=== PATIENT | male | born 1970 | race Caucasian/White ===

== ENCOUNTER 2018-06-26 13:55 | Emergency (ER) | payer BC ==
[2018-06-26 14:35] VITALS: RESP 18
[2018-06-26] MEDS ORDERED: BUPIVACAIN-EPI 0.5%-1:200,000 30 ML VIAL SQ STA (15:21)
--- NOTE | 2018-06-26 16:01 | ED ---
ENT HPI - General Chief complaint: Dental/Oral Stated complaint: Dental pain Time Seen by Provider: 06/26/18 14:36 Source: patient Mode of arrival: ambulatory Limitations: no limitations - History of Present Illness Initial comments: This a 48-year-old male who denies past medical history presenting today for chief complaint of dental pain. Patient states that he is supposed to have a root canal 3 weeks, however he is unable to tolerate the pain of his right lower tooth. Patient presented to his dentist and they who put a patch using a putty over the tooth and said that they could give him in for appointment on Thursday or Thursday. Patient has been taking [place] for pain management which he states has not helped at all. Patient was requesting an intraoral nerve block in order to help alleviate the pain, even if it is just temporary. Patient is currently on Pen-Vee K as prescribed by dentist. Patient denies fever, chills, night sweats, facial swelling, swelling below the tongue, headache, difficulty breathing, difficulty swallowing, neck swelling. Remainder ROS negative. Patient appears well upon arrival, patient blood pressure elevated. - Related Data Home Medications Medication Instructions Recorded Confirmed No Known Home Medications 06/26/18 06/26/18 Allergies Allergy/AdvReac Type Severity Reaction Status Date / Time No Known Allergies Allergy Verified 06/26/18 14:34 Review of Systems ROS Statement: Those systems with pertinent positive or pertinent negative responses have been documented in the HPI. ROS Other: All systems not noted in ROS Statement are negative. Constitutional: Denies: fever, chills, night sweats Eyes: Denies: eye pain, vision change ENT: Reports: dental pain (tooth #30). Denies: ear pain, throat pain Respiratory: Denies: cough, dyspnea, hemoptysis, stridor Cardiovascular: Denies: chest pain, palpitations, dyspnea on exertion, edema Endocrine: Denies: fatigue Gastrointestinal: Denies: abdominal pain, nausea, vomiting, diarrhea, constipation Genitourinary: Denies: urgency, dysuria, frequency, hematuria Skin: Denies: rash, lesions Neurological: Denies: headache, weakness, numbness, paresthesias, confusion General Exam - General Exam Comments Initial Comments: General: The patient is awake and alert, in no distress, and does not appear acutely ill. Eye: Pupils are equal, round and reactive to light, extra-ocular movements are intact. No nystagmus. There is normal conjunctiva bilaterally. No signs of icterus. Ears, nose, mouth and throat: There are moist mucous membranes and no oral lesions. Tooth #30 has white putty over the tooth. Pain to percussion of tooth #30. No palpable abscess. Neck: The neck is supple, there is no tenderness or JVD. Cardiovascular: There is a regular rate and rhythm. No murmur, rub or gallop is appreciated. Respiratory: Lungs are clear to auscultation, respirations are non-labored, breath sounds are equal. No wheezes, stridor, rales, or rhonchi. Musculoskeletal: Normal ROM, no tenderness. Strength 5/5. Sensation intact. Pulses equal bilaterally 2+. Neurological: A&O x 3. CN II-XII intact, There are no obvious motor or sensory deficits. Coordination appears grossly intact. Speech is normal. Skin: Skin is warm and dry and no rashes or lesions are noted. Psychiatric: Cooperative, appropriate mood & affect, normal judgment. Limitations: no limitations Course Vital Signs 06/26/18 06/26/18 14:32 16:10 Temperature 97.5 F L 97.1 F L Pulse Rate 77 73 Respiratory 18 18 Rate Blood Pressure 187/79 188/90 O2 Sat by Pulse 97 96 Oximetry Procedures - Nerve Block Consent Obtained: verbal consent Time Out Performed: Yes Local Anesthetic Used: MARCAINE 0.5% with EPI Amount of anesthesia used: 2 Side: right Intraoral Nerve Block: inferior alveolar Procedure Successful: Yes Complications: none Patient Tolerated Procedure: well Additional Comments: Pt tolerated the procedure well, stating he received instant relief. Medical Decision Making - Medical Decision Making Intraoral nerve block inferior alveolar performed, patient tolerated procedure well. He stated he had immediate relief. There is no evidence of dental abscess at this time. Patient did not want any further oral pain medications. Patient was instructed to keep taking his penicillin VK as well as [place] for pain management as directed by dentist. Patient agrees with plan, stating he was ready for discharge. Upon discharge patient blood pressure elevated, patient was offered medication however he denied at this time feel of a blood pressure is due to pain. Case discussed with Dr. Loya who agreed with plan. Pt was discharged in stable condition with f/u with dentist on Thursday as scheduled. Disposition Clinical Impression: Pain, dental Disposition: HOME SELF-CARE Condition: Good Instructions: Toothache (ED) Additional Instructions: Please continue medication as discussed. Please follow-up with dentist as scheduled. Please return to emergency room if the symptoms increase or worsen or for any other concerns. Is patient prescribed a controlled substance at d/c from ED?: No Referrals: None,Stated [Primary Care Provider] - 1-2 days Time of Disposition: 16:01
[2018-06-26 16:27] VITALS: BP 188/90; PULSE 73; TEMP 97.1
== END 2018-06-26 16:10 | disposition home or self-care (01) ==
LOC: EC 13:55
DX: K08.89 Other specified disorders of teeth and supporting structures (principal)
CPT/HCPCS: 64400; 99282

== ENCOUNTER → 2019-04-05 | Outpatient (CLI) | payer BC ==
--- NOTE | 2019-04-05 17:13 | CONS ---
CONSULTATION REASON FOR CONSULTATION: Hypersomnia. This is a very pleasant 49-year-old male patient who has been having issues with hypersomnia for at least the past 4-5 years. The patient has loud snoring. He quits breathing and has witnessed apneas as reported by his . He wakes up gasping for air and he grinds his teeth. He lives in [facility] and he drives back and forth to [place]; that is a 45-[address] drive. On a few instances he has dozed off behind the wheel yet has never been involved in a motor vehicle accident. He goes to bed between 9 and 10 p.m. and gets out of bed around 4 a.m. On weekends he sleeps between 1 a.m. and 8 a.m. Despite all this, he feels tired and sleepy and he can nap easily during the day. He has gained about 50 pounds over the past 15-20 years. No personal family history of sleep apnea. No history of insomnia. No restlessness in the lower extremities. No anxiety or depression. Medical history is essentially negative. PAST MEDICAL HISTORY: Negative. SURGICAL HISTORY: 1. Appendectomy. 2. Removal of kidney stones. DRUG ALLERGIES: NOT KNOWN. OUTPATIENT MEDICATIONS: None. SOCIAL HISTORY: He smokes cigars and drinks alcohol socially. No substance abuse. FAMILY HISTORY: Father of complications of stroke. Mother is alive. Siblings are healthy. REVIEW OF SYSTEMS: Fourteen-point review of systems was done. The patient has no heartburn, no palpitations, no anxiety or panic attacks. The patient does not do any sleepwalking or sleeptalking. No parasomnias have been noted. No sleep paralysis. No hallucinations. No cataplexy has been reported. No nighttime heartburn. No nighttime chest pain or shortness of breath. No nocturia. The rest of the positive findings are all mentioned above in the history of present illness. PHYSICAL EXAMINATION: VITAL SIGNS: BP is 160/77, pulse 83, respirations 18, temperature 98.6, saturation 97% on room air. Height is 6 feet 1 inch. Weight is 269. BMI is 35.6. Tamarack score is 15. Neck size is 17-1/2 inches. GENERAL APPEARANCE: Calm, comfortable. HEAD: Atraumatic, normocephalic. NECK: Supple. No JVD. No goiter or neck mass. Mallampati class IV. LUNGS: Clear to auscultation. No wheezes or rhonchi. HEART: Heart sounds are regular rate and rhythm. Normal S1, S2. No S3, S4. No murmurs. ABDOMEN: Soft, nontender. EXTREMITIES: No edema. No cyanosis or clubbing. NEUROLOGIC: Alert and oriented x3. No focal neurological deficits. PSYCHIATRIC: The patient has no anxiety or depression. SKIN: Negative for any wounds or ulceration. IMPRESSION: 1. Chronic hypersomnia; Tamarack score of 15. High suspicion for obstructive sleep apnea based on the reported symptoms of snoring and witnessed apneas. 2. Obesity with interval weight gain over the years. Current BMI is 35.6. 3. Hypersomnia; Tamarack score of 15. 4. Loud snoring. 5. Negative medical history and review of system. PLAN: 1. Proceed with a screening polysomnogram. 2. Encourage weight loss. 3. Driving precautions were given. The patient was advised not to drive, especially if feeling drowsy or sleepy. 4. Implement good sleep hygiene measures. 5. Will continue to follow. MMODL / IJN: [id number] /
== END | disposition home or self-care (01) ==
LOC: SLEEP 15:16
PROVIDERS: ATTEND Internal Medicine Critical Care Medicine
DX: G47.10 Hypersomnia, unspecified (principal); R06.83 Snoring; R06.81 Apnea, not elsewhere classified; E66.9 Obesity, unspecified; F17.290 Nicotine dependence, other tobacco product, uncomplicated; Z68.35 Body mass index [BMI] 35.0-35.9, adult
CPT/HCPCS: 99211

== ENCOUNTER 2020-12-26 00:12 | Inpatient (IN) | payer BC ==
[2020-12-26] MEDS ORDERED: NITROGLYCERIN SL TABS 0.4 MG TAB SUBLINGUAL STA (00:58)
--- NOTE | 2020-12-26 01:00 | ED ---
SOB HPI - General Chief Complaint: Shortness of Breath Stated Complaint: SOB Time Seen by Provider: 12/26/20 00:27 Source: patient Mode of arrival: wheelchair Limitations: no limitations - History of Present Illness Initial Comments: This patient is a 50-year-old man who presents with complaint that he has had worsening respiratory status going back approximately 2 weeks. The patient states that it mainly affects him when he tries to lie down for sleep. He states he has not been able to lie down for over 3 hours a night. He finds he has to get up and try to sleep in the reclining chair which is angled up. Patient has also noted occasional palpitations. No chest pain. He has not noted change in urination. States that his legs may be slightly swollen though not markedly. He was recently started on a blood pressure medication and states that since that occurred he has been having some constipation, but he has not noticed any dark or tarry stools MD Complaint: shortness of breath Onset/Timin -: week(s) Severity scale (1-10): 0 Consistency: constant Improves With: upright position Worsens With: lying flat Associated Symptoms: denies other symptoms Treatments Prior to Arrival: none - Related Data Home Oxygen Therapy: No Home Medications Medication Instructions Recorded Confirmed No Known Home Medications 06/26/18 06/26/18 Allergies Allergy/AdvReac Type Severity Reaction Status Date / Time No Known Allergies Allergy Verified 12/26/20 00:19 Review of Systems ROS Statement: Those systems with pertinent positive or pertinent negative responses have been documented in the HPI. ROS Other: All systems not noted in ROS Statement are negative. Constitutional: Denies: fever, chills Respiratory: Reports: cough, dyspnea. Denies: wheezes Cardiovascular: Reports: orthopnea. Denies: chest pain, palpitations, edema, syncope Gastrointestinal: Reports: constipation. Denies: abdominal pain, vomiting, diarrhea, melena, hematochezia Genitourinary: Denies: dysuria, hematuria Musculoskeletal: Denies: back pain Skin: Denies: rash Neurological: Denies: headache, weakness, numbness Past Medical History Past Medical History: Hypertension Additional Past Medical History / Comment(s): kidney stones History of Any Multi-Drug Resistant Organisms: None Reported Past Surgical History: Appendectomy Past Psychological History: Depression Smoking Status: Former smoker Past Alcohol Use History: Rare Past Drug Use History: None Reported General Exam Limitations: no limitations General appearance: alert, in no apparent distress Head exam: Present: atraumatic, normocephalic Eye exam: Present: normal appearance. Absent: scleral icterus, conjunctival injection ENT exam: Present: normal oropharynx Neck exam: Present: normal inspection Respiratory exam: Present: rales. Absent: respiratory distress, wheezes, rhonchi, stridor, accessory muscle use, decreased breath sounds Cardiovascular Exam: Present: regular rate (With occasional extrasystoles), normal rhythm, normal heart sounds. Absent: systolic murmur, diastolic murmur, rubs, gallop GI/Abdominal exam: Present: soft. Absent: distended, tenderness, guarding, rebound, rigid, mass, pulsatile mass Extremities exam: Present: normal inspection, normal capillary refill. Absent: pedal edema, calf tenderness Back exam: Present: normal inspection. Absent: CVA tenderness (R), CVA tenderness (L) Neurological exam: Present: alert Skin exam: Present: warm, dry, intact, normal color. Absent: rash Course Vital Signs 12/26/20 12/26/20 00:15 01:37 Temperature 97.8 F Pulse Rate 91 74 Respiratory 22 18 Rate Blood Pressure 158/91 116/72 O2 Sat by Pulse 99 97 Oximetry Medical Decision Making - Lab Data Result diagrams: 12/26/20 01:03 12/26/20 01:03 Lab Results 12/26/20 12/26/20 12/26/20 Range/Units 00:23 01:03 01:03 WBC 10.3 (3.8-10.6) k/uL RBC 5.27 (4.30-5.90) m/uL Hgb 15.7 (13.0-17.5) gm/dL Hct 43.5 (39.0-53.0) % MCV 82.5 (80.0-100.0) fL MCH 29.9 (25.0-35.0) pg MCHC 36.2 (31.0-37.0) g/dL RDW 13.2 (11.5-15.5) % Plt Count 202 (150-450) k/uL MPV 7.5 Neutrophils % 66 % Lymphocytes % 24 % Monocytes % 6 % Eosinophils % 2 % Basophils % 1 % Neutrophils # 6.8 (1.3-7.7) k/uL Lymphocytes # 2.4 (1.0-4.8) k/uL Monocytes # 0.7 (0-1.0) k/uL Eosinophils # 0.2 (0-0.7) k/uL Basophils # 0.1 (0-0.2) k/uL PT 10.3 (9.0-12.0) sec INR 1.0 (<1.2) APTT 23.3 (22.0-30.0) sec D-Dimer 0.52 (<0.60) mg/L FEU Sodium (137-145) mmol/L Potassium (3.5-5.1) mmol/L Chloride (98-107) mmol/L Carbon Dioxide (22-30) mmol/L Anion Gap mmol/L BUN (9-20) mg/dL Creatinine (0.66-1.25) mg/dL Est GFR (CKD-EPI)AfAm (>60 ml/min/1.73 sqM) Est GFR (CKD-EPI)NonAf (>60 ml/min/1.73 sqM) Glucose (74-99) mg/dL Plasma Lactic Acid Jhon (0.7-2.0) mmol/L Calcium (8.4-10.2) mg/dL Magnesium (1.6-2.3) mg/dL Total Bilirubin (0.2-1.3) mg/dL AST (17-59) U/L ALT (4-49) U/L Alkaline Phosphatase (38-126) U/L Troponin I (0.000-0.034) ng/mL NT-Pro-B Natriuret Pep pg/mL Total Protein (6.3-8.2) g/dL Albumin (3.5-5.0) g/dL Coronavirus (PCR) Not Detected (Not Detectd) 12/26/20 12/26/20 12/26/20 Range/Units 01:03 01:03 01:03 WBC (3.8-10.6) k/uL RBC (4.30-5.90) m/uL Hgb (13.0-17.5) gm/dL Hct (39.0-53.0) % MCV (80.0-100.0) fL MCH (25.0-35.0) pg MCHC (31.0-37.0) g/dL RDW (11.5-15.5) % Plt Count (150-450) k/uL MPV Neutrophils % % Lymphocytes % % Monocytes % % Eosinophils % % Basophils % % Neutrophils # (1.3-7.7) k/uL Lymphocytes # (1.0-4.8) k/uL Monocytes # (0-1.0) k/uL Eosinophils # (0-0.7) k/uL Basophils # (0-0.2) k/uL PT (9.0-12.0) sec INR (<1.2) APTT (22.0-30.0) sec D-Dimer (<0.60) mg/L FEU Sodium 139 (137-145) mmol/L Potassium 3.9 (3.5-5.1) mmol/L Chloride 108 H (98-107) mmol/L Carbon Dioxide 21 L (22-30) mmol/L Anion Gap 10 mmol/L BUN 13 (9-20) mg/dL Creatinine 0.96 (0.66-1.25) mg/dL Est GFR (CKD-EPI)AfAm >90 (>60 ml/min/1.73 sqM) Est GFR (CKD-EPI)NonAf >90 (>60 ml/min/1.73 sqM) Glucose 107 H (74-99) mg/dL Plasma Lactic Acid Jhon 1.1 (0.7-2.0) mmol/L Calcium 9.1 (8.4-10.2) mg/dL Magnesium 2.0 (1.6-2.3) mg/dL Total Bilirubin 1.2 (0.2-1.3) mg/dL AST 21 (17-59) U/L ALT 18 (4-49) U/L Alkaline Phosphatase 96 (38-126) U/L Troponin I 0.015 (0.000-0.034) ng/mL NT-Pro-B Natriuret Pep pg/mL Total Protein 6.8 (6.3-8.2) g/dL Albumin 4.0 (3.5-5.0) g/dL Coronavirus (PCR) (Not Detectd) 12/26/20 Range/Units 01:03 WBC (3.8-10.6) k/uL RBC (4.30-5.90) m/uL Hgb (13.0-17.5) gm/dL Hct (39.0-53.0) % MCV (80.0-100.0) fL MCH (25.0-35.0) pg MCHC (31.0-37.0) g/dL RDW (11.5-15.5) % Plt Count (150-450) k/uL MPV Neutrophils % % Lymphocytes % % Monocytes % % Eosinophils % % Basophils % % Neutrophils # (1.3-7.7) k/uL Lymphocytes # (1.0-4.8) k/uL Monocytes # (0-1.0) k/uL Eosinophils # (0-0.7) k/uL Basophils # (0-0.2) k/uL PT (9.0-12.0) sec INR (<1.2) APTT (22.0-30.0) sec D-Dimer (<0.60) mg/L FEU Sodium (137-145) mmol/L Potassium (3.5-5.1) mmol/L Chloride (98-107) mmol/L Carbon Dioxide (22-30) mmol/L Anion Gap mmol/L BUN (9-20) mg/dL Creatinine (0.66-1.25) mg/dL Est GFR (CKD-EPI)AfAm (>60 ml/min/1.73 sqM) Est GFR (CKD-EPI)NonAf (>60 ml/min/1.73 sqM) Glucose (74-99) mg/dL Plasma Lactic Acid Jhon (0.7-2.0) mmol/L Calcium (8.4-10.2) mg/dL Magnesium (1.6-2.3) mg/dL Total Bilirubin (0.2-1.3) mg/dL AST (17-59) U/L ALT (4-49) U/L Alkaline Phosphatase (38-126) U/L Troponin I (0.000-0.034) ng/mL NT-Pro-B Natriuret Pep 781 pg/mL Total Protein (6.3-8.2) g/dL Albumin (3.5-5.0) g/dL Coronavirus (PCR) (Not Detectd) - EKG Data -: EKG Interpreted by Me EKG shows normal: sinus rhythm (With PVCs), axis (Normal), intervals (Normal), QRS complexes (Incomplete left bundle branch block), ST-T waves (Normal) Rate: normal (Rate 84 bpm) Interpretation: LVH Disposition Clinical Impression: Congestive heart failure Disposition: ADMITTED IP TO THIS HOSP Condition: Good Is patient prescribed a controlled substance at d/c from ED?: No Referrals: Sagar Shannon DO [Primary Care Provider] - 1-2 days
--- NOTE | 2020-12-26 01:01 | XR ---
EXAM: XR Chest, 2 Views CLINICAL HISTORY: ITS.REASON XR Reason: shortness of breath TECHNIQUE: Frontal and lateral views of the chest. COMPARISON: No relevant prior studies available. FINDINGS: Lungs: Prominent central pulmonary vasculature. Mildly increased interstitial markings bilaterally. Mild fluid or thickening of the fissures on the lateral view. No focal consolidation. Pleural space: See above. No pneumothorax. Heart: Borderline cardiomegaly. Mediastinum: Unremarkable. Bones/joints: Unremarkable. IMPRESSION: Findings may represent mild pulmonary edema.
[2020-12-26 01:13] LABS: Basophils # (A) 0.1 k/uL (0-0.2); Basophils % (A) 1 %; Eosinophils # (A) 0.2 k/uL (0-0.7); Eosinophils % (A) 2 %; HCT 43.5 % (39.0-53.0); HGB 15.7 gm/dL (13.0-17.5); Lymphocytes # (A) 2.4 k/uL (1.0-4.8); Lymphocytes % (A) 24 %; MCH 29.9 pg (25.0-35.0); MCHC 36.2 g/dL (31.0-37.0); MCV 82.5 fL (80.0-100.0); Mean Platelet Volume 7.5; Monocytes # (A) 0.7 k/uL (0-1.0); Monocytes % (A) 6 %; Neutrophils # (A) 6.8 k/uL (1.3-7.7); Neutrophils % (A) 66 %; Platelet Count 202 k/uL (150-450); RBC 5.27 m/uL (4.30-5.90); RDW 13.2 % (11.5-15.5); WBC 10.3 k/uL (3.8-10.6)
[2020-12-26 01:26] LABS: D-Dimer 0.52 mg/L FEU (<0.60); Partial Thromboplastin Time 23.3 sec (22.0-30.0); Prothrombin Time 10.3 sec (9.0-12.0)
[2020-12-26 01:28] LABS: ALT 18 U/L (4-49); AST 21 U/L (17-59); African American GFR (CKD) >90 (>60 ml/min/1.73 sqM); Alkaline Phosphatase 96 U/L (38-126); Anion Gap 10 mmol/L; Blood Urea Nitrogen 13 mg/dL (9-20); Calcium 9.1 mg/dL (8.4-10.2); Carbon Dioxide 21 mmol/L (22-30); Chloride 108 mmol/L (98-107); Glucose 107 mg/dL (74-99); Non-African American GFR(CKD) >90 (>60 ml/min/1.73 sqM); Potassium 3.9 mmol/L (3.5-5.1); Sodium 139 mmol/L (137-145); Total Bilirubin 1.2 mg/dL (0.2-1.3); Total Protein 6.8 g/dL (6.3-8.2)
[2020-12-26] MEDS ORDERED: MORPHINE SULFATE 4 MG/ML SYRINGE IV STA (02:32)
[2020-12-26] MEDS ORDERED: NITROGLYCERIN OINT 1 INCH/GM PACKET TOPICAL STA (02:33)
[2020-12-26 09:20] LABS: Glucose,Whole Blood 103 mg/dL (75-99)
[2020-12-26] MEDS: NITROGLYCERIN OINT 1 INCH/GM PACKET TOPICAL SCH ×4 (09:29→22:13)
[2020-12-26] MEDS: buPROPion SR 150 MG TABLET.ER PO SCH ×2 (10:43→20:13)
[2020-12-26] MEDS: METOPROLOL SUCCINATE (ER) 25 MG TAB.ER.24H PO SCH (10:43)
--- NOTE | 2020-12-26 11:09 | ECHOF ---
Referral Reason:Heart Failure MEASUREMENTS -------- HEIGHT: 157.5 cm WEIGHT: 120.2 kg BP: IVSd: 1.1 cm (0.6 - 1.1) LVIDd: 6.4 cm (3.9 - 5.3) LVPWd: 1.3 cm (0.6 - 1.1) IVSs: 1.1 cm LVIDs: 5.7 cm LVPWs: 1.3 cm Ao Diam: 3.6 cm (2.0 - 3.7) LA Diam: 4.8 cm (2.7 - 3.8) MV EXCURSION: 9.771 mm (> 18.000) MV EF SLOPE: 79 mm/s (70 - 150) EPSS: 2.4 cm MV E Misael: 1.01 m/s MV DecT: 88 ms MV A Misael: 0.37 m/s MV E/A Ratio: 2.75 AV maxP.43 mmHg AV meanP.68 mmHg AR PHT: 293 ms RAP: 5.00 mmHg RVSP: 49.08 mmHg FINDINGS -------- Undetermined rhythm. This was a techncally difficult study with suboptimal views, , Definity utilized for enhancement of i mages. The left ventricle is severely dilated. There is moderate global hypokinesis of LV . Overall left ventricular systolic function is moderate-severely impaired with, an EF between 30 - 35 %. The right ventricle is normal in size. The left atrium is moderately dilated. The right atrial size is normal. Lumason used There is severe aortic regurgitation. Peak/mean gradient across the Aortic Valve is 15.43mmHg / 8.6 8mmHg. Functionally bicuspid aortic valve. Mild mitral regurgitation is present. Mild tricuspid regurgitation present. There is moderate pulmonary hypertension. The right ventric ular systolic pressure, as measured by Doppler, is 49.08mmHg. Trace/mild (physiologic) pulmonic regurgitation. The aortic root size is normal. There is no pericardial effusion. CONCLUSIONS -------- 1. This was a techncally difficult study with suboptimal views, , Definity utilized for enhancement o f images. 2. The left ventricle is severely dilated. 3. There is moderate global hypokinesis of LV . 4. Overall left ventricular systolic function is moderate-severely impaired with, an EF between 30 - 35 %. 5. The right ventricle is normal in size. 6. The left atrium is moderately dilated. 7. The right atrial size is normal. 8. Lumason used 9. There is severe aortic regurgitation. 10. Peak/mean gradient across the Aortic Valve is 15.43mmHg / 8.68mmHg. 11. Functionally bicuspid aortic valve. 12. Mild mitral regurgitation is present. 13. Mild tricuspid regurgitation present. 14. There is moderate pulmonary hypertension. 15. The right ventricular systolic pressure, as measured by Doppler, is 49.08mmHg. 16. Trace/mild (physiologic) pulmonic regurgitation. 17. The aortic root size is normal. 18. There is no pericardial effusion. ELECTRIC LOCOMOTIVE FIRER/FIREMAN: Emily Fregoso RDCS
[2020-12-26] MEDS ORDERED: lisinopriL 5 MG TAB PO STA (14:53)
[2020-12-26 15:03] VITALS: BMI 33.1
--- NOTE | 2020-12-26 15:06 | P.CRDCN ---
History of Present Illness History of present illness: HISTORY OF PRESENTING ILLNESS This is a pleasant 50-year-old male past medical history significant for hypertension. He does not follow with a registration scheduling specialist. We have been asked to see in consultation for shortness of breath. Patient resents the emergency department complaining that he had had worsening respiratory status going back approximately 2 weeks. He states his shortness of breath mainly affects him when he lies flat in bed or when he falls asleep. He does wake up in the middle night short of breath. He does find that he has to sleep in the reclining chair. He does notice occasional fluttering feelings in his chest. He denies chest pain, nausea, dizziness, lightheadedness, syncope. He does endorse some tingling in his bilateral fingers. He denies any change in urination patterns. He denies any feelings of increased thirst. He states that he's had some leg swelling where he feels that his socks are tight however does not have any currently. He does endorse some constipation. He denies tobacco use, alcohol use, or illicit drug use. He denies history of heart failure, [place], Diabetes, Stroke, or any cardiac disease. He denies family history of cardiac disease. Father had a stroke in his 80s. Laboratory data reviewed, CBC unremarkable, d- dimer 0.52, sodium 139, potassium 3.9, serum creatinine 0.96, magnesium 2.0, troponin negative 3, BNP 781, covid-19 PCT negative. Chest x-ray revealed prominent central pulmonary vasculature. Vital signs blood pressure 134/74, heart rate 78, afebrile, oxygen saturation is 98% on 2 L nasal cannula. EKG sinus rhythm with PVC, left ventricular hypertrophy, no significant STT wave abnormalities. Current home cardiac medications include metoprolol succinate 25mg daily. 2D echocardiogram revealed EF 30-35%, LA is moderately dilated, Functionally Bicuspid aortic valve, Severe aortic regurgitation, mean gradient 8mmHg, mild MR, mild TR, moderate pulmonary hypertension, RVSP 49mmHg, REVIEW OF SYSTEMS At the time of my exam: CONSTITUTIONAL: Appears short of breath, not in any distress. Denies fever or chills. CARDIOVASCULAR: +shortness of breath + orthopnea, +PND and + palpitations.Denies chest pain RESPIRATORY: + occasional cough. GASTROINTESTINAL: Denies abdominal pain, diarrhea, constipation, nausea or vomiting. MUSCULOSKELETAL: Denies myalgias. NEUROLOGIC: +tingling in bilateral fingers. Denies numbness, headacbe or weakness. ENDOCRINE: Denies fatigue, weight change, polydipsia or polyurina. GENITOURINARY: Denies burning, hematuria or urgency with micturation. HEMATOLOGIC: Denies history of anemia or bleeding. PHYSICAL EXAMINATION CONSTITUTIONAL: No apparent distress. HEENT: Head is normocephalic. Pupils are equal, round. Sclerae anicteric. Mucous membranes of the mouth are moist. + mild JVD. No carotid bruit. CHEST EXAMINATION: Lungs are clear to auscultation. No chest wall tenderness is noted on palpation or with deep breathing. HEART EXAMINATION: Regular rate and rhythm. S1, S2 heard. Possibly a mild murmur to the right sternal border. No gallops or rub. ABDOMEN: Soft, nontender. Positive bowel sounds. EXTREMITIES: 2+ peripheral pulses, no lower extremity edema and no calf tenderness. SKIN: intact NEUROLOGIC EXAMINATION: Patient is awake, alert and oriented x3. ASSESSMENT Shortness of breath Acute heart failure with reduced ejection fraction EF 30-35%, most likely related to bicuspid aortic valve, severe aortic valve insufficiency. Severe aortic valve insufficiency History of Hypertension PLAN -Echocardiogram obtained and reviewed. Discussed results and management options with patient and family at bedside. Patient was unaware that he had a bicuspid a ortic valve -Will start IV Lasix 20mg BID -Start Lisinopril 5mg daily -Continue beta ben- metoprolol succinate 25mg daily -Patient will need YOVANY and cardiac catheterization, we will continue with diuresis at this time and make patient more stable and comfortable before we proceed with these procedures. This was discussed that these can be done inpatient or possibly outpatient. We will discuss this further and follow up with the patient. Nurse Practitioner note has been reviewed, I agree with a documented findings and plan of care. Patient was seen and examined. Past Medical History Past Medical History: Hypertension Additional Past Medical History / Comment(s): kidney stones History of Any Multi-Drug Resistant Organisms: None Reported Past Surgical History: Appendectomy Past Anesthesia/Blood Transfusion Reactions: No Reported Reaction Past Psychological History: Depression Smoking Status: Former smoker Past Alcohol Use History: Rare Past Drug Use History: None Reported Medications and Allergies Home Medications Medication Instructions Recorded Confirmed Type Metoprolol Succinate (ER) [Toprol 25 mg PO DAILY 12/26/20 12/26/20 History Xl] buPROPion HCL [buPROPion HCL SR] 150 mg PO BID 12/26/20 12/26/20 History Allergies Allergy/AdvReac Type Severity Reaction Status Date / Time No Known Allergies Allergy Verified 12/26/20 07:59 Physical Exam Vitals: Vital Signs Temp Pulse Pulse Resp BP BP Pulse Ox 12/26/20 07:00 97.7 F 62 16 120/68 97 12/26/20 03:35 97.5 F L 73 18 130/73 97 12/26/20 01:37 74 18 116/72 97 12/26/20 00:15 97.8 F 91 22 158/91 99 Intake and Output 12/25/20 12/26/20 12/26/20 22:59 06:59 14:59 Other: # Voids 1 Weight 120.202 kg Results 12/26/20 01:03 12/26/20 01:03 Cardiac Enzymes 12/26/20 12/26/20 12/26/20 Range/Units 01:03 01:03 04:46 AST 21 (17-59) U/L Troponin I 0.015 <0.012 (0.000-0.034) ng/mL 12/26/20 Range/Units 07:04 AST (17-59) U/L Troponin I <0.012 (0.000-0.034) ng/mL Coagulation 12/26/20 Range/Units 01:03 PT 10.3 (9.0-12.0) sec APTT 23.3 (22.0-30.0) sec CBC 12/26/20 Range/Units 01:03 WBC 10.3 (3.8-10.6) k/uL RBC 5.27 (4.30-5.90) m/uL Hgb 15.7 (13.0-17.5) gm/dL Hct 43.5 (39.0-53.0) % Plt Count 202 (150-450) k/uL Comprehensive Metabolic Panel 12/26/20 Range/Units 01:03 Sodium 139 (137-145) mmol/L Potassium 3.9 (3.5-5.1) mmol/L Chloride 108 H (98-107) mmol/L Carbon Dioxide 21 L (22-30) mmol/L BUN 13 (9-20) mg/dL Creatinine 0.96 (0.66-1.25) mg/dL Glucose 107 H (74-99) mg/dL Calcium 9.1 (8.4-10.2) mg/dL AST 21 (17-59) U/L ALT 18 (4-49) U/L Alkaline Phosphatase 96 (38-126) U/L Total Protein 6.8 (6.3-8.2) g/dL Albumin 4.0 (3.5-5.0) g/dL Current Medications Generic Name Dose Route Start Last Admin Trade Name Freq PRN Reason Stop Dose Admin Aspirin 325 mg 12/27/20 02:38 Aspirin 325 Mg Tab PO DAILY SWATI Nitroglycerin 0.5 inch 12/26/20 09:00 Nitroglycerin Oint 1 Inch/Gm Packet TOPICAL QID SWATI Sodium Chloride 10 ml 12/26/20 09:00 Sodium Chloride 0.9% Flush 10 Ml Syringe IV BID SWATI Intake and Output 12/25/20 12/26/20 12/26/20 22:59 06:59 14:59 Other: # Voids 1 Weight 120.202 kg 12/26/20 01:03 12/26/20 01:03
[2020-12-26] MEDS: FUROSEMIDE 10 MG/ML 2 ML VIAL IV SCH ×2 (15:28→20:13)
[2020-12-26] MEDS ORDERED: ACETAMINOPHEN TAB 325 MG TAB PO PRN (16:06)
[2020-12-26] MEDS ORDERED: FUROSEMIDE 10 MG/ML 2 ML VIAL IV SCH (21:00)
--- NOTE | 2020-12-26 21:08 | HP ---
HISTORY AND PHYSICAL HISTORY OF PRESENT ILLNESS: 50-year-old white male with past medical history hypertension, came in for shortness of breath over the last 2-3 weeks with a large amount of weight gain. He has PND, orthopnea, dyspnea with any exertion. He has large amount of weight gain and leg swelling. Some tingling in his extremities. Denies any history of alcohol or drug use tobacco, any history of heart attacks or strokes or diabetes. Father had a stroke in his 80s. Labs were reviewed. IMPRESSION: He is admitted for: 1. Congestive heart failure. 2. Echocardiogram shows 30-35 percent ejection fraction, LA moderately dilated. 3. Bicuspid aortic valve. 4. Severe aortic regurgitation. 5. Mild mitral regurgitation, mild tricuspid regurgitation. 6. Pulmonary hypertension. REVIEW OF SYSTEMS: Fourteen-point review of systems negative except for mentioned in HPI. PHYSICAL EXAM: Well male in no acute distress. HEAD: Normocephalic, atraumatic. LUNGS are clear to auscultation. HEART: S1, S2. ABDOMEN: Soft, normal bowel sounds. EXTREMITIES: No cyanosis, 2+ edema bilaterally. SKIN: Intact. NEUROLOGIC: Cranial nerves intact. ASSESSMENT: 1. Acute systolic versus congestive heart failure. 2. Acute hypoxemia secondary to congestive heart failure with reduced ejection fraction, most likely related to bicuspid aortic valve, severe aortic valve insufficiency. 3. Hypertension. We are going to give him beta blockers, Lasix, lisinopril. Consult. He is going to get a YOVANY and will get cardiac thoracic surgery for possible valve replacement. Please see further orders. MMODL / IJN: [id number] /
[2020-12-27] MEDS: lisinopriL 5 MG TAB PO SCH (06:01)
[2020-12-27] MEDS: ASPIRIN 325 MG TAB PO SCH ×2 (06:01→06:09)
[2020-12-27] MEDS: METOPROLOL SUCCINATE (ER) 25 MG TAB.ER.24H PO SCH (06:01)
[2020-12-27] MEDS: buPROPion SR 150 MG TABLET.ER PO SCH ×2 (06:09→21:31)
[2020-12-27] MEDS: NITROGLYCERIN OINT 1 INCH/GM PACKET TOPICAL SCH ×4 (06:11→21:38)
[2020-12-27] MEDS ORDERED: ATORVASTATIN 80 MG TAB PO ONE (07:00)
[2020-12-27] MEDS: FUROSEMIDE 10 MG/ML 2 ML VIAL IV SCH ×2 (09:08→21:32)
--- NOTE | 2020-12-27 10:32 | P.GSCN ---
<Kiarra Brown - Last Filed: 12/27/20 10:11> History of Present Illness Consult date: 12/27/20 Reason for Consult: Aortic insufficiency Requesting physician: Nito Rosas History of present illness: This is a 50-year-old active gentleman who follows on an outpatient basis with Dr. Fabián Shannon. He has a previous medical history of hypertension, kidney stones, bronchitis, questionable CHRIS, previous tobacco dependence, and no family history of premature coronary artery disease. He has been experiencing shortness of breath for the last 2 weeks, particularly with laying down causing him to get very little sleep as he has needed to get up and try to sleep in a recliner. In addition he reports lower extremity edema. Upon further questioning the patient states he thinks this actually has been going on for quite some time, possibly even longer than a year, but it has gotten worse over the last 2 weeks. He denies any fever, chills, lightheadedness or dizziness, nausea, vomiting, sick contacts. He reported to [facility] emergency room yesterday. Chest x-ray demonstrated prominent central pulmonary vasculature with mildly increased interstitial markings bilaterally. EKG demonstrated sinus rhythm with occasional PVCs. The patient was admitted for evaluation and treatment with consultation placed to cardiology for new onset congestive heart failure. Transthoracic echocardiogram was completed demonstrating severely dilated left ventricle, moderate global hypokinesis of the left ventricle, moderate to severely impaired LV function with EF 30-35%, moderately dilated left atrium, severe aortic regurgitation with a functionally bicuspid aortic valve, peak/mean gradient 15.43/8.68 mmHg, mild mitral regurgi tation, mild tricuspid regurgitation with moderate pulmonary hypertension, and no enlargement of the aortic root. Due to these findings Dr. Herman from cardiothoracic surgery was consulted by Dr. Rosas for surgical recommendations. Review of Systems Review of systems was completed and was negative except as noted - Cardiovascular Reports as per HPI, Reports high blood pressure, Reports leg edema, Reports shortness of breath - Respiratory Reports snoring Past Medical History Past Medical History: Hypertension Additional Past Medical History / Comment(s): kidney stones; possible CHRIS- patient was seen by pulmonology in 03/2019 but didn't follow up with testing for CHRIS History of Any Multi-Drug Resistant Organisms: None Reported Past Surgical History: Appendectomy Past Anesthesia/Blood Transfusion Reactions: No Reported Reaction Past Psychological History: Depression Smoking Status: Former smoker Past Alcohol Use History: Rare Past Drug Use History: None Reported - Past Family History Mother Family Medical History: Cancer Additional Family Medical History / Comment(s): still alive at 78 y/o Father Family Medical History: CVA/TIA Additional Family Medical History / Comment(s): at 86 y/o Medications and Allergies Home Medications Medication Instructions Recorded Confirmed Type Metoprolol Succinate (ER) [Toprol 25 mg PO DAILY 12/26/20 12/26/20 History Xl] buPROPion HCL [buPROPion HCL SR] 150 mg PO BID 12/26/20 12/26/20 History Allergies Allergy/AdvReac Type Severity Reaction Status Date / Time Iodinated Contrast Media AdvReac Severe Vomiting Verified 12/27/20 11:51 Surgical - Exam Vital Signs Temp Pulse Resp BP Pulse Ox 97.8 F 91 22 158/91 99 12/26/20 00:15 12/26/20 00:15 12/26/20 00:15 12/26/20 00:15 12/26/20 00:15 CONSTITUTIONAL: Awake and alert, appears comfortable, cooperative, well- developed, well-nourished, no pain, no acute distress EYES: Pupils equal, round, reactive to light, normal ocular movement ENT: Moist mucous membranes without oral lesions present NECK: No masses, no bruits, trachea midline RESPIRATORY: Lungs sounds clear to auscultation bilaterally. Respirations even, nonlabored. Currently on 2 L nasal cannula with oxygen saturation 95%. Strong cough. No chest wall deformities. No clubbing or cyanosis present CARDIOVASCULAR: S1, S2 present. Regular rate and rhythm, sinus rhythm on telemetry. Palpable peripheral pulses bilaterally. No edema present. No calf pain or tenderness noted. No significant lower extremity varicosities noted. GASTROINTESTINAL: Abdomen soft, nontender, nondistended without masses or organomegaly noted. There is no rebound or guarding present. Active bowel sounds present 4 quadrants. GENITOURINARY: Deferred INTEGUMENTARY: Skin is warm and dry with evidence of good perfusion. NEUROLOGIC: Cranial nerves II through XII intact, normal coordination, no obvious motor or sensory deficits, speech is normal MUSKULOSKELETAL: Able to move all extremities, strength equal bilaterally, normal posture PSYCHIATRIC: Alert and oriented to person place and time, appropriate affect, intact judgment and insight Results - Labs 12/26/20 01:03 12/26/20 01:03 - Imaging Chest x-ray: report reviewed, image reviewed EKG: image reviewed Assessment and Plan Assessment: 1. Severe aortic insufficiency on transthoracic echocardiogram 2. Acute systolic heart failure, EF 30-35% on TTE with moderate global hypokinesis 3. Hypertension 4. Previous tobacco dependence 5. Questionable CHRIS Plan: The patient was seen and examined at the bedside. Chart/diagnostics were r [email or web address]. The case was discussed with Dr. Herman from cardiothoracic surgery. The usual perioperative course of open surgery was discussed with the patient, and all questions were answered. Consultation may be up that premature at this point as patient would need heart catheterization and transesophageal echocardiogram performed to further delineate disease process. The priority at this time should be recovery from acute heart failure which is being appropriately managed by Dr. Saez. We did discuss the case with Dr. Saez. If and when Dr. Saez feels the patient is appropriate for surgical intervention he may certainly follow up with us for further testing and surgical discussion. Thank you for this consult. Please call us with any further questions. Time with Patient: Greater than 30 <Kavita Herman - Last Filed: 12/27/20 12:21> Surgical - Exam Vital Signs Temp Pulse Resp BP Pulse Ox 97.8 F 91 22 158/91 99 12/26/20 00:15 12/26/20 00:15 12/26/20 00:15 12/26/20 00:15 12/26/20 00:15 Results - Labs 12/26/20 01:03 12/26/20 01:03 Assessment and Plan Plan: Patient seen and examined. CHF presentation probably due to significant AI from a bicuspid valve. No family Hx of Bicuspid and/or aneurysms. Ful opinion would have to await YOVANY, Cath, CT Chest to evaluate Asc. Aorta. Discussed with Dr Rodriguez and patient. He might be candidate for Aortic valve repair . KAVITA QUIROGA MD
--- NOTE | 2020-12-27 12:19 | CT ---
EXAMINATION TYPE: CT chest wo con DATE OF EXAM: 12/27/2020 COMPARISON: None HISTORY: Leaking aortic valve per patient. Assess thoracic aorta. CT DLP: [address] of the chest was performed with lung and mediastinal window settings submitted. The la ck of contrast limits evaluation of the vascular, mediastinal and parenchymal structures including th e upper abdomen. LUNGS: Moderate basilar atelectasis and/or infiltrates with pleural effusions seen. No CT evidence of interstitial lung disease. MEDIASTINUM/MARGARET: Ascending thoracic aortic aneurysm measures 4.5 cm in AP dimension. Aortic arch and descending thoracic aorta are of normal caliber. The heart is moderately enlarged. No evidence for m ediastinal mass. No lymph nodes greater than 1cm. UPPER ABDOMEN: Indeterminate peripheral hepatic lesion measuring less than 1 cm likely reflects a cys t. OTHER: No significant other abnormality. IMPRESSION: 1. Ascending thoracic aortic aneurysm. 2.Moderate basilar atelectasis and/or infiltrates with pleural effusions seen.
[2020-12-27] MEDS: HEPARIN SODIUM,PORCINE/PF 5,000 UNIT/0.5 ML SYRINGE SQ SCH ×2 (13:23→21:31)
[2020-12-27] MEDS ORDERED: ALPRAZolam 0.5 MG TAB PO PRN (13:28)
[2020-12-27] MEDS ORDERED: ALPRAZolam 0.25 MG TAB PO PRN (13:28)
--- NOTE | 2020-12-27 13:46 | P.PN ---
Subjective This is a pleasant 50-year-old male past medical history significant for hypertension. He does not follow with a customer care representative. We have been asked to see in consultation for shortness of breath. Patient resents the emergency department complaining that he had had worsening respiratory status going back approximately 2 weeks. He states his shortness of breath mainly affects him when he lies flat in bed or when he falls asleep. He does wake up in the middle night short of breath. He does find that he has to sleep in the reclining chair. He does notice occasional fluttering feelings in his chest. He denies tobacco use, alcohol use, or illicit drug use. He denies history of heart failure, [place], Diabetes, Stroke, or any cardiac disease. He denies family history of cardiac disease, or valve issues bicuspid and/or aneurysms. 12/27/19 2D echocardiogram revealed EF 30-35%, moderate global hypokinesis of the left ventricule, LA is moderately dilated, Functionally Bicuspid aortic valve, Severe aortic regurgitation,peak/mean gradient 15.43/8.68 mmHg, mild MR, mild TR, moderate pulmonary hypertension, RVSP 49mmHg, no enlargement of the aortic root. Discussed results and management options with patient and family at bedside. Patient was unaware that he had a bicuspid aortic valve. Patient was started on IV diuresis Lasix 20mg BID, lisinopril 5mg daily. 12/27/20: Patient seen and examined at bedside. Vital signs stable. No complaints at this time. Breathing has improved, feeling much better. Vital signs blood pressure 129/71, heart rate 69, afebrile, oxygen saturation is 95% on room air. Current being maintained on IV Lasix 20mg BID, metoprolol succinate 25mg daily, Lisinopril 5mg daily. Patient undergoing CT chest today. PHYSICAL EXAMINATION CONSTITUTIONAL: No apparent distress. HEENT: Head is normocephalic. Pupils are equal, round. Sclerae anicteric. Mucous membranes of the mouth are moist. + mild JVD. No carotid bruit. CHEST EXAMINATION: Lungs are clear to auscultation. No chest wall tenderness is noted on palpation or with deep breathing. HEART EXAMINATION: Regular rate and rhythm. S1, S2 heard. Possibly a mild murmur to the right sternal border. No gallops or rub. ABDOMEN: Soft, nontender. Positive bowel sounds. EXTREMITIES: 2+ peripheral pulses, no lower extremity edema and no calf tenderness. SKIN: intact NEUROLOGIC EXAMINATION: Patient is awake, alert and oriented x3. ASSESSMENT Shortness of breath Acute heart failure with reduced ejection fraction EF 30-35% Severe aortic valve insufficiency History of Hypertension PLAN -At this time we will plan for YOVANY and cardiac catheterization tomorrow with Dr. Saez. -I have discussed the risks, benefits and alternative therapies for the above- mentioned procedures and for both sedation/analgesia as well as necessary blood product administration, if indicated, as they pertain to this patient. The patient has indicated understanding and acceptance of the risks and procedures discussed. Questions have been answered appropriately and he is agreeable to move forward with the above-stated procedures -Cardiothoracic surgery has seen the patient, patient might eventually be a candidate for aortic valve repair and this has been discussed with the patient. -Continue IV Lasix 20mg BID, metoprolol succinate 25mg daily, Lisinopril 5mg daily Nurse Practitioner note has been reviewed, I agree with a documented findings and plan of care. Patient was seen and examined. Objective - Vital Signs Vital signs: Vital Signs Temp 97.9 F 12/27/20 07:00 Pulse 69 12/27/20 07:00 Resp 20 12/27/20 08:00 BP 129/71 12/27/20 07:00 Pulse Ox 95 12/27/20 07:00 Intake & Output 12/26/20 12/27/20 12/27/20 18:59 06:59 18:59 Weight 120.202 kg Other: Voiding Method Toilet # Voids 2 2 - Labs CBC & Chem 7: 12/26/20 01:03 12/26/20 01:03
[2020-12-27] MEDS: FAMOTIDINE 20 MG/2 ML VIAL IV SCH (21:31)
[2020-12-28] MEDS ORDERED: SODIUM CHLORIDE 0.9% 1,000 ML in EMPTY BAG 1 BAG IV ONE
[2020-12-28 06:10] LABS: Glucose,Whole Blood 100 mg/dL (75-99)
[2020-12-28] MEDS ORDERED: ATORVASTATIN 80 MG TAB PO STA (06:11)
[2020-12-28] MEDS: ASPIRIN 325 MG TAB PO SCH (06:17)
[2020-12-28] MEDS: METOPROLOL SUCCINATE (ER) 25 MG TAB.ER.24H PO SCH (06:17)
[2020-12-28] MEDS: buPROPion SR 150 MG TABLET.ER PO SCH ×2 (06:18→20:21)
[2020-12-28] MEDS: FAMOTIDINE 20 MG/2 ML VIAL IV SCH (06:18)
[2020-12-28] MEDS: lisinopriL 5 MG TAB PO SCH (06:18)
[2020-12-28] MEDS: NITROGLYCERIN OINT 1 INCH/GM PACKET TOPICAL SCH ×4 (06:19→20:27)
[2020-12-28] MEDS ORDERED: HEPARIN SODIUM,PORCINE 10,000 UNIT in SODIUM CHLORIDE 0.9% 1,000 ML IRRIGATION PRN (07:00)
[2020-12-28] MEDS ORDERED: HEPARIN SODIUM,PORCINE 2,500 UNIT in SODIUM CHLORIDE 0.9% 250 ML IRRIGATION PRN (07:00)
[2020-12-28 07:01] LABS: African American GFR (CKD) 89 (>60 ml/min/1.73 sqM); Anion Gap 5 mmol/L; Blood Urea Nitrogen 22 mg/dL (9-20); Calcium 8.8 mg/dL (8.4-10.2); Carbon Dioxide 28 mmol/L (22-30); Chloride 106 mmol/L (98-107); Glucose 105 mg/dL (74-99); Magnesium 2.1 mg/dL (1.6-2.3); Non-African American GFR(CKD) 77 (>60 ml/min/1.73 sqM); Potassium 3.8 mmol/L (3.5-5.1); Sodium 139 mmol/L (137-145)
[2020-12-28 07:17] LABS: Glucose,Whole Blood 102 mg/dL (75-99)
[2020-12-28] MEDS: FUROSEMIDE 10 MG/ML 2 ML VIAL IV SCH (07:37)
[2020-12-28] MEDS ORDERED: fentaNYL (PF) 50 MCG/ML 2 ML AMP ONE ×2 (09:54→11:34)
[2020-12-28] MEDS ORDERED: IV FLUID CONTINUATION 1,000 ML IV ONE (10:12)
[2020-12-28] MEDS: BENZOCAINE SPRAY 1 CAN MUCOUS MEM ONE ×2 (10:18→10:19)
[2020-12-28] MEDS: fentaNYL (PF) 50 MCG/ML 2 ML AMP IVP ONE ×2 (10:19→10:24)
[2020-12-28] MEDS ORDERED: MIDAZOLAM 2 MG/2 ML VIAL IVP ONE ×2 (10:19→10:27)
[2020-12-28] MEDS: MIDAZOLAM 2 MG/2 ML VIAL IVP ONE ×2 (10:21→10:24)
[2020-12-28] MEDS ORDERED: HEPARIN SODIUM 1,000 UN/ML (10ML VL) ONE (10:26)
[2020-12-28] MEDS ORDERED: VERAPAMIL 2.5 MG/ML 2 ML AMP ONE (10:26)
[2020-12-28] MEDS ORDERED: LIDOCAINE 1% INJ 10MG/ML (20 ML MDV) ONE ×2 (10:27→10:40)
[2020-12-28] MEDS ORDERED: PROPOFOL 10 MG/ML 20 ML VIAL IV ONE (10:40)
[2020-12-28] MEDS ORDERED: diphenhydrAMINE 50 MG/ML 1 ML VIAL ONE (10:57)
[2020-12-28] MEDS ORDERED: methylPREDNISolone SOD SUCCI 125 MG/2 ML VIAL ONE (10:57)
[2020-12-28] MEDS ORDERED: diphenhydrAMINE 50 MG/ML 1 ML VIAL IVP ONE (11:08)
[2020-12-28] MEDS ORDERED: methylPREDNISolone SOD SUCCI 125 MG/2 ML VIAL IVP ONE (11:09)
[2020-12-28] MEDS ORDERED: IV FLUID CONTINUATION 850 ML IV ONE (11:09)
[2020-12-28] MEDS ORDERED: LIDOCAINE 1% INJ 10MG/ML (20 ML MDV) SQ ONE (11:22)
[2020-12-28] MEDS ORDERED: FUROSEMIDE 10 MG/ML 4 ML VIAL ONE (11:32)
[2020-12-28] MEDS: VERAPAMIL SYRINGE (5 MG/10 ML) INTRAARTER ONE ×2 (11:33→11:47)
[2020-12-28] MEDS: FUROSEMIDE 10 MG/ML 4 ML VIAL IVP ONE ×2 (11:33→11:46)
[2020-12-28] MEDS ORDERED: HEPARIN SODIUM 1,000 UN/ML (10ML VL) IV ONE (11:35)
[2020-12-28] MEDS ORDERED: fentaNYL (PF) 50 MCG/ML 2 ML AMP IVP ONE (11:36)
[2020-12-28] MEDS ORDERED: IOPAMIDOL-370 125ML BTL INJ ONE (11:46)
[2020-12-28] MEDS ORDERED: RX INFO: IV CONTRAST WAS GIVEN 1 EACH MISC MISCELLANE PRN (12:05)
[2020-12-28] MEDS ORDERED: SODIUM CHLORIDE 0.9% 1,000 ML IV SCH (12:15)
[2020-12-28] MEDS: HEPARIN SODIUM,PORCINE/PF 5,000 UNIT/0.5 ML SYRINGE SQ SCH ×2 (12:33→20:21)
--- NOTE | 2020-12-28 13:05 | ECHOT ---
TRANSESOPHAGEAL ECHOCARDIOGRAM DATE OF SERVICE: December 28, 2020 PERFORMING PHYSICIAN: Jonny Saez MD. PROCEDURE PERFORMED: Transesophageal echocardiogram. INDICATION: Aortic insufficiency. COMPLICATION: None. LEVEL OF SEDATION: Moderate with sedation length of 15 minutes. PROCEDURE DESCRIPTION: After obtaining an informed consent, the patient was brought to the transesophageal echocardiogram suite. A pulse oximetry and heart rate monitors were attached to the patient. Subsequently after giving the patient 5 mg of Versed, the patient was not sedated and we had to call anesthesia to do the procedure under anesthesia. After the patient was sedated using propofol, the transesophageal echocardiogram probe was advanced through the bite guard to the mid esophageal where 2D echocardiogram images as well as color Doppler images of various cardiac structures were obtained. Particular attention was made to the aortic valve. Please note that the procedure was performed using a 2D echocardiogram, pulse-wave, continuous-wave Doppler, as well as color Doppler. FINDINGS: The left ventricle appeared to be dilated. The left ventricular systolic function is impaired with EF around 30%. The right ventricle appeared to be of normal size and function. The left atrium appeared to be dilated. The left atrial appendage was not well visualized. The mitral valve showed evidence of moderate mitral regurgitation. The aortic valve appeared to be bicuspid valve with fusion of the right and non coronary cusp as well as evidence of severe aortic regurgitation with evidence of holo reversal flow in the descending aorta. Also, there was prolapsing of the non coronary cusp of the aortic valve. The tricuspid valve and pulmonic valve appeared to be within normal limits. CONCLUSION: 1. Dilated left ventricle with impaired function and ejection fraction between 30% to 35% with global hypokinesia. 2. Normal right ventricular dimension and systolic function. 3. Dilated left atrium. 4. Intact interatrial septum. 5. Bicuspid aortic valve with fusion of the right and non coronary cusp as well as evidence of prolapsing of non coronary cusp and evidence of severe aortic regurgitation by vena contracta as well as evidence of holodiastolic reversal flow in the descending aorta. 6. The mitral valve has evidence of moderate mitral regurgitation. 7. Normal tricuspid valve and pulmonic valve. 8. Mildly dilated aortic root. MMODL / IJN: [id number] /
--- NOTE | 2020-12-28 18:15 | CC ---
CARDIAC CATHETERIZATION REPORT DATE OF SERVICE: 12/26/2020 PERFORMING PHYSICIAN: Jonny Saez M.D. PROCEDURES PERFORMED: 1. Right heart catheterization. 2. Left heart catheterization. 3. Selective right and left coronary angiogram. 4. Aortic root angiogram. INDICATION: This is a 50-year-old gentleman who was admitted to the hospital with shortness of breath and was diagnosed with heart failure. An echo revealed impaired LV function with evidence of severe aortic regurgitation. He underwent transesophageal echocardiogram which confirmed severity of the aortic regurgitation and he was brought today to undergo heart catheterization. APPROACH: Right common femoral vein and right radial artery. COMPLICATIONS: None. LEVEL OF SEDATION: Moderate, with sedation length of 25 minutes. PROCEDURE DESCRIPTION: After obtaining informed consent, the patient was brought to the cardiac laborer demolition. The right common femoral vein was cannulated using micropuncture technique. The micropuncture wire passed easily. Then I placed an 8-Malaysian sheath in the right common femoral vein. After that I did right heart catheterization using 6-Malaysian [place] catheter. Subsequently I did access the right radial artery using micropuncture technique. The micropuncture wire passed easily. Then I did place a 6-Malaysian sheath in the right radial artery and subsequently I gave the patient 2 mg of verapamil IA and 8000 units of heparin IV. After that I did left heart catheterization using the JR4 catheter which crossed the aortic valve. Then I did selective right and left coronary angiogram with JR4 and JL4 catheters. After that I did aortic root angiogram using a 6-Malaysian pigtail catheter. The procedure was completed without any complication. HEMODYNAMICS: 1. The pulmonary capillary wedge pressure was 24 mmHg with a V-wave up to about 30 mmHg. 2. PA pressures were as follows: Systolic of 30 and diastolic of 18 and mean of 23 mmHg. 3. RV pressures were as follows: Systolic of 27 and end-diastolic of 9 mmHg. 4. RA pressure was 7 mmHg. 5. LVEDP was 26 mmHg. SELECTIVE CORONARY ANGIOGRAM: 1. The RCA is a large-caliber vessel. It is a dominant vessel and appeared to be angiographically normal. It distally bifurcates into PDA and PLV branches and both appeared to be angiographically normal. 2. The left main is angiographically normal. It bifurcates into left circumflex and left anterior descending artery. 3. The left circumflex is a large-caliber vessel. It is a nondominant vessel. The left circumflex is angiographically normal and gives rise to first and second obtuse marginal branches. Both appeared to be angiographically normal. 4. The left anterior descending artery is a large-caliber vessel. The left anterior descending artery is angiographically normal. The LAD gives rise to a large diagonal branch in the proximal to mid portion and that appeared to be angiographically normal. AORTIC ROOT ANGIOGRAM: The aortic root angiogram was performed in the YI projection and using a power injection. There was 4+ aortic insufficiency seen. CONCLUSION: 1. Normal coronary angiogram. 2. Elevated filling pressures. 3. Mildly dilated aortic root. 4. Four plus aortic insufficiency. POST-PROCEDURE MANAGEMENT: The patient was already seen by cardiothoracic surgery team and the plan to pursue with aortic valve repair/replacement is to be performed either during this admission or the patient will be discharged home and come back to have the surgery done. MMODL / IJN: [id number] /
[2020-12-28] MEDS: FAMOTIDINE 20 MG TAB PO SCH (20:21)
[2020-12-28] MEDS: FUROSEMIDE 10 MG/ML 4 ML VIAL IV SCH (20:21)
[2020-12-29 07:39] LABS: African American GFR (CKD) 82 (>60 ml/min/1.73 sqM); Anion Gap 7 mmol/L; Blood Urea Nitrogen 27 mg/dL (9-20); Calcium 9.9 mg/dL (8.4-10.2); Carbon Dioxide 28 mmol/L (22-30); Chloride 104 mmol/L (98-107); Glucose 123 mg/dL (74-99); Magnesium 2.1 mg/dL (1.6-2.3); Non-African American GFR(CKD) 71 (>60 ml/min/1.73 sqM); Sodium 139 mmol/L (137-145)
[2020-12-29 07:58] LABS: Potassium 4.1 mmol/L (3.5-5.1)
[2020-12-29] MEDS: FUROSEMIDE 10 MG/ML 4 ML VIAL IV SCH (08:23)
[2020-12-29] MEDS: ASPIRIN 325 MG TAB PO SCH (08:23)
[2020-12-29] MEDS: buPROPion SR 150 MG TABLET.ER PO SCH ×2 (08:24→20:15)
[2020-12-29] MEDS: lisinopriL 5 MG TAB PO SCH (08:24)
[2020-12-29] MEDS: HEPARIN SODIUM,PORCINE/PF 5,000 UNIT/0.5 ML SYRINGE SQ SCH ×2 (08:24→20:15)
[2020-12-29] MEDS: FAMOTIDINE 20 MG TAB PO SCH ×2 (08:24→20:15)
[2020-12-29] MEDS: METOPROLOL SUCCINATE (ER) 25 MG TAB.ER.24H PO SCH (08:24)
--- NOTE | 2020-12-29 08:50 | P.PN ---
Subjective Progress Note Date: 12/29/20 Principal diagnosis: Severe aortic insufficiency with bicuspid aortic valve, acute systolic heart failure with EF 30% on YOVANY. History of hypertension, previous tobacco dependence, questionable CHRIS The patient is currently sitting up in bed in no acute distress. Denies any chest pain or shortness of breath, states he is feeling better every day. Patient had a heart catheterization and YOVANY yesterday, heart catheterization revealed normal coronary arteries. YOVANY demonstrated bicuspid aortic valve with severe aortic insufficiency and impaired left ventricular function with EF 30- 35%. He was seen by Dr. Herman, recommendations were made for aortic valve replacement versus repair once recovered from acute heart failure. All questions were answered, no new concerns. Objective - Vital Signs Vital signs: Vital Signs Temp 98.0 F 12/29/20 07:50 Pulse 77 12/29/20 07:50 Resp 16 12/29/20 07:50 BP 142/66 12/29/20 07:50 Pulse Ox 95 12/29/20 07:50 Intake & Output 12/28/20 12/29/20 12/29/20 18:59 06:59 18:59 Intake Total 250 Balance 250 Intake: IV 250 Other: Voiding Method Urinal Urinal # Voids 2 2 - Exam CONSTITUTIONAL: Appears comfortable, cooperative, no acute distress RESPIRATORY: Lungs sounds diminished bilaterally. Respirations even, nonlabored. Currently on room air with oxygen saturation 95%. CARDIOVASCULAR: S1, S2 present. Regular rate and rhythm, sinus rhythm on telemetry with heart rate in the 80s. Palpable peripheral pulses bilaterally. No edema present. No calf pain or tenderness noted. GASTROINTESTINAL: Abdomen soft, nontender, nondistended. Active bowel sounds present 4 quadrants. Tolerating diet. GENITOURINARY: Continues to void INTEGUMENTARY: Skin is warm and dry with evidence of good perfusion. NEUROLOGIC: Cranial nerves II through XII intact MUSKULOSKELETAL: Able to move all extremities, strength equal bilaterally, gait normal PSYCHIATRIC: Alert and oriented to person place and time, appropriate affect, intact judgment and insight - Allied health notes Allied health notes reviewed: nursing - Labs CBC & Chem 7: 12/26/20 01:03 12/29/20 06:38 Labs: Abnormal Lab Results - Last 24 Hours (Table) 12/29/20 Range/Units 06:38 BUN 27 H (9-20) mg/dL Glucose 123 H (74-99) mg/dL Assessment and Plan Assessment: 1. Severe aortic insufficiency with bicuspid aortic valve 2. Acute systolic heart failure, EF 30-35% on YOVANY with moderate global hypokinesis 3. Hypertension 4. Previous tobacco dependence 5. Questionable CHRIS Plan: 1. Continue aspirin, beta ben, SURESH inhibitor, diuresis 2. Heart failure management per Dr. Saez 3. If patient is still in the hospital on Thursday and kidney function is normal we will schedule patient for CTA of the chest to further evaluate aortic root 4. Once Dr. Saez feels patient's heart failure has been optimally managed we will schedule patient for elective aortic valve repair versus replacement surgery Time with Patient: Greater than 30
--- NOTE | 2020-12-29 10:09 | P.PN ---
Subjective This is a pleasant 50 years old male with past medical history of hypertension, presents because of difficulty breathing for about one week. Has been evaluated by gluing machine adjuster, found to have low ejection fraction about 30-35% secondary to severe aortic regurgitation and he was started on Lasix IV 20 mg twice daily. His chest x-ray showed mild pulmonary edema but d-dimer negative. He was started on aspirin 325 mg as well as subcutaneous heparin with the plan for him to go for a YOVANY and cardiac angiogram Patient is lying in bed with no significant dyspnea. No chest pain or coughing. No abdominal pain. No nausea vomiting. Objective - Vital Signs Vital signs: Vital Signs Temp 97.9 F 12/27/20 07:00 Pulse 69 12/27/20 07:00 Resp 20 12/27/20 08:00 BP 129/71 12/27/20 07:00 Pulse Ox 95 12/27/20 07:00 Intake & Output 12/26/20 12/27/20 12/27/20 18:59 06:59 18:59 Intake Total 240 Balance 240 Weight 120.202 kg Intake: Oral 240 Other: Voiding Method Toilet # Voids 2 2 - Exam GENERAL: The patient is alert and oriented x3, not in any acute distress. Well developed, well nourished. HEENT: Pupils are round and equally reacting to light. EOMI. No scleral icterus. No conjunctival pallor. Normocephalic, atraumatic. No pharyngeal erythema. No thyromegaly. CARDIOVASCULAR: S1 and S2 present. No murmurs, rubs, or gallops. PULMONARY: Chest is clear to auscultation, no wheezing or crackles. ABDOMEN: Soft, nontender, nondistended, normoactive bowel sounds. No palpable organomegaly. MUSCULOSKELETAL: No joint swelling or deformity. EXTREMITIES: No cyanosis, clubbing, or pedal edema. NEUROLOGICAL: Gross neurological examination did not reveal any focal deficits. SKIN: No rashes. no petechiae. - Labs CBC & Chem 7: 12/26/20 01:03 12/29/20 06:38 Assessment and Plan Assessment: New-onset cardiomyopathy with ejection fraction of 30-35% Suspected to severe aortic regurgitation Mild pulmonary edema and moderate pulmonary hypertension secondary to above Essential hypertension Plan: This is a pleasant 50 years old male who presents with CHF and arthritic regurgitation. Cardiology on the case, continue with IV Lasix. Plan for coronary angiogram and YOVANY tomorrow Labs and medication were reviewed.. Continue same treatment. Continue with symptomatic treatment. Resume home medication. Monitor lytes and vitals. DVT and GI prophylaxis. Further recommendations as per clinical course of the patient DVT prophylaxis: Subcutaneous heparin GI Prophylaxis: Pepcid
--- NOTE | 2020-12-29 10:09 | P.PN ---
Subjective This is a pleasant 50 years old male with past medical history of hypertension, presents because of difficulty breathing for about one week. Has been evaluated by surgical coordinator, found to have low ejection fraction about 30-35% secondary to severe aortic regurgitation and he was started on Lasix IV 20 mg twice daily. His chest x-ray showed mild pulmonary edema but d-dimer negative. He was started on aspirin 325 mg as well as subcutaneous heparin with the plan for him to go for a YOVANY and cardiac angiogram Patient is lying in bed with no significant dyspnea. No chest pain or coughing. No abdominal pain. No nausea vomiting. 12/28/2020 Patient underwent cardiac cath today show normal coronary angiogram. Mild YOVANY showed bicuspid aortic valve with severe aortic regurgitation. Ejection fraction was also lost 30-35%. Postprocedure patient was lying in bed comfortable, family at bedside. Patient was a little drowsy from anesthesia but he is fully awake and oriented, he makes sense in his answers and follow commands appropriately. No specific complaints. No chest pain or dyspnea or abdominal or urinary complaints. No fever He is hemodynamically stable Cardiothoracic surgery has been consulted. Patient remains on IV Lasix Objective - Vital Signs Vital signs: Vital Signs Temp 97.9 F 12/28/20 07:57 Pulse 80 12/28/20 10:39 Resp 16 12/28/20 10:39 BP 139/56 12/28/20 10:39 Pulse Ox 96 12/28/20 10:39 Intake & Output 12/27/20 12/28/20 12/28/20 18:59 06:59 18:59 Intake Total 240 50 Balance 240 50 Intake: IV 50 Oral 240 Other: Voiding Method Toilet Toilet # Voids 2 3 - Exam GENERAL: The patient is alert and oriented x3, not in any acute distress. Well developed, well nourished. HEENT: Pupils are round and equally reacting to light. EOMI. No scleral icterus. No conjunctival pallor. Normocephalic, atraumatic. No pharyngeal erythema. No thyromegaly. CARDIOVASCULAR: S1 and S2 present. No murmurs, rubs, or gallops. PULMONARY: Chest is clear to auscultation, no wheezing or crackles. ABDOMEN: Soft, nontender, nondistended, normoactive bowel sounds. No palpable organomegaly. MUSCULOSKELETAL: No joint swelling or deformity. EXTREMITIES: No cyanosis, clubbing, or pedal edema. NEUROLOGICAL: Gross neurological examination did not reveal any focal deficits. SKIN: No rashes. no petechiae. - Labs CBC & Chem 7: 12/26/20 01:03 12/29/20 06:38 Labs: Abnormal Lab Results - Last 24 Hours (Table) 12/28/20 12/28/20 12/28/20 Range/Units 06:09 06:18 07:15 BUN 22 H (9-20) mg/dL Glucose 105 H (74-99) mg/dL POC Glucose (mg/dL) 100 H 102 H (75-99) mg/dL Assessment and Plan Assessment: New-onset systolic cardiomyopathy with ejection fraction of 30-35% Suspected to severe aortic regurgitation Mild pulmonary edema and moderate pulmonary hypertension secondary to above Essential hypertension Plan: This is a pleasant 50 years old male who presents with CHF and arthritic regurgitation. Cardiology on the case, continue with IV Lasix. Cardiothoracic surgery team consulted for severe aortic regurgitation Labs and medication were reviewed.. Continue same treatment. Continue with sy mptomatic treatment. Resume home medication. Monitor lytes and vitals. DVT and GI prophylaxis. Further recommendations as per clinical course of the patient DVT prophylaxis: Subcutaneous heparin GI Prophylaxis: Pepcid
--- NOTE | 2020-12-29 13:18 | P.CRDCN ---
History of Present Illness History of present illness: This is a pleasant 50-year-old male past medical history significant for hypertension. He does not follow with a covered button maker. We have been asked to see in consultation for shortness of breath. Patient resents the emergency department complaining that he had had worsening respiratory status going back approximately 2 weeks. He states his shortness of breath mainly affects him when he lies flat in bed or when he falls asleep. He does wake up in the middle night short of breath. He does find that he has to sleep in the reclining chair. He does notice occasional fluttering feelings in his chest. He denies tobacco use, alcohol use, or illicit drug use. He denies history of heart failure, MO, Diabetes, Stroke, or any cardiac disease. He denies family history of cardiac disease, or valve issues bicuspid and/or aneurysms. 12/27/19 2D echocardiogram revealed EF 30-35%, moderate global hypokinesis of the left ventricule, LA is moderately dilated, Functionally Bicuspid aortic valve, Severe aortic regurgitation,peak/mean gradient 15.43/8.68 mmHg, mild MR, mild TR, moderate pulmonary hypertension, RVSP 49mmHg, no enlargement of the aortic root. Discussed results and management options with patient and family at bedside. Patient was unaware that he had a bicuspid aortic valve. Patient was started on IV diuresis Lasix 20mg BID, lisinopril 5mg daily. 12/27/20: Patient seen and examined at bedside. Vital signs stable. No complaints at this time. Breathing has improved, feeling much better. Vital signs blood pressure 129/71, heart rate 69, afebrile, oxygen saturation is 95% on room air. Current being maintained on IV Lasix 20mg BID, metoprolol succinate 25mg daily, Lisinopril 5mg daily. Patient undergoing CT chest today. 12/29 Patient seen and examined. Patient underwent left and right heart catheterization yesterday which showed normal coronary arteries, elevated EDP however not surprising given aortic insufficiency and relatively normal right atrial pressure. He is currently lying flat in bed and denies any shortness of breath currently. He denies any chest pain or pressure. He admits his lower extremity edema has dramatically improved. PHYSICAL EXAMINATION CONSTITUTIONAL: No apparent distress. HEENT: Head is normocephalic. Pupils are equal, round. Sclerae anicteric. Mucous membranes of the mouth are moist. + mild JVD. No carotid bruit. CHEST EXAMINATION: Lungs are clear to auscultation. No chest wall tenderness is noted on palpation or with deep breathing. HEART EXAMINATION: Regular rate and rhythm. S1, S2 heard. Possibly a mild murmur to the right sternal border. No gallops or rub. ABDOMEN: Soft, nontender. Positive bowel sounds. EXTREMITIES: 2+ peripheral pulses, no lower extremity edema and no calf tenderness. SKIN: intact NEUROLOGIC EXAMINATION: Patient is awake, alert and oriented x3. ASSESSMENT Acute systolic heart failure with reduced ejection fraction EF 30-35% Severe aortic valve insufficiency Possible aortic root dilation noted on heart catheterization History of Hypertension PLAN Patient appears euvolemic. He is on good heart failure regimen with SURESH inhibitor and beta ben and vital signs, blood pressure well controlled. Left heart catheterization showed elevated LVEDP however not surprising given severe aortic insufficiency. He is currently lying flat on his back and appears optimized from his heart failure. Discussed with cardiothoracic surgery without any immediate plans for surgery. Therefore would recommend discharge with outpatient follow-up with Dr. Saez in 1 week and with cardiothoracic surgery. Discharge home on current heart failure regimen as well as oral Lasix 40 mg daily. Past Medical History Past Medical History: Hypertension Additional Past Medical History / Comment(s): kidney stones; possible CHRIS-pa edward was seen by pulmonology in 03/2019 but didn't follow up with testing for CHRIS History of Any Multi-Drug Resistant Organisms: None Reported Past Surgical History: Appendectomy Past Anesthesia/Blood Transfusion Reactions: No Reported Reaction Past Psychological History: Depression Smoking Status: Former smoker Past Alcohol Use History: Rare Past Drug Use History: None Reported - Past Family History Mother Family Medical History: Cancer Additional Family Medical History / Comment(s): still alive at 78 y/o Father Family Medical History: CVA/TIA Additional Family Medical History / Comment(s): at 86 y/o Medications and Allergies Home Medications Medication Instructions Recorded Confirmed Type Metoprolol Succinate (ER) [Toprol 25 mg PO DAILY 12/26/20 12/26/20 History Xl] buPROPion HCL [buPROPion HCL SR] 150 mg PO BID 12/26/20 12/26/20 History Allergies Allergy/AdvReac Type Severity Reaction Status Date / Time Iodinated Contrast Media AdvReac Severe Vomiting Verified 12/27/20 11:51 Physical Exam Vitals: Vital Signs Temp Pulse Pulse Resp BP Pulse Ox 12/29/20 08:00 77 75 16 12/29/20 07:50 98.0 F 77 16 142/66 95 12/29/20 02:20 98.1 F 71 16 127/50 95 12/29/20 02:17 82 75 18 12/28/20 20:21 82 75 18 12/28/20 19:17 98.4 F 82 18 139/67 94 L 12/28/20 16:05 75 122/72 12/28/20 15:05 71 128/70 12/28/20 14:05 70 14 125/71 98 12/28/20 13:35 76 14 134/82 98 Intake and Output 12/28/20 12/29/20 12/29/20 22:59 06:59 14:59 Intake Total 240 Balance 240 Intake: Oral 240 Other: Voiding Method Urinal Urinal Urinal # Voids 1 2 Results 12/26/20 01:03 12/29/20 06:38 Comprehensive Metabolic Panel 12/29/20 Range/Units 06:38 Sodium 139 (137-145) mmol/L Potassium 4.1 (3.5-5.1) mmol/L Chloride 104 (98-107) mmol/L Carbon Dioxide 28 (22-30) mmol/L BUN 27 H (9-20) mg/dL Creatinine 1.20 (0.66-1.25) mg/dL Glucose 123 H (74-99) mg/dL Calcium 9.9 (8.4-10.2) mg/dL Current Medications Generic Name Dose Route Start Last Admin Trade Name Freq PRN Reason Stop Dose Admin Acetaminophen 650 mg 12/26/20 16:06 Acetaminophen Tab 325 Mg Tab PO Q4HR PRN Fever and/ or Pain Alprazolam 0.25 mg 12/27/20 13:28 Alprazolam 0.25 Mg Tab PO Q6HR PRN Mild Anxiety Alprazolam 0.5 mg 12/27/20 13:28 Alprazolam 0.5 Mg Tab PO Q6HR PRN Moderate Anxiety Aspirin 325 mg 12/27/20 02:38 12/29/20 08:23 Aspirin 325 Mg Tab PO 325 mg DAILY SWATI Administration Bupropion HCl 150 mg 12/26/20 09:30 12/29/20 08:24 Bupropion Sr 150 Mg Tablet.Er PO 150 mg BID SWATI Administration Famotidine 20 mg 12/28/20 21:00 12/29/20 08:24 Famotidine 20 Mg Tab PO 20 mg Q12HR SWATI Administration Furosemide 40 mg 12/28/20 21:00 12/29/20 08:23 Furosemide 10 Mg/Ml 4 Ml Vial IV 40 mg Q12HR SWATI Administration Heparin Sodium (Porcine) 5,000 unit 12/27/20 10:30 12/29/20 08:24 Heparin Sodium,Porcine/Pf 5,000 Unit/0.5 Ml Syringe SQ 5,000 unit Q12HR SWATI Administration Lisinopril 5 mg 12/27/20 09:00 12/29/20 08:24 Lisinopril 5 Mg Tab PO 5 mg DAILY SWATI Administration Metoprolol Succinate 25 mg 12/26/20 09:30 12/29/20 08:24 Metoprolol Succinate (Er) 25 Mg Tab.Er.24h PO 25 mg DAILY SWATI Administration Miscellaneous Information 1 each 12/28/20 12:05 Rx Info: Iv Contrast Was Given 1 Each Misc MISCELLANE 12/30/20 12:05 DAILY PRN Per Protocol Sodium Chloride 10 ml 12/26/20 09:00 12/29/20 08:24 Sodium Chloride 0.9% Flush 10 Ml Syringe IV 10 ml BID SWATI Administration Intake and Output 12/28/20 12/29/20 12/29/20 22:59 06:59 14:59 Intake Total 240 Balance 240 Intake: Oral 240 Other: Voiding Method Urinal Urinal Urinal # Voids 1 2 12/26/20 01:03 12/29/20 06:38
[2020-12-30] MEDS: FAMOTIDINE 20 MG TAB PO SCH ×2 (07:55→20:42)
[2020-12-30] MEDS: METOPROLOL SUCCINATE (ER) 25 MG TAB.ER.24H PO SCH (07:55)
[2020-12-30] MEDS: ASPIRIN 325 MG TAB PO SCH (07:55)
[2020-12-30] MEDS: FUROSEMIDE 40 MG TAB PO SCH (07:56)
[2020-12-30] MEDS: HEPARIN SODIUM,PORCINE/PF 5,000 UNIT/0.5 ML SYRINGE SQ SCH ×2 (07:56→20:42)
[2020-12-30] MEDS: buPROPion SR 150 MG TABLET.ER PO SCH ×2 (07:56→20:42)
[2020-12-30] MEDS: lisinopriL 5 MG TAB PO SCH (07:56)
[2020-12-30 10:10] LABS: Basophils # (A) 0.09 X 10*3/uL (0.00-0.10); Basophils % (A) 0.8 %; Eosinophils # (A) 0.06 X 10*3/uL (0.04-0.35); Eosinophils % (A) 0.6 %; HCT 45.8 % (39.6-50.0); HGB 15.3 g/dL (13.0-17.0); MCH 28.5 pg (27.0-32.0); MCHC 33.4 g/dL (32.0-37.0); MCV 85.3 fL (80.0-97.0); Mean Platelet Volume 10.8 fL (9.5-12.2); Monocytes # (A) 0.88 X 10*3/uL (0.20-1.00); Monocytes % (A) 8.3 %; Neutrophils % (A) 57.5 %; Platelet Count 201 X 10*3/uL (140-440); RBC 5.37 X 10*6/uL (4.40-5.60); RDW 13.1 % (11.5-14.5); WBC 10.62 X 10*3/uL (4.50-10.00)
[2020-12-30 11:01] LABS: Cholesterol 181 mg/dL (<200); HDL Cholesterol 43 mg/dL (40-60); LDL Cholesterol,Calculated 83 mg/dL (0-99); Triglycerides 277 mg/dL (<150)
[2020-12-30 11:28] LABS: African American GFR (CKD) 90.9 (60.0-200.0); Anion Gap 9.4 mmol/L (4.00-12.00); BUN/Creat Ratio 26.36 Ratio (12.00-20.00); Calcium 9.5 mg/dL (8.7-10.3); Carbon Dioxide 21.6 mmol/L (21.6-31.8); Non-African American GFR(CKD) 78.4 (60.0-200.0); Potassium 4.2 mmol/L (3.5-5.5)
--- NOTE | 2020-12-30 12:01 | P.PN ---
Subjective This is a pleasant 50-year-old male past medical history significant for hypertension. 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 We have been asked to see in consultation for shortness of breath. Patient resents the emergency department complaining that he had had worsening respiratory status going back approximately 2 weeks. He states his shortness of breath mainly affects him when he lies flat in bed or when he falls asleep. He does wake up in the middle night short of breath. He does find that he has to sleep in the reclining chair. He does notice occasional fluttering feelings in his chest. He denies tobacco use, alcohol use, or illicit drug use. He denies history of heart failure, [place], Diabetes, Stroke, or any cardiac disease. He denies family history of cardiac disease, or valve issues bicuspid and/or aneurysms. 12/27/19 2D echocardiogram revealed EF 30-35%, moderate global hypokinesis of the left ventricule, LA is moderately dilated, Functionally Bicuspid aortic valve, Severe aortic regurgitation,peak/mean gradient 15.43/8.68 mmHg, mild MR, mild TR, moderate pulmonary hypertension, RVSP 49mmHg, no enlargement of the aortic root. Discussed results and management options with patient and family at bedside. Patient was unaware that he had a bicuspid aortic valve. Patient was started on IV diuresis Lasix 20mg BID, lisinopril 5mg daily. 12/27/20: Patient seen and examined at bedside. Vital signs stable. No complaints at this time. Breathing has improved, feeling much better. Vital signs blood pressure 12 9/71, heart rate 69, afebrile, oxygen saturation is 95% on room air. Current being maintained on IV Lasix 20mg BID, metoprolol succinate 25mg daily, Lisinopril 5mg daily. Patient undergoing CT chest today. 12/29 Patient seen and examined. Patient underwent left and right heart catheterization yesterday which showed normal coronary arteries, elevated EDP however not surprising given aortic insufficiency and relatively normal right atrial pressure. He is currently lying flat in bed and denies any shortness of breath currently. He denies any chest pain or pressure. He admits his lower extremity edema has dramatically improved. 12/30 Patient seen and examined. Patient had looked better yesterday and therefore discussed possibly going home with outpatient workup however unfortunately he had worsening shortness breath and believes that he missed a Lasix dose last night and this is what caused that. He received Lasix this morning and is feeling better. Denies any chest pain or pressure. PHYSICAL EXAMINATION CONSTITUTIONAL: No apparent distress. HEENT: Head is normocephalic. Pupils are equal, round. Sclerae anicteric. Mucous membranes of the mouth are moist. + mild JVD. No carotid bruit. CHEST EXAMINATION: Lungs are clear to auscultation. No chest wall tenderness is noted on palpation or with deep breathing. HEART EXAMINATION: Regular rate and rhythm. S1, S2 heard. Possibly a mild murmur to the right sternal border. No gallops or rub. ABDOMEN: Soft, nontender. Positive bowel sounds. EXTREMITIES: 2+ peripheral pulses, no lower extremity edema and no calf tenderness. SKIN: intact NEUROLOGIC EXAMINATION: Patient is awake, alert and oriented x3. ASSESSMENT Acute systolic heart failure with reduced ejection fraction EF 30-35% Severe aortic valve insufficiency Possible aortic root dilation noted on heart catheterization History of Hypertension PLAN Worsened respiratory status over last 24 hours and continue with diuresis. Continue to monitor if patient stable for discharge versus inpatient aortic valve repair. Continue optimize heart failure regimen as able. Increase lisinopril to 10 mg daily. Check chest x-ray. Objective - Vital Signs Vital signs: Vital Signs Temp 99.3 F 12/30/20 08:27 Pulse 74 12/30/20 08:27 Resp 18 12/30/20 08:27 BP 142/72 12/30/20 08:27 Pulse Ox 98 12/30/20 08:43 Intake & Output 12/29/20 12/30/20 12/30/20 18:59 06:59 18:59 Intake Total 240 240 Balance 240 240 Intake: Oral 240 240 Other: Voiding Method Urinal Urinal Urinal # Voids 2 2 2 - Labs CBC & Chem 7: 12/30/20 05:51 12/30/20 05:51 Labs: Abnormal Lab Results - Last 24 Hours (Table) 12/29/20 12/30/20 12/30/20 Range/Units 06:38 05:51 05:51 WBC 10.62 H (4.50-10.00) X 10*3/uL Immature Gran # 0.09 H (0.00-0.04) X 10*3/uL BUN 29.0 H (9.0-27.0) mg/dL BUN/Creatinine Ratio 26.36 H (12.00-20.00) Ratio Triglycerides 277 H (<150) mg/dL
[2020-12-30 12:41] LABS: Magnesium 2.1 mg/dL (1.5-2.4)
--- NOTE | 2020-12-30 12:50 | XR ---
EXAMINATION TYPE: XR chest 2V DATE OF EXAM: 12/30/2020 COMPARISON: Chest x-ray 12/26/2020, CT 12/27/2020 HISTORY: Shortness of breath TECHNIQUE: Frontal and lateral views of the chest are obtained. FINDINGS: There is improvement in aeration, interstitium compared to prior exam. Cardiac mediastinal silhouette shows a similar appearance. No evident pneumothorax or pleural effusion. There are overly ing leads. IMPRESSION: There is improvement in aeration, volume status as compared to prior exam, no evident pl eural effusion
[2020-12-30 14:44] LABS: Hemoglobin A1C 5.2 % (4.0-6.0)
--- NOTE | 2020-12-30 16:29 | P.PN ---
Subjective Progress Note Date: 12/29/20 Principal diagnosis: New-onset systolic cardiomyopathy with ejection fraction of 30-35% Mr. Aguirre is a 50-year-old male with past medical history of hypertension coming in with a chief Complaint of difficulty in breathing. He was evaluated by cardiology and was found to have an ejection fraction of 30-35% secondary to severe aortic regurgitation. Patient has chest x-ray done showing mild pulmonary edema. As a part of workup for his aortic regurgitation he had YOVANY and cardiac catheterization done. On 12/29/2020- patient was seen and examined at the bedside. He is sitting comfortably in the bed appears to be no acute distress. Patient states that his Lasix has been helping him and he feels much light in terms of his lower extremity swelling. Patient denies having any chest pain or palpations. No cough or difficulty in breathing. No abdominal pain nausea vomiting or diarrhea. No dysuria or hematuria. On reviewing the vitals temperature 98.1, present on, especially to see pressure 127/50, saturating 95% on room air. Labs from this morning showing sodium 139, potassium 4.9, chloride 104, bicarb 28, BNP 27, creatinine 1.0. TSH 1.25 LDL 83. Patient's medications have been reviewed. Objective - Vital Signs Vital signs: Vital Signs Temp 98.0 F 12/29/20 07:50 Pulse 77 12/29/20 08:00 Resp 16 12/29/20 08:00 BP 142/66 12/29/20 07:50 Pulse Ox 95 12/29/20 07:50 Intake & Output 12/28/20 12/29/20 12/29/20 18:59 06:59 18:59 Intake Total 250 240 Balance 250 240 Intake: IV 250 Oral 240 Other: Voiding Method Urinal Urinal Urinal # Voids 2 2 - Exam GENERAL: The patient is alert and oriented x3, not in any acute distress. Well developed, well nourished. HEENT: Pupils are round and equally reacting to light. EOMI. No scleral icterus. No conjunctival pallor. CARDIOVASCULAR: S1 and S2 present. Positive for diastolic murmur PULMONARY: Chest is clear to auscultation, no wheezing or crackles. ABDOMEN: Soft, nontender, nondistended, normoactive bowel sounds. No palpable organomegaly. MUSCULOSKELETAL: No joint swelling or deformity. EXTREMITIES: No cyanosis, clubbing, or pedal edema. NEUROLOGICAL: Gross neurological examination did not reveal any focal deficits. SKIN: No rashes. no petechiae. - Labs CBC & Chem 7: 12/30/20 05:51 12/30/20 05:51 Labs: Abnormal Lab Results - Last 24 Hours (Table) 12/29/20 Range/Units 06:38 BUN 27 H (9-20) mg/dL Glucose 123 H (74-99) mg/dL Assessment and Plan Assessment: ASSESSMENT New onset systolic congestive heart failure with ejection fraction of 30-35% Severe aortic regurgitation Bicuspid aortic Moderate pulmonary hypertension Essential hypertension PLAN: Patient has bicuspid aortic wall with severe aortic regurgitation and asymptomatic. Cardiology on board and he had a cardiac catheterization and YOVANY as a part of workup. Cardiothoracic surgery team was consulted. Continue with current medication regimen. We'll monitor electrolytes. Continue with GI DVT prophylaxis. Further recommendations depending on the progress of the patient.
--- NOTE | 2020-12-30 16:33 | P.PN ---
Subjective Progress Note Date: 12/30/20 Principal diagnosis: New-onset systolic cardiomyopathy with ejection fraction of 30-35% Mr. Aguirre is a 50-year-old male with past medical history of hypertension coming in with a chief Complaint of difficulty in breathing. He was evaluated by cardiology and was found to have an ejection fraction of 30-35% secondary to severe aortic regurgitation. Patient has chest x-ray done showing mild pulmonary edema. As a part of workup for his aortic regurgitation he had YOVANY and cardiac catheterization done. On 12/29/2020- patient was seen and examined at the bedside. He is sitting comfortably in the bed appears to be no acute distress. Patient states that his Lasix has been helping him and he feels much light in terms of his lower extremity swelling. Patient denies having any chest pain or palpations. No cough or difficulty in breathing. No abdominal pain nausea vomiting or diarrhea. No dysuria or hematuria. On reviewing the vitals temperature 98.1, present on, especially to see pressure 127/50, saturating 95% on room air. Labs from this morning showing sodium 139, potassium 4.9, chloride 104, bicarb 28, BNP 27, creatinine 1.0. TSH 1.25 LDL 83. On 12/30/2020 - patient was seen and examined at the bedside. As per discussion with nursing staff patient had a low-grade fever with T-max of 99.1 this morning. He was also complaining of mild difficulty breathing. Patient denies having any chest pain or palpitations. No abdominal pain nausea vomiting or estela rrhea. No dysuria or hematuria. He denies having any increased swelling of his lower extremities. On reviewing his vitals, T-max of 99.3, and heart rate 100s to 11o's , blood pressure 127/50, saturating at 95% on room air. On reviewing the labs from this morning hemoglobin 15.3, platelets 201. Sodium 139, potassium 4, chloride 108, bicarbonate 21, BNP 29, creatinine 1.1. Active Medications Acetaminophen (Acetaminophen Tab 325 Mg Tab) 650 mg PO Q4HR PRN PRN Reason: Fever and/ or Pain Alprazolam (Alprazolam 0.25 Mg Tab) 0.25 mg PO Q6HR PRN PRN Reason: Mild Anxiety Alprazolam (Alprazolam 0.5 Mg Tab) 0.5 mg PO Q6HR PRN PRN Reason: Moderate Anxiety Aspirin (Aspirin 325 Mg Tab) 325 mg PO DAILY [facility] Last Admin: 12/30/20 07:55 Dose: 325 mg Documented by: Bupropion HCl (Bupropion Sr 150 Mg Tablet.Er) 150 mg PO BID [facility] Last Admin: 12/30/20 07:56 Dose: 150 mg Documented by: Famotidine (Famotidine 20 Mg Tab) 20 mg PO Q12HR [facility] Last Admin: 12/30/20 07:55 Dose: 20 mg Documented by: Furosemide (Furosemide 40 Mg Tab) 40 mg PO DAILY [facility] Last Admin: 12/30/20 07:56 Dose: 40 mg Documented by: Heparin Sodium (Porcine) (Heparin Sodium,Porcine/Pf 5,000 Unit/0.5 Ml Syringe) 5,000 unit SQ Q12HR [facility] Last Admin: 12/30/20 07:56 Dose: 5,000 unit Documented by: Lisinopril (Lisinopril 10 Mg Tab) 10 mg PO DAILY [facility] Metoprolol Succinate (Metoprolol Succinate (Er) 25 Mg Tab.Er.24h) 25 mg PO DAILY [facility] Last Admin: 12/30/20 07:55 Dose: 25 mg Documented by: Sodium Chloride (Sodium Chloride 0.9% Flush 10 Ml Syringe) 10 ml IV BID [facility] Last Admin: 12/30/20 07:56 Dose: 10 ml Documented by: Objective - Vital Signs Vital signs: Vital Signs Temp 99.3 F 12/30/20 08:27 Pulse 74 12/30/20 08:27 Resp 18 12/30/20 08:27 BP 142/72 12/30/20 08:27 Pulse Ox 98 12/30/20 08:43 Intake & Output 12/29/20 12/30/20 12/30/20 18:59 06:59 18:59 Intake Total 240 240 Balance 240 240 Intake: Oral 240 240 Other: Voiding Method Urinal Urinal Urinal # Voids 2 2 2 - Exam GENERAL: The patient is alert and oriented x3, not in any acute distress. Well developed, well nourished. HEENT: Pupils are round and equally reacting to light. EOMI. No scleral icterus. No conjunctival pallor. CARDIOVASCULAR: S1 and S2 present. Positive for diastolic murmur PULMONARY: Chest is clear to auscultation, no wheezing or crackles. ABDOMEN: Soft, nontender, nondistended, normoactive bowel sounds. No palpable organomegaly. MUSCULOSKELETAL: No joint swelling or deformity. EXTREMITIES: No cyanosis, clubbing, or pedal edema. NEUROLOGICAL: Gross neurological examination did not reveal any focal deficits. SKIN: No rashes. no petechiae. - Labs CBC & Chem 7: 12/30/20 05:51 12/30/20 05:51 Labs: Abnormal Lab Results - Last 24 Hours (Table) 12/29/20 12/30/20 Range/Units 06:38 05:51 WBC 10.62 H (4.50-10.00) X 10*3/uL Immature Gran # 0.09 H (0.00-0.04) X 10*3/uL Triglycerides 277 H (<150) mg/dL Assessment and Plan Assessment: ASSESSMENT New onset systolic congestive heart failure with ejection fraction of 30-35% Severe aortic regurgitation Bicuspid aortic Moderate pulmonary hypertension Essential hypertension PLAN: Patient has bicuspid aortic wall with severe aortic regurgitation and asymptomatic. Cardiology on board and he had a cardiac catheterization and YOVANY as a part of workup. Cardiothoracic surgery team was consulted. Continue with current medication regimen. We'll monitor electrolytes. As the patient had low-grade fever this morning along with mild difficulty in breathing, will repeat a chest x-ray this morning and also test for COVID-19. Continue with GI DVT prophylaxis. Further recommendations depending on the progress of the patient.
[2020-12-30 17:53] LABS: Hepatitis A Antibody IgM Non-Reactive (Non-Reactive); Hepatitis B Core IgM Non-Reactive (Non-Reactive); Hepatitis B Surface Antigen Non-Reactive (Non-Reactive); Hepatitis C IgG Antibody Non-Reactive (Non-Reactive)
[2020-12-31] MEDS ORDERED: FAMOTIDINE 20 MG/2 ML VIAL IV STA (07:42)
[2020-12-31] MEDS ORDERED: diphenhydrAMINE 50 MG/ML 1 ML VIAL IVP STA (07:42)
[2020-12-31] MEDS ORDERED: methylPREDNISolone SOD SUCCI 125 MG/2 ML VIAL IV STA (07:42)
[2020-12-31] MEDS: HEPARIN SODIUM,PORCINE/PF 5,000 UNIT/0.5 ML SYRINGE SQ SCH ×2 (08:01→21:23)
[2020-12-31] MEDS: ASPIRIN 325 MG TAB PO SCH (08:02)
[2020-12-31] MEDS: FAMOTIDINE 20 MG TAB PO SCH ×2 (08:02→21:23)
[2020-12-31] MEDS: METOPROLOL SUCCINATE (ER) 25 MG TAB.ER.24H PO SCH (08:02)
[2020-12-31] MEDS: FUROSEMIDE 40 MG TAB PO SCH (08:02)
[2020-12-31] MEDS: buPROPion SR 150 MG TABLET.ER PO SCH ×2 (08:03→21:23)
[2020-12-31] MEDS ORDERED: lisinopriL 10 MG TAB PO SCH (09:00)
--- NOTE | 2020-12-31 09:45 | US ---
EXAMINATION TYPE: US carotid duplex BILAT DATE OF EXAM: 12/31/2020 COMPARISON: NONE CLINICAL HISTORY: preop cardiac surgery. open heart, no stroke history EXAM MEASUREMENTS: RIGHT: Peak Systolic Velocity (PSV) cm/sec ----- Right CCA: 87.2 ----- Right ICA: 61.6 ----- Right ECA: 130 ICA/CCA ratio: 0.7 RIGHT: End Diastole cm/sec ----- Right CCA: 14.7 ----- Right ICA: 15.3 ----- Right ECA: 21.1 LEFT: Peak Systolic Velocity (PSV) cm/sec ----- Left CCA: 66.2 ----- Left ICA: 57.8 ----- Left ECA: 56.3 ICA/CCA ratio: 0.8 LEFT: End Diastole cm/sec ----- Left CCA: 7.6 ----- Left ICA: 18.4 ----- Left ECA: 4.5 VERTEBRALS (direction of flow): Right Vertebral: Antegrade Left Vertebral: Antegrade Rhythm: Mild homogeneous plaque with no stenosis seen Grayscale images show no significant focal plaque on images saved. Velocity measurements and ratios r emain within normal limits bilaterally. IMPRESSION: No hemodynamically significant stenosis seen in either internal carotid artery . Criteria for Assigning % of Stenosis / Diameter reduction (Estimation based on the indirect measurements of the internal carotid artery velocities (ICA PSV). 1. Normal (no stenosis)=ICA PSV < 125 cm/s: ratio < 2.0: ICA EDV<40 cm/s. 2. Less than 50% stenosis=ICA PSV < 125 cm/s: ratio < 2.0: ICA EDV<40 cm/s. 3. 50 to 69% stenosis=ICA PSV of 125 to 230 cm/s: ration 2.0 ? 4.0: ICA EDV 40-100 cm/s. 4. Greater than 70% stenosis to near occlusion= ICA PSV > 230 cm/s: ratio > 4.0: ICA EDV > 100 cm/s. 5. Near occlusion= ICA PSV velocities may be low or undetectable: variable ratio and ICA EDV. 6. Total occlusion=unable to detect flow.
--- NOTE | 2020-12-31 11:08 | CT ---
EXAMINATION TYPE: CT angio chest DATE OF EXAM: 12/31/2020 10:53 AM COMPARISON: CT chest 4 days ago HISTORY: Thoracic aorta, aortic root size CT DLP: 1442.60 mGycm Automated exposure control for dose reduction was used. CONTRAST: CTA scan of the thorax is performed without and with IV Contrast, patient injected with 100 ml mL of Isovue 370, aneurysm protocol. 3D reconstructed images are created on an independent workstation and reviewed.. FINDINGS: LUNGS: Interval resolution of small to tiny bilateral pleural effusions and associated compressive at electasis. Lungs currently clear. MEDIASTINUM: Slight aneurysmal change within the aorta redemonstrated. Aortic root measures between 4 .4-4.5 cm coronal image 43 similar to prior study. Remainder of the ascending aorta measures between 4.1 and 4.3 cm. Normal 3 vessel origins from the arch. No aneurysm extension into the arch or descend ing aorta. No significant plaque or stenosis. Cardiomegaly redemonstrated. Moderate left ventricular dilatation is noted. Mild biatrial dilatation. There are no greater than 1 cm hilar or mediastinal ly mph nodes. No pericardial effusion is seen. OTHER: Right-sided subareolar gynecomastia redemonstrated. IMPRESSION: Cardiomegaly with Ascending aortic aneurysm up to nearly 4.5 cm at root redemonstrated. N o extension into arch or descending aorta noted. Interval resolution of small bilateral pleural effus ions and associated bibasilar atelectasis.
--- NOTE | 2020-12-31 12:17 | PN ---
PROGRESS NOTE Mr. Aguirre is a 50-year-old male who presented with symptoms of progressive dyspnea. He had an echocardiogram on presentation that showed ejection fraction 30 to 35% with severe aortic regurgitation. He subsequently underwent transesophageal echocardiogram that showed a dilated left ventricle with impaired left ventricular systolic function and evidence of bicuspid aortic valve with severe aortic regurgitation. His cardiac catheterization revealed no evidence of obstructive coronary artery disease. He is feeling quite well at this time. He denies any chest pain. His breathing has been stable. He denies any dizziness or palpitations. His peripheral edema has resolved. His activity level has improved. He continues to be at this time on aspirin once a day, furosemide 40 mg daily, lisinopril 10 mg daily and metoprolol succinate 25 mg daily. PHYSICAL EXAMINATION: Blood pressure 133/70 with a heart rate in the 70s. LUNGS: Clear. HEART: Regular rate and rhythm S1, S2. No S3 with systolic ejection murmur and a diastolic murmur heard at the base. No rub. ABDOMEN: Soft, nontender. Positive bowel sounds. No organomegaly. EXTREMITIES: No edema. LAB DATA: Lab data revealed BUN and creatinine of 29 and 1.1. Potassium 4.2. Hemoglobin of 15.3. IMPRESSION: 1. Congestive heart failure with evidence of severe aortic regurgitation and dilated left ventricle. 2. Bicuspid aortic valve. RECOMMENDATION: Patient should be able to be discharged home today and being admitted electively to undergo surgical intervention for his aortic valve. In the meantime, I will increase the dose of his Zestril. Continue to increase his activity. MMODL / IJN: [id number] /
[2020-12-31] MEDS: lisinopriL 10 MG TAB PO SCH (21:23)
[2021-01-01 08:01] VITALS: RESP 18
[2021-01-01] MEDS: METOPROLOL SUCCINATE (ER) 25 MG TAB.ER.24H PO SCH (08:48)
[2021-01-01] MEDS: FAMOTIDINE 20 MG TAB PO SCH (08:48)
[2021-01-01] MEDS: HEPARIN SODIUM,PORCINE/PF 5,000 UNIT/0.5 ML SYRINGE SQ SCH ×2 (08:48→08:52)
[2021-01-01] MEDS: buPROPion SR 150 MG TABLET.ER PO SCH (08:48)
[2021-01-01] MEDS: FUROSEMIDE 40 MG TAB PO SCH (08:48)
[2021-01-01] MEDS: lisinopriL 10 MG TAB PO SCH (08:48)
[2021-01-01] MEDS ORDERED: ASPIRIN 81 MG PO SCH (09:00)
--- NOTE | 2021-01-01 09:46 | P.PN ---
Subjective Progress Note Date: 01/01/21 Principal diagnosis: Severe aortic insufficiency with bicuspid aortic valve, acute systolic heart failure with EF 30% on YOVANY. History of hypertension, previous tobacco dependence, questionable CHRIS The patient is currently sitting up in a chair in no acute distress. Denies any chest pain or shortness of breath, states he is feeling better every day, has been able to lay flat and was able to get a great night of sleep last night. He has seen by Dr. Herman, CTA of the chest was reviewed by Dr. Herman, recommendations were made for elective aortic valve and root replacement once recovered from acute heart failure. All preoperative testing completed. Patient has dental appointment this to receive dental clearance. All questions were answered, no new concerns. Objective - Vital Signs Vital signs: Vital Signs Temp 97.5 F L 01/01/21 08:01 Pulse 74 01/01/21 08:01 Resp 18 01/01/21 08:01 BP 143/75 01/01/21 08:01 Pulse Ox 98 01/01/21 08:01 Intake & Output 12/31/20 01/01/21 01/01/21 18:59 06:59 18:59 Other: Voiding Method Urinal # Voids 1 2 - Exam CONSTITUTIONAL: Appears comfortable, cooperative, no acute distress RESPIRATORY: Lungs sounds diminished bilaterally. Respirations even, nonlabored. Currently on room air with oxygen saturation 98%. CARDIOVASCULAR: S1, S2 present. Regular rate and rhythm, sinus rhythm on telemetry with heart rate in the 70-80s. Palpable peripheral pulses bilate rally. No edema present. No calf pain or tenderness noted. GASTROINTESTINAL: Abdomen soft, nontender, nondistended. Active bowel sounds present 4 quadrants. Tolerating diet. GENITOURINARY: Continues to void INTEGUMENTARY: Skin is warm and dry with evidence of good perfusion. NEUROLOGIC: Cranial nerves II through XII intact MUSKULOSKELETAL: Able to move all extremities, strength equal bilaterally, gait normal PSYCHIATRIC: Alert and oriented to person place and time, appropriate affect, intact judgment and insight - Allied health notes Allied health notes reviewed: nursing - Labs CBC & Chem 7: 12/30/20 05:51 12/30/20 05:51 - Imaging and Cardiology Chest x-ray: report reviewed, image reviewed CT scan - chest: report reviewed, image reviewed all preop testing reviewed Assessment and Plan Assessment: 1. Severe aortic insufficiency with bicuspid aortic valve 2. Acute systolic heart failure, EF 30-35% on YOVANY with moderate global hypokinesis 3. Hypertension 4. Previous tobacco dependence, preop FEV1 77% of predicted 5. Questionable CHRIS 6. No history of diabetes, Hgb A1c 5.2% Plan: 1. Continue aspirin, beta ben, SURESH inhibitor, diuresis 2. Heart failure management per Dr. Saez 3. From cardiothoracic surgery standpoint patient can be discharged to home, will achieve dental clearance , will return for elective surgery 4. Once Dr. Saez feels patient's heart failure/LV function has been optimally managed we will schedule patient for elective aortic valve replacement with aortic root replacement. This was discussed with the patient at length, he is in agreement. Our contact information was given to the patient should he have any questions prior to surgery. Time with Patient: Greater than 30
--- NOTE | 2021-01-01 12:52 | P.PN ---
Subjective This is a pleasant 50-year-old male presented with symptoms of progressive shortness of breath and was found to have ejection fraction of 30-35% with severe aortic regurgitation and bicuspid aortic valve. He is scheduled to undergo surgical repair with cardiothoracic surgery in the outpatient setting. He has no symptoms of chest pain and his shortness of breath has improved since admission. Blood pressure 143/75 heart rate 74 afebrile maintaining oxygen saturation on room air. Currently maintained on Toprol 25 mg daily, lisinopril 10 mg twice a day, Lasix 40 mg by mouth daily and aspirin. GENERAL: Well-appearing, well-nourished and in no acute distress. NECK: Supple without JVD or thyromegaly. LUNGS: Breath sounds clear to auscultation bilaterally. Respiration equal and unlabored. No wheezes, rales or rhonchi. HEART: Regular rate and rhythm with systolic and diastolic murmurs noted, no rubs or gallops. S1 and S2 heard. EXTREMITIES: Normal range of motion, no edema. No clubbing or cyanosis. Peripheral pulses intact. ASSESSMENT Acute systolic heart failure Bicuspid aortic valve PLAN Stable for discharge home on current medical regimen, prescriptions have been sent to patient's pharmacy. Follow-up in the outpatient setting with Dr. Saez and cardiothoracic surgery as recommended. Nurse Practitioner note has been reviewed, I agree with a documented findings and plan of care. Patient was seen and examined. Objective - Vital Signs Vital signs: Vital Signs Temp 97.5 F L 01/01/21 08:01 Pulse 74 01/01/21 08:01 Resp 18 01/01/21 08:01 BP 143/75 01/01/21 08:01 Pulse Ox 98 01/01/21 08:01 Intake & Output 12/31/20 01/01/21 01/01/21 18:59 06:59 18:59 Other: Voiding Method Urinal Urinal # Voids 1 2 - Labs CBC & Chem 7: 12/30/20 05:51 12/30/20 05:51
[2021-01-01 15:39] VITALS: BP 137/73; PULSE 75; TEMP 97.6
--- NOTE | 2021-01-01 15:52 | PN ---
PROGRESS NOTE This is a 50-year-old white male who remains on medication for systolic heart failure. He wants another opinion about TAVR surgery versus open surgery for the valve replacement for severe aortic insufficiency secondary to bicuspid aortic valve. CARDIOVASCULAR: S1, S2. LUNGS: Clear. GI: Soft. HEMATOLOGY: Negative Homans. If he cannot have TAVR here, he will have to continue with an outpatient referral. Prognosis extremely guarded. Continue with current treatment. MMODL / IJN: [id number] /
--- NOTE | 2021-01-01 23:12 | DS ---
DISCHARGE SUMMARY 50-year-old white male came in with systolic heart failure secondary to aortic insufficiency due to a bicuspid aortic valve. He has been seen by chest surgeon and [employer]. He is going to have a heart valve replaced. He is going to follow up with heart surgeon in the next few days. Remains on treatment for systolic heart failure including Lasix 40 mg daily, Toprol-XL 25 mg daily, Zestril 10 mg b.i.d., aspirin 81 mg daily. Follow up as outpatient. Prognosis guarded. CONDITION: Stable. MMODL / IJN: [id number] /
--- NOTE | 2021-01-02 08:53 | P.VSCSTY ---
Greater Saphenous Vein Mapping This is bilateral lower extremity greater saphenous vein mapping. Date of service: 12/31/2020 Vein quality and ultrasound appearance: We see no intraluminal thrombus or significant wall changes. Vein size groin right : 6 x 0.59 groin left:. 9.3 x 7.5 High thigh right: 3.7 x 4.0 high thigh left: 3.6 x 3.3 Mid thigh right: 3.0 x 3.4 mid thigh left: 3.3 x 4.2 Above-knee right: 2.9 x 3.7 above-knee left: 3.8 x 4.2 Below knee right: 2.6 x 3.2 below-knee left: 2.9 x 2.5 Mid calf right: 2.0 x 3.0 mid calf left: 3.9 x 2.7 Ankle right: 2.7 x 3.1 ankle left: 3.2 x 4.2 Impression: Usable bilateral greater saphenous vein.
== END 2021-01-01 16:09 | disposition home or self-care (01) | DRG 286 ==
LOC: EC 00:12 → 6NMEDSUR 02:36 → OBSVTOIN 12-29 14:53
PROVIDERS: ADMIT Family Medicine; ATTEND Family Medicine
PROC: B246ZZ4 Ultrasonography of Right and Left Heart, Transesophageal (ICD-10-PCS; 2020-12-28)
PROC: 4A023N7 Measurement of Cardiac Sampling and Pressure, Left Heart, Percutaneous Approach (ICD-10-PCS; principal; 2020-12-28 10:30)
PROC: B3101ZZ Fluoroscopy of Thoracic Aorta using Low Osmolar Contrast (ICD-10-PCS; principal; 2020-12-28 10:30)
PROC: B2161ZZ Fluoroscopy of Right and Left Heart using Low Osmolar Contrast (ICD-10-PCS; principal; 2020-12-28 10:30)
DX: Q23.1 Congenital insufficiency of aortic valve (principal); I50.21 Acute systolic (congestive) heart failure; I42.8 Other cardiomyopathies; F41.9 Anxiety disorder, unspecified; I11.0 Hypertensive heart disease with heart failure; I27.20 Pulmonary hypertension, unspecified; I49.3 Ventricular premature depolarization; I77.810 Thoracic aortic ectasia; G47.33 Obstructive sleep apnea (adult) (pediatric); K59.00 Constipation, unspecified; R09.02 Hypoxemia; F32.9 Major depressive disorder, single episode, unspecified; Z20.822 Contact with and (suspected) exposure to COVID-19; Z91.041 Radiographic dye allergy status; Z87.891 Personal history of nicotine dependence; Z87.442 Personal history of urinary calculi; Z82.3 Family history of stroke; Z79.899 Other long term (current) drug therapy; Z79.82 Long term (current) use of aspirin; Z90.49 Acquired absence of other specified parts of digestive tract; Z80.9 Family history of malignant neoplasm, unspecified; Z80.8 Family history of malignant neoplasm of other organs or systems
CPT/HCPCS: 36415; 71046; 71250; 71275; 80048; 80053; 80061; 80074; 83036; 83605; 83735; 83880; 84443; 84484; 85025; 85379; 85610; 85730; 87635; 93005; 93306; 93312; 93320; 93325; 93456; 93880; 93970; 94150; 94760; 99285

== ENCOUNTER → 2021-02-15 | Outpatient (CLI) | payer BC ==
[2021-02-15 09:41] LABS: HCT 40.8 % (39.0-53.0); HGB 14.5 gm/dL (13.0-17.5); MCH 29.2 pg (25.0-35.0); MCHC 35.5 g/dL (31.0-37.0); MCV 82.4 fL (80.0-100.0); Mean Platelet Volume 6.7; Platelet Count 224 k/uL (150-450); RBC 4.95 m/uL (4.30-5.90); RDW 13.1 % (11.5-15.5); WBC 7.4 k/uL (3.8-10.6)
[2021-02-15 09:57] LABS: Albumin 4.4 g/dL (3.5-5.0); Calcium 9.2 mg/dL (8.4-10.2); Potassium 4.1 mmol/L (3.5-5.1); Total Bilirubin 1.3 mg/dL (0.2-1.3)
--- NOTE | 2021-02-15 09:58 | XR ---
EXAMINATION TYPE: XR chest 2V DATE OF EXAM: 02/15/2021 COMPARISON: 12/30/2020 INDICATION: Presurgical clearance TECHNIQUE: Frontal and lateral views of the chest are obtained. FINDINGS: The heart size is normal. The pulmonary vasculature is normal. The lungs are clear. IMPRESSION: 1. No acute pulmonary process.
[2021-02-15 09:59] LABS: Partial Thromboplastin Time 23.3 sec (22.0-30.0); Prothrombin Time 10.4 sec (9.0-12.0)
[2021-02-15 11:09] LABS: Appearance,Urine Cloudy (Clear); Bilirubin,Urine Negative (Negative); Blood,Urine Large (Negative); Color,Urine Yellow; Glucose,Urine (UA) Negative (Negative); Hyaline Casts,Urine 5 /lpf (0-2); Ketones,Urine Negative (Negative); Leukocyte Esterase,Urine Negative (Negative); Mucus,Urine Moderate /hpf; Nitrite,Urine Negative (Negative); PH, Urine 5.5 (5.0-8.0); Protein,Urine Trace (Negative); RBC,Urine 84 /hpf (0-5); Specific Gravity,Urine 1.022 (1.001-1.035); Urobilinogen,Urine <2.0 mg/dL (<2.0); WBC,Urine 4 /hpf (0-5)
--- NOTE | 2021-02-20 09:44 | P.ARTDOP ---
Arterial Doppler LOWER EXTREMITY ARTERIAL DOPPLER: DATE OF SERVICE: 02/15/2021 Reason for study: [id number]. Doppler waveforms: Multiphasic bilaterally throughout. Pulse volume recording: []. Pressure gradients: None. Ankle-brachial indices: Greater than 1 bilaterally. Toe brachial indices: 0.85 on the right, 1 on the left Impression: Normal study.
== END | disposition home or self-care (01) ==
LOC: LABPAT 07:32
PROVIDERS: ATTEND Surgery
DX: Z01.810 Encounter for preprocedural cardiovascular examination (principal); I35.1 Nonrheumatic aortic (valve) insufficiency; E78.5 Hyperlipidemia, unspecified; I11.0 Hypertensive heart disease with heart failure; I50.21 Acute systolic (congestive) heart failure; Z79.01 Long term (current) use of anticoagulants; Z79.899 Other long term (current) drug therapy
CPT/HCPCS: 36415; 71046; 80053; 81001; 83735; 85027; 85610; 85730; 86850; 86900; 86901; 86920; 87070; 87086; 93005; 93922

== ENCOUNTER → 2021-03-02 | Outpatient (CLI) | payer BC ==
--- NOTE | 2021-03-02 09:01 | P.PN ---
Progress Note - Text Progress Note Date: 03/02/21 A 5 m walk test was completed with the patient, time 1: 2.36 seconds, time 2: 2.35 seconds, time 3: 2.59 seconds.
== END | disposition home or self-care (01) ==
LOC: LABPAT 08:44
PROVIDERS: ATTEND Surgery
DX: Z53.9 Procedure and treatment not carried out, unspecified reason (principal)

== ENCOUNTER 2021-03-04 05:43 | Inpatient (IN) | payer BC ==
[~2021-03-04 05:43] MED LIST: ALBUMIN HUMAN 5% 500 ML IVPB ONE; LACTATED RINGERS 1,000 ML IV ONE; LACTATED RINGERS 1,000 ML IV SCH; MIDAZOLAM 2 MG/2 ML VIAL IV PRN; SODIUM CHLORIDE 0.9% 1,000 ML IV ONE
[2021-03-04] MEDS ORDERED: NOREPINEPHRINE 4 MG in SODIUM CHLORIDE 0.9% 250 ML IV ONE (06:00)
[2021-03-04] MEDS ORDERED: NITROGLYCERIN-D5W PMX 25 MG/250 ML BTL IV ONE (06:00)
[2021-03-04] MEDS ORDERED: ELECTROLYTE-A SOLUTION 1,000 ML with POTASSIUM CHLORIDE 100 MEQ, MAGNESIUM SULFATE 16 M... IV ONE ×5 (06:00)
[2021-03-04] MEDS ORDERED: ELECTROLYTE-A SOLUTION 1,000 ML with POTASSIUM CHLORIDE 40 MEQ, MAGNESIUM SULFATE 16 ME... IV ONE ×5 (06:00)
[2021-03-04] MEDS ORDERED: ceFAZolin 1,000 MG in SODIUM CHLORIDE 0.9% IRRIGATIO 1,000 ML IRRIGATION ONE (06:00)
[2021-03-04] MEDS ORDERED: CHLORHEXIDINE GLUCONATE 15 ML CUP MUCOUS MEM ONE (06:00)
[2021-03-04] MEDS ORDERED: NITROGLYCERIN SL TABS 0.4 MG TAB SUBLINGUAL ONE (06:00)
[2021-03-04] MEDS ORDERED: INSULIN REGULAR 100 UNIT in SODIUM CHLORIDE 0.9% 100 ML IV ONE (06:00)
[2021-03-04] MEDS ORDERED: MUPIROCIN 2% OINT 22 GM TUBE NASAL ONE (06:00)
[2021-03-04] MEDS ORDERED: PHENYLEPHRINE 10 MG/ML VIAL IV ONE (06:00)
[2021-03-04] MEDS ORDERED: CALCIUM CHLORIDE 100 MG/ML 10 ML SYRINGE IV ONE (06:00)
[2021-03-04] MEDS ORDERED: MAGNESIUM SULFATE MG 500 MG/ML IV ONE (06:00)
[2021-03-04] MEDS ORDERED: CLEVIDIPINE BUTYRATE 25 MG in EMPTY BAG 1 BAG IV ONE (06:00)
[2021-03-04] MEDS ORDERED: PHENYLEPHRINE 40 MG in SODIUM CHLORIDE 0.9% 250 ML IV ONE (06:00)
[2021-03-04] MEDS ORDERED: ALBUMIN HUMAN 25% 50 ML IV ONE (06:00)
[2021-03-04] MEDS ORDERED: PROTAMINE SULFATE 250 MG in EMPTY BAG 1 BAG IV ONE (06:00)
[2021-03-04] MEDS ORDERED: HEPARIN SODIUM 1,000 UN/ML (10ML VL) IV ONE (06:00)
[2021-03-04] MEDS ORDERED: SODIUM BICARB 8.4% 50 ML SYR (1 MEQ/ML) IV ONE (06:00)
[2021-03-04] MEDS ORDERED: ASPIRIN 325 MG TAB PO ONE (06:00)
[2021-03-04] MEDS ORDERED: MANNITOL 25% 12.5 GM/50 ML VIAL IV ONE (06:00)
[2021-03-04] MEDS ORDERED: PROTAMINE SULFATE 10 MG/ML 25 ML VIAL IV ONE ×2 (06:00→08:18)
[2021-03-04] MEDS ORDERED: HEPARIN SODIUM,PORCINE 5,000 UNIT in SODIUM CHLORIDE 0.9% 500 ML 500 ML IV ONE (06:00)
[2021-03-04] MEDS ORDERED: TRANEXAMIC ACID 2,000 MG in SODIUM CHLORIDE 0.9% 80 ML IV ONE ×4 (06:00)
[2021-03-04] MEDS ORDERED: propofoL 1,000 MG/100 ML VIAL IV ONE (06:00)
[2021-03-04] MEDS ORDERED: PAPAVERINE 360 MG in SODIUM CHLORIDE 0.9% 90 ML IV ONE (06:00)
[2021-03-04] MEDS ORDERED: NITROGLYCERIN-D5W PMX 50 MG in DEXTROSE/WATER 1 250ML.BAG IV ONE (06:00)
[2021-03-04] MEDS: ATORVASTATIN 10 MG TAB PO ONE ×2 (06:24→16:10)
[2021-03-04] MEDS: METOPROLOL TARTRATE 12.5 MG TAB PO ONE ×2 (06:24→16:10)
[2021-03-04] MEDS ORDERED: LACTATED RINGERS 1,000 ML IV ONE ×2 (06:30)
[2021-03-04] MEDS ORDERED: LIDOCAINE 1% (10MG/ML) FOR IV START INTRADERMA ONE (06:30)
[2021-03-04] MEDS ORDERED: LIDOCAINE 2% SYG (PF) 100 MG/5 ML ONE (08:18)
[2021-03-04] MEDS ORDERED: CALCIUM CHLORIDE 100 MG/ML 10 ML SYRINGE ONE (08:18)
[2021-03-04] MEDS ORDERED: SODIUM CHLORIDE 0.9% IRRIG 1,000 ML BTL IRRIGATION ONE (08:18)
[2021-03-04] MEDS ORDERED: MAGNESIUM SULFATE 4 MEQ/ML 10ML VIAL ONE (08:18)
[2021-03-04] MEDS ORDERED: HEPARIN SODIUM,PORCINE 10,000 UNIT/ML 1 ML VIAL ONE (08:18)
[2021-03-04] MEDS ORDERED: fentaNYL (PF) 50 MCG/ML 2 ML AMP ONE (08:18)
[2021-03-04] MEDS ORDERED: SUFentanil 50 MCG/ML 1 ML AMP IV ONE (08:18)
[2021-03-04] MEDS ORDERED: ELECTROLYTE-R (PH 7.4) 1,000 ML IV.SOLN IV ONE (08:18)
[2021-03-04] MEDS ORDERED: fentaNYL (PF) 50 MCG/ML 50 ML VIAL ONE (08:18)
[2021-03-04] MEDS ORDERED: VECURONIUM 10 MG VIAL IV ONE (08:18)
[2021-03-04] MEDS ORDERED: MIDAZOLAM 2 MG/2 ML VIAL ONE (08:18)
[2021-03-04] MEDS ORDERED: TRANEXAMIC ACID 1,000 MG/10 ML VIAL ONE (08:18)
[2021-03-04] MEDS ORDERED: ALBUMIN HUMAN 5% (25gm) 500 ML VIAL IVPB ONE (08:18)
[2021-03-04] MEDS ORDERED: METOPROLOL TARTRATE 5 MG/5 ML VIAL IVP ONE (08:18)
[2021-03-04] MEDS ORDERED: SUCCINYLCHOLINE CHLORIDE VIAL 200 MG/10 ML VIAL IV ONE (08:18)
[2021-03-04] MEDS ORDERED: NOREPINEPHRINE 1 MG/ML 4 ML VIAL IV ONE (08:18)
[2021-03-04] MEDS ORDERED: SODIUM CHLORIDE 0.9% 250 ML BAG ONE (08:18)
[2021-03-04] MEDS ORDERED: EPINEPHrine 2 MG in DEXTROSE 5% IN WATER 250 ML IV ONE ×2 (08:30)
[2021-03-04 09:14] LABS: ABG Glucose Whole Blood 96 mg/dL (75-99); ABG HCO3 23 mmol/L (21-25); ABG Hematocrit 37 % (34.0-46.0); ABG Ionized Calcium 4.7 mg/dL (4.5-5.3); ABG PCO2 37 mmHg (35-45); ABG PH 7.41 (7.35-7.45); ABG Potassium Whole Blood 4.2 mmol/L (3.4-4.5); ABG Sodium Whole Blood 140 mmol/L (135-146); ABG TCO2 25 mmol/L (19-24)
[2021-03-04 10:55] LABS: ABG Base Excess -2.5 mmol/L; ABG Glucose Whole Blood 97 mg/dL (75-99); ABG HCO3 23 mmol/L (21-25); ABG Hematocrit 34 % (34.0-46.0); ABG Ionized Calcium 4.3 mg/dL (4.5-5.3); ABG PCO2 44 mmHg (35-45); ABG PH 7.34 (7.35-7.45); ABG PO2 378 mmHg (83-108); ABG Potassium Whole Blood 4.6 mmol/L (3.4-4.5); ABG Sodium Whole Blood 139 mmol/L (135-146); ABG TCO2 25 mmol/L (19-24)
[2021-03-04 11:30] LABS: ABG Base Excess -2.1 mmol/L; ABG Glucose Whole Blood 116 mg/dL (75-99); ABG HCO3 24 mmol/L (21-25); ABG Hematocrit 32 % (34.0-46.0); ABG Ionized Calcium 4.5 mg/dL (4.5-5.3); ABG PCO2 45 mmHg (35-45); ABG PH 7.34 (7.35-7.45); ABG PO2 344 mmHg (83-108); ABG Potassium Whole Blood 4.8 mmol/L (3.4-4.5); ABG Sodium Whole Blood 141 mmol/L (135-146); ABG TCO2 25 mmol/L (19-24)
[2021-03-04 12:10] LABS: ABG Base Excess -1.7 mmol/L; ABG Glucose Whole Blood 118 mg/dL (75-99); ABG HCO3 24 mmol/L (21-25); ABG Hematocrit 27 % (34.0-46.0); ABG Ionized Calcium 4.5 mg/dL (4.5-5.3); ABG Oxygen Saturation 99.9 % (94-97); ABG PCO2 42 mmHg (35-45); ABG PH 7.36 (7.35-7.45); ABG PO2 277 mmHg (83-108); ABG Potassium Whole Blood 4.4 mmol/L (3.4-4.5); ABG Sodium Whole Blood 140 mmol/L (135-146); ABG TCO2 25 mmol/L (19-24)
[2021-03-04 12:31] LABS: ABG Base Excess -2.3 mmol/L; ABG Glucose Whole Blood 121 mg/dL (75-99); ABG HCO3 24 mmol/L (21-25); ABG Hematocrit 31 % (34.0-46.0); ABG Ionized Calcium 4.5 mg/dL (4.5-5.3); ABG PCO2 46 mmHg (35-45); ABG PH 7.33 (7.35-7.45); ABG PO2 408 mmHg (83-108); ABG Potassium Whole Blood 4.6 mmol/L (3.4-4.5); ABG Sodium Whole Blood 140 mmol/L (135-146); ABG TCO2 25 mmol/L (19-24)
[2021-03-04 13:18] LABS: ABG Base Excess -4.3 mmol/L; ABG Glucose Whole Blood 111 mg/dL (75-99); ABG HCO3 22 mmol/L (21-25); ABG Hematocrit 31 % (34.0-46.0); ABG Ionized Calcium 4.4 mg/dL (4.5-5.3); ABG PCO2 43 mmHg (35-45); ABG PH 7.31 (7.35-7.45); ABG PO2 299 mmHg (83-108); ABG Potassium Whole Blood 4.6 mmol/L (3.4-4.5); ABG Sodium Whole Blood 140 mmol/L (135-146); ABG TCO2 23 mmol/L (19-24)
[2021-03-04 14:17] LABS: ABG PO2 >420 mmHg (83-108)
[2021-03-04 14:18] LABS: ABG Lactic Acid Whole Blood 2.1 mmol/L (0.5-1.6)
[2021-03-04 14:19] LABS: ABG Lactic Acid Whole Blood 1.4 mmol/L (0.5-1.6)
[2021-03-04 14:20] LABS: ABG Lactic Acid Whole Blood 1.3 mmol/L (0.5-1.6)
[2021-03-04 14:21] LABS: ABG Lactic Acid Whole Blood 1.4 mmol/L (0.5-1.6)
[2021-03-04 14:23] LABS: ABG Lactic Acid Whole Blood 3.3 mmol/L (0.5-1.6)
[2021-03-04 14:28] LABS: ABG Base Excess -1.1 mmol/L; ABG Glucose Whole Blood 99 mg/dL (75-99); ABG HCO3 23 mmol/L (21-25); ABG Hematocrit 34 % (34.0-46.0); ABG Ionized Calcium 4.9 mg/dL (4.5-5.3); ABG PCO2 34 mmHg (35-45); ABG PH 7.43 (7.35-7.45); ABG PO2 401 mmHg (83-108); ABG Potassium Whole Blood 3.8 mmol/L (3.4-4.5); ABG Sodium Whole Blood 141 mmol/L (135-146); ABG TCO2 24 mmol/L (19-24)
[2021-03-04 14:47] LABS: ABG Lactic Acid Whole Blood 2.7 mmol/L (0.5-1.6)
[2021-03-04] MEDS: LACTATED RINGERS 1,000 ML IV SCH (15:15)
[2021-03-04] MEDS: CLEVIDIPINE BUTYRATE 25 MG in EMPTY BAG 1 BAG IV SCH ×2 (15:20→17:26)
[2021-03-04] MEDS ORDERED: AMIODARONE 360 MG in DEXTROSE 5% IN WATER 200 ML IV PRN ×2 (15:30)
[2021-03-04] MEDS ORDERED: Potassium Replacement Protocol 1 EACH MISC MISCELLANE PRN (15:30)
[2021-03-04] MEDS ORDERED: Phosphorus Replacement Protoco 1 EACH MISC MISCELLANE PRN (15:30)
[2021-03-04] MEDS ORDERED: Magnesium Replacement Protocol 1 EACH MISC MISCELLANE PRN (15:30)
[2021-03-04] MEDS ORDERED: METOCLOPRAMIDE 5 MG/ML 2 ML VIAL IVP PRN (15:30)
[2021-03-04] MEDS ORDERED: MILRINONE-D5W PMX 20 MG in DEXTROSE/WATER 1 100ML.BAG IV SCH ×2 (15:30→17:00)
[2021-03-04] MEDS ORDERED: IPRATROPIUM-ALBUTEROL 3 ML NEB INHALATION PRN (15:30)
[2021-03-04 15:37] LABS: Basophils % (A) 0 %; Eosinophils # (A) 0.1 k/uL (0-0.7); Eosinophils % (A) 1 %; Lymphocytes # (A) 0.6 k/uL (1.0-4.8); Lymphocytes % (A) 7 %; MCH 29.5 pg (25.0-35.0); MCHC 35.1 g/dL (31.0-37.0); Monocytes # (A) 0.2 k/uL (0-1.0); Monocytes % (A) 2 %; Neutrophils # (A) 8.5 k/uL (1.3-7.7); Neutrophils % (A) 90 %; Platelet Count 131 k/uL (150-450); WBC 9.4 k/uL (3.8-10.6)
[2021-03-04 15:40] LABS: Glucose,Whole Blood 97 mg/dL (75-99)
[2021-03-04 15:41] LABS: Ionized Calcium 4.9 mg/dL (4.5-5.3)
[2021-03-04 15:50] LABS: HGB 11.2 gm/dL (13.0-17.5); INR 1.1 (<1.2); Partial Thromboplastin Time 35.7 sec (22.0-30.0); Prothrombin Time 11.7 sec (9.0-12.0)
[2021-03-04] MEDS ORDERED: DEXTROSE 5% IN WATER 100 ML with AMIODARONE 150 MG IV PRN (15:50)
[2021-03-04 15:54] LABS: ALT 16 U/L (4-49); AST 38 U/L (17-59); African American GFR (CKD) >90 (>60 ml/min/1.73 sqM); Albumin 2.3 g/dL (3.5-5.0); Alkaline Phosphatase 41 U/L (38-126); Anion Gap 6 mmol/L; Blood Urea Nitrogen 7 mg/dL (9-20); Carbon Dioxide 22 mmol/L (22-30); Chloride 112 mmol/L (98-107); Glucose 95 mg/dL (74-99); Magnesium 2.4 mg/dL (1.6-2.3); Non-African American GFR(CKD) >90 (>60 ml/min/1.73 sqM); Potassium 3.9 mmol/L (3.5-5.1); Sodium 140 mmol/L (137-145); Total Protein 4.1 g/dL (6.3-8.2)
--- NOTE | 2021-03-04 15:58 | XR ---
EXAMINATION TYPE: XR chest 1V portable DATE OF EXAM: 03/04/2021 Comparison: 02/15/2021 Clinical History: 51 year-old male Post Operative Cardiac Surgery Findings: ET tube satisfactory. NG tube courses below the diaphragm. Mediastinal drains are present. Right IJ S wan-Calixto catheter tip appears to be in the proximal right main pulmonary artery. Heart is enlarged. P atchy retrocardiac and left basilar opacity. No appreciable pneumothorax. Impression: Mild cardiomegaly and left basilar and retrocardiac opacity, likely postoperative atelectasis.
[2021-03-04 16:00] LABS: ABG Base Excess -1.8 mmol/L; ABG HCO3 24 mmol/L (21-25); ABG Oxygen Saturation 98.2 % (94-97); ABG PCO2 43 mmHg (35-45); ABG PH 7.35 (7.35-7.45); ABG PO2 109 mmHg (83-108); ABG TCO2 25 mmol/L (19-24); Allen Test Performed? Yes
[2021-03-04] MEDS ORDERED: CALCIUM GLUCONATE 2 GM in SODIUM CHLORIDE 0.9% 100 ML IVPB PRN (16:00)
[2021-03-04] MEDS: IPRATROPIUM-ALBUTEROL 3 ML NEB INHALATION SCH ×2 (16:07→19:50)
[2021-03-04 16:32] LABS: Glucose,Whole Blood 137 mg/dL (75-99)
[2021-03-04] MEDS: INSULIN REGULAR 100 UNIT in SODIUM CHLORIDE 0.9% 100 ML IV SCH (16:34)
[2021-03-04 17:08] LABS: Glucose,Whole Blood 142 mg/dL (75-99)
[2021-03-04] MEDS: HEPARIN SODIUM,PORCINE/PF 5,000 UNIT/0.5 ML SYRINGE SQ SCH ×2 (17:15→23:24)
[2021-03-04] MEDS: ACETAMINOPHEN IV (For NPO) 1,000 MG in EMPTY BAG 1 BAG IVPB SCH ×2 (17:17→23:23)
[2021-03-04] MEDS: KETOROLAC 15 MG/ML 1 ML VIAL IVP SCH ×2 (17:23→23:24)
[2021-03-04 17:59] LABS: Glucose,Whole Blood 159 mg/dL (75-99)
[2021-03-04 18:11] LABS: Basophils # (A) 0.1 k/uL (0-0.2); Basophils % (A) 0 %; Eosinophils # (A) 0.2 k/uL (0-0.7); Eosinophils % (A) 1 %; HCT 36.5 % (39.0-53.0); Lymphocytes # (A) 0.8 k/uL (1.0-4.8); Lymphocytes % (A) 3 %; MCH 29.8 pg (25.0-35.0); MCHC 35.6 g/dL (31.0-37.0); MCV 83.6 fL (80.0-100.0); Mean Platelet Volume 6.6; Monocytes # (A) 1.3 k/uL (0-1.0); Monocytes % (A) 5 %; Neutrophils % (A) 92 %; Platelet Count 224 k/uL (150-450); RBC 4.36 m/uL (4.30-5.90); RDW 14.2 % (11.5-15.5); WBC 27.7 k/uL (3.8-10.6)
[2021-03-04 18:29] LABS: Neutrophils # (A) 25.4 k/uL (1.3-7.7)
[2021-03-04 18:51] LABS: Glucose,Whole Blood 170 mg/dL (75-99)
[2021-03-04 19:54] LABS: Glucose,Whole Blood 175 mg/dL (75-99)
[2021-03-04 19:54] LABS: ABG Base Excess -1.6 mmol/L; ABG HCO3 24 mmol/L (21-25); ABG PCO2 44 mmHg (35-45); ABG PH 7.35 (7.35-7.45); ABG PO2 123 mmHg (83-108); ABG TCO2 25 mmol/L (19-24); Allen Test Performed? Yes
[2021-03-04] MEDS ORDERED: METOPROLOL TARTRATE 12.5 MG TAB PO SCH (21:00)
[2021-03-04] MEDS ORDERED: AMIODARONE 450 MG in DEXTROSE 5% IN WATER 250 ML IV PRN ×2 (21:00)
[2021-03-04 21:05] LABS: Glucose,Whole Blood 159 mg/dL (75-99)
[2021-03-04 21:16] LABS: Basophils # (A) 0.1 k/uL (0-0.2); Basophils % (A) 0 %; Eosinophils % (A) 0 %; HCT 34.5 % (39.0-53.0); HGB 12.4 gm/dL (13.0-17.5); Lymphocytes # (A) 0.5 k/uL (1.0-4.8); Lymphocytes % (A) 3 %; MCV 83.3 fL (80.0-100.0); Mean Platelet Volume 7.1; Monocytes # (A) 0.8 k/uL (0-1.0); Monocytes % (A) 4 %; Neutrophils # (A) 18.5 k/uL (1.3-7.7); Neutrophils % (A) 93 %; Platelet Count 182 k/uL (150-450); RBC 4.14 m/uL (4.30-5.90); RDW 13.6 % (11.5-15.5); WBC 19.9 k/uL (3.8-10.6)
[2021-03-04] MEDS: ONDANSETRON 4 MG/2 ML VIAL IVP PRN (21:51)
[2021-03-04 22:07] LABS: Glucose,Whole Blood 148 mg/dL (75-99)
--- NOTE | 2021-03-04 22:37 | OP ---
OPERATIVE REPORT DATE OF THE SURGERY: 03/04/2021. SURGEON: Dr. Teena Herman. [employer]: Kailee Carey, physician traffic assistant, and Greg Mejia, Nurse practitioner, and co- surgeon, Dr. Rod Dominguez required for this very complex procedure. PREOPERATIVE DIAGNOSES: Unicuspid aortic valve with severe aortic valve regurgitation, moderate left anterior dysfunction, moderate root and ascending dilatation with bovine arch, mild mitral valve regurgitation, hypertension. POSTOPERATIVE DIAGNOSES: Unicuspid aortic valve with severe aortic valve regurgitation, moderate left anterior dysfunction, moderate root and ascending dilatation with bovine arch, mild mitral valve regurgitation, hypertension. Non repairable calcified retracted aortic valve that is unicuspid with selective dilatation of the noncoronary sinus and ascending aorta. PROCEDURE DETAILS: 1. Aortic valve replacement using a 25 mm On-X mechanical valve. 2. Selective non coronary sinus replacement along with ascending aortic replacement using a 32 mm gelweave straight graft. 3. Exclusion of the left atrial appendage using a 35 mm AtriClip. 4. Intraoperative transesophageal echocardiogram and epiaortic scanning. INDICATIONS: Patient is a 51-year-old gentleman who was admitted to [facility] around 2 months ago in heart failure. Workup included cardiac catheterization that was normal as well as a 2D echo and YOVANY that concluded to a bicuspid aortic valve with severe aortic valve regurgitation with initially severe left ventricular dysfunction. We were consulted at that point, and patient was optimized medically and repeat echo showed moderate left anterior dysfunction. There was a suggestion of aortic root dilatation on echo. For that reason, a CTA was obtained along with root reconstruction and the patient had a moderate root dilatation between 4-4.3, asymmetric along with also moderate ascending aortic dilatation with a bovine arch anatomy. Extensive discussion followed with the patient and he obtained dental clearance as an outpatient. We had planned initial exploration for potential repair of the aortic valve with selective sinus replacement versus modified Bentall. The choice of valve needed to replace the valve was discussed and he opted for a mechanical valve which I was supportive of. The STS risk was discussed with him and his . They understood it and agreed to proceed. PROCEDURE: Patient in supine position. Right internal jugular [place]-Calixto catheter and a right radial arterial line were placed. PA pressure 35/15, cardiac index of 2.4. Subsequently he was brought to the operating room where general endotracheal anesthesia was induced uneventfully. A Garcia catheter was inserted. The chest, abdomen and both lower extremity were prepped and draped using ChloraPrep. Ioban was used to cover the skin. Patient received 2 g of cefazolin intravenously. Transesophageal echocardiogram confirmed the preoperative finding of severe aortic valve regurgitation on a bicuspid valve that seemed to be a type 2 basically unicuspid along with severe aortic valve regurgitation and moderate left ventricular dysfunction and mild mitral valve regurgitation. Midline sternotomy was performed and Ostene was used. Both pleura remained intact. Mediastinal fat was transected between 2 ties and epiaortic scanning revealed dilated aorta, but no protruding atheroma in it. Pericardium was opened in an inverted T- fashion and a pericardial cradle was created. Findings included relatively short and moderately dilated aorta with a dilated left ventricle and somewhat thinned out. After systemic heparinization, after placement of respective pledgeted pursestring, aortic cannulation, the proximal arch with a 21-Kittitian soft flow cannula and venous cannulation via the right atrial appendage with a 29/37 cannula was performed. Antegrade as well as retrograde cardioplegia catheters were placed. Cardiopulmonary bypass was initiated and patient temperature was allowed to drift down to 34 degrees Celsius. The aorta was initially transected in its mid aspect and exploration revealed a slightly high right coronary takeoff as predicted, which was closer to the None / right commissure than usual. The left takeoff was also slightly high and closer to the commissure with the noncoronary sinus. We exposed the aortic valve with 3 Prolene 4-0 sutures above each commissure. Exploration revealed as predicted a unicuspid valve with a major fusion between the left and the right and mild fusion between the right and non cusps. There was moderate calcification of the raphae on both sides. However, the leaflet edges were very thickened and retracted, and in particular diminutive at the level of the right cusp. The noncoronary sinus cuff measured to a 23. The left at 21 and the right was small and the 19 was actually tight and there was not enough valve to reach the equator of the Sizer. Dr. Micha Andrews was on a video conferencing capability for opinion and he agreed that this valve is non repairable. For that reason, we proceeded at excising the valve, which measured to a 25 mm On-X mechanical valve. A total of 17 Tycron 2-0 sutures pledgeted on the ventricular side were placed, passed into the cuff of the aortic valve that was selected. All the needles were cut and suture tied using the cor knot device. Both coronary ostia were clear. Myocardial protection consisted of an initial dose of 800 mL of antegrade cold blood cardioplegia followed by subsequent doses retrograde every 15 minutes. Additional doses were given directly to the ostial cannulation of the right coronary artery for better RV protection. Attention was moved at this point at the root assessment. As assessed by the both Sizer, the left and right sinuses were normal and dilatation was selectively at the level of the noncoronary sinus, which was thinned out. For that reason, we decided to selectively replace that sinus. A 32 mm gel weave straight graft was selected and a tongue was fashioned at around 120 degree circumference of it. That was secured to the bottom of the noncoronary sinus using a pledgeted 4-0 Prolene everting the graft this way. We used autologous pericardium throughout all the anastomotic aortic suture lines. That suture line was ran up the sinus to each commissure. Then carried after fashioning the graft transversely above the right and left coronary ostia in a horizontal fashion. The suture was tied at the end, reinforced with a pledget. CoSeal was applied. We tested the suture line at that point with antegrade plegia via the graft which provided a dose of antegrade via both coronary as well as testing the anastomotic line and that appeared to be hemostatic. Subsequently, rewarming was started as we fashioned the graft appropriately and anastomosed it to the distal aorta using 4-0 Prolene. Also reinforced with the autologous pericardium. There was a small split in the aortic intima proximally that was selectively repaired with a pledgeted 6-0 Prolene from inside and going to the outside. FloSeal was applied. I replaced the ascending aortic root vent into the mid of the constructed graft and achieved good suction. De-airing maneuvers were followed. The patient was given around 1 L of warm blood retrograde as we were closing and completing the distal anastomotic line. After de-airing maneuver and with the aortic root on maximum suction and the patient in Tredelenburg position, we unclamped the aorta. Up front it appeared that the hemostasis is acceptable. There were a couple of areas on the distal anastomotic site that required a pledgeted 4-0 Prolene for reinforcement. The patient required couple of cardioversion to regain spontaneous sinus rhythm. Two monopolar atrial pacing wires were affixed to the right atrium and 1 ventricular bipolar pacing wire was placed. De-airing was guided by YOVANY and was adequate. After around 20 minutes of reperfusion, we were able to slowly wean off cardioplegia bypass on moderate dose Primacor. He had received a half load dose initially. The patient was initially on Levophed that eventually was stopped. The cardiac index was 2.5 and we improved to around 2.9. YOVANY showed good functioning aortic valve with no paravalvular leak and was restarted in terms of moderate left ventricular dysfunction and dilatation. No mitral valve regurgitation. The left atrial appendage had been excluded with a 35 mm AtriClip deployed at its base. Test-dose and full dose protamine was given. Decannulation followed. The aortic cannulation site required reinforcement with 4-0 pledgeted Prolene. Two nineteen- Kitt[place] Ricardo drains were placed substernally. Pericardial and mediastinal fat were approximated over the graft and there was not much to approximate over the heart especially in view of us excising a good part of the autologous pericardium anteriorly for use as a reinforcement on our aortic suture lines. After ensuring adequate hemostasis and hemodynamic and after correct sponge, instrument, and needle count, the sternum was closed using 5 [id number] pineal cable after interposing fibular between the sternal edges. Thorough irrigation of cefazolin followed. The rest of the closure proceeded in layers. Skin glue was applied. The patient did not receive any blood bank product but received 800 mL of Cell Saver blood. He was transferred to the ICU in stable condition in normal sinus rhythm with good conduction, mean arterial pressure of 72, PA pressure of 30-15 and cardiac index of 2.8. MMODL / IJN: [id number] / [facility]
[2021-03-04 23:04] LABS: Glucose,Whole Blood 140 mg/dL (75-99)
[2021-03-05 00:07] LABS: Glucose,Whole Blood 141 mg/dL (75-99)
[2021-03-05 01:05] LABS: Glucose,Whole Blood 141 mg/dL (75-99)
[2021-03-05] MEDS: HYDROcodone/APAP 5-325MG 1 EACH TAB PO PRN ×5 (01:18→15:11)
[2021-03-05 02:53] LABS: Glucose,Whole Blood 138 mg/dL (75-99)
[2021-03-05 04:23] LABS: Glucose,Whole Blood 126 mg/dL (75-99)
[2021-03-05 04:39] LABS: Basophils % (A) 0 %; Eosinophils % (A) 0 %; HCT 32.6 % (39.0-53.0); HGB 11.7 gm/dL (13.0-17.5); Lymphocytes # (A) 0.9 k/uL (1.0-4.8); Lymphocytes % (A) 5 %; MCH 29.6 pg (25.0-35.0); MCHC 35.8 g/dL (31.0-37.0); MCV 82.9 fL (80.0-100.0); Mean Platelet Volume 7.1; Monocytes % (A) 6 %; Neutrophils % (A) 89 %; Platelet Count 178 k/uL (150-450); RBC 3.93 m/uL (4.30-5.90); RDW 13.6 % (11.5-15.5); WBC 18.1 k/uL (3.8-10.6)
[2021-03-05] MEDS: KETOROLAC 15 MG/ML 1 ML VIAL IVP SCH ×4 (05:05→23:11)
[2021-03-05 05:15] LABS: Ionized Calcium 4.9 mg/dL (4.5-5.3)
[2021-03-05] MEDS: ONDANSETRON 4 MG/2 ML VIAL IVP PRN (05:24)
[2021-03-05] MEDS: ALBUMIN HUMAN 5% 250 ML in EMPTY BAG 1 BAG IVPB PRN ×2 (05:29→05:59)
[2021-03-05 05:32] LABS: ALT 19 U/L (4-49); AST 56 U/L (17-59); African American GFR (CKD) >90 (>60 ml/min/1.73 sqM); Albumin 2.8 g/dL (3.5-5.0); Alkaline Phosphatase 46 U/L (38-126); Anion Gap 2 mmol/L; Blood Urea Nitrogen 9 mg/dL (9-20); Calcium 8.2 mg/dL (8.4-10.2); Carbon Dioxide 28 mmol/L (22-30); Chloride 108 mmol/L (98-107); Glucose 124 mg/dL (74-99); Non-African American GFR(CKD) >90 (>60 ml/min/1.73 sqM); Potassium 4.7 mmol/L (3.5-5.1); Sodium 138 mmol/L (137-145); Total Protein 4.8 g/dL (6.3-8.2)
[2021-03-05 05:39] LABS: Glucose,Whole Blood 128 mg/dL (75-99)
--- NOTE | 2021-03-05 06:39 | P.CNPUL ---
History of Present Illness Consult date: 03/05/21 Requesting physician: Teena Herman Reason for consult: other Chief complaint: Severe aortic valve disease, aortic regurgitation. History of present illness: Pulmonary consultation dated 03/05/2021. This is a 59-year-old male, who is postop day #1, status post Bentall procedure. 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 The patient had aortic valve replacement using a 25 mm On- X mechanical valve, selected non-coronary sinus replacement along with ascending aortic replacement using a 32 mm Gel weave straight graft, exclusion of the left atrial appendage and intraoperative transesophageal echocardiogram. Currently, the patient's doing well. He is on 4 L nasal cannula. He was extubated within 5 hours post exiting the operating room. The patient is on lactated Ringer's at 50 mL an hour, and Primacor at 0.2 mcg/kg/m. The patient is getting insulin at 3.5 units an hour. Currently, the patient appears to be doing relatively well. White count 18.1, hemoglobin 11.7, hematocrit 32.6, and platelet count normal. Sodium 138, potassium 4.7, chlorides 108, CO2 28, anion gap 2, BUN 9, creatinine 0.81. Chest x-ray shows cardiomegaly and some mild bibasilar atelectasis. Review of Systems REVIEW OF SYSTEMS: CONSTITUTIONAL: Moderate discomfort at the surgical site. NEUROLOGIC: [ Negative.] HEENT: [ Negative.] CARDIAC: [Negative.] PULMONARY: [Negative.] GI: [Negative.] : [Negative.] RHEUMATOLOGIC: [ Negative.] IMMUNOLOGIC: [ Negative.] ENDOCRINE: [Negative. ] DERMATOLOGIC: [Negative.] Past Medical History Past Medical History: Hypertension Additional Past Medical History / Comment(s): kidney stones; possible CHRIS-shanta ent was seen by pulmonology in 03/2019 but didn't follow up with testing for CHRIS,was having SOB w/ exertion,is better. Recently passed Kidney stone on 02-13-21. History of Any Multi-Drug Resistant Organisms: None Reported Past Surgical History: Appendectomy, Heart Catheterization Additional Past Surgical History / Comment(s): kidney stones procedure,YOVANY Past Anesthesia/Blood Transfusion Reactions: Postoperative Nausea & Vomiting (PONV) Smoking Status: Former smoker - Past Family History Mother Family Medical History: Cancer Additional Family Medical History / Comment(s): still alive at 78 y/o Father Family Medical History: CVA/TIA Additional Family Medical History / Comment(s): at 86 y/o Medications and Allergies Home Medications Medication Instructions Recorded Confirmed Type buPROPion HCL [buPROPion HCL SR] 150 mg PO BID 12/26/20 03/04/21 History Furosemide [Lasix] 40 mg PO DAILY #90 tab 01/01/21 03/04/21 Rx Metoprolol Succinate (ER) [Toprol 25 mg PO DAILY tab.er.24h 01/01/21 03/04/21 Rx XL] lisinopriL [Zestril] 10 mg PO BID #180 tab 01/01/21 03/04/21 Rx Mupirocin [Mupirocin 2%] 1 applic TOPICAL BID #1 tube 02/18/21 03/04/21 Rx Aspirin 324 mg PO DAILY 03/04/21 03/04/21 History Allergies Allergy/AdvReac Type Severity Reaction Status Date / Time Iodinated Contrast Media AdvReac Severe Vomiting Verified 03/04/21 05:57 Physical Exam Osteopathic Statement: *. No significant issues noted on an osteopathic structural exam other than those noted in the History and Physical/Consult. Vitals: Vital Signs Temp Pulse Pulse Resp BP Pulse Ox 03/05/21 04:30 94 14 98 03/05/21 04:00 99.3 F 94 17 97 03/05/21 03:30 92 12 97 03/05/21 03:00 93 18 96 03/05/21 02:30 95 20 97 03/05/21 02:00 96 11 L 96 03/05/21 01:30 96 12 96 03/05/21 01:00 98 17 98 03/05/21 00:30 98 12 102/67 97 03/05/21 00:00 98.8 F 100 16 96 03/04/21 23:30 98 14 100/68 97 03/04/21 23:00 98 17 97 03/04/21 22:30 99 19 99/62 97 03/04/21 22:00 100 16 96 03/04/21 21:30 98 14 91/65 97 03/04/21 21:00 98 17 96 03/04/21 20:30 99 24 102/74 96 03/04/21 20:00 99.0 F 92 7 L 98 03/04/21 19:50 92 03/04/21 19:30 98 8 L 101/64 96 03/04/21 19:00 98 11 L 96 03/04/21 18:30 101 H 10 L 92/60 96 03/04/21 18:00 98 15 97 03/04/21 17:30 104 H 19 97 03/04/21 17:00 95 20 100 03/04/21 16:30 96 21 100 03/04/21 16:21 92 03/04/21 16:10 92 03/04/21 16:00 98.8 F 92 23 97 03/04/21 15:45 89 22 100 03/04/21 15:30 90 78 20 100 03/04/21 15:16 85 15 Intake and Output 03/04/21 03/04/21 03/05/21 14:59 22:59 06:59 Intake Total 52 898.334 3293.578 Output Total 1900 1525 450 Balance -1848 -855.716 614.578 Intake: IV 52 563 554 ACETAMINOPHEN IV (For NPO 100 ) 1,000 mg In Empty Bag 1 bag @ 400 mls/hr IVPB Q6HR [facility] Rx#:[id number] CARDIAC OUTPUT 100 60 Lactated Ringers 1,000 ml 400 290 @ 50 mls/hr IV .Q20H [facility] Rx#:[id number] Pressure Bag 0.9 Sodium 63 54 Chloride ceFAZolin 2 gm In Sodium 50 Chloride 0.9% 50 ml @ 100 mls/hr IVPB Q8HR [facility] Rx# :[id number] Intake, IV Titration 106.284 30.578 Amount Clevidipine Butyrate 25 48.067 mg In Empty Bag 1 bag @ 1 MG/HR 2 mls/hr IV .Q24H [facility] Rx#:[id number] Insulin Regular 100 unit 15.696 30.578 In Sodium Chloride 0.9% 100 ml @ Per Protocol IV .Q0M [facility] Rx#:[id number] Milrinone-D5w Pmx 20 mg 9.779 In Dextrose/Water 1 100ml .bag @ Per Protocol IV . Q0M [facility] Rx#:[id number] propofoL 1,000 mg In 32.742 Empty Bag 1 bag @ Titrate IV .Q0M [facility] Rx#: [id number] Oral 480 Output: Chest Tube Drainage 290 70 Mediastinal 290 70 Urine 900 1235 380 Estimated Blood Loss 1000 Other: Voiding Method Indwelling Catheter Indwelling Catheter ABP, PAP, CO, CI - Last 8 Hours Arterial Blood Pressure 114/66 Arterial Blood Pressure 139/63 Arterial Blood Pressure 124/65 Arterial Blood Pressure 107/55 Arterial Blood Pressure 100/49 Arterial Blood Pressure 122/62 Arterial Blood Pressure 116/61 Arterial Blood Pressure 105/53 Arterial Blood Pressure 105/57 Arterial Blood Pressure 122/62 Arterial Blood Pressure 124/60 Arterial Blood Pressure 109/56 Arterial Blood Pressure 109/59 Pulmonary Artery Pressure 28/19 Pulmonary Artery Pressure 25/14 Pulmonary Artery Pressure 24/17 Pulmonary Artery Pressure 23/13 Pulmonary Artery Pressure 21/13 Pulmonary Artery Pressure 22/11 Pulmonary Artery Pressure 20/13 Pulmonary Artery Pressure 21/12 Pulmonary Artery Pressure 22/13 Pulmonary Artery Pressure 24/17 Pulmonary Artery Pressure 24/14 Pulmonary Artery Pressure 23/11 Pulmonary Artery Pressure 25/17 Cardiac Output 8.6 Cardiac Output 7.6 Cardiac Index 3.5 Cardiac Index 3.1 No acute distress, oriented 3. Patient currently on 4 L nasal cannula. HEENT examination is grossly unremarkable. Neck supple. Full range of motion. No adenopathy thyromegaly or neck vein distention. Cardiovascular examination reveals regular rhythm rate. S1-S2 normal. No S3 or S4. No discernible murmur noted. Heart rate 94 bpm. Lungs reveal mostly clear breath sounds. Breath sounds are equal bilaterally. Mild bilateral scattered rhonchi are noted. There are no wheezes or crackles. Abdomen soft bowel sounds are heard. No masses or tenderness. Extremities are intact. No cyanosis clubbing or edema. Skin is without rash or lesion. Neurologic examination is brief but nonfocal. Results - Laboratory Findings CBC and BMP: 03/05/21 04:15 03/05/21 04:15 ABG ABG pH 7.35 (7.35-7.45) 03/04/21 19:49 ABG pCO2 44 mmHg (35-45) 03/04/21 19:49 ABG pO2 123 mmHg (83-108) H 03/04/21 19:49 ABG O2 Saturation 99.0 % (94-97) H 03/04/21 19:49 PT/INR, D-dimer PT 11.7 sec (9.0-12.0) 03/04/21 15:15 INR 1.1 (<1.2) 03/04/21 15:15 Abnormal lab findings: Abnormal Labs 03/02/21 03/04/21 03/04/21 08:50 09:17 10:57 WBC RBC Hgb Hct Plt Count Neutrophils # Lymphocytes # Monocytes # APTT ABG pH 7.34 L ABG pCO2 ABG pO2 >420 H 378 H ABG Total CO2 25 H 25 H ABG O2 Saturation 100.0 H 100.0 H ABG Hematocrit ABG Potassium 4.6 H ABG Ionized Calcium 4.3 L ABG Glucose ABG Lactic Acid 2.1 H Hemoglobin 12.0 L 10.9 L Chloride BUN Glucose POC Glucose (mg/dL) Calcium Magnesium Total Protein Albumin Arterial Blood Potassium 4.6 H Arterial Blood Glucose Crossmatch See Detail 03/04/21 03/04/21 03/04/21 11:33 12:13 12:33 WBC RBC Hgb Hct Plt Count Neutrophils # Lymphocytes # Monocytes # APTT ABG pH 7.34 L 7.33 L ABG pCO2 46 H ABG pO2 344 H 277 H 408 H ABG Total CO2 25 H 25 H 25 H ABG O2 Saturation 100.0 H 99.9 H 100.0 H ABG Hematocrit 32 L 27 L 31 L ABG Potassium 4.8 H 4.6 H ABG Ionized Calcium ABG Glucose 116 H 118 H 121 H ABG Lactic Acid 2.0 H Hemoglobin 10.6 L 8.7 L 10.2 L Chloride BUN Glucose POC Glucose (mg/dL) Calcium Magnesium Total Protein Albumin Arterial Blood Potassium 4.8 H 4.6 H Arterial Blood Glucose 116 H 118 H 121 H Crossmatch 03/04/21 03/04/21 03/04/21 13:21 14:30 15:15 WBC RBC 3.80 L Hgb 11.2 L D Hct 32.0 L Plt Count 131 L Neutrophils # 8.5 H Lymphocytes # 0.6 L Monocytes # APTT ABG pH 7.31 L ABG pCO2 34 L ABG pO2 299 H 401 H ABG Total CO2 ABG O2 Saturation 100.0 H 100.0 H ABG Hematocrit 31 L ABG Potassium 4.6 H ABG Ionized Calcium 4.4 L ABG Glucose 111 H ABG Lactic Acid 3.3 H* 2.7 H* Hemoglobin 10.0 L 11.0 L Chloride BUN Glucose POC Glucose (mg/dL) Calcium Magnesium Total Protein Albumin Arterial Blood Potassium 4.6 H Arterial Blood Glucose 111 H Crossmatch 03/04/21 03/04/21 03/04/21 15:15 15:15 15:58 WBC RBC Hgb Hct Plt Count Neutrophils # Lymphocytes # Monocytes # APTT 35.7 H ABG pH ABG pCO2 ABG pO2 109 H ABG Total CO2 25 H ABG O2 Saturation 98.2 H ABG Hematocrit ABG Potassium ABG Ionized Calcium ABG Glucose ABG Lactic Acid Hemoglobin Chloride 112 H BUN 7 L Glucose POC Glucose (mg/dL) Calcium 8.0 L Magnesium 2.4 H Total Protein 4.1 L Albumin 2.3 L Arterial Blood Potassium Arterial Blood Glucose Crossmatch 03/04/21 03/04/21 03/04/21 16:30 17:07 17:57 WBC RBC Hgb Hct Plt Count Neutrophils # Lymphocytes # Monocytes # APTT ABG pH ABG pCO2 ABG pO2 ABG Total CO2 ABG O2 Saturation ABG Hematocrit ABG Potassium ABG Ionized Calcium ABG Glucose ABG Lactic Acid Hemoglobin Chloride BUN Glucose POC Glucose (mg/dL) 137 H 142 H 159 H Calcium Magnesium Total Protein Albumin Arterial Blood Potassium Arterial Blood Glucose Crossmatch 03/04/21 03/04/21 03/04/21 18:00 18:50 19:49 WBC 27.7 H RBC Hgb Hct 36.5 L Plt Count Neutrophils # 25.4 H Lymphocytes # 0.8 L Monocytes # 1.3 H APTT ABG pH ABG pCO2 ABG pO2 123 H ABG Total CO2 25 H ABG O2 Saturation 99.0 H ABG Hematocrit ABG Potassium ABG Ionized Calcium ABG Glucose ABG Lactic Acid Hemoglobin Chloride BUN Glucose POC Glucose (mg/dL) 170 H Calcium Magnesium Total Protein Albumin Arterial Blood Potassium Arterial Blood Glucose Crossmatch 03/04/21 03/04/21 03/04/21 19:52 21:00 21:03 WBC 19.9 H RBC 4.14 L Hgb 12.4 L Hct 34.5 L Plt Count Neutrophils # 18.5 H Lymphocytes # 0.5 L Monocytes # APTT ABG pH ABG pCO2 ABG pO2 ABG Total CO2 ABG O2 Saturation ABG Hematocrit ABG Potassium ABG Ionized Calcium ABG Glucose ABG Lactic Acid Hemoglobin Chloride BUN Glucose POC Glucose (mg/dL) 175 H 159 H Calcium Magnesium Total Protein Albumin Arterial Blood Potassium Arterial Blood Glucose Crossmatch 03/04/21 03/04/21 03/05/21 22:05 23:03 00:05 WBC RBC Hgb Hct Plt Count Neutrophils # Lymphocytes # Monocytes # APTT ABG pH ABG pCO2 ABG pO2 ABG Total CO2 ABG O2 Saturation ABG Hematocrit ABG Potassium ABG Ionized Calcium ABG Glucose ABG Lactic Acid Hemoglobin Chloride BUN Glucose POC Glucose (mg/dL) 148 H 140 H 141 H Calcium Magnesium Total Protein Albumin Arterial Blood Potassium Arterial Blood Glucose Crossmatch 03/05/21 03/05/21 03/05/21 01:04 02:51 04:15 WBC 18.1 H RBC 3.93 L Hgb 11.7 L Hct 32.6 L Plt Count Neutrophils # 16.0 H Lymphocytes # 0.9 L Monocytes # APTT ABG pH ABG pCO2 ABG pO2 ABG Total CO2 ABG O2 Saturation ABG Hematocrit ABG Potassium ABG Ionized Calcium ABG Glucose ABG Lactic Acid Hemoglobin Chloride BUN Glucose POC Glucose (mg/dL) 141 H 138 H Calcium Magnesium Total Protein Albumin Arterial Blood Potassium Arterial Blood Glucose Crossmatch 03/05/21 03/05/21 03/05/21 04:15 04:21 05:38 WBC RBC Hgb Hct Plt Count Neutrophils # Lymphocytes # Monocytes # APTT ABG pH ABG pCO2 ABG pO2 ABG Total CO2 ABG O2 Saturation ABG Hematocrit ABG Potassium ABG Ionized Calcium ABG Glucose ABG Lactic Acid Hemoglobin Chloride 108 H BUN Glucose 124 H POC Glucose (mg/dL) 126 H 128 H Calcium 8.2 L Magnesium Total Protein 4.8 L Albumin 2.8 L Arterial Blood Potassium Arterial Blood Glucose Crossmatch - Diagnostic Findings Chest x-ray: image reviewed Assessment and Plan Assessment: Postop day #1, status post Bentall procedure, including aortic valve replacement using a 25 mm On-X mechanical valve, selective the noncoronary sinus replacement along with ascending aortic replacement using a 32 mm gel the straight graft, exclusion of the left atrial appendage, and intraoperative transesophageal echocardiogram, for severe unicuspid aortic valve with severe aortic valve regurgitation. Routine postoperative ventilator management, with extubation in less than 6 hours. History of hypertension. History of chronic hypersomnia and possible sleep apnea syndrome. History of kidney stones. History of appendectomy. Plan: Plan dated 03/05/2021. Currently, from the pulmonary standpoint, the patient is doing well. He was extubated in less than 6 hours after surgery. He remains on 4 L nasal cannula. He is also on lactated Ringer's at 50 mL an hour, and insulin drip at 3.5 units an hour, and Primacor at 0.2 g kilogram per minute. Chest x-ray looks reasonably stable. We will continue to follow. Prognosis is guarded. No additional recommendations are made. Time with Patient: Greater than 30
[2021-03-05 06:56] LABS: Glucose,Whole Blood 123 mg/dL (75-99)
--- NOTE | 2021-03-05 07:10 | CONS ---
CONSULTATION Status post valvular heart surgery with open valvular heart surgery. He remains on DuoNeb updrafts, amiodarone through the IV, aspirin, Lipitor, calcium gluconate, cefazolin for prophylactic antibiotics, Clevidipine 25 mg IV drip, Plavix , Heparin subcu. Remains on the ventilator. Surgery apparently went well. Going to try to wean off the sedation, get him off the vent. PHYSICAL EXAMINATION: Temperature 99, pulse is 98-100, respiratory 7-14, blood pressure 91 to 102/60s to 70s. Pulmonary artery pressure 20/11, CVP 67, O2 saturation 96-98 on CPAP. Wean down to 4 L nasal cannula. Remains in ICU. CARDIOVASCULAR: S1, S2. LUNGS clear. PSYCH: Resting comfortably. ASSESSMENT: 1. Status post open chest valvular heart surgery. He appears to be stable. DuoNeb updrafts will be continued. 2. Status post aortic valve repair. 3. Mitral valve regurgitation. 4. Hypertension. 5. Continue wean off vent. 6. Status post aortic valve replacement, ex mechanical valve selective. 7. Non coronary sinus replacement, ascending aortic replacement. 8. Prognosis is guarded. 9. Continue current treatments. MMODL / IJN: [id number] /
[2021-03-05] MEDS: IPRATROPIUM-ALBUTEROL 3 ML NEB INHALATION SCH ×4 (07:33→19:47)
--- NOTE | 2021-03-05 07:41 | XR ---
EXAMINATION TYPE: XR chest 1V portable DATE OF EXAM: 03/05/2021 HISTORY: Post Operative Cardiac Surgery COMPARISON: 03/04/2021 TECHNIQUE: Single view of the chest is submitted. FINDINGS: Endotracheal and NG tubes have been removed .Whitney-Calixto catheter remains in place as well as mediastin al drains. No evidence for pneumothorax. Left lower lobe discoid atelectasis identified. The heart is stable. Hilar and mediastinal structures are within normal limits. Degenerative changes are seen of the dorsal spine. IMPRESSION: 1. Improving aeration left lower lobe persistent discoid atelectasis.
[2021-03-05 07:57] LABS: Glucose,Whole Blood 162 mg/dL (75-99)
[2021-03-05] MEDS: HEPARIN SODIUM,PORCINE/PF 5,000 UNIT/0.5 ML SYRINGE SQ SCH ×3 (08:09→23:11)
[2021-03-05] MEDS: CLOPIDOGREL 75 MG TAB PO SCH (08:09)
[2021-03-05] MEDS: METOPROLOL TARTRATE 25 MG TAB PO SCH ×2 (08:09→20:30)
[2021-03-05] MEDS: ATORVASTATIN 40 MG TAB PO SCH (08:09)
[2021-03-05] MEDS: ASPIRIN 325 MG TAB PO SCH (08:09)
[2021-03-05] MEDS: PANTOPRAZOLE 40 MG/10 ML VIAL IVP SCH (08:10)
[2021-03-05] MEDS ORDERED: CALCIUM GLUCONATE 1 GM in SODIUM CHLORIDE 0.9% 100 ML IVPB ONE (08:30)
[2021-03-05] MEDS ORDERED: METOPROLOL TARTRATE 12.5 MG TAB PO SCH (09:00)
[2021-03-05] MEDS ORDERED: bisacodyL 10 MG SUPP RECTAL PRN (09:00)
[2021-03-05 09:11] LABS: Glucose,Whole Blood 155 mg/dL (75-99)
[2021-03-05 09:54] LABS: Glucose,Whole Blood 130 mg/dL (75-99)
[2021-03-05 10:25] VITALS: BMI 32.5
--- NOTE | 2021-03-05 10:26 | P.PN ---
Subjective Progress Note Date: 03/05/21 Principal diagnosis: Unicuspid aortic valve with severe aortic valve regurgitation, moderate left anterior dysfunction, moderate root and ascending dilation with bovine arch, and mild mitral valve regurgitation. Past medical history significant for hypertension, acute systolic heart failure, history of kidney stones, bronchitis, obesity with a BMI of 32.6 kg/m and history of chronic hypersomnia and possible sleep apnea syndrome. Preoperative nasal swab positive for MSSA. POD #1 aortic valve replacement using a 25 mm On-X mechanical valve. Selective non-coronary sinus replacement along with ascending aortic replacement using a 32 mm gel weave straight graft. Exclusion of the left atrial appendage using a 35 mm Atriclip. Intraoperative transesophageal echocardiogram and epi-aortic scanning. Postoperative acute blood loss anemia, expected due to hemodilution and cardiopulmonary bypass The patient was seen in follow-up today 03/05/2021 at his bedside in the i ntensive care unit. Currently he is sitting up to the bedside chair, as awake, alert and oriented 3 and is in no acute distress. He is sitting up to the bedside chair, denies any complaints of shortness of breath although was complaining of some surgical type pain to his chest tube insertion sites. He remains hemodynamically stable, and has Primacor 0.2 mcg/kg/m infusing. Right IJ Stoutland-Calixto and Cordis in place with current hemodynamic showing a cardiac output of 6.3, cardiac index 2.6, PA pressures 23/15 and a CVP of 8 mmHg. He was successfully extubated at 8:10 PM last evening and is currently on 2 L nasal cannula with oxygen saturation is 97%. He is demonstrating good use on his inc entive spirometry and is achieving 1500 mL. Mediastinal chest tubes remain in place to low continuous wall suction -27 m H2O. No air leak is present. Draining thin serosanguineous drainage with 110 mL output in the last 8 hours and 430 mL output since surgery. Garcia catheter remained in place for accurate I's and O's with good urine output of 455 mL in the last 8 hours. The patient did have some complaints of nausea with 1 episode of emesis this morning after getting up out of bed to his chair. No further complaints of nausea at this time. Objective - Vital Signs Vital signs: Vital Signs Temp 97.9 F 03/05/21 08:00 Pulse 88 03/05/21 09:00 Resp 12 03/05/21 09:00 BP 102/67 03/05/21 00:30 Pulse Ox 97 03/05/21 09:00 Intake & Output 03/04/21 03/05/21 03/05/21 18:59 06:59 18:59 Intake Total 339.087 4200.923 659.844 Output Total 3065 925 210 Balance -2531.061 784.923 449.844 Weight 118.3 kg Intake: IV 439 948 307 ACETAMINOPHEN IV (For NPO 100 ) 1,000 mg In Empty Bag 1 bag @ 400 mls/hr IVPB Q6HR SWATI Rx#:[id number] CARDIAC OUTPUT 60 100 60 Lactated Ringers 1,000 ml 200 590 120 @ 20 mls/hr IV .Q24H SWATI Rx#:[id number] Pressure Bag 0.9 Sodium 27 108 27 Chloride ceFAZolin 2 gm In Sodium 50 100 Chloride 0.9% 50 ml @ 100 mls/hr IVPB Q8HR SWATI Rx# :[id number] Intake, IV Titration 94.939 41.923 112.844 Amount Calcium Gluconate 1 gm In 100 Sodium Chloride 0.9% 100 ml @ 100 mls/hr IVPB ONCE ONE Rx#:[id number] Clevidipine Butyrate 25 48.067 mg In Empty Bag 1 bag @ 1 MG/HR 2 mls/hr IV .Q24H SWATI Rx#:[id number] Insulin Regular 100 unit 4.351 41.923 12.844 In Sodium Chloride 0.9% 100 ml @ Per Protocol IV .Q0M SWATI Rx#:[id number] Milrinone-D5w Pmx 20 mg 9.779 In Dextrose/Water 1 100ml .bag @ Per Protocol IV . Q0M SWATI Rx#:[id number] propofoL 1,000 mg In 32.742 Empty Bag 1 bag @ Titrate IV .Q0M SWATI Rx#: [id number] Oral 720 Tube Feeding 240 Output: Chest Tube Drainage 220 180 40 Mediastinal 220 180 40 Urine 1845 745 170 Estimated Blood Loss 1000 Other: Voiding Method Indwelling Catheter Indwelling Catheter ABP, PAP, CO, CI - Last Documented Arterial Blood Pressure 149/52 Pulmonary Artery Pressure 18/5 Cardiac Output 7.9 Cardiac Index 3.3 - Exam CONSTITUTIONAL: Sitting up to the bedside chair in the intensive care unit, appears comfortable, cooperative, no apparent acute distress. HEENT: Neck is supple, no JVD, no lymphadenopathy. Right IJ Cordis and Stoutland- Calixto catheter in place and functioning. RESPIRATORY: Lungs sounds essentially clear throughout, diminished to his bilateral bases. Respirations are symmetrical and nonlabored. Currently on 2 L nasal cannula with oxygen saturations 97%. Able to achieve 1500 mL on their incentive spirometry. Strong cough. CARDIOVASCULAR: Regular rhythm and rate. S1 and S2 present, negative for S3, gallop or murmur. Sternum is stable. Palpable peripheral pulses bilaterally, +1 edema to his bilateral lower extremities. No calf pain or tenderness noted. Heart hugger in place with patient demonstrating appropriate use. Knee-high JUANI hose and sequential compression devices in place to his bilateral lower extremities. Bedside telemetry showing normal sinus rhythm heart rate 84 BPM. GASTROINTESTINAL: Abdomen soft, nontender, nondistended. Hypoactive bowel sounds present 4 quadrants. Tolerating diet. Passing flatus. No guarding or rigidity. GENITOURINARY: Garcia present draining clear, yellow urine. Output 455 mL in the last 8 hours INTEGUMENTARY: Skin is warm and dry with no evidence of clubbing or cyanosis. Midline sternal incision clean dry and well approximated, covered with dry intact dressing. No drainage or redness is present. NEUROLOGIC: Cranial nerves II through XII intact. No focal deficits. MUSKULOSKELETAL: Able to move all extremities, strength equal bilaterally, generalized weakness. PSYCHIATRIC: Alert and oriented to person place and time, appropriate affect, intact judgment and insight. INVASIVE LINES AND TUBES: Mediastinal chest tubes present and connected to low continuous wall suction, no air leaks present. Mediastinal tube with 110 mL of thin serosanguineous drainage overnight, 430 mL output in the last 24 hours. Atrial and ventricular epicardial pacemaker wires present, connected to generator, VVI backup rate 50 bpm. Right internal jugular Stoutland/Cordis, right radial arterial line present. Last CO 6.3 , CI 2.6, PA 23/15 and CVP 8 mmHg. - Labs CBC & Chem 7: 03/05/21 04:15 03/05/21 04:15 Labs: Abnormal Lab Results - Last 24 Hours (Table) 03/02/21 03/04/21 03/04/21 Range/Units 08:50 09:17 10:57 WBC (3.8-10.6) k/uL RBC (4.30-5.90) m/uL Hgb (13.0-17.5) gm/dL Hct (39.0-53.0) % Plt Count (150-450) k/uL Neutrophils # (1.3-7.7) k/uL Lymphocytes # (1.0-4.8) k/uL Monocytes # (0-1.0) k/uL APTT (22.0-30.0) sec ABG pH 7.34 L (7.35-7.45) ABG pCO2 (35-45) mmHg ABG pO2 >420 H 378 H (83-108) mmHg ABG Total CO2 25 H 25 H (19-24) mmol/L ABG O2 Saturation 100.0 H 100.0 H (94-97) % ABG Hematocrit (34.0-46.0) % ABG Potassium 4.6 H (3.4-4.5) mmol/L ABG Ionized Calcium 4.3 L (4.5-5.3) mg/dL ABG Glucose (75-99) mg/dL ABG Lactic Acid 2.1 H (0.5-1.6) mmol/L Hemoglobin 12.0 L 10.9 L (13.0-17.5) gm/dL Chloride (98-107) mmol/L BUN (9-20) mg/dL Glucose (74-99) mg/dL POC Glucose (mg/dL) (75-99) mg/dL Calcium (8.4-10.2) mg/dL Magnesium (1.6-2.3) mg/dL Total Protein (6.3-8.2) g/dL Albumin (3.5-5.0) g/dL Arterial Blood Potassium 4.6 H (3.4-4.5) mmol/L Arterial Blood Glucose (75-99) mg/dL Crossmatch See Detail 03/04/21 03/04/21 03/04/21 Range/Units 11:33 12:13 12:33 WBC (3.8-10.6) k/uL RBC (4.30-5.90) m/uL Hgb (13.0-17.5) gm/dL Hct (39.0-53.0) % Plt Count (150-450) k/uL Neutrophils # (1.3-7.7) k/uL Lymphocytes # (1.0-4.8) k/uL Monocytes # (0-1.0) k/uL APTT (22.0-30.0) sec ABG pH 7.34 L 7.33 L (7.35-7.45) ABG pCO2 46 H (35-45) mmHg ABG pO2 344 H 277 H 408 H (83-108) mmHg ABG Total CO2 25 H 25 H 25 H (19-24) mmol/L ABG O2 Saturation 100.0 H 99.9 H 100.0 H (94-97) % ABG Hematocrit 32 L 27 L 31 L (34.0-46.0) % ABG Potassium 4.8 H 4.6 H (3.4-4.5) mmol/L ABG Ionized Calcium (4.5-5.3) mg/dL ABG Glucose 116 H 118 H 121 H (75-99) mg/dL ABG Lactic Acid 2.0 H (0.5-1.6) mmol/L Hemoglobin 10.6 L 8.7 L 10.2 L (13.0-17.5) gm/dL Chloride (98-107) mmol/L BUN (9-20) mg/dL Glucose (74-99) mg/dL POC Glucose (mg/dL) (75-99) mg/dL Calcium (8.4-10.2) mg/dL Magnesium (1.6-2.3) mg/dL Total Protein (6.3-8.2) g/dL Albumin (3.5-5.0) g/dL Arterial Blood Potassium 4.8 H 4.6 H (3.4-4.5) mmol/L Arterial Blood Glucose 116 H 118 H 121 H (75-99) mg/dL Crossmatch 03/04/21 03/04/21 03/04/21 Range/Units 13:21 14:30 15:15 WBC (3.8-10.6) k/uL RBC 3.80 L (4.30-5.90) m/uL Hgb 11.2 L D (13.0-17.5) gm/dL Hct 32.0 L (39.0-53.0) % Plt Count 131 L (150-450) k/uL Neutrophils # 8.5 H (1.3-7.7) k/uL Lymphocytes # 0.6 L (1.0-4.8) k/uL Monocytes # (0-1.0) k/uL APTT (22.0-30.0) sec ABG pH 7.31 L (7.35-7.45) ABG pCO2 34 L (35-45) mmHg ABG pO2 299 H 401 H (83-108) mmHg ABG Total CO2 (19-24) mmol/L ABG O2 Saturation 100.0 H 100.0 H (94-97) % ABG Hematocrit 31 L (34.0-46.0) % ABG Potassium 4.6 H (3.4-4.5) mmol/L ABG Ionized Calcium 4.4 L (4.5-5.3) mg/dL ABG Glucose 111 H (75-99) mg/dL ABG Lactic Acid 3.3 H* 2.7 H* (0.5-1.6) mmol/L Hemoglobin 10.0 L 11.0 L (13.0-17.5) gm/dL Chloride (98-107) mmol/L BUN (9-20) mg/dL Glucose (74-99) mg/dL POC Glucose (mg/dL) (75-99) mg/dL Calcium (8.4-10.2) mg/dL Magnesium (1.6-2.3) mg/dL Total Protein (6.3-8.2) g/dL Albumin (3.5-5.0) g/dL Arterial Blood Potassium 4.6 H (3.4-4.5) mmol/L Arterial Blood Glucose 111 H (75-99) mg/dL Crossmatch 03/04/21 03/04/21 03/04/21 Range/Units 15:15 15:15 15:58 WBC (3.8-10.6) k/uL RBC (4.30-5.90) m/uL Hgb (13.0-17.5) gm/dL Hct (39.0-53.0) % Plt Count (150-450) k/uL Neutrophils # (1.3-7.7) k/uL Lymphocytes # (1.0-4.8) k/uL Monocytes # (0-1.0) k/uL APTT 35.7 H (22.0-30.0) sec ABG pH (7.35-7.45) ABG pCO2 (35-45) mmHg ABG pO2 109 H (83-108) mmHg ABG Total CO2 25 H (19-24) mmol/L ABG O2 Saturation 98.2 H (94-97) % ABG Hematocrit (34.0-46.0) % ABG Potassium (3.4-4.5) mmol/L ABG Ionized Calcium (4.5-5.3) mg/dL ABG Glucose (75-99) mg/dL ABG Lactic Acid (0.5-1.6) mmol/L Hemoglobin (13.0-17.5) gm/dL Chloride 112 H (98-107) mmol/L BUN 7 L (9-20) mg/dL Glucose (74-99) mg/dL POC Glucose (mg/dL) (75-99) mg/dL Calcium 8.0 L (8.4-10.2) mg/dL Magnesium 2.4 H (1.6-2.3) mg/dL Total Protein 4.1 L (6.3-8.2) g/dL Albumin 2.3 L (3.5-5.0) g/dL Arterial Blood Potassium (3.4-4.5) mmol/L Arterial Blood Glucose (75-99) mg/dL Crossmatch 03/04/21 03/04/21 03/04/21 Range/Units 16:30 17:07 17:57 WBC (3.8-10.6) k/uL RBC (4.30-5.90) m/uL Hgb (13.0-17.5) gm/dL Hct (39.0-53.0) % Plt Count (150-450) k/uL Neutrophils # (1.3-7.7) k/uL Lymphocytes # (1.0-4.8) k/uL Monocytes # (0-1.0) k/uL APTT (22.0-30.0) sec ABG pH (7.35-7.45) ABG pCO2 (35-45) mmHg ABG pO2 (83-108) mmHg ABG Total CO2 (19-24) mmol/L ABG O2 Saturation (94-97) % ABG Hematocrit (34.0-46.0) % ABG Potassium (3.4-4.5) mmol/L ABG Ionized Calcium (4.5-5.3) mg/dL ABG Glucose (75-99) mg/dL ABG Lactic Acid (0.5-1.6) mmol/L Hemoglobin (13.0-17.5) gm/dL Chloride (98-107) mmol/L BUN (9-20) mg/dL Glucose (74-99) mg/dL POC Glucose (mg/dL) 137 H 142 H 159 H (75-99) mg/dL Calcium (8.4-10.2) mg/dL Magnesium (1.6-2.3) mg/dL Total Protein (6.3-8.2) g/dL Albumin (3.5-5.0) g/dL Arterial Blood Potassium (3.4-4.5) mmol/L Arterial Blood Glucose (75-99) mg/dL Crossmatch 03/04/21 03/04/21 03/04/21 Range/Units 18:00 18:50 19:49 WBC 27.7 H (3.8-10.6) k/uL RBC (4.30-5.90) m/uL Hgb (13.0-17.5) gm/dL Hct 36.5 L (39.0-53.0) % Plt Count (150-450) k/uL Neutrophils # 25.4 H (1.3-7.7) k/uL Lymphocytes # 0.8 L (1.0-4.8) k/uL Monocytes # 1.3 H (0-1.0) k/uL APTT (22.0-30.0) sec ABG pH (7.35-7.45) ABG pCO2 (35-45) mmHg ABG pO2 123 H (83-108) mmHg ABG Total CO2 25 H (19-24) mmol/L ABG O2 Saturation 99.0 H (94-97) % ABG Hematocrit (34.0-46.0) % ABG Potassium (3.4-4.5) mmol/L ABG Ionized Calcium (4.5-5.3) mg/dL ABG Glucose (75-99) mg/dL ABG Lactic Acid (0.5-1.6) mmol/L Hemoglobin (13.0-17.5) gm/dL Chloride (98-107) mmol/L BUN (9-20) mg/dL Glucose (74-99) mg/dL POC Glucose (mg/dL) 170 H (75-99) mg/dL Calcium (8.4-10.2) mg/dL Magnesium (1.6-2.3) mg/dL Total Protein (6.3-8.2) g/dL Albumin (3.5-5.0) g/dL Arterial Blood Potassium (3.4-4.5) mmol/L Arterial Blood Glucose (75-99) mg/dL Crossmatch 03/04/21 03/04/21 03/04/21 Range/Units 19:52 21:00 21:03 WBC 19.9 H (3.8-10.6) k/uL RBC 4.14 L (4.30-5.90) m/uL Hgb 12.4 L (13.0-17.5) gm/dL Hct 34.5 L (39.0-53.0) % Plt Count (150-450) k/uL Neutrophils # 18.5 H (1.3-7.7) k/uL Lymphocytes # 0.5 L (1.0-4.8) k/uL Monocytes # (0-1.0) k/uL APTT (22.0-30.0) sec ABG pH (7.35-7.45) ABG pCO2 (35-45) mmHg ABG pO2 (83-108) mmHg ABG Total CO2 (19-24) mmol/L ABG O2 Saturation (94-97) % ABG Hematocrit (34.0-46.0) % ABG Potassium (3.4-4.5) mmol/L ABG Ionized Calcium (4.5-5.3) mg/dL ABG Glucose (75-99) mg/dL ABG Lactic Acid (0.5-1.6) mmol/L Hemoglobin (13.0-17.5) gm/dL Chloride (98-107) mmol/L BUN (9-20) mg/dL Glucose (74-99) mg/dL POC Glucose (mg/dL) 175 H 159 H (75-99) mg/dL Calcium (8.4-10.2) mg/dL Magnesium (1.6-2.3) mg/dL Total Protein (6.3-8.2) g/dL Albumin (3.5-5.0) g/dL Arterial Blood Potassium (3.4-4.5) mmol/L Arterial Blood Glucose (75-99) mg/dL Crossmatch 03/04/21 03/04/21 03/05/21 Range/Units 22:05 23:03 00:05 WBC (3.8-10.6) k/uL RBC (4.30-5.90) m/uL Hgb (13.0-17.5) gm/dL Hct (39.0-53.0) % Plt Count (150-450) k/uL Neutrophils # (1.3-7.7) k/uL Lymphocytes # (1.0-4.8) k/uL Monocytes # (0-1.0) k/uL APTT (22.0-30.0) sec ABG pH (7.35-7.45) ABG pCO2 (35-45) mmHg ABG pO2 (83-108) mmHg ABG Total CO2 (19-24) mmol/L ABG O2 Saturation (94-97) % ABG Hematocrit (34.0-46.0) % ABG Potassium (3.4-4.5) mmol/L ABG Ionized Calcium (4.5-5.3) mg/dL ABG Glucose (75-99) mg/dL ABG Lactic Acid (0.5-1.6) mmol/L Hemoglobin (13.0-17.5) gm/dL Chloride (98-107) mmol/L BUN (9-20) mg/dL Glucose (74-99) mg/dL POC Glucose (mg/dL) 148 H 140 H 141 H (75-99) mg/dL Calcium (8.4-10.2) mg/dL Magnesium (1.6-2.3) mg/dL Total Protein (6.3-8.2) g/dL Albumin (3.5-5.0) g/dL Arterial Blood Potassium (3.4-4.5) mmol/L Arterial Blood Glucose (75-99) mg/dL Crossmatch 03/05/21 03/05/21 03/05/21 Range/Units 01:04 02:51 04:15 WBC 18.1 H (3.8-10.6) k/uL RBC 3.93 L (4.30-5.90) m/uL Hgb 11.7 L (13.0-17.5) gm/dL Hct 32.6 L (39.0-53.0) % Plt Count (150-450) k/uL Neutrophils # 16.0 H (1.3-7.7) k/uL Lymphocytes # 0.9 L (1.0-4.8) k/uL Monocytes # (0-1.0) k/uL APTT (22.0-30.0) sec ABG pH (7.35-7.45) ABG pCO2 (35-45) mmHg ABG pO2 (83-108) mmHg ABG Total CO2 (19-24) mmol/L ABG O2 Saturation (94-97) % ABG Hematocrit (34.0-46.0) % ABG Potassium (3.4-4.5) mmol/L ABG Ionized Calcium (4.5-5.3) mg/dL ABG Glucose (75-99) mg/dL ABG Lactic Acid (0.5-1.6) mmol/L Hemoglobin (13.0-17.5) gm/dL Chloride (98-107) mmol/L BUN (9-20) mg/dL Glucose (74-99) mg/dL POC Glucose (mg/dL) 141 H 138 H (75-99) mg/dL Calcium (8.4-10.2) mg/dL Magnesium (1.6-2.3) mg/dL Total Protein (6.3-8.2) g/dL Albumin (3.5-5.0) g/dL Arterial Blood Potassium (3.4-4.5) mmol/L Arterial Blood Glucose (75-99) mg/dL Crossmatch 03/05/21 03/05/21 03/05/21 Range/Units 04:15 04:21 05:38 WBC (3.8-10.6) k/uL RBC (4.30-5.90) m/uL Hgb (13.0-17.5) gm/dL Hct (39.0-53.0) % Plt Count (150-450) k/uL Neutrophils # (1.3-7.7) k/uL Lymphocytes # (1.0-4.8) k/uL Monocytes # (0-1.0) k/uL APTT (22.0-30.0) sec ABG pH (7.35-7.45) ABG pCO2 (35-45) mmHg ABG pO2 (83-108) mmHg ABG Total CO2 (19-24) mmol/L ABG O2 Saturation (94-97) % ABG Hematocrit (34.0-46.0) % ABG Potassium (3.4-4.5) mmol/L ABG Ionized Calcium (4.5-5.3) mg/dL ABG Glucose (75-99) mg/dL ABG Lactic Acid (0.5-1.6) mmol/L Hemoglobin (13.0-17.5) gm/dL Chloride 108 H (98-107) mmol/L BUN (9-20) mg/dL Glucose 124 H (74-99) mg/dL POC Glucose (mg/dL) 126 H 128 H (75-99) mg/dL Calcium 8.2 L (8.4-10.2) mg/dL Magnesium (1.6-2.3) mg/dL Total Protein 4.8 L (6.3-8.2) g/dL Albumin 2.8 L (3.5-5.0) g/dL Arterial Blood Potassium (3.4-4.5) mmol/L Arterial Blood Glucose (75-99) mg/dL Crossmatch 03/05/21 03/05/21 03/05/21 Range/Units 06:54 07:56 09:09 WBC (3.8-10.6) k/uL RBC (4.30-5.90) m/uL Hgb (13.0-17.5) gm/dL Hct (39.0-53.0) % Plt Count (150-450) k/uL Neutrophils # (1.3-7.7) k/uL Lymphocytes # (1.0-4.8) k/uL Monocytes # (0-1.0) k/uL APTT (22.0-30.0) sec ABG pH (7.35-7.45) ABG pCO2 (35-45) mmHg ABG pO2 (83-108) mmHg ABG Total CO2 (19-24) mmol/L ABG O2 Saturation (94-97) % ABG Hematocrit (34.0-46.0) % ABG Potassium (3.4-4.5) mmol/L ABG Ionized Calcium (4.5-5.3) mg/dL ABG Glucose (75-99) mg/dL ABG Lactic Acid (0.5-1.6) mmol/L Hemoglobin (13.0-17.5) gm/dL Chloride (98-107) mmol/L BUN (9-20) mg/dL Glucose (74-99) mg/dL POC Glucose (mg/dL) 123 H 162 H 155 H (75-99) mg/dL Calcium (8.4-10.2) mg/dL Magnesium (1.6-2.3) mg/dL Total Protein (6.3-8.2) g/dL Albumin (3.5-5.0) g/dL Arterial Blood Potassium (3.4-4.5) mmol/L Arterial Blood Glucose (75-99) mg/dL Crossmatch Assessment and Plan Assessment: 1. Unicuspid aortic valve with severe aortic valve regurgitation, status post aortic valve replacement using a 25 mm On-X mechanical valve 2. Moderate left anterior dysfunction, moderate aortic root and ascending aortic dilation with bovine arch, status post selective non-coronary sinus replacement along with ascending aortic replacement using a 32 mm gel weave straight graft 3. Mild mitral valve regurgitation 4. History of hypertension 5. History of acute systolic heart failure 6. History of kidney stones 7. History of bronchitis 8. Obesity with a BMI of 32.6 kg/m 9. History of chronic hypersomnia and possible sleep apnea syndrome 10. Preoperative nasal swab positive for MSSA, treated preoperatively with mupirocin 11. Postoperative acute blood loss anemia, expected due to hemodilution and cardiopulmonary bypass Plan: 1. Continue aspirin, Plavix, statin, and beta ben. Will increase meto prolol tartrate 25 mg by mouth twice a day. 2. Decrease Primacor drip to 0.1 mcg/kg/m. Were weaned off this afternoon if his cardiac index remains greater than or equal to 2.4 3. Wean O2 as tolerated. Encourage incentive spirometry use 10 times every hour while awake. Bronchodilators per pulmonology 3. Increase activity, ambulate as tolerated. PT/OT/cardiac rehab consulted. 4. Will monitor daily labs and chest x-rays. Electrolyte replacement per protocol. 5. GI/DVT prophylaxis 6. Insulin management per primary care service. Patient is not diabetic, preoperative hemoglobin A1c 5.2%. 7. Pain controlled with current medication regimen. Toradol was added for additional pain control. 8. Discontinue Stoutland once his Primacor has been weaned off. Connect Cordis to continuous CVP monitoring. 9. Will continue mediastinal chest tubes, and arterial line for another 24 hours. 10. Will continue Garcia catheter for another 24 hours for strict accurate intake and output. Daily weights 11. Lasix 20 mg IV 1 now. 12. Calcium gluconate 1 g IV piggyback 1 now. 13. Keep atrial and ventricular epicardial pacemaker wires in place connected to a VVI backup at 50 BPM. Anticipate removal of his epicardial pacemaker wires in the next 24 hours. 14. Once his pacemaker wires have been removed, he will be started on Coumadin for anticoagulation. Goal INR range of 2-3 for the first 3 months after his valve surgery and a goal range of 1.5-2 thereafter. 14. More recommendations to follow based on patient's progress. Time with Patient: Greater than 30
[2021-03-05 11:04] LABS: Glucose,Whole Blood 95 mg/dL (75-99)
[2021-03-05] MEDS: MUPIROCIN 2% OINT 22 GM TUBE TOPICAL SCH ×2 (11:11→20:30)
[2021-03-05] MEDS: LACTATED RINGERS 1,000 ML IV SCH (11:15)
[2021-03-05] MEDS ORDERED: FUROSEMIDE 10 MG/ML 2 ML VIAL IV STA (11:24)
[2021-03-05 12:06] LABS: Glucose,Whole Blood 108 mg/dL (75-99)
--- NOTE | 2021-03-05 12:27 | P.CRDCN ---
History of Present Illness Consult date: 03/05/21 History of present illness: HISTORY OF PRESENT ILLNESS: This is a 51-year-old male with a past medical history significant for bronchitis, kidney stones, heart failure, and hypertension. Patient follows in the office with Dr. Hua. We have been asked to see the patient in consultation for cardiac management. Patient is s/p aortic valve replacement using a 25 mm On-X mechanical valve. Selective non-coronary sinus replacement along with ascending aortic replacement using a 32 mm gel weave straight graft. Exclusion of the left atrial appendage using a 35 mm Atriclip. Intraoperative transesophageal echocardiogram and epi-aortic scanning. Postop day #1. Patient examined in the intensive care unit. Patient has been asked.. Patient is sitting up in the chair. Telemetry reveals sinus mechanism. Vital signs are stable. Patient has Primacor infusion running. Patient is using his incentive spirometer and pulling 1500 mL. Chest xray improving aeration left lower lobe persistent discoid atelectasis Laboratory data: WBC 18.1. Hemoglobin 11.7. Platelet count 178. Sodium 138. Potassium 4.7. BUN 9. Creatinine 0.81. Magnesium 2.0. Current home cardiac medications include lisinopril 10 mg twice a day, metoprolol succinate 25 mg daily, Lasix 40 mg daily, and aspirin 324 mg daily Patient underwent cardiac catheterization on 01/04/2021 revealing normal coronary arteries Echocardiogram dated in December 2020 revealed moderate global hypokinesis of LV, ejection fraction 30-35%, severe aortic regurgitation, mild mitral regurgi tation, and mild tricuspid regurgitation with moderate pulmonary hypertension REVIEW OF SYSTEMS: At the time of my exam: CONSTITUTIONAL: Denies fever or chills. HEENT: Denies blurred vision, vision changes, or eye pain. Denies hemoptysis CARDIOVASCULAR: Denies chest pain. Denies orthopnea. Denies PND. Denies palpitations RESPIRATORY: Denies shortness of breath. GASTROINTESTINAL: Denies abdominal pain. Denies nausea or vomiting. HEMATOLOGIC: Denies bleeding disorders. GENITOURINARY: Denies any blood in urine. SKIN: Denies pruitis. Denies rash. PHYSICAL EXAM: VITAL SIGNS: Reviewed. GENERAL: Well-developed in no acute distress. HEENT: Head is normocephalic. Pupils are equal, round. Sclerae anicteric. Mucous membranes of the mouth are moist. Neck supple. No JVD or thyromegaly LUNGS: Respirations even and unlabored. Lungs diminished bilaterally. HEART: Regular rate and rhythm. S1 and S2 heard. Dressing to sternum clean dry and intact. ABDOMEN: Soft. Nondistended. Nontender. EXTREMITIES: Normal range of motion. No clubbing or cyanosis. Peripheral pulses intact. No lower extremity edema NEUROLOGIC: Awake and alert. Oriented x 3. ASSESSMENT: Unicuspid aortic valve with severe aortic valve regurgitation, status post aortic valve replacement with mechanical valve Moderate left anterior dysfunction, moderate aortic root and ascending aortic dilation with bovine arch, status post selective non-coronary sinus replacement along with ascending aortic replacement History of hypertension History of systolic heart failure Postoperative acute blood loss anemia PLAN: Continue postoperative management per CTS Continue current cardiac medications Increase activity as tolerated Continue to encourage use of incentive spirometer Further recommendations pending patient course Nurse practitioner note has been reviewed by physician. Signing provider agrees with the documented findings, assessment, and plan of care. Past Medical History Past Medical History: Hypertension Additional Past Medical History / Comment(s): kidney stones; possible CHRIS- patient was seen by pulmonology in 03/2019 but didn't follow up with testing for CHRIS,was having SOB w/ exertion,is better. Recently passed Kidney stone on 02-13-21. History of Any Multi-Drug Resistant Organisms: None Reported Past Surgical History: Appendectomy, Heart Catheterization Additional Past Surgical History / Comment(s): kidney stones procedure,YOVANY Past Anesthesia/Blood Transfusion Reactions: Postoperative Nausea & Vomiting (PONV) Smoking Status: Former smoker - Past Family History Mother Family Medical History: Cancer Additional Family Medical History / Comment(s): still alive at 78 y/o Father Family Medical History: CVA/TIA Additional Family Medical History / Comment(s): at 86 y/o Medications and Allergies Home Medications Medication Instructions Recorded Confirmed Type buPROPion HCL [buPROPion HCL SR] 150 mg PO BID 12/26/20 03/04/21 History Furosemide [Lasix] 40 mg PO DAILY #90 tab 01/01/21 03/04/21 Rx Metoprolol Succinate (ER) [Toprol 25 mg PO DAILY tab.er.24h 01/01/21 03/04/21 Rx XL] lisinopriL [Zestril] 10 mg PO BID #180 tab 01/01/21 03/04/21 Rx Mupirocin [Mupirocin 2%] 1 applic TOPICAL BID #1 tube 02/18/21 03/04/21 Rx Aspirin 324 mg PO DAILY 03/04/21 03/04/21 History Allergies Allergy/AdvReac Type Severity Reaction Status Date / Time Iodinated Contrast Media AdvReac Severe Vomiting Verified 03/04/21 05:57 Physical Exam Vitals: Vital Signs Temp Pulse Pulse Resp BP Pulse Ox 03/05/21 12:15 87 03/05/21 12:07 87 03/05/21 12:00 98.0 F 86 12 99 03/05/21 11:30 83 15 97 03/05/21 11:00 82 25 H 98 03/05/21 10:30 80 11 L 98 03/05/21 10:00 81 14 97 03/05/21 09:30 83 10 L 97 03/05/21 09:00 88 12 97 03/05/21 08:30 85 12 97 03/05/21 08:00 97.9 F 88 12 96 03/05/21 07:42 90 03/05/21 07:33 80 97 03/05/21 07:30 89 23 99 03/05/21 07:00 84 10 L 98 03/05/21 06:30 85 12 99 03/05/21 06:00 81 12 98 03/05/21 05:30 87 22 96 03/05/21 05:00 92 21 96 03/05/21 04:30 94 14 98 03/05/21 04:00 99.3 F 94 17 97 03/05/21 03:30 92 12 97 03/05/21 03:00 93 18 96 03/05/21 02:30 95 20 97 03/05/21 02:00 96 11 L 96 03/05/21 01:30 96 12 96 03/05/21 01:00 98 17 98 03/05/21 00:30 98 12 102/67 97 03/05/21 00:00 98.8 F 100 16 96 03/04/21 23:30 98 14 100/68 97 03/04/21 23:00 98 17 97 03/04/21 22:30 99 19 99/62 97 03/04/21 22:00 100 16 96 03/04/21 21:30 98 14 91/65 97 03/04/21 21:00 98 17 96 03/04/21 20:30 99 24 102/74 96 03/04/21 20:00 99.0 F 92 7 L 98 03/04/21 19:50 92 03/04/21 19:30 98 8 L 101/64 96 03/04/21 19:00 98 11 L 96 03/04/21 18:30 101 H 10 L 92/60 96 03/04/21 18:00 98 15 97 03/04/21 17:30 104 H 19 97 03/04/21 17:00 95 20 100 03/04/21 16:30 96 21 100 03/04/21 16:21 92 03/04/21 16:10 92 03/04/21 16:00 98.8 F 92 23 97 03/04/21 15:45 89 22 100 03/04/21 15:30 90 78 20 100 03/04/21 15:16 85 15 Intake and Output 03/04/21 03/05/21 03/05/21 22:59 06:59 14:59 Intake Total 991.726 1487.578 787.306 Output Total 1525 565 595 Balance -855.716 857.578 192.306 Intake: IV 563 672 424 ACETAMINOPHEN IV (For NPO 100 ) 1,000 mg In Empty Bag 1 bag @ 400 mls/hr IVPB Q6HR SWATI Rx#:[id number] CARDIAC OUTPUT 100 60 90 Lactated Ringers 1,000 ml 400 390 180 @ 20 mls/hr IV .Q24H SWATI Rx#:[id number] Pressure Bag 0.9 Sodium 63 72 54 Chloride ceFAZolin 2 gm In Sodium 50 100 Chloride 0.9% 50 ml @ 100 mls/hr IVPB Q8HR SWATI Rx# :[id number] Intake, IV Titration 106.284 30.578 123.306 Amount Calcium Gluconate 1 gm In 100 Sodium Chloride 0.9% 100 ml @ 100 mls/hr IVPB ONCE ONE Rx#:[id number] Clevidipine Butyrate 25 48.067 mg In Empty Bag 1 bag @ 1 MG/HR 2 mls/hr IV .Q24H SWATI Rx#:[id number] Insulin Regular 100 unit 15.696 30.578 23.306 In Sodium Chloride 0.9% 100 ml @ Per Protocol IV .Q0M SWATI Rx#:[id number] Milrinone-D5w Pmx 20 mg 9.779 In Dextrose/Water 1 100ml .bag @ Per Protocol IV . Q0M SWATI Rx#:[id number] propofoL 1,000 mg In 32.742 Empty Bag 1 bag @ Titrate IV .Q0M SWATI Rx#: [id number] Oral 720 Tube Feeding 240 Output: Chest Tube Drainage 290 110 125 Mediastinal 290 110 125 Urine 1235 455 470 Other: Voiding Method Indwelling Catheter Indwelling Catheter Weight 118.3 kg 118.3 kg ABP, PAP, CO, CI - Last 8 Hours Arterial Blood Pressure 121/69 Arterial Blood Pressure 124/56 Arterial Blood Pressure 121/50 Arterial Blood Pressure 126/55 Arterial Blood Pressure 125/51 Arterial Blood Pressure 128/49 Arterial Blood Pressure 149/52 Arterial Blood Pressure 137/53 Arterial Blood Pressure 142/54 Arterial Blood Pressure 142/53 Arterial Blood Pressure 126/51 Arterial Blood Pressure 122/49 Arterial Blood Pressure 119/50 Arterial Blood Pressure 104/50 Arterial Blood Pressure 121/52 Arterial Blood Pressure 114/66 Pulmonary Artery Pressure 32/15 Pulmonary Artery Pressure 26/8 Pulmonary Artery Pressure 20/4 Pulmonary Artery Pressure 25/7 Pulmonary Artery Pressure 16/8 Pulmonary Artery Pressure 18/6 Pulmonary Artery Pressure 18/5 Pulmonary Artery Pressure 16/3 Pulmonary Artery Pressure 17/6 Pulmonary Artery Pressure 20/9 Pulmonary Artery Pressure 15/3 Pulmonary Artery Pressure 15/4 Pulmonary Artery Pressure 12/4 Pulmonary Artery Pressure 11/5 Pulmonary Artery Pressure 23/15 Pulmonary Artery Pressure 28/19 Cardiac Output 5.6 Cardiac Output 7.9 Cardiac Output 6.3 Cardiac Output 8.6 Cardiac Index 2.3 Cardiac Index 3.3 Cardiac Index 2.6 Cardiac Index 3.5 Cardiac Index 3.5 Results 03/05/21 04:15 03/05/21 04:15 Cardiac Enzymes 03/04/21 03/05/21 Range/Units 15:15 04:15 AST 38 56 (17-59) U/L Coagulation 03/04/21 Range/Units 15:15 PT 11.7 (9.0-12.0) sec APTT 35.7 H (22.0-30.0) sec CBC 03/04/21 03/04/21 03/04/21 Range/Units 15:15 18:00 21:00 WBC 9.4 27.7 H 19.9 H (3.8-10.6) k/uL RBC 3.80 L 4.36 4.14 L (4.30-5.90) m/uL Hgb 11.2 L D 13.0 12.4 L (13.0-17.5) gm/dL Hct 32.0 L 36.5 L 34.5 L (39.0-53.0) % Plt Count 131 L 224 182 (150-450) k/uL 03/05/21 Range/Units 04:15 WBC 18.1 H (3.8-10.6) k/uL RBC 3.93 L (4.30-5.90) m/uL Hgb 11.7 L (13.0-17.5) gm/dL Hct 32.6 L (39.0-53.0) % Plt Count 178 (150-450) k/uL Comprehensive Metabolic Panel 03/04/21 03/05/21 Range/Units 15:15 04:15 Sodium 140 138 (137-145) mmol/L Potassium 3.9 4.7 (3.5-5.1) mmol/L Chloride 112 H 108 H (98-107) mmol/L Carbon Dioxide 22 28 (22-30) mmol/L BUN 7 L 9 (9-20) mg/dL Creatinine 0.76 0.81 (0.66-1.25) mg/dL Glucose 95 124 H (74-99) mg/dL Calcium 8.0 L 8.2 L (8.4-10.2) mg/dL AST 38 56 (17-59) U/L ALT 16 19 (4-49) U/L Alkaline Phosphatase 41 46 (38-126) U/L Total Protein 4.1 L 4.8 L (6.3-8.2) g/dL Albumin 2.3 L 2.8 L (3.5-5.0) g/dL Current Medications Generic Name Dose Route Start Last Admin Trade Name Freq PRN Reason Stop Dose Admin Hydrocodone Bitart/Acetaminophen 2 each 03/05/21 03:07 03/05/21 11:10 Hydrocodone/Apap 5-325mg 1 Each Tab PO 2 each Q4HR PRN Administration Severe Pain Hydrocodone Bitart/Acetaminophen 1 each 03/05/21 03:07 03/05/21 02:39 Hydrocodone/Apap 5-325mg 1 Each Tab PO 1 each Q4HR PRN Administration Moderate Pain Albuterol/Ipratropium 3 ml 03/04/21 15:30 Ipratropium-Albuterol 3 Ml Neb INHALATION RT-Q2H PRN Shortness Of Breath Or Wheezing Albuterol/Ipratropium 3 ml 03/05/21 08:00 03/05/21 11:42 Ipratropium-Albuterol 3 Ml Neb INHALATION 3 ml RT-QID SWATI Administration Aspirin 325 mg 03/05/21 09:00 03/05/21 08:09 Aspirin 325 Mg Tab PO 325 mg DAILY SWATI Administration Atorvastatin Calcium 40 mg 03/05/21 09:00 03/05/21 08:09 Atorvastatin 40 Mg Tab PO 40 mg DAILY SWATI Administration Benzocaine/Menthol 1 each 03/04/21 15:30 Benzocaine/Menthol Lozeng 1 Each Lozenge MUCOUS MEM Q2H PRN Sore Throat Bisacodyl 10 mg 03/05/21 09:00 Bisacodyl 10 Mg Supp RECTAL DAILY PRN Constipation Clopidogrel Bisulfate 75 mg 03/05/21 09:00 03/05/21 08:09 Clopidogrel 75 Mg Tab PO 75 mg DAILY SWATI Administration Heparin Sodium (Porcine) 5,000 unit 03/04/21 16:00 03/05/21 08:09 Heparin Sodium,Porcine/Pf 5,000 Unit/0.5 Ml Syringe SQ 5,000 unit Q8HR SWATI Administration Insulin Human Regular 100 unit 101 mls @ 0 mls/hr 03/04/21 15:30 03/05/21 09:55 / Sodium Chloride IV 3.5 unit/hr .Q0M SWATI 3.535 mls/hr Titration Protocol Per Protocol Amiodarone HCl 150 mg/ 103 mls @ 618 mls/hr 03/04/21 15:50 Dextrose/Water IV .Q10M PRN A.FIB/FLUTTER Protocol Amiodarone HCl 360 mg/ 207.2 mls @ 34.533 mls/hr 03/04/21 15:30 Dextrose/Water IV .Q6H PRN A.FIB/FLUTTER Protocol 1 MG/MIN Amiodarone HCl 450 mg/ 250 mls @ 16.667 mls/hr 03/04/21 21:00 Dextrose/Water IV .Q15H PRN A.FIB/FLUTTER Protocol 0.5 MG/MIN Albumin Human 250 ml/ IV 250 mls @ 250 mls/hr 03/04/21 15:30 03/05/21 05:59 Solution IVPB 03/06/21 15:31 250 mls/hr Q1HR PRN Administration For Volume Lactated Ringer's 1,000 mls @ 20 mls/hr 03/04/21 15:30 03/05/21 11:15 Lactated Ringers IV 20 mls/hr .Q24H SWATI Administration Calcium Gluconate 2 gm/ Sodium 120 mls @ 100 mls/hr 03/04/21 16:00 Chloride IVPB 03/11/21 23:00 ONCE PRN Ionized Calcium less than 4.4 Ketorolac Tromethamine 15 mg 03/04/21 18:00 03/05/21 11:10 Ketorolac 15 Mg/Ml 1 Ml Vial IVP 03/07/21 16:54 15 mg Q6HR SWATI Administration Magnesium Hydroxide 2,400 mg 03/05/21 09:00 Magnesium Hydroxide 2,400 Mg/10 Ml Cup PO BID PRN Constipation Metoclopramide HCl 10 mg 03/04/21 15:30 03/05/21 07:05 Metoclopramide 5 Mg/Ml 2 Ml Vial IVP 10 mg Q4H PRN Administration Nausea And Vomiting Metoprolol Tartrate 25 mg 03/05/21 09:00 03/05/21 08:09 Metoprolol Tartrate 25 Mg Tab PO 25 mg BID SWATI Administration Miscellaneous Information 1 each 03/04/21 15:30 Potassium Replacement Protocol 1 Each Misc MISCELLANE DAILY PRN Per Protocol Protocol Miscellaneous Information 1 each 03/04/21 15:30 Magnesium Replacement Protocol 1 Each Misc MISCELLANE DAILY PRN Per Protocol Protocol Miscellaneous Information 1 each 03/04/21 15:30 Phosphorus Replacement Protoco 1 Each Misc MISCELLANE DAILY PRN Per Protocol Protocol Mupirocin 1 applic 03/05/21 10:15 03/05/21 11:11 Mupirocin 2% Oint 22 Gm Tube TOPICAL 1 applic BID SWATI Administration Ondansetron HCl 4 mg 03/04/21 15:30 03/05/21 05:24 Ondansetron 4 Mg/2 Ml Vial IVP 4 mg Q6HR PRN Administration Nausea And Vomiting Pantoprazole Sodium 40 mg 03/05/21 09:00 03/05/21 08:10 Pantoprazole 40 Mg/10 Ml Vial IVP 40 mg DAILY SWATI Administration Senna/Docusate Sodium 2 each 03/05/21 21:00 Sennosides-Docusate Sodium 1 Each Tab PO HS SWATI Sodium Chloride 10 ml 03/04/21 21:00 03/05/21 08:10 Sodium Chloride 0.9% Flush 10 Ml Syringe IV 10 ml BID SWATI Administration Intake and Output 03/04/21 03/05/21 03/05/21 22:59 06:59 14:59 Intake Total 987.512 9102.578 787.306 Output Total 1525 565 595 Balance -855.716 857.578 192.306 Intake: IV 563 672 424 ACETAMINOPHEN IV (For NPO 100 ) 1,000 mg In Empty Bag 1 bag @ 400 mls/hr IVPB Q6HR SWATI Rx#:[id number] CARDIAC OUTPUT 100 60 90 Lactated Ringers 1,000 ml 400 390 180 @ 20 mls/hr IV .Q24H SWATI Rx#:[id number] Pressure Bag 0.9 Sodium 63 72 54 Chloride ceFAZolin 2 gm In Sodium 50 100 Chloride 0.9% 50 ml @ 100 mls/hr IVPB Q8HR SWATI Rx# :[id number] Intake, IV Titration 106.284 30.578 123.306 Amount Calcium Gluconate 1 gm In 100 Sodium Chloride 0.9% 100 ml @ 100 mls/hr IVPB ONCE ONE Rx#:[id number] Clevidipine Butyrate 25 48.067 mg In Empty Bag 1 bag @ 1 MG/HR 2 mls/hr IV .Q24H SWATI Rx#:[id number] Insulin Regular 100 unit 15.696 30.578 23.306 In Sodium Chloride 0.9% 100 ml @ Per Protocol IV .Q0M SWATI Rx#:[id number] Milrinone-D5w Pmx 20 mg 9.779 In Dextrose/Water 1 100ml .bag @ Per Protocol IV . Q0M SWATI Rx#:[id number] propofoL 1,000 mg In 32.742 Empty Bag 1 bag @ Titrate IV .Q0M SWATI Rx#: [id number] Oral 720 Tube Feeding 240 Output: Chest Tube Drainage 290 110 125 Mediastinal 290 110 125 Urine 1235 455 470 Other: Voiding Method Indwelling Catheter Indwelling Catheter Weight 118.3 kg 118.3 kg Patient Weight 03/06/21 06:59 Weight 118.3 kg 03/05/21 04:15 03/05/21 04:15
[2021-03-05 13:04] LABS: Glucose,Whole Blood 155 mg/dL (75-99)
[2021-03-05 13:59] LABS: Glucose,Whole Blood 153 mg/dL (75-99)
[2021-03-05 15:09] LABS: Glucose,Whole Blood 104 mg/dL (75-99)
[2021-03-05 15:58] LABS: Glucose,Whole Blood 128 mg/dL (75-99)
[2021-03-05] MEDS ORDERED: fentaNYL (PF) 50 MCG/ML 2 ML AMP IVP ONE (16:25)
[2021-03-05 17:00] LABS: Glucose,Whole Blood 115 mg/dL (75-99)
[2021-03-05] MEDS: BENZOCAINE/MENTHOL LOZENG 1 EACH LOZENGE MUCOUS MEM PRN (18:01)
[2021-03-05 18:18] LABS: Glucose,Whole Blood 127 mg/dL (75-99)
[2021-03-05] MEDS: HYDROcodone/APAP 7.5-325MG 1 EACH TAB PO PRN ×2 (18:55→23:12)
[2021-03-05 19:45] LABS: Glucose,Whole Blood 150 mg/dL (75-99)
[2021-03-05] MEDS: SENNOSIDES-DOCUSATE SODIUM 1 EACH TAB PO SCH (20:30)
[2021-03-05 21:10] LABS: Glucose,Whole Blood 123 mg/dL (75-99)
[2021-03-05 23:09] LABS: Glucose,Whole Blood 138 mg/dL (75-99)
[2021-03-06] MEDS: INSULIN REGULAR 100 UNIT in SODIUM CHLORIDE 0.9% 100 ML IV SCH (00:07)
[2021-03-06 00:08] LABS: Glucose,Whole Blood 129 mg/dL (75-99)
[2021-03-06 01:07] LABS: Glucose,Whole Blood 120 mg/dL (75-99)
[2021-03-06 03:01] LABS: Glucose,Whole Blood 118 mg/dL (75-99)
[2021-03-06] MEDS: HYDROcodone/APAP 7.5-325MG 1 EACH TAB PO PRN ×2 (03:03→22:08)
[2021-03-06 03:56] LABS: Glucose,Whole Blood 138 mg/dL (75-99)
[2021-03-06 04:29] LABS: Basophils % (A) 0 %; Eosinophils # (A) 0.1 k/uL (0-0.7); Eosinophils % (A) 1 %; HCT 30.5 % (39.0-53.0); HGB 10.8 gm/dL (13.0-17.5); Ionized Calcium 4.9 mg/dL (4.5-5.3); Lymphocytes # (A) 1.2 k/uL (1.0-4.8); Lymphocytes % (A) 7 %; MCH 29.7 pg (25.0-35.0); MCHC 35.3 g/dL (31.0-37.0); MCV 84.2 fL (80.0-100.0); Mean Platelet Volume 7.1; Monocytes # (A) 1.4 k/uL (0-1.0); Monocytes % (A) 8 %; Neutrophils # (A) 14.4 k/uL (1.3-7.7); Neutrophils % (A) 83 %; Platelet Count 158 k/uL (150-450); RBC 3.63 m/uL (4.30-5.90); RDW 14.1 % (11.5-15.5); WBC 17.3 k/uL (3.8-10.6)
[2021-03-06 04:53] LABS: ALT 14 U/L (4-49); AST 36 U/L (17-59); African American GFR (CKD) >90 (>60 ml/min/1.73 sqM); Albumin 2.9 g/dL (3.5-5.0); Alkaline Phosphatase 44 U/L (38-126); Anion Gap 1 mmol/L; Blood Urea Nitrogen 12 mg/dL (9-20); Calcium 8.2 mg/dL (8.4-10.2); Carbon Dioxide 29 mmol/L (22-30); Chloride 104 mmol/L (98-107); Glucose 125 mg/dL (74-99); Non-African American GFR(CKD) >90 (>60 ml/min/1.73 sqM); Potassium 4.2 mmol/L (3.5-5.1); Sodium 134 mmol/L (137-145); Total Bilirubin 1.3 mg/dL (0.2-1.3)
[2021-03-06 05:41] LABS: Glucose,Whole Blood 120 mg/dL (75-99)
[2021-03-06] MEDS: KETOROLAC 15 MG/ML 1 ML VIAL IVP SCH ×4 (05:43→23:37)
[2021-03-06] MEDS ORDERED: BENZOCAINE/MENTHOL LOZENG 1 EACH LOZENGE MUCOUS MEM PRN (06:00)
[2021-03-06] MEDS: BENZOCAINE/MENTHOL LOZENG 1 EACH LOZENGE MUCOUS MEM PRN (06:31)
[2021-03-06 06:32] LABS: Glucose,Whole Blood 117 mg/dL (75-99)
[2021-03-06] MEDS: IPRATROPIUM-ALBUTEROL 3 ML NEB INHALATION SCH ×4 (07:46→20:32)
--- NOTE | 2021-03-06 07:57 | XR ---
EXAMINATION TYPE: XR chest 1V portable DATE OF EXAM: 03/06/2021 COMPARISON: 03/05/2021 INDICATION: Postop cardiac surgery TECHNIQUE: Single frontal view of the chest is obtained. FINDINGS: The heart size is large. The pulmonary vasculature is normal. Mild left lower lobe infiltrate and small left pleural effusion may have developed. Mediastinal tubes remain present. Sternotomy wires from recent CABG are evident. Sheath remains prese nt on the right. The Wind[place]-Calixot catheter is been removed. No pneumothorax is evident. IMPRESSION: 1. Developing cardiomegaly with left lower lobe infiltrate and/or pleural effusion. 2. Lines and catheters discussed above.
[2021-03-06 08:19] LABS: Glucose,Whole Blood 152 mg/dL (75-99)
--- NOTE | 2021-03-06 08:38 | P.PN ---
Subjective Progress Note Date: 03/06/21 Principal diagnosis: Unicuspid aortic valve with severe aortic valve regurgitation, moderate left anterior dysfunction, moderate root and ascending dilation with bovine arch, and mild mitral valve regurgitation. Previous medical history of hypertension, acute on chronic systolic heart failure, history of kidney stones, bronchitis, obesity, chronic hypersomnia, previous tobacco dependence, and possible sleep apnea syndrome. Preoperative nasal swab positive for MSSA. POD #2 aortic valve replacement using a 25 mm On-X mechanical valve. Selective non-coronary sinus replacement along with ascending aortic replacement using a 32 mm gel weave straight graft. Exclusion of the left atrial appendage using a 35 mm Atriclip. Intraoperative transesophageal echocardiogram and epi-aortic scanning. Postoperative acute blood loss anemia, expected due to hemodilution and card iopulmonary bypass The patient is currently sitting up in a recliner in the ICU in no acute distre ss eating breakfast. States pain is controlled on current medication regimen, denies shortness of breath. Does complain of some diaphoresis this morning, otherwise no new concerns. Remains in normal sinus rhythm and hemodynamically stable on no inotropes or pressors. Currently on 2 L nasal cannula with oxygen saturation in the mid 90s, able to achieve 1000 mL on his incentive spirometry. Mediastinal chest tube, right internal jugular Cordis, right radial arterial line all remaining present. Patient states he was ambulatory in the hallway yesterday with assist. No other new concerns. Objective - Vital Signs Vital signs: Vital Signs Temp 98.6 F 03/06/21 04:00 Pulse 95 03/06/21 07:46 Resp 15 03/06/21 07:00 BP 89/67 03/05/21 16:00 Pulse Ox 97 03/06/21 07:46 Intake & Output 03/05/21 03/06/21 03/06/21 18:59 06:59 18:59 Intake Total 1329.430 341.905 26 Output Total 1375 820 26 Balance -45.570 -478.095 0 Weight 118.3 kg 120.8 kg Intake: IV 602 312 26 CARDIAC OUTPUT 120 Lactated Ringers 1,000 ml 280 240 20 @ 20 mls/hr IV .Q24H [facility] Rx#:[id number] Pressure Bag 0.9 Sodium 102 72 6 Chloride ceFAZolin 2 gm In Sodium 100 Chloride 0.9% 50 ml @ 100 mls/hr IVPB Q8HR [facility] Rx# :[id number] Intake, IV Titration 127.430 29.905 Amount Calcium Gluconate 1 gm In 100 Sodium Chloride 0.9% 100 ml @ 100 mls/hr IVPB ONCE ONE Rx#:[id number] Insulin Regular 100 unit 27.430 29.905 In Sodium Chloride 0.9% 100 ml @ Per Protocol IV .Q0M [facility] Rx#:[id number] Oral 360 Tube Feeding 240 Output: Chest Tube Drainage 195 270 Mediastinal 195 270 Urine 1180 550 26 Other: Voiding Method Indwelling Catheter Indwelling Catheter ABP, PAP, CO, CI - Last Documented Arterial Blood Pressure 108/51 Pulmonary Artery Pressure 25/14 Cardiac Output 8.3 Cardiac Index 3.4 - Exam CONSTITUTIONAL: Appears comfortable, cooperative, no acute distress RESPIRATORY: Lungs sounds diminished bilaterally. Respirations even, nonlabored. Currently on 2 L nasal cannula with oxygen saturation 96%. Able to achieve 1000 mL on incentive spirometry. Strong cough. CARDIOVASCULAR: S1, S2 present. Regular rate and rhythm, sinus rhythm on telemetry. Sternum stable. Palpable peripheral pulses bilaterally. No edema present. No calf pain or tenderness noted. Heart hugger in place with patient demonstrating appropriate use. Antiembolism stockings, SCDs present. GASTROINTESTINAL: Abdomen soft, nontender, nondistended. Active bowel sounds present 4 quadrants. Tolerating diet. Positive flatus GENITOURINARY: Garcia present draining clear, yellow urine. Output overnight 20-30 mL per hour, 1730 mL in the last 24 hours INTEGUMENTARY: Skin is warm and dry with evidence of good perfusion. Anterior chest incision well approximated and covered with dry intact dressing. NEUROLOGIC: Cranial nerves II through XII intact MUSKULOSKELETAL: Able to move all extremities, strength equal bilaterally, gait normal PSYCHIATRIC: Alert and oriented to person place and time, appropriate affect, intact judgment and insight INVASIVE LINES AND TUBES: Mediastinal chest tubes present and connected to wall suction, no air leaks present, 190 mL serosanguineous drainage overnight, 500 mL in the last 24 hours. A/V epicardial pacemaker wires present, grounded. Right internal jugular cordis, right radial arterial line present. - Allied health notes Allied health notes reviewed: nursing - Labs CBC & Chem 7: 03/06/21 04:12 03/06/21 04:12 Labs: Abnormal Lab Results - Last 24 Hours (Table) 03/05/21 03/05/21 03/05/21 Range/Units 09:09 09:53 12:04 WBC (3.8-10.6) k/uL RBC (4.30-5.90) m/uL Hgb (13.0-17.5) gm/dL Hct (39.0-53.0) % Neutrophils # (1.3-7.7) k/uL Monocytes # (0-1.0) k/uL Sodium (137-145) mmol/L Glucose (74-99) mg/dL POC Glucose (mg/dL) 155 H 130 H 108 H (75-99) mg/dL Calcium (8.4-10.2) mg/dL Total Protein (6.3-8.2) g/dL Albumin (3.5-5.0) g/dL 03/05/21 03/05/21 03/05/21 Range/Units 13:03 13:57 15:08 WBC (3.8-10.6) k/uL RBC (4.30-5.90) m/uL Hgb (13.0-17.5) gm/dL Hct (39.0-53.0) % Neutrophils # (1.3-7.7) k/uL Monocytes # (0-1.0) k/uL Sodium (137-145) mmol/L Glucose (74-99) mg/dL POC Glucose (mg/dL) 155 H 153 H 104 H (75-99) mg/dL Calcium (8.4-10.2) mg/dL Total Protein (6.3-8.2) g/dL Albumin (3.5-5.0) g/dL 03/05/21 03/05/21 03/05/21 Range/Units 15:56 16:59 18:16 WBC (3.8-10.6) k/uL RBC (4.30-5.90) m/uL Hgb (13.0-17.5) gm/dL Hct (39.0-53.0) % Neutrophils # (1.3-7.7) k/uL Monocytes # (0-1.0) k/uL Sodium (137-145) mmol/L Glucose (74-99) mg/dL POC Glucose (mg/dL) 128 H 115 H 127 H (75-99) mg/dL Calcium (8.4-10.2) mg/dL Total Protein (6.3-8.2) g/dL Albumin (3.5-5.0) g/dL 03/05/21 03/05/21 03/05/21 Range/Units 19:43 21:09 23:08 WBC (3.8-10.6) k/uL RBC (4.30-5.90) m/uL Hgb (13.0-17.5) gm/dL Hct (39.0-53.0) % Neutrophils # (1.3-7.7) k/uL Monocytes # (0-1.0) k/uL Sodium (137-145) mmol/L Glucose (74-99) mg/dL POC Glucose (mg/dL) 150 H 123 H 138 H (75-99) mg/dL Calcium (8.4-10.2) mg/dL Total Protein (6.3-8.2) g/dL Albumin (3.5-5.0) g/dL 03/06/21 03/06/21 03/06/21 Range/Units 00:07 01:06 03:00 WBC (3.8-10.6) k/uL RBC (4.30-5.90) m/uL Hgb (13.0-17.5) gm/dL Hct (39.0-53.0) % Neutrophils # (1.3-7.7) k/uL Monocytes # (0-1.0) k/uL Sodium (137-145) mmol/L Glucose (74-99) mg/dL POC Glucose (mg/dL) 129 H 120 H 118 H (75-99) mg/dL Calcium (8.4-10.2) mg/dL Total Protein (6.3-8.2) g/dL Albumin (3.5-5.0) g/dL 03/06/21 03/06/21 03/06/21 Range/Units 03:56 04:12 04:12 WBC 17.3 H (3.8-10.6) k/uL RBC 3.63 L (4.30-5.90) m/uL Hgb 10.8 L (13.0-17.5) gm/dL Hct 30.5 L (39.0-53.0) % Neutrophils # 14.4 H (1.3-7.7) k/uL Monocytes # 1.4 H (0-1.0) k/uL Sodium 134 L (137-145) mmol/L Glucose 125 H (74-99) mg/dL POC Glucose (mg/dL) 138 H (75-99) mg/dL Calcium 8.2 L (8.4-10.2) mg/dL Total Protein 5.0 L (6.3-8.2) g/dL Albumin 2.9 L (3.5-5.0) g/dL 03/06/21 03/06/21 Range/Units 05:39 06:30 WBC (3.8-10.6) k/uL RBC (4.30-5.90) m/uL Hgb (13.0-17.5) gm/dL Hct (39.0-53.0) % Neutrophils # (1.3-7.7) k/uL Monocytes # (0-1.0) k/uL Sodium (137-145) mmol/L Glucose (74-99) mg/dL POC Glucose (mg/dL) 120 H 117 H (75-99) mg/dL Calcium (8.4-10.2) mg/dL Total Protein (6.3-8.2) g/dL Albumin (3.5-5.0) g/dL - Imaging and Cardiology Chest x-ray: report reviewed, image reviewed Assessment and Plan Assessment: 1. Unicuspid aortic valve with severe aortic valve regurgitation, status post aortic valve replacement using a 25 mm On-X mechanical valve 2. Moderate left anterior dysfunction, moderate aortic root and ascending aortic dilation with bovine arch, status post selective non-coronary sinus replacement along with ascending aortic replacement using a 32 mm gel weave straight graft 3. Mild mitral valve regurgitation 4. History of hypertension 5. History of acute on chronic systolic heart failure 6. History of kidney stones 7. History of bronchitis 8. Obesity 9. History of chronic hypersomnia and possible sleep apnea syndrome 10. Previous tobacco dependence with preoperative FEV1 77% of predicted 11. Preoperative nasal swab positive for MSSA, treated preoperatively with mupirocin 12. Postoperative acute blood loss anemia, expected due to hemodilution and cardiopulmonary bypass Plan: 1. Continue aspirin, Plavix, statin, and beta ben. Will increase beta ben therapy as tolerated 2. Wean O2 as tolerated. Encourage incentive spirometry use 10 times every hour while awake. Bronchodilators per pulmonology 3. Increase activity, ambulate as tolerated. PT/OT/cardiac rehab following 4. Will monitor daily labs including PT/INR and chest x-rays. Electrolyte replacement per protocol. 5. GI/DVT prophylaxis 6. Insulin management per primary care service. Patient is not diabetic, preoperative hemoglobin A1c 5.2%. 7. Pain control with current medication regimen. 8. Will discontinue epicardial pacemaker wires today, patient to remain on bedrest for 24 hours post wire removal 9. Will continue mediastinal chest tubes for another 24 hours. 10. Discontinue Garcia catheter this afternoon. May bladder scan and straight cathed for greater than 300 mL residual 11. Strict accurate intake and output, daily weights 12. Will start Coumadin for anticoagulation today, goal INR 2-3 the first 3 months, then 1.5-2 thereafter 13. Will start home dose Wellbutrin 14. More recommendations to follow based on patient's progress. Time with Patient: Greater than 30
[2021-03-06] MEDS: METOPROLOL TARTRATE 25 MG TAB PO SCH ×3 (08:40→21:58)
[2021-03-06] MEDS: CLOPIDOGREL 75 MG TAB PO SCH (08:40)
[2021-03-06] MEDS: ATORVASTATIN 40 MG TAB PO SCH (08:40)
[2021-03-06] MEDS: ASPIRIN 325 MG TAB PO SCH (08:40)
[2021-03-06] MEDS: PANTOPRAZOLE 40 MG/10 ML VIAL IVP SCH (08:41)
[2021-03-06] MEDS: buPROPion SR 150 MG TABLET.ER PO SCH ×2 (08:41→21:58)
[2021-03-06] MEDS: HEPARIN SODIUM,PORCINE/PF 5,000 UNIT/0.5 ML SYRINGE SQ SCH ×3 (08:41→23:37)
[2021-03-06] MEDS: MUPIROCIN 2% OINT 22 GM TUBE TOPICAL SCH ×2 (08:42→21:59)
[2021-03-06 09:01] LABS: Glucose,Whole Blood 146 mg/dL (75-99)
--- NOTE | 2021-03-06 09:21 | P.PN ---
Subjective Progress Note Date: 03/06/21 This is a 59-year-old male, who is postop day #1, status post Bent[place] procedure. 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 The patient had aortic valve replacement using a 25 mm On- X mechanical valve, selected non-coronary sinus replacement along with ascending aortic replacement using a 32 mm Gel weave straight graft, exclusion of the left atrial appendage and intraoperative transesophageal echocardiogram. Currently, the patient's doing well. He is on 4 L nasal cannula. He was extubated within 5 hours post exiting the operating room. The patient is on lactated Ringer's at 50 mL an hour, and Primacor at 0.2 mcg/kg/m. The patient is getting insulin at 3.5 units an hour. Currently, the patient appears to be doing relatively well. White count 18.1, hemoglobin 11.7, hematocrit 32.6, and platelet count normal. Sodium 138, potassium 4.7, chlorides 108, CO2 28, anion gap 2, BUN 9, creatinine 0.81. Chest x-ray shows cardiomegaly and some mild bibasilar atelectasis. The patient is seen today 03/06/2021 in follow-up in the intensive care unit. Postoperative day #2. He is currently sitting up in a chair at the bedside. Awake and alert in no acute distress. Maintaining good O2 saturation in the 90s on 2 L/m per nasal cannula. He has lactated Ringer's at 20 ML's per hour. Insulin drip at 2.5 units per hour. Chest x-ray revealing a developing cardiomegaly with left lower lobe infiltrate/effusion. Mediastinal chest tube remain present. Cordis remains present in the right. [place] removed. No pneumothorax is evident. White count 17.3. Hemoglobin 10.8. Sodium 134. Potassium 4.2. Creatinine 0.74. He is continued on bronchodilators, heparin for DVT prophylaxis. He is working well with the incentive spirometer. Pulling approximately 1000 ML's. Objective - Vital Signs Vital signs: Vital Signs Temp 98.6 F 03/06/21 04:00 Pulse 96 03/06/21 08:04 Resp 15 03/06/21 07:00 BP 89/67 03/05/21 16:00 Pulse Ox 97 03/06/21 07:46 Intake & Output 03/05/21 03/06/21 03/06/21 18:59 06:59 18:59 Intake Total 1329.430 341.905 33.491 Output Total 1375 820 26 Balance -45.570 -478.095 7.491 Weight 118.3 kg 120.8 kg Intake: IV 602 312 26 CARDIAC OUTPUT 120 Lactated Ringers 1,000 ml 280 240 20 @ 20 mls/hr IV .Q24H [facility] Rx#:[id number] Pressure Bag 0.9 Sodium 102 72 6 Chloride ceFAZolin 2 gm In Sodium 100 Chloride 0.9% 50 ml @ 100 mls/hr IVPB Q8HR [facility] Rx# :[id number] Intake, IV Titration 127.430 29.905 7.491 Amount Calcium Gluconate 1 gm In 100 Sodium Chloride 0.9% 100 ml @ 100 mls/hr IVPB ONCE ONE Rx#:[id number] Insulin Regular 100 unit 27.430 29.905 7.491 In Sodium Chloride 0.9% 100 ml @ Per Protocol IV .Q0M [facility] Rx#:[id number] Oral 360 Tube Feeding 240 Output: Chest Tube Drainage 195 270 Mediastinal 195 270 Urine 1180 550 26 Other: Voiding Method Indwelling Catheter Indwelling Catheter ABP, PAP, CO, CI - Last Documented Arterial Blood Pressure 108/51 Pulmonary Artery Pressure 25/14 Cardiac Output 8.3 Cardiac Index 3.4 - Exam GENERAL EXAM: Alert, active, pleasant 51-year-old gentleman, on 2 L nasal cannula, fairly comfortable in no apparent distress. HEAD: Normocephalic. EYES: Normal reaction of pupils, equal size. NOSE: Clear with pink turbinates. THROAT: No erythema or exudates. NECK: Right-sided cordis remains in place No masses, no JVD. CHEST: Sternal dressing dry and intact. Heart Hugger. AV pacer wires present. Grounded. LUNGS: Equal air entry with crackles in the bases left greater than right. CVS: S1 and S2 normal with no audible murmur, regular rhythm. ABDOMEN: No hepatosplenomegaly, normal bowel sounds, no guarding or rigidity. SPINE: No scoliosis or deformity SKIN: No rashes CENTRAL NERVOUS SYSTEM: No focal deficits, tone is normal in all 4 extremities. EXTREMITIES: Right radial arterial line present. There is no peripheral edema. No clubbing, no cyanosis. Peripheral pulses are intact. - Labs CBC & Chem 7: 03/06/21 04:12 03/06/21 04:12 Labs: Abnormal Lab Results - Last 24 Hours (Table) 03/05/21 03/05/21 03/05/21 Range/Units 09:09 09:53 12:04 WBC (3.8-10.6) k/uL RBC (4.30-5.90) m/uL Hgb (13.0-17.5) gm/dL Hct (39.0-53.0) % Neutrophils # (1.3-7.7) k/uL Monocytes # (0-1.0) k/uL Sodium (137-145) mmol/L Glucose (74-99) mg/dL POC Glucose (mg/dL) 155 H 130 H 108 H (75-99) mg/dL Calcium (8.4-10.2) mg/dL Total Protein (6.3-8.2) g/dL Albumin (3.5-5.0) g/dL 03/05/21 03/05/21 03/05/21 Range/Units 13:03 13:57 15:08 WBC (3.8-10.6) k/uL RBC (4.30-5.90) m/uL Hgb (13.0-17.5) gm/dL Hct (39.0-53.0) % Neutrophils # (1.3-7.7) k/uL Monocytes # (0-1.0) k/uL Sodium (137-145) mmol/L Glucose (74-99) mg/dL POC Glucose (mg/dL) 155 H 153 H 104 H (75-99) mg/dL Calcium (8.4-10.2) mg/dL Total Protein (6.3-8.2) g/dL Albumin (3.5-5.0) g/dL 03/05/21 03/05/21 03/05/21 Range/Units 15:56 16:59 18:16 WBC (3.8-10.6) k/uL RBC (4.30-5.90) m/uL Hgb (13.0-17.5) gm/dL Hct (39.0-53.0) % Neutrophils # (1.3-7.7) k/uL Monocytes # (0-1.0) k/uL Sodium (137-145) mmol/L Glucose (74-99) mg/dL POC Glucose (mg/dL) 128 H 115 H 127 H (75-99) mg/dL Calcium (8.4-10.2) mg/dL Total Protein (6.3-8.2) g/dL Albumin (3.5-5.0) g/dL 03/05/21 03/05/21 03/05/21 Range/Units 19:43 21:09 23:08 WBC (3.8-10.6) k/uL RBC (4.30-5.90) m/uL Hgb (13.0-17.5) gm/dL Hct (39.0-53.0) % Neutrophils # (1.3-7.7) k/uL Monocytes # (0-1.0) k/uL Sodium (137-145) mmol/L Glucose (74-99) mg/dL POC Glucose (mg/dL) 150 H 123 H 138 H (75-99) mg/dL Calcium (8.4-10.2) mg/dL Total Protein (6.3-8.2) g/dL Albumin (3.5-5.0) g/dL 03/06/21 03/06/21 03/06/21 Range/Units 00:07 01:06 03:00 WBC (3.8-10.6) k/uL RBC (4.30-5.90) m/uL Hgb (13.0-17.5) gm/dL Hct (39.0-53.0) % Neutrophils # (1.3-7.7) k/uL Monocytes # (0-1.0) k/uL Sodium (137-145) mmol/L Glucose (74-99) mg/dL POC Glucose (mg/dL) 129 H 120 H 118 H (75-99) mg/dL Calcium (8.4-10.2) mg/dL Total Protein (6.3-8.2) g/dL Albumin (3.5-5.0) g/dL 03/06/21 03/06/21 03/06/21 Range/Units 03:56 04:12 04:12 WBC 17.3 H (3.8-10.6) k/uL RBC 3.63 L (4.30-5.90) m/uL Hgb 10.8 L (13.0-17.5) gm/dL Hct 30.5 L (39.0-53.0) % Neutrophils # 14.4 H (1.3-7.7) k/uL Monocytes # 1.4 H (0-1.0) k/uL Sodium 134 L (137-145) mmol/L Glucose 125 H (74-99) mg/dL POC Glucose (mg/dL) 138 H (75-99) mg/dL Calcium 8.2 L (8.4-10.2) mg/dL Total Protein 5.0 L (6.3-8.2) g/dL Albumin 2.9 L (3.5-5.0) g/dL 03/06/21 03/06/21 03/06/21 Range/Units 05:39 06:30 08:17 WBC (3.8-10.6) k/uL RBC (4.30-5.90) m/uL Hgb (13.0-17.5) gm/dL Hct (39.0-53.0) % Neutrophils # (1.3-7.7) k/uL Monocytes # (0-1.0) k/uL Sodium (137-145) mmol/L Glucose (74-99) mg/dL POC Glucose (mg/dL) 120 H 117 H 152 H (75-99) mg/dL Calcium (8.4-10.2) mg/dL Total Protein (6.3-8.2) g/dL Albumin (3.5-5.0) g/dL 03/06/21 Range/Units 08:59 WBC (3.8-10.6) k/uL RBC (4.30-5.90) m/uL Hgb (13.0-17.5) gm/dL Hct (39.0-53.0) % Neutrophils # (1.3-7.7) k/uL Monocytes # (0-1.0) k/uL Sodium (137-145) mmol/L Glucose (74-99) mg/dL POC Glucose (mg/dL) 146 H (75-99) mg/dL Calcium (8.4-10.2) mg/dL Total Protein (6.3-8.2) g/dL Albumin (3.5-5.0) g/dL Assessment and Plan Assessment: 1 Unicuspid aortic valve with severe aortic valve regurgitation, status post aortic valve replacement with and On-X mechanical valve. Postoperative day #2. 2 Mild mitral valve regurgitation 3 Hypertension 4 History of acute on chronic systolic congestive heart failure 6 History of nephrolithiasis 7 Obesity 8 Suspected obstructive sleep apnea, chronic hypersomnia 9 History of chronic tobacco dependence, FEV1 value 77% of predicted Plan: The patient was seen and evaluated by Dr. Echevarria Chest x-ray and labs reviewed Encouraged increased use the incentive spirometer and cough and deep breathing exercises Increase his activity as tolerated Titrate the FiO2 as tolerated We will continue to follow and make further recommendations based on his clinical status I, the cosigning physician, performed a history & physical examination of the patient. Lungs sounds crackles in the bases left greater than right. Maintaining good O2 saturations in the 90s on 2 L/m per nasal cannula. I discussed the assessment and plan of care with my nurse practitioner, Antonia Browne. I attest to the above note as dictated by her.
[2021-03-06 10:07] LABS: Glucose,Whole Blood 123 mg/dL (75-99)
[2021-03-06 10:45] LABS: Prothrombin Time 10.7 sec (9.0-12.0)
[2021-03-06] MEDS ORDERED: ALBUMIN HUMAN 25% 50 ML in EMPTY BAG 1 BAG IVPB STA (10:55)
[2021-03-06] MEDS ORDERED: FUROSEMIDE 10 MG/ML 2 ML VIAL IV STA (10:55)
[2021-03-06 11:35] LABS: Glucose,Whole Blood 119 mg/dL (75-99)
--- NOTE | 2021-03-06 12:22 | P.PN ---
Subjective Progress Note Date: 03/06/21 HISTORY OF PRESENT ILLNESS: This is a 51-year-old male with a past medical history significant for bronchitis, kidney stones, heart failure, and hypertension. Patient follows in the office with Dr. Hua. We have been asked to see the patient in consultation for cardiac management. Patient is s/p aortic valve replacement using a 25 mm On-X mechanical valve. Selective non-coronary sinus replacement along with ascending aortic replacement using a 32 mm gel weave straight graft. Exclusion of the left atrial appendage using a 35 mm Atriclip. Intraoperative transesophageal echocardiogram and epi-aortic scanning. Postop day #1. Patient examined in the intensive care unit. Patient has been asked.. Patient is sitting up in the chair. Telemetry reveals sinus mechanism. Vital signs are stable. Patient has Primacor infusion running. Patient is using his incentive spirometer and pulling 1500 mL. Chest xray improving aeration left lower lobe persistent discoid atelectasis Laboratory data: WBC 18.1. Hemoglobin 11.7. Platelet count 178. Sodium 138. Potassium 4.7. BUN 9. Creatinine 0.81. Magnesium 2.0. Current home cardiac medications include lisinopril 10 mg twice a day, metoprolol succinate 25 mg daily, Lasix 40 mg daily, and aspirin 324 mg daily Patient underwent cardiac catheterization on 01/04/2021 revealing normal coronary arteries Echocardiogram dated in December 2020 revealed moderate global hypokinesis of LV, ejection fraction 30-35%, severe aortic regurgitation, mild mitral regurgitation, and mild tricuspid regurgitation with moderate pulmonary hypertension 03/06/2021 Patient examined this morning the intensive care unit. Patient is sitting up in the chair. Patient denies chest pain or pressure. He denies shortness of breath. Patient is using his incentive spirometer and pulling 6367-7552 mL. Vital signs are stable. Telemetry reveals sinus mechanism PHYSICAL EXAM: VITAL SIGNS: Reviewed. GENERAL: Well-developed in no acute distress. HEENT: Head is normocephalic. Pupils are equal, round. Sclerae anicteric. Mucous membranes of the mouth are moist. Neck supple. No JVD or thyromegaly LUNGS: Respirations even and unlabored. Lungs diminished bilaterally. HEART: Regular rate and rhythm. S1 and S2 heard. Dressing to sternum clean dry and intact. ABDOMEN: Soft. Nondistended. Nontender. EXTREMITIES: Normal range of motion. No clubbing or cyanosis. Peripheral pulses intact. No lower extremity edema NEUROLOGIC: Awake and alert. Oriented x 3. ASSESSMENT: Unicuspid aortic valve with severe aortic valve regurgitation, status post aortic valve replacement with mechanical valve Moderate left anterior dysfunction, moderate aortic root and ascending aortic dilation with bovine arch, status post selective non-coronary sinus replacement along with ascending aortic replacement History of hypertension History of systolic heart failure Postoperative acute blood loss anemia PLAN: Continue postoperative management per CTS Continue current cardiac medications Increase activity as tolerated Continue to encourage use of incentive spirometer Further recommendations pending patient course Nurse practitioner note has been reviewed by physician. Signing provider agrees with the documented findings, assessment, and plan of care. Objective - Vital Signs Vital signs: Vital Signs Temp 98.6 F 03/06/21 04:00 Pulse 102 H 03/06/21 11:18 Resp 15 03/06/21 07:00 BP 89/67 03/05/21 16:00 Pulse Ox 97 03/06/21 07:46 Intake & Output 03/05/21 03/06/21 03/06/21 18:59 06:59 18:59 Intake Total 1329.430 341.905 39.686 Output Total 1375 820 26 Balance -45.570 -478.095 13.686 Weight 118.3 kg 120.8 kg Intake: IV 602 312 26 CARDIAC OUTPUT 120 Lactated Ringers 1,000 ml 280 240 20 @ 20 mls/hr IV .Q24H [facility] Rx#:[id number] Pressure Bag 0.9 Sodium 102 72 6 Chloride ceFAZolin 2 gm In Sodium 100 Chloride 0.9% 50 ml @ 100 mls/hr IVPB Q8HR [facility] Rx# :[id number] Intake, IV Titration 127.430 29.905 13.686 Amount Calcium Gluconate 1 gm In 100 Sodium Chloride 0.9% 100 ml @ 100 mls/hr IVPB ONCE ONE Rx#:[id number] Insulin Regular 100 unit 27.430 29.905 13.686 In Sodium Chloride 0.9% 100 ml @ Per Protocol IV .Q0M [facility] Rx#:[id number] Oral 360 Tube Feeding 240 Output: Chest Tube Drainage 195 270 Mediastinal 195 270 Urine 1180 550 26 Other: Voiding Method Indwelling Catheter Indwelling Catheter ABP, PAP, CO, CI - Last Documented Arterial Blood Pressure 108/51 Pulmonary Artery Pressure 25/14 Cardiac Output 8.3 Cardiac Index 3.4 - Labs CBC & Chem 7: 03/06/21 04:12 03/06/21 04:12 Labs: Abnormal Lab Results - Last 24 Hours (Table) 03/05/21 03/05/21 03/05/21 Range/Units 13:03 13:57 15:08 WBC (3.8-10.6) k/uL RBC (4.30-5.90) m/uL Hgb (13.0-17.5) gm/dL Hct (39.0-53.0) % Neutrophils # (1.3-7.7) k/uL Monocytes # (0-1.0) k/uL Sodium (137-145) mmol/L Glucose (74-99) mg/dL POC Glucose (mg/dL) 155 H 153 H 104 H (75-99) mg/dL Calcium (8.4-10.2) mg/dL Total Protein (6.3-8.2) g/dL Albumin (3.5-5.0) g/dL 03/05/21 03/05/21 03/05/21 Range/Units 15:56 16:59 18:16 WBC (3.8-10.6) k/uL RBC (4.30-5.90) m/uL Hgb (13.0-17.5) gm/dL Hct (39.0-53.0) % Neutrophils # (1.3-7.7) k/uL Monocytes # (0-1.0) k/uL Sodium (137-145) mmol/L Glucose (74-99) mg/dL POC Glucose (mg/dL) 128 H 115 H 127 H (75-99) mg/dL Calcium (8.4-10.2) mg/dL Total Protein (6.3-8.2) g/dL Albumin (3.5-5.0) g/dL 03/05/21 03/05/21 03/05/21 Range/Units 19:43 21:09 23:08 WBC (3.8-10.6) k/uL RBC (4.30-5.90) m/uL Hgb (13.0-17.5) gm/dL Hct (39.0-53.0) % Neutrophils # (1.3-7.7) k/uL Monocytes # (0-1.0) k/uL Sodium (137-145) mmol/L Glucose (74-99) mg/dL POC Glucose (mg/dL) 150 H 123 H 138 H (75-99) mg/dL Calcium (8.4-10.2) mg/dL Total Protein (6.3-8.2) g/dL Albumin (3.5-5.0) g/dL 03/06/21 03/06/21 03/06/21 Range/Units 00:07 01:06 03:00 WBC (3.8-10.6) k/uL RBC (4.30-5.90) m/uL Hgb (13.0-17.5) gm/dL Hct (39.0-53.0) % Neutrophils # (1.3-7.7) k/uL Monocytes # (0-1.0) k/uL Sodium (137-145) mmol/L Glucose (74-99) mg/dL POC Glucose (mg/dL) 129 H 120 H 118 H (75-99) mg/dL Calcium (8.4-10.2) mg/dL Total Protein (6.3-8.2) g/dL Albumin (3.5-5.0) g/dL 03/06/21 03/06/21 03/06/21 Range/Units 03:56 04:12 04:12 WBC 17.3 H (3.8-10.6) k/uL RBC 3.63 L (4.30-5.90) m/uL Hgb 10.8 L (13.0-17.5) gm/dL Hct 30.5 L (39.0-53.0) % Neutrophils # 14.4 H (1.3-7.7) k/uL Monocytes # 1.4 H (0-1.0) k/uL Sodium 134 L (137-145) mmol/L Glucose 125 H (74-99) mg/dL POC Glucose (mg/dL) 138 H (75-99) mg/dL Calcium 8.2 L (8.4-10.2) mg/dL Total Protein 5.0 L (6.3-8.2) g/dL Albumin 2.9 L (3.5-5.0) g/dL 03/06/21 03/06/21 03/06/21 Range/Units 05:39 06:30 08:17 WBC (3.8-10.6) k/uL RBC (4.30-5.90) m/uL Hgb (13.0-17.5) gm/dL Hct (39.0-53.0) % Neutrophils # (1.3-7.7) k/uL Monocytes # (0-1.0) k/uL Sodium (137-145) mmol/L Glucose (74-99) mg/dL POC Glucose (mg/dL) 120 H 117 H 152 H (75-99) mg/dL Calcium (8.4-10.2) mg/dL Total Protein (6.3-8.2) g/dL Albumin (3.5-5.0) g/dL 03/06/21 03/06/21 03/06/21 Range/Units 08:59 10:05 11:32 WBC (3.8-10.6) k/uL RBC (4.30-5.90) m/uL Hgb (13.0-17.5) gm/dL Hct (39.0-53.0) % Neutrophils # (1.3-7.7) k/uL Monocytes # (0-1.0) k/uL Sodium (137-145) mmol/L Glucose (74-99) mg/dL POC Glucose (mg/dL) 146 H 123 H 119 H (75-99) mg/dL Calcium (8.4-10.2) mg/dL Total Protein (6.3-8.2) g/dL Albumin (3.5-5.0) g/dL
[2021-03-06] MEDS: LACTATED RINGERS 1,000 ML IV SCH (12:37)
[2021-03-06 12:38] LABS: Glucose,Whole Blood 110 mg/dL (75-99)
[2021-03-06 13:25] LABS: Glucose,Whole Blood 123 mg/dL (75-99)
[2021-03-06 14:33] LABS: Glucose,Whole Blood 128 mg/dL (75-99)
[2021-03-06 16:12] LABS: Glucose,Whole Blood 105 mg/dL (75-99)
[2021-03-06 17:09] LABS: Glucose,Whole Blood 108 mg/dL (75-99)
[2021-03-06] MEDS ORDERED: WARFARIN 10 MG TAB PO ONE (18:00)
[2021-03-06 18:10] LABS: Glucose,Whole Blood 147 mg/dL (75-99)
[2021-03-06 18:51] LABS: Glucose,Whole Blood 176 mg/dL (75-99)
[2021-03-06 21:14] LABS: Glucose,Whole Blood 121 mg/dL (75-99)
[2021-03-06] MEDS: SENNOSIDES-DOCUSATE SODIUM 1 EACH TAB PO SCH (21:58)
[2021-03-06 22:08] LABS: Glucose,Whole Blood 98 mg/dL (75-99)
[2021-03-06 23:30] LABS: Glucose,Whole Blood 126 mg/dL (75-99)
[2021-03-07 00:51] LABS: Glucose,Whole Blood 129 mg/dL (75-99)
[2021-03-07 02:08] LABS: Glucose,Whole Blood 127 mg/dL (75-99)
[2021-03-07 03:12] LABS: Glucose,Whole Blood 133 mg/dL (75-99)
[2021-03-07 04:07] LABS: Glucose,Whole Blood 119 mg/dL (75-99)
[2021-03-07 04:49] LABS: Basophils % (A) 0 %; Eosinophils # (A) 0.2 k/uL (0-0.7); Eosinophils % (A) 1 %; HCT 26.6 % (39.0-53.0); HGB 9.5 gm/dL (13.0-17.5); Lymphocytes # (A) 1.8 k/uL (1.0-4.8); Lymphocytes % (A) 14 %; MCH 30.2 pg (25.0-35.0); MCHC 35.7 g/dL (31.0-37.0); MCV 84.7 fL (80.0-100.0); Mean Platelet Volume 7.3; Monocytes # (A) 0.9 k/uL (0-1.0); Monocytes % (A) 7 %; Neutrophils # (A) 9.8 k/uL (1.3-7.7); Neutrophils % (A) 76 %; Platelet Count 147 k/uL (150-450); RBC 3.14 m/uL (4.30-5.90); RDW 13.8 % (11.5-15.5); WBC 12.8 k/uL (3.8-10.6)
[2021-03-07 05:03] LABS: ALT 11 U/L (4-49); AST 25 U/L (17-59); African American GFR (CKD) >90 (>60 ml/min/1.73 sqM); Albumin 2.7 g/dL (3.5-5.0); Alkaline Phosphatase 47 U/L (38-126); Anion Gap 2 mmol/L; Blood Urea Nitrogen 16 mg/dL (9-20); Calcium 8.1 mg/dL (8.4-10.2); Carbon Dioxide 31 mmol/L (22-30); Chloride 105 mmol/L (98-107); Glucose 117 mg/dL (74-99); Non-African American GFR(CKD) >90 (>60 ml/min/1.73 sqM); Potassium 4.2 mmol/L (3.5-5.1); Sodium 138 mmol/L (137-145); Total Bilirubin 0.9 mg/dL (0.2-1.3); Total Protein 4.8 g/dL (6.3-8.2)
[2021-03-07] MEDS: HYDROcodone/APAP 7.5-325MG 1 EACH TAB PO PRN ×2 (05:28→16:52)
[2021-03-07 06:04] LABS: Glucose,Whole Blood 106 mg/dL (75-99)
[2021-03-07] MEDS: KETOROLAC 15 MG/ML 1 ML VIAL IVP SCH ×2 (06:38→11:54)
[2021-03-07] MEDS: PANTOPRAZOLE 40 MG TABLET PO SCH (06:40)
[2021-03-07] MEDS: BENZOCAINE/MENTHOL LOZENG 1 EACH LOZENGE MUCOUS MEM PRN (06:45)
[2021-03-07 07:37] LABS: INR 1.3 (<1.2); Prothrombin Time 13.3 sec (9.0-12.0)
[2021-03-07] MEDS ORDERED: FUROSEMIDE 10 MG/ML 2 ML VIAL IV STA (08:05)
[2021-03-07] MEDS: ASPIRIN 81 MG PO SCH (08:06)
[2021-03-07] MEDS: CLOPIDOGREL 75 MG TAB PO SCH (08:06)
[2021-03-07] MEDS: ATORVASTATIN 40 MG TAB PO SCH (08:07)
[2021-03-07] MEDS: METOPROLOL TARTRATE 50 MG TAB PO SCH ×2 (08:08→20:23)
[2021-03-07] MEDS: MAGNESIUM HYDROXIDE 2,400 MG/10 ML CUP PO PRN (08:08)
[2021-03-07] MEDS: ACETAMINOPHEN TAB 325 MG TAB PO PRN ×2 (08:08→20:23)
[2021-03-07] MEDS: INSULIN ASPART (NovoLOG) 100 UNIT/ML VIAL SQ SCH ×4 (08:12→20:35)
--- NOTE | 2021-03-07 08:12 | XR ---
EXAMINATION TYPE: XR chest 1V portable DATE OF EXAM: 03/07/2021 Comparison: 03/06/2021 Clinical History: 51 year-old male post open heart Findings: Median sternotomy wires are present. Multiple overlying leads limit the assessment. Difficult to dete rmine if the mediastinal drains are still present. Mild cardiomegaly. Mild interstitial prominence re demonstrated. Small left effusion with retrocardiac and left basilar opacity remains. No appreciable pneumothorax. Impression: There may be continued mild pulmonary vascular congestion. Continued small left effusion with extensi ve retrocardiac/left basilar opacification, probable postsurgical atelectasis.
[2021-03-07] MEDS: IPRATROPIUM-ALBUTEROL 3 ML NEB INHALATION SCH ×4 (08:20→22:34)
[2021-03-07] MEDS: HEPARIN SODIUM,PORCINE/PF 5,000 UNIT/0.5 ML SYRINGE SQ SCH ×3 (08:21→23:04)
--- NOTE | 2021-03-07 08:24 | P.PN ---
Subjective Progress Note Date: 03/07/21 Principal diagnosis: Unicuspid aortic valve with severe aortic valve regurgitation, moderate left anterior dysfunction, moderate root and ascending dilation with bovine arch, and mild mitral valve regurgitation. Previous medical history of hypertension, acute on chronic systolic heart failure, history of kidney stones, bronchitis, obesity, chronic hypersomnia, previous tobacco dependence, and possible sleep apnea syndrome. Preoperative nasal swab positive for MSSA. POD #3 aortic valve replacement using a 25 mm On-X mechanical valve. Selective non-coronary sinus replacement along with ascending aortic replacement using a 32 mm gel weave straight graft. Exclusion of the left atrial appendage using a 35 mm Atriclip. Intraoperative transesophageal echocardiogram and epi-aortic scanning. Postoperative acute blood loss anemia, expected due to hemodilution and card iopulmonary bypass The patient is currently sitting up in a recliner in the ICU in no acute distre ss eating breakfast. States pain is controlled on current medication regimen, denies shortness of breath. Does complain of lack of sleep this morning, otherwise no new concerns. Remains in normal sinus rhythm and hemodynamically stable on no inotropes or pressors. Currently on 2 L nasal cannula with oxygen saturation in the mid 90s, able to achieve 1250 mL on his incentive spirometry. Mediastinal chest tube, right internal jugular Cordis, right radial arterial line all remaining present. Patient states he was ambulatory in the hallway yesterday with stand-by assist. Epicardial pacemaker wires were discontinued yesterday, patient was started on Coumadin. No other new concerns. Objective - Vital Signs Vital signs: Vital Signs Temp 98.1 F 03/07/21 00:00 Pulse 90 03/07/21 06:00 Resp 24 03/07/21 06:00 BP 115/72 03/07/21 05:30 Pulse Ox 92 L 03/07/21 06:00 Intake & Output 03/06/21 03/07/21 03/07/21 18:59 06:59 18:59 Intake Total 1264.344 686 Output Total 877 515 Balance 387.344 171 Weight 118.9 kg Intake: IV 388 286 Albumin Human 25% 50 ml 50 In Empty Bag 1 bag @ 50 mls/hr IVPB ONCE STA Rx#: [id number] Lactated Ringers 1,000 ml 260 220 @ 20 mls/hr IV .Q24H [facility] Rx#:[id number] Pressure Bag 0.9 Sodium 78 66 Chloride Intake, IV Titration 36.344 Amount Insulin Regular 100 unit 36.344 In Sodium Chloride 0.9% 100 ml @ Per Protocol IV .Q0M [facility] Rx#:[id number] Oral 840 400 Output: Chest Tube Drainage 110 Mediastinal 110 Urine 767 515 Other: Voiding Method Urinal Urinal ABP, PAP, CO, CI - Last Documented Arterial Blood Pressure 155/74 Pulmonary Artery Pressure 25/14 Cardiac Output 8.3 Cardiac Index 3.4 - Exam CONSTITUTIONAL: Appears comfortable, cooperative, no acute distress RESPIRATORY: Lungs sounds diminished bilaterally. Respirations even, nonlabored. Currently on 2 L nasal cannula with oxygen saturation 95%. Able to achieve 1250 mL on incentive spirometry. Strong cough. CARDIOVASCULAR: S1, S2 present. Regular rate and rhythm, sinus rhythm on telemetry. Sternum stable. Palpable peripheral pulses bilaterally. No edema present. No calf pain or tenderness noted. Heart hugger in place with patient demonstrating appropriate use. Antiembolism stockings, SCDs present. GASTROINTESTINAL: Abdomen soft, nontender, nondistended. Active bowel sounds present 4 quadrants. Tolerating diet. Positive flatus GENITOURINARY: Garcia discontinued yesterday, continues to void clear, yellow urine. INTEGUMENTARY: Skin is warm and dry with evidence of good perfusion. Anterior chest incision well approximated and covered with dry intact dressing. NEUROLOGIC: Cranial nerves II through XII intact MUSKULOSKELETAL: Able to move all extremities, strength equal bilaterally, gait normal PSYCHIATRIC: Alert and oriented to person place and time, appropriate affect, intact judgment and insight INVASIVE LINES AND TUBES: Mediastinal chest tubes present and connected to wall suction, no air leaks present, 200 mL serosanguineous drainage in the last 24 hours. Right internal jugular cordis, right radial arterial line present. - Allied health notes Allied health notes reviewed: nursing - Labs CBC & Chem 7: 03/07/21 04:30 03/07/21 04:30 Labs: Abnormal Lab Results - Last 24 Hours (Table) 03/06/21 03/06/21 03/06/21 Range/Units 08:17 08:59 10:05 WBC (3.8-10.6) k/uL RBC (4.30-5.90) m/uL Hgb (13.0-17.5) gm/dL Hct (39.0-53.0) % Plt Count (150-450) k/uL Neutrophils # (1.3-7.7) k/uL PT (9.0-12.0) sec INR (<1.2) Carbon Dioxide (22-30) mmol/L Glucose (74-99) mg/dL POC Glucose (mg/dL) 152 H 146 H 123 H (75-99) mg/dL Calcium (8.4-10.2) mg/dL Total Protein (6.3-8.2) g/dL Albumin (3.5-5.0) g/dL 03/06/21 03/06/21 03/06/21 Range/Units 11:32 12:35 13:24 WBC (3.8-10.6) k/uL RBC (4.30-5.90) m/uL Hgb (13.0-17.5) gm/dL Hct (39.0-53.0) % Plt Count (150-450) k/uL Neutrophils # (1.3-7.7) k/uL PT (9.0-12.0) sec INR (<1.2) Carbon Dioxide (22-30) mmol/L Glucose (74-99) mg/dL POC Glucose (mg/dL) 119 H 110 H 123 H (75-99) mg/dL Calcium (8.4-10.2) mg/dL Total Protein (6.3-8.2) g/dL Albumin (3.5-5.0) g/dL 03/06/21 03/06/21 03/06/21 Range/Units 14:31 16:11 17:07 WBC (3.8-10.6) k/uL RBC (4.30-5.90) m/uL Hgb (13.0-17.5) gm/dL Hct (39.0-53.0) % Plt Count (150-450) k/uL Neutrophils # (1.3-7.7) k/uL PT (9.0-12.0) sec INR (<1.2) Carbon Dioxide (22-30) mmol/L Glucose (74-99) mg/dL POC Glucose (mg/dL) 128 H 105 H 108 H (75-99) mg/dL Calcium (8.4-10.2) mg/dL Total Protein (6.3-8.2) g/dL Albumin (3.5-5.0) g/dL 03/06/21 03/06/21 03/06/21 Range/Units 18:09 18:49 21:12 WBC (3.8-10.6) k/uL RBC (4.30-5.90) m/uL Hgb (13.0-17.5) gm/dL Hct (39.0-53.0) % Plt Count (150-450) k/uL Neutrophils # (1.3-7.7) k/uL PT (9.0-12.0) sec INR (<1.2) Carbon Dioxide (22-30) mmol/L Glucose (74-99) mg/dL POC Glucose (mg/dL) 147 H 176 H 121 H (75-99) mg/dL Calcium (8.4-10.2) mg/dL Total Protein (6.3-8.2) g/dL Albumin (3.5-5.0) g/dL 03/06/21 03/07/21 03/07/21 Range/Units 23:28 00:49 02:06 WBC (3.8-10.6) k/uL RBC (4.30-5.90) m/uL Hgb (13.0-17.5) gm/dL Hct (39.0-53.0) % Plt Count (150-450) k/uL Neutrophils # (1.3-7.7) k/uL PT (9.0-12.0) sec INR (<1.2) Carbon Dioxide (22-30) mmol/L Glucose (74-99) mg/dL POC Glucose (mg/dL) 126 H 129 H 127 H (75-99) mg/dL Calcium (8.4-10.2) mg/dL Total Protein (6.3-8.2) g/dL Albumin (3.5-5.0) g/dL 03/07/21 03/07/21 03/07/21 Range/Units 03:11 04:05 04:30 WBC 12.8 H (3.8-10.6) k/uL RBC 3.14 L (4.30-5.90) m/uL Hgb 9.5 L (13.0-17.5) gm/dL Hct 26.6 L (39.0-53.0) % Plt Count 147 L (150-450) k/uL Neutrophils # 9.8 H (1.3-7.7) k/uL PT (9.0-12.0) sec INR (<1.2) Carbon Dioxide (22-30) mmol/L Glucose (74-99) mg/dL POC Glucose (mg/dL) 133 H 119 H (75-99) mg/dL Calcium (8.4-10.2) mg/dL Total Protein (6.3-8.2) g/dL Albumin (3.5-5.0) g/dL 03/07/21 03/07/21 03/07/21 Range/Units 04:30 06:03 06:55 WBC (3.8-10.6) k/uL RBC (4.30-5.90) m/uL Hgb (13.0-17.5) gm/dL Hct (39.0-53.0) % Plt Count (150-450) k/uL Neutrophils # (1.3-7.7) k/uL PT 13.3 H (9.0-12.0) sec INR 1.3 H (<1.2) Carbon Dioxide 31 H (22-30) mmol/L Glucose 117 H (74-99) mg/dL POC Glucose (mg/dL) 106 H (75-99) mg/dL Calcium 8.1 L (8.4-10.2) mg/dL Total Protein 4.8 L (6.3-8.2) g/dL Albumin 2.7 L (3.5-5.0) g/dL - Imaging and Cardiology Chest x-ray: report reviewed, image reviewed Assessment and Plan Assessment: 1. Unicuspid aortic valve with severe aortic valve regurgitation, status post aortic valve replacement using a 25 mm On-X mechanical valve 2. Moderate left anterior dysfunction, moderate aortic root and ascending aortic dilation with bovine arch, status post selective non-coronary sinus replacement along with ascending aortic replacement using a 32 mm gel weave straight graft 3. Mild mitral valve regurgitation 4. History of hypertension 5. History of acute on chronic systolic heart failure 6. History of kidney stones 7. History of bronchitis 8. Obesity 9. History of chronic hypersomnia and possible sleep apnea syndrome 10. Previous tobacco dependence with preoperative FEV1 77% of predicted 11. Preoperative nasal swab positive for MSSA, treated preoperatively with mupirocin 12. Postoperative acute blood loss anemia, expected due to hemodilution and cardiopulmonary bypass Plan: 1. Continue low dose aspirin, Plavix, statin, and beta ben. Will increase beta ben therapy as tolerated, increased to 50 mg BID today. Will stop Plavix, SQ heparin once INR therapeutic. 2. Wean O2 as tolerated. Encourage incentive spirometry use 10 times every hour while awake. Bronchodilators per pulmonology 3. Increase activity, ambulate as tolerated. PT/OT/cardiac rehab following 4. Will monitor daily labs including PT/INR and chest x-rays. Electrolyte replacement per protocol. 5. GI/DVT prophylaxis 6. Insulin management per primary care service. Patient is not diabetic, preoperative hemoglobin A1c 5.2%. 7. Pain control with current medication regimen. 8. Will give Lasix 20 mg IVP x 1 9. Will discontinue mediastinal chest tubes, cordis 10. Strict accurate intake and output, daily weights 11. Will dose Coumadin daily based on INR, goal INR 2-3 the first 3 months, then 1.5-[address] transfer orders for [address] [place] [id number] cardiac step-down unit, may transfer when bed available 13. More recommendations to follow based on patient's progress. Time with Patient: Greater than 30
[2021-03-07] MEDS: MUPIROCIN 2% OINT 22 GM TUBE TOPICAL SCH ×2 (09:37→20:55)
[2021-03-07] MEDS: buPROPion SR 150 MG TABLET.ER PO SCH ×2 (09:37→20:55)
--- NOTE | 2021-03-07 10:24 | P.PN ---
Subjective Progress Note Date: 03/07/21 HISTORY OF PRESENT ILLNESS: This is a 51-year-old male with a past medical history significant for bronchitis, kidney stones, heart failure, and hypertension. Patient follows in the office with Dr. Hua. We have been asked to see the patient in consultation for cardiac management. Patient is s/p aortic valve replacement using a 25 mm On-X mechanical valve. Selective non-coronary sinus replacement along with ascending aortic replacement using a 32 mm gel weave straight graft. Exclusion of the left atrial appendage using a 35 mm Atriclip. Intraoperative transesophageal echocardiogram and epi-aortic scanning. Postop day #1. Patient examined in the intensive care unit. Patient has been asked.. Patient is sitting up in the chair. Telemetry reveals sinus mechanism. Vital signs are stable. Patient has Primacor infusion running. Patient is using his incentive spirometer and pulling 1500 mL. Chest xray improving aeration left lower lobe persistent discoid atelectasis Laboratory data: WBC 18.1. Hemoglobin 11.7. Platelet count 178. Sodium 138. Potassium 4.7. BUN 9. Creatinine 0.81. Magnesium 2.0. Current home cardiac medications include lisinopril 10 mg twice a day, metoprolol succinate 25 mg daily, Lasix 40 mg daily, and aspirin 324 mg daily Patient underwent cardiac catheterization on 01/04/2021 revealing normal coronary arteries Echocardiogram dated in December 2020 revealed moderate global hypokinesis of LV, ejection fraction 30-35%, severe aortic regurgitation, mild mitral regurgitation, and mild tricuspid regurgitation with moderate pulmonary hypertension 03/06/2021 Patient examined this morning the intensive care unit. Patient is sitting up in the chair. Patient denies chest pain or pressure. He denies shortness of breath. Patient is using his incentive spirometer and pulling 0187-0077 mL. Vital signs are stable. Telemetry reveals sinus mechanism 03/07/2021 Patient examined this morning in the intensive care unit. Patient is sitting up in the chair. Denies SOB. Denies chest pain or pressure. Pain is controlled. Patient reports ambulating yesterday and this morning in the hallway. He is pulling 1000cc on his IS. Telemetry reveals sinus mechanism. Vital signs stable. PHYSICAL EXAM: VITAL SIGNS: Reviewed. GENERAL: Well-developed in no acute distress. HEENT: Head is normocephalic. Pupils are equal, round. Sclerae anicteric. Mucous membranes of the mouth are moist. Neck supple. No JVD or thyromegaly LUNGS: Respirations even and unlabored. Lungs diminished bilaterally. HEART: Regular rate and rhythm. S1 and S2 heard. Dressing to sternum clean dry and intact. ABDOMEN: Soft. Nondistended. Nontender. EXTREMITIES: Normal range of motion. No clubbing or cyanosis. Peripheral pulses intact. No lower extremity edema NEUROLOGIC: Awake and alert. Oriented x 3. ASSESSMENT: Unicuspid aortic valve with severe aortic valve regurgitation, status post aorti c valve replacement with mechanical valve Moderate left anterior dysfunction, moderate aortic root and ascending aortic dilation with bovine arch, status post selective non-coronary sinus replacement along with ascending aortic replacement History of hypertension History of systolic heart failure Postoperative acute blood loss anemia PLAN: Continue postoperative management per CTS Continue current cardiac medications Increase activity as tolerated Continue to encourage use of incentive spirometer Patient has been started on Coumadin. Monitor INR Beta ben increased per CTS today Further recommendations pending patient course Nurse practitioner note has been reviewed by physician. Signing provider agrees with the documented findings, assessment, and plan of care. Objective - Vital Signs Vital signs: Vital Signs Temp 98.1 F 03/07/21 00:00 Pulse 83 03/07/21 08:33 Resp 24 03/07/21 06:00 BP 115/72 03/07/21 05:30 Pulse Ox 92 L 03/07/21 06:00 Intake & Output 03/06/21 03/07/21 03/07/21 18:59 06:59 18:59 Intake Total 1264.344 686 26 Output Total 877 515 0 Balance 387.344 171 26 Weight 118.9 kg Intake: IV 388 286 26 Albumin Human 25% 50 ml 50 In Empty Bag 1 bag @ 50 mls/hr IVPB ONCE [facility] Rx#: [id number] Lactated Ringers 1,000 ml 260 220 20 @ 20 mls/hr IV .Q24H [facility] Rx#:[id number] Pressure Bag 0.9 Sodium 78 66 6 Chloride Intake, IV Titration 36.344 Amount Insulin Regular 100 unit 36.344 In Sodium Chloride 0.9% 100 ml @ Per Protocol IV .Q0M [facility] Rx#:[id number] Oral 840 400 Output: Chest Tube Drainage 110 Mediastinal 110 Urine 767 515 0 Other: Voiding Method Urinal Urinal ABP, PAP, CO, CI - Last Documented Arterial Blood Pressure 155/74 Pulmonary Artery Pressure 25/14 Cardiac Output 8.3 Cardiac Index 3.4 - Labs CBC & Chem 7: 03/07/21 04:30 03/07/21 04:30 Labs: Abnormal Lab Results - Last 24 Hours (Table) 03/06/21 03/06/21 03/06/21 Range/Units 11:32 12:35 13:24 WBC (3.8-10.6) k/uL RBC (4.30-5.90) m/uL Hgb (13.0-17.5) gm/dL Hct (39.0-53.0) % Plt Count (150-450) k/uL Neutrophils # (1.3-7.7) k/uL PT (9.0-12.0) sec INR (<1.2) Carbon Dioxide (22-30) mmol/L Glucose (74-99) mg/dL POC Glucose (mg/dL) 119 H 110 H 123 H (75-99) mg/dL Calcium (8.4-10.2) mg/dL Total Protein (6.3-8.2) g/dL Albumin (3.5-5.0) g/dL 03/06/21 03/06/21 03/06/21 Range/Units 14:31 16:11 17:07 WBC (3.8-10.6) k/uL RBC (4.30-5.90) m/uL Hgb (13.0-17.5) gm/dL Hct (39.0-53.0) % Plt Count (150-450) k/uL Neutrophils # (1.3-7.7) k/uL PT (9.0-12.0) sec INR (<1.2) Carbon Dioxide (22-30) mmol/L Glucose (74-99) mg/dL POC Glucose (mg/dL) 128 H 105 H 108 H (75-99) mg/dL Calcium (8.4-10.2) mg/dL Total Protein (6.3-8.2) g/dL Albumin (3.5-5.0) g/dL 03/06/21 03/06/21 03/06/21 Range/Units 18:09 18:49 21:12 WBC (3.8-10.6) k/uL RBC (4.30-5.90) m/uL Hgb (13.0-17.5) gm/dL Hct (39.0-53.0) % Plt Count (150-450) k/uL Neutrophils # (1.3-7.7) k/uL PT (9.0-12.0) sec INR (<1.2) Carbon Dioxide (22-30) mmol/L Glucose (74-99) mg/dL POC Glucose (mg/dL) 147 H 176 H 121 H (75-99) mg/dL Calcium (8.4-10.2) mg/dL Total Protein (6.3-8.2) g/dL Albumin (3.5-5.0) g/dL 03/06/21 03/07/21 03/07/21 Range/Units 23:28 00:49 02:06 WBC (3.8-10.6) k/uL RBC (4.30-5.90) m/uL Hgb (13.0-17.5) gm/dL Hct (39.0-53.0) % Plt Count (150-450) k/uL Neutrophils # (1.3-7.7) k/uL PT (9.0-12.0) sec INR (<1.2) Carbon Dioxide (22-30) mmol/L Glucose (74-99) mg/dL POC Glucose (mg/dL) 126 H 129 H 127 H (75-99) mg/dL Calcium (8.4-10.2) mg/dL Total Protein (6.3-8.2) g/dL Albumin (3.5-5.0) g/dL 03/07/21 03/07/21 03/07/21 Range/Units 03:11 04:05 04:30 WBC 12.8 H (3.8-10.6) k/uL RBC 3.14 L (4.30-5.90) m/uL Hgb 9.5 L (13.0-17.5) gm/dL Hct 26.6 L (39.0-53.0) % Plt Count 147 L (150-450) k/uL Neutrophils # 9.8 H (1.3-7.7) k/uL PT (9.0-12.0) sec INR (<1.2) Carbon Dioxide (22-30) mmol/L Glucose (74-99) mg/dL POC Glucose (mg/dL) 133 H 119 H (75-99) mg/dL Calcium (8.4-10.2) mg/dL Total Protein (6.3-8.2) g/dL Albumin (3.5-5.0) g/dL 03/07/21 03/07/21 03/07/21 Range/Units 04:30 06:03 06:55 WBC (3.8-10.6) k/uL RBC (4.30-5.90) m/uL Hgb (13.0-17.5) gm/dL Hct (39.0-53.0) % Plt Count (150-450) k/uL Neutrophils # (1.3-7.7) k/uL PT 13.3 H (9.0-12.0) sec INR 1.3 H (<1.2) Carbon Dioxide 31 H (22-30) mmol/L Glucose 117 H (74-99) mg/dL POC Glucose (mg/dL) 106 H (75-99) mg/dL Calcium 8.1 L (8.4-10.2) mg/dL Total Protein 4.8 L (6.3-8.2) g/dL Albumin 2.7 L (3.5-5.0) g/dL
--- NOTE | 2021-03-07 10:54 | P.PN ---
Subjective Progress Note Date: 03/07/21 This is a 59-year-old male, who is postop day #1, status post Bent[place] procedure. 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 The patient had aortic valve replacement using a 25 mm On- X mechanical valve, selected non-coronary sinus replacement along with ascending aortic replacement using a 32 mm Gel weave straight graft, exclusion of the left atrial appendage and intraoperative transesophageal echocardiogram. Currently, the patient's doing well. He is on 4 L nasal cannula. He was extubated within 5 hours post exiting the operating room. The patient is on lactated Ringer's at 50 mL an hour, and Primacor at 0.2 mcg/kg/m. The patient is getting insulin at 3.5 units an hour. Currently, the patient appears to be doing relatively well. White count 18.1, hemoglobin 11.7, hematocrit 32.6, and platelet count normal. Sodium 138, potassium 4.7, chlorides 108, CO2 28, anion gap 2, BUN 9, creatinine 0.81. Chest x-ray shows cardiomegaly and some mild bibasilar atelectasis. The patient is seen today 03/06/2021 in follow-up in the intensive care unit. Postoperative day #2. He is currently sitting up in a chair at the bedside. Awake and alert in no acute distress. Maintaining good O2 saturation in the 90s on 2 L/m per nasal cannula. He has lactated Ringer's at 20 ML's per hour. Insulin drip at 2.5 units per hour. Chest x-ray revealing a developing cardiomegaly with left lower lobe infiltrate/effusion. Mediastinal chest tube remain present. Cordis remains present in the right. [place] removed. No pneumothorax is evident. White count 17.3. Hemoglobin 10.8. Sodium 134. Potassium 4.2. Creatinine 0.74. He is continued on bronchodilators, heparin for DVT prophylaxis. He is working well with the incentive spirometer. Pulling approximately 1000 ML's. The patient is seen today 03/07/2021 in follow-up in the intensive care unit. This is postoperative day #3. He is currently sitting up in a chair at the bedside. Awake and alert in no acute distress. Chest x-ray still revealing left lower lobe atelectasis. Mediastinal chest tube remains in place. He is on 2 L/m per nasal cannula to maintain O2 saturation in the 90s. Working well with the incentive spirometer. Pulling approximately 1250 ML's. Right IJ Cordis in place. Right radial artery in place. Epicardial wires discontinued. White count 12.8. Hemoglobin 9.5. Platelets 147. INR 1.3. Sodium 1:30. Potassium 4.2. Creatinine 0.74. Warfarin being initiated today. Objective - Vital Signs Vital signs: Vital Signs Temp 98.1 F 03/07/21 00:00 Pulse 83 03/07/21 08:33 Resp 24 03/07/21 06:00 BP 115/72 03/07/21 05:30 Pulse Ox 92 L 03/07/21 06:00 Intake & Output 03/06/21 03/07/21 03/07/21 18:59 06:59 18:59 Intake Total 1264.344 686 26 Output Total 877 515 0 Balance 387.344 171 26 Weight 118.9 kg Intake: IV 388 286 26 Albumin Human 25% 50 ml 50 In Empty Bag 1 bag @ 50 mls/hr IVPB ONCE [facility] Rx#: [id number] Lactated Ringers 1,000 ml 260 220 20 @ 20 mls/hr IV .Q24H [facility] Rx#:[id number] Pressure Bag 0.9 Sodium 78 66 6 Chloride Intake, IV Titration 36.344 Amount Insulin Regular 100 unit 36.344 In Sodium Chloride 0.9% 100 ml @ Per Protocol IV .Q0M [facility] Rx#:[id number] Oral 840 400 Output: Chest Tube Drainage 110 Mediastinal 110 Urine 767 515 0 Other: Voiding Method Urinal Urinal ABP, PAP, CO, CI - Last Documented Arterial Blood Pressure 155/74 Pulmonary Artery Pressure 25/14 Cardiac Output 8.3 Cardiac Index 3.4 - Exam GENERAL EXAM: Alert, active, pleasant 51-year-old gentleman, on 2 L nasal cannula, fairly comfortable in no apparent distress. HEAD: Normocephalic. EYES: Normal reaction of pupils, equal size. NOSE: Clear with pink turbinates. THROAT: No erythema or exudates. NECK: Right-sided cordis remains in place No masses, no JVD. CHEST: Sternal dressing dry and intact. Heart Hugger. AV pacer wires discont inued. Mediastinal chest tubes in place LUNGS: Equal air entry with crackles in the bases left greater than right. CVS: S1 and S2 normal with no audible murmur, regular rhythm. ABDOMEN: No hepatosplenomegaly, normal bowel sounds, no guarding or rigidity. SPINE: No scoliosis or deformity SKIN: No rashes CENTRAL NERVOUS SYSTEM: No focal deficits, tone is normal in all 4 extremities. EXTREMITIES: Right radial arterial line present. There is no peripheral edema. No clubbing, no cyanosis. Peripheral pulses are intact. - Labs CBC & Chem 7: 03/07/21 04:30 03/07/21 04:30 Labs: Abnormal Lab Results - Last 24 Hours (Table) 03/06/21 03/06/21 03/06/21 Range/Units 11:32 12:35 13:24 WBC (3.8-10.6) k/uL RBC (4.30-5.90) m/uL Hgb (13.0-17.5) gm/dL Hct (39.0-53.0) % Plt Count (150-450) k/uL Neutrophils # (1.3-7.7) k/uL PT (9.0-12.0) sec INR (<1.2) Carbon Dioxide (22-30) mmol/L Glucose (74-99) mg/dL POC Glucose (mg/dL) 119 H 110 H 123 H (75-99) mg/dL Calcium (8.4-10.2) mg/dL Total Protein (6.3-8.2) g/dL Albumin (3.5-5.0) g/dL 03/06/21 03/06/21 03/06/21 Range/Units 14:31 16:11 17:07 WBC (3.8-10.6) k/uL RBC (4.30-5.90) m/uL Hgb (13.0-17.5) gm/dL Hct (39.0-53.0) % Plt Count (150-450) k/uL Neutrophils # (1.3-7.7) k/uL PT (9.0-12.0) sec INR (<1.2) Carbon Dioxide (22-30) mmol/L Glucose (74-99) mg/dL POC Glucose (mg/dL) 128 H 105 H 108 H (75-99) mg/dL Calcium (8.4-10.2) mg/dL Total Protein (6.3-8.2) g/dL Albumin (3.5-5.0) g/dL 03/06/21 03/06/21 03/06/21 Range/Units 18:09 18:49 21:12 WBC (3.8-10.6) k/uL RBC (4.30-5.90) m/uL Hgb (13.0-17.5) gm/dL Hct (39.0-53.0) % Plt Count (150-450) k/uL Neutrophils # (1.3-7.7) k/uL PT (9.0-12.0) sec INR (<1.2) Carbon Dioxide (22-30) mmol/L Glucose (74-99) mg/dL POC Glucose (mg/dL) 147 H 176 H 121 H (75-99) mg/dL Calcium (8.4-10.2) mg/dL Total Protein (6.3-8.2) g/dL Albumin (3.5-5.0) g/dL 03/06/21 03/07/21 03/07/21 Range/Units 23:28 00:49 02:06 WBC (3.8-10.6) k/uL RBC (4.30-5.90) m/uL Hgb (13.0-17.5) gm/dL Hct (39.0-53.0) % Plt Count (150-450) k/uL Neutrophils # (1.3-7.7) k/uL PT (9.0-12.0) sec INR (<1.2) Carbon Dioxide (22-30) mmol/L Glucose (74-99) mg/dL POC Glucose (mg/dL) 126 H 129 H 127 H (75-99) mg/dL Calcium (8.4-10.2) mg/dL Total Protein (6.3-8.2) g/dL Albumin (3.5-5.0) g/dL 03/07/21 03/07/21 03/07/21 Range/Units 03:11 04:05 04:30 WBC 12.8 H (3.8-10.6) k/uL RBC 3.14 L (4.30-5.90) m/uL Hgb 9.5 L (13.0-17.5) gm/dL Hct 26.6 L (39.0-53.0) % Plt Count 147 L (150-450) k/uL Neutrophils # 9.8 H (1.3-7.7) k/uL PT (9.0-12.0) sec INR (<1.2) Carbon Dioxide (22-30) mmol/L Glucose (74-99) mg/dL POC Glucose (mg/dL) 133 H 119 H (75-99) mg/dL Calcium (8.4-10.2) mg/dL Total Protein (6.3-8.2) g/dL Albumin (3.5-5.0) g/dL 03/07/21 03/07/21 03/07/21 Range/Units 04:30 06:03 06:55 WBC (3.8-10.6) k/uL RBC (4.30-5.90) m/uL Hgb (13.0-17.5) gm/dL Hct (39.0-53.0) % Plt Count (150-450) k/uL Neutrophils # (1.3-7.7) k/uL PT 13.3 H (9.0-12.0) sec INR 1.3 H (<1.2) Carbon Dioxide 31 H (22-30) mmol/L Glucose 117 H (74-99) mg/dL POC Glucose (mg/dL) 106 H (75-99) mg/dL Calcium 8.1 L (8.4-10.2) mg/dL Total Protein 4.8 L (6.3-8.2) g/dL Albumin 2.7 L (3.5-5.0) g/dL Assessment and Plan Assessment: 1 Unicuspid aortic valve with severe aortic valve regurgitation, status post aortic valve replacement with and On-X mechanical valve. Postoperative day #3. 2 Mild mitral valve regurgitation 3 Hypertension 4 History of acute on chronic systolic congestive heart failure 6 History of nephrolithiasis 7 Obesity 8 Suspected obstructive sleep apnea, chronic hypersomnia 9 History of chronic tobacco dependence, FEV1 value 77% of predicted Plan: The patient was seen and evaluated by Dr. Echevarria Chest x-ray and labs reviewed Continue incentive spirometer and cough and deep breathing exercises Increase his activity as tolerated Titrate the FiO2 as tolerated Transfer to selective care unit when bed available We will continue to follow I, the cosigning physician, performed a history & physical examination of the patient. Lungs sounds crackles in the bases left greater than right. Maintaining good O2 saturations in the 90s on 2 L/m per nasal cannula. I discussed the assessment and plan of care with my nurse practitioner, Antonia Browne. I attest to the above note as dictated by her.
[2021-03-07 11:54] LABS: Glucose,Whole Blood 111 mg/dL (75-99)
[2021-03-07 16:51] LABS: Glucose,Whole Blood 93 mg/dL (75-99)
[2021-03-07] MEDS ORDERED: WARFARIN 10 MG TAB PO ONE (18:00)
[2021-03-07] MEDS: SENNOSIDES-DOCUSATE SODIUM 1 EACH TAB PO SCH (20:23)
[2021-03-07 20:30] LABS: Glucose,Whole Blood 99 mg/dL (75-99)
[2021-03-08] MEDS: HYDROcodone/APAP 7.5-325MG 1 EACH TAB PO PRN ×2 (00:56→06:38)
[2021-03-08 06:26] LABS: Glucose,Whole Blood 97 mg/dL (75-99)
[2021-03-08] MEDS: INSULIN ASPART (NovoLOG) 100 UNIT/ML VIAL SQ SCH ×4 (06:26→21:07)
[2021-03-08] MEDS: PANTOPRAZOLE 40 MG TABLET PO SCH (06:38)
[2021-03-08 07:52] LABS: HCT 30.6 % (39.0-53.0); HGB 10.6 gm/dL (13.0-17.5); MCH 29.9 pg (25.0-35.0); MCHC 34.6 g/dL (31.0-37.0); MCV 86.5 fL (80.0-100.0); Mean Platelet Volume 7.4; Platelet Count 214 k/uL (150-450); RBC 3.54 m/uL (4.30-5.90); RDW 13.8 % (11.5-15.5); WBC 11.6 k/uL (3.8-10.6)
[2021-03-08 07:54] LABS: INR 2.9 (<1.2); Prothrombin Time 27.8 sec (9.0-12.0)
--- NOTE | 2021-03-08 07:57 | XR ---
EXAMINATION TYPE: XR chest 2V DATE OF EXAM: 03/08/2021 COMPARISON: 03/07/2021 HISTORY: Shortness of breath TECHNIQUE: Frontal and lateral views of the chest are obtained. FINDINGS: Scattered senescent parenchymal changes noted. Hyperinflation compatible with COPD. Linear basilar basilar atelectasis. No evidence for pneumothorax. Heart size is stable. Mediastinal structures are stable and grossly unremarkable. No evidence for hilar prominence. Degenerative changes dorsal spine. IMPRESSION: 1. Linear basilar basilar atelectasis. No evidence for pneumothorax.
[2021-03-08 08:12] LABS: African American GFR (CKD) >90 (>60 ml/min/1.73 sqM); Anion Gap 9 mmol/L; Blood Urea Nitrogen 18 mg/dL (9-20); Calcium 8.6 mg/dL (8.4-10.2); Carbon Dioxide 23 mmol/L (22-30); Chloride 106 mmol/L (98-107); Glucose 114 mg/dL (74-99); Non-African American GFR(CKD) >90 (>60 ml/min/1.73 sqM); Potassium 4.3 mmol/L (3.5-5.1); Sodium 138 mmol/L (137-145)
[2021-03-08] MEDS: IPRATROPIUM-ALBUTEROL 3 ML NEB INHALATION SCH ×4 (08:28→19:40)
[2021-03-08] MEDS: ASPIRIN 81 MG PO SCH (08:34)
[2021-03-08] MEDS: buPROPion SR 150 MG TABLET.ER PO SCH ×2 (08:34→22:04)
[2021-03-08] MEDS: METOPROLOL TARTRATE 50 MG TAB PO SCH ×2 (08:34→21:11)
[2021-03-08] MEDS: MUPIROCIN 2% OINT 22 GM TUBE TOPICAL SCH ×2 (08:34→21:11)
[2021-03-08] MEDS: ATORVASTATIN 40 MG TAB PO SCH (08:34)
[2021-03-08] MEDS ORDERED: traMADol 50 MG TAB PO PRN (09:11)
[2021-03-08] MEDS ORDERED: FUROSEMIDE 10 MG/ML 2 ML VIAL IV STA (09:35)
[2021-03-08] MEDS: MAGNESIUM HYDROXIDE 2,400 MG/10 ML CUP PO PRN (09:56)
--- NOTE | 2021-03-08 10:19 | P.PN ---
Subjective Progress Note Date: 03/08/21 Principal diagnosis: Unicuspid aortic valve with severe aortic valve regurgitation, moderate left anterior dysfunction, moderate root and ascending dilation with bovine arch, and mild mitral valve regurgitation. Previous medical history of hypertension, acute on chronic systolic heart failure, history of kidney stones, bronchitis, obesity, chronic hypersomnia, previous tobacco dependence, and possible sleep apnea syndrome. Preoperative nasal swab positive for MSSA. POD #4 aortic valve replacement using a 25 mm On-X mechanical valve. Selective non-coronary sinus replacement along with ascending aortic replacement using a 32 mm gel weave straight graft. Exclusion of the left atrial appendage using a 35 mm Atriclip. Intraoperative transesophageal echocardiogram and epi-aortic scanning. Postoperative acute blood loss anemia, expected due to hemodilution and card iopulmonary bypass The patient is currently sitting up in a recliner in the cardiac stepdown unit in no acute distress.does complain of postsurgical pain, denies shortness of breath. Does complain of lack of appetite, otherwise no new concerns. Remains in normal sinus rhythm and hemodynamically stable. Currently on 2 L nasal cannula with oxygen saturation 97%, able to achieve 1500 mL on his incentive spirometry. Patient states he has been ambulatory in the hallway with stand-by assist. Continues on on Coumadin, INR 2.9 this morning. No other new concerns. Objective - Vital Signs Vital signs: Vital Signs Temp 98.4 F 03/08/21 08:00 Pulse 90 03/08/21 08:00 Resp 16 03/08/21 08:00 BP 117/80 03/08/21 08:00 Pulse Ox 97 03/08/21 08:00 Intake & Output 03/07/21 03/08/21 03/08/21 18:59 06:59 18:59 Intake Total 196 Output Total 595 Balance -399 Weight 120.6 kg Intake: IV 76 Lactated Ringers 1,000 ml 40 @ 20 mls/hr IV .Q24H [facility] Rx#:[id number] Pressure Bag 0.9 Sodium 36 Chloride Oral 120 Output: Chest Tube Drainage 20 Mediastinal 20 Urine 575 Other: Voiding Method Urinal Urinal # Voids 1 3 ABP, PAP, CO, CI - Last Documented Arterial Blood Pressure 127/77 Pulmonary Artery Pressure 25/14 Cardiac Output 8.3 Cardiac Index 3.4 - Exam CONSTITUTIONAL: Appears comfortable, cooperative, no acute distress RESPIRATORY: Lungs sounds diminished bilaterally. Respirations even, nonlabored. Currently on 2 L nasal cannula with oxygen saturation 97%. Able to achieve 1500 mL on incentive spirometry. Strong cough. CARDIOVASCULAR: S1, S2 present. Regular rate and rhythm, sinus rhythm on telemetry. Sternum stable. Palpable peripheral pulses bilaterally. No edema present. No calf pain or tenderness noted. Heart hugger in place with patient demonstrating appropriate use. Antiembolism stockings, SCDs present. GASTROINTESTINAL: Abdomen soft, nontender, nondistended. Active bowel sounds present 4 quadrants. Tolerating diet. Positive flatus GENITOURINARY: Continues to void clear, yellow urine. INTEGUMENTARY: Skin is warm and dry with evidence of good perfusion. Anterior chest incision well approximated and covered with dry intact dressing. NEUROLOGIC: Cranial nerves II through XII intact MUSKULOSKELETAL: Able to move all extremities, strength equal bilaterally, gait normal PSYCHIATRIC: Alert and oriented to person place and time, appropriate affect, intact judgment and insight - Allied health notes Allied health notes reviewed: nursing - Labs CBC & Chem 7: 03/08/21 06:37 03/08/21 06:37 Labs: Abnormal Lab Results - Last 24 Hours (Table) 03/07/21 03/08/21 03/08/21 Range/Units 11:51 06:37 06:37 WBC 11.6 H (3.8-10.6) k/uL RBC 3.54 L (4.30-5.90) m/uL Hgb 10.6 L (13.0-17.5) gm/dL Hct 30.6 L (39.0-53.0) % PT 27.8 H (9.0-12.0) sec INR 2.9 H (<1.2) Glucose (74-99) mg/dL POC Glucose (mg/dL) 111 H (75-99) mg/dL 03/08/21 Range/Units 06:37 WBC (3.8-10.6) k/uL RBC (4.30-5.90) m/uL Hgb (13.0-17.5) gm/dL Hct (39.0-53.0) % PT (9.0-12.0) sec INR (<1.2) Glucose 114 H (74-99) mg/dL POC Glucose (mg/dL) (75-99) mg/dL - Imaging and Cardiology Chest x-ray: report reviewed, image reviewed Assessment and Plan Assessment: 1. Unicuspid aortic valve with severe aortic valve regurgitation, status post aortic valve replacement using a 25 mm On-X mechanical valve 2. Moderate left anterior dysfunction, moderate aortic root and ascending aortic dilation with bovine arch, status post selective non-coronary sinus replacement along with ascending aortic replacement using a 32 mm gel weave straight graft 3. Mild mitral valve regurgitation 4. History of hypertension 5. History of acute on chronic systolic heart failure 6. History of kidney stones 7. History of bronchitis 8. Obesity 9. History of chronic hypersomnia and possible sleep apnea syndrome 10. Previous tobacco dependence with preoperative FEV1 77% of predicted 11. Preoperative nasal swab positive for MSSA, treated preoperatively with mupirocin 12. Postoperative acute blood loss anemia, expected due to hemodilution and cardiopulmonary bypass Plan: 1. Continue low dose aspirin, statin, and beta ben. Will increase beta ben therapy as tolerated. Will stop Plavix, SQ heparin. Will start low- dose Cozaar for afterload reduction 2. Wean O2 as tolerated. Encourage incentive spirometry use 10 times every hour while awake. Bronchodilators per pulmonology 3. Increase activity, ambulate as tolerated. PT/OT/cardiac rehab following 4. Will monitor daily labs including PT/INR and chest x-rays. Electrolyte replacement per protocol. Will give 20 mg IV push Lasix today 5. GI/DVT prophylaxis 6. Insulin management per primary care service. Patient is not diabetic, preoperative hemoglobin A1c 5.2%. 7. Pain control with current medication regimen. 8. Patient to receive first postop shower today 9. Strict accurate intake and output, daily weights 11. Will dose Coumadin daily based on INR, goal INR 2-3 the first 3 months, then 1.5-2 thereafter. No Coumadin today 12. discharge planning in progress. Anticipate discharge to home with home care over the weekend as long as INR is therapeutic 13. More recommendations to follow based on patient's progress. Time with Patient: Greater than 30
[2021-03-08 12:12] LABS: Glucose,Whole Blood 110 mg/dL (75-99)
--- NOTE | 2021-03-08 12:31 | P.PN ---
Subjective This is a 51-year-old male past medical history significant for bronchitis, kidney stones, heart failure and hypertension. He follows my office with Dr. Hua. He is status post aortic valve replacement with mechanical valve. Selective known coronary sinus replacement along with ascending aortic replacement and exclusion of the left atrial appendage. Blood pressure 117/80 heart rate 90 afebrile maintaining oxygen saturation on nasal cannula. Laboratory data reviewed, WBC 11.6, hemoglobin 10.6, platelets 214, INR 2.9, sodium 138, potassium 4.3 and creatinine 0.74. Telemetry tracings reveal persistent sinus mechanism. He is seen and examined resting comfortably in the recliner sleeping with his at the bedside. He denies symptoms of chest discomfort, shortness of breath, dizziness or palpitations. Heart regular is in place. GENERAL: Well-appearing, well-nourished and in no acute distress. NECK: Supple without JVD or thyromegaly. LUNGS: Breath sounds clear to auscultation bilaterally. Respiration equal and unlabored. No wheezes, rales or rhonchi. Heart hugger in place. Sternal wound wound stable. HEART: Regular rate and rhythm with mechanical click noted, no rubs or gallops. S1 and S2 heard. EXTREMITIES: Normal range of motion, no edema. No clubbing or cyanosis. Peripheral pulses intact. ASSESSMENT U tricuspid aortic valve status post mechanical aortic valve replacement Hypertension Acute on chronic systolic heart failure Hypertension PLAN Continue current medical regimen per CT surgery. Increase activity as tolerated. Encourage incentive spirometer use. We will continue to follow make recommendations accordingly. Nurse Practitioner note has been reviewed, I agree with a documented findings and plan of care. Patient was seen and examined. Objective - Vital Signs Vital signs: Vital Signs Temp 98.4 F 03/08/21 08:00 Pulse 90 03/08/21 08:00 Resp 16 03/08/21 08:00 BP 117/80 03/08/21 08:00 Pulse Ox 97 03/08/21 08:00 Intake & Output 03/07/21 03/08/21 03/08/21 18:59 06:59 18:59 Intake Total 196 Output Total 595 Balance -399 Weight 120.6 kg Intake: IV 76 Lactated Ringers 1,000 ml 40 @ 20 mls/hr IV .Q24H [facility] Rx#:[id number] Pressure Bag 0.9 Sodium 36 Chloride Oral 120 Output: Chest Tube Drainage 20 Mediastinal 20 Urine 575 Other: Voiding Method Urinal Urinal # Voids 1 3 ABP, PAP, CO, CI - Last Documented Arterial Blood Pressure 127/77 Pulmonary Artery Pressure 25/14 Cardiac Output 8.3 Cardiac Index 3.4 - Labs CBC & Chem 7: 03/08/21 06:37 03/08/21 06:37 Labs: Abnormal Lab Results - Last 24 Hours (Table) 03/07/21 03/08/21 03/08/21 Range/Units 11:51 06:37 06:37 WBC 11.6 H (3.8-10.6) k/uL RBC 3.54 L (4.30-5.90) m/uL Hgb 10.6 L (13.0-17.5) gm/dL Hct 30.6 L (39.0-53.0) % PT 27.8 H (9.0-12.0) sec INR 2.9 H (<1.2) Glucose (74-99) mg/dL POC Glucose (mg/dL) 111 H (75-99) mg/dL 03/08/21 Range/Units 06:37 WBC (3.8-10.6) k/uL RBC (4.30-5.90) m/uL Hgb (13.0-17.5) gm/dL Hct (39.0-53.0) % PT (9.0-12.0) sec INR (<1.2) Glucose 114 H (74-99) mg/dL POC Glucose (mg/dL) (75-99) mg/dL
[2021-03-08] MEDS: KETOROLAC 15 MG/ML 1 ML VIAL IVP SCH ×2 (12:32→17:57)
[2021-03-08] MEDS: LOSARTAN 25 MG TAB PO SCH (12:32)
[2021-03-08] MEDS: HEPARIN SODIUM,PORCINE/PF 5,000 UNIT/0.5 ML SYRINGE SQ SCH (14:30)
--- NOTE | 2021-03-08 15:59 | P.PN ---
Subjective Progress Note Date: 03/08/21 This is a 59-year-old male, who is postop day #1, status post Bentall procedure. 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 The patient had aortic valve replacement using a 25 mm On- X mechanical valve, selected non-coronary sinus replacement along with ascending aortic replacement using a 32 mm Gel weave straight graft, exclusion of the left atrial appendage and intraoperative transesophageal echocardiogram. Currently, the patient's doing well. He is on 4 L nasal cannula. He was extubated within 5 hours post exiting the operating room. The patient is on lactated Ringer's at 50 mL an hour, and Primacor at 0.2 mcg/kg/m. The patient is getting insulin at 3.5 units an hour. Currently, the patient appears to be doing relatively well. White count 18.1, hemoglobin 11.7, hematocrit 32.6, and platelet count normal. Sodium 138, potassium 4.7, chlorides 108, CO2 28, anion gap 2, BUN 9, creatinine 0.81. Chest x-ray shows cardiomegaly and some mild bibasilar atelectasis. The patient is seen today 03/06/2021 in follow-up in the intensive care unit. Postoperative day #2. He is currently sitting up in a chair at the bedside. Awake and alert in no acute distress. Maintaining good O2 saturation in the 90s on 2 L/m per nasal cannula. He has lactated Ringer's at 20 ML's per hour. Insulin drip at 2.5 units per hour. Chest x-ray revealing a developing cardiomegaly with left lower lobe infiltrate/effusion. Mediastinal chest tube remain present. Cordis remains present in the right. Section-Calixto removed. No pneumothorax is evident. White count 17.3. Hemoglobin 10.8. Sodium 134. Potassium 4.2. Creatinine 0.74. He is continued on bronchodilators, heparin for DVT prophylaxis. He is working well with the incentive spirometer. Pulling approximately 1000 ML's. The patient is seen today 03/07/2021 in follow-up in the intensive care unit. This is postoperative day #3. He is currently sitting up in a chair at the bedside. Awake and alert in no acute distress. Chest x-ray still revealing left lower lobe atelectasis. Mediastinal chest tube remains in place. He is on 2 L/m per nasal cannula to maintain O2 saturation in the 90s. Working well with the incentive spirometer. Pulling approximately 1250 ML's. Right IJ Cordis in place. Right radial artery in place. Epicardial wires discontinued. White count 12.8. Hemoglobin 9.5. Platelets 147. INR 1.3. Sodium 1:30. Potassium 4.2. Creatinine 0.74. Warfarin being initiated today. The patient is seen today 03/08/2021 in follow-up on the selective care unit. He is currently sitting up in a chair at the bedside. Awake and alert in no acute distress. Maintaining O2 saturations in the upper 90s on 2 L/m per nasal cannula. Chest x-ray reveals basilar atelectasis. He's been afebrile. Hemodynamically stable. He is pulling approximately 1500 ML's on the incentive spirometer. His been up ambulating with assistance. Remains in sinus rhythm. Anticoagulated with warfarin. INR 2.9. White count 11.6. Hemoglobin 10.6. Creatinine 0.74. Potassium 4.3. Sodium 138. Objective - Vital Signs Vital signs: Vital Signs Temp 98.4 F 03/08/21 08:00 Pulse 90 03/08/21 12:00 Resp 16 03/08/21 12:00 BP 126/73 03/08/21 12:00 Pulse Ox 99 03/08/21 12:00 Intake & Output 03/07/21 03/08/21 03/08/21 18:59 06:59 18:59 Intake Total 196 240 Output Total 595 Balance -399 240 Weight 120.6 kg Intake: IV 76 Lactated Ringers 1,000 ml 40 @ 20 mls/hr IV .Q24H [facility] Rx#:[id number] Pressure Bag 0.9 Sodium 36 Chloride Oral 120 240 Output: Chest Tube Drainage 20 Mediastinal 20 Urine 575 Other: Voiding Method Urinal Urinal Urinal # Voids 1 3 2 ABP, PAP, CO, CI - Last Documented Arterial Blood Pressure 127/77 Pulmonary Artery Pressure 25/14 Cardiac Output 8.3 Cardiac Index 3.4 - Exam GENERAL EXAM: Alert, active, pleasant 51-year-old gentleman, on 2 L nasal cannula, fairly comfortable in no apparent distress. HEAD: Normocephalic. EYES: Normal reaction of pupils, equal size. NOSE: Clear with pink turbinates. THROAT: No erythema or exudates. NECK: Right-sided cordis remains in place No masses, no JVD. CHEST: Sternal dressing dry and intact. Heart Hugger in place LUNGS: Equal air entry with crackles in the bases left greater than right. CVS: S1 and S2 normal with no audible murmur, regular rhythm. ABDOMEN: No hepatosplenomegaly, normal bowel sounds, no guarding or rigidity. SPINE: No scoliosis or deformity SKIN: No rashes CENTRAL NERVOUS SYSTEM: No focal deficits, tone is normal in all 4 extremities. EXTREMITIES: Right radial arterial line present. There is no peripheral edema. No clubbing, no cyanosis. Peripheral pulses are intact. - Labs CBC & Chem 7: 03/08/21 06:37 03/08/21 06:37 Labs: Abnormal Lab Results - Last 24 Hours (Table) 03/08/21 03/08/21 03/08/21 Range/Units 06:37 06:37 06:37 WBC 11.6 H (3.8-10.6) k/uL RBC 3.54 L (4.30-5.90) m/uL Hgb 10.6 L (13.0-17.5) gm/dL Hct 30.6 L (39.0-53.0) % PT 27.8 H (9.0-12.0) sec INR 2.9 H (<1.2) Glucose 114 H (74-99) mg/dL POC Glucose (mg/dL) (75-99) mg/dL 03/08/21 Range/Units 12:10 WBC (3.8-10.6) k/uL RBC (4.30-5.90) m/uL Hgb (13.0-17.5) gm/dL Hct (39.0-53.0) % PT (9.0-12.0) sec INR (<1.2) Glucose (74-99) mg/dL POC Glucose (mg/dL) 110 H (75-99) mg/dL Assessment and Plan Assessment: 1 Unicuspid aortic valve with severe aortic valve regurgitation, status post aortic valve replacement with and On-X mechanical valve. Postoperative day #4. 2 Mild mitral valve regurgitation 3 Hypertension 4 History of acute on chronic systolic congestive heart failure 6 History of nephrolithiasis 7 Obesity 8 Suspected obstructive sleep apnea, chronic hypersomnia 9 History of chronic tobacco dependence, FEV1 value 77% of predicted Plan: The patient was seen and evaluated by Dr. Echevarria Chest x-ray and labs reviewed Continue incentive spirometer and cough and deep breathing exercises Increase his activity as tolerated We will continue to follow I, the cosigning physician, performed a history & physical examination of the patient. Lungs sounds crackles in the bases left greater than right. Maintaining good O2 saturations in the 90s on 2 L/m per nasal cannula. I discussed the assessment and plan of care with my nurse practitioner, Antonia Browne. I attest to the above note as dictated by her.
[2021-03-08 17:30] LABS: Glucose,Whole Blood 92 mg/dL (75-99)
[2021-03-08 20:47] LABS: Glucose,Whole Blood 123 mg/dL (75-99)
[2021-03-08] MEDS: SENNOSIDES-DOCUSATE SODIUM 1 EACH TAB PO SCH (21:11)
[2021-03-09] MEDS: KETOROLAC 15 MG/ML 1 ML VIAL IVP SCH ×5 (00:24→23:05)
[2021-03-09 06:14] LABS: Glucose,Whole Blood 131 mg/dL (75-99)
[2021-03-09] MEDS: PANTOPRAZOLE 40 MG TABLET PO SCH (06:33)
[2021-03-09] MEDS: INSULIN ASPART (NovoLOG) 100 UNIT/ML VIAL SQ SCH ×4 (06:33→20:33)
[2021-03-09] MEDS: IPRATROPIUM-ALBUTEROL 3 ML NEB INHALATION SCH ×4 (07:37→20:35)
[2021-03-09 07:43] LABS: HCT 30.5 % (39.0-53.0); HGB 10.1 gm/dL (13.0-17.5); MCH 28.9 pg (25.0-35.0); MCHC 33.1 g/dL (31.0-37.0); MCV 87.3 fL (80.0-100.0); Mean Platelet Volume 6.9; Platelet Count 260 k/uL (150-450); RBC 3.49 m/uL (4.30-5.90); RDW 14.2 % (11.5-15.5); WBC 10.1 k/uL (3.8-10.6)
[2021-03-09 07:49] LABS: INR 2.1 (<1.2); Prothrombin Time 20.2 sec (9.0-12.0)
[2021-03-09 07:59] LABS: African American GFR (CKD) >90 (>60 ml/min/1.73 sqM); Anion Gap 10 mmol/L; Blood Urea Nitrogen 17 mg/dL (9-20); Calcium 8.7 mg/dL (8.4-10.2); Carbon Dioxide 27 mmol/L (22-30); Chloride 102 mmol/L (98-107); Glucose 115 mg/dL (74-99); Non-African American GFR(CKD) >90 (>60 ml/min/1.73 sqM); Sodium 139 mmol/L (137-145)
[2021-03-09] MEDS ORDERED: FUROSEMIDE 10 MG/ML 2 ML VIAL IV STA (08:24)
[2021-03-09] MEDS: ASPIRIN 81 MG PO SCH (08:51)
[2021-03-09] MEDS: MUPIROCIN 2% OINT 22 GM TUBE TOPICAL SCH (08:52)
[2021-03-09] MEDS: METOPROLOL TARTRATE 50 MG TAB PO SCH ×2 (08:52→20:51)
[2021-03-09] MEDS: ATORVASTATIN 40 MG TAB PO SCH (08:52)
[2021-03-09] MEDS: buPROPion SR 150 MG TABLET.ER PO SCH ×2 (08:52→20:51)
--- NOTE | 2021-03-09 09:12 | P.PN ---
Subjective Progress Note Date: 03/09/21 Principal diagnosis: Unicuspid aortic valve with severe aortic valve regurgitation, moderate left anterior dysfunction, moderate root and ascending dilation with bovine arch, and mild mitral valve regurgitation. Previous medical history of hypertension, acute on chronic systolic heart failure, history of kidney stones, bronchitis, obesity, chronic hypersomnia, previous tobacco dependence, and possible sleep apnea syndrome. Preoperative nasal swab positive for MSSA. POD #5 aortic valve replacement using a 25 mm On-X mechanical valve. Selective non-coronary sinus replacement along with ascending aortic replacement using a 32 mm gel weave straight graft. Exclusion of the left atrial appendage using a 35 mm Atriclip. Intraoperative transesophageal echocardiogram and epi-aortic scanning. Postoperative acute blood loss anemia, expected due to hemodilution and card iopulmonary bypass The patient is currently ambulating in the hallway on the cardiac stepdown unit in no acute distress. States postsurgical pain better controlled and in fact has had no narcotics in 24 hours, complains of shortness of breath when laying flat. Does complain of lack of appetite, otherwise no new concerns. Remains in normal sinus rhythm and hemodynamically stable. Currently on room air with oxygen saturation 96%, able to achieve 2000 mL on his incentive spirometry. Continues on on Coumadin, INR 2.1 this morning. No other new concerns. Objective - Vital Signs Vital signs: Vital Signs Temp 98.3 F 03/09/21 08:00 Pulse 90 03/09/21 08:00 Resp 16 03/09/21 08:00 BP 129/67 03/09/21 08:00 Pulse Ox 93 L 03/09/21 08:00 Intake & Output 03/08/21 03/09/21 03/09/21 18:59 06:59 18:59 Intake Total 240 480 Output Total 1100 175 Balance 240 -620 -175 Weight 119.3 kg Intake: Oral 240 480 Output: Urine 1100 175 Other: Voiding Method Urinal Urinal # Voids 2 2 ABP, PAP, CO, CI - Last Documented Arterial Blood Pressure 127/77 Pulmonary Artery Pressure 25/14 Cardiac Output 8.3 Cardiac Index 3.4 - Exam CONSTITUTIONAL: Appears comfortable, cooperative, no acute distress RESPIRATORY: Lungs sounds diminished bilaterally. Respirations even, nonlabored. Currently on room air with oxygen saturation 96%. Able to achieve 2000 mL on incentive spirometry. Strong cough. CARDIOVASCULAR: S1, S2 present. Regular rate and rhythm, sinus rhythm on telemetry. Sternum stable. Palpable peripheral pulses bilaterally. No edema present. No calf pain or tenderness noted. Heart hugger in place with patient demonstrating appropriate use. Antiembolism stockings, SCDs present. GASTROINTESTINAL: Abdomen soft, nontender, nondistended. Active bowel sounds present 4 quadrants. Tolerating diet. Positive bowel movement 7/2 per patient GENITOURINARY: Continues to void clear, yellow urine. INTEGUMENTARY: Skin is warm and dry with evidence of good perfusion. Anterior chest incision well approximated and covered with dry intact dressing. NEUROLOGIC: Cranial nerves II through XII intact MUSKULOSKELETAL: Able to move all extremities, strength equal bilaterally, gait normal PSYCHIATRIC: Alert and oriented to person place and time, appropriate affect, intact judgment and insight - Allied health notes Allied health notes reviewed: nursing - Labs CBC & Chem 7: 03/09/21 06:23 03/09/21 06:23 Labs: Abnormal Lab Results - Last 24 Hours (Table) 03/08/21 03/08/21 03/09/21 Range/Units 12:10 20:44 06:12 RBC (4.30-5.90) m/uL Hgb (13.0-17.5) gm/dL Hct (39.0-53.0) % PT (9.0-12.0) sec INR (<1.2) Glucose (74-99) mg/dL POC Glucose (mg/dL) 110 H 123 H 131 H (75-99) mg/dL 03/09/21 03/09/21 03/09/21 Range/Units 06:23 06:23 06:23 RBC 3.49 L (4.30-5.90) m/uL Hgb 10.1 L (13.0-17.5) gm/dL Hct 30.5 L (39.0-53.0) % PT 20.2 H (9.0-12.0) sec INR 2.1 H (<1.2) Glucose 115 H (74-99) mg/dL POC Glucose (mg/dL) (75-99) mg/dL - Imaging and Cardiology Chest x-ray: image reviewed Assessment and Plan Assessment: 1. Unicuspid aortic valve with severe aortic valve regurgitation, status post aortic valve replacement using a 25 mm On-X mechanical valve 2. Moderate left anterior dysfunction, moderate aortic root and ascending aortic dilation with bovine arch, status post selective non-coronary sinus replacement along with ascending aortic replacement using a 32 mm gel weave straight graft 3. Mild mitral valve regurgitation 4. History of hypertension 5. History of acute on chronic systolic heart failure 6. History of kidney stones 7. History of bronchitis 8. Obesity 9. History of chronic hypersomnia and possible sleep apnea syndrome 10. Previous tobacco dependence with preoperative FEV1 77% of predicted 11. Preoperative nasal swab positive for MSSA, treated preoperatively with mupirocin 12. Postoperative acute blood loss anemia, expected due to hemodilution and cardiopulmonary bypass Plan: 1. Continue low dose aspirin, statin, Cozaar, and beta ben. Will increase beta ben therapy as tolerated. 2. Encourage incentive spirometry use 10 times every hour while awake. Bronchodilators per pulmonology 3. Increase activity, ambulate as tolerated. PT/OT/cardiac rehab following 4. Will monitor daily labs including PT/INR and chest x-rays. Electrolyte replacement per protocol. Will give 20 mg IV push Lasix today 5. GI/DVT prophylaxis 6. Insulin management per primary care service. Patient is not diabetic, preoperative hemoglobin A1c 5.2%. 7. Pain control with current medication regimen. 8. Patient to shower daily 9. Strict accurate intake and output, daily weights 11. Will dose Coumadin daily based on INR, goal INR 2-3 the first 3 months, then 1.5-2 thereafter. 12. Discharge planning in progress. Anticipate discharge to home with home care in the next 24-48 hours 13. More recommendations to follow based on patient's progress. Time with Patient: Greater than 30
--- NOTE | 2021-03-09 11:35 | P.PN ---
Subjective Progress Note Date: 03/09/21 This is a 59-year-old male, who is postop day #1, status post Bentall procedure. 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 The patient had aortic valve replacement using a 25 mm On- X mechanical valve, selected non-coronary sinus replacement along with ascending aortic replacement using a 32 mm Gel weave straight graft, exclusion of the left atrial appendage and intraoperative transesophageal echocardiogram. Currently, the patient's doing well. He is on 4 L nasal cannula. He was extubated within 5 hours post exiting the operating room. The patient is on lactated Ringer's at 50 mL an hour, and Primacor at 0.2 mcg/kg/m. The patient is getting insulin at 3.5 units an hour. Currently, the patient appears to be doing relatively well. White count 18.1, hemoglobin 11.7, hematocrit 32.6, and platelet count normal. Sodium 138, potassium 4.7, chlorides 108, CO2 28, anion gap 2, BUN 9, creatinine 0.81. Chest x-ray shows cardiomegaly and some mild bibasilar atelectasis. The patient is seen today 03/06/2021 in follow-up in the intensive care unit. Postoperative day #2. He is currently sitting up in a chair at the bedside. Awake and alert in no acute distress. Maintaining good O2 saturation in the 90s on 2 L/m per nasal cannula. He has lactated Ringer's at 20 ML's per hour. Insulin drip at 2.5 units per hour. Chest x-ray revealing a developing cardiomegaly with left lower lobe infiltrate/effusion. Mediastinal chest tube remain present. Cordis remains present in the right. Eitzen-Calixto removed. No pneumothorax is evident. White count 17.3. Hemoglobin 10.8. Sodium 134. Potassium 4.2. Creatinine 0.74. He is continued on bronchodilators, heparin for DVT prophylaxis. He is working well with the incentive spirometer. Pulling approximately 1000 ML's. The patient is seen today 03/07/2021 in follow-up in the intensive care unit. This is postoperative day #3. He is currently sitting up in a chair at the bedside. Awake and alert in no acute distress. Chest x-ray still revealing left lower lobe atelectasis. Mediastinal chest tube remains in place. He is on 2 L/m per nasal cannula to maintain O2 saturation in the 90s. Working well with the incentive spirometer. Pulling approximately 1250 ML's. Right IJ Cordis in place. Right radial artery in place. Epicardial wires discontinued. White count 12.8. Hemoglobin 9.5. Platelets 147. INR 1.3. Sodium 1:30. Potassium 4.2. Creatinine 0.74. Warfarin being initiated today. The patient is seen today 03/08/2021 in follow-up on the selective care unit. He is currently sitting up in a chair at the bedside. Awake and alert in no acute distress. Maintaining O2 saturations in the upper 90s on 2 L/m per nasal cannula. Chest x-ray reveals basilar atelectasis. He's been afebrile. Hemodynamically stable. He is pulling approximately 1500 ML's on the incentive spirometer. His been up ambulating with assistance. Remains in sinus rhythm. Anticoagulated with warfarin. INR 2.9. White count 11.6. Hemoglobin 10.6. Creatinine 0.74. Potassium 4.3. Sodium 138. The patient is seen today 03/09/2021 in follow-up on the selective care unit. Currently awake and alert in no acute distress. Sitting up in a chair at the bedside. Main complaint is of fatigue today. He is maintaining good O2 saturations in the 90s on room air. Working well with the incentive spirometry. Pulling approximately 2000 ML's. Ambulating with assistance. Chest x-ray shows minimal atelectasis at the bases. White count 10.1. Hemoglobin 10.1. INR 2.1. Sodium 139. Potassium 4.0. Creatinine 0.81. Objective - Vital Signs Vital signs: Vital Signs Temp 98.3 F 03/09/21 08:00 Pulse 89 03/09/21 11:25 Resp 16 03/09/21 11:25 BP 129/67 03/09/21 08:00 Pulse Ox 93 L 03/09/21 08:00 Intake & Output 03/08/21 03/09/21 03/09/21 18:59 06:59 18:59 Intake Total 240 480 240 Output Total 1100 175 Balance 240 -620 65 Weight 119.3 kg Intake: Oral 240 480 240 Output: Urine 1100 175 Other: Voiding Method Urinal Urinal # Voids 2 2 ABP, PAP, CO, CI - Last Documented Arterial Blood Pressure 127/77 Pulmonary Artery Pressure 25/14 Cardiac Output 8.3 Cardiac Index 3.4 - Exam GENERAL EXAM: Alert, active, pleasant 51-year-old gentleman, on room air, fairly comfortable in no apparent distress. HEAD: Normocephalic. EYES: Normal reaction of pupils, equal size. NOSE: Clear with pink turbinates. THROAT: No erythema or exudates. NECK: Right-sided cordis remains in place No masses, no JVD. CHEST: Sternal dressing dry and intact. Heart Hugger in place LUNGS: Equal air entry with crackles in the bases left greater than right. CVS: S1 and S2 normal with no audible murmur, regular rhythm. ABDOMEN: No hepatosplenomegaly, normal bowel sounds, no guarding or rigidity. SPINE: No scoliosis or deformity SKIN: No rashes CENTRAL NERVOUS SYSTEM: No focal deficits, tone is normal in all 4 extremities. EXTREMITIES: Right radial arterial line present. There is no peripheral edema. No clubbing, no cyanosis. Peripheral pulses are intact. - Labs CBC & Chem 7: 03/09/21 06:23 03/09/21 06:23 Labs: Abnormal Lab Results - Last 24 Hours (Table) 03/08/21 03/08/21 03/09/21 Range/Units 12:10 20:44 06:12 RBC (4.30-5.90) m/uL Hgb (13.0-17.5) gm/dL Hct (39.0-53.0) % PT (9.0-12.0) sec INR (<1.2) Glucose (74-99) mg/dL POC Glucose (mg/dL) 110 H 123 H 131 H (75-99) mg/dL 03/09/21 03/09/21 03/09/21 Range/Units 06:23 06:23 06:23 RBC 3.49 L (4.30-5.90) m/uL Hgb 10.1 L (13.0-17.5) gm/dL Hct 30.5 L (39.0-53.0) % PT 20.2 H (9.0-12.0) sec INR 2.1 H (<1.2) Glucose 115 H (74-99) mg/dL POC Glucose (mg/dL) (75-99) mg/dL Assessment and Plan Assessment: 1 Unicuspid aortic valve with severe aortic valve regurgitation, status post aortic valve replacement with and On-X mechanical valve. Postoperative day #5. 2 Mild mitral valve regurgitation 3 Hypertension 4 History of acute on chronic systolic congestive heart failure 6 History of nephrolithiasis 7 Obesity 8 Suspected obstructive sleep apnea, chronic hypersomnia 9 History of chronic tobacco dependence, FEV1 value 77% of predicted Plan: The patient was seen and evaluated by Dr. Echevarria Chest x-ray and labs reviewed Continue incentive spirometer and cough and deep breathing exercises Increase his activity as tolerated Home once cleared by CT services We will continue to follow I, the cosigning physician, performed a history & physical examination of the patient. Lungs sounds crackles in the bases left greater than right. Maintaining good O2 saturations in the 90s on room air. I discussed the assessment and plan of care with my nurse practitioner, Antonia Browne. I attest to the above note as dictated by her.
[2021-03-09 12:15] LABS: Glucose,Whole Blood 88 mg/dL (75-99)
[2021-03-09] MEDS: LOSARTAN 25 MG TAB PO SCH (12:17)
--- NOTE | 2021-03-09 14:04 | P.PN ---
Subjective Progress Note Date: 03/09/21 Patient was interviewed and examined sitting up in a chair. He has day 5 status post mechanical aortic valve replacement with aortic root repair. Patient reports continued pain and discomfort, however pain medicine does help. He is not complaining of any significant chest pain or shortness of breath at this time. GENERAL: Well-appearing, well-nourished and in no acute distress. NECK: Supple without JVD or thyromegaly. LUNGS: Breath sounds clear to auscultation bilaterally. Respiration equal and unlabored. No wheezes, rales or rhonchi. Heart hugger in place. HEART: Regular rate and rhythm without murmurs, rubs or gallops. S1 and S2 heard. Mechanical click noted. EXTREMITIES: Normal range of motion, no edema. No clubbing or cyanosis. Peripheral pulses intact and strong. VITALS: Temp 98.3, pulse 90, respiratory rate 16, blood pressure 129/67, O2 sat 93% on room air TELEMETRY: Patient is normal sinus rhythm with a first-degree heart block on telemetry LABS: [WBC 10.1, hemoglobin 10.1, PTT 20.2, INR 2.1, sodium 139, potassium 4.0, BUNs 17, creatinine 0.81, glucose 1:15] IMPRESSION: [U tricuspid aortic valve status post mechanical aortic valve replacement Hypertension Acute on chronic systolic heart failure Hypertension] PLAN: Continue current medical regimen for CT surgery Increase activity as tolerated Continue using incentive spirometer We will continue to follow make recommendations accordingly The patient has been seen and evaluated. Plan of care has been reviewed and agreed upon by Dr. Eastman. Objective - Vital Signs Vital signs: Vital Signs Temp 97.7 F 03/09/21 12:00 Pulse 93 03/09/21 12:00 Resp 16 03/09/21 12:00 BP 139/71 03/09/21 12:00 Pulse Ox 94 L 03/09/21 12:00 Intake & Output 03/08/21 03/09/21 03/09/21 18:59 06:59 18:59 Intake Total 240 480 240 Output Total 1100 175 Balance 240 -620 65 Weight 119.3 kg Intake: Oral 240 480 240 Output: Urine 1100 175 Other: Voiding Method Urinal Urinal # Voids 2 2 ABP, PAP, CO, CI - Last Documented Arterial Blood Pressure 127/77 Pulmonary Artery Pressure 25/14 Cardiac Output 8.3 Cardiac Index 3.4 - Labs CBC & Chem 7: 03/09/21 06:23 03/09/21 06:23 Labs: Abnormal Lab Results - Last 24 Hours (Table) 03/08/21 03/09/21 03/09/21 Range/Units 20:44 06:12 06:23 RBC 3.49 L (4.30-5.90) m/uL Hgb 10.1 L (13.0-17.5) gm/dL Hct 30.5 L (39.0-53.0) % PT (9.0-12.0) sec INR (<1.2) Glucose (74-99) mg/dL POC Glucose (mg/dL) 123 H 131 H (75-99) mg/dL 03/09/21 03/09/21 Range/Units 06:23 06:23 RBC (4.30-5.90) m/uL Hgb (13.0-17.5) gm/dL Hct (39.0-53.0) % PT 20.2 H (9.0-12.0) sec INR 2.1 H (<1.2) Glucose 115 H (74-99) mg/dL POC Glucose (mg/dL) (75-99) mg/dL
--- NOTE | 2021-03-09 15:54 | XR ---
EXAMINATION TYPE: XR chest 2V DATE OF EXAM: 03/09/2021 COMPARISON: 03-27 HISTORY: 51-year-old male post cardiac surgery TECHNIQUE: PA and lateral views FINDINGS: Median sternotomy wires are present with post-CABG clips. Heart mildly enlarged. Diffuse interstitial /vascular prominence. Trace effusions and mild patchy left basilar opacity. IMPRESSION: Similar mild pulmonary vascular congestion with trace effusions and mild patchy left basilar atelecta sis.
[2021-03-09 17:12] LABS: Glucose,Whole Blood 109 mg/dL (75-99)
[2021-03-09] MEDS ORDERED: WARFARIN 5 MG TAB PO ONE (18:00)
[2021-03-09] MEDS: ACETAMINOPHEN TAB 325 MG TAB PO PRN (20:51)
[2021-03-09] MEDS: SENNOSIDES-DOCUSATE SODIUM 1 EACH TAB PO SCH (20:51)
[2021-03-09 20:55] LABS: Glucose,Whole Blood 110 mg/dL (75-99)
[2021-03-09 22:39] VITALS: TEMP 98.1
[2021-03-10] MEDS: ACETAMINOPHEN TAB 325 MG TAB PO PRN (05:11)
[2021-03-10] MEDS: INSULIN ASPART (NovoLOG) 100 UNIT/ML VIAL SQ SCH (06:27)
[2021-03-10] MEDS: PANTOPRAZOLE 40 MG TABLET PO SCH (06:29)
[2021-03-10] MEDS: KETOROLAC 15 MG/ML 1 ML VIAL IVP SCH ×2 (06:29→11:10)
[2021-03-10 06:32] LABS: Glucose,Whole Blood 119 mg/dL (75-99)
--- NOTE | 2021-03-10 07:56 | P.PN ---
Subjective Progress Note Date: 03/10/21 Principal diagnosis: Unicuspid aortic valve with severe aortic valve regurgitation, moderate left anterior dysfunction, moderate root and ascending dilation with bovine arch, and mild mitral valve regurgitation. Previous medical history of hypertension, acute on chronic systolic heart failure, history of kidney stones, bronchitis, obesity, chronic hypersomnia, previous tobacco dependence, and possible sleep apnea syndrome. Preoperative nasal swab positive for MSSA. POD #6 aortic valve replacement using a 25 mm On-X mechanical valve. Selective non-coronary sinus replacement along with ascending aortic replacement using a 32 mm gel weave straight graft. Exclusion of the left atrial appendage using a 35 mm Atriclip. Intraoperative transesophageal echocardiogram and epi-aortic scanning. Postoperative acute blood loss anemia, expected due to hemodilution and card iopulmonary bypass The patient is currently sitting up in a recliner on the cardiac stepdown unit in no acute distress eating breakfast. States postsurgical pain better controlled, states shortness of breath is better. Does complain of lack of appetite, lack of sleep, otherwise no new concerns. Remains in normal sinus rhythm and hemodynamically stable. Currently on room air with oxygen saturation 95%, able to achieve 2500 mL on his incentive spirometry. Continues on on Coumadin. Requesting to go home today. No other new concerns. Objective - Vital Signs Vital signs: Vital Signs Temp 98.1 F 03/09/21 20:00 Pulse 90 03/10/21 04:00 Resp 18 03/10/21 04:00 BP 134/78 03/10/21 04:00 Pulse Ox 95 03/10/21 04:00 Intake & Output 03/09/21 03/10/21 03/10/21 18:59 06:59 18:59 Intake Total 840 960 Output Total 1125 300 Balance -285 660 Weight 119 kg Intake: Oral 840 960 Output: Urine 1125 300 Other: Voiding Method Urinal # Voids 1 ABP, PAP, CO, CI - Last Documented Arterial Blood Pressure 127/77 Pulmonary Artery Pressure 25/14 Cardiac Output 8.3 Cardiac Index 3.4 - Exam CONSTITUTIONAL: Appears comfortable, cooperative, no acute distress RESPIRATORY: Lungs sounds diminished bilaterally. Respirations even, nonlabored. Currently on room air with oxygen saturation 95%. Able to achieve 2500 mL on incentive spirometry. Strong cough. CARDIOVASCULAR: S1, S2 present. Regular rate and rhythm, sinus rhythm on telemetry. Sternum stable. Palpable peripheral pulses bilaterally. No edema present. No calf pain or tenderness noted. Heart hugger in place with patient demonstrating appropriate use. Antiembolism stockings, SCDs present. GASTROINTESTINAL: Abdomen soft, nontender, nondistended. Active bowel sounds present 4 quadrants. Tolerating diet. Positive bowel movement 7/2 per patient GENITOURINARY: Continues to void clear, yellow urine. INTEGUMENTARY: Skin is warm and dry with evidence of good perfusion. Anterior chest incision well approximated NEUROLOGIC: Cranial nerves II through XII intact MUSKULOSKELETAL: Able to move all extremities, strength equal bilaterally, gait normal PSYCHIATRIC: Alert and oriented to person place and time, appropriate affect, intact judgment and insight - Allied health notes Allied health notes reviewed: nursing - Labs CBC & Chem 7: 03/09/21 06:23 03/09/21 06:23 Labs: Abnormal Lab Results - Last 24 Hours (Table) 03/09/21 03/09/21 03/09/21 Range/Units 06:23 17:09 20:26 Glucose 115 H (74-99) mg/dL POC Glucose (mg/dL) 109 H 110 H (75-99) mg/dL 03/10/21 Range/Units 06:22 Glucose (74-99) mg/dL POC Glucose (mg/dL) 119 H (75-99) mg/dL - Imaging and Cardiology Chest x-ray: image reviewed Assessment and Plan Assessment: 1. Unicuspid aortic valve with severe aortic valve regurgitation, status post aortic valve replacement using a 25 mm On-X mechanical valve 2. Moderate left anterior dysfunction, moderate aortic root and ascending aortic dilation with bovine arch, status post selective non-coronary sinus replacement along with ascending aortic replacement using a 32 mm gel weave straight graft 3. Mild mitral valve regurgitation 4. History of hypertension 5. History of acute on chronic systolic heart failure 6. History of kidney stones 7. History of bronchitis 8. Obesity 9. History of chronic hypersomnia and possible sleep apnea syndrome 10. Previous tobacco dependence with preoperative FEV1 77% of predicted 11. Preoperative nasal swab positive for MSSA, treated preoperatively with mupirocin 12. Postoperative acute blood loss anemia, expected due to hemodilution and cardiopulmonary bypass Plan: 1. Continue low dose aspirin, statin, Cozaar, and beta ben. 2. Encourage incentive spirometry use 10 times every hour while awake. Bronchodilators per pulmonology 3. Increase activity, ambulate as tolerated. PT/OT/cardiac rehab following 4. Will monitor daily labs including PT/INR and chest x-rays. Electrolyte replacement per protocol. 5. GI/DVT prophylaxis 6. Insulin management per primary care service. Patient is not diabetic, preoperative hemoglobin A1c 5.2%. 7. Pain control with current medication regimen. 8. Patient to shower daily 9. Strict accurate intake and output, daily weights 11. Will dose Coumadin daily based on INR, goal INR 2-3 the first 3 months, then 1.5-2 thereafter. 12. Discharge planning in progress. Anticipate discharge to home with home care this afternoon 13. More recommendations to follow based on patient's progress. Time with Patient: Greater than 30
[2021-03-10 08:02] LABS: HCT 27.6 % (39.0-53.0); HGB 9.6 gm/dL (13.0-17.5); MCH 29.8 pg (25.0-35.0); MCHC 34.8 g/dL (31.0-37.0); MCV 85.8 fL (80.0-100.0); Mean Platelet Volume 6.9; Platelet Count 303 k/uL (150-450); Poikilocytosis Slight; RBC 3.22 m/uL (4.30-5.90); WBC 10.5 k/uL (3.8-10.6)
[2021-03-10 08:13] LABS: INR 1.9 (<1.2); Prothrombin Time 19.1 sec (9.0-12.0)
[2021-03-10] MEDS: IPRATROPIUM-ALBUTEROL 3 ML NEB INHALATION SCH (08:20)
[2021-03-10 08:22] LABS: African American GFR (CKD) >90 (>60 ml/min/1.73 sqM); Anion Gap 6 mmol/L; Blood Urea Nitrogen 20 mg/dL (9-20); Calcium 8.8 mg/dL (8.4-10.2); Carbon Dioxide 30 mmol/L (22-30); Chloride 104 mmol/L (98-107); Glucose 108 mg/dL (74-99); Non-African American GFR(CKD) >90 (>60 ml/min/1.73 sqM); Potassium 4.4 mmol/L (3.5-5.1); Sodium 140 mmol/L (137-145)
[2021-03-10 08:39] VITALS: BP 137/77; PULSE 87; RESP 20
--- NOTE | 2021-03-10 08:39 | XR ---
EXAMINATION TYPE: XR chest 2V DATE OF EXAM: 03/10/2021 COMPARISON: 03/09/2021 and prior HISTORY: Postcardiac surgery TECHNIQUE: Frontal and lateral views of the chest are obtained. FINDINGS AND IMPRESSION: Stable mild pulmonary vascular congestion. Stable left lower lobe opacity atelectasis and/or infiltrate. Stable trace bilateral effusions. Stable enlarged cardiomediastinal silhouette with postsurgical changes. No pneumothorax. No acute osseous abnormality. Overall there is no significant change since 03/09/2021.
[2021-03-10] MEDS ORDERED: FUROSEMIDE 10 MG/ML 2 ML VIAL IV STA (08:51)
[2021-03-10] MEDS: ASPIRIN 81 MG PO SCH (09:35)
[2021-03-10] MEDS: METOPROLOL TARTRATE 50 MG TAB PO SCH (09:35)
[2021-03-10] MEDS: buPROPion SR 150 MG TABLET.ER PO SCH (09:36)
[2021-03-10] MEDS: ATORVASTATIN 40 MG TAB PO SCH (09:36)
--- NOTE | 2021-03-10 10:52 | P.DS ---
Providers Date of admission: 03/04/21 05:43 Expected date of discharge: 03/10/21 Attending physician: Teena Herman Consults: 03/04/21 15:30 Consult Physician Routine Consulting Provider: Antonio Echevarria Consult Reason/Comments: Registered Nurse Behavioral Health Consult: post cardiac surgery Do you want consulting provider notified?: Yes Consult Physician Routine Consulting Provider: Nito Rosas Consult Reason/Comments: medical management Do you want consulting provider notified?: Yes Consult Physician Routine Consulting Provider: Jonny Saez Consult Reason/Comments: Ager Operator Consult: post cardiac surgery Do you want consulting provider notified?: Yes Primary care physician: Sagar Shannon [facility] Course: FINAL DIAGNOSIS: 1. Unicuspid aortic valve severe aortic valve regurgitation 2. Moderate left ventricular dysfunction, EF 35-40% 3. Moderate root and ascending dilation with bovine arch 4. Mild mitral valve regurgitation 5. History of hypertension 6. Chronic systolic heart failure 7. History of kidney stones 8. Bronchitis 9. Obesity 10. Chronic hypersomnia 11. Previous tobacco dependence 12. Preoperative nasal swab positive for MSSA 13. Postoperative acute blood loss anemia, expected PRINCIPAL PROCEDURE: 1. Aortic valve replacement using a 25 mm On-X mechanical valve 2. Selective non-coronary sinus replacement along with ascending aortic replacement using a 32 mm Gelweave straight graft 3. Exclusion of the left atrial appendage using a 35 mm AtriClip 4. Intraoperative transesophageal echocardiogram and epi-aortic scanning HISTORY OF PRESENT ILLNESS: This is a 51-year-old active gentleman who follows on an outpatient basis with Dr. Fabián Shannon. He had been experiencing shortness of breath particularly with laying down causing him to get very little sleep. In addition he reported lower extremity edema. Upon further questioning the patient stated he thought his symptoms had been going on for quite some time, possibly even longer than a year, but had gotten worse most recently. He was admitted to [facility] at the end of December for evaluation and workup by cardiology for new onset systolic congestive heart failure. Transthoracic echocardiogram demonstrated severely dilated left ventricle, moderate global hypokinesis of the left ventricle, moderate to severely impaired LV function with EF 30-35%, moderately dilated left atrium, severe aortic regurgitation with a functionally bicuspid aortic valve, peak/mean gradient 15.43/8.68 mmHg, mild mitral regurgitation, mild tricuspid regurgitation with moderate pulmonary hypertension, and no enlargement of the aortic root. For further evaluation he underwent YOVANY and cardiac catheterization. The YOVANY confirmed dilated left ventricle with impaired systolic function and ejection fraction 30-35%, bicuspid aortic valve with fusion of the right and non-coronary cusp, severe aortic regurgitation, moderate mitral regurgitation, and mildly dilated aortic root. Cardiac catheterization revealed normal coronary angiogram with elevated filling pressures and mildly dilated aortic root as well as severe aortic insufficiency. Consultation was placed to Dr. Herman from cardiothoracic surgery. He was recommended to undergo aortic valve replacement with replacement of the ascending aorta. The usual perioperative course was discussed in detail with the patient and his family, all risks and benefits were explained, all questions were answered, and consent was obtained to proceed with surgery. The patient was discharged to home on maximal medical therapy to return as an outpatient for surgery after obtaining dental clearance. HOSPITAL COURSE: The patient was brought to the hospital on 02/24/2021, taken to the preoperative area, prepared in the usual fashion, and subsequently taken to the operating room where Dr. Herman performed mechanical aortic valve replacement along with selective non-coronary sinus replacement and ascending aortic replacement. Upon completion of surgery the patient was transferred to the cardiovascular intensive care unit where he was recovered and monitored hemodynamically. He was extubated, all lines, tubes, and drips were discontinued when appropriate, and he was transferred to 3 S cardiac stepdown unit for further monitoring and rehabilitation. His oxygen was titrated down, he continued to work with physical and occupational therapy, he was tolerating oral diet, his pain was controlled, and he was ready to be discharged to home with [facility] care on postoperative day #6. He received written and verbal instruction regarding his medications, activity restrictions, signs and symptoms requiring physician notification, and follow-up appointments. He is to have PT/INR to be drawn Thursday, Thursday, and by home care with Coumadin dosing per cardiothoracic surgery until follow-up with cardiology. COMPLICATIONS: The patient experienced no postoperative complications. Patient Condition at Discharge: Stable Plan - Discharge Summary Discharge Rx Participant: No New Discharge Prescriptions: New Warfarin [Coumadin] 2.5 mg PO DAILY #120 tab Sennosides-Docusate Sodium [Senokot-S] 2 each PO HS PRN tab PRN Reason: Constipation Acetaminophen Tab [Tylenol] 650 mg PO Q4HR PRN tab PRN Reason: Fever And/ Or Pain Losartan [Cozaar] 25 mg PO DAILY@1200 #30 tab Atorvastatin [Lipitor] 40 mg PO DAILY #30 tab Metoprolol Tartrate [Lopressor] 50 mg PO BID #60 tab Pantoprazole [Protonix] 40 mg PO AC-BRKFST #30 tablet.dr Continue buPROPion HCL [buPROPion HCL SR] 150 mg PO BID Aspirin 81 mg PO DAILY #0 Discontinued Furosemide [Lasix] 40 mg PO DAILY #90 tab Metoprolol Succinate (ER) [Toprol XL] 25 mg PO DAILY tab.er.24h lisinopriL [Zestril] 10 mg PO BID #180 tab Mupirocin [Mupirocin 2%] 1 applic TOPICAL BID #1 tube Discharge Medication List buPROPion HCL [buPROPion HCL SR] 150 mg PO BID 12/26/20 [History] Acetaminophen Tab [Tylenol] 650 mg PO Q4HR PRN tab 03/10/21 [Rx] Aspirin 81 mg PO DAILY #0 03/10/21 [Rx] Atorvastatin [Lipitor] 40 mg PO DAILY #30 tab 03/10/21 [Rx] Losartan [Cozaar] 25 mg PO DAILY@1200 #30 tab 03/10/21 [Rx] Metoprolol Tartrate [Lopressor] 50 mg PO BID #60 tab 03/10/21 [Rx] Pantoprazole [Protonix] 40 mg PO AC-BRKFST #30 tablet. 03/10/21 [Rx] Sennosides-Docusate Sodium [Senokot-S] 2 each PO HS PRN tab 03/10/21 [Rx] Warfarin [Coumadin] 2.5 mg PO DAILY #120 tab 03/10/21 [Rx] Follow up Appointment(s)/Referral(s): [facility] ,Cardiac [NON-STAFF] - 4 Weeks (You will be called 4-6 weeks after surgery for evaluation for cardiac rehab) Sagar Shannon DO [Primary Care Provider] - 03/22/21 10:00 am Teena Herman MD [STAFF PHYSICIAN] - 03/29/21 10:15 am Ambrose Hua DO [STAFF PHYSICIAN] - 03/20/21 9:00 am Hollie,Antonia, NPC [Nurse Practitioner] - 04/04/21 2:30 pm [facility], [NON-STAFF] - 1-2 Days Ambulatory/Diagnostic Orders: Complete Blood Count w/diff [LAB.AMB] Time Frame: 3 Days, Location: None Selected Comprehensive Metabolic Panel [LAB.AMB] Time Frame: 3 Days, Location: None Selected Prothrombin Time INR [LAB.AMB] Facility: [facility], Location: Laboratory [facility] Prothrombin Time INR [LAB.AMB] Time Frame: 03/12/21, Location: None Selected Activity/Diet/Wound Care/Special Instructions: DISCHARGE INSTRUCTIONS: 1. No driving for 4 weeks, or until physician gives their ok. 2. The patient should sleep in their own bed, no medical bed needed. 3. Stairs are not an issue. If the bedroom is upstairs, it is advised that the patient go up at night and down in the morning for the first week. Go slowly, using handrail and take 1 step at a time. 4. JUANI hose are to be worn for 30 days or until physician discontinues. 5. Heart hugger is to be worn 100% of the time until physician discontinues.(except when showering) 6. No lifting, pushing, or pulling more than 10 pounds for 12 weeks. The physician will advise of any restriction changes. 7. The patient is expected to continue the prescribed walking program. 8. Continue pain control per as needed orders. 9. Continue with incentive spirometry and splinting/heart hugger until otherwise directed by the physician. 10. Must shower daily using liquid antibacterial soap and a separate white washcloth for each individual incision. 11. Routine sternal incision care. No powders, lotions, ointments on incisions. No dressings are necessary on incisions unless they are draining. Dermabond tape is to remain on sternal incision until surgeon follow-up. 12. Please call surgeon/NETWORK DIAGNOSTIC SUPPORT SPECIALIST for temp greater than 101 F or purulent drainage from incisions. 13. All prescriptions given by surgeon for 30 days. Refills need to be filled through beef farmer/primary care physician. 14. A Red armband has been placed on the patient. It should be worn for 30 days post surgery and will be removed by the cardiac surgeons. If an ER visit is necessary, please make sure the number on the Red armband is called. 15. You have been referred to and are expected to begin Cardiac Rehab in approximately 4-6 weeks. HOME HEALTH SERVICES TO PROVIDE: RN SKILLED HOME CARE SERVICES FOR POST-OP SURGICAL PATIENTS WITH THE FOLLOWING: Coronary Artery Bypass Surgery (CABG), Mitral Valve Replacement/Repair ( MVR), Aortic Valve Replacement/Repair (AVR) RN TO CONTINUE EDUCATION FROM ``ROAD TO A HEALTH HEART PATIENT EDUCATION MANUAL (GIVEN TO PATIENT IN THE HOSPITAL) MEDICATION RECONCILIATION WITH EDUCATION NEEDED ON FIRST HOME VISIT EMPHASIZE IMPORTANCE OF WEARING BREAST SUPPORT/HEART HUGGER ENCOURAGE USE OF INCENTIVE SPIROMETER 10 X EVERY HOUR WHILE AWAKE ENCOURAGE UTILIZATION OF LOWER EXTREMITY COMPRESSION STOCKINGS/JUANI HOSE and ELEVATE LEGS ABOVE LEVEL OF HEART WHILE AT REST. ENCOURAGE AMBULATION 3-5x/day INCREASING TOLERATES, WHILE AVOIDING EXTREMES IN TEMPERATURE FREQUENCY: RN TO OPEN THE PATIENT WITHIN 24 HOURS OF DISCHARGE FROM THE HOSPITAL WITH TELEHEALTH INSTALLED AT [facility] [place], RN TO VISIT 2-3 X A WEEK FOR 4 WEEKS ESTABLISHED BY PATIENT NEEDS. LABORATORY: CBC, CMP TO BE DRAWN ON THE THIRD DAY HOME, (RAN STAT) FAX RESULTS TO [phone]. For patients on Coumadin, PT/INR to be drawn on Mondays and (as well as Thursday03/12/21), ran as STAT, and results called to [facility] NETWORK DIAGNOSTIC SUPPORT SPECIALIST Kiarra until follow up with beef farmer, then results faxed to [facility] at [phone] thereafter for Coumadin dosing. TELEHEALTH PARAMETERS: WEIGHT: NOTIFY MD OF WEIGHT GAIN OF 2 LBS IN 24 HOURS OR 5 LBS IN ONE WEEK HR: NOTIFY MD OF HR <55 BPM OR HR>100 BPM BP: NOTIFY MD IF BP <90/55 OR BP>140/100 O2 SAT: NOTIFY MD IF PO2<93% ON ROOM AIR SEND TELEHEALTH REPORT TO SCRAP BALER AND CARDIOVASCULAR SURGEON THE FIRST WEEK OF CARE AND THEN BI-WEEKLY. PLEASE ADDITIONALLY COMMUNICATE ANY ABNORMALS AND NEW FINDINGS TO THE SURGEONS OFFICE. For any questions or concerns please call lean manufacturing engineer Kiarra @ or Greg @ Discharge Disposition: HOME WITH HOME HEALTH SERVICES
--- NOTE | 2021-03-10 11:00 | P.PN ---
Subjective Progress Note Date: 03/10/21 This is a 59-year-old male, who is postop day #1, status post Bentall procedure. 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 The patient had aortic valve replacement using a 25 mm On- X mechanical valve, selected non-coronary sinus replacement along with ascending aortic replacement using a 32 mm Gel weave straight graft, exclusion of the left atrial appendage and intraoperative transesophageal echocardiogram. Currently, the patient's doing well. He is on 4 L nasal cannula. He was extubated within 5 hours post exiting the operating room. The patient is on lactated Ringer's at 50 mL an hour, and Primacor at 0.2 mcg/kg/m. The patient is getting insulin at 3.5 units an hour. Currently, the patient appears to be doing relatively well. White count 18.1, hemoglobin 11.7, hematocrit 32.6, and platelet count normal. Sodium 138, potassium 4.7, chlorides 108, CO2 28, anion gap 2, BUN 9, creatinine 0.81. Chest x-ray shows cardiomegaly and some mild bibasilar atelectasis. The patient is seen today 03/06/2021 in follow-up in the intensive care unit. Postoperative day #2. He is currently sitting up in a chair at the bedside. Awake and alert in no acute distress. Maintaining good O2 saturation in the 90s on 2 L/m per nasal cannula. He has lactated Ringer's at 20 ML's per hour. Insulin drip at 2.5 units per hour. Chest x-ray revealing a developing cardiomegaly with left lower lobe infiltrate/effusion. Mediastinal chest tube remain present. Cordis remains present in the right. [place] removed. No pneumothorax is evident. White count 17.3. Hemoglobin 10.8. Sodium 134. Potassium 4.2. Creatinine 0.74. He is continued on bronchodilators, heparin for DVT prophylaxis. He is working well with the incentive spirometer. Pulling approximately 1000 ML's. The patient is seen today 03/07/2021 in follow-up in the intensive care unit. This is postoperative day #3. He is currently sitting up in a chair at the bedside. Awake and alert in no acute distress. Chest x-ray still revealing left lower lobe atelectasis. Mediastinal chest tube remains in place. He is on 2 L/m per nasal cannula to maintain O2 saturation in the 90s. Working well with the incentive spirometer. Pulling approximately 1250 ML's. Right IJ Cordis in place. Right radial artery in place. Epicardial wires discontinued. White count 12.8. Hemoglobin 9.5. Platelets 147. INR 1.3. Sodium 1:30. Potassium 4.2. Creatinine 0.74. Warfarin being initiated today. The patient is seen today 03/08/2021 in follow-up on the selective care unit. He is currently sitting up in a chair at the bedside. Awake and alert in no acute distress. Maintaining O2 saturations in the upper 90s on 2 L/m per nasal cannula. Chest x-ray reveals basilar atelectasis. He's been afebrile. Hemodynamically stable. He is pulling approximately 1500 ML's on the incentive spirometer. His been up ambulating with assistance. Remains in sinus rhythm. Anticoagulated with warfarin. INR 2.9. White count 11.6. Hemoglobin 10.6. Creatinine 0.74. Potassium 4.3. Sodium 138. The patient is seen today 03/09/2021 in follow-up on the selective care unit. Currently awake and alert in no acute distress. Sitting up in a chair at the bedside. Main complaint is of fatigue today. He is maintaining good O2 saturations in the 90s on room air. Working well with the incentive spirometry. Pulling approximately 2000 ML's. Ambulating with assistance. Chest x-ray shows minimal atelectasis at the bases. White count 10.1. Hemoglobin 10.1. INR 2.1. Sodium 139. Potassium 4.0. Creatinine 0.81. The patient is seen today 03/10/2021 in follow-up on the selective care unit. Currently sitting up in a chair at the bedside. Awake and alert in no acute distress. Continue O2 saturations in the 90s on room air. He's been afebrile. Hemodynamically stable. White count 10.5. Hemoglobin 9.6. INR 1.9. Sodium 140. Potassium 4.4. Creatinine 0.86. Chest x-ray with stable findings with left lower lobe opacity/atelectasis. Objective - Vital Signs Vital signs: Vital Signs Temp 98.1 F 03/09/21 20:00 Pulse 87 03/10/21 08:38 Resp 20 03/10/21 08:38 BP 137/77 03/10/21 08:38 Pulse Ox 96 03/10/21 08:38 Intake & Output 03/09/21 03/10/21 03/10/21 18:59 06:59 18:59 Intake Total 840 960 Output Total 1125 300 Balance -285 660 Weight 119 kg Intake: Oral 840 960 Output: Urine 1125 300 Other: Voiding Method Urinal # Voids 1 ABP, PAP, CO, CI - Last Documented Arterial Blood Pressure 127/77 Pulmonary Artery Pressure 25/14 Cardiac Output 8.3 Cardiac Index 3.4 - Exam GENERAL EXAM: Alert, active, pleasant 51-year-old gentleman, on room air, fairly comfortable in no apparent distress. HEAD: Normocephalic. EYES: Normal reaction of pupils, equal size. NOSE: Clear with pink turbinates. THROAT: No erythema or exudates. NECK: No masses, no JVD. CHEST: Sternal dressing dry and intact. Heart Hugger in place LUNGS: Equal air entry with crackles in the left base. CVS: S1 and S2 normal with no audible murmur, regular rhythm. ABDOMEN: No hepatosplenomegaly, normal bowel sounds, no guarding or rigidity. SPINE: No scoliosis or deformity SKIN: No rashes CENTRAL NERVOUS SYSTEM: No focal deficits, tone is normal in all 4 extremities. EXTREMITIES: Right radial arterial line present. There is no peripheral edema. No clubbing, no cyanosis. Peripheral pulses are intact. - Labs CBC & Chem 7: 03/10/21 07:08 03/10/21 07:08 Labs: Abnormal Lab Results - Last 24 Hours (Table) 03/09/21 03/09/21 03/10/21 Range/Units 17:09 20:26 06:22 RBC (4.30-5.90) m/uL Hgb (13.0-17.5) gm/dL Hct (39.0-53.0) % PT (9.0-12.0) sec INR (<1.2) Glucose (74-99) mg/dL POC Glucose (mg/dL) 109 H 110 H 119 H (75-99) mg/dL 03/10/21 03/10/21 03/10/21 Range/Units 07:08 07:08 07:08 RBC 3.22 L (4.30-5.90) m/uL Hgb 9.6 L (13.0-17.5) gm/dL Hct 27.6 L (39.0-53.0) % PT 19.1 H (9.0-12.0) sec INR 1.9 H (<1.2) Glucose 108 H (74-99) mg/dL POC Glucose (mg/dL) (75-99) mg/dL Assessment and Plan Assessment: 1 Unicuspid aortic valve with severe aortic valve regurgitation, status post aortic valve replacement with and On-X mechanical valve. Postoperative day #6. 2 Mild mitral valve regurgitation 3 Hypertension 4 History of acute on chronic systolic congestive heart failure 6 History of nephrolithiasis 7 Obesity 8 Suspected obstructive sleep apnea, chronic hypersomnia 9 History of chronic tobacco dependence, FEV1 value 77% of predicted Plan: The patient was seen and evaluated by Dr. Echevarria Chest x-ray and labs reviewed Stable from the pulmonary standpoint, on room air Home once cleared by CT services Follow up in the office in 1-2 weeks' I, the cosigning physician, performed a history & physical examination of the patient. Lungs sounds crackles in the left base. Maintaining good O2 saturations in the 90s on room air. I discussed the assessment and plan of care with my nurse practitioner, Antonia Browne. I attest to the above note as dictated by her.
[2021-03-10] MEDS: LOSARTAN 25 MG TAB PO SCH (11:10)
--- NOTE | 2021-03-10 12:45 | P.PN ---
Subjective 59-year-old male was admitted for severe aortic stenosis any and unicuspid aortic valve. Patient had a valve replacement patient is on the Coumadin patient has EF of around 3035% presently will begin this time patient is clinically doing well and is being discharged today. Constitutional: Denied any fatigue denied any fever. Cardio vascular: denied any chest pain, palpitations Gastrointestinal denied any nausea vomiting Pulmonary: Denied any shortness of breath cough Neurologic denied any new focal deficits All inpatient medications were reviewed and appropriate changes in these medications as dictated in the interval history and assessment and plan. PHYSICAL EXAMINATION: GENERAL: The patient is alert and oriented x3, not in any acute distress. Well developed, well nourished. HEENT: Pupils are round and equally reacting to light. EOMI. No scleral icterus. No conjunctival pallor. Normocephalic, atraumatic. No pharyngeal erythema. No thyromegaly. CARDIOVASCULAR: S1 and S2 present. No murmurs, rubs, or gallops. PULMONARY: Chest is clear to auscultation, no wheezing or crackles. ABDOMEN: Soft, nontender, nondistended, normoactive bowel sounds. No palpable organomegaly. MUSCULOSKELETAL: No joint swelling or deformity. EXTREMITIES: No cyanosis, clubbing, or pedal edema. NEUROLOGICAL: Gross neurological examination did not reveal any focal deficits. SKIN: No rashes. Assessment and plan -Severe aortic regurgitation unicuspid aortic valve status for postoperative valve replacement patient is on Coumadin INR is 1.9 today -Hypertension -Congestive heart failure chronic systolic dysfunction patient is presently not in acute exacerbation -Obesity -Obstructive sleep apnea Is being discharged today discharge medications were reviewed follow-up with PCP Dr. Rosas as an outpatient Objective - Vital Signs Vital signs: Vital Signs Temp 98.1 F 03/09/21 20:00 Pulse 87 03/10/21 08:38 Resp 20 03/10/21 08:38 BP 137/77 03/10/21 08:38 Pulse Ox 96 03/10/21 08:38 Intake & Output 03/09/21 03/10/21 03/10/21 18:59 06:59 18:59 Intake Total 840 960 Output Total 1125 300 Balance -285 660 Weight 119 kg Intake: Oral 840 960 Output: Urine 1125 300 Other: Voiding Method Urinal # Voids 1 ABP, PAP, CO, CI - Last Documented Arterial Blood Pressure 127/77 Pulmonary Artery Pressure 25/14 Cardiac Output 8.3 Cardiac Index 3.4 - Labs CBC & Chem 7: 03/10/21 07:08 03/10/21 07:08 Labs: Abnormal Lab Results - Last 24 Hours (Table) 03/09/21 03/09/21 03/10/21 Range/Units 17:09 20:26 06:22 RBC (4.30-5.90) m/uL Hgb (13.0-17.5) gm/dL Hct (39.0-53.0) % PT (9.0-12.0) sec INR (<1.2) Glucose (74-99) mg/dL POC Glucose (mg/dL) 109 H 110 H 119 H (75-99) mg/dL 03/10/21 03/10/21 03/10/21 Range/Units 07:08 07:08 07:08 RBC 3.22 L (4.30-5.90) m/uL Hgb 9.6 L (13.0-17.5) gm/dL Hct 27.6 L (39.0-53.0) % PT 19.1 H (9.0-12.0) sec INR 1.9 H (<1.2) Glucose 108 H (74-99) mg/dL POC Glucose (mg/dL) (75-99) mg/dL
[2021-03-10] MEDS ORDERED: WARFARIN 7.5 MG TAB PO ONE (18:00)
== END 2021-03-10 11:49 | disposition home health service (06) | DRG 219 ==
LOC: 2ORMAIN 05:43 → 2SICU 15:29 → 3SCARD 03-07 16:16
PROVIDERS: ADMIT Surgery; ATTEND Surgery
PROC: 02L70CK Occlusion of Left Atrial Appendage with Extraluminal Device, Open Approach (ICD-10-PCS; 2021-03-04)
PROC: 5A1221Z Performance of Cardiac Output, Continuous (ICD-10-PCS; 2021-03-04)
PROC: 02RF0JZ Replacement of Aortic Valve with Synthetic Substitute, Open Approach (ICD-10-PCS; principal; 2021-03-04 08:00)
PROC: 02RX0JZ Replacement of Thoracic Aorta, Ascending/Arch with Synthetic Substitute, Open Approach (ICD-10-PCS; 2021-03-04 08:00)
PROC: B24BZZ4 Ultrasonography of Heart with Aorta, Transesophageal (ICD-10-PCS; 2021-03-04 08:00)
DX: I08.0 Rheumatic disorders of both mitral and aortic valves (principal); I50.23 Acute on chronic systolic (congestive) heart failure; D62 Acute posthemorrhagic anemia; J98.11 Atelectasis; I11.0 Hypertensive heart disease with heart failure; I77.810 Thoracic aortic ectasia; E66.9 Obesity, unspecified; Z68.32 Body mass index [BMI] 32.0-32.9, adult; Z87.442 Personal history of urinary calculi; G47.10 Hypersomnia, unspecified; B95.61 Methicillin susceptible Staphylococcus aureus infection as the cause of diseases classified elsewhere; G47.33 Obstructive sleep apnea (adult) (pediatric); Z87.891 Personal history of nicotine dependence; J40 Bronchitis, not specified as acute or chronic
CPT/HCPCS: 36600; 71045; 71046; 80048; 80053; 82330; 82805; 83735; 85025; 85027; 85520; 85610; 85730; 86850; 86891; 86900; 86901; 86920; 88305; 94002; 94640; 94760

== ENCOUNTER 2021-04-13 12:31 | Observation (INO) | payer BC ==
[2021-04-13] MEDS ORDERED: HYDROmorphone 0.5 MG/0.5 ML SYRINGE IVP STA (12:46)
--- NOTE | 2021-04-13 12:50 | ED ---
General Adult HPI - General Chief complaint: Chest Pain Stated complaint: CODY Time Seen by Provider: 04/13/21 12:37 Source: patient, RN notes reviewed, old records reviewed Mode of arrival: wheelchair Limitations: no limitations - History of Present Illness Initial comments: 51-year-old male presenting with left-sided upper chest and back pain which beg an at approximately 3 AM this morning. Patient is status post aortic valve replacement with aortic graft which was performed on March 04. He had contacted the nurse practitioner covering for cardiothoracic surgery who did recommend the patient presented to the emergency department. Patient states that he had a prior heart catheterization and he reports that he did not have coronary artery disease. Pain was severe and woke the patient from sleep. Patient is on Coumadin. - Related Data Home Medications Medication Instructions Recorded Confirmed Losartan [Cozaar] 25 mg PO DAILY 04/13/21 04/13/21 Metoprolol Succinate (ER) [Toprol 25 mg PO DAILY 04/13/21 04/13/21 Xl] Warfarin [Coumadin] 5 mg PO SUTUWEFRSA@209904/13/21 04/13/21 Warfarin [Coumadin] 7.5 mg PO MOTH@2100 04/13/21 04/13/21 Previous Rx's Medication Instructions Recorded Aspirin 81 mg PO DAILY #0 03/10/21 Atorvastatin [Lipitor] 40 mg PO DAILY #30 tab 03/10/21 Pantoprazole [Protonix] 40 mg PO AC-BRKFST #30 tablet. 03/10/21 Furosemide [Lasix] 40 mg PO DAILY #7 tablet 03/25/21 Allergies Allergy/AdvReac Type Severity Reaction Status Date / Time Iodinated Contrast Media AdvReac Severe Vomiting Verified 04/13/21 13:31 Review of Systems ROS Statement: Those systems with pertinent positive or pertinent negative responses have been documented in the HPI. ROS Other: All systems not noted in ROS Statement are negative. Past Medical History Past Medical History: Hypertension Additional Past Medical History / Comment(s): kidney stones; possible CHRIS- patient was seen by pulmonology in 03/2019 but didn't follow up with testing for CHRIS,was having SOB w/ exertion,is better. Recently passed Kidney stone on 02-13-21. History of Any Multi-Drug Resistant Organisms: None Reported Past Surgical History: Appendectomy, Coronary Bypass/CABG, Heart Catheterization Additional Past Surgical History / Comment(s): kidney stones procedure,YOVANY Past Anesthesia/Blood Transfusion Reactions: Postoperative Nausea & Vomiting (PONV) Past Psychological History: Depression Smoking Status: Former smoker Past Alcohol Use History: None Reported Past Drug Use History: None Reported - Past Family History Mother Family Medical History: Cancer Additional Family Medical History / Comment(s): still alive at 78 y/o Father Family Medical History: CVA/TIA Additional Family Medical History / Comment(s): at 86 y/o General Exam Limitations: no limitations General appearance: alert Head exam: Present: atraumatic, normocephalic Eye exam: Present: normal appearance, PERRL ENT exam: Present: normal exam Neck exam: Present: normal inspection. Absent: tenderness Respiratory exam: Present: decreased breath sounds. Absent: respiratory distress Cardiovascular Exam: Present: normal rhythm, tachycardia, systolic murmur GI/Abdominal exam: Present: soft. Absent: distended, tenderness Extremities exam: Present: normal inspection, normal capillary refill. Absent: pedal edema, calf tenderness Neurological exam: Present: alert, oriented X3. Absent: CN II-XII intact, motor sensory deficit Psychiatric exam: Present: anxious Skin exam: Present: diaphoretic Course Vital Signs 04/13/21 12:33 Temperature 97.8 F Pulse Rate 109 H Respiratory 20 Rate Blood Pressure 145/90 O2 Sat by Pulse 98 Oximetry - Reevaluation(s) Reevaluation #1: 04/13/21 1250 Case discussed with Kiarra tavares for cardiothoracic surgery regarding the patient's presentation. EKG Findings - EKG Comments: EKG Findings:: EKG: Sinus tachycardia, LVH no ST segment elevation identified. There is a baseline artifact limiting interpretation. Rate of 112, TN interval 196, QRS duration 100, QTC 458. Medical Decision Making - Medical Decision Making 51-year-old male presenting for evaluation of chest pain. A Little over 1 month status post open heart surgery. Patient is mildly hypertensive. He had chest pain and left upper back pain. This woke him from sleep. Chest x-ray is clear. I did perform a CT angiography to evaluate the aorta. This not reveal any aortic dissection or rupture or aneurysmal change. Patient has a normal CBC, normal CMP, his INR is elevated at 5. I did discuss case with both the admitting physician Dr. Almeida and with Kiarra covering for cardiothoracic surgery. - Lab Data Result diagrams: 04/13/21 12:56 04/13/21 12:56 Lab Results 04/13/21 04/13/21 04/13/21 Range/Units 12:56 12:56 12:56 WBC 9.9 (3.8-10.6) k/uL RBC 5.01 (4.30-5.90) m/uL Hgb 14.2 D (13.0-17.5) gm/dL Hct 41.3 (39.0-53.0) % MCV 82.5 (80.0-100.0) fL MCH 28.3 (25.0-35.0) pg MCHC 34.3 (31.0-37.0) g/dL RDW 14.4 (11.5-15.5) % Plt Count 272 (150-450) k/uL MPV 7.7 Neutrophils % 76 % Lymphocytes % 14 % Monocytes % 7 % Eosinophils % 2 % Basophils % 1 % Neutrophils # 7.6 (1.3-7.7) k/uL Lymphocytes # 1.4 (1.0-4.8) k/uL Monocytes # 0.6 (0-1.0) k/uL Eosinophils # 0.1 (0-0.7) k/uL Basophils # 0.1 (0-0.2) k/uL Poikilocytosis Slight PT 49.7 H (9.0-12.0) sec INR 5.2 H* (<1.2) APTT 41.4 H (22.0-30.0) sec Sodium 142 (137-145) mmol/L Potassium 3.7 (3.5-5.1) mmol/L Chloride 105 (98-107) mmol/L Carbon Dioxide 24 (22-30) mmol/L Anion Gap 13 mmol/L BUN 14 (9-20) mg/dL Creatinine 0.75 (0.66-1.25) mg/dL Est GFR (CKD-EPI)AfAm >90 (>60 ml/min/1.73 sqM) Est GFR (CKD-EPI)NonAf >90 (>60 ml/min/1.73 sqM) Glucose 130 H (74-99) mg/dL Calcium 9.7 (8.4-10.2) mg/dL Magnesium 1.9 (1.6-2.3) mg/dL Total Bilirubin 1.7 H (0.2-1.3) mg/dL AST 26 (17-59) U/L ALT 19 (4-49) U/L Alkaline Phosphatase 96 (38-126) U/L Troponin I (0.000-0.034) ng/mL Total Protein 7.5 (6.3-8.2) g/dL Albumin 4.6 (3.5-5.0) g/dL 04/13/21 Range/Units 12:56 WBC (3.8-10.6) k/uL RBC (4.30-5.90) m/uL Hgb (13.0-17.5) gm/dL Hct (39.0-53.0) % MCV (80.0-100.0) fL MCH (25.0-35.0) pg MCHC (31.0-37.0) g/dL RDW (11.5-15.5) % Plt Count (150-450) k/uL MPV Neutrophils % % Lymphocytes % % Monocytes % % Eosinophils % % Basophils % % Neutrophils # (1.3-7.7) k/uL Lymphocytes # (1.0-4.8) k/uL Monocytes # (0-1.0) k/uL Eosinophils # (0-0.7) k/uL Basophils # (0-0.2) k/uL Poikilocytosis PT (9.0-12.0) sec INR (<1.2) APTT (22.0-30.0) sec Sodium (137-145) mmol/L Potassium (3.5-5.1) mmol/L Chloride (98-107) mmol/L Carbon Dioxide (22-30) mmol/L Anion Gap mmol/L BUN (9-20) mg/dL Creatinine (0.66-1.25) mg/dL Est GFR (CKD-EPI)AfAm (>60 ml/min/1.73 sqM) Est GFR (CKD-EPI)NonAf (>60 ml/min/1.73 sqM) Glucose (74-99) mg/dL Calcium (8.4-10.2) mg/dL Magnesium (1.6-2.3) mg/dL Total Bilirubin (0.2-1.3) mg/dL AST (17-59) U/L ALT (4-49) U/L Alkaline Phosphatase (38-126) U/L Troponin I <0.012 (0.000-0.034) ng/mL Total Protein (6.3-8.2) g/dL Albumin (3.5-5.0) g/dL Disposition Clinical Impression: Chest pain Disposition: ADMITTED IP TO THIS [facility] Condition: Stable Is patient prescribed a controlled substance at d/c from ED?: No Referrals: Sagar Shannon DO [Primary Care Provider] - 1-2 days Decision to Admit Reason: Admit from EC Decision Date: 04/13/21 Decision Time: 14:44
[2021-04-13] MEDS ORDERED: methylPREDNISolone SOD SUCCI 125 MG/2 ML VIAL IV STA (13:00)
[2021-04-13] MEDS ORDERED: diphenhydrAMINE 50 MG/ML 1 ML VIAL IVP STA (13:00)
[2021-04-13] MEDS ORDERED: FAMOTIDINE 20 MG/2 ML VIAL IV STA (13:00)
[2021-04-13 13:14] LABS: ALT 19 U/L (4-49); AST 26 U/L (17-59); African American GFR (CKD) >90 (>60 ml/min/1.73 sqM); Albumin 4.6 g/dL (3.5-5.0); Alkaline Phosphatase 96 U/L (38-126); Anion Gap 13 mmol/L; Basophils # (A) 0.1 k/uL (0-0.2); Basophils % (A) 1 %; Blood Urea Nitrogen 14 mg/dL (9-20); Calcium 9.7 mg/dL (8.4-10.2); Carbon Dioxide 24 mmol/L (22-30); Chloride 105 mmol/L (98-107); Eosinophils # (A) 0.1 k/uL (0-0.7); Eosinophils % (A) 2 %; Glucose 130 mg/dL (74-99); HCT 41.3 % (39.0-53.0); Lymphocytes # (A) 1.4 k/uL (1.0-4.8); Lymphocytes % (A) 14 %; MCH 28.3 pg (25.0-35.0); MCHC 34.3 g/dL (31.0-37.0); MCV 82.5 fL (80.0-100.0); Magnesium 1.9 mg/dL (1.6-2.3); Mean Platelet Volume 7.7; Monocytes # (A) 0.6 k/uL (0-1.0); Monocytes % (A) 7 %; Neutrophils # (A) 7.6 k/uL (1.3-7.7); Neutrophils % (A) 76 %; Non-African American GFR(CKD) >90 (>60 ml/min/1.73 sqM); Platelet Count 272 k/uL (150-450); Poikilocytosis Slight; Potassium 3.7 mmol/L (3.5-5.1); RBC 5.01 m/uL (4.30-5.90); RDW 14.4 % (11.5-15.5); Sodium 142 mmol/L (137-145); Total Bilirubin 1.7 mg/dL (0.2-1.3); Total Protein 7.5 g/dL (6.3-8.2); WBC 9.9 k/uL (3.8-10.6)
[2021-04-13 13:18] LABS: Partial Thromboplastin Time 41.4 sec (22.0-30.0); Prothrombin Time 49.7 sec (9.0-12.0)
[2021-04-13 13:22] LABS: HGB 14.2 gm/dL (13.0-17.5)
--- NOTE | 2021-04-13 13:31 | XR ---
EXAMINATION TYPE: XR chest 1V portable DATE OF EXAM: 04/13/2021 COMPARISON: 03/10/2021 INDICATION: Chest pain TECHNIQUE: Single frontal view of the chest is obtained. FINDINGS: The heart size is mildly prominent. The pulmonary vasculature is normal. The lungs are clear. IMPRESSION: 1. No acute pulmonary process.
[2021-04-13 13:35] LABS: INR 5.2 (<1.2)
--- NOTE | 2021-04-13 14:31 | CT ---
EXAMINATION TYPE: CT angio thor/abd pel aorta DATE OF EXAM: 04/13/2021 COMPARISON: CT chest 12/31/2020 HISTORY: Chest pain and back pain, with recent aortic root repair CT DLP: 1740.6 mGycm Automated exposure control for dose reduction was used. CONTRAST: Performed without and with IV Contrast, patient injected with 100 mL of Isovue 370. Images obtained from the thoracic inlet to the diaphragm without contrast. Images obtained from the t horacic inlet to the floor the pelvis with IV contrast and 3-D post processed images. There is no mediastinal adenopathy. There are a few paratracheal lymph nodes measuring less than 1 cm . There are no hilar masses. There are surgical clips at the aortic valve. There is 3.5 cm ascending aorta. There are no hilar masses. I see no filling defect in the pulmonary arteries. There is no evid ence of thoracic aortic aneurysm or dissection. There is small left pleural effusion. There is mild infiltrate left lower lobe. Liver spleen stomach pancreas gallbladder appear normal. The bile ducts are nondilated. There is no a drenal mass. Kidneys show satisfactory contrast opacification. There is no hydronephrosis. There is n o retroperitoneal adenopathy. Bladder distends smoothly. There is no inguinal hernia. There is no ezio e fluid in the pelvis. There is no inguinal hernia. There is no mesenteric edema. There is no ascites or free air. There is no bowel obstruction. There a re clips from appendectomy. Abdominal aorta appears normal in size and contour. There is arterial flow in the iliac and femoral a rteries bilaterally. There is arterial flow in the celiac artery and superior mesenteric artery. Ther e is arterial flow in both renal arteries. There is no evidence of arterial aneurysm or dissection. T here is no evidence of hemodynamic stenosis. Abdominal aorta measures up to 2.3 cm. There is 1.5 cm rounded hypodensity in the anterior right lobe of the liver that is probably a cyst. The thoracic and lumbar vertebra appear intact. There is no compression fracture. There are sternal w ires. IMPRESSION: Aortic and mitral valve surgery. No evidence of aortic aneurysm or dissection. No evidence of pulmona ry embolism. No hemodynamic stenosis. There is some new mild infiltrate and atelectasis and pleural fluid in the left lower lobe compared t o old exam.
[2021-04-13] MEDS ORDERED: ACETAMINOPHEN TAB 325 MG TAB PO PRN (14:38)
[2021-04-13] MEDS ORDERED: HYDROmorphone 0.5 MG/0.5 ML SYRINGE IVP PRN (14:38)
[2021-04-13] MEDS ORDERED: NALOXONE 0.4 MG/ML 1 ML VIAL IV PRN (14:38)
[2021-04-13] MEDS ORDERED: LACTULOSE 20 GM/30 ML CUP PO PRN (22:27)
[2021-04-13] MEDS ORDERED: MAGNESIUM HYDROXIDE 2,400 MG/10 ML CUP PO PRN (22:27)
[2021-04-13] MEDS ORDERED: MAG HYDROX/AL HYDROX/SIMETH 30 ML CUP PO PRN (22:27)
[2021-04-13] MEDS ORDERED: ALPRAZolam 0.25 MG TAB PO PRN (23:00)
[2021-04-13] MEDS ORDERED: ONDANSETRON 4 MG/2 ML VIAL IVP PRN (23:00)
[2021-04-13] MEDS ORDERED: MELATONIN 3 MG TABLET PO PRN (23:00)
[2021-04-14] MEDS ORDERED: CALCIUM CARBONATE 500 MG CHEWABLE PO PRN
[2021-04-14 04:43] LABS: Basophils % (A) 0 %; Eosinophils % (A) 0 %; HCT 41.1 % (39.0-53.0); HGB 13.8 gm/dL (13.0-17.5); Lymphocytes # (A) 0.9 k/uL (1.0-4.8); Lymphocytes % (A) 6 %; MCH 28.4 pg (25.0-35.0); MCHC 33.6 g/dL (31.0-37.0); MCV 84.5 fL (80.0-100.0); Mean Platelet Volume 6.9; Monocytes # (A) 0.5 k/uL (0-1.0); Monocytes % (A) 3 %; Neutrophils # (A) 14.4 k/uL (1.3-7.7); Neutrophils % (A) 91 %; Platelet Count 344 k/uL (150-450); Poikilocytosis Slight; RBC 4.86 m/uL (4.30-5.90); RDW 14.9 % (11.5-15.5); WBC 15.9 k/uL (3.8-10.6)
[2021-04-14 04:47] LABS: INR 4.1 (<1.2)
[2021-04-14 04:53] LABS: ALT 19 U/L (4-49); AST 24 U/L (17-59); African American GFR (CKD) >90 (>60 ml/min/1.73 sqM); Albumin 4.6 g/dL (3.5-5.0); Albumin/Globulin Ratio 1.5; Alkaline Phosphatase 82 U/L (38-126); Anion Gap 14 mmol/L; Blood Urea Nitrogen 17 mg/dL (9-20); Calcium 10.3 mg/dL (8.4-10.2); Carbon Dioxide 21 mmol/L (22-30); Chloride 105 mmol/L (98-107); Globulin 3.1 g/dL; Glucose 152 mg/dL (74-99); Non-African American GFR(CKD) >90 (>60 ml/min/1.73 sqM); Potassium 4.3 mmol/L (3.5-5.1); Sodium 140 mmol/L (137-145); Total Bilirubin 1.5 mg/dL (0.2-1.3); Total Protein 7.7 g/dL (6.3-8.2)
[2021-04-14] MEDS: ATORVASTATIN 40 MG TAB PO SCH (07:06)
[2021-04-14] MEDS: METOPROLOL SUCCINATE (ER) 25 MG TAB.ER.24H PO SCH (07:06)
[2021-04-14] MEDS: ASPIRIN 81 MG PO SCH (07:06)
[2021-04-14] MEDS: FUROSEMIDE 40 MG TAB PO SCH (07:07)
[2021-04-14] MEDS: LOSARTAN 25 MG TAB PO SCH (07:07)
[2021-04-14] MEDS: PANTOPRAZOLE 40 MG TABLET PO SCH (07:07)
--- NOTE | 2021-04-14 09:44 | P.GSCN ---
History of Present Illness Consult date: 04/14/21 Reason for Consult: Chest pain, known to our service Requesting physician: Antonio Loza History of present illness: This is a 51-year-old active gentleman who follows on an outpatient basis with Dr. Fabián Shannon for primary care and Dr. Saez for cardiology. He has a previous medical history of unicuspid aortic valve with severe aortic valve regurgitation, status post aortic valve replacement using a 25 mm On-X mechanical valve on 03/04/21, moderate left anterior dysfunction, moderate aortic root and ascending aortic dilation with bovine arch, status post selective non- coronary sinus replacement along with ascending aortic replacement using a 32 mm gel weave straight graft, mild mitral valve regurgitation, hypertension, chronic systolic heart failure, kidney stones, bronchitis, obesity, chronic hypersomnia and possible sleep apnea syndrome, and previous tobacco dependence. He presented to [facility] emergency room with complaints of severe pain in his back with radiation to the front and his left arm which woke him from sleep at 3 am. EKG demonstrated sinus tach with Twave abnormality. Troponin was negative. Chest x-ray demonstrated no acute process. Thoracic aorta CT demonstr ated no aortic aneurysm or dissection, no abnormalities other than atelectasis and minimal left pleural effusion. INR was supratherapeutic at 5.2. After receiving dilaudid IV patient reports resolution of his pain. He was admitted for observation with consultation placed to cardiology and cardiothoracic surgery. Of note, his heart catheterization from 12/2020 demonstrated normal coronary arteries, and recent stress test completed at Dr. Saez's office was reportedly normal per the patient. Review of Systems ROS was negative except as noted - Cardiovascular Reports as per HPI, Reports chest pain Past Medical History Past Medical History: Heart Failure, Hypertension Additional Past Medical History / Comment(s): kidney stones; possible CHRIS- patient was seen by pulmonology in 03/2019 but didn't follow up with testing. Recently passed Kidney stone on 02-13-21. Severe aortic insufficiency. Chronic hypersomnia History of Any Multi-Drug Resistant Organisms: None Reported Past Surgical History: Appendectomy, Heart Catheterization Additional Past Surgical History / Comment(s): kidney stones procedure,YOVANY, aortic valve replacement w/ mechanical valve/selective non-coronary sinus replacement w/ ascending aortic replacement on 03/04/21. Past Anesthesia/Blood Transfusion Reactions: Postoperative Nausea & Vomiting (PONV) Past Psychological History: Depression Smoking Status: Former smoker Past Alcohol Use History: None Reported Additional Past Alcohol Use History / Comment(s): quit smoking several times,finally quit Aug 2020.1/2 ppweek since teens Past Drug Use History: None Reported - Past Family History Mother Family Medical History: Cancer Additional Family Medical History / Comment(s): still alive at 78 y/o Father Family Medical History: CVA/TIA Additional Family Medical History / Comment(s): at 86 y/o Medications and Allergies Home Medications Medication Instructions Recorded Confirmed Type Aspirin 81 mg PO DAILY #0 03/10/21 04/13/21 Rx Atorvastatin [Lipitor] 40 mg PO DAILY #30 tab 03/10/21 04/13/21 Rx Pantoprazole [Protonix] 40 mg PO AC-BRKFST #30 tablet. 03/10/21 04/13/21 Rx Furosemide [Lasix] 40 mg PO DAILY #7 tablet 03/25/21 04/13/21 Rx Losartan [Cozaar] 25 mg PO DAILY 04/13/21 04/13/21 History Metoprolol Succinate (ER) [Toprol 25 mg PO DAILY 04/13/21 04/13/21 History Xl] Warfarin [Coumadin] 5 mg PO SUTUWEFRSA@2100 04/13/21 04/13/21 History Warfarin [Coumadin] 7.5 mg PO MOTH@2100 04/13/21 04/13/21 History Allergies Allergy/AdvReac Type Severity Reaction Status Date / Time Iodinated Contrast Media AdvReac Severe Vomiting Verified 04/13/21 13:31 Surgical - Exam Vital Signs Temp Pulse Resp BP Pulse Ox 97.8 F 109 H 20 145/90 98 04/13/21 12:33 04/13/21 12:33 04/13/21 12:33 04/13/21 12:33 04/13/21 12:33 CONSTITUTIONAL: Awake and alert, appears comfortable, cooperative, well- developed, well-nourished, no pain, no acute distress EYES: Pupils equal, round, reactive to light, normal ocular movement ENT: Moist mucous membranes without oral lesions present NECK: No masses, no bruits, trachea midline RESPIRATORY: Lungs sounds clear to auscultation bilaterally. Respirations even, nonlabored. Currently on room air with oxygen saturation 98%. Strong cough. No clubbing or cyanosis present CARDIOVASCULAR: S1, S2 present. Regular rate and rhythm, sinus rhythm on telemetry. Sternum stable. Palpable peripheral pulses bilaterally. No edema present. No calf pain or tenderness noted. GASTROINTESTINAL: Abdomen soft, nontender, nondistended without masses or organomegaly noted. There is no rebound or guarding present. Active bowel sounds present 4 quadrants. GENITOURINARY: Deferred INTEGUMENTARY: Skin is warm and dry with evidence of good perfusion. Anterior chest incision well approximated without redness or drainage NEUROLOGIC: Cranial nerves II through XII intact, normal coordination, no obvious motor or sensory deficits, speech is normal MUSKULOSKELETAL: Able to move all extremities, strength equal bilaterally, normal posture PSYCHIATRIC: Alert and oriented to person place and time, appropriate affect, intact judgment and insight Results - Labs 04/14/21 03:53 04/14/21 03:53 Abnormal Lab Results - Last 24 Hours (Table) 04/13/21 04/13/21 04/14/21 Range/Units 12:56 12:56 03:53 WBC 15.9 H (3.8-10.6) k/uL Neutrophils # 14.4 H (1.3-7.7) k/uL Lymphocytes # 0.9 L (1.0-4.8) k/uL PT 49.7 H (9.0-12.0) sec INR 5.2 H* (<1.2) APTT 41.4 H (22.0-30.0) sec Carbon Dioxide (22-30) mmol/L Glucose 130 H (74-99) mg/dL Calcium (8.4-10.2) mg/dL Total Bilirubin 1.7 H (0.2-1.3) mg/dL 04/14/21 04/14/21 Range/Units 03:53 03:53 WBC (3.8-10.6) k/uL Neutrophils # (1.3-7.7) k/uL Lymphocytes # (1.0-4.8) k/uL PT 39.0 H (9.0-12.0) sec INR 4.1 H (<1.2) APTT (22.0-30.0) sec Carbon Dioxide 21 L (22-30) mmol/L Glucose 152 H (74-99) mg/dL Calcium 10.3 H (8.4-10.2) mg/dL Total Bilirubin 1.5 H (0.2-1.3) mg/dL Diabetes panel 04/13/21 04/14/21 Range/Units 12:56 03:53 Sodium 142 140 (137-145) mmol/L Potassium 3.7 4.3 (3.5-5.1) mmol/L Chloride 105 105 (98-107) mmol/L Carbon Dioxide 24 21 L (22-30) mmol/L BUN 14 17 (9-20) mg/dL Creatinine 0.75 0.74 (0.66-1.25) mg/dL Glucose 130 H 152 H (74-99) mg/dL Calcium 9.7 10.3 H (8.4-10.2) mg/dL AST 26 24 (17-59) U/L ALT 19 19 (4-49) U/L Alkaline Phosphatase 96 82 (38-126) U/L Total Protein 7.5 7.7 (6.3-8.2) g/dL Albumin 4.6 4.6 (3.5-5.0) g/dL Calcium panel 04/13/21 04/14/21 Range/Units 12:56 03:53 Calcium 9.7 10.3 H (8.4-10.2) mg/dL Albumin 4.6 4.6 (3.5-5.0) g/dL Pituitary panel 04/13/21 04/14/21 Range/Units 12:56 03:53 Sodium 142 140 (137-145) mmol/L Potassium 3.7 4.3 (3.5-5.1) mmol/L Chloride 105 105 (98-107) mmol/L Carbon Dioxide 24 21 L (22-30) mmol/L BUN 14 17 (9-20) mg/dL Creatinine 0.75 0.74 (0.66-1.25) mg/dL Glucose 130 H 152 H (74-99) mg/dL Calcium 9.7 10.3 H (8.4-10.2) mg/dL Adrenal panel 04/13/21 04/14/21 Range/Units 12:56 03:53 Sodium 142 140 (137-145) mmol/L Potassium 3.7 4.3 (3.5-5.1) mmol/L Chloride 105 105 (98-107) mmol/L Carbon Dioxide 24 21 L (22-30) mmol/L BUN 14 17 (9-20) mg/dL Creatinine 0.75 0.74 (0.66-1.25) mg/dL Glucose 130 H 152 H (74-99) mg/dL Calcium 9.7 10.3 H (8.4-10.2) mg/dL Total Bilirubin 1.7 H 1.5 H (0.2-1.3) mg/dL AST 26 24 (17-59) U/L ALT 19 19 (4-49) U/L Alkaline Phosphatase 96 82 (38-126) U/L Total Protein 7.5 7.7 (6.3-8.2) g/dL Albumin 4.6 4.6 (3.5-5.0) g/dL - Imaging Chest x-ray: report reviewed, image reviewed CT scan - chest: report reviewed, image reviewed EKG: image reviewed Assessment and Plan Assessment: 1. Severe chest/back pain, resolved with IV dilaudid 2. History of unicuspid aortic valve with severe aortic valve regurgitation, status post aortic valve replacement using a 25 mm On-X mechanical valve 03/04/21 3. Moderate aortic root and ascending aortic dilation with bovine arch, status post selective non-coronary sinus replacement along with ascending aortic replacement using a 32 mm gel weave straight graft 03/04/21 4. Mild mitral valve regurgitation 5. History of hypertension 6. History of chronic systolic heart failure 7. History of kidney stones 8. History of bronchitis 9. Obesity 10. History of chronic hypersomnia and possible sleep apnea syndrome 11. Previous tobacco dependence Plan: The patient was seen and examined at the bedside on the observation unit. Chart/diagnostics were reviewed. The case will be discussed in detail with Dr. Davila. The patient reports resolution of symptoms since given IV dilaudid, chest CT demonstrated no aortic dissection or rupture. Heart cath completed in December demonstrated normal coronaries, troponin was negative, and recent stress test was reportedly normal. We recommend continuing low dose aspirin, statin, Cozaar, and beta ben. Encourage continued incentive spirometry use. Increase activity, ambulate as tolerated, continue sternal precautions. Shower daily. Continue coumadin with goal INR 2-3 for first 3 months, then 1.5-2 thereafter. The patient may be discharged to home from our standpoint when ok with cardiology and primary care. He will see Dr. Herman in the office at the end of May. Thank you for this consult. Please call us with any questions. Time with Patient: Greater than 30
--- NOTE | 2021-04-14 11:49 | XR ---
EXAMINATION TYPE: XR chest 2V DATE OF EXAM: 04/14/2021 COMPARISON: 04/13/2021 INDICATION: Chest pain short of breath TECHNIQUE: Frontal and lateral views of the chest are obtained. FINDINGS: The heart size is normal. The pulmonary vasculature is normal. Platelike atelectasis at the left base. Lungs are otherwise clear. Sternotomy wires from prior cardia c valve surgery are evident. IMPRESSION: 1. Mild plate atelectasis left lung base
--- NOTE | 2021-04-14 12:30 | P.CRDCN ---
History of Present Illness Consult date: 04/14/21 History of present illness: HISTORY OF PRESENT ILLNESS: This is a 51-year-old male with a past medical history significant for hypertension, unicuspid aortic valve, severe aortic regurgitation, mechanical valve replacement on 03/04/2021, nonischemic cardiomyopathy with ejection fraction 30-35%, former nicotine dependence, and ascending aortic aneurysm. Patient follows in the office with Dr. Saez. We have been asked to see the patient in consultation for chest pain. Patient examined at the bedside. Patient states yesterday he developed chest pain on the left side of his chest. He states the pain went into his left shoulder and into his back. He also reports the pain went down his arm. He states he took a few Motrin which did not help with the pain. He reports the pain is worse with palpation and also with deep inspiration. Patient states he still had chest pain overnight but received IV Dilaudid and his pain went away. EKG reveals sinus mechanism with T-wave inversions in lateral leads Chest xray negative for acute process Laboratory data: WBC 15.9. Hemoglobin 13.8. Platelet count 344. INR 5.2. Repeat 4.1. Sodium 140. Potassium 4.3. BUN 17. Creatinine 0.74. Troponin negative 2. Current home cardiac medications include Coumadin 5 mg Thursday and 7.5 mg Thursday, metoprolol succinate 25 mg daily, losartan 25 mg daily, Lasix 40 mg daily, Lipitor 41 g daily, and aspirin 81 mg daily Most recent echocardiogram obtained in December 2020 revealed moderate global hypokinesis of LV, severe aortic regurgitation, mild mitral rotation, mild tricuspid regurgitation, moderate pulmonary hypertension, and ejection fraction 30-35% Cardiac catheterization history: December [address] Rodriguez revealing normal coronary arteries REVIEW OF SYSTEMS: At the time of my exam: CONSTITUTIONAL: Denies fever or chills. HEENT: Denies blurred vision, vision changes, or eye pain. Denies hemoptysis CARDIOVASCULAR: Denies chest pain. Denies orthopnea. Denies PND. Denies palpitations RESPIRATORY: Denies shortness of breath. GASTROINTESTINAL: Denies abdominal pain. Denies nausea or vomiting. HEMATOLOGIC: Denies bleeding disorders. GENITOURINARY: Denies any blood in urine. SKIN: Denies pruitis. Denies rash. PHYSICAL EXAM: VITAL SIGNS: Reviewed. GENERAL: Well-developed in no acute distress. HEENT: Head is normocephalic. Pupils are equal, round. Sclerae anicteric. Mucous membranes of the mouth are moist. Neck supple. No JVD or thyromegaly LUNGS: Respirations even and unlabored. Lungs essentially clear to auscultation bilaterally. HEART: Regular rate and rhythm. S1 and S2 heard. ABDOMEN: Soft. Nondistended. Nontender. EXTREMITIES: Normal range of motion. No clubbing or cyanosis. Peripheral pulses intact. No lower extremity edema NEUROLOGIC: Awake and alert. Oriented x 3. ASSESSMENT: Chest pain, troponin negative x 3 Supratherapeutic INR History of unicuspid aortic valve with severe aortic valve regurgitation, status post aortic valve replacement with mechanical valve Moderate aortic root and ascending aortic dilation with bovine arch, status post selective non-coronary sinus replacement along the ascending aortic replacement using Gelweave graft Hypertension Hyperlipidemia Nonischemic cardiomyopathy ejection fraction 30-35% Former nicotine dependence PLAN: An acute coronary event has been ruled out Patient had normal cath in December 2020 Resume home cardiac medications Monitor INR. Resume Coumadin when INR improved Patient may be discharged home today from a cardiac standpoint Nurse practitioner note has been reviewed by physician. Signing provider agrees with the documented findings, assessment, and plan of care. Past Medical History Past Medical History: Hypertension Additional Past Medical History / Comment(s): kidney stones; possible CHRIS- patient was seen by pulmonology in 03/2019 but didn't follow up with testing for CHRIS,was having SOB w/ exertion,is better. Recently passed Kidney stone on 02-13-21. History of Any Multi-Drug Resistant Organisms: None Reported Past Surgical History: Appendectomy, Coronary Bypass/CABG, Heart Catheterization Additional Past Surgical History / Comment(s): kidney stones procedure,YOVANY, aortic valve/ "arotic root" valve replaced on 03/04/21. Past Anesthesia/Blood Transfusion Reactions: Postoperative Nausea & Vomiting (PONV) Past Psychological History: Depression Smoking Status: Former smoker Past Alcohol Use History: None Reported Additional Past Alcohol Use History / Comment(s): quit smoking several times,finally quit Aug 2020.1/2 ppweek since teens Past Drug Use History: None Reported - Past Family History Mother Family Medical History: Cancer Additional Family Medical History / Comment(s): still alive at 78 y/o Father Family Medical History: CVA/TIA Additional Family Medical History / Comment(s): at 86 y/o Medications and Allergies Home Medications Medication Instructions Recorded Confirmed Type Aspirin 81 mg PO DAILY #0 03/10/21 04/13/21 Rx Atorvastatin [Lipitor] 40 mg PO DAILY #30 tab 03/10/21 04/13/21 Rx Pantoprazole [Protonix] 40 mg PO AC-BRKFST #30 tablet. 03/10/21 04/13/21 Rx Furosemide [Lasix] 40 mg PO DAILY #7 tablet 03/25/21 04/13/21 Rx Losartan [Cozaar] 25 mg PO DAILY 04/13/21 04/13/21 History Metoprolol Succinate (ER) [Toprol 25 mg PO DAILY 04/13/21 04/13/21 History Xl] Warfarin [Coumadin] 5 mg PO SUTUWEFRSA@209904/13/21 04/13/21 History Warfarin [Coumadin] 7.5 mg PO MOTH@209904/13/21 04/13/21 History Allergies Allergy/AdvReac Type Severity Reaction Status Date / Time Iodinated Contrast Media AdvReac Severe Vomiting Verified 04/13/21 13:31 Physical Exam Vitals: Vital Signs Temp Pulse Pulse Resp BP BP Pulse Ox 04/14/21 07:46 85 18 04/14/21 07:00 98.5 F 85 18 134/75 96 04/14/21 02:00 97.8 F 93 17 116/76 98 04/14/21 01:26 17 04/13/21 20:00 98.5 F 97 17 126/83 98 04/13/21 16:32 20 04/13/21 15:04 96 20 131/81 99 04/13/21 12:33 97.8 F 109 H 20 145/90 98 Intake and Output 04/13/21 04/14/21 04/14/21 22:59 06:59 14:59 Other: Voiding Method Toilet Toilet Toilet # Voids 1 2 Weight 107.501 kg Results 04/14/21 03:53 04/14/21 03:53 Cardiac Enzymes 04/13/21 04/13/21 04/14/21 Range/Units 12:56 12:56 03:53 AST 26 24 (17-59) U/L Troponin I <0.012 (0.000-0.034) ng/mL Coagulation 04/13/21 04/14/21 Range/Units 12:56 03:53 PT 49.7 H 39.0 H (9.0-12.0) sec APTT 41.4 H (22.0-30.0) sec CBC 04/13/21 04/14/21 Range/Units 12:56 03:53 WBC 9.9 15.9 H (3.8-10.6) k/uL RBC 5.01 4.86 (4.30-5.90) m/uL Hgb 14.2 D 13.8 (13.0-17.5) gm/dL Hct 41.3 41.1 (39.0-53.0) % Plt Count 272 344 (150-450) k/uL Comprehensive Metabolic Panel 04/13/21 04/14/21 Range/Units 12:56 03:53 Sodium 142 140 (137-145) mmol/L Potassium 3.7 4.3 (3.5-5.1) mmol/L Chloride 105 105 (98-107) mmol/L Carbon Dioxide 24 21 L (22-30) mmol/L BUN 14 17 (9-20) mg/dL Creatinine 0.75 0.74 (0.66-1.25) mg/dL Glucose 130 H 152 H (74-99) mg/dL Calcium 9.7 10.3 H (8.4-10.2) mg/dL AST 26 24 (17-59) U/L ALT 19 19 (4-49) U/L Alkaline Phosphatase 96 82 (38-126) U/L Total Protein 7.5 7.7 (6.3-8.2) g/dL Albumin 4.6 4.6 (3.5-5.0) g/dL Current Medications Generic Name Dose Route Start Last Admin Trade Name Freq PRN Reason Stop Dose Admin Acetaminophen 650 mg 04/13/21 14:38 Acetaminophen Tab 325 Mg Tab PO Q6HR PRN Mild Pain or Fever > 100.5 Al Hydroxide/Mg Hydroxide 15 ml 04/13/21 22:27 Mag Hydrox/Al Hydrox/Simeth 30 Ml Cup PO Q6HR PRN Indigestion Alprazolam 0.25 mg 08/07/21 23:00 Alprazolam 0.25 Mg Tab PO Q6HR PRN Anxiety Aspirin 81 mg 04/14/21 09:00 04/14/21 07:06 Aspirin 81 Mg PO 81 mg DAILY SWATI Administration Atorvastatin Calcium 40 mg 04/14/21 09:00 04/14/21 07:06 Atorvastatin 40 Mg Tab PO 40 mg DAILY SWATI Administration Calcium Carbonate/Glycine 1,000 mg 04/14/21 00:00 Calcium Carbonate 500 Mg Chewable PO Q4HR PRN Dyspepsia Furosemide 40 mg 04/14/21 09:00 04/14/21 07:07 Furosemide 40 Mg Tab PO 40 mg DAILY SWATI Administration Hydromorphone HCl 0.5 mg 04/13/21 14:38 04/13/21 19:27 Hydromorphone 0.5 Mg/0.5 Ml Syringe IVP 0.5 mg Q3HR PRN Administration Moderate Pain Lactulose 20 gm 04/13/21 22:27 Lactulose 20 Gm/30 Ml Cup PO DAILY PRN Constipation Losartan Potassium 25 mg 04/14/21 09:00 04/14/21 07:07 Losartan 25 Mg Tab PO 25 mg DAILY SWATI Administration Magnesium Hydroxide 2,400 mg 04/13/21 22:27 Magnesium Hydroxide 2,400 Mg/10 Ml Cup PO DAILY PRN Constipation Melatonin 3 mg 04/13/21 23:00 Melatonin 3 Mg Tablet PO HS PRN Insomnia Metoprolol Succinate 25 mg 04/14/21 09:00 04/14/21 07:06 Metoprolol Succinate (Er) 25 Mg Tab.Er.24h PO 25 mg DAILY SWATI Administration Miscellaneous Information 0 each 04/14/21 06:33 Warfarin Per Pharmacy MISCELLANE DIRECTED PRN PHARMACY DOSING WARFARIN Naloxone HCl 0.2 mg 04/13/21 14:38 Naloxone 0.4 Mg/Ml 1 Ml Vial IV Q2M PRN Opioid Reversal Ondansetron HCl 4 mg 04/13/21 23:00 Ondansetron 4 Mg/2 Ml Vial IVP Q8HR PRN Nausea And Vomiting Pantoprazole Sodium 40 mg 04/14/21 07:30 04/14/21 07:07 Pantoprazole 40 Mg Tablet PO 40 mg AC-BRKFST SWATI Administration Warfarin Sodium 0 mg 04/14/21 18:00 Warfarin 0.5 Mg Tab PO 04/14/21 18:01 ONCE@1800 ONE Intake and Output 04/13/21 04/14/21 04/14/21 22:59 06:59 14:59 Other: Voiding Method Toilet Toilet Toilet # Voids 1 2 Weight 107.501 kg 04/14/21 03:53 04/14/21 03:53
--- NOTE | 2021-04-14 17:02 | P.HPIM ---
History of Present Illness H&P Date: 04/14/21 Chief Complaint: Left shoulder pain History of presenting complaint: This is a very pleasant 51-year-old patient follows with Dr. Shannon. Chronic stable medical conditions include hypertension, hyperlipidemia, cardiomyopathy EF of about 30-35%. Patient has a mechanical aortic valve for which she is on Coumadin. On 03/04/2021 patient underwent aortic valve replacement with a mechanical valve by Dr. Heaton. Previously YOVANY showed reduced EF. Cardiac catheterization that showed normal coronaries. Patient is doing well. Patient also supposed to have a follow for sleep study but hasn't been able to the same. Patient cc rather tired because he is all the time she scotches a fall on his aortic valve and he can hear the same. Making it difficult for him to sleep. Patient yesterday presented with a just medial to the shoulder blade going to the left arm. Present for the all day. Some perspiration. No dizziness or lightheadedness. Slightly short of breath. No fever no chills. No cough. Review of systems: GEN.: Tired EYES: None HEENT: None NECK: None RESPIRATORY: Mild shortness of breath CARDIOVASCULAR: None GASTROINTESTINAL: None GENITOURINARY: None MUSCULOSKELETAL: None LYMPHATICS: None HEMATOLOGICAL: None PSYCHIATRY: None NEUROLOGICAL: Poor sleep Past medical history to include: Mechanical aortic valve on February 2021 on Coumadin, hypertension, hyperlipidemia, normal cardiac catheterization, EF 30-35% Social history: No alcohol. Patient finally stopped smoking in August 2020. Breathing about half a pack per week. 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 . Family history: Cancer Physical examination: VITAL SIGNS: 97.8, 96, 20, 131/81, 98% room air] GENERAL: BMI 29.6, laying in bed, slightly anxious. EYES: Pupils equal. Conjunctiva normal. HEENT: External appearance of nose and ears normal, oral cavity grossly normal. NECK: JVD not raised; masses not palpable. HEART: Mechanical heart sound; no edema. LUNGS: Respiratory rate normal; clear to auscultation. ABDOMEN: Soft, nontender, liver spleen not palpable, no masses palpable. PSYCH: Alert and oriented x3; mood and affect slightly anxiousl. NEUROLOGICAL: Cranial nerves grossly intact; no facial asymmetry, power and sensation grossly intact. LYMPHATICS: No lymph nodes palpable in the axilla and neck INVESTIGATIONS, reviewed in the clinical context: WBC 15.9 hemoglobin 13.8 platelets 344 potassium 4.3 creatinine 0.74 Troponin I 3 negative INR 4.1 Chest x-ray film personally reviewed by me-lungs clear EKG tracing personally reviewed by me-rate of 112, nonspecific T-wave changes Assessment and plan: -Patient presented with pain around the left shoulder blade going on the left arm present most of the day. Nonspecific EKG findings. Troponins are negative. No infectious symptoms like cough. This could be muscular skeletal pain. -Mechanical aortic valve on 03/04/2021 Continue with Coumadin -Coumadin monitoring Pharmacy to dose -Chronic insomnia for medical condition [patient is very conscious about cardiac aortic valve clicking. Patient advised to use ear plugs on nausea reduction headphones with music -Hyperlipidemia Lipitor 40 mg daily -Essential hypertension Toprol-XL 25 mg a day, Cozaar 25 mg a day -Patient is followed patient workup of obstructive sleep apnea Consultation made to cardiothoracic surgery and pulmonary. Patient encouraged to be up and walk about. Home medications are continued. Care was discussed with the patient and questions answered. Patient be observed overnight. Past Medical History Past Medical History: Hypertension Additional Past Medical History / Comment(s): kidney stones; possible CHRIS- patient was seen by pulmonology in 03/2019 but didn't follow up with testing for CHRIS,was having SOB w/ exertion,is better. Recently passed Kidney stone on 02-13-21. History of Any Multi-Drug Resistant Organisms: None Reported Past Surgical History: Appendectomy, Coronary Bypass/CABG, Heart Catheterization Additional Past Surgical History / Comment(s): kidney stones procedure,YOVANY, aortic valve/ "arotic root" valve replaced on 03/04/21. Past Anesthesia/Blood Transfusion Reactions: Postoperative Nausea & Vomiting (PONV) Past Psychological History: Depression Smoking Status: Former smoker Past Alcohol Use History: None Reported Additional Past Alcohol Use History / Comment(s): quit smoking several times,finally quit Aug 2020.1/2 ppweek since teens Past Drug Use History: None Reported - Past Family History Mother Family Medical History: Cancer Additional Family Medical History / Comment(s): still alive at 78 y/o Father Family Medical History: CVA/TIA Additional Family Medical History / Comment(s): at 86 y/o Medications and Allergies Home Medications Medication Instructions Recorded Confirmed Type Aspirin 81 mg PO DAILY #0 03/10/21 04/13/21 Rx Atorvastatin [Lipitor] 40 mg PO DAILY #30 tab 03/10/21 04/13/21 Rx Pantoprazole [Protonix] 40 mg PO AC-BRKFST #30 tablet. 03/10/21 04/13/21 Rx Furosemide [Lasix] 40 mg PO DAILY #7 tablet 03/25/21 04/13/21 Rx Losartan [Cozaar] 25 mg PO DAILY 04/13/21 04/13/21 History Metoprolol Succinate (ER) [Toprol 25 mg PO DAILY 04/13/21 04/13/21 History Xl] Warfarin [Coumadin] 5 mg PO SUTUWEFRSA@209904/13/21 04/13/21 History Warfarin [Coumadin] 7.5 mg PO MOTH@2100 04/13/21 04/13/21 History Allergies Allergy/AdvReac Type Severity Reaction Status Date / Time Iodinated Contrast Media AdvReac Severe Vomiting Verified 04/13/21 13:31 Physical Exam Vitals: Vital Signs Temp Pulse Pulse Resp BP BP Pulse Ox 04/14/21 07:46 85 18 04/14/21 07:00 98.5 F 85 18 134/75 96 04/14/21 02:00 97.8 F 93 17 116/76 98 04/14/21 01:26 17 04/13/21 20:00 98.5 F 97 17 126/83 98 04/13/21 16:32 20 04/13/21 15:04 96 20 131/81 99 04/13/21 12:33 97.8 F 109 H 20 145/90 98 Intake and Output 04/13/21 04/14/21 04/14/21 22:59 06:59 14:59 Other: Voiding Method Toilet Toilet Toilet # Voids 1 2 Weight 107.501 kg Results CBC & Chem 7: 04/14/21 03:53 04/14/21 03:53 Labs: Abnormal Lab Results - Last 24 Hours (Table) 04/13/21 04/13/21 04/14/21 Range/Units 12:56 12:56 03:53 WBC 15.9 H (3.8-10.6) k/uL Neutrophils # 14.4 H (1.3-7.7) k/uL Lymphocytes # 0.9 L (1.0-4.8) k/uL PT 49.7 H (9.0-12.0) sec INR 5.2 H* (<1.2) APTT 41.4 H (22.0-30.0) sec Carbon Dioxide (22-30) mmol/L Glucose 130 H (74-99) mg/dL Calcium (8.4-10.2) mg/dL Total Bilirubin 1.7 H (0.2-1.3) mg/dL 04/14/21 04/14/21 Range/Units 03:53 03:53 WBC (3.8-10.6) k/uL Neutrophils # (1.3-7.7) k/uL Lymphocytes # (1.0-4.8) k/uL PT 39.0 H (9.0-12.0) sec INR 4.1 H (<1.2) APTT (22.0-30.0) sec Carbon Dioxide 21 L (22-30) mmol/L Glucose 152 H (74-99) mg/dL Calcium 10.3 H (8.4-10.2) mg/dL Total Bilirubin 1.5 H (0.2-1.3) mg/dL Thrombosis Risk Factor Assmnt - Choose All That Apply Any of the Below Risk Factors Present?: Yes Each Factor Represents 1 point: Age 41-60 years, Obesity (BMI >25) Other Risk Factors: Yes Each Risk Factor Represents 2 Points: Major surgery Other congenital or acquired thrombophilia - If yes, enter type in comment: No Thrombosis Risk Factor Assessment Total Risk Factor Score: 4 Thrombosis Risk Factor Assessment Level: Moderate Risk
[2021-04-14] MEDS ORDERED: WARFARIN 0.5 MG TAB PO ONE (18:00)
[2021-04-14] MEDS ORDERED: WARFARIN 5 MG TAB PO SCH (21:00)
[2021-04-15 04:43] LABS: INR 2.9 (<1.2); Prothrombin Time 27.9 sec (9.0-12.0)
[2021-04-15] MEDS: LOSARTAN 25 MG TAB PO SCH (07:42)
[2021-04-15] MEDS: PANTOPRAZOLE 40 MG TABLET PO SCH (07:43)
[2021-04-15] MEDS: FUROSEMIDE 40 MG TAB PO SCH (07:43)
[2021-04-15] MEDS: ATORVASTATIN 40 MG TAB PO SCH (07:43)
[2021-04-15] MEDS: METOPROLOL SUCCINATE (ER) 25 MG TAB.ER.24H PO SCH (07:44)
[2021-04-15] MEDS: ASPIRIN 81 MG PO SCH (07:44)
[2021-04-15 07:52] VITALS: BP 135/85; PULSE 70; RESP 16; TEMP 97.8
--- NOTE | 2021-04-15 09:57 | P.PN ---
Subjective This is a 51-year-old male with a past medical history significant for hypertension, unicuspid aortic valve, severe aortic regurgitation, mechanical valve replacement on 03/04/2021, nonischemic cardiomyopathy with ejection fraction 30-35%, former nicotine dependence, and ascending aortic aneurysm. Patient follows in the office with Dr. Saez. We have been asked to see the patient in consultation for chest pain. Patient states he had left sided back pain and neck/head pain went into his left shoulder. He also reports the shooting pain went down his arm. Most recent echocardiogram obtained in December 2020 revealed moderate global hypokinesis of LV, severe aortic regurgitation, mild mitral rotation, mild tricuspid regurgitation, moderate pulmonary hypertension, and ejection fraction 30-35%. Cardiac catheterization history: December [address] Rodriguez revealing normal coronary arteries. EKG with no acute findings suggesting ischemia. Troponin negative x 3. Patient seen and examined at bedside, no acute distress. He states that this left sided back, arm pain has resolved. He states he's feeling much better. Blood pressure 135/85, heart rate 70, afebrile, maintaining oxygen saturations on room air. Laboratory data reviewed INR is now 2.9. Patient denies any change in his diet recently. PHYSICAL EXAM: VITAL SIGNS: Reviewed. GENERAL: Well-developed in no acute distress. HEENT: Head is normocephalic. Neck supple. No JVD LUNGS: Respirations even and unlabored. Lungs essentially clear to auscultation bilaterally. HEART: Regular rate and rhythm. S1 and S2 heard. ABDOMEN: Soft. Nondistended. Nontender. EXTREMITIES: Normal range of motion. No clubbing or cyanosis. Peripheral pulses intact. No lower extremity edema NEUROLOGIC: Awake and alert. Oriented x 3. ASSESSMENT: Chest pain, troponin negative x 3 Supratherapeutic INR - improving today 2.9 History of unicuspid aortic valve with severe aortic valve regurgitation, status post aortic valve replacement with mechanical valve Moderate aortic root and ascending aortic dilation with bovine arch, status post selective non-coronary sinus replacement along the ascending aortic replacement using Gelweave graft Hypertension Hyperlipidemia Nonischemic cardiomyopathy ejection fraction 30-35% Former nicotine dependence PLAN: An acute coronary event has been ruled out Continue home cardiac medications Patient may be discharged home today from a cardiac standpoint Patient to follow up in the office with Dr. Saez, patient states he has an appointment in the office to get his INR checked this week. Nurse practitioner note has been reviewed by physician. Signing provider agrees with the documented findings, assessment, and plan of care. Objective - Vital Signs Vital signs: Vital Signs Temp 97.8 F 04/15/21 07:00 Pulse 70 04/15/21 08:00 Resp 16 04/15/21 08:00 BP 135/85 04/15/21 07:00 Pulse Ox 98 04/15/21 07:00 Intake & Output 04/14/21 04/15/21 04/15/21 18:59 06:59 18:59 Intake Total 200 Balance 200 Intake: Oral 200 Other: Voiding Method Toilet Toilet Toilet # Voids 4 1 - Labs CBC & Chem 7: 04/14/21 03:53 04/14/21 03:53 Labs: Abnormal Lab Results - Last 24 Hours (Table) 04/15/21 Range/Units 03:54 PT 27.9 H (9.0-12.0) sec INR 2.9 H (<1.2)
--- NOTE | 2021-04-15 10:50 | ECHOF ---
Referral Reason:Cardiomyopathy MEASUREMENTS -------- HEIGHT: 190.5 cm WEIGHT: 107.5 kg BP: 112/70 RVIDd: 3.1 cm (< 3.3) IVSd: 1.4 cm (0.6 - 1.1) LVIDd: 4.9 cm (3.9 - 5.3) LVPWd: 1.4 cm (0.6 - 1.1) IVSs: 1.8 cm LVIDs: 4.1 cm LVPWs: 2.0 cm LA Diam: 4.0 cm (2.7 - 3.8) LAESV Index (A-L): 22.04 ml/m Ao Diam: 3.9 cm (2.0 - 3.7) MV EXCURSION: 21.171 mm (> 18.000) MV EF SLOPE: 37 mm/s (70 - 150) EPSS: 1.5 cm MV E Misael: 0.95 m/s MV DecT: 168 ms MV A Misael: 0.68 m/s MV E/A Ratio: 1.41 AV maxP.36 mmHg AV meanP.24 mmHg AR PHT: 375 ms RAP: 5.00 mmHg RVSP: 25.15 mmHg FINDINGS -------- Sinus rhythm. This was a technically difficult study with suboptimal views. The left ventricular size is normal. There is moderate concentric left ventricular hypertrophy. O verall left ventricular systolic function is mildly impaired with, an EF between 45 - 50 %. Septal wall motion is delayed and consistent with prior cardiac surgery. The right ventricle is normal in size. Normal LA size by volume 22+/-6 ml/m2. The right atrium is normal in size. 5 ml of Lumason was utilized for enhancement of images. Trace to mild aortic regurgitation. Peak/mean gradient across the Aortic Valve is 22.36mmHg / 11.24 mmHg. Normally functioning mechanical prosthetic valve. Mild mitral annular calcification present. Mild mitral regurgitation is present. There is mild pulmonary hypertension. The right ventricular systolic pressure, as measured by Doppl er, is 25.15mmHg. There is no pulmonic regurgitation present. The aortic root is dilated measuring 3.9cm. Normal inferior vena cava with normal inspiratory collapse consistent with estimated right atrial pre ssure of 5 mmHg. There is no pericardial effusion. CONCLUSIONS -------- 1. The left ventricular size is normal. 2. There is moderate concentric left ventricular hypertrophy. 3. Overall left ventricular systolic function is mildly impaired with, an EF between 45 - 50 %. 4. Septal wall motion is delayed and consistent with prior cardiac surgery. 5. 5 ml of Lumason was utilized for enhancement of images. 6. Trace to mild aortic regurgitation. 7. Peak/mean gradient across the Aortic Valve is 22.36mmHg / 11.24mmHg. 8. Normally functioning mechanical prosthetic valve. 9. Mild mitral annular calcification present. 10. Mild mitral regurgitation is present. 11. There is mild pulmonary hypertension. 12. The aortic root is dilated measuring 3.9cm. 13. There is no pericardial effusion. INVENTORY SPECIALIST: Bia Schmitt RDCS
[2021-04-15] MEDS ORDERED: WARFARIN 5 MG TAB PO ONE (18:00)
--- NOTE | 2021-04-15 19:55 | P.DS ---
Providers Date of admission: 04/13/21 14:38 Expected date of discharge: 04/15/21 Attending physician: Teodoro Almeida Consults: 04/13/21 14:40 Consult Physician Routine Consulting Provider: Korina Sahu Consult Reason/Comments: CP Do you want consulting provider notified?: Yes Consult Physician Routine Consulting Provider: Teena Herman Consult Reason/Comments: Left-sided chest pain status post open heart Do you want consulting provider notified?: Already Contacted [facility]: Chief Complaint: Left shoulder pain History of presenting complaint: This is a very pleasant 51-year-old patient follows with Dr. Shannon. Chronic stable medical conditions include hypertension, hyperlipidemia, cardiomyopathy EF of about 30-35%. Patient has a mechanical aortic valve for which she is on Coumadin. On 03/04/2021 patient underwent aortic valve replacement with a mechanical valve by Dr. Heaton. Previously YOVANY showed reduced EF. Cardiac catheterization that showed normal coronaries. Patient is doing well. Patient also supposed to have a follow for sleep study but hasn't been able to the same. Patient cc rather tired because he is all the time she scotches a fall on his aortic valve and he can hear the same. Making it difficult for him to sleep. Patient yesterday presented with a just medial to the shoulder blade going to the left arm. Present for the all day. Some perspiration. No dizziness or lightheadedness. Slightly short of breath. No fever no chills. No cough. Patient was seen by cardiology and cardiothoracic surgery. Not any further intervention. Pain could be musculoskeletal. April 15: Patient doing much better. Discussed with the patient to get a sleep study done. Questions were answered. Patient to follow-up with Dr. Adames from outpatient sleep study. Discussion and discharge planning more than 35 minutes Consultation: Dr. Hua from cardiology Dr. Davila from cardiothoracic surgery Past medical history to include: Mechanical aortic valve on February 2021 on Coumadin, hypertension, hyperlipidemia, normal cardiac catheterization, EF 30-35% Social history: No alcohol. Patient finally stopped smoking in August 2020. Breathing about half a pack per week. 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 . Family history: Cancer Physical examination: VITAL SIGNS: 97.8, 70, 16, 135/85, 98% room air GENERAL: Declining in bed, comfortable EYES: Pupils equal. Conjunctiva normal. HEENT: External appearance of nose and ears normal, oral cavity grossly normal. NECK: JVD not raised; masses not palpable. HEART: Mechanical heart sound; no edema. LUNGS: Respiratory rate normal; clear to auscultation. ABDOMEN: Soft, nontender, liver spleen not palpable, no masses palpable. PSYCH: Alert and oriented x3; mood and affect slightly anxiousl. INVESTIGATIONS, reviewed in the clinical context: April 15: INR 2.9 WBC 15.9 hemoglobin 13.8 platelets 344 potassium 4.3 creatinine 0.74 Troponin I 3 negative INR 4.1 Chest x-ray film personally reviewed by me-lungs clear EKG tracing personally reviewed by me-rate of 112, nonspecific T-wave changes Assessment and plan: -Left chest wall pain, possibly musculoskeletal -Mechanical aortic valve on 03/04/2021 Continue with Coumadin -Coumadin monitoring Pharmacy to dose -Chronic insomnia for medical condition [patient is very conscious about cardiac aortic valve clicking. Patient advised to use ear plugs on nausea reduction headphones with music -Hyperlipidemia Lipitor 40 mg daily -Chronic nonischemic cardiomyopathy from aortic valve disorder, EF 30-35% -Essential hypertension Toprol-XL 25 mg a day, Cozaar 25 mg a day -Patient is followed patient workup of obstructive sleep apnea Disposition: Home Plan - Discharge Summary Discharge Rx Participant: No New Discharge Prescriptions: Continue Furosemide [Lasix] 40 mg PO DAILY #7 tablet Warfarin [Coumadin] 5 mg PO SUTUWEFRSA@2100 Metoprolol Succinate (ER) [Toprol XL] 25 mg PO DAILY Losartan [Cozaar] 25 mg PO DAILY Atorvastatin [Lipitor] 40 mg PO DAILY #30 tab Pantoprazole [Protonix] 40 mg PO AC-BRKFST #30 tablet. Aspirin 81 mg PO DAILY #0 Warfarin [Coumadin] 7.5 mg PO MOTH@2100 Discharge Medication List Aspirin 81 mg PO DAILY #0 03/10/21 [Rx] Atorvastatin [Lipitor] 40 mg PO DAILY #30 tab 03/10/21 [Rx] Pantoprazole [Protonix] 40 mg PO AC-BRKFST #30 tablet. 03/10/21 [Rx] Furosemide [Lasix] 40 mg PO DAILY #7 tablet 03/25/21 [Rx] Losartan [Cozaar] 25 mg PO DAILY 04/13/21 [History] Metoprolol Succinate (ER) [Toprol XL] 25 mg PO DAILY 04/13/21 [History] Warfarin [Coumadin] 5 mg PO SUTUWEFRSA@209904/13/21 [History] Warfarin [Coumadin] 7.5 mg PO MOTH@209904/13/21 [History] Follow up Appointment(s)/Referral(s): Sagar Shannon DO [Primary Care Provider] - 04/17/21 1:15 pm Jonny Saez MD [STAFF PHYSICIAN] - 04/25/21 9:45 am Teena Herman MD [STAFF PHYSICIAN] - 06/07/21 (Deonna from the office will call with the time) Dio Adames MD [STAFF PHYSICIAN] - 06/12/21 1:30 pm (sleep study) Patient Instructions/Handouts: Chest Pain (DC) Activity/Diet/Wound Care/Special Instructions: Continue sternal precautions (no lifting, pushing, pulling anything heavier than 10 pounds) for full 3 months post surgery Discharge Disposition: HOME SELF-CARE
[2021-04-15] MEDS ORDERED: WARFARIN 5 MG TAB PO SCH (21:00)
== END 2021-04-15 13:05 | disposition home or self-care (01) ==
LOC: EC 12:31 → 6NMEDSUR 14:38
PROVIDERS: ADMIT Hospitalist; ATTEND Hospitalist
DX: R07.89 Other chest pain (principal); I77.810 Thoracic aortic ectasia; Q23.1 Congenital insufficiency of aortic valve; Z95.3 Presence of xenogenic heart valve; I11.0 Hypertensive heart disease with heart failure; I50.22 Chronic systolic (congestive) heart failure; J98.11 Atelectasis; R79.1 Abnormal coagulation profile; R91.8 Other nonspecific abnormal finding of lung field; I27.20 Pulmonary hypertension, unspecified; E78.5 Hyperlipidemia, unspecified; I42.8 Other cardiomyopathies; G47.10 Hypersomnia, unspecified; F51.04 Psychophysiologic insomnia; F32.9 Major depressive disorder, single episode, unspecified; E66.9 Obesity, unspecified; Z68.29 Body mass index [BMI] 29.0-29.9, adult; M25.512 Pain in left shoulder; Z79.01 Long term (current) use of anticoagulants; Z79.82 Long term (current) use of aspirin; Z79.899 Other long term (current) drug therapy; Z87.09 Personal history of other diseases of the respiratory system; Z91.041 Radiographic dye allergy status; Z87.442 Personal history of urinary calculi; Z95.1 Presence of aortocoronary bypass graft; Z90.49 Acquired absence of other specified parts of digestive tract; Z98.890 Other specified postprocedural states; Z87.891 Personal history of nicotine dependence; Z82.3 Family history of stroke; Z80.9 Family history of malignant neoplasm, unspecified
CPT/HCPCS: 96376; 96374; 96375; 99285; 36415; 93005; 93306; 80053 ×2; 83735; 84484 ×2; 85025 ×2; 85610 ×3; 85730; 71045; 71046; 71275; 74174; G0378 ×3; J1200; J2930; J1170; Q9950; Q9967

== ENCOUNTER 2021-05-06 16:24 | Observation (INO) | payer BC ==
[2021-05-06 18:01] LABS: Basophils # (A) 0.1 k/uL (0-0.2); Basophils % (A) 0 %; Eosinophils % (A) 0 %; HCT 37.5 % (39.0-53.0); Lymphocytes # (A) 1.4 k/uL (1.0-4.8); Lymphocytes % (A) 11 %; MCH 28.4 pg (25.0-35.0); MCHC 34.6 g/dL (31.0-37.0); MCV 82.2 fL (80.0-100.0); Mean Platelet Volume 6.7; Monocytes # (A) 0.7 k/uL (0-1.0); Monocytes % (A) 5 %; Neutrophils % (A) 82 %; Platelet Count 308 k/uL (150-450); Poikilocytosis Slight; RBC 4.56 m/uL (4.30-5.90); RDW 15.1 % (11.5-15.5); WBC 12.2 k/uL (3.8-10.6)
[2021-05-06 18:12] LABS: Partial Thromboplastin Time 30.3 sec (22.0-30.0); Prothrombin Time 19.3 sec (9.0-12.0)
[2021-05-06 18:30] LABS: ALT 10 U/L (4-49); AST 19 U/L (17-59); African American GFR (CKD) >90 (>60 ml/min/1.73 sqM); Albumin 4.4 g/dL (3.5-5.0); Alkaline Phosphatase 86 U/L (38-126); Anion Gap 12 mmol/L; Blood Urea Nitrogen 15 mg/dL (9-20); Calcium 9.3 mg/dL (8.4-10.2); Carbon Dioxide 21 mmol/L (22-30); Chloride 106 mmol/L (98-107); Glucose 112 mg/dL (74-99); Non-African American GFR(CKD) >90 (>60 ml/min/1.73 sqM); Potassium 3.6 mmol/L (3.5-5.1); Sodium 139 mmol/L (137-145); Total Bilirubin 1.8 mg/dL (0.2-1.3); Total Protein 7.2 g/dL (6.3-8.2)
--- NOTE | 2021-05-06 18:38 | XR ---
EXAMINATION TYPE: XR chest 2V DATE OF EXAM: 05/06/2021 COMPARISON: 04/14/2021 HISTORY: Chest pain TECHNIQUE: 2 views FINDINGS: There is no heart failure nor confluent pneumonic infiltrate. There is small linear density at the left lung base. There is slight blunting right costophrenic angle. IMPRESSION: Pleural reaction and subsegmental atelectasis at the lung bases increased on the right si de and improved on the left side. No heart failure.
--- NOTE | 2021-05-06 18:46 | ED ---
Chest Pain HPI - General Chief Complaint: Chest Pain Stated Complaint: PostOp/Shoulder/Neck Pain Source: patient Mode of arrival: ambulatory Limitations: no limitations - History of Present Illness Initial Comments: 51-year-old male with past history of aortic valve replacement presents emergency room with reported chest pain. Patient had mechanical aortic valve replacement back in February. He is on coumadin and sees Dr. Herman/Dr. Rodriguez. States that yesterday he began having pain on the right side of his chest which radiates into his right jaw. The patient also then extends up to his head. It has become progressively worse. States that it makes him short of breath and he feels as if he cannot take a big breath in. He has had lack of appetite. For her symptoms. No fevers, chills or cough. He was seen in the emergency department several weeks ago with similar complaint. Had full cardiac workup and it was negative. They diagnosed as musculoskeletal strain. He states the pain has now moved from the left side of his chest to the right side of his chest. No ripping or tearing sensation to his back. Has been taking his medications as directed. No numbness, tingling or weakness into his extremities. No abdominal pain. No other alleviating, precipitating or modifying factors - Related Data Home Medications Medication Instructions Recorded Confirmed Losartan [Cozaar] 25 mg PO DAILY 04/13/21 05/06/21 Metoprolol Succinate (ER) [Toprol 25 mg PO DAILY 04/13/21 05/06/21 XL] Warfarin [Coumadin] 5 mg PO SUTUWEFRSA@209904/13/21 05/06/21 Warfarin [Coumadin] 7.5 mg PO MOTH@209904/13/21 05/06/21 Ibuprofen [Motrin] 600 mg PO TID PRN 05/06/21 05/06/21 buPROPion HCL [Wellbutrin SR] 150 mg PO BID 05/06/21 05/06/21 Previous Rx's Medication Instructions Recorded Aspirin 81 mg PO DAILY #0 03/10/21 Atorvastatin [Lipitor] 40 mg PO DAILY #30 tab 03/10/21 Pantoprazole [Protonix] 40 mg PO ANNE MARIE #30 tablet. 03/10/21 Furosemide [Lasix] 40 mg PO DAILY #7 tablet 03/25/21 Allergies Allergy/AdvReac Type Severity Reaction Status Date / Time Iodinated Contrast Media AdvReac Severe Vomiting Verified 05/06/21 22:18 Review of Systems ROS Statement: Those systems with pertinent positive or pertinent negative responses have been documented in the HPI. ROS Other: All systems not noted in ROS Statement are negative. EKG Findings - EKG Comments: EKG Findings:: EKG demonstrates a sinus rhythm with first-degree AV block. Rate of 92. MI interval 212. QRS 110. QTC of 455. Some ST depression in 1 and aVL, v4-v6. No acute ST segment elevations Past Medical History Past Medical History: Hypertension Additional Past Medical History / Comment(s): kidney stones; possible CHRIS- patient was seen by pulmonology in 03/2019 but didn't follow up with testing for CHRIS,was having SOB w/ exertion,is better. Recently passed Kidney stone on , History of Any Multi-Drug Resistant Organisms: None Reported Past Surgical History: Appendectomy, Coronary Bypass/CABG, Heart Catheterization Additional Past Surgical History / Comment(s): kidney stones procedure,YOVANY, aortic valve/ "arotic root" valve replaced on 03/04/21. Past Anesthesia/Blood Transfusion Reactions: Postoperative Nausea & Vomiting (PONV) Past Psychological History: Depression Smoking Status: Former smoker Past Alcohol Use History: None Reported Past Drug Use History: None Reported - Past Family History Mother Family Medical History: Cancer Additional Family Medical History / Comment(s): still alive at 78 y/o Father Family Medical History: CVA/TIA Additional Family Medical History / Comment(s): at 86 y/o General Exam Limitations: no limitations General appearance: alert, in no apparent distress Head exam: Present: atraumatic, normocephalic, normal inspection Eye exam: Present: normal appearance, PERRL, EOMI. Absent: scleral icterus, conjunctival injection, periorbital swelling ENT exam: Present: normal exam, mucous membranes moist Neck exam: Present: normal inspection. Absent: tenderness, meningismus, lymphadenopathy Respiratory exam: Present: normal lung sounds bilaterally. Absent: respiratory distress, wheezes, rales, rhonchi, stridor Cardiovascular Exam: Present: regular rate, normal rhythm, clicks (systolic). Absent: systolic murmur, diastolic murmur, rubs, gallop GI/Abdominal exam: Present: soft, normal bowel sounds. Absent: distended, tenderness, guarding, rebound, rigid Extremities exam: Present: normal inspection, full ROM, normal capillary refill. Absent: tenderness, pedal edema, joint swelling, calf tenderness Back exam: Present: normal inspection Neurological exam: Present: alert, oriented X3, CN II-XII intact Psychiatric exam: Present: normal affect, normal mood Skin exam: Present: warm, dry, intact, normal color. Absent: rash Course Vital Signs 05/06/21 05/06/21 05/06/21 17:35 18:48 19:00 Temperature 99.7 F H Pulse Rate 98 87 Pulse Rate [ 88 Bilateral Radial] Respiratory 18 18 Rate Blood Pressure 137/88 135/77 O2 Sat by Pulse 98 96 Oximetry 05/06/21 05/07/21 05/07/21 21:45 03:03 04:12 Temperature 97.2 F L Pulse Rate 85 75 72 Pulse Rate [ Bilateral Radial] Respiratory 20 16 20 Rate Blood Pressure 129/86 125/90 125/90 O2 Sat by Pulse 96 99 Oximetry 05/07/21 05/07/21 05/07/21 07:02 08:02 12:00 Temperature 97.5 F L 98.1 F 97.6 F Pulse Rate 79 86 76 Pulse Rate [ Bilateral Radial] Respiratory 20 18 18 Rate Blood Pressure 121/61 120/82 129/76 O2 Sat by Pulse 95 96 96 Oximetry Chest Pain MDM - MDM Upon arrival the patient was placed into room 21. There are history of physical exam is performed. IV is established. The patient was given 4 mg of morphine for pain control and 10 mg of Reglan. Laboratories his were conducted. Patient was pretreated for his contrast ALLERGY and sent over for a CT of his chest. Laboratory studies are reviewed. INR subtherapeutic at 2. D-dimer elevated at 0.61. Troponin negative. Chest x-ray demonstrated pleural reaction and subsegmental atelectasis at the lung bases which is increased on the right side and improved on the left side. CT of the patient's chest traits no PE. Mild interstitial infiltrate and atelectasis at the lung bases. The results are discussed the patient. 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 Patient does not feel comfortable for discharge and is concerned that the pain will return. I did call and speak with Wilberto who agreed to admit the patient. We will trend his troponins. Patient's Coumadin as ordered. He is currently awaiting a bed on the floor Disposition Clinical Impression: Chest pain Disposition: ADMITTED IP TO THIS HOSP Condition: Stable Is patient prescribed a controlled substance at d/c from ED?: No Decision to Admit Reason: Admit from EC Decision Date: 05/06/21 Decision Time: 22:13
[2021-05-06] MEDS ORDERED: diphenhydrAMINE 50 MG/ML 1 ML VIAL IVP STA (19:39)
[2021-05-06] MEDS ORDERED: methylPREDNISolone SOD SUCCI 125 MG/2 ML VIAL IV STA (19:39)
[2021-05-06] MEDS ORDERED: METOCLOPRAMIDE 5 MG/ML 2 ML VIAL IVP STA (19:39)
[2021-05-06] MEDS ORDERED: MORPHINE SULFATE 4 MG/ML SYRINGE IVP STA (19:39)
[2021-05-06] MEDS ORDERED: FAMOTIDINE 20 MG/2 ML VIAL IV STA (19:39)
--- NOTE | 2021-05-06 21:27 | CT ---
EXAMINATION TYPE: CT chest angio for PE DATE OF EXAM: 05/06/2021 COMPARISON: 12/31/2020 HISTORY: chest pain, recent open heart CT DLP: 828.1 mGycm Automated exposure control for dose reduction was used. CONTRAST: Performed with IV Contrast, patient injected with 100 mL of Isovue 370. There are 3-D post processed images. Heart is enlarged. There is no mediastinal adenopathy. There are no hilar masses. Thoracic aorta is i ntact. There is no aneurysm or dissection. There is no pericardial effusion. There is small right ple ural effusion. There is no evidence of filling defect in the pulmonary arteries. There is some interstitial infiltrate and atelectasis at the posterior lung bases. There are sternal wires. There is some mild spurring in the thoracic spine. There is no compression fracture. IMPRESSION: No evidence of pulmonary embolism. Mild interstitial infiltrate and atelectasis at the lung bases neisha t is new compared to old exam. Cardiomegaly unchanged.
--- NOTE | 2021-05-06 21:31 | CT ---
EXAMINATION TYPE: CT soft tissue neck w con DATE OF EXAM: 05/06/2021 COMPARISON: None HISTORY: neck pain CT DLP: 427.1 mGycm Automated exposure control for dose reduction was used. CONTRAST: Performed with IV Contrast, patient injected with 100 mL of Isovue 370. Images obtained from the mid orbits to the aortic arch with IV contrast. There is normal branching pattern of the great vessels on the aortic arch. Thyroid gland is symmetric . There is arterial flow in the great vessels. There is arterial flow in the carotid and vertebral ar teries. There is flow in the jugular veins. Epiglottis appears normal. Submandibular salivary glands are symmetric. I did glands are symmetric. Tonsils and adenoids are within normal limits. The tongue appears normal. I see no significant cervic al adenopathy. Mandibular ring is intact. Cervical vertebra have normal alignment. There is no compre ssion fracture. Visualized orbits appear intact. There is normal aeration of the visualized paranasal sinuses. There is no evidence of a pharyngeal mass. The visualized trachea appears normal. IMPRESSION: Negative CT scan of the cervical soft tissues. No suspicious neck mass.
[2021-05-06] MEDS ORDERED: NALOXONE 0.4 MG/ML 1 ML VIAL IV PRN (22:13)
[2021-05-06] MEDS ORDERED: MORPHINE SULFATE 4 MG/ML SYRINGE IV PRN (22:13)
[2021-05-06] MEDS ORDERED: WARFARIN 7.5 MG TAB PO SCH (23:00)
[2021-05-06] MEDS: ATORVASTATIN 40 MG TAB PO SCH (23:24)
[2021-05-06] MEDS: buPROPion SR 150 MG TABLET.ER PO SCH (23:26)
[2021-05-07] MEDS ORDERED: WARFARIN 7.5 MG TAB PO SCH (01:09)
[2021-05-07] MEDS ORDERED: PANTOPRAZOLE 40 MG TABLET PO SCH (07:30)
[2021-05-07] MEDS: buPROPion SR 150 MG TABLET.ER PO SCH (07:58)
[2021-05-07] MEDS: ATORVASTATIN 40 MG TAB PO SCH (07:58)
[2021-05-07 08:03] VITALS: RESP 18
[2021-05-07] MEDS ORDERED: LOSARTAN 25 MG TAB PO SCH (09:00)
[2021-05-07] MEDS ORDERED: METOPROLOL SUCCINATE (ER) 25 MG TAB.ER.24H PO SCH (09:00)
[2021-05-07] MEDS ORDERED: ASPIRIN 81 MG PO SCH (09:00)
[2021-05-07] MEDS ORDERED: FUROSEMIDE 40 MG TAB PO SCH (09:00)
[2021-05-07 09:12] LABS: Basophils % (A) 0 %; Eosinophils % (A) 0 %; Lymphocytes # (A) 0.8 k/uL (1.0-4.8); Lymphocytes % (A) 8 %; MCH 28.4 pg (25.0-35.0); MCHC 34.2 g/dL (31.0-37.0); MCV 83.2 fL (80.0-100.0); Mean Platelet Volume 6.7; Monocytes # (A) 0.3 k/uL (0-1.0); Monocytes % (A) 3 %; Neutrophils # (A) 8.6 k/uL (1.3-7.7); Neutrophils % (A) 88 %; Platelet Count 299 k/uL (150-450); Poikilocytosis Slight; RBC 4.57 m/uL (4.30-5.90); RDW 14.7 % (11.5-15.5); WBC 9.8 k/uL (3.8-10.6)
[2021-05-07 09:25] LABS: INR 1.9 (<1.2); Prothrombin Time 18.5 sec (9.0-12.0)
[2021-05-07 09:29] LABS: African American GFR (CKD) >90 (>60 ml/min/1.73 sqM); Anion Gap 11 mmol/L; Blood Urea Nitrogen 18 mg/dL (9-20); Calcium 9.8 mg/dL (8.4-10.2); Carbon Dioxide 23 mmol/L (22-30); Chloride 105 mmol/L (98-107); Glucose 146 mg/dL (74-99); Non-African American GFR(CKD) >90 (>60 ml/min/1.73 sqM); Potassium 3.9 mmol/L (3.5-5.1); Sodium 139 mmol/L (137-145)
--- NOTE | 2021-05-07 09:40 | P.GSCN ---
History of Present Illness Consult date: 05/07/21 Reason for Consult: Known to our service from aortic valve replacement 03/04/2021 Requesting physician: Susy Bui History of present illness: This is a 51-year-old active gentleman who follows on an outpatient basis with Dr. Fabián Shannon for primary care and Dr. Saez for cardiology. He has a previous medical history of unicuspid aortic valve with severe aortic valve regurgitation, status post aortic valve replacement using a 25 mm On-X mechanical valve on 03/04/21, moderate left anterior dysfunction, moderate aortic root and ascending aortic dilation with bovine arch, status post selective non-coronary sinus replacement along with ascending aortic replacement using a 32 mm gel weave straight graft, mild mitral valve regurgitation, hypertension, chronic systolic heart failure, kidney stones, bronchitis, obesity, chronic hypersomnia and possible sleep apnea syndrome, and previous tobacco dependence. He presented to [facility] emergency room approximately 3 weeks ago with complaints of severe pain in his back with radiation to the front and his left arm which woke him from sleep at 3 am. He had a complete workup including EKG, chest x-ray, thoracic aorta CT, and lab work. There was no acute process found at that time, his pain was felt to be musculoskeletal in nature, and he was discharged to home the next day. He was supposed to see Dr. Saez in the office today, however yesterday he began experiencing right-sided chest pain with radiation to his right neck which was worse with inspiration. He again reported to the emergency room, was given Reglan and morphine along with Solu-Medrol, Benadryl, and Pepcid as part of IV dye prep for CTA of the chest, and this combination of medications took his pain completely away. CTA demonstrated no evidence of acute pulmonary embolism, mild interstitial infiltrate and atelectasis of the lung bases, and trace right-sided pleural effusion. Troponins were negative 3. EKG demonstrated normal sinus rhythm. Lab work was unremarkable. This was discussed with the patient and he was offered discharge to home, however patient was concerned that the pain would return and he requested admission to the hospital. He was admitted under observation status, with consultation placed to cardiology and cardiothoracic surgery. Review of Systems Review of systems was completed and was negative except as noted - Cardiovascular Reports as per HPI, Reports chest pain Past Medical History Past Medical History: Heart Failure, Hypertension Additional Past Medical History / Comment(s): kidney stones; possible CHRIS-shanta ent was seen by pulmonology in 03/2019 but didn't follow up with testing for CHRIS,was having SOB w/ exertion,is better. Recently passed Kidney stone on 02-13-21, History of Any Multi-Drug Resistant Organisms: None Reported Past Surgical History: Appendectomy, Heart Catheterization Additional Past Surgical History / Comment(s): kidney stones procedure,YOVANY, aortic valve replacement with non-coronary sinus replacement and ascending aorta replacement on 03/04/21. Past Anesthesia/Blood Transfusion Reactions: Postoperative Nausea & Vomiting (PONV) Past Psychological History: Depression Smoking Status: Former smoker Past Alcohol Use History: None Reported Past Drug Use History: None Reported - Past Family History Mother Family Medical History: Cancer Additional Family Medical History / Comment(s): still alive at 78 y/o Father Family Medical History: CVA/TIA Additional Family Medical History / Comment(s): at 86 y/o Medications and Allergies Home Medications Medication Instructions Recorded Confirmed Type Aspirin 81 mg PO DAILY #0 03/10/21 05/06/21 Rx Atorvastatin [Lipitor] 40 mg PO DAILY #30 tab 03/10/21 05/06/21 Rx Pantoprazole [Protonix] 40 mg PO AC-BRKFST #30 tablet. 03/10/21 05/06/21 Rx Furosemide [Lasix] 40 mg PO DAILY #7 tablet 03/25/21 05/06/21 Rx Losartan [Cozaar] 25 mg PO DAILY 04/13/21 05/06/21 History Metoprolol Succinate (ER) [Toprol 25 mg PO DAILY 04/13/21 05/06/21 History XL] Warfarin [Coumadin] 5 mg PO SUTUWEFRSA@209904/13/21 05/06/21 History Warfarin [Coumadin] 7.5 mg PO MOTH@2100 04/13/21 05/06/21 History Ibuprofen [Motrin] 600 mg PO TID PRN 05/06/21 05/06/21 History buPROPion HCL [Wellbutrin SR] 150 mg PO BID 05/06/21 05/06/21 History Allergies Allergy/AdvReac Type Severity Reaction Status Date / Time Iodinated Contrast Media AdvReac Severe Vomiting Verified 05/06/21 22:18 Surgical - Exam Vital Signs Temp Pulse Resp BP Pulse Ox 99.7 F H 98 18 137/88 98 05/06/21 17:35 05/06/21 17:35 05/06/21 17:35 05/06/21 17:35 05/06/21 17:35 CONSTITUTIONAL: Awake and alert, appears comfortable, cooperative, well- developed, well-nourished, no pain, no acute distress EYES: Pupils equal, round, reactive to light, normal ocular movement ENT: Moist mucous membranes without oral lesions present NECK: No masses, no bruits, trachea midline RESPIRATORY: Lungs sounds clear to auscultation bilaterally. Respirations even, nonlabored. Currently on room air with oxygen saturation 96%. Strong cough. CARDIOVASCULAR: S1, S2 present. Regular rate and rhythm, sinus rhythm on telemetry. Sternum stable. Palpable peripheral pulses bilaterally. No edema present. No calf pain or tenderness noted. GASTROINTESTINAL: Abdomen soft, nontender, nondistended without masses or organomegaly noted. There is no rebound or guarding present. Active bowel sounds present 4 quadrants. GENITOURINARY: Deferred INTEGUMENTARY: Skin is warm and dry with evidence of good perfusion. NEUROLOGIC: Cranial nerves II through XII intact, normal coordination, no obvious motor or sensory deficits, speech is normal MUSKULOSKELETAL: Able to move all extremities, strength equal bilaterally, normal posture PSYCHIATRIC: Alert and oriented to person place and time, appropriate affect, intact judgment and insight Results - Labs 05/07/21 08:37 05/06/21 17:52 Abnormal Lab Results - Last 24 Hours (Table) 05/06/21 05/06/21 05/06/21 Range/Units 17:52 17:52 17:52 WBC 12.2 H (3.8-10.6) k/uL Hct 37.5 L (39.0-53.0) % Neutrophils # 10.0 H (1.3-7.7) k/uL Lymphocytes # (1.0-4.8) k/uL PT 19.3 H (9.0-12.0) sec INR 2.0 H (<1.2) APTT 30.3 H (22.0-30.0) sec D-Dimer (<0.60) mg/L FEU Carbon Dioxide 21 L (22-30) mmol/L Glucose 112 H (74-99) mg/dL Total Bilirubin 1.8 H (0.2-1.3) mg/dL 05/06/21 05/07/21 Range/Units 17:52 08:37 WBC (3.8-10.6) k/uL Hct 38.0 L (39.0-53.0) % Neutrophils # 8.6 H (1.3-7.7) k/uL Lymphocytes # 0.8 L (1.0-4.8) k/uL PT (9.0-12.0) sec INR (<1.2) APTT (22.0-30.0) sec D-Dimer 0.61 H (<0.60) mg/L FEU Carbon Dioxide (22-30) mmol/L Glucose (74-99) mg/dL Total Bilirubin (0.2-1.3) mg/dL Diabetes panel 05/06/21 Range/Units 17:52 Sodium 139 (137-145) mmol/L Potassium 3.6 (3.5-5.1) mmol/L Chloride 106 (98-107) mmol/L Carbon Dioxide 21 L (22-30) mmol/L BUN 15 (9-20) mg/dL Creatinine 0.88 (0.66-1.25) mg/dL Glucose 112 H (74-99) mg/dL Calcium 9.3 (8.4-10.2) mg/dL AST 19 (17-59) U/L ALT 10 (4-49) U/L Alkaline Phosphatase 86 (38-126) U/L Total Protein 7.2 (6.3-8.2) g/dL Albumin 4.4 (3.5-5.0) g/dL Calcium panel 05/06/21 Range/Units 17:52 Calcium 9.3 (8.4-10.2) mg/dL Albumin 4.4 (3.5-5.0) g/dL Pituitary panel 05/06/21 Range/Units 17:52 Sodium 139 (137-145) mmol/L Potassium 3.6 (3.5-5.1) mmol/L Chloride 106 (98-107) mmol/L Carbon Dioxide 21 L (22-30) mmol/L BUN 15 (9-20) mg/dL Creatinine 0.88 (0.66-1.25) mg/dL Glucose 112 H (74-99) mg/dL Calcium 9.3 (8.4-10.2) mg/dL Adrenal panel 05/06/21 Range/Units 17:52 Sodium 139 (137-145) mmol/L Potassium 3.6 (3.5-5.1) mmol/L Chloride 106 (98-107) mmol/L Carbon Dioxide 21 L (22-30) mmol/L BUN 15 (9-20) mg/dL Creatinine 0.88 (0.66-1.25) mg/dL Glucose 112 H (74-99) mg/dL Calcium 9.3 (8.4-10.2) mg/dL Total Bilirubin 1.8 H (0.2-1.3) mg/dL AST 19 (17-59) U/L ALT 10 (4-49) U/L Alkaline Phosphatase 86 (38-126) U/L Total Protein 7.2 (6.3-8.2) g/dL Albumin 4.4 (3.5-5.0) g/dL - Imaging Chest x-ray: report reviewed, image reviewed CT scan - chest: report reviewed, image reviewed EKG: image reviewed Assessment and Plan Assessment: 1. Severe right-sided chest pain with radiation to the right neck, worse with inspiration, completely resolved with IV morphine/Reglan/Solu- Medrol/Benadryl/Pepcid 2. History of unicuspid aortic valve with severe aortic valve regurgitation, status post aortic valve replacement using a 25 mm On-X mechanical valve 03/04/21 3. Moderate aortic root and ascending aortic dilation with bovine arch, status post selective non-coronary sinus replacement along with ascending aortic replacement using a 32 mm gel weave straight graft 03/04/21 4. Mild mitral valve regurgitation 5. History of hypertension 6. History of chronic systolic heart failure 7. History of kidney stones 8. History of bronchitis 9. Obesity 10. History of chronic hypersomnia and possible sleep apnea syndrome 11. Previous tobacco dependence Plan: The patient was seen and examined at the bedside in the emergency room. Chart/diagnostics were reviewed. The case was discussed with Dr. Herman by phone and Dr. Davila in person. The patient reports complete resolution of his symptoms, states he feels much better and has been able to get up and walk without difficulty. We recommend continuing current medication regimen. Continue sternal precautions, this was discussed with the patient in great detail. Coumadin dosing per cardiology, goal INR 2-3 in the first 3 months, then 1.5-2 thereafter. From cardiothoracic surgery standpoint patient may be discharged to home to continue following up with cardiology and primary care. He will see Dr. Herman in the office in approximate 1 month, we will call him with an appointment time. Thank you for this consult. Please call us with any further questions. Time with Patient: Greater than 30
--- NOTE | 2021-05-07 11:27 | P.CRDCN ---
History of Present Illness History of present illness: HISTORY OF PRESENTING ILLNESS This is a pleasant 51-year-old male past medical history significant for new the cuspid aortic valve status post mechanical aortic valve replacement and aortic root replacement 02/2021, hypertension, nonischemic cardiomyopathy and dyslipidemia. He follows in the office with Dr. Saez. We have been asked to see in consultation for chest pain. She presented to the hospital with symptoms of chest discomfort in the right posterior region just below the scapula that radiates through to the right anterior chest wall that is exacerbated by deep breathing and coughing. He states he has been having a dry cough recently. He states he had a similar type experience approximately 2-3 weeks ago and at that time also presented to the emergency department was ruled out for any acute cardiopulmonary process and sent home to follow-up with Dr. Saez. He states he was supposed to follow-up in the office today with Dr. Saez however came to the emergency room last night. On arrival to the emergency department he was given IV morphine, Solu-Medrol Benadryl and Pepcid prior to undergoing a CT angio. This combination of medications did resolve his discomfort. He is seen and examined sitting up at bedside with an ongoing dry cough. He denies any further symptoms of chest discomfort. Most recent stress test performed in the office was a low level exercise tolerance test where he walked on the treadmill for 11 minutes and 36 seconds achieving a maximum heart rate of 107. He had no symptoms of angina and no arrhythmias were noted. Prior to aortic valve replacement he underwent cardiac catheterization revealing normal coronary arteries with no significant obstructive disease. DIAGNOSTICS EKG reveals sinus mechanism with first AV block with T-wave inversion in the high lateral leads and non-specific changes. Chest xray reveals a pleural reaction and subsegmental atelectasis at the lung bases worse on the right. CTA is negative for pulmonary embolism with mild interstitial infiltrate at the lung bases. Laboratory reviewed, WBC 12.2 on admission repeat today 9.8, hemoglobin 13, platelets 299, INR 1.9, d-dimer 0.61, sodium 139, potassium 3.9, creatinine 0.83, cardiac enzymes negative 3, and T proBNP 264. Current cardiac medications include aspirin 81 mg, atorvastatin 40 mg daily, Lasix 40 mg daily, losartan 25 mg daily, Toprol 25 mg daily and Coumadin. REVIEW OF SYSTEMS At the time of my exam: CONSTITUTIONAL: Denies fever or chills. CARDIOVASCULAR: Denies chest pain, shortness of breath, orthopnea, PND or palpitations. RESPIRATORY: Complains of cough. GASTROINTESTINAL: Denies abdominal pain, diarrhea, constipation, nausea or vomiting. MUSCULOSKELETAL: Denies myalgias. NEUROLOGIC: Denies numbness, tingling, headache or weakness. ENDOCRINE: Denies fatigue, weight change, polydipsia or polyurina. GENITOURINARY: Denies burning, hematuria or urgency with micturation. HEMATOLOGIC: Denies history of anemia or bleeding. PHYSICAL EXAMINATION Blood pressure 120/82 heart rate 86 afebrile and maintaining oxygen saturation on room air. CONSTITUTIONAL: No apparent distress. HEENT: Head is normocephalic. Pupils are equal, round. Sclerae anicteric. Mucous membranes of the mouth are moist. No JVD. No carotid bruit. CHEST EXAMINATION: Lungs are clear to auscultation. No chest wall tenderness is noted on palpation or with deep breathing. HEART EXAMINATION: Regular rate and rhythm. S1, S2 heard. Mechanical click, no murmurs, gallops or rub. ABDOMEN: Soft, nontender. EXTREMITIES: 2+ peripheral pulses, no lower extremity edema and no calf tenderness. NEUROLOGIC EXAMINATION: Patient is awake, alert and oriented x3. ASSESSMENT Chest pain, pleuritic Leukocytosis Possible pnemonia Unicuspid aortic valve s/p mechanical aortic valve replacement 03/04/2021 Sub therapeutic INR Non-ischemic cardiomyopathy Hypertension Dyslipidemia Chronic systolic heart failure PLAN Symptoms likely related to early onset pneumonia. Encourage incentive spirometer use. Antibiotics per primary care team. Target INR 2.5-3.5. Clinically euvolemic and not in heart failure. Stable for discharge from a cardiac perspective. Thank you kindly for this consultation. Nurse Practitioner note has been reviewed, I agree with a documented findings and plan of care. Patient was seen and examined. Past Medical History Past Medical History: Hypertension Additional Past Medical History / Comment(s): kidney stones; possible CHRIS- patient was seen by pulmonology in 03/2019 but didn't follow up with testing for CHRIS,was having SOB w/ exertion,is better. Recently passed Kidney stone on 02-13-21, History of Any Multi-Drug Resistant Organisms: None Reported Past Surgical History: Appendectomy, Coronary Bypass/CABG, Heart Catheterization Additional Past Surgical History / Comment(s): kidney stones procedure,YOVANY, aortic valve/ "arotic root" valve replaced on 03/04/21. Past Anesthesia/Blood Transfusion Reactions: Postoperative Nausea & Vomiting (PONV) Past Psychological History: Depression Smoking Status: Former smoker Past Alcohol Use History: None Reported Past Drug Use History: None Reported - Past Family History Mother Family Medical History: Cancer Additional Family Medical History / Comment(s): still alive at 78 y/o Father Family Medical History: CVA/TIA Additional Family Medical History / Comment(s): at 86 y/o Medications and Allergies Home Medications Medication Instructions Recorded Confirmed Type Aspirin 81 mg PO DAILY #0 03/10/21 05/06/21 Rx Atorvastatin [Lipitor] 40 mg PO DAILY #30 tab 03/10/21 05/06/21 Rx Pantoprazole [Protonix] 40 mg PO AC-BRKFST #30 tablet. 03/10/21 05/06/21 Rx Furosemide [Lasix] 40 mg PO DAILY #7 tablet 03/25/21 05/06/21 Rx Losartan [Cozaar] 25 mg PO DAILY 04/13/21 05/06/21 History Metoprolol Succinate (ER) [Toprol 25 mg PO DAILY 04/13/21 05/06/21 History XL] Warfarin [Coumadin] 5 mg PO SUTUWEFRSA@209904/13/21 05/06/21 History Warfarin [Coumadin] 7.5 mg PO MOTH@2100 04/13/21 05/06/21 History Ibuprofen [Motrin] 600 mg PO TID PRN 05/06/21 05/06/21 History buPROPion HCL [Wellbutrin SR] 150 mg PO BID 05/06/21 05/06/21 History Allergies Allergy/AdvReac Type Severity Reaction Status Date / Time Iodinated Contrast Media AdvReac Severe Vomiting Verified 05/06/21 22:18 Physical Exam Vitals: Vital Signs Temp Pulse Pulse Resp BP Pulse Ox 05/07/21 08:02 98.1 F 86 18 120/82 96 05/07/21 07:02 97.5 F L 79 20 121/61 95 05/07/21 04:12 72 20 125/90 05/07/21 03:03 97.2 F L 75 16 125/90 99 05/06/21 21:45 85 20 129/86 96 05/06/21 19:00 87 18 135/77 96 05/06/21 18:48 88 05/06/21 17:35 99.7 F H 98 18 137/88 98 Intake and Output 05/06/21 05/07/21 05/07/21 22:59 06:59 14:59 Other: Weight 108.862 kg Results 05/07/21 08:37 05/07/21 08:37 Cardiac Enzymes 05/06/21 05/06/21 05/06/21 Range/Units 17:52 17:52 22:30 AST 19 (17-59) U/L Troponin I <0.012 <0.012 (0.000-0.034) ng/mL 05/07/21 Range/Units 01:13 AST (17-59) U/L Troponin I <0.012 (0.000-0.034) ng/mL Coagulation 05/06/21 Range/Units 17:52 PT 19.3 H (9.0-12.0) sec APTT 30.3 H (22.0-30.0) sec CBC 05/06/21 05/07/21 Range/Units 17:52 08:37 WBC 12.2 H 9.8 (3.8-10.6) k/uL RBC 4.56 4.57 (4.30-5.90) m/uL Hgb 13.0 13.0 (13.0-17.5) gm/dL Hct 37.5 L 38.0 L (39.0-53.0) % Plt Count 308 299 (150-450) k/uL Comprehensive Metabolic Panel 05/06/21 Range/Units 17:52 Sodium 139 (137-145) mmol/L Potassium 3.6 (3.5-5.1) mmol/L Chloride 106 (98-107) mmol/L Carbon Dioxide 21 L (22-30) mmol/L BUN 15 (9-20) mg/dL Creatinine 0.88 (0.66-1.25) mg/dL Glucose 112 H (74-99) mg/dL Calcium 9.3 (8.4-10.2) mg/dL AST 19 (17-59) U/L ALT 10 (4-49) U/L Alkaline Phosphatase 86 (38-126) U/L Total Protein 7.2 (6.3-8.2) g/dL Albumin 4.4 (3.5-5.0) g/dL Current Medications Generic Name Dose Route Start Last Admin Trade Name Georgie PRN Reason Stop Dose Admin Aspirin 81 mg 05/07/21 09:00 05/07/21 07:58 Aspirin 81 Mg PO 81 mg DAILY SWATI Administration Atorvastatin Calcium 40 mg 05/06/21 23:00 05/07/21 07:58 Atorvastatin 40 Mg Tab PO 40 mg DAILY SWATI Administration Bupropion HCl 150 mg 05/06/21 23:00 05/07/21 07:58 Bupropion Sr 150 Mg Tablet.Er PO 150 mg BID SWATI Administration Furosemide 40 mg 05/07/21 09:00 05/07/21 07:58 Furosemide 40 Mg Tab PO 40 mg DAILY SWATI Administration Losartan Potassium 25 mg 05/07/21 09:00 05/07/21 07:58 Losartan 25 Mg Tab PO 25 mg DAILY SWATI Administration Metoprolol Succinate 25 mg 05/07/21 09:00 05/07/21 07:58 Metoprolol Succinate (Er) 25 Mg Tab.Er.24h PO 25 mg DAILY SWATI Administration Miscellaneous Information 0 each 05/07/21 07:43 Warfarin Per Pharmacy MISCELLANE DIRECTED PRN ANTICOAG Morphine Sulfate 4 mg 05/06/21 22:13 Morphine Sulfate 4 Mg/Ml Syringe IV Q4HR PRN Severe Pain Naloxone HCl 0.2 mg 05/06/21 22:13 Naloxone 0.4 Mg/Ml 1 Ml Vial IV Q2M PRN Opioid Reversal Pantoprazole Sodium 40 mg 05/07/21 07:30 05/07/21 07:58 Pantoprazole 40 Mg Tablet PO 40 mg AC-BRKFST SWATI Administration Warfarin Sodium 5 mg 05/07/21 18:00 Warfarin 5 Mg Tab PO SuTuWeFrSa@1800 [facility] Protocol Warfarin Sodium 7.5 mg 05/09/21 18:00 Warfarin 7.5 Mg Tab PO MoTh@1800 [facility] Protocol Intake and Output 05/06/21 05/07/21 05/07/21 22:59 06:59 14:59 Other: Weight 108.862 kg 05/07/21 08:37 05/06/21 17:52
[2021-05-07 12:10] VITALS: BP 129/76; PULSE 76; TEMP 97.6
[2021-05-07] MEDS ORDERED: WARFARIN 5 MG TAB PO SCH (18:00)
[2021-05-07] MEDS ORDERED: WARFARIN 7.5 MG TAB PO ONE (18:00)
--- NOTE | 2021-05-07 19:28 | P.HPIM ---
History of Present Illness H&P Date: 05/07/21 Chief Complaint: Chest pain History of presenting complaint: This is a very pleasant 51-year-old patient follows with Dr. Shannon. Chronic stable medical conditions include hypertension, hyperlipidemia, cardiomyopathy EF of about 30-35%. Patient has a mechanical aortic valve for which he is on Coumadin. 03/04/21 underwent aortic valve replacement with a mechanical valve by Dr. Heaton. Previously YOVANY showed reduced EF. Cardiac catheterization - normal coronaries. Patient also supposed to have a follow for sleep study but hasn't been able to the same. Patient was seen here on April 14 in the hospital with chest pain. [place] to be muscular skeletal. Patient was discharged Patient yet again presented with same nature of pain some in the back some and the right part of the chest anteriorly of the neck. Also getting a headache. Patient feeling rather miserable. Was supposed to have a cardiology outpatient visit today, but decided to come in the evening yesterday. After patient receives steroids in preparation for his contrast study for the computed peewee graphy scan symptoms resolved. There was also some pleuritic nature to the pain. Has been feeling well this morning. No more pain. Patient's [id number] Mckayla the bedside Review of systems: GEN.: Tired EYES: None HEENT: None NECK: None RESPIRATORY: Mild shortness of breath CARDIOVASCULAR: None GASTROINTESTINAL: None GENITOURINARY: None MUSCULOSKELETAL: None LYMPHATICS: None HEMATOLOGICAL: None PSYCHIATRY: None NEUROLOGICAL: Poor sleep Past medical history to include: Mechanical aortic valve on February 2021 on Coumadin, hypertension, hyperlipidemia, normal cardiac catheterization, EF 30-35% Social history: No alcohol. Patient finally stopped smoking in August 2020. Breathing about half a pack per week. 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 . Family history: Cancer Physical examination: VITAL SIGNS: 97.5, 79, 20, 121/61, 95% room air GENERAL: BMI laying in bed, comfortable EYES: Pupils equal. Conjunctiva normal. HEENT: External appearance of nose and ears normal, oral cavity grossly normal. NECK: JVD not raised; masses not palpable. HEART: Mechanical heart sound; no edema. LUNGS: Respiratory rate normal; clear to auscultation. ABDOMEN: Soft, nontender, liver spleen not palpable, no masses palpable. PSYCH: Alert and oriented x3; mood and affect normal NEUROLOGICAL: Cranial nerves grossly intact; no facial asymmetry, power and sensation grossly intact. LYMPHATICS: No lymph nodes palpable in the axilla and neck INVESTIGATIONS, reviewed in the clinical context: White count 9.8 hemoglobin 13 platelets 299 INR 1.9 potassium 3.9 creatinine 0.83 Admission labs: White count 12.2 hemoglobin 13 potassium 3.6 creatinine 0.88 Troponin I 3 negative EKG tracing personally reviewed by me-sinus rhythm, some nonspecific ST segment changes with/LVH Chest x-ray film personally reviewed by me-no obvious infiltrate. Some postoperative changes CT soft tissue neck with contrast: Negative CT chest and U for PE: Negative for PE. Assessment and plan: -Acute anterior chest wall pain, possibly musculoskeletal. Cardiac cause unlikely. This could be postop inflammation tissue that seems to respond to steroids. With some pleuritic nature. -Mechanical aortic valve on 03/04/2021 Continue with Coumadin -Coumadin monitoring Pharmacy to dose -Chronic insomnia for medical condition -Hyperlipidemia Lipitor 40 mg daily -Chronic nonischemic cardiomyopathy from aortic valve disorder, EF 30-35% -Essential hypertension Toprol-XL 25 mg a day, Cozaar 25 mg a day -Patient is followed patient workup of obstructive sleep apnea Home medications resumed. Cardiology and cardiothoracic surgery was consulted. It was also discussed with the patient. Questions answered. Patient is feeling better. Past Medical History Past Medical History: Heart Failure, Hypertension Additional Past Medical History / Comment(s): kidney stones; possible CHRIS- patient was seen by pulmonology in 03/2019 but didn't follow up with testing for CHRIS,was having SOB w/ exertion,is better. Recently passed Kidney stone on 02-13-21, History of Any Multi-Drug Resistant Organisms: None Reported Past Surgical History: Appendectomy, Heart Catheterization Additional Past Surgical History / Comment(s): kidney stones procedure,YOVANY, aortic valve replacement with non-coronary sinus replacement and ascending aorta replacement on 03/04/21. Past Anesthesia/Blood Transfusion Reactions: Postoperative Nausea & Vomiting (P ONV) Past Psychological History: Depression Smoking Status: Former smoker Past Alcohol Use History: None Reported Past Drug Use History: None Reported - Past Family History Mother Family Medical History: Cancer Additional Family Medical History / Comment(s): still alive at 78 y/o Father Family Medical History: CVA/TIA Additional Family Medical History / Comment(s): at 86 y/o Medications and Allergies Home Medications Medication Instructions Recorded Confirmed Type Aspirin 81 mg PO DAILY #0 03/10/21 05/06/21 Rx Atorvastatin [Lipitor] 40 mg PO DAILY #30 tab 03/10/21 05/06/21 Rx Pantoprazole [Protonix] 40 mg PO AC-BRKFST #30 tablet. 03/10/21 05/06/21 Rx Furosemide [Lasix] 40 mg PO DAILY #7 tablet 03/25/21 05/06/21 Rx Losartan [Cozaar] 25 mg PO DAILY 04/13/21 05/06/21 History Metoprolol Succinate (ER) [Toprol 25 mg PO DAILY 04/13/21 05/06/21 History XL] Warfarin [Coumadin] 5 mg PO SUTUWEFRSA@209904/13/21 05/06/21 History Warfarin [Coumadin] 7.5 mg PO MOTH@209904/13/21 05/06/21 History Ibuprofen [Motrin] 600 mg PO TID PRN 05/06/21 05/06/21 History buPROPion HCL [Wellbutrin SR] 150 mg PO BID 05/06/21 05/06/21 History Allergies Allergy/AdvReac Type Severity Reaction Status Date / Time Iodinated Contrast Media AdvReac Severe Vomiting Verified 05/06/21 22:18 Physical Exam Vitals: Vital Signs Temp Pulse Pulse Resp BP Pulse Ox 05/07/21 08:02 98.1 F 86 18 120/82 96 05/07/21 07:02 97.5 F L 79 20 121/61 95 05/07/21 04:12 72 20 125/90 05/07/21 03:03 97.2 F L 75 16 125/90 99 05/06/21 21:45 85 20 129/86 96 05/06/21 19:00 87 18 135/77 96 05/06/21 18:48 88 05/06/21 17:35 99.7 F H 98 18 137/88 98 Intake and Output 05/06/21 05/07/21 05/07/21 22:59 06:59 14:59 Other: Weight 108.862 kg Results CBC & Chem 7: 05/07/21 08:37 05/07/21 08:37 Labs: Abnormal Lab Results - Last 24 Hours (Table) 05/06/21 05/06/21 05/06/21 Range/Units 17:52 17:52 17:52 WBC 12.2 H (3.8-10.6) k/uL Hct 37.5 L (39.0-53.0) % Neutrophils # 10.0 H (1.3-7.7) k/uL Lymphocytes # (1.0-4.8) k/uL PT 19.3 H (9.0-12.0) sec INR 2.0 H (<1.2) APTT 30.3 H (22.0-30.0) sec D-Dimer (<0.60) mg/L FEU Carbon Dioxide 21 L (22-30) mmol/L Glucose 112 H (74-99) mg/dL Total Bilirubin 1.8 H (0.2-1.3) mg/dL 05/06/21 05/07/21 05/07/21 Range/Units 17:52 08:37 08:37 WBC (3.8-10.6) k/uL Hct 38.0 L (39.0-53.0) % Neutrophils # 8.6 H (1.3-7.7) k/uL Lymphocytes # 0.8 L (1.0-4.8) k/uL PT (9.0-12.0) sec INR (<1.2) APTT (22.0-30.0) sec D-Dimer 0.61 H (<0.60) mg/L FEU Carbon Dioxide (22-30) mmol/L Glucose 146 H (74-99) mg/dL Total Bilirubin (0.2-1.3) mg/dL 05/07/21 Range/Units 08:37 WBC (3.8-10.6) k/uL Hct (39.0-53.0) % Neutrophils # (1.3-7.7) k/uL Lymphocytes # (1.0-4.8) k/uL PT 18.5 H (9.0-12.0) sec INR 1.9 H (<1.2) APTT (22.0-30.0) sec D-Dimer (<0.60) mg/L FEU Carbon Dioxide (22-30) mmol/L Glucose (74-99) mg/dL Total Bilirubin (0.2-1.3) mg/dL
--- NOTE | 2021-05-07 19:30 | P.DS ---
Providers Date of admission: 05/06/21 22:15 Expected date of discharge: 05/07/21 Attending physician: Teodoro Almeida Consults: 05/06/21 22:14 Consult Physician Urgent Consulting Provider: Ki Prabhakar Consult Reason/Comments: acute chest pain s/p avr Do you want consulting provider notified?: Yes Consult Physician Urgent Consulting Provider: Teena Herman Consult Reason/Comments: chest pain s/p avr Do you want consulting provider notified?: Yes Primary care physician: Sagar Shannon [facility] Course: Chief Complaint: Chest pain History of presenting complaint: This is a very pleasant 51-year-old patient follows with Dr. Shannon. Chronic stable medical conditions include hypertension, hyperlipidemia, cardiomyopathy EF of about 30-35%. Patient has a mechanical aortic valve for which he is on Coumadin. 03/04/21 underwent aortic valve replacement with a mechanical valve by Dr. Heaton. Previously YOVANY showed reduced EF. Cardiac catheterization - normal coronaries. Patient also supposed to have a follow for sleep study but hasn't been able to the same. Patient was seen here on April 14 in the hospital with chest pain. [place] to be muscular skeletal. Patient was discharged Patient yet again presented with same nature of pain some in the back some and the right part of the chest anteriorly of the neck. Also getting a headache. Patient feeling rather miserable. Was supposed to have a cardiology outpatient visit today, but decided to come in the evening yesterday. After patient receives steroids in preparation for his contrast study for the computed tomography scan symptoms resolved. There was also some pleuritic nature to the pain. Has been feeling well this morning. No more pain. Patient's [id number] Mckayla the bedside Patient is cleared by cardiology and cardiothoracic surgery. Care was discussed with the patient. Consultation: Cardiology associates Cardiothoracic surgery Past medical history to include: Mechanical aortic valve on February 2021 on Coumadin, hypertension, hyperlipidemia, normal cardiac catheterization, EF 30-35% Social history: No alcohol. Patient finally stopped smoking in August 2020. Breathing about half a pack per week. 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 . Family history: Cancer Physical examination: VITAL SIGNS: 97.6, 76, 18, 129/76, 96% room air GENERAL: BMI laying in bed, comfortable EYES: Pupils equal. Conjunctiva normal. HEENT: External appearance of nose and ears normal, oral cavity grossly normal. NECK: JVD not raised; masses not palpable. HEART: Mechanical heart sound; no edema. LUNGS: Respiratory rate normal; clear to auscultation. ABDOMEN: Soft, nontender, liver spleen not palpable, no masses palpable. PSYCH: Alert and oriented x3; mood and affect normal INVESTIGATIONS, reviewed in the clinical context: White count 9.8 hemoglobin 13 platelets 299 INR 1.9 potassium 3.9 creatinine 0.83 Admission labs: White count 12.2 hemoglobin 13 potassium 3.6 creatinine 0.88 Troponin I 3 negative EKG tracing personally reviewed by me-sinus rhythm, some nonspecific ST segment changes with/LVH Chest x-ray film personally reviewed by me-no obvious infiltrate. Some postoperative changes CT soft tissue neck with contrast: Negative CT chest and U for PE: Negative for PE. Assessment and plan: -Acute anterior chest wall pain, possibly musculoskeletal. : Resolved This could be postop inflammation tissue that seems to respond to steroids. With some pleuritic nature. -Mechanical aortic valve on 03/04/2021 Continue with Coumadin -Coumadin monitoring Pharmacy to dose -Chronic insomnia for medical condition -Hyperlipidemia Lipitor 40 mg daily -Chronic nonischemic cardiomyopathy from aortic valve disorder, EF 30-35% -Essential hypertension Toprol-XL 25 mg a day, Cozaar 25 mg a day -Patient is followed patient workup of obstructive sleep apnea Disposition: Home Patient Condition at Discharge: Stable Plan - Discharge Summary New Discharge Prescriptions: Continue Furosemide [Lasix] 40 mg PO DAILY #7 tablet Warfarin [Coumadin] 5 mg PO SUTUWEFRSA@2100 Metoprolol Succinate (ER) [Toprol XL] 25 mg PO DAILY Losartan [Cozaar] 25 mg PO DAILY Ibuprofen [Motrin] 600 mg PO TID PRN PRN Reason: Pain Atorvastatin [Lipitor] 40 mg PO DAILY #30 tab Pantoprazole [Protonix] 40 mg PO AC-BRKFST #30 tablet. Aspirin 81 mg PO DAILY #0 Warfarin [Coumadin] 7.5 mg PO MOTH@2100 buPROPion HCL [Wellbutrin SR] 150 mg PO BID Discharge Medication List Aspirin 81 mg PO DAILY #0 03/10/21 [Rx] Atorvastatin [Lipitor] 40 mg PO DAILY #30 tab 03/10/21 [Rx] Pantoprazole [Protonix] 40 mg PO AC-BRKFST #30 tablet. 03/10/21 [Rx] Furosemide [Lasix] 40 mg PO DAILY #7 tablet 03/25/21 [Rx] Losartan [Cozaar] 25 mg PO DAILY 04/13/21 [History] Metoprolol Succinate (ER) [Toprol XL] 25 mg PO DAILY 04/13/21 [History] Warfarin [Coumadin] 5 mg PO SUTUWEFRSA@209904/13/21 [History] Warfarin [Coumadin] 7.5 mg PO MOTH@209904/13/21 [History] Ibuprofen [Motrin] 600 mg PO TID PRN 05/06/21 [History] buPROPion HCL [Wellbutrin SR] 150 mg PO BID 05/06/21 [History] Follow up Appointment(s)/Referral(s): Sagar Shannon DO [Primary Care Provider] - 1-2 days Jonny Saez MD [STAFF PHYSICIAN] - 2 Weeks Teena Herman MD [STAFF PHYSICIAN] - (Office will call with appointment at the end of May-beginning of Jun) Activity/Diet/Wound Care/Special Instructions: Continue sternal precautions (no lifting, pushing, pulling anything heavier than 10 pounds) for full 3 months post surgery Discharge Disposition: HOME SELF-CARE
[2021-05-09] MEDS ORDERED: WARFARIN 7.5 MG TAB PO SCH (18:00)
== END 2021-05-07 13:23 | disposition home or self-care (01) ==
LOC: EC 16:24 → 6NMEDSUR 22:15
PROVIDERS: ADMIT Hospitalist; ATTEND Hospitalist
DX: R07.89 Other chest pain (principal); I44.0 Atrioventricular block, first degree; E78.5 Hyperlipidemia, unspecified; I77.810 Thoracic aortic ectasia; I50.22 Chronic systolic (congestive) heart failure; F32.9 Major depressive disorder, single episode, unspecified; F51.04 Psychophysiologic insomnia; I11.0 Hypertensive heart disease with heart failure; I35.1 Nonrheumatic aortic (valve) insufficiency; D72.829 Elevated white blood cell count, unspecified; I42.8 Other cardiomyopathies; E66.9 Obesity, unspecified; J98.11 Atelectasis; Z79.01 Long term (current) use of anticoagulants; Z79.82 Long term (current) use of aspirin; Z79.899 Other long term (current) drug therapy; Z87.442 Personal history of urinary calculi; Z87.891 Personal history of nicotine dependence; Z91.041 Radiographic dye allergy status; Z95.1 Presence of aortocoronary bypass graft; Z95.3 Presence of xenogenic heart valve
CPT/HCPCS: 99285; 96374; 96375; 36415; 93005; 85379; 83880; 80053; 80048; 84484 ×2; 85025 ×2; 85610 ×2; 85730; 71046; 70491; 71275; G0378 ×2; J2270; J1200; J2765; J2930; S0106 ×2; Q9967

== ENCOUNTER → 2021-10-16 | Outpatient (CLI) | payer BC ==
[2021-10-16 11:29] LABS: HCT 41.4 % (39.6-50.0); HGB 13.7 g/dL (13.0-17.0); MCH 27.5 pg (27.0-32.0); MCHC 33.1 g/dL (32.0-37.0); Mean Platelet Volume 9.7 fL (9.5-12.2); NRBC Per 100 WBC 0 /100 WBCS (0.0-0.0); Platelet Count 293 X 10*3/uL (140-440); RBC 4.99 X 10*6/uL (4.40-5.60); RDW 13.6 % (11.5-14.5)
[2021-10-16 17:09] LABS: ALT 16 U/L (10-49); AST 22 U/L (14-35); African American GFR (CKD) 113.6 (60.0-200.0); Albumin 4.3 g/dL (3.8-4.9); Albumin/Globulin Ratio 1.72 (1.60-3.17); Alkaline Phosphatase 84 U/L (41-126); BUN/Creat Ratio 10.86 Ratio (12.00-20.00); Blood Urea Nitrogen 9.9 mg/dL (9.0-27.0); Calcium 9.2 mg/dL (8.7-10.3); Carbon Dioxide 24.2 mmol/L (20.0-27.5); Chloride 106 mmol/L (96-109); Chol/HDL Ratio 4.67 Ratio; Creatine Kinase 133 U/L (35-257); Globulin 2.5 g/dL (1.6-3.3); Glucose 102 mg/dL (70-110); LDL Cholesterol,Calculated 45.9 mg/dL (0.0-131.0); Magnesium 2.2 mg/dL (1.5-2.4); Non-African American GFR(CKD) 98.1 (60.0-200.0); Potassium 4.2 mmol/L (3.5-5.5); Sodium 141 mmol/L (135-145); Total Protein 6.7 g/dL (6.2-8.2)
== END | disposition home or self-care (01) ==
LOC: LABWHC1 07:20
PROVIDERS: ATTEND Nurse Practitioner Adult Health
DX: E78.5 Hyperlipidemia, unspecified (principal); I10 Essential (primary) hypertension; R00.2 Palpitations
CPT/HCPCS: 36415; 80053; 80061; 82550; 83735; 84443; 85027

== ENCOUNTER 2023-05-13 16:28 | Inpatient (IN) | payer BC ==
[2023-05-13] MEDS ORDERED: IBUPROFEN 600 MG TAB PO STA (16:41)
[2023-05-13] MEDS ORDERED: ACETAMINOPHEN TAB 500 MG TAB PO STA (16:41)
[2023-05-13] MEDS: SODIUM CHLORIDE 0.9% 500 ML 500 ML IV SCH ×4 (17:00→19:20)
[2023-05-13 17:24] LABS: Basophils % (A) 0 %; Eosinophils % (A) 0 %; HCT 45.2 % (39.0-53.0); HGB 15.7 gm/dL (13.0-17.5); Lymphocytes # (A) 0.8 k/uL (1.0-4.8); Lymphocytes % (A) 6 %; MCH 28.6 pg (25.0-35.0); MCHC 34.8 g/dL (31.0-37.0); MCV 82.1 fL (80.0-100.0); Mean Platelet Volume 7.5; Monocytes # (A) 0.6 k/uL (0-1.0); Monocytes % (A) 5 %; Neutrophils # (A) 11.3 k/uL (1.3-7.7); Neutrophils % (A) 88 %; Platelet Count 211 k/uL (150-450); RDW 13.5 % (11.5-15.5); WBC 12.8 k/uL (3.8-10.6)
[2023-05-13 17:34] LABS: INR 3.8 (<1.2); Partial Thromboplastin Time 43.8 sec (22.0-30.0); Prothrombin Time 37.2 sec (9.0-12.0)
[2023-05-13 17:45] LABS: ALT 27 U/L (4-49); AST 32 U/L (17-59); African American GFR (CKD) >90 (>60 ml/min/1.73 sqM); Albumin 4.6 g/dL (3.5-5.0); Alkaline Phosphatase 80 U/L (38-126); Anion Gap 9 mmol/L; Blood Urea Nitrogen 9 mg/dL (9-20); Calcium 9.4 mg/dL (8.4-10.2); Carbon Dioxide 24 mmol/L (22-30); Chloride 103 mmol/L (98-107); Glucose 107 mg/dL (74-99); Non-African American GFR(CKD) >90 (>60 ml/min/1.73 sqM); Potassium 3.8 mmol/L (3.5-5.1); Sodium 136 mmol/L (137-145); Total Bilirubin 2.1 mg/dL (0.2-1.3); Total Protein 7.7 g/dL (6.3-8.2)
--- NOTE | 2023-05-13 19:31 | XR ---
EXAM: XR Chest, 2 Views CLINICAL HISTORY: fever, stroke like symptoms. Hx aortic valve replacement TECHNIQUE: Frontal and lateral views of the chest. COMPARISON: None FINDINGS: Hardware: None. Lungs/pleura: Normal. No focal consolidation. No pleural effusion or pneumothorax. Heart/mediastinum: Median sternotomy changes. Left atrial appendage. Prosthetic heart valve. No cardiomegaly. Soft tissues: Unremarkable. Bones: No acute fracture. Upper abdomen: Normal. IMPRESSION: No acute disease identified.
[2023-05-13 20:04] LABS: Appearance,Urine Clear (Clear); Bacteria,Urine Rare /hpf; Bilirubin,Urine Negative (Negative); Blood,Urine Trace (Negative); Color,Urine Colorless; Glucose,Urine (UA) Negative (Negative); Ketones,Urine Trace (Negative); Leukocyte Esterase,Urine Negative (Negative); Mucus,Urine Rare /hpf; Nitrite,Urine Negative (Negative); Protein,Urine Negative (Negative); RBC,Urine 3 /hpf (0-5); Urobilinogen,Urine <2.0 mg/dL (<2.0); WBC,Urine <1 /hpf (0-5)
[2023-05-13] MEDS ORDERED: cefTRIAXone IN SWFI 1,000 MG/10 ML SYRINGE IVP STA (20:29)
[2023-05-13] MEDS ORDERED: VANCOMYCIN IV PER PHARMACY 1 EACH MISC MISCELLANE PRN (20:30)
[2023-05-13] MEDS ORDERED: VANCOMYCIN 1,750 MG in SODIUM CHLORIDE 0.9% 500 ML 500 ML IVPB STA (20:37)
[2023-05-13] MEDS ORDERED: SODIUM CHLORIDE 0.9% 1,000 ML IV ONE (20:42)
--- NOTE | 2023-05-13 20:42 | ED ---
General Adult HPI - General Chief complaint: Chest Pain Stated complaint: stroke Time Seen by Provider: 05/13/23 16:30 Source: patient, RN notes reviewed, old records reviewed Mode of arrival: wheelchair Limitations: no limitations - History of Present Illness Initial comments: This is a 53-year-old male who presents emergency Department with the complaint of intermittent chest pain patient also complains of a headache and shortness of breath. Patient states she feels extremely weak. Patient has a fever. Patient denies any abdominal pain patient denies any nausea. Patient states he did have some episodes of diarrhea. Patient states symptoms worsened 4 hours ago. - Related Data Home Medications Medication Instructions Recorded Confirmed Losartan [Cozaar] 25 mg PO DAILY 04/13/21 05/13/23 Metoprolol Succinate (ER) [Toprol 25 mg PO BID 04/13/21 05/13/23 XL] Warfarin [Coumadin] 7.5 mg PO HS 04/13/21 05/13/23 Multivitamins, Thera [Multivitamin 1 tab PO DAILY 05/13/23 05/13/23 (formulary)] Pantoprazole [Protonix] 40 mg PO DAILY 05/13/23 05/13/23 Potassium Gluconate 90mg 90 mg PO DAILY 05/13/23 05/13/23 Rosuvastatin Calcium 5 mg PO DAILY 05/13/23 05/13/23 Previous Rx's Medication Instructions Recorded Aspirin 81 mg PO DAILY #0 03/10/21 Allergies Allergy/AdvReac Type Severity Reaction Status Date / Time Iodinated Contrast Media AdvReac Severe Vomiting Verified 05/13/23 18:20 Review of Systems ROS Statement: Those systems with pertinent positive or pertinent negative responses have been documented in the HPI. ROS Other: All systems not noted in ROS Statement are negative. Past Medical History Past Medical History: Coronary Artery Disease (CAD), Hypertension Additional Past Medical History / Comment(s): kidney stones; possible CHRIS- patient was seen by pulmonology in 03/2019 but didn't follow up with testing for CHRIS,was having SOB w/ exertion,is better. Recently passed Kidney stone on 02-13-21, History of Any Multi-Drug Resistant Organisms: None Reported Past Surgical History: Appendectomy, Coronary Bypass/CABG, Heart Catheterization Additional Past Surgical History / Comment(s): kidney stones procedure,YOVANY, aortic valve/ "arotic root" valve replaced on 03/04/21. Past Anesthesia/Blood Transfusion Reactions: Postoperative Nausea & Vomiting (PONV) Past Psychological History: Depression Smoking Status: Former smoker Past Alcohol Use History: None Reported Past Drug Use History: None Reported - Past Family History Mother Family Medical History: Cancer Additional Family Medical History / Comment(s): still alive at 78 y/o Father Family Medical History: CVA/TIA Additional Family Medical History / Comment(s): at 86 y/o General Exam - General Exam Comments Initial Comments: GENERAL: Patient is well-developed and well-nourished. Patient is nontoxic and well- hydrated and is in moderate distress. ENT: Neck is soft and supple. No significant lymphadenopathy is noted. Oropharynx is clear. Moist mucous membranes. Neck has full range of motion without eliciting any pain. EYES: The sclera were anicteric and conjunctiva were pink and moist. Extraocular movements were intact and pupils were equal round and reactive to light. Eyelids were unremarkable. PULMONARY: Unlabored respirations. Good breath sounds bilaterally. No audible rales rhonchi or wheezing was noted. CARDIOVASCULAR: Patient is tachycardic at 121 bpm ABDOMEN: Soft and nontender with normal bowel sounds. SKIN: Skin is clear with no lesions or rashes and otherwise unremarkable. NEUROLOGIC: Patient is alert and oriented x3. Cranial nerves II through XII are grossly intact. Motor and sensory are also intact. Normal speech, volume and content. Symmetrical smile. MUSCULOSKELETAL: Normal extremities with adequate strength and full range of motion. LYMPHATICS: No significant lymphadenopathy is noted PSYCHIATRIC: Normal psychiatric evaluation. Limitations: no limitations Course Vital Signs 05/13/23 05/13/23 05/13/23 16:30 19:20 19:37 Temperature 102.9 F H 98.9 F Pulse Rate 129 H 96 95 Respiratory 24 18 18 Rate Blood Pressure 151/81 134/75 135/80 O2 Sat by Pulse 97 98 97 Oximetry Medical Decision Making - Medical Decision Making EKG was interpreted by myself EKG shows sinus tachycardia at 121 bpm CA interval is 206 QRS is 93 QT interval is 291 QTC is 363. Patient's G shows no ST segment elevation or depression. Was pt. sent in by a medical professional or institution (, PA, CLOTHING AND TEXTILES TEACHER, urgent care, hospital, or [facility]...) When possible be specific @ -[No] Did you speak to anyone other than the patient for history (EMS, parent, family, police, friend...)? What history was obtained from this source @ -Family gave some of the history. Did you review nursing and triage notes (agree or disagree)? Why? @ -[I reviewed and agree with nursing and triage notes] Were old charts reviewed (outside hosp., previous admission, EMS record, old EKG, old radiological studies, urgent care reports/EKG's, [facility] records)? Report findings @ -I reviewed prior transient prior lab work Differential Diagnosis (chest pain, altered mental status, abdominal pain women, abdominal pain men, vaginal bleeding, weakness, fever, dyspnea, syncope, headache, dizziness, GI bleed, back pain, seizure, CVA, palpatations, mental health, musculoskeletal)? @ -Differential Fever: Pneumonia, viral URI, endocarditis, myocarditis, pericarditis, otitis, sinusitis, peritonsillar Abscess, retropharyngeal Abscess, epiglottitis, peritonitis, appendicitis, Fabi cystitis, diverticulitis, hepatitis, colitis, UTI, PID, TOA, pyelonephritis, prostatitis, epididymitis, meningitis, encephalitis, pulmonary embolism, CVA, thyroid storm, pancreatitis, adrenal crisis, cavernous sinus thrombosis, this is not meant to be an all-inclusive list. EKG interpreted by me (3pts min.). @ -[As above] X-rays interpreted by me (1pt min.). @ -Chest x-ray shows no acute abnormality CT interpreted by me (1pt min.). @ -[None done] U/S interpreted by me (1pt. min.). @ -[None done] What testing was considered but not performed or refused? (CT, X-rays, U/S, labs)? Why? @ -[None] What meds were considered but not given or refused? Why? @ -[None] Did you discuss the management of the patient with other professionals (professionals i.e. , PA, CLOTHING AND TEXTILES TEACHER, lab, RT, psych nurse, social media analyst, maintenance pipefitter, teacher, environmental technical officer, heel caser)? Give summary @ -I spoke with Dr. Almeida he agreed to admit the patient admitted the patient wrote admitting orders Was smoking cessation discussed for >3mins.? @ -[No] Was critical care preformed (if so, how long)? @ -[No] Were there social determinants of health that impacted care today? How? (Homelessness, low income, unemployed, alcoholism, drug addiction, transportation, low edu. Level, literacy, decrease access to med. care, fpc, rehab)? @ -[No] Was there de-escalation of care discussed even if they declined (Discuss DNR or withdrawal of care, Hospice)? DNR status @ -[No] What co-morbidities impacted this encounter? (DM, HTN, Smoking, COPD, CAD, Cancer, CVA, ARF, Chemo, Hep., AIDS, mental health diagnosis, sleep apnea, morbi d obesity)? @ -[None] Was patient admitted / discharged? Hospital course, mention meds given and route, prescriptions, significant lab abnormalities, going to OR and other pertinent info. @ -Computer system went down in the midst of seeing this patient so that was sudden lag time between the initial comments on and went all the lab work came back. Patient was reevaluated at that time feeling much better in no distress at that time however family then informed me that the patient has a heart valve which was not indicated to me initially. I started the patient at that point, and Catarina and Xi. This occurred at 8:35 PM Undiagnosed new problem with uncertain prognosis? @ -[No] Drug Therapy requiring intensive monitoring for toxicity (Heparin, Nitro, Insulin, Cardizem)? @ -[No] Were any procedures done? @ -[No] Diagnosis/symptom? @ -Fever of unknown origin Acute, or Chronic, or Acute on Chronic? @ -Acute Uncomplicated (without systemic symptoms) or Complicated (systemic symptoms)? @ -Complicated Side effects of treatment? @ -[No] Exacerbation, Progression, or Severe Exacerbation? @ -[No] Poses a threat to life or bodily function? How? (Chest pain, [place], [place], pneumonia, PE, COPD, DKA, ARF, appy, cholecystitis, CVA, Diverticulitis, Homicidal, Suicidal, threat to staff... and all critical care pts) @ -Yes this could lead to sepsis and significant end organ dysfunction - Lab Data Result diagrams: 05/13/23 17:10 05/13/23 17:10 Lab Results 05/13/23 05/13/23 05/13/23 Range/Units 17:10 17:10 17:10 WBC 12.8 H (3.8-10.6) k/uL RBC 5.50 (4.30-5.90) m/uL Hgb 15.7 (13.0-17.5) gm/dL Hct 45.2 (39.0-53.0) % MCV 82.1 (80.0-100.0) fL MCH 28.6 (25.0-35.0) pg MCHC 34.8 (31.0-37.0) g/dL RDW 13.5 (11.5-15.5) % Plt Count 211 (150-450) k/uL MPV 7.5 Neutrophils % 88 % Lymphocytes % 6 % Monocytes % 5 % Eosinophils % 0 % Basophils % 0 % Neutrophils # 11.3 H (1.3-7.7) k/uL Lymphocytes # 0.8 L (1.0-4.8) k/uL Monocytes # 0.6 (0-1.0) k/uL Eosinophils # 0.0 (0-0.7) k/uL Basophils # 0.0 (0-0.2) k/uL PT 37.2 H (9.0-12.0) sec INR 3.8 H (<1.2) APTT 43.8 H (22.0-30.0) sec Sodium (137-145) mmol/L Potassium (3.5-5.1) mmol/L Chloride (98-107) mmol/L Carbon Dioxide (22-30) mmol/L Anion Gap mmol/L BUN (9-20) mg/dL Creatinine (0.66-1.25) mg/dL Est GFR (CKD-EPI)AfAm (>60 ml/min/1.73 sqM) Est GFR (CKD-EPI)NonAf (>60 ml/min/1.73 sqM) Glucose (74-99) mg/dL Plasma Lactic Acid Jhon (0.7-2.0) mmol/L Calcium (8.4-10.2) mg/dL Total Bilirubin (0.2-1.3) mg/dL AST (17-59) U/L ALT (4-49) U/L Alkaline Phosphatase (38-126) U/L Troponin I (0.000-0.034) ng/mL Total Protein (6.3-8.2) g/dL Albumin (3.5-5.0) g/dL Urine Color Colorless Urine Appearance Clear (Clear) Urine pH 7.0 (5.0-8.0) Ur Specific [place] 1.010 (1.001-1.035) Urine Protein Negative (Negative) Urine Glucose (UA) Negative (Negative) Urine Ketones Trace H (Negative) Urine Blood Trace H (Negative) Urine Nitrite Negative (Negative) Urine Bilirubin Negative (Negative) Urine Urobilinogen <2.0 (<2.0) mg/dL Ur Leukocyte Esterase Negative (Negative) Urine RBC 3 (0-5) /hpf Urine WBC <1 (0-5) /hpf Urine Bacteria Rare H (None) /hpf Urine Mucus Rare H (None) /hpf Influenza Type A (PCR) (Not Detectd) Influenza Type B (PCR) (Not Detectd) RSV (PCR) (Not Detectd) SARS-CoV-2 (PCR) (Not Detectd) 05/13/23 05/13/23 05/13/23 Range/Units 17:10 17:10 17:10 WBC (3.8-10.6) k/uL RBC (4.30-5.90) m/uL Hgb (13.0-17.5) gm/dL Hct (39.0-53.0) % MCV (80.0-100.0) fL MCH (25.0-35.0) pg MCHC (31.0-37.0) g/dL RDW (11.5-15.5) % Plt Count (150-450) k/uL MPV Neutrophils % % Lymphocytes % % Monocytes % % Eosinophils % % Basophils % % Neutrophils # (1.3-7.7) k/uL Lymphocytes # (1.0-4.8) k/uL Monocytes # (0-1.0) k/uL Eosinophils # (0-0.7) k/uL Basophils # (0-0.2) k/uL PT (9.0-12.0) sec INR (<1.2) APTT (22.0-30.0) sec Sodium 136 L (137-145) mmol/L Potassium 3.8 (3.5-5.1) mmol/L Chloride 103 (98-107) mmol/L Carbon Dioxide 24 (22-30) mmol/L Anion Gap 9 mmol/L BUN 9 (9-20) mg/dL Creatinine 0.92 (0.66-1.25) mg/dL Est GFR (CKD-EPI)AfAm >90 (>60 ml/min/1.73 sqM) Est GFR (CKD-EPI)NonAf >90 (>60 ml/min/1.73 sqM) Glucose 107 H (74-99) mg/dL Plasma Lactic Acid Jhon 1.1 (0.7-2.0) mmol/L Calcium 9.4 (8.4-10.2) mg/dL Total Bilirubin 2.1 H (0.2-1.3) mg/dL AST 32 (17-59) U/L ALT 27 (4-49) U/L Alkaline Phosphatase 80 (38-126) U/L Troponin I <0.012 (0.000-0.034) ng/mL Total Protein 7.7 (6.3-8.2) g/dL Albumin 4.6 (3.5-5.0) g/dL Urine Color Urine Appearance (Clear) Urine pH (5.0-8.0) Ur Specific [place] (1.001-1.035) Urine Protein (Negative) Urine Glucose (UA) (Negative) Urine Ketones (Negative) Urine Blood (Negative) Urine Nitrite (Negative) Urine Bilirubin (Negative) Urine Urobilinogen (<2.0) mg/dL Ur Leukocyte Esterase (Negative) Urine RBC (0-5) /hpf Urine WBC (0-5) /hpf Urine Bacteria (None) /hpf Urine Mucus (None) /hpf Influenza Type A (PCR) (Not Detectd) Influenza Type B (PCR) (Not Detectd) RSV (PCR) (Not Detectd) SARS-CoV-2 (PCR) (Not Detectd) 05/13/23 Range/Units 17:25 WBC (3.8-10.6) k/uL RBC (4.30-5.90) m/uL Hgb (13.0-17.5) gm/dL Hct (39.0-53.0) % MCV (80.0-100.0) fL MCH (25.0-35.0) pg MCHC (31.0-37.0) g/dL RDW (11.5-15.5) % Plt Count (150-450) k/uL MPV Neutrophils % % Lymphocytes % % Monocytes % % Eosinophils % % Basophils % % Neutrophils # (1.3-7.7) k/uL Lymphocytes # (1.0-4.8) k/uL Monocytes # (0-1.0) k/uL Eosinophils # (0-0.7) k/uL Basophils # (0-0.2) k/uL PT (9.0-12.0) sec INR (<1.2) APTT (22.0-30.0) sec Sodium (137-145) mmol/L Potassium (3.5-5.1) mmol/L Chloride (98-107) mmol/L Carbon Dioxide (22-30) mmol/L Anion Gap mmol/L BUN (9-20) mg/dL Creatinine (0.66-1.25) mg/dL Est GFR (CKD-EPI)AfAm (>60 ml/min/1.73 sqM) Est GFR (CKD-EPI)NonAf (>60 ml/min/1.73 sqM) Glucose (74-99) mg/dL Plasma Lactic Acid Jhon (0.7-2.0) mmol/L Calcium (8.4-10.2) mg/dL Total Bilirubin (0.2-1.3) mg/dL AST (17-59) U/L ALT (4-49) U/L Alkaline Phosphatase (38-126) U/L Troponin I (0.000-0.034) ng/mL Total Protein (6.3-8.2) g/dL Albumin (3.5-5.0) g/dL Urine Color Urine Appearance (Clear) Urine pH (5.0-8.0) Ur Specific [place] (1.001-1.035) Urine Protein (Negative) Urine Glucose (UA) (Negative) Urine Ketones (Negative) Urine Blood (Negative) Urine Nitrite (Negative) Urine Bilirubin (Negative) Urine Urobilinogen (<2.0) mg/dL Ur Leukocyte Esterase (Negative) Urine RBC (0-5) /hpf Urine WBC (0-5) /hpf Urine Bacteria (None) /hpf Urine Mucus (None) /hpf Influenza Type A (PCR) Not Detected (Not Detectd) Influenza Type B (PCR) Not Detected (Not Detectd) RSV (PCR) Not Detected (Not Detectd) SARS-CoV-2 (PCR) Not Detected (Not Detectd) Disposition Clinical Impression: Fever of unknown origin, Chest pain Disposition: ADMITTED IP TO THIS HOSP Referrals: None,Stated [REFERRING] - 1-2 days Time of Disposition: 20:41
[2023-05-13] MEDS ORDERED: LACTULOSE 20 GM/30 ML CUP PO PRN (21:38)
[2023-05-13] MEDS ORDERED: NALOXONE 0.4 MG/ML 1 ML VIAL IV PRN (21:38)
[2023-05-13] MEDS ORDERED: CALCIUM CARBONATE 500 MG CHEWABLE PO PRN (21:38)
[2023-05-13] MEDS ORDERED: ONDANSETRON 4 MG/2 ML VIAL IVP PRN (21:38)
[2023-05-13] MEDS ORDERED: WARFARIN 0.5 MG TAB PO ONE (21:45)
[2023-05-13] MEDS ORDERED: WARFARIN 5 MG TAB PO SCH (21:45)
[2023-05-13] MEDS: METOPROLOL SUCCINATE (ER) 25 MG TAB.ER.24H PO SCH (22:15)
[2023-05-13] MEDS: ACETAMINOPHEN TAB 325 MG TAB PO PRN (23:54)
[2023-05-14] MEDS ORDERED: VANCOMYCIN 1,750 MG in SODIUM CHLORIDE 0.9% 500 ML 500 ML IVPB SCH (05:00)
[2023-05-14] MEDS: ACETAMINOPHEN TAB 325 MG TAB PO PRN ×3 (05:38→17:23)
[2023-05-14] MEDS: PANTOPRAZOLE 40 MG TABLET PO SCH (05:38)
[2023-05-14] MEDS: MULTIVITAMINS, THERA 1 EACH TAB PO SCH (08:11)
[2023-05-14] MEDS: METOPROLOL SUCCINATE (ER) 25 MG TAB.ER.24H PO SCH ×2 (08:12→20:26)
[2023-05-14] MEDS: ATORVASTATIN 10 MG TAB PO SCH (08:12)
[2023-05-14] MEDS: LOSARTAN 25 MG TAB PO SCH (08:12)
[2023-05-14] MEDS: ASPIRIN 81 MG PO SCH (08:12)
[2023-05-14 09:06] LABS: INR 2.8 (<1.2); Prothrombin Time 27.3 sec (9.0-12.0)
[2023-05-14] MEDS ORDERED: GENTAMICIN PER PHARMACY MISCELLANE PRN (12:30)
[2023-05-14] MEDS: AMPICILLIN 2,000 MG in SODIUM CHLORIDE 0.9% 100 ML IVPB SCH ×3 (13:18→20:25)
--- NOTE | 2023-05-14 13:26 | P.CRDCN ---
History of Present Illness History of present illness: HISTORY OF PRESENT ILLNESS: This is a 53-year-old male with a past medical history significant for CVA, and mechanical aortic valve replacement in 2020. Patient follows with Dr. Tabor. We have been asked to see the patient in consultation for sepsis. Patient examined at the bedside. Patient states he began having fevers yesterday. He states his temperature spiked to 106F. He states that he "felt horrible" yesterday. He reports he was shivering and had generalized body aches. Patient presented to the hospital for further evaluation. Blood cultures are positive for gram- positive cocci in chains. Patient currently denies chest pain or pressure. He denies shortness of breath. The patient does give a history of CVA 2 in November 2021 and December 2021. He believes the first time was secondary to his INR being too low. He reports residual right-sided weakness and speech issues from his CVA. * EKG reveals sinus tachycardia * Chest xray negative for acute process. * Laboratory data: W BC 12.8. Hemoglobin 15.7. Platelet count 211. INR 3.8. Repeat 2.8. Sodium 136. Potassium 3.8. BUN 9. Creatinine 0.92. Troponin negative 2. * Current home cardiac medications include rosuvastatin 5 mg daily, losartan 25 mg daily, metoprolol succinate 25 mg twice a day, and warfarin 7.5 mg at night REVIEW OF SYSTEMS: At the time of my exam: CONSTITUTIONAL: Denies fever or chills. HEENT: Denies blurred vision, vision changes, or eye pain. Denies hemoptysis CARDIOVASCULAR: Denies chest pain. Denies orthopnea. Denies PND. Denies palpitations RESPIRATORY: Denies shortness of breath. GASTROINTESTINAL: Denies abdominal pain. Denies nausea or vomiting. HEMATOLOGIC: Denies bleeding disorders. GENITOURINARY: Denies any blood in urine. SKIN: Denies pruitis. Denies rash. PHYSICAL EXAM: VITAL SIGNS: Reviewed. GENERAL: Well-developed in no acute distress. HEENT: Head is normocephalic. Pupils are equal, round. Sclerae anicteric. Mucous membranes of the mouth are moist. Neck supple. No JVD or thyromegaly LUNGS: Respirations even and unlabored. Lungs essentially clear to auscultation bilaterally. HEART: Regular rate and rhythm. S1 and S2 heard. ABDOMEN: Soft. Nondistended. Nontender. EXTREMITIES: Normal range of motion. No clubbing or cyanosis. Peripheral pulses intact. No lower extremity edema NEUROLOGIC: Awake and alert. Oriented x 3. ASSESSMENT: Sepsis Bacteremia, blood cultures are positive for gram-positive cocci in chains History of mechanical aortic valve replacement, 2020 History of CVA 2021, with residual right-sided weakness and speech issues per patient Hypertension Hyperlipidemia PLAN: Resume home cardiac medications Continue warfarin. Monitor INR. Await finalization of blood cultures NPO at midnight Possible YOVANY tomorrow Further recommendations pending patient course Nurse practitioner note has been reviewed by physician. Signing provider agrees with the documented findings, assessment, and plan of care. Past Medical History Past Medical History: Coronary Artery Disease (CAD), CVA/TIA, Hypertension Additional Past Medical History / Comment(s): kidney stones; possible CHRIS- patient was seen by pulmonology in 03/2019 but didn't follow up with testing for CHRIS,was having SOB w/ exertion,is better. Recently passed Kidney stone on 02-13-21, History of Any Multi-Drug Resistant Organisms: None Reported Past Surgical History: Appendectomy, Coronary Bypass/CABG, Heart Catheterization Additional Past Surgical History / Comment(s): kidney stones procedure,YOVANY, aortic valve/ "arotic root" valve replaced on 03/04/21. Past Anesthesia/Blood Transfusion Reactions: Postoperative Nausea & Vomiting (PONV) Past Psychological History: Depression Smoking Status: Former smoker Past Alcohol Use History: None Reported Additional Past Alcohol Use History / Comment(s): quit smoking several times,finally quit Aug 2020.1/2 ppweek since teens Past Drug Use History: None Reported - Past Family History Mother Family Medical History: Cancer Additional Family Medical History / Comment(s): still alive at 78 y/o Father Family Medical History: CVA/TIA Additional Family Medical History / Comment(s): at 86 y/o Medications and Allergies Home Medications Medication Instructions Recorded Confirmed Type Aspirin 81 mg PO DAILY #0 03/10/21 05/13/23 Rx Losartan [Cozaar] 25 mg PO DAILY 04/13/21 05/13/23 History Metoprolol Succinate (ER) [Toprol 25 mg PO BID 04/13/21 05/13/23 History XL] Warfarin [Coumadin] 7.5 mg PO HS 04/13/21 05/13/23 History Multivitamins, Thera [Multivitamin 1 tab PO DAILY 05/13/23 05/13/23 History (formulary)] Pantoprazole [Protonix] 40 mg PO DAILY 05/13/23 05/13/23 History Potassium Gluconate 90mg 90 mg PO DAILY 05/13/23 05/13/23 History Rosuvastatin Calcium 5 mg PO DAILY 05/13/23 05/13/23 History Allergies Allergy/AdvReac Type Severity Reaction Status Date / Time Iodinated Contrast Media AdvReac Severe Vomiting Verified 05/13/23 18:20 Physical Exam Vitals: Vital Signs Temp Pulse Pulse Resp BP BP Pulse Ox 05/14/23 11:31 99.4 F 108 H 22 174/85 98 05/14/23 09:17 98 05/14/23 08:13 99.9 F H 05/14/23 07:56 98.9 F 93 20 140/68 97 05/14/23 06:50 100 F H 05/14/23 06:30 103.3 F H 05/14/23 06:00 103.2 F H 05/14/23 05:37 102.6 F H 05/14/23 04:45 98.6 F 05/14/23 04:00 102.7 F H 98 22 124/75 98 05/14/23 00:49 100.7 F H 05/14/23 00:16 102.5 F H 05/13/23 23:49 100.3 F H 118 H 20 137/70 98 05/13/23 22:24 98.1 F 05/13/23 21:41 104 H 22 145/85 99 05/13/23 21:38 98 05/13/23 21:27 99.1 F 99 18 133/74 99 05/13/23 19:37 95 18 135/80 97 05/13/23 19:20 98.9 F 96 18 134/75 98 05/13/23 16:30 102.9 F H 129 H 24 151/81 97 Intake and Output 05/13/23 05/14/23 05/14/23 22:59 06:59 14:59 Output Total 650 Balance -650 Output: Urine 650 Other: Weight 113.398 kg Results 05/13/23 17:10 05/13/23 17:10 Cardiac Enzymes 05/13/23 05/13/23 05/13/23 Range/Units 17:10 17:10 23:21 AST 32 (17-59) U/L Troponin I <0.012 <0.012 (0.000-0.034) ng/mL Coagulation 05/13/23 05/14/23 Range/Units 17:10 07:55 PT 37.2 H 27.3 H (9.0-12.0) sec APTT 43.8 H (22.0-30.0) sec CBC 05/13/23 Range/Units 17:10 WBC 12.8 H (3.8-10.6) k/uL RBC 5.50 (4.30-5.90) m/uL Hgb 15.7 (13.0-17.5) gm/dL Hct 45.2 (39.0-53.0) % Plt Count 211 (150-450) k/uL Comprehensive Metabolic Panel 05/13/23 Range/Units 17:10 Sodium 136 L (137-145) mmol/L Potassium 3.8 (3.5-5.1) mmol/L Chloride 103 (98-107) mmol/L Carbon Dioxide 24 (22-30) mmol/L BUN 9 (9-20) mg/dL Creatinine 0.92 (0.66-1.25) mg/dL Glucose 107 H (74-99) mg/dL Calcium 9.4 (8.4-10.2) mg/dL AST 32 (17-59) U/L ALT 27 (4-49) U/L Alkaline Phosphatase 80 (38-126) U/L Total Protein 7.7 (6.3-8.2) g/dL Albumin 4.6 (3.5-5.0) g/dL Current Medications Generic Name Dose Route Start Last Admin Trade Name Freq PRN Reason Stop Dose Admin Acetaminophen 650 mg 05/13/23 21:38 05/14/23 11:29 Acetaminophen Tab 325 Mg Tab PO 650 mg Q6HR PRN Administration Mild Pain or Fever > 100.5 Alprazolam 0.25 mg 05/13/23 21:38 Alprazolam 0.25 Mg Tab PO Q6HR PRN Anxiety Aspirin 81 mg 05/14/23 09:00 05/14/23 08:12 Aspirin 81 Mg PO 81 mg DAILY SWATI Administration Atorvastatin Calcium 10 mg 05/14/23 09:00 05/14/23 08:12 Atorvastatin 10 Mg Tab PO 10 mg DAILY SWATI Administration Calcium Carbonate/Glycine 1,000 mg 05/13/23 21:38 Calcium Carbonate 500 Mg Chewable PO Q4HR PRN Dyspepsia Vancomycin HCl 1,750 mg/ 500 mls @ 167 mls/hr 05/14/23 05:00 05/14/23 07:03 Sodium Chloride IVPB 167 mls/hr Q8H SWATI Administration Lactulose 20 gm 05/13/23 21:38 Lactulose 20 Gm/30 Ml Cup PO DAILY PRN Constipation Losartan Potassium 25 mg 05/14/23 09:00 05/14/23 08:12 Losartan 25 Mg Tab PO 25 mg DAILY SWATI Administration Melatonin 3 mg 05/13/23 21:38 Melatonin 3 Mg Tablet PO HS PRN Insomnia Metoprolol Succinate 25 mg 05/13/23 21:45 05/14/23 08:12 Metoprolol Succinate (Er) 25 Mg Tab.Er.24h PO 25 mg BID SWATI Administration Miscellaneous Information 0 each 05/13/23 21:39 Warfarin Per Pharmacy MISCELLANE DIRECTED PRN PER PROTOCOL Miscellaneous Information 1 each 05/15/23 04:00 Vancomycin Trough Due 1 Each Misc MISCELLANE 05/15/23 04:01 ONCE ONE Multivitamins 1 each 05/14/23 09:00 05/14/23 08:11 Multivitamins, Thera 1 Each Tab PO 1 each DAILY SWATI Administration Naloxone HCl 0.2 mg 05/13/23 21:38 Naloxone 0.4 Mg/Ml 1 Ml Vial IV Q2M PRN Opioid Reversal Ondansetron HCl 4 mg 05/13/23 21:38 05/13/23 22:15 Ondansetron 4 Mg/2 Ml Vial IVP 4 mg Q8HR PRN Administration Nausea And Vomiting Pantoprazole Sodium 40 mg 05/14/23 07:30 05/14/23 05:38 Pantoprazole 40 Mg Tablet PO 40 mg [id number] SWATI Administration Warfarin Sodium 9 mg 05/14/23 18:00 Warfarin 3 Mg Tab PO 05/14/23 18:01 ONCE@1800 ONE Intake and Output 05/13/23 05/14/23 05/14/23 22:59 06:59 14:59 Output Total 650 Balance -650 Output: Urine 650 Other: Weight 113.398 kg 05/13/23 17:10 05/13/23 17:10
[2023-05-14] MEDS: GENTAMICIN 100 MG in SODIUM CHLORIDE 0.9% 100 ML IVPB SCH ×2 (14:11→21:29)
--- NOTE | 2023-05-14 17:32 | P.HPIM ---
History of Present Illness H&P Date: 05/14/23 Chief Complaint: Feeling unwell This is a very pleasant 53-year-old patient follows with Dr. Shannon. Chronic stable medical conditions include hypertension, hyperlipidemia, cardiomyopathy EF of about 30-35%. 4 unicuspid aortic valve with severe aortic regurgitation. 03/04/21 underwent aortic valve replacement with a mechanical valve by Dr. Heaton. Cardiac catheterization - normal coronaries. Patient follows with Dr. Lezama note of Aysha Mason. Patient is doing well up to yesterday afternoon. Started feeling unwell. Chills. Decreased appetite. Some shortness of breath. Tired rundown. Given the ER. Started spiking fevers. Was given IV ceftriaxone and vancomycin the ER. ID was consulted. On night patient continued to spike fever. Denies any cough. No chest pain. No urinary symptoms. Chills and rigors. Accompanied by his at the bedside. Patient had 1 episode of diarrhea yesterday. No abdominal pain. Review of systems: GEN.: Fever and chills EYES: None HEENT: None NECK: None RESPIRATORY: Some shortness of breath CARDIOVASCULAR: None GASTROINTESTINAL: None GENITOURINARY: None MUSCULOSKELETAL: None LYMPHATICS: None HEMATOLOGICAL: None PSYCHIATRY: None NEUROLOGICAL: None Past medical history to include: Unicuspid aortic valve and severe AR leading to Mechanical aortic valve on February 2021 on Coumadin, hypertension, hyperlipidemia, normal cardiac catheterization, EF 30-35% Social history: No alcohol. stopped smoking in August 2020. Breathing about half a pack per week. 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 . Physical examination: VITAL SIGNS: 102.9, 129, 24, 151/81, 97% room air upon presentation GENERAL: BMI 31.2 laying in bed, tired EYES: Pupils equal. Conjunctiva normal. HEENT: External appearance of nose and ears normal, oral cavity grossly normal. NECK: JVD not raised; masses not palpable. HEART: Mechanical heart sound; no edema. LUNGS: Respiratory rate increased; clear to auscultation. ABDOMEN: Soft, nontender, liver spleen not palpable, no masses palpable. PSYCH: Alert and oriented x3; mood and affect tired NEUROLOGICAL: Cranial nerves grossly intact; no facial asymmetry, power and se nsation grossly intact. LYMPHATICS: No lymph nodes palpable in the axilla and neck INVESTIGATIONS, reviewed in the clinical context: Blood culture [May 13]: Gram-positive cocci in chains EKG tracing personally reviewed by me-sinus tachycardia. Rate 121. Some ST segment depression. May 13: White count 12.8 hemoglobin 15.7 platelets 211 INR 3.8 potassium 3.8 creatinine 0.92 Troponin I less than 0.012 UA: Negative for nitrite and leukoesterase Influenza type A, B, RSV, COVID-19: Not detected Chest x-ray film personally reviewed by me-no obvious infiltrate Assessment and plan: -Severe sepsis. Obvious concern for infected mechanical valve. - acute infective endocolitis of the mechanical valve. Blood cultures positive for gram-positive cocci in chains. Antibiotics now being changed over to IV ampicillin and IV gentamicin. ID and cardiology consulted. -Mechanical aortic valve on 03/04/2021, for unicuspid aortic valve and severe aortic regurgitation by Dr. Heaton. Continue with Coumadin. -Coumadin monitoring Pharmacy to dose -Chronic insomnia for medical condition -Hyperlipidemia Rosuvastatin -Chronic nonischemic cardiomyopathy from aortic valve disorder, EF 30-35% -Essential hypertension Toprol-XL 25 mg twice a day, Cozaar 25 mg a day Care was discussed with ID, patient at the bedside. Questions answered. Past Medical History Past Medical History: Coronary Artery Disease (CAD), CVA/TIA, Hypertension Additional Past Medical History / Comment(s): kidney stones; possible CHRIS-patien t was seen by pulmonology in 03/2019 but didn't follow up with testing for CHRIS,was having SOB w/ exertion,is better. Recently passed Kidney stone on 02-13-21, History of Any Multi-Drug Resistant Organisms: None Reported Past Surgical History: Appendectomy, Coronary Bypass/CABG, Heart Catheterization Additional Past Surgical History / Comment(s): kidney stones procedure,YOVANY, aortic valve/ "arotic root" valve replaced on 03/04/21. Past Anesthesia/Blood Transfusion Reactions: Postoperative Nausea & Vomiting (PONV) Past Psychological History: Depression Smoking Status: Former smoker Past Alcohol Use History: None Reported Additional Past Alcohol Use History / Comment(s): quit smoking several times,f inally quit Aug 2020.1/2 ppweek since teens Past Drug Use History: None Reported - Past Family History Mother Family Medical History: Cancer Additional Family Medical History / Comment(s): still alive at 78 y/o Father Family Medical History: CVA/TIA Additional Family Medical History / Comment(s): at 86 y/o Medications and Allergies Home Medications Medication Instructions Recorded Confirmed Type Aspirin 81 mg PO DAILY #0 03/10/21 05/13/23 Rx Losartan [Cozaar] 25 mg PO DAILY 04/13/21 05/13/23 History Metoprolol Succinate (ER) [Toprol 25 mg PO BID 04/13/21 05/13/23 History XL] Warfarin [Coumadin] 7.5 mg PO HS 04/13/21 05/13/23 History Multivitamins, Thera [Multivitamin 1 tab PO DAILY 05/13/23 05/13/23 History (formulary)] Pantoprazole [Protonix] 40 mg PO DAILY 05/13/23 05/13/23 History Potassium Gluconate 90mg 90 mg PO DAILY 05/13/23 05/13/23 History Rosuvastatin Calcium 5 mg PO DAILY 05/13/23 05/13/23 History Allergies Allergy/AdvReac Type Severity Reaction Status Date / Time Iodinated Contrast Media AdvReac Severe Vomiting Verified 05/13/23 18:20 Physical Exam Vitals: Vital Signs Temp Pulse Pulse Resp BP BP Pulse Ox 05/14/23 09:17 98 05/14/23 08:13 99.9 F H 05/14/23 07:56 98.9 F 93 20 140/68 97 05/14/23 06:50 100 F H 05/14/23 06:30 103.3 F H 05/14/23 06:00 103.2 F H 05/14/23 05:37 102.6 F H 05/14/23 04:45 98.6 F 05/14/23 04:00 102.7 F H 98 22 124/75 98 05/14/23 00:49 100.7 F H 05/14/23 00:16 102.5 F H 05/13/23 23:49 100.3 F H 118 H 20 137/70 98 05/13/23 22:24 98.1 F 05/13/23 21:41 104 H 22 145/85 99 05/13/23 21:38 98 05/13/23 21:27 99.1 F 99 18 133/74 99 05/13/23 19:37 95 18 135/80 97 05/13/23 19:20 98.9 F 96 18 134/75 98 05/13/23 16:30 102.9 F H 129 H 24 151/81 97 Intake and Output 05/13/23 05/14/23 05/14/23 22:59 06:59 14:59 Output Total 650 Balance -650 Output: Urine 650 Other: Weight 113.398 kg Results CBC & Chem 7: 05/13/23 17:10 05/13/23 17:10 Labs: Abnormal Lab Results - Last 24 Hours (Table) 05/13/23 05/13/23 05/13/23 Range/Units 17:10 17:10 17:10 WBC 12.8 H (3.8-10.6) k/uL Neutrophils # 11.3 H (1.3-7.7) k/uL Lymphocytes # 0.8 L (1.0-4.8) k/uL PT 37.2 H (9.0-12.0) sec INR 3.8 H (<1.2) APTT 43.8 H (22.0-30.0) sec Sodium (137-145) mmol/L Glucose (74-99) mg/dL Total Bilirubin (0.2-1.3) mg/dL Urine Ketones Trace H (Negative) Urine Blood Trace H (Negative) Urine Bacteria Rare H (None) /hpf Urine Mucus Rare H (None) /hpf 05/13/23 05/14/23 Range/Units 17:10 07:55 WBC (3.8-10.6) k/uL Neutrophils # (1.3-7.7) k/uL Lymphocytes # (1.0-4.8) k/uL PT 27.3 H (9.0-12.0) sec INR 2.8 H (<1.2) APTT (22.0-30.0) sec Sodium 136 L (137-145) mmol/L Glucose 107 H (74-99) mg/dL Total Bilirubin 2.1 H (0.2-1.3) mg/dL Urine Ketones (Negative) Urine Blood (Negative) Urine Bacteria (None) /hpf Urine Mucus (None) /hpf Thrombosis Risk Factor Assmnt - Choose All That Apply Any of the Below Risk Factors Present?: Yes Each Factor Represents 1 point: Heart failure (<1month) Other Risk Factors: No Other congenital or acquired thrombophilia - If yes, enter type in comment: No Thrombosis Risk Factor Assessment Total Risk Factor Score: 1 Thrombosis Risk Factor Assessment Level: Low Risk
[2023-05-14] MEDS ORDERED: WARFARIN 7.5 MG TAB PO ONE (18:00)
[2023-05-14] MEDS ORDERED: WARFARIN 3 MG TAB PO ONE (18:00)
[2023-05-14] MEDS: SODIUM CHLORIDE 0.9% 1,000 ML IV SCH (18:03)
[2023-05-14] MEDS ORDERED: IBUPROFEN 600 MG TAB PO STA (18:14)
[2023-05-14] MEDS ORDERED: BACLOFEN 10 MG TAB PO PRN (19:27)
[2023-05-14] MEDS: MELATONIN 3 MG TABLET PO PRN (20:25)
[2023-05-14] MEDS: FAMOTIDINE 20 MG TAB PO SCH (20:26)
--- NOTE | 2023-05-14 22:21 | P.CONS ---
History of Present Illness - Reason for Consult Consult date: 05/14/23 - History of Present Illness Patient is a 53-year-old male with a past medical history significant for hypertension depression CVA TIA did have a aortic valve replacement with mechanical valve on 03/04/2021 patient now presenting to [facility] ER for evaluation of shortness of breath headache not feeling well and a fever patient mentions symptom has been going on for about a day before presentation to the hospital has been complaining of generalized weakness not feeling well shortness of breath some mild chest pain denies cough or sputum production some nausea but no vomiting no abdominal pain no diarrhea no urinary symptoms no however the patient does give a symptoms of hematuria and passage of a renal stone about 2 weeks ago for the patient did not seek any medical attention, patient on presentation to the hospital did spike a fever of 102.9 degrees for night with a fever of 103.3 this morning patient was tachycardic however not hypotensive or hypoxic and did have white count 12.8 kidney function was normal limits of the normal urine was negative influenza RSV and COVID testing was negative patient did have a chest x-ray no acute disease identified patient was empirically started on vancomycin and infectious disease was consulted for further management of antibiotic therapy, the patient blood cultures are coming back positive with Enterococcus faecalis with no resistant gene and per discussion with the pharmacist Past Medical History Past Medical History: Coronary Artery Disease (CAD), CVA/TIA, Hypertension Additional Past Medical History / Comment(s): kidney stones; possible CHRIS- patient was seen by pulmonology in 03/2019 but didn't follow up with testing for CHRIS,was having SOB w/ exertion,is better. Recently passed Kidney stone on 02-13-21, History of Any Multi-Drug Resistant Organisms: None Reported Past Surgical History: Appendectomy, Coronary Bypass/CABG, Heart Catheterization Additional Past Surgical History / Comment(s): kidney stones procedure,YVOANY, aortic valve/ "arotic root" valve replaced on 03/04/21. Past Anesthesia/Blood Transfusion Reactions: Postoperative Nausea & Vomiting (PONV) Past Psychological History: Depression Smoking Status: Former smoker Past Alcohol Use History: None Reported Additional Past Alcohol Use History / Comment(s): quit smoking several times,finally quit Aug 2020.1/2 ppweek since teens Past Drug Use History: None Reported - Past Family History Mother Family Medical History: Cancer Additional Family Medical History / Comment(s): still alive at 78 y/o Father Family Medical History: CVA/TIA Additional Family Medical History / Comment(s): at 86 y/o Medications and Allergies Home Medications Medication Instructions Recorded Confirmed Type Aspirin 81 mg PO DAILY #0 03/10/21 05/13/23 Rx Losartan [Cozaar] 25 mg PO DAILY 04/13/21 05/13/23 History Metoprolol Succinate (ER) [Toprol 25 mg PO BID 04/13/21 05/13/23 History XL] Warfarin [Coumadin] 7.5 mg PO HS 04/13/21 05/13/23 History Multivitamins, Thera [Multivitamin 1 tab PO DAILY 05/13/23 05/13/23 History (formulary)] Pantoprazole [Protonix] 40 mg PO DAILY 05/13/23 05/13/23 History Potassium Gluconate 90mg 90 mg PO DAILY 05/13/23 05/13/23 History Rosuvastatin Calcium 5 mg PO DAILY 05/13/23 05/13/23 History Allergies Allergy/AdvReac Type Severity Reaction Status Date / Time Iodinated Contrast Media AdvReac Severe Vomiting Verified 05/13/23 18:20 Physical Exam Vitals: Vital Signs Temp Pulse Pulse Resp BP BP Pulse Ox 05/14/23 09:17 98 05/14/23 08:13 99.9 F H 05/14/23 07:56 98.9 F 93 20 140/68 97 05/14/23 06:50 100 F H 05/14/23 06:30 103.3 F H 05/14/23 06:00 103.2 F H 05/14/23 05:37 102.6 F H 05/14/23 04:45 98.6 F 05/14/23 04:00 102.7 F H 98 22 124/75 98 05/14/23 00:49 100.7 F H 05/14/23 00:16 102.5 F H 05/13/23 23:49 100.3 F H 118 H 20 137/70 98 05/13/23 22:24 98.1 F 05/13/23 21:41 104 H 22 145/85 99 05/13/23 21:38 98 05/13/23 21:27 99.1 F 99 18 133/74 99 05/13/23 19:37 95 18 135/80 97 05/13/23 19:20 98.9 F 96 18 134/75 98 05/13/23 16:30 102.9 F H 129 H 24 151/81 97 Intake and Output 05/13/23 05/14/23 05/14/23 22:59 06:59 14:59 Output Total 650 Balance -650 Output: Urine 650 Other: Weight 113.398 kg Results CBC & Chem 7: 05/13/23 17:10 05/13/23 17:10 Labs: Abnormal Lab Results - Last 24 Hours (Table) 05/13/23 05/13/23 05/13/23 Range/Units 17:10 17:10 17:10 WBC 12.8 H (3.8-10.6) k/uL Neutrophils # 11.3 H (1.3-7.7) k/uL Lymphocytes # 0.8 L (1.0-4.8) k/uL PT 37.2 H (9.0-12.0) sec INR 3.8 H (<1.2) APTT 43.8 H (22.0-30.0) sec Sodium (137-145) mmol/L Glucose (74-99) mg/dL Total Bilirubin (0.2-1.3) mg/dL Urine Ketones Trace H (Negative) Urine Blood Trace H (Negative) Urine Bacteria Rare H (None) /hpf Urine Mucus Rare H (None) /hpf 05/13/23 05/14/23 Range/Units 17:10 07:55 WBC (3.8-10.6) k/uL Neutrophils # (1.3-7.7) k/uL Lymphocytes # (1.0-4.8) k/uL PT 27.3 H (9.0-12.0) sec INR 2.8 H (<1.2) APTT (22.0-30.0) sec Sodium 136 L (137-145) mmol/L Glucose 107 H (74-99) mg/dL Total Bilirubin 2.1 H (0.2-1.3) mg/dL Urine Ketones (Negative) Urine Blood (Negative) Urine Bacteria (None) /hpf Urine Mucus (None) /hpf Assessment and Plan Plan: 1patient was in the hospital with sepsis in this patient with a fever tachycardia elevated white count now with evidence of Enterococcus faecalis bacteremia source 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 2Enterococcus faecalis bacteremia source likely endocarditis and the patient abdominal soft rectal examination and UA is negative. 3discontinue vancomycin. 4we will start the patient on ampicillin 2 g every 4 along with gentamicin for synergistic. 5blood culture to be repeated daily to document clearance of bacteremia. 6the patient benefit from echocardiogram versus YOVANY for better definition of his prostatic valve for which cardiology has been consulted. We will follow on clinical condition and cultures to further adjust medication if needed Thank you for this consultation we will follow the patient along with you Dictation was produced using [employer] dictation software. please excuse any grammatical, word or spelling errors. Time with Patient: Greater than 30
[2023-05-15] MEDS: AMPICILLIN 2,000 MG in SODIUM CHLORIDE 0.9% 100 ML IVPB SCH ×6 (00:42→20:51)
[2023-05-15] MEDS ORDERED: VANCOMYCIN TROUGH DUE 1 EACH MISC MISCELLANE ONE (04:00)
[2023-05-15 04:42] LABS: African American GFR (CKD) >90 (>60 ml/min/1.73 sqM); Anion Gap 6 mmol/L; Blood Urea Nitrogen 13 mg/dL (9-20); Calcium 8.6 mg/dL (8.4-10.2); Carbon Dioxide 25 mmol/L (22-30); Chloride 106 mmol/L (98-107); Glucose 96 mg/dL (74-99); Non-African American GFR(CKD) >90 (>60 ml/min/1.73 sqM); Potassium 3.7 mmol/L (3.5-5.1); Sodium 137 mmol/L (137-145)
[2023-05-15 05:08] LABS: C Reactive Protein 16.4 mg/dL (<1.0)
[2023-05-15] MEDS: GENTAMICIN 100 MG in SODIUM CHLORIDE 0.9% 100 ML IVPB SCH ×3 (05:25→22:46)
[2023-05-15] MEDS: PANTOPRAZOLE 40 MG TABLET PO SCH (05:25)
[2023-05-15] MEDS: ACETAMINOPHEN TAB 325 MG TAB PO PRN ×4 (05:25→22:56)
[2023-05-15] MEDS: METOPROLOL SUCCINATE (ER) 25 MG TAB.ER.24H PO SCH ×2 (08:17→20:51)
[2023-05-15] MEDS: LOSARTAN 25 MG TAB PO SCH (08:17)
[2023-05-15] MEDS: MULTIVITAMINS, THERA 1 EACH TAB PO SCH (08:17)
[2023-05-15] MEDS: FAMOTIDINE 20 MG TAB PO SCH ×2 (08:17→20:51)
[2023-05-15] MEDS: ASPIRIN 81 MG PO SCH (08:17)
[2023-05-15] MEDS: ATORVASTATIN 10 MG TAB PO SCH (08:17)
[2023-05-15 09:11] LABS: Basophils % (A) 0 %; Eosinophils # (A) 0.1 k/uL (0-0.7); Eosinophils % (A) 1 %; HCT 37.8 % (39.0-53.0); HGB 13.5 gm/dL (13.0-17.5); Lymphocytes % (A) 12 %; MCH 29.7 pg (25.0-35.0); MCHC 35.7 g/dL (31.0-37.0); Mean Platelet Volume 7.7; Monocytes # (A) 0.6 k/uL (0-1.0); Monocytes % (A) 7 %; Neutrophils # (A) 6.9 k/uL (1.3-7.7); Neutrophils % (A) 78 %; Platelet Count 146 k/uL (150-450); RBC 4.56 m/uL (4.30-5.90); RDW 13.9 % (11.5-15.5); WBC 8.8 k/uL (3.8-10.6)
[2023-05-15 09:26] LABS: INR 2.2 (<1.2); Prothrombin Time 21.8 sec (9.0-12.0)
[2023-05-15 11:33] LABS: Erythrocyte Sedimentation Rate 26 mm/hr (0-15)
[2023-05-15] MEDS: SODIUM CHLORIDE 0.9% 1,000 ML IV SCH (12:08)
--- NOTE | 2023-05-15 12:58 | CA ---
Transthoracic Echo Report Name: Bogdan Aguirre Age: 53 Gender: M : 1970 Exam Date: 05/14/2023 10:00 Exam Location: [facility] Ht (in): 75 Wt (lb): 250 Ordering Physician: Sagar oMrse MD Attending/Referring Phys: Networking Administrator Carlitos Martin Procedure CPT: Indications: Endocarditis Cardiac Hx: Technical Quality: Technically difficult study Contrast 1: Lumason Total Dose (mL): 5 Contrast 2: Total Dose (mL): MEASUREMENTS (Male / Female) Normal Values 2D ECHO LV Diastolic Diameter PLAX 4.3 cm 4.2 - 5.9 / 3.9 - 5.3 cm LV Systolic Diameter PLAX 3.2 cm IVS Diastolic Thickness 1.6 cm 0.6 - 1.0 / 0.6 - 0.9 cm LVPW Diastolic Thickness 1.3 cm 0.6 - 1.0 / 0.6 - 0.9 cm LV Relative Wall Thickness 0.7 RV Internal Dim ED PLAX 2.9 cm LVOT Diameter 2.9 cm Aortic Root Diameter 3.7 cm LV Diastolic Volume MOD 4C 122.6 cm??? LV Systolic Volume MOD 4C 66.0 cm??? LV Ejection Fraction MOD 4C 46.1 % LV Cardiac Index MOD 4C 1712.0 cm???/min???m??? LV Diastolic Length 4C 9.3 cm LV Systolic Length 4C 7.9 cm Ascending Aorta Diameter 3.5 cm DOPPLER AV Peak Velocity 183.3 cm/s AV Peak Gradient 13.4 mmHg AV Mean Velocity 120.9 cm/s AV Mean Gradient 6.9 mmHg AV Velocity Time Integral 30.9 cm LVOT Peak Velocity 106.4 cm/s LVOT Peak Gradient 4.5 mmHg LVOT Velocity Time Integral 22.5 cm LVOT Stroke Volume 152.8 cm??? LVOT Stroke Volume Index 63.3 ml/m??? LVOT Cardiac Index 4627.9 cm???/min???m??? AV Area Cont Eq vti 4.9 cm??? AV Area Cont Eq pk 3.9 cm??? MV Peak Velocity 113.9 cm/s MV Peak Gradient 5.2 mmHg MV Mean Velocity 51.6 cm/s MV Mean Gradient 1.4 mmHg MV Velocity Time Integral 33.2 cm MR Peak Velocity 183.6 cm/s MR Peak Gradient 13.5 mmHg Mitral E Point Velocity 101.1 cm/s Mitral A Point Velocity 59.5 cm/s Mitral E to A Ratio 1.7 MV Deceleration Time 153.1 ms MV E' Velocity 9.0 cm/s Mitral E to MV E' Ratio 11.2 TR Peak Velocity 132.1 cm/s TR Peak Gradient 7.0 mmHg Right Ventricular Systolic Press 12.0 mmHg PV Peak Velocity 126.7 cm/s PV Peak Gradient 6.4 mmHg FINDINGS Left Ventricle Moderately increased septal wall thickness. Normal LV size. Left ventricular ejection fraction is estimated at 50-55 %. No obvious regional wall motion abnormality Right Ventricle Not well visualized Right Atrium Not well visualized Left Atrium Normal left atrial size. Mitral Valve Mitral valve not well visualized. Aortic Valve Bioprosthetic aortic valve, appears to be functioning normally. No evidence of stenosis or regurgitation. No evidence of paravalvular leak Tricuspid Valve Tricuspid valve not well visualized. Mild TR. Pulmonic Valve Pulmonic valve not well visualized. No pulmonic regurgitation. Pericardium Grossly normal. Aorta Normal size aortic root CONCLUSIONS Technically very difficult with limited visualization. Moderate concentric LVH LVEF estimated at 55% No obvious regional wall motion abnormality Bioprosthetic aortic valve which appears to be functioning normally. No prior echocardiogram to compare within database Previewed by: Dr Varinder Schumacher (Electronically Signed) Final Date: 15 May 2023 12:57
[2023-05-15] MEDS ORDERED: GENTAMICIN TROUGH DUE 1 EACH MISC MISCELLANE ONE (13:00)
--- NOTE | 2023-05-15 14:36 | P.PN ---
Subjective HISTORY OF PRESENT ILLNESS: This is a 53-year-old male with a past medical history significant for CVA, and mechanical aortic valve replacement in 2020. Patient follows with Dr. Tabor. We have been asked to see the patient in consultation for sepsis. Patient examined at the bedside. Patient states he began having fevers yesterday. He states his temperature spiked to 106F. He states that he "felt horrible" yesterday. He reports he was shivering and had generalized body aches. Patient presented to the hospital for further evaluation. Blood cultures are positive for gram- positive cocci in chains. Patient currently denies chest pain or pressure. He denies shortness of breath. The patient does give a history of CVA 2 in November 2021 and December 2021. He believes the first time was secondary to his INR being too low. He reports residual right-sided weakness and speech issues from his CVA. * EKG reveals sinus tachycardia * Chest xray negative for acute process. * Laboratory data: W BC 12.8. Hemoglobin 15.7. Platelet count 211. INR 3.8. Repeat 2.8. Sodium 136. Potassium 3.8. BUN 9. Creatinine 0.92. Troponin negative 2. * Current home cardiac medications include rosuvastatin 5 mg daily, losartan 25 mg daily, metoprolol succinate 25 mg twice a day, and warfarin 7.5 mg at night 05/15 Patient is seen and examined. Patient denies any chest pain or pressure. Blood cultures have grown out enterococcus. Infectious disease concern of possible endocarditis. Transthoracic echo does not show any significant vegetation. He does have a headache and not much of an appetite today. PHYSICAL EXAM: VITAL SIGNS: Reviewed. GENERAL: Well-developed in no acute distress. HEENT: Head is normocephalic. Pupils are equal, round. Sclerae anicteric. Mucous membranes of the mouth are moist. Neck supple. No JVD or thyromegaly LUNGS: Respirations even and unlabored. Lungs essentially clear to auscultation bilaterally. HEART: Regular rate and rhythm. S1 and S2 heard. ABDOMEN: Soft. Nondistended. Nontender. EXTREMITIES: Normal range of motion. No clubbing or cyanosis. Peripheral pulses intact. No lower extremity edema NEUROLOGIC: Awake and alert. Oriented x 3. ASSESSMENT: Sepsis Bacteremia, blood cultures are positive for enterococous History of mechanical aortic valve replacement, 2020 History of CVA 2021, with residual right-sided weakness and speech issues per patient Hypertension Hyperlipidemia PLAN: Continue with Coumadin Transthoracic echo without any significant vegetation however higher index of suspicion and therefore discussed YOVANY to be performed tomorrow. Objective - Vital Signs Vital signs: Vital Signs Temp 100.3 F H 05/15/23 12:00 Pulse 74 05/15/23 12:00 Resp 18 05/15/23 12:00 BP 154/82 05/15/23 12:00 Pulse Ox 96 05/15/23 12:00 FiO2 Intake & Output 05/14/23 05/15/23 05/15/23 18:59 06:59 18:59 Output Total 850 680 650 Balance -850 680 -650 Output: Urine 850 680 650 Other: Voiding Method Urinal # Voids 1 - Labs CBC & Chem 7: 05/15/23 08:52 05/15/23 03:55 Labs: Abnormal Lab Results - Last 24 Hours (Table) 05/15/23 05/15/23 05/15/23 Range/Units 03:55 08:52 08:52 Hct 37.8 L (39.0-53.0) % Plt Count 146 L (150-450) k/uL ESR 26 H (0-15) mm/hr PT 21.8 H (9.0-12.0) sec INR 2.2 H (<1.2) C-Reactive Protein 16.4 H (<1.0) mg/dL Microbiology - Last 24 Hours (Table) 05/13/23 17:10 Blood Culture Gram Stain - Preliminary Blood Blood Culture - Preliminary Group D Enterococcus 05/13/23 17:25 Blood Culture Gram Stain - Preliminary Blood Blood Culture - Preliminary Group D Enterococcus
--- NOTE | 2023-05-15 14:43 | P.PN ---
Progress Note - Text Progress Note Date: 05/15/23 Chief Complaint: Feeling unwell This is a very pleasant 53-year-old patient follows with Dr. Shannon. Chronic stable medical conditions include hypertension, hyperlipidemia, cardiomyopathy EF of about 30-35%. 4 unicuspid aortic valve with severe aortic regurgitation. 03/04/21 underwent aortic valve replacement with a mechanical valve by Dr. Heaton. Cardiac catheterization - normal coronaries. Patient follows with Dr. Lezama note of Aysha Mason. Patient is doing well up to yesterday afternoon. Started feeling unwell. Chills. Decreased appetite. Some shortness of breath. Tired rundown. Given the ER. Started spiking fevers. Was given IV ceftriaxone and vancomycin the ER. ID was consulted. On night patient continued to spike fever. Denies any cough. No chest pain. No urinary symptoms. Chills and rigors. Accompanied by his at the bedside. Patient had 1 episode of diarrhea yesterday. No abdominal pain. May 15: Seen this morning. at the bedside. Weak tired. No fever since yesterday evening. Headache. Per cardiology for YOVANY tomorrow. On IV ampicillin and gentamicin. Blood cultures growing group D enterococcus. Repeat blood cultures ordered. Active Medications Acetaminophen (Acetaminophen Tab 325 Mg Tab) 650 mg PO Q6HR PRN PRN Reason: Mild Pain or Fever > 100.5 Last Admin: 05/15/23 10:43 Dose: 650 mg Alprazolam (Alprazolam 0.25 Mg Tab) 0.25 mg PO Q6HR PRN PRN Reason: Anxiety Aspirin (Aspirin 81 Mg) 81 mg PO DAILY [facility] Last Admin: 05/15/23 08:17 Dose: 81 mg Atorvastatin Calcium (Atorvastatin 10 Mg Tab) 10 mg PO DAILY [facility] Last Admin: 05/15/23 08:17 Dose: 10 mg Baclofen (Baclofen 10 Mg Tab) 5 mg PO TID PRN PRN Reason: Muscle Spasm Calcium Carbonate/Glycine (Calcium Carbonate 500 Mg Chewable) 1,000 mg PO Q4HR PRN PRN Reason: Dyspepsia Famotidine (Famotidine 20 Mg Tab) 20 mg PO BID [facility] Last Admin: 05/15/23 08:17 Dose: 20 mg Ampicillin Sodium 2,000 mg/ (Sodium Chloride) 100 mls @ 200 mls/hr IVPB Q4HR [facility]; Protocol Last Admin: 05/15/23 12:08 Dose: 200 mls/hr Gentamicin Sulfate 100 mg/ (Sodium Chloride) 102.5 mls @ 102.5 mls/hr IVPB Q8H [facility] Last Admin: 05/15/23 14:01 Dose: 102.5 mls/hr Sodium Chloride (Saline 0.9%) 1,000 mls @ 50 mls/hr IV .Q20H [facility] Last Admin: 05/15/23 12:08 Dose: Not Given Lactulose (Lactulose 20 Gm/30 Ml Cup) 20 gm PO DAILY PRN PRN Reason: Constipation Losartan Potassium (Losartan 25 Mg Tab) 25 mg PO DAILY [facility] Last Admin: 05/15/23 08:17 Dose: 25 mg Melatonin (Melatonin 3 Mg Tablet) 3 mg PO HS PRN PRN Reason: Insomnia Last Admin: 05/14/23 20:25 Dose: 3 mg Metoprolol Succinate (Metoprolol Succinate (Er) 25 Mg Tab.Er.24h) 25 mg PO BID [facility] Last Admin: 05/15/23 08:17 Dose: 25 mg Miscellaneous Information (Warfarin Per Pharmacy) 0 each MISCELLANE DIRECTED PRN PRN Reason: PER PROTOCOL Miscellaneous Information (Gentamicin Peak Due 1 Each Misc) 0 each MISCELLANE DIRECTED ONE Stop: 05/15/23 16:01 Multivitamins (Multivitamins, Thera 1 Each Tab) 1 each PO DAILY [facility] Last Admin: 05/15/23 08:17 Dose: 1 each Naloxone HCl (Naloxone 0.4 Mg/Ml 1 Ml Vial) 0.2 mg IV Q2M PRN PRN Reason: Opioid Reversal Ondansetron HCl (Ondansetron 4 Mg/2 Ml Vial) 4 mg IVP Q8HR PRN PRN Reason: Nausea And Vomiting Last Admin: 05/13/23 22:15 Dose: 4 mg Pantoprazole Sodium (Pantoprazole 40 Mg Tablet) 40 mg PO AC-BRKFST [facility] Last Admin: 05/15/23 05:25 Dose: 40 mg Warfarin Sodium (Warfarin 7.5 Mg Tab) 7.5 mg PO ONCE@1800 [facility]; Protocol Stop: 05/15/23 18:01 Past medical history to include: Unicuspid aortic valve and severe AR leading to Mechanical aortic valve on February 2021 on Coumadin, hypertension, hyperlipidemia, normal cardiac catheterization, EF 30-35% Social history: No alcohol. stopped smoking in August 2020. Breathing about half a pack per week. 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 . Physical examination: VITAL SIGNS: 99.4, 78, 18, 142/79, 97% room air GENERAL: BMI 31.2 laying in bed, tired EYES: Pupils equal. Conjunctiva normal. HEENT: External appearance of nose and ears normal, oral cavity grossly normal. NECK: JVD not raised; masses not palpable. HEART: Mechanical heart sound; no edema. LUNGS: Respiratory rate increased; clear to auscultation. ABDOMEN: Soft, nontender, liver spleen not palpable, no masses palpable. PSYCH: Alert and oriented x3; mood and affect tired INVESTIGATIONS, reviewed in the clinical context: Blood culture [May 13]: Group D enterococcus. EKG tracing personally reviewed by me-sinus tachycardia. Rate 121. Some ST segment depression. May 13: White count 12.8 hemoglobin 15.7 platelets 211 INR 3.8 potassium 3.8 creatinine 0.92 Troponin I less than 0.012 UA: Negative for nitrite and leukoesterase Influenza type A, B, RSV, COVID-19: Not detected Chest x-ray film personally reviewed by me-no obvious infiltrate Assessment and plan: -Severe sepsis. Obvious concern for infected mechanical valve. - acute infective endocolitis of the mechanical valve.: Slow to respond Blood cultures positive d enterococcus. IV ampicillin and IV gentamicin. ID and cardiology following -Mechanical aortic valve on 03/04/2021, for unicuspid aortic valve and severe aortic regurgitation by Dr. Heaton. Continue with Coumadin. Pending YOVANY tomorrow for infective endocarditis -Coumadin monitoring Pharmacy to dose -Toxic cephalgia Local measures discussed. Treat underlying condition. -Chronic insomnia for medical condition -Hyperlipidemia Rosuvastatin -Chronic nonischemic cardiomyopathy from aortic valve disorder, EF 30-35% -Essential hypertension Toprol-XL 25 mg twice a day, Cozaar 25 mg a day Discussed with patient and .
[2023-05-15] MEDS ORDERED: GENTAMICIN PEAK DUE 1 EACH MISC MISCELLANE ONE (16:00)
--- NOTE | 2023-05-15 16:07 | P.PN ---
Subjective Progress Note Date: 05/15/23 Principal diagnosis: Enterococcus bacteremia and concern for endocarditis Patient is a 53-year-old male with a past medical history significant for hypertension depression CVA TIA did have a aortic valve replacement with mechanical valve on 03/04/2021 patient now presenting to [facility] ER for evaluation of shortness of breath headache not feeling well and a fever , recently did have urinary problems with hematuria and passage of the stone. On today's evaluation that is 05/15/2023 the patient did have improvement in his fever pattern with a low-grade fever 100.3 at noon, patient still complained of not feeling well has been complaining of headache and generalized body ache nausea but no vomiting no abdominal pain and no diarrhea has been reported Patient did have a white count of 8.8 creatinine 0.76 blood culture with enterococcus Objective - Vital Signs Vital signs: Vital Signs Temp 99.4 F 05/15/23 08:00 Pulse 78 05/15/23 08:00 Resp 18 05/15/23 08:00 BP 142/79 05/15/23 08:00 Pulse Ox 98 05/15/23 08:52 FiO2 Intake & Output 05/14/23 05/15/23 05/15/23 18:59 06:59 18:59 Output Total 850 680 650 Balance -850 -680 -650 Output: Urine 850 680 650 Other: Voiding Method Urinal # Voids 1 - Exam GENERAL DESCRIPTION: Middle-age male lying in bed in no distress RESPIRATORY SYSTEM: Unlabored breathing , decreased breath sounds at bases HEART: S1 S2 regular rate and rhythm , ABDOMEN: Soft , no tenderness EXTREMITIES: No edema feet - Labs CBC & Chem 7: 05/15/23 08:52 05/15/23 03:55 Labs: Abnormal Lab Results - Last 24 Hours (Table) 05/15/23 05/15/23 05/15/23 Range/Units 03:55 08:52 08:52 Hct 37.8 L (39.0-53.0) % Plt Count 146 L (150-450) k/uL ESR 26 H (0-15) mm/hr PT 21.8 H (9.0-12.0) sec INR 2.2 H (<1.2) C-Reactive Protein 16.4 H (<1.0) mg/dL Microbiology - Last 24 Hours (Table) 05/13/23 17:10 Blood Culture Gram Stain - Preliminary Blood Blood Culture - Preliminary Group D Enterococcus 05/13/23 17:25 Blood Culture Gram Stain - Preliminary Blood Blood Culture - Preliminary Group D Enterococcus Assessment and Plan (1) Bacteremia due to Enterococcus Current Visit: Yes Status: Acute Code(s): R78.81 - BACTEREMIA; B95.2 - ENTEROCOCCUS THE CAUSE OF DISEASES CLASSIFIED ELSEWHERE SNOMED Code(s): 5783873702 (2) Endocarditis Current Visit: Yes Status: Acute Code(s): I38 - ENDOCARDITIS, VALVE UNSPECIFIED SNOMED Code(s): 77502893 Plan: 1patient was in the hospital with sepsis in this patient with a fever tachycardia elevated white count now with evidence of Enterococcus faecalis bacteremia source 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 2Enterococcus faecalis bacteremia source likely endocarditis and the patient abdominal soft rectal examination and UA is negative. 3currently waiting for the echocardiogram 4patient to continue with ampicillin 2 g every 4 along with gentamicin for synergistic while watching his kidney function closely. 5blood culture to be repeated daily to document clearance of bacteremia. Dictation was produced using [employer] dictation software. please excuse any gramma tical, word or spelling errors. Time with Patient: Less than 30
[2023-05-15] MEDS ORDERED: WARFARIN 7.5 MG TAB PO ONE (18:00)
[2023-05-15] MEDS: MELATONIN 3 MG TABLET PO PRN (22:56)
[2023-05-15] MEDS: ALPRAZolam 0.25 MG TAB PO PRN (22:56)
[2023-05-16] MEDS: AMPICILLIN 2,000 MG in SODIUM CHLORIDE 0.9% 100 ML IVPB SCH ×7 (04:03→20:09)
[2023-05-16] MEDS: GENTAMICIN 100 MG in SODIUM CHLORIDE 0.9% 100 ML IVPB SCH ×3 (04:48→23:12)
[2023-05-16 10:03] LABS: INR 2.3 (<1.2); Prothrombin Time 22.5 sec (9.0-12.0)
[2023-05-16] MEDS: PANTOPRAZOLE 40 MG TABLET PO SCH (11:29)
[2023-05-16] MEDS: SODIUM CHLORIDE 0.9% 1,000 ML IV SCH (11:30)
[2023-05-16] MEDS ORDERED: fentaNYL (PF) 50 MCG/ML 2 ML AMP ONE (13:59)
[2023-05-16] MEDS: BENZOCAINE SPRAY 1 CAN MUCOUS MEM ONE ×2 (14:10→14:12)
[2023-05-16] MEDS ORDERED: MIDAZOLAM 2 MG/2 ML VIAL IVP ONE ×2 (14:12→14:15)
[2023-05-16] MEDS: fentaNYL (PF) 50 MCG/1 ML VIAL IVP ONE ×2 (14:12→14:13)
[2023-05-16] MEDS: MIDAZOLAM 2 MG/2 ML VIAL IVP ONE ×2 (14:16→14:29)
[2023-05-16] MEDS ORDERED: IV FLUID CONTINUATION 1,000 ML IV ONE (14:17)
--- NOTE | 2023-05-16 14:59 | P.TEE ---
Description of Procedure(s): Procedure performed: Transesophageal Echocardiogram with color flow doppler, pulsed wave doppler and continuous wave doppler, moderate conscious sedation Moderate conscious sedation: Moderate conscious sedation was supplied with direct supervision of myself using Versed and Fentanyl. Complications: none Indications: Bacteremia PROCEDURE: After the risks, benefits and alternatives of the above mentioned procedure was explained in detail with the patient, informed consent was obtained. Patient was brought to the lab in a fasting state. Patient was given IV Versed and Fentanyl for sedation. The throat was sprayed with Hurricane to anesthetize the throat. A lubricated Omni probe was then introduced into the esophagus and stomach and multiple views were obtained. 2D echo with color flow doppler, pulsed wave doppler and continuous wave doppler was utilized. Agitated saline bubbles were injected to assess for any intra-atrial shunt. Lumason was also used to help to identify if echodensity was artifact or vegetation. The probe was then removed. Patient tolerated the procedure well. Patient was transferred to the post procedure area in stable and satisfactory condition. FINDINGS: 1. There is a mechanical aortic valve with normal function. There is a 1.9 x 0.8 mm echodensity on the aortic side of the aortic valve consistent with possible vegetation versus artifacts. Lumason was used which appeared to move through echodensity, more consistent with artifact. If clinical concern of infective endocarditis consider ICE, cardiac MRI or PET scan. 2. The mitral valve appears be normal with mild mitral regurgitation. 3. Tricuspid valve is normal with trace tricspid regurgitation. 4. The interatrial septum is intact. No evidence of PFO. 5. Left atrial appendage has been ligated and is free of clot. 6. Left ventricular EF is 55%. 7. Ascending aortic root graft appears patent without vegetation or echodensity
[2023-05-16] MEDS: FAMOTIDINE 20 MG TAB PO SCH ×2 (16:08→20:09)
[2023-05-16] MEDS: METOPROLOL SUCCINATE (ER) 25 MG TAB.ER.24H PO SCH ×2 (16:08→20:09)
[2023-05-16] MEDS: ASPIRIN 81 MG PO SCH (16:34)
[2023-05-16] MEDS: ATORVASTATIN 10 MG TAB PO SCH (16:34)
[2023-05-16] MEDS: LOSARTAN 25 MG TAB PO SCH (16:34)
[2023-05-16] MEDS: MULTIVITAMINS, THERA 1 EACH TAB PO SCH (16:34)
--- NOTE | 2023-05-16 17:12 | P.PN ---
Progress Note - Text Progress Note Date: 05/16/23 Chief Complaint: Feeling unwell This is a very pleasant 53-year-old patient follows with Dr. Shannon. Chronic stable medical conditions include hypertension, hyperlipidemia, cardiomyopathy EF of about 30-35%. 4 unicuspid aortic valve with severe aortic regurgitation. 03/04/21 underwent aortic valve replacement with a mechanical valve by Dr. Heaton. Cardiac catheterization - normal coronaries. Patient follows with Dr. Lezama note of Aysha Mason. Patient is doing well up to yesterday afternoon. Started feeling unwell. Chills. Decreased appetite. Some shortness of breath. Tired rundown. Given the ER. Started spiking fevers. Was given IV ceftriaxone and vancomycin the ER. ID was consulted. On night patient continued to spike fever. Denies any cough. No chest pain. No urinary symptoms. Chills and rigors. Accompanied by his at the bedside. Patient had 1 episode of diarrhea yesterday. No abdominal pain. May 15: Seen this morning. at the bedside. Weak tired. No fever since yesterday evening. Headache. Per cardiology for YOVANY tomorrow. On IV ampicillin and gentamicin. Blood cultures growing group D enterococcus. Repeat blood cultures ordered. May 16: Underwent YOVANY today. Questionable regurgitation. Versus artifact. Postprocedure patient is sleepy. Discussed with Dr. Boggs. We'll consult cardiothoracic for their opinion. No fever since overnight. Blood cultures growing enterococcus. Sensitive to penicillin. Active Medications Acetaminophen (Acetaminophen Tab 325 Mg Tab) 650 mg PO Q6HR PRN PRN Reason: Mild Pain or Fever > 100.5 Last Admin: 05/15/23 22:56 Dose: 650 mg Alprazolam (Alprazolam 0.25 Mg Tab) 0.25 mg PO Q6HR PRN PRN Reason: Anxiety Last Admin: 05/15/23 22:56 Dose: 0.25 mg Aspirin (Aspirin 81 Mg) 81 mg PO DAILY [facility] Last Admin: 05/16/23 16:34 Dose: 81 mg Atorvastatin Calcium (Atorvastatin 10 Mg Tab) 10 mg PO DAILY [facility] Last Admin: 05/16/23 16:34 Dose: 10 mg Baclofen (Baclofen 10 Mg Tab) 5 mg PO TID PRN PRN Reason: Muscle Spasm Calcium Carbonate/Glycine (Calcium Carbonate 500 Mg Chewable) 1,000 mg PO Q4HR PRN PRN Reason: Dyspepsia Famotidine (Famotidine 20 Mg Tab) 20 mg PO BID [facility] Last Admin: 05/16/23 16:08 Dose: Not Given Ampicillin Sodium 2,000 mg/ (Sodium Chloride) 100 mls @ 200 mls/hr IVPB Q4HR [facility]; Protocol Last Admin: 05/16/23 16:34 Dose: 200 mls/hr Gentamicin Sulfate 100 mg/ (Sodium Chloride) 102.5 mls @ 102.5 mls/hr IVPB Q8H [facility] Last Admin: 05/16/23 15:03 Dose: 102.5 mls/hr Sodium Chloride (Saline 0.9%) 1,000 mls @ 50 mls/hr IV .Q20H [facility] Last Admin: 05/16/23 11:30 Dose: Not Given Lactulose (Lactulose 20 Gm/30 Ml Cup) 20 gm PO DAILY PRN PRN Reason: Constipation Losartan Potassium (Losartan 25 Mg Tab) 25 mg PO DAILY [facility] Last Admin: 05/16/23 16:34 Dose: 25 mg Melatonin (Melatonin 3 Mg Tablet) 3 mg PO HS PRN PRN Reason: Insomnia Last Admin: 05/15/23 22:56 Dose: 3 mg Metoprolol Succinate (Metoprolol Succinate (Er) 25 Mg Tab.Er.24h) 25 mg PO BID [facility] Last Admin: 05/16/23 16:08 Dose: Not Given Miscellaneous Information (Warfarin Per Pharmacy) 0 each MISCELLANE DIRECTED PRN PRN Reason: PER PROTOCOL Multivitamins (Multivitamins, Thera 1 Each Tab) 1 each PO DAILY [facility] Last Admin: 05/16/23 16:34 Dose: 1 each Naloxone HCl (Naloxone 0.4 Mg/Ml 1 Ml Vial) 0.2 mg IV Q2M PRN PRN Reason: Opioid Reversal Ondansetron HCl (Ondansetron 4 Mg/2 Ml Vial) 4 mg IVP Q8HR PRN PRN Reason: Nausea And Vomiting Last Admin: 05/13/23 22:15 Dose: 4 mg Pantoprazole Sodium (Pantoprazole 40 Mg Tablet) 40 mg PO AC-BRKFST [facility] Last Admin: 05/16/23 11:29 Dose: Not Given Warfarin Sodium (Warfarin 7.5 Mg Tab) 7.5 mg PO ONCE@1800 [facility]; Protocol Stop: 05/16/23 18:01 Past medical history to include: Unicuspid aortic valve and severe AR leading to Mechanical aortic valve on February 2021 on Coumadin, hypertension, hyperlipidemia, normal cardiac catheterization, EF 30-35% Social history: No alcohol. stopped smoking in August 2020. Breathing about half a pack per week. 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 . Physical examination: VITAL SIGNS: 98.1, 73, 18, 151/81, 99% on 2 L GENERAL: BMI 31.2 laying in bed, sleepy EYES: Pupils equal. Conjunctiva normal. HEENT: External appearance of nose and ears normal, oral cavity grossly normal. NECK: JVD not raised; masses not palpable. HEART: Mechanical heart sound; no edema. LUNGS: Respiratory rate increased; clear to auscultation. ABDOMEN: Soft, nontender, liver spleen not palpable, no masses palpable. PSYCH: Sleepy answering some questions INVESTIGATIONS, reviewed in the clinical context: YOVANY: Questionable vegetation versus artifact. Blood culture [May 13]: Group D enterococcus. EKG tracing personally reviewed by me-sinus tachycardia. Rate 121. Some ST segment depression. May 13: White count 12.8 hemoglobin 15.7 platelets 211 INR 3.8 potassium 3.8 creatinine 0.92 Troponin I less than 0.012 UA: Negative for nitrite and leukoesterase Influenza type A, B, RSV, COVID-19: Not detected Chest x-ray film personally reviewed by me-no obvious infiltrate Assessment and plan: -Severe sepsis. Obvious concern for infected mechanical valve. - acute infective endocolitis of the mechanical valve.: Slow to respond Blood cultures positive-Enterococcus faecalis.. IV ampicillin and IV gentamicin. ID and cardiology following YOVANY: Vegetation versus artifact. Cardiothoracic surgery consulted -Mechanical aortic valve on 03/04/2021, for unicuspid aortic valve and severe aortic regurgitation by Dr. Heaton. Continue with Coumadin. Cardiothoracic surgery consulted -Coumadin monitoring Pharmacy to dose -Toxic cephalgia Local measures discussed. Treat underlying condition. -Chronic insomnia for medical condition -Hyperlipidemia Rosuvastatin -Chronic nonischemic cardiomyopathy from aortic valve disorder, EF 30-35% -Essential hypertension Toprol-XL 25 mg twice a day, Cozaar 25 mg a day Scars from Dr. Hua. Cardiothoracic surgery consulted. Continue current treatment plan. Repeat labs.
--- NOTE | 2023-05-16 17:22 | P.PN ---
Subjective Progress Note Date: 05/16/23 Principal diagnosis: Enterococcus bacteremia and concern for endocarditis Patient is a 53-year-old male with a past medical history significant for hypertension depression CVA TIA did have a aortic valve replacement with mechanical valve on 03/04/2021 patient now presenting to [facility] ER for evaluation of shortness of breath headache not feeling well and a fever , recently did have urinary problems with hematuria and passage of the stone. Patient is status post YOVANY completed on 05/16/2023 with evidence of mitral valve endocarditis On today's evaluation that is 05/16/2023, the patient did have resolution of his fever and is afebrile today, the patient is breathing comfortably on room air, the patient denies chest pain, no cough, no nausea no vomiting no abdominal pain and no diarrhea has been reported. Patient slightly upset with an use of infected valve Patient did have a white count of 8.8 creatinine 0.76 as of yesterday no blood draw today blood culture with enterococcus faecalis Objective - Vital Signs Vital signs: Vital Signs Temp 98.1 F 05/16/23 15:02 Pulse 73 05/16/23 15:02 Resp 18 05/16/23 15:02 BP 151/81 05/16/23 15:02 Pulse Ox 99 05/16/23 15:02 FiO2 Intake & Output 05/15/23 05/16/23 05/16/23 18:59 06:59 18:59 Intake Total 900 200 Output Total 1575 1100 250 Balance -675 -1100 -50 Intake: IV 100 Intake, IV Titration 100 Amount Ampicillin 2,000 mg In 100 Sodium Chloride 0.9% 100 ml @ 200 mls/hr IVPB Q4HR [facility] Rx#:[id number] Oral 900 Output: Urine 1575 1100 250 Other: Voiding Method Urinal Urinal # Voids 1 - Exam GENERAL DESCRIPTION: Middle-age male lying in bed in no distress RESPIRATORY SYSTEM: Unlabored breathing , decreased breath sounds at bases HEART: S1 S2 regular rate and rhythm , ABDOMEN: Soft , no tenderness EXTREMITIES: No edema feet - Labs CBC & Chem 7: 05/15/23 08:52 05/15/23 03:55 Labs: Abnormal Lab Results - Last 24 Hours (Table) 05/16/23 Range/Units 09:13 PT 22.5 H (9.0-12.0) sec INR 2.3 H (<1.2) Microbiology - Last 24 Hours (Table) 05/13/23 17:10 Blood Culture Gram Stain - Final Blood Blood Culture - Final Enterococcus faecalis 05/13/23 17:25 Blood Culture Gram Stain - Final Blood Blood Culture - Final Enterococcus faecalis Assessment and Plan (1) Bacteremia due to Enterococcus Current Visit: Yes Status: Acute Code(s): R78.81 - BACTEREMIA; B95.2 - ENTEROCOCCUS THE CAUSE OF DISEASES CLASSIFIED ELSEWHERE SNOMED Code(s): 2274276558 (2) Endocarditis Current Visit: Yes Status: Acute Code(s): I38 - ENDOCARDITIS, VALVE UNSPECIFIED SNOMED Code(s): 95648498 Plan: 1patient was in the hospital with sepsis in this patient with a fever tachycardia elevated white count now with evidence of Enterococcus faecalis bacteremia source 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 2Enterococcus faecalis bacteremia source likely endocarditis and the patient abdominal soft rectal examination and UA is negative. 3patient is status post YOVANY suspicious for prosthetic valve endocarditis 4patient to continue with ampicillin 2 g every 4 along with gentamicin for synergistic while watching his kidney function closely. 5CT surgery evaluation. Dictation was produced using [email or web address] dictation software. please excuse any grammatical, word or spelling errors. Time with Patient: Less than 30
[2023-05-16] MEDS ORDERED: WARFARIN 7.5 MG TAB PO ONE (18:00)
[2023-05-16] MEDS: ACETAMINOPHEN TAB 325 MG TAB PO PRN (18:01)
[2023-05-16 20:24] LABS: Glucose,Whole Blood 97 mg/dL (70-110)
[2023-05-17] MEDS: AMPICILLIN 2,000 MG in SODIUM CHLORIDE 0.9% 100 ML IVPB SCH ×7 (00:41→23:42)
[2023-05-17] MEDS: MELATONIN 3 MG TABLET PO PRN ×2 (01:28→23:41)
[2023-05-17] MEDS: ALPRAZolam 0.25 MG TAB PO PRN ×2 (01:28→23:41)
[2023-05-17] MEDS: SODIUM CHLORIDE 0.9% 1,000 ML IV SCH (04:06)
[2023-05-17] MEDS: GENTAMICIN 100 MG in SODIUM CHLORIDE 0.9% 100 ML IVPB SCH ×3 (05:09→22:37)
[2023-05-17] MEDS: ACETAMINOPHEN TAB 325 MG TAB PO PRN (05:19)
[2023-05-17] MEDS: PANTOPRAZOLE 40 MG TABLET PO SCH (06:44)
[2023-05-17] MEDS: ASPIRIN 81 MG PO SCH (08:52)
[2023-05-17] MEDS: MULTIVITAMINS, THERA 1 EACH TAB PO SCH (08:52)
[2023-05-17] MEDS: ATORVASTATIN 10 MG TAB PO SCH (08:52)
[2023-05-17] MEDS: LOSARTAN 25 MG TAB PO SCH (08:52)
[2023-05-17] MEDS: METOPROLOL SUCCINATE (ER) 25 MG TAB.ER.24H PO SCH ×2 (08:52→20:35)
[2023-05-17] MEDS: FAMOTIDINE 20 MG TAB PO SCH ×2 (08:52→20:36)
--- NOTE | 2023-05-17 09:32 | P.GSCN ---
History of Present Illness Consult date: 05/17/23 Reason for Consult: Possible aortic valve endocarditis Requesting physician: Teodoro Almeida History of present illness: This is a 53-year-old gentleman who follows up patient with Dr. Shannon for primary care and Dr. Tabor for cardiology. He is a known medical history of unicuspid aortic valve with severe aortic regurgitation status post On-X mechanical aortic valve replacement with ascending aortic replacement in February 2021, CVA 2, hypertension, hyperlipidemia, kidney stones with removal, and previous tobacco dependence. Apparently he went to see his primary care physician last Thursday as he thought he had kidney stones due to severe pain in his back and some shortness of breath. He was sent home, and continue to feel bad. He took his temperature at home which reportedly spiked to 106F and he presented to [facility] for evaluation. In the emergency room his temperature was 102.9 which did climb as high as 103.3. Lab work revealed WBC 12.8, INR 3.8, creatinine 0.92, negative troponin, and serology was negative for Covid, RSV, and influenza A&B. Blood cultures were drawn and were positive for Enterococcus faecalis. The patient was admitted with cardiology and infectious disease consulted. He was started on IV antibiotics. Transthoracic echocardiogram was completed on May 14 with no mention of endocarditis, mechanical aortic valve appeared to be functioning normally without stenosis or regurgitation and no evidence of perivalvular leak. Due to bacteremia patient underwent transesophageal echocardiogram yesterday with evidence of 1.9 x 0.8 mm echo density on the aortic side of the aortic valve. When Lumison was added the echodensity appeared to represent artifact versus vegetation. Consultation was placed to Dr. Herman from cardiothoracic surgery for recommendations. Review of Systems Review of systems was completed and was negative except as noted - Constitutional Reports fever - Cardiovascular Reports shortness of breath - Musculoskeletal Reports low back pain Past Medical History Past Medical History: Heart Failure, CVA/TIA, Hyperlipidemia, Hypertension Additional Past Medical History / Comment(s): kidney stones; possible CHRIS- patient was seen by pulmonology in 03/2019 but didn't follow up with testing for CHRIS History of Any Multi-Drug Resistant Organisms: None Reported Past Surgical History: Appendectomy, Heart Catheterization Additional Past Surgical History / Comment(s): kidney stones procedure,YOVANY, aortic valve/ascending aorta replaced on 03/04/21 with On-X mechanical valve and gel weave graft Past Anesthesia/Blood Transfusion Reactions: Postoperative Nausea & Vomiting ( PONV) Past Psychological History: Depression Smoking Status: Former smoker Past Alcohol Use History: None Reported Additional Past Alcohol Use History / Comment(s): quit smoking several times,finally quit Aug 2020.1/2 ppweek since teens Past Drug Use History: None Reported - Past Family History Mother Family Medical History: Cancer Additional Family Medical History / Comment(s): still alive at 78 y/o Father Family Medical History: CVA/TIA Additional Family Medical History / Comment(s): at 86 y/o Medications and Allergies Home Medications Medication Instructions Recorded Confirmed Type Aspirin 81 mg PO DAILY #0 03/10/21 05/13/23 Rx Losartan [Cozaar] 25 mg PO DAILY 04/13/21 05/13/23 History Metoprolol Succinate (ER) [Toprol 25 mg PO BID 04/13/21 05/13/23 History XL] Warfarin [Coumadin] 7.5 mg PO HS 04/13/21 05/13/23 History Multivitamins, Thera [Multivitamin 1 tab PO DAILY 05/13/23 05/13/23 History (formulary)] Pantoprazole [Protonix] 40 mg PO DAILY 05/13/23 05/13/23 History Potassium Gluconate 90mg 90 mg PO DAILY 05/13/23 05/13/23 History Rosuvastatin Calcium 5 mg PO DAILY 05/13/23 05/13/23 History Allergies Allergy/AdvReac Type Severity Reaction Status Date / Time Iodinated Contrast Media AdvReac Severe Vomiting Verified 05/13/23 18:20 Surgical - Exam Vital Signs Temp Pulse Resp BP Pulse Ox 102.9 F H 129 H 24 151/81 97 05/13/23 16:30 05/13/23 16:30 05/13/23 16:30 05/13/23 16:30 05/13/23 16:30 CONSTITUTIONAL: Awake and alert, appears comfortable, cooperative, well- developed, well-nourished, no pain, no acute distress EYES: Pupils equal, round, reactive to light, normal ocular movement ENT: Moist mucous membranes without oral lesions present NECK: No masses, no bruits, trachea midline RESPIRATORY: Lungs sounds clear to auscultation bilaterally. Respirations even, nonlabored. Currently on room air with oxygen saturation 98%. Strong cough CARDIOVASCULAR: S1, S2 present. Regular rate and rhythm, sinus rhythm on telemetry. Sternum stable. Palpable peripheral pulses bilaterally. No edema present GASTROINTESTINAL: Abdomen soft, nontender, nondistended without masses or organomegaly noted. There is no rebound or guarding present. Active bowel sounds present 4 quadrants. GENITOURINARY: Deferred INTEGUMENTARY: Skin is warm and dry with evidence of good perfusion. Well- healed anterior chest scar present NEUROLOGIC: Cranial nerves II through XII intact, normal coordination, no obvious motor or sensory deficits, speech is normal MUSKULOSKELETAL: Able to move all extremities, strength equal bilaterally, normal posture PSYCHIATRIC: Alert and oriented to person place and time, appropriate affect, intact judgment and insight Results - Labs 05/15/23 08:52 05/15/23 03:55 Abnormal Lab Results - Last 24 Hours (Table) 05/16/23 Range/Units 09:13 PT 22.5 H (9.0-12.0) sec INR 2.3 H (<1.2) Microbiology - Last 24 Hours (Table) 05/15/23 08:52 Blood Culture - Preliminary Blood 05/13/23 17:10 Blood Culture Gram Stain - Final Blood Blood Culture - Final Enterococcus faecalis 05/13/23 17:25 Blood Culture Gram Stain - Final Blood Blood Culture - Final Enterococcus faecalis - Imaging Chest x-ray: report reviewed, image reviewed EKG: image reviewed Additional studies: Echocardiogram films revealed Assessment and Plan Assessment: Bacteremia with enterococcus faecalis Sepsis with concern for infective endocarditis of the mechanical valve History of unicuspid aortic valve with severe aortic regurgitation status post On-X mechanical aortic valve replacement with ascending aortic replacement in February 2021 CVA 2 History of hypertension Hyperlipidemia Kidney stones with removal Previous tobacco dependence Plan: The patient was seen and examined sitting up in bed in the cardiac stepdown unit in no acute distress eating breakfast. States he does feel better than when he presented to the hospital. Has remained afebrile for the last 24 hours. Denies pain or shortness of breath. Most recent blood culture from May 15 is preliminarily negative. Remains on gentamicin and ampicillin per infectious disease. Chart/diagnostics were reviewed including echocardiogram film. The case was discussed with Dr. Herman who will see the patient today. Further r ecommendations forthcoming. Thank you Dr. Almeida for this consult. I have personally seen and examined the patient, performed the documentation and the assessment and plan as written. Number of minutes spent on the visit: 30. Kiarra Brown NP-C
[2023-05-17 10:32] LABS: Basophils % (A) 1 %; Eosinophils # (A) 0.2 k/uL (0-0.7); Eosinophils % (A) 3 %; HCT 39.7 % (39.0-53.0); HGB 14.4 gm/dL (13.0-17.5); Lymphocytes # (A) 1.4 k/uL (1.0-4.8); Lymphocytes % (A) 20 %; MCH 29.7 pg (25.0-35.0); MCHC 36.2 g/dL (31.0-37.0); Mean Platelet Volume 7.7; Monocytes # (A) 0.4 k/uL (0-1.0); Monocytes % (A) 5 %; Neutrophils # (A) 4.9 k/uL (1.3-7.7); Neutrophils % (A) 69 %; Platelet Count 201 k/uL (150-450); RBC 4.84 m/uL (4.30-5.90); RDW 13.8 % (11.5-15.5); WBC 7.1 k/uL (3.8-10.6)
[2023-05-17 10:38] LABS: INR 3.2 (<1.2); Prothrombin Time 30.7 sec (9.0-12.0)
[2023-05-17 10:52] LABS: ALT 30 U/L (4-49); AST 34 U/L (17-59); African American GFR (CKD) >90 (>60 ml/min/1.73 sqM); Albumin 3.7 g/dL (3.5-5.0); Alkaline Phosphatase 60 U/L (38-126); Anion Gap 11 mmol/L; Blood Urea Nitrogen 13 mg/dL (9-20); Calcium 9.1 mg/dL (8.4-10.2); Carbon Dioxide 21 mmol/L (22-30); Chloride 105 mmol/L (98-107); Glucose 104 mg/dL (74-99); Non-African American GFR(CKD) >90 (>60 ml/min/1.73 sqM); Potassium 3.3 mmol/L (3.5-5.1); Sodium 137 mmol/L (137-145); Total Bilirubin 1.4 mg/dL (0.2-1.3); Total Protein 6.7 g/dL (6.3-8.2)
--- NOTE | 2023-05-17 13:05 | P.PN ---
Subjective HISTORY OF PRESENT ILLNESS: This is a 53-year-old male with a past medical history significant for CVA, and mechanical aortic valve replacement in 2020. Patient follows with Dr. Tabor. We have been asked to see the patient in consultation for sepsis. Patient examined at the bedside. Patient states he began having fevers yesterday. He states his temperature spiked to 106F. He states that he "felt horrible" yesterday. He reports he was shivering and had generalized body aches. Patient presented to the hospital for further evaluation. Blood cultures are positive for gram- positive cocci in chains. Patient currently denies chest pain or pressure. He denies shortness of breath. The patient does give a history of CVA 2 in November 2021 and December 2021. He believes the first time was secondary to his INR being too low. He reports residual right-sided weakness and speech issues from his CVA. * EKG reveals sinus tachycardia * Chest xray negative for acute process. * Laboratory data: W BC 12.8. Hemoglobin 15.7. Platelet count 211. INR 3.8. Repeat 2.8. Sodium 136. Potassium 3.8. BUN 9. Creatinine 0.92. Troponin negative 2. * Current home cardiac medications include rosuvastatin 5 mg daily, losartan 25 mg daily, metoprolol succinate 25 mg twice a day, and warfarin 7.5 mg at night 05/15 Patient is seen and examined. Patient denies any chest pain or pressure. Blood cultures have grown out enterococcus. Infectious disease concern of possible endocarditis. Transthoracic echo does not show any significant vegetation. He does have a headache and not much of an appetite today. 05/17 Patient seen and examined. Patient admits to improvement in his headache. He underwent YOVANY yesterday which showed normally functioning mechanical aortic valve with echo density on the aortic side of the aortic valve possibly consistent with vegetation versus artifact with recommendations for possible CT, PET scan or cardiac MRI. Cardiothoracic surgery was counseled that. Repeat blood culture negative to date. PHYSICAL EXAM: VITAL SIGNS: Reviewed. GENERAL: Well-developed in no acute distress. HEENT: Head is normocephalic. Pupils are equal, round. Sclerae anicteric. Mucous membranes of the mouth are moist. Neck supple. No JVD or thyromegaly LUNGS: Respirations even and unlabored. Lungs essentially clear to auscultation bilaterally. HEART: Regular rate and rhythm. S1 and S2 heard. ABDOMEN: Soft. Nondistended. Nontender. EXTREMITIES: Normal range of motion. No clubbing or cyanosis. Peripheral pulses intact. No lower extremity edema NEUROLOGIC: Awake and alert. Oriented x 3. ASSESSMENT: Sepsis Bacteremia, blood cultures are positive for enterococous History of mechanical aortic valve replacement, 2020 History of CVA 2021, with residual right-sided weakness and speech issues per patient Hypertension Hyperlipidemia Echo density noted on YOVANY, possible vegetation versus artifact PLAN: Continue with Coumadin Discussed case with cardiothoracic surgery. Fortunately so far blood cultures have been clearing and continue with antibiotics. Further assessment needed to clarify whether echo density is vegetation versus artifact. Start with CTA to further evaluate. May consider PET scan versus cardiac MRI pending results. Further recommendations to follow. Objective - Vital Signs Vital signs: Vital Signs Temp 98.1 F 05/17/23 11:41 Pulse 76 05/17/23 11:41 Resp 18 05/17/23 11:41 BP 155/88 05/17/23 11:41 Pulse Ox 97 05/17/23 11:41 FiO2 Intake & Output 05/16/23 05/17/23 05/17/23 18:59 06:59 18:59 Intake Total 440 250 Output Total 450 950 550 Balance -10 -950 -300 Intake: IV 100 10 Invasive Line 2 10 Intake, IV Titration 100 Amount Ampicillin 2,000 mg In 100 Sodium Chloride 0.9% 100 ml @ 200 mls/hr IVPB Q4HR [facility] Rx#:[id number] Oral 240 240 Output: Urine 450 950 550 Other: Voiding Method Urinal Urinal Urinal - Labs CBC & Chem 7: 05/17/23 09:22 05/17/23 09:22 Labs: Abnormal Lab Results - Last 24 Hours (Table) 05/17/23 05/17/23 Range/Units 09: 09:22 PT 30.7 H (9.0-12.0) sec INR 3.2 H (<1.2) Potassium 3.3 L (3.5-5.1) mmol/L Carbon Dioxide 21 L (22-30) mmol/L Glucose 104 H (74-99) mg/dL Total Bilirubin 1.4 H (0.2-1.3) mg/dL Microbiology - Last 24 Hours (Table) 05/15/23 08:52 Blood Culture - Preliminary Blood 05/13/23 17:10 Blood Culture Gram Stain - Final Blood Blood Culture - Final Enterococcus faecalis 05/13/23 17:25 Blood Culture Gram Stain - Final Blood Blood Culture - Final Enterococcus faecalis
--- NOTE | 2023-05-17 16:11 | P.PN ---
Progress Note - Text Progress Note Date: 05/17/23 Chief Complaint: Feeling unwell This is a very pleasant 53-year-old patient follows with Dr. Shannon. Chronic stable medical conditions include hypertension, hyperlipidemia, cardiomyopathy EF of about 30-35%. 4 unicuspid aortic valve with severe aortic regurgitation. 03/04/21 underwent aortic valve replacement with a mechanical valve by Dr. Heaton. Cardiac catheterization - normal coronaries. Patient follows with Dr. Lezama note of Aysha Mason. Patient is doing well up to yesterday afternoon. Started feeling unwell. Chills. Decreased appetite. Some shortness of breath. Tired rundown. Given the ER. Started spiking fevers. Was given IV ceftriaxone and vancomycin the ER. ID was consulted. On night patient continued to spike fever. Denies any cough. No chest pain. No urinary symptoms. Chills and rigors. Accompanied by his at the bedside. Patient had 1 episode of diarrhea yesterday. No abdominal pain. May 15: Seen this morning. at the bedside. Weak tired. No fever since yesterday evening. Headache. Per cardiology for YOVANY tomorrow. On IV ampicillin and gentamicin. Blood cultures growing group D enterococcus. Repeat blood cultures ordered. May 16: Underwent YOVANY today. Questionable regurgitation. Versus artifact. Postprocedure patient is sleepy. Discussed with Dr. Boggs. We'll consult cardiothoracic for their opinion. No fever since overnight. Blood cultures growing enterococcus. Sensitive to penicillin. May 17: Discussed with the patient and . No evidence of UTI on this admission. Patient did have a UTI about 2 weeks ago. Discussed with ID Dr. Hernández. Strong suspicion surgery remains for infective endocarditis. Did discuss with Dr. Boggs from cardiology. Dr. Hernández to speak to Dr. Heaton from cardiothoracic surgery. Meantime patient is doing much better. No fever. Appetite improving. Total time spent today about 50 minutes with over 30 minutes of discussion. Active Medications Acetaminophen (Acetaminophen Tab 325 Mg Tab) 650 mg PO Q6HR PRN PRN Reason: Mild Pain or Fever > 100.5 Last Admin: 05/17/23 05:19 Dose: 650 mg Alprazolam (Alprazolam 0.25 Mg Tab) 0.25 mg PO Q6HR PRN PRN Reason: Anxiety Last Admin: 05/17/23 01:28 Dose: 0.25 mg Aspirin (Aspirin 81 Mg) 81 mg PO DAILY [facility] Last Admin: 05/17/23 08:52 Dose: 81 mg Atorvastatin Calcium (Atorvastatin 10 Mg Tab) 10 mg PO DAILY [facility] Last Admin: 05/17/23 08:52 Dose: 10 mg Baclofen (Baclofen 10 Mg Tab) 5 mg PO TID PRN PRN Reason: Muscle Spasm Calcium Carbonate/Glycine (Calcium Carbonate 500 Mg Chewable) 1,000 mg PO Q4HR PRN PRN Reason: Dyspepsia Diphenhydramine HCl (Diphenhydramine 25 Mg Cap) 50 mg PO ONCE ONE Stop: 05/18/23 09:01 Famotidine (Famotidine 20 Mg Tab) 20 mg PO BID [facility] Last Admin: 05/17/23 08:52 Dose: 20 mg Ampicillin Sodium 2,000 mg/ (Sodium Chloride) 100 mls @ 200 mls/hr IVPB Q4HR [facility]; Protocol Last Admin: 05/17/23 12:18 Dose: 200 mls/hr Gentamicin Sulfate 100 mg/ (Sodium Chloride) 102.5 mls @ 102.5 mls/hr IVPB Q8H [facility] Last Admin: 05/17/23 15:11 Dose: 102.5 mls/hr Sodium Chloride (Saline 0.9%) 1,000 mls @ 50 mls/hr IV .Q20H [facility] Last Admin: 05/17/23 04:06 Dose: 50 mls/hr Lactulose (Lactulose 20 Gm/30 Ml Cup) 20 gm PO DAILY PRN PRN Reason: Constipation Losartan Potassium (Losartan 25 Mg Tab) 25 mg PO DAILY [facility] Last Admin: 05/17/23 08:52 Dose: 25 mg Melatonin (Melatonin 3 Mg Tablet) 3 mg PO HS PRN PRN Reason: Insomnia Last Admin: 05/17/23 01:28 Dose: 3 mg Metoprolol Succinate (Metoprolol Succinate (Er) 25 Mg Tab.Er.24h) 25 mg PO BID [facility] Last Admin: 05/17/23 08:52 Dose: 25 mg Miscellaneous Information (Warfarin Per Pharmacy) 0 each MISCELLANE DIRECTED PRN PRN Reason: PER PROTOCOL Multivitamins (Multivitamins, Thera 1 Each Tab) 1 each PO DAILY [facility] Last Admin: 05/17/23 08:52 Dose: 1 each Naloxone HCl (Naloxone 0.4 Mg/Ml 1 Ml Vial) 0.2 mg IV Q2M PRN PRN Reason: Opioid Reversal Ondansetron HCl (Ondansetron 4 Mg/2 Ml Vial) 4 mg IVP Q8HR PRN PRN Reason: Nausea And Vomiting Last Admin: 05/13/23 22:15 Dose: 4 mg Pantoprazole Sodium (Pantoprazole 40 Mg Tablet) [address] [facility] Last Admin: 05/17/23 06:44 Dose: 40 mg Prednisone (Prednisone 50 Mg Tab) 50 mg PO ONCE ONE Stop: 05/17/23 21:01 Prednisone (Prednisone 50 Mg Tab) 50 mg PO ONCE ONE Stop: 05/18/23 03:01 Prednisone (Prednisone 50 Mg Tab) 50 mg PO ONCE ONE Stop: 05/18/23 09:01 Warfarin Sodium (Warfarin 3 Mg Tab) 3 mg PO ONCE@1800 ONE Stop: 05/17/23 18:01 Past medical history to include: Unicuspid aortic valve and severe AR leading to Mechanical aortic valve on February 2021 on Coumadin, hypertension, hyperlipidemia, normal cardiac catheterization, EF 30-35% Social history: No alcohol. stopped smoking in August 2020. Breathing about half a pack per week. 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 . Physical examination: VITAL SIGNS: 98.2, 71, 18, 166.86, 96% room air GENERAL: Laying in bed, comfortable EYES: Pupils equal. Conjunctiva normal. HEENT: External appearance of nose and ears normal, oral cavity grossly normal. NECK: JVD not raised; masses not palpable. HEART: Mechanical heart sound; no edema. LUNGS: Respiratory rate increased; clear to auscultation. ABDOMEN: Soft, nontender, liver spleen not palpable, no masses palpable. PSYCH: Sleepy answering some questions INVESTIGATIONS, reviewed in the clinical context: May 17: White count 7.1 hemoglobin 14.4 platelets 201 INR 3.2 potassium 3.3 creatinine 0.66. Procalcitonin 0.16 YOVANY: Questionable vegetation versus artifact. Blood culture [May 13]: Enterococcus faecalis. [May 15: Pending EKG tracing personally reviewed by me-sinus tachycardia. Rate 121. Some ST segment depression. May 13: White count 12.8 hemoglobin 15.7 platelets 211 INR 3.8 potassium 3.8 creatinine 0.92 Troponin I less than 0.012 UA: Negative for nitrite and leukoesterase Influenza type A, B, RSV, COVID-19: Not detected Chest x-ray film personally reviewed by me-no obvious infiltrate Assessment and plan: -Severe sepsis. Probable acute infective endocolitis of the mechanical valve.: Responding Blood cultures positive-Enterococcus faecalis.. IV ampicillin and IV gentamicin. ID and cardiology following YOVANY: Vegetation not clearly identified Cardiothoracic surgery, cardiology, ID following. -Mechanical aortic valve on 03/04/2021, for unicuspid aortic valve and severe aortic regurgitation by Dr. Heaton. Continue with Coumadin. Cardiothoracic surgery following -Coumadin monitoring Pharmacy to dose -Toxic cephalgia: Better Local measures discussed. Treat underlying condition. -Chronic insomnia for medical condition -Hyperlipidemia Rosuvastatin -Chronic nonischemic cardiomyopathy from aortic valve disorder, EF 30-35% -Essential hypertension Toprol-XL 25 mg twice a day, Cozaar 25 mg a day
--- NOTE | 2023-05-17 16:39 | P.PN ---
Subjective Progress Note Date: 05/17/23 Principal diagnosis: Enterococcus bacteremia and concern for endocarditis Patient is a 53-year-old male with a past medical history significant for hypertension depression CVA TIA did have a aortic valve replacement with mechanical valve on 03/04/2021 patient now presenting to [facility] ER for evaluation of shortness of breath headache not feeling well and a fever , recently did have urinary problems with hematuria and passage of the stone. Patient is status post YOVANY completed on 05/16/2023 with evidence of mitral valve endocarditis On today's evaluation that is 05/17/2023, the patient continues to be afebrile, the patient is breathing comfortably and denies any shortness of breath no chest pain or cough, the patient denies having any nausea and vomiting no abdominal pain and no diarrhea Patient did have a white count of 7.1 creatinine 0.66 , blood culture with enterococcus faecalis, blood culture repeat so far pending Objective - Vital Signs Vital signs: Vital Signs Temp 98.2 F 05/17/23 15:16 Pulse 71 05/17/23 15:16 Resp 18 05/17/23 15:16 BP 166/86 05/17/23 15:16 Pulse Ox 96 05/17/23 15:16 FiO2 Intake & Output 05/16/23 05/17/23 05/17/23 18:59 06:59 18:59 Intake Total 440 490 Output Total 450 950 550 Balance -10 -950 -60 Intake: IV 100 10 Invasive Line 2 10 Intake, IV Titration 100 Amount Ampicillin 2,000 mg In 100 Sodium Chloride 0.9% 100 ml @ 200 mls/hr IVPB Q4HR [facility] Rx#:[id number] Oral 240 480 Output: Urine 450 950 550 Other: Voiding Method Urinal Urinal Urinal - Exam GENERAL DESCRIPTION: Middle-age male lying in bed in no distress RESPIRATORY SYSTEM: Unlabored breathing , decreased breath sounds at bases HEART: S1 S2 regular rate and rhythm , ABDOMEN: Soft , no tenderness EXTREMITIES: No edema feet - Labs CBC & Chem 7: 05/17/23 09:22 05/17/23 09:22 Labs: Abnormal Lab Results - Last 24 Hours (Table) 05/17/23 05/17/23 05/17/23 Range/Units 09: 09: 09: PT 30.7 H (9.0-12.0) sec INR 3.2 H (<1.2) Potassium 3.3 L (3.5-5.1) mmol/L Carbon Dioxide 21 L (22-30) mmol/L Glucose 104 H (74-99) mg/dL Total Bilirubin 1.4 H (0.2-1.3) mg/dL Procalcitonin 0.16 H (0.02-0.09) ng/mL Microbiology - Last 24 Hours (Table) 05/15/23 08:52 Blood Culture - Preliminary Blood 05/13/23 17:10 Blood Culture Gram Stain - Final Blood Blood Culture - Final Enterococcus faecalis 05/13/23 17:25 Blood Culture Gram Stain - Final Blood Blood Culture - Final Enterococcus faecalis Assessment and Plan (1) Bacteremia due to Enterococcus Current Visit: Yes Status: Acute Code(s): R78.81 - BACTEREMIA; B95.2 - ENTEROCOCCUS THE CAUSE OF DISEASES CLASSIFIED ELSEWHERE SNOMED Code(s): 1672531913 (2) Endocarditis Current Visit: Yes Status: Acute Code(s): I38 - ENDOCARDITIS, VALVE UNSPECIFIED SNOMED Code(s): 26007286 Plan: 1patient was in the hospital with sepsis in this patient with a fever tachycardia elevated white count now with evidence of Enterococcus faecalis bacteremia source 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 2Enterococcus faecalis bacteremia source likely endocarditis and the patient abdominal soft rectal examination and UA is negative. 3patient is status post YOVANY not very conclusive for prosthetic valve endocardit is and cardiology recommending further workup CT surgery has been consulted 4patient to continue with ampicillin 2 g every 4 along with gentamicin for synergistic and monitor his clinical course closely Patient did have multiple questions concerning this were answered in Layman terms Dictation was produced using [employer] dictation software. please excuse any grammatical, word or spelling errors. Time with Patient: Less than 30
[2023-05-17] MEDS ORDERED: WARFARIN 3 MG TAB PO ONE (18:00)
[2023-05-17] MEDS ORDERED: predniSONE 50 MG TAB PO ONE (21:00)
[2023-05-18] MEDS: SODIUM CHLORIDE 0.9% 1,000 ML IV SCH ×2 (02:20→04:28)
[2023-05-18] MEDS ORDERED: predniSONE 50 MG TAB PO ONE ×2 (03:00→09:00)
[2023-05-18] MEDS: AMPICILLIN 2,000 MG in SODIUM CHLORIDE 0.9% 100 ML IVPB SCH ×6 (03:25→23:36)
[2023-05-18] MEDS: GENTAMICIN 100 MG in SODIUM CHLORIDE 0.9% 100 ML IVPB SCH ×3 (05:25→22:25)
[2023-05-18] MEDS: PANTOPRAZOLE 40 MG TABLET PO SCH (06:38)
[2023-05-18] MEDS: METOPROLOL SUCCINATE (ER) 25 MG TAB.ER.24H PO SCH ×2 (08:07→20:35)
[2023-05-18] MEDS: ATORVASTATIN 10 MG TAB PO SCH (08:07)
[2023-05-18] MEDS: ASPIRIN 81 MG PO SCH (08:07)
[2023-05-18] MEDS: LOSARTAN 25 MG TAB PO SCH (08:07)
[2023-05-18] MEDS: FAMOTIDINE 20 MG TAB PO SCH ×2 (08:07→20:35)
[2023-05-18] MEDS: MULTIVITAMINS, THERA 1 EACH TAB PO SCH (08:07)
[2023-05-18 08:17] LABS: HCT 46.2 % (39.0-53.0); HGB 15.6 gm/dL (13.0-17.5); MCH 28.3 pg (25.0-35.0); MCHC 33.9 g/dL (31.0-37.0); MCV 83.6 fL (80.0-100.0); Mean Platelet Volume 7.4; Platelet Count 288 k/uL (150-450); RBC 5.52 m/uL (4.30-5.90); RDW 13.5 % (11.5-15.5); WBC 8.5 k/uL (3.8-10.6)
[2023-05-18 08:27] LABS: INR 3.3 (<1.2)
[2023-05-18 08:28] LABS: Prothrombin Time 32.2 sec (9.0-12.0)
[2023-05-18 08:44] LABS: African American GFR (CKD) >90 (>60 ml/min/1.73 sqM); Anion Gap 13 mmol/L; Blood Urea Nitrogen 14 mg/dL (9-20); Calcium 9.7 mg/dL (8.4-10.2); Carbon Dioxide 21 mmol/L (22-30); Chloride 104 mmol/L (98-107); Glucose 156 mg/dL (74-99); Non-African American GFR(CKD) >90 (>60 ml/min/1.73 sqM); Potassium 3.9 mmol/L (3.5-5.1); Sodium 138 mmol/L (137-145)
[2023-05-18] MEDS ORDERED: diphenhydrAMINE 25 MG CAP PO ONE (09:00)
--- NOTE | 2023-05-18 09:13 | CT ---
EXAMINATION TYPE: CT ChestAbdPelvis w con CT DLP: 2072.6 mGycm, Automated exposure control for dose reduction was used. DATE OF EXAM: 05/18/2023 8:52 AM COMPARISON: CT abdomen pelvis 04/26/2022, CTA thoracoabdominal aorta 04/13/2021 CLINICAL INDICATION:Male, 53 years old with history of eval asc aortic graft, abd; PHH, Eval aortic g raft. PATIENT HAVING NO COMPLAINTS AT TIME OF SCAN. Why was this performed as an inpatient? Technique: Multiple axial images of the chest, abdomen, and pelvis were obtained following the intrav enous administration of 100 mL Isovue-300. Two-dimensional coronal and sagittal reconstructions were obtained. Findings: CHEST: LUNGS/ PLEURA: Trace right pleural effusion. No focal consolidation or pneumothorax. AIRWAY: Patent and unremarkable.. HEART: Size within normal limits.No pericardial effusion. Postsurgical changes from aortic valvular s tent graft. Left atrial appendage occlusion device. MEDIASTINUM: No gross evidence of adenopathy. VASCULATURE: No aortic aneurysm. Ectasia of the aortic root measuring up to 3.9 cm MUSCULOSKELETAL: No acute osseous abnormalities. Median sternotomy wires. SOFT TISSUES/LYMPH NODES: Minimal bilateral gynecomastia. LOWER NECK: No significant findings. ABDOMEN: ABDOMEN LIVER: Diffusely hypoattenuating parenchyma. Stable subcentimeter hypodense right hepatic lobe focus which is too small characters but likely represents a cyst. GALLBLADDER AND BILE DUCTS: Cholelithiasis with contracted gallbladder. No biliary ductal dilatation. PANCREAS: Unremarkable. SPLEEN: Unremarkable. ADRENAL GLANDS: Unremarkable. KIDNEYS AND URETERS: No evidence of hydronephrosis or renal calculus. The kidneys enhance symmetrical ly. Contrast is demonstrated within both collecting systems on the delayed phase. PELVIS BLADDER: Under distended, limiting evaluation. REPRODUCTIVE: Unremarkable. ABDOMEN & PELVIS STOMACH AND BOWEL: Stomach and duodenum are unremarkable. No focal bowel wall thickening or surroundi ng inflammatory changes. Post surgical changes from appendectomy. No evidence of bowel obstruction. PERITONEUM: No evidence of pneumoperitoneum or free fluid. VASCULATURE: No evidence of aortic aneurysm. MUSCULOSKELETAL: No acute osseous abnormalities LYMPH NODES: No gross evidence for lymphadenopathy. SOFT TISSUE/ABDOMINAL WALL: Bilateral fat filled inguinal hernias. IMPRESSION: 1. Postsurgical changes from aortic valvular repair. Ectasia of the aortic root measuring up to 3.9 cm which is relatively stable from prior exam. 2. Trace right pleural effusion. 3. No acute process within the abdomen/ pelvis. 4. Hepatic steatosis. 5. Cholelithiasis.
--- NOTE | 2023-05-18 09:18 | P.PN ---
Subjective Progress Note Date: 05/18/23 Principal diagnosis: Bacteremia with enterococcus faecalis, sepsis with concern for infective endocarditis of the mechanical valve. History of unicuspid aortic valve with severe aortic regurgitation status post On-X mechanical aortic valve replacement with ascending aortic replacement in February 2021, CVA 2, hypertension, hyperlipidemia, kidney stones with removal, previous tobacco dependence The patient was seen and examined this morning sitting up in a recliner, cardiac acute distress. States he feels significantly better. Denies any chest pain or shortness of breath. Remains in sinus rhythm, on room air, hemoglobin is stable. Labs reviewed, WBC 8.5, blood cultures from 05/15 and 05/16 preliminarily negative. Remains on ampicillin and gentamicin per infectious disease. Dr. Herman did see the patient yesterday and discussed the case in detail with Dr. Hua. Recommends CTA of the chest abdomen and pelvis to be completed today to look for infectious source of the ascending aortic graft as well as any septic emboli. No immediate/emergent surgical intervention recommended currently although will continue to monitor clinical course. Objective - Vital Signs Vital signs: Vital Signs Temp 98.7 F 05/18/23 08:05 Pulse 87 05/18/23 08:05 Resp 18 05/18/23 08:05 BP 145/81 05/18/23 08:05 Pulse Ox 98 05/18/23 08:48 FiO2 21 05/18/23 08:48 Intake & Output 05/17/23 05/18/23 05/18/23 18:59 06:59 18:59 Intake Total 490 240 Output Total 825 1825 Balance -335 1585 Intake: IV 10 Invasive Line 2 10 Oral 480 240 Output: Urine 825 1825 Other: Voiding Method Urinal Urinal - Exam CONSTITUTIONAL: Appears comfortable, cooperative, no acute distress RESPIRATORY: Lungs sounds diminished bilaterally. Respirations even, nonlabored. Currently on room air with oxygen saturation 96% CARDIOVASCULAR: S1, S2 present. Regular rate and rhythm, sinus rhythm on telemetry. Sternum stable. Palpable peripheral pulses bilaterally. No edema present GASTROINTESTINAL: Abdomen soft, nontender, nondistended. Active bowel sounds present 4 quadrants. Tolerating diet GENITOURINARY: Continues to void clear yellow urine, output 2650 mL the last 24 hours INTEGUMENTARY: Skin is warm and dry NEUROLOGIC: Cranial nerves II through XII intact MUSKULOSKELETAL: Able to move all extremities, strength equal bilaterally, gait normal PSYCHIATRIC: Alert and oriented to person place and time, appropriate affect, intact judgment and insight - Allied health notes Allied health notes reviewed: nursing - Labs CBC & Chem 7: 05/18/23 07:35 05/18/23 07:35 Labs: Abnormal Lab Results - Last 24 Hours (Table) 05/17/23 05/17/23 05/17/23 Range/Units 09:22 09:22 09:22 PT 30.7 H (9.0-12.0) sec INR 3.2 H (<1.2) Potassium 3.3 L (3.5-5.1) mmol/L Carbon Dioxide 21 L (22-30) mmol/L Glucose 104 H (74-99) mg/dL Total Bilirubin 1.4 H (0.2-1.3) mg/dL Procalcitonin 0.16 H (0.02-0.09) ng/mL 05/18/23 05/18/23 Range/Units 07:35 07:35 PT 32.2 H (9.0-12.0) sec INR 3.3 H (<1.2) Potassium (3.5-5.1) mmol/L Carbon Dioxide 21 L (22-30) mmol/L Glucose 156 H (74-99) mg/dL Total Bilirubin (0.2-1.3) mg/dL Procalcitonin (0.02-0.09) ng/mL Microbiology - Last 24 Hours (Table) 05/16/23 09:13 Blood Culture - Preliminary Blood 05/15/23 08:52 Blood Culture - Preliminary Blood Assessment and Plan Assessment: Bacteremia with enterococcus faecalis Sepsis with concern for infective endocarditis of the mechanical valve History of unicuspid aortic valve with severe aortic regurgitation status post On-X mechanical aortic valve replacement with ascending aortic replacement in February 2021 CVA 2 History of hypertension Hyperlipidemia Kidney stones with removal Previous tobacco dependence Plan: Continue antibiotics per infectious disease Review CT of the chest No emergent/immediate surgical intervention planned Medical management of other comorbidities per internal medicine More recommendations to follow
--- NOTE | 2023-05-18 16:15 | P.PN ---
Progress Note - Text Progress Note Date: 05/18/23 Chief Complaint: Feeling unwell This is a very pleasant 53-year-old patient follows with Dr. Shannon. Chronic stable medical conditions include hypertension, hyperlipidemia, cardiomyopathy EF of about 30-35%. 4 unicuspid aortic valve with severe aortic regurgitation. 03/04/21 underwent aortic valve replacement with a mechanical valve by Dr. Heaton. Cardiac catheterization - normal coronaries. Patient follows with Dr. Lezama note of Ays[facility] Mason. Patient is doing well up to yesterday afternoon. Started feeling unwell. Chills. Decreased appetite. Some shortness of breath. Tired rundown. Given the ER. Started spiking fevers. Was given IV ceftriaxone and vancomycin the ER. ID was consulted. On night patient continued to spike fever. Denies any cough. No chest pain. No urinary symptoms. Chills and rigors. Accompanied by his at the bedside. Patient had 1 episode of diarrhea yesterday. No abdominal pain. Recently patient had a hematuria and passage of stone. May 15: Seen this morning. at the bedside. Weak tired. No fever since yesterday evening. Headache. Per cardiology for YOVANY tomorrow. On IV ampicillin and gentamicin. Blood cultures growing group D enterococcus. Repeat blood cultures ordered. May 16: Underwent YOVANY today. Questionable regurgitation. Versus artifact. Postprocedure patient is sleepy. Discussed with Dr. Boggs. We'll consult cardiothoracic for their opinion. No fever since overnight. Blood cultures growing enterococcus. Sensitive to penicillin. May 17: Discussed with the patient and . No evidence of UTI on this admission. Patient did have a UTI about 2 weeks ago. Discussed with ID Dr. Hernández. Strong suspicion surgery remains for infective endocarditis. Did discuss with Dr. Boggs from cardiology. Dr. Hernández to speak to Dr. Heaotn from cardiothoracic surgery. Meantime patient is doing much better. No fever. Appetite improving. Total time spent today about 50 minutes with over 30 minutes of discussion. May 18: No fever. Eating well. Computed tomography scan abdomen and pelvis unremarkable. He followed by cardiogenic, cardiothoracic surgery, ID. Repeat blood cultures negative to rule out. Active Medications Acetaminophen (Acetaminophen Tab 325 Mg Tab) 650 mg PO Q6HR PRN PRN Reason: Mild Pain or Fever > 100.5 Last Admin: 05/17/23 05:19 Dose: 650 mg Alprazolam (Alprazolam 0.25 Mg Tab) 0.25 mg PO Q6HR PRN PRN Reason: Anxiety Last Admin: 05/17/23 23:41 Dose: 0.25 mg Aspirin (Aspirin 81 Mg) 81 mg PO DAILY [facility] Last Admin: 05/18/23 08:07 Dose: 81 mg Atorvastatin Calcium (Atorvastatin 10 Mg Tab) 10 mg PO DAILY [facility] Last Admin: 05/18/23 08:07 Dose: 10 mg Baclofen (Baclofen 10 Mg Tab) 5 mg PO TID PRN PRN Reason: Muscle Spasm Calcium Carbonate/Glycine (Calcium Carbonate 500 Mg Chewable) 1,000 mg PO Q4HR PRN PRN Reason: Dyspepsia Famotidine (Famotidine 20 Mg Tab) 20 mg PO BID [facility] Last Admin: 05/18/23 08:07 Dose: 20 mg Ampicillin Sodium 2,000 mg/ (Sodium Chloride) 100 mls @ 200 mls/hr IVPB Q4HR [facility]; Protocol Last Admin: 05/18/23 12:15 Dose: 200 mls/hr Gentamicin Sulfate 100 mg/ (Sodium Chloride) 102.5 mls @ 102.5 mls/hr IVPB Q8H [facility] Last Admin: 05/18/23 15:37 Dose: 102.5 mls/hr Sodium Chloride (Saline 0.9%) 1,000 mls @ 50 mls/hr IV .Q20H [facility] Last Admin: 05/18/23 04:28 Dose: 50 mls/hr Lactulose (Lactulose 20 Gm/30 Ml Cup) 20 gm PO DAILY PRN PRN Reason: Constipation Losartan Potassium (Losartan 25 Mg Tab) 25 mg PO DAILY [facility] Last Admin: 05/18/23 08:07 Dose: 25 mg Melatonin (Melatonin 3 Mg Tablet) 3 mg PO HS PRN PRN Reason: Insomnia Last Admin: 05/17/23 23:41 Dose: 3 mg Metoprolol Succinate (Metoprolol Succinate (Er) 25 Mg Tab.Er.24h) 25 mg PO BID [facility] Last Admin: 05/18/23 08:07 Dose: 25 mg Miscellaneous Information (Warfarin Per Pharmacy) 0 each MISCELLANE DIRECTED PRN PRN Reason: PER PROTOCOL Multivitamins (Multivitamins, Thera 1 Each Tab) 1 each PO DAILY [facility] Last Admin: 05/18/23 08:07 Dose: 1 each Naloxone HCl (Naloxone 0.4 Mg/Ml 1 Ml Vial) 0.2 mg IV Q2M PRN PRN Reason: Opioid Reversal Ondansetron HCl (Ondansetron 4 Mg/2 Ml Vial) 4 mg IVP Q8HR PRN PRN Reason: Nausea And Vomiting Last Admin: 05/13/23 22:15 Dose: 4 mg Pantoprazole Sodium (Pantoprazole 40 Mg Tablet) 40 mg PO AC-BRKFST [facility] Last Admin: 05/18/23 06:38 Dose: 40 mg Warfarin Sodium (Warfarin 7.5 Mg Tab) 7.5 mg PO ONCE@1800 ONE; Protocol Stop: 05/18/23 18:01 Past medical history to include: Unicuspid aortic valve and severe AR leading to Mechanical aortic valve on February 2021 on Coumadin, hypertension, hyperlipidemia, normal cardiac catheterization, EF 30-35% Social history: No alcohol. stopped smoking in August 2020. Breathing about half a pack per week. 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 . Physical examination: VITAL SIGNS: 98.7, 87, 18, 135/81, 95% room air GENERAL: Laying in bed, comfortable EYES: Pupils equal. Conjunctiva normal. HEENT: External appearance of nose and ears normal, oral cavity grossly normal. NECK: JVD not raised; masses not palpable. HEART: Mechanical heart sound; no edema. LUNGS: Respiratory rate increased; clear to auscultation. ABDOMEN: Soft, nontender, liver spleen not palpable, no masses palpable. PSYCH: Sleepy answering some questions INVESTIGATIONS, reviewed in the clinical context: CT abdomen and chest dullness with contrast: Gallstones with contracted gallbladder. Aortic valve repair at [facility] off aortic root measuring 3.9 cm stable from previous exam. Hepatic steatosis. May 18: Obese 8.5 hemoglobin 15.6 platelets 288 INR 3.3 potassium 3.9 creatinine 0.7 to May 17: White count 7.1 hemoglobin 14.4 platelets 201 INR 3.2 potassium 3.3 creatinine 0.66. Procalcitonin 0.16 YOVANY: Questionable vegetation versus artifact. Blood culture [May 13]: Enterococcus faecalis. [May 15: Pending EKG tracing personally reviewed by me-sinus tachycardia. Rate 121. Some ST segment depression. May 13: White count 12.8 hemoglobin 15.7 platelets 211 INR 3.8 potassium 3.8 creatinine 0.92 Troponin I less than 0.012 UA: Negative for nitrite and leukoesterase Influenza type A, B, RSV, COVID-19: Not detected Chest x-ray film personally reviewed by me-no obvious infiltrate Assessment and plan: -Severe sepsis. Probable acute infective endocolitis of the mechanical valve.: Improving Blood cultures positive-Enterococcus faecalis.. IV ampicillin and IV gentamicin. ID and cardiology following YOVANY: Vegetation versus artifact. CT abdomen pelvis: No other source of infection Cardiothoracic surgery, cardiology, ID following. -Mechanical aortic valve on 03/04/2021, for unicuspid aortic valve and severe aortic regurgitation by Dr. Heaton. Continue with Coumadin. Cardiothoracic surgery following -Hepatic steatosis -Gallstones, asymptomatic -Coumadin monitoring Pharmacy to dose -Toxic cephalgia: Better Local measures discussed. Treat underlying condition. -Chronic insomnia for medical condition -Hyperlipidemia Rosuvastatin -Chronic nonischemic cardiomyopathy from aortic valve disorder, EF 30-35% -Essential hypertension Toprol-XL 25 mg twice a day, Cozaar 25 mg a day Discussed with patient. Continue IV antibiotics. Follow with cardiology team.
--- NOTE | 2023-05-18 17:29 | P.PN ---
Subjective Progress Note Date: 05/18/23 Principal diagnosis: Enterococcus bacteremia and concern for endocarditis Patient is a 53-year-old male with a past medical history significant for hypertension depression CVA TIA did have a aortic valve replacement with mechanical valve on 03/04/2021 patient now presenting to [facility] ER for evaluation of shortness of breath headache not feeling well and a fever , recently did have urinary problems with hematuria and passage of the stone. Patient is status post YOVANY completed on 05/16/2023 with evidence of mitral valve endocarditis On today's evaluation that is 05/18/2023, the patient remains to be afebrile, the patient is breathing comfortably , the patient denies having any chest pain or cough, the patient denies nausea and vomiting no abdominal pain and no diarrhea Patient did have a white count of 8.5, creatinine 0.72, blood culture with enter ococcus faecalis, blood culture repeat 05/15/2023, 05/16/2023 and 05/17/2023 on so far negative , patient did have CT of the chest abdominal pelvis did not mention any focus of infection Objective - Vital Signs Vital signs: Vital Signs Temp 98.7 F 05/18/23 08:05 Pulse 87 05/18/23 08:05 Resp 18 05/18/23 08:05 BP 145/81 05/18/23 08:05 Pulse Ox 98 05/18/23 08:48 FiO2 21 05/18/23 08:48 Intake & Output 05/17/23 05/18/23 05/18/23 18:59 06:59 18:59 Intake Total 490 240 480 Output Total 825 1825 Balance -335 -2501 480 Intake: IV 10 Invasive Line 2 10 Oral 480 240 480 Output: Urine 825 1825 Other: Voiding Method Urinal Urinal - Exam GENERAL DESCRIPTION: Middle-age male lying in bed in no distress RESPIRATORY SYSTEM: Unlabored breathing , decreased breath sounds at bases HEART: S1 S2 regular rate and rhythm , ABDOMEN: Soft , no tenderness EXTREMITIES: No edema feet - Labs CBC & Chem 7: 05/18/23 07:35 05/18/23 07:35 Labs: Abnormal Lab Results - Last 24 Hours (Table) 05/17/23 05/17/23 05/17/23 Range/Units 09:22 09:22 09:22 PT 30.7 H (9.0-12.0) sec INR 3.2 H (<1.2) Potassium 3.3 L (3.5-5.1) mmol/L Carbon Dioxide 21 L (22-30) mmol/L Glucose 104 H (74-99) mg/dL Total Bilirubin 1.4 H (0.2-1.3) mg/dL Procalcitonin 0.16 H (0.02-0.09) ng/mL 05/18/23 05/18/23 Range/Units 07:35 07:35 PT 32.2 H (9.0-12.0) sec INR 3.3 H (<1.2) Potassium (3.5-5.1) mmol/L Carbon Dioxide 21 L (22-30) mmol/L Glucose 156 H (74-99) mg/dL Total Bilirubin (0.2-1.3) mg/dL Procalcitonin (0.02-0.09) ng/mL Microbiology - Last 24 Hours (Table) 05/16/23 09:13 Blood Culture - Preliminary Blood 05/15/23 08:52 Blood Culture - Preliminary Blood Assessment and Plan (1) Bacteremia due to Enterococcus Current Visit: Yes Status: Acute Code(s): R78.81 - BACTEREMIA; B95.2 - ENTEROCOCCUS THE CAUSE OF DISEASES CLASSIFIED ELSEWHERE SNOMED Code(s): 0224576959 (2) Endocarditis Current Visit: Yes Status: Acute Code(s): I38 - ENDOCARDITIS, VALVE UNSPECIFIED SNOMED Code(s): 19037131 Plan: 1patient was in the hospital with sepsis in this patient with a fever tachycardia elevated white count now with evidence of Enterococcus faecalis bacteremia source likely prosthetic aortic valve endocarditis. 2Enterococcus faecalis bacteremia source likely endocarditis and the patient abdominal soft rectal examination and UA is negative. 3patient is status post YOVANY not very conclusive for prosthetic valve endocarditis and cardiology recommending further workup, patient did have a CT of the chest abdominal pelvis did not show any focus of infection, clinically suspicious for endocarditis remains to be high 4patient seemed to have cleared his bacteremia, patient to continue with ampicillin 2 g every 4 along with gentamicin for synergistic and monitor his clinical course closely Dictation was produced using [email or web address] dictation software. please excuse any grammatical, word or spelling errors. Time with Patient: Less than 30
[2023-05-18] MEDS ORDERED: WARFARIN 7.5 MG TAB PO ONE (18:00)
[2023-05-18] MEDS: ALPRAZolam 0.25 MG TAB PO PRN (23:40)
--- NOTE | 2023-05-19 06:02 | PN ---
PROGRESS NOTE Mr. Aguirre is a 53-year-old gentleman admitted with a known history of aortic valve replacement with mechanical valve in 2020 for a unicuspid aortic valve and repair of ascending aorta. He came in with a febrile status, but over the last 24 hours, he is afebrile and the blood cultures are negative for nearly 48 hours. He is resting comfortably without symptoms. There was a question of vegetation, but on looking at the report by Dr. Hua, it seems to be more likely an artifact. I do not believe we are dealing with active endocarditis at least based on the current data. However, I will await further input from Infectious Disease and Cardiac Surgery. Vitals are stable. The patient is afebrile. He remains in a sinus rhythm with a short systolic murmur and prosthetic valve clicks audible. Lungs revealed decent air entry. Abdomen and lower extremity exam otherwise is unchanged. Plan is to continue current medications and await further input from Infectious Diseases and Cardiac Surgery. I do not believe there is any convincing evidence of endocarditis and he has been afebrile for 24 hours and blood cultures are negative for 24 hours. Prior to that he did have enterococcus faecalis. No new suggestions. MMODL / IJN: [id number] /
[2023-05-19] MEDS: AMPICILLIN 2,000 MG in SODIUM CHLORIDE 0.9% 100 ML IVPB SCH ×6 (06:25→23:07)
[2023-05-19] MEDS: GENTAMICIN 100 MG in SODIUM CHLORIDE 0.9% 100 ML IVPB SCH ×3 (06:25→21:25)
[2023-05-19] MEDS: PANTOPRAZOLE 40 MG TABLET PO SCH (06:53)
[2023-05-19] MEDS: ATORVASTATIN 10 MG TAB PO SCH (08:15)
[2023-05-19] MEDS: FAMOTIDINE 20 MG TAB PO SCH ×2 (08:15→20:55)
[2023-05-19] MEDS: METOPROLOL SUCCINATE (ER) 25 MG TAB.ER.24H PO SCH ×2 (08:15→20:55)
[2023-05-19] MEDS: ASPIRIN 81 MG PO SCH (08:15)
[2023-05-19] MEDS: MULTIVITAMINS, THERA 1 EACH TAB PO SCH (08:15)
[2023-05-19] MEDS: LOSARTAN 25 MG TAB PO SCH (08:15)
[2023-05-19 09:15] LABS: INR 3.3 (<1.2); Prothrombin Time 31.8 sec (9.0-12.0)
--- NOTE | 2023-05-19 09:46 | P.PN ---
Subjective Progress Note Date: 05/19/23 Principal diagnosis: Bacteremia with enterococcus faecalis, sepsis with concern for infective endocarditis of the mechanical valve. History of unicuspid aortic valve with severe aortic regurgitation status post On-X mechanical aortic valve replacement with ascending aortic replacement in February 2021, CVA 2, hypertension, hyperlipidemia, kidney stones with removal, previous tobacco dependence The patient was seen and examined this morning with Dr. Herman sitting up in bed in no acute distress. States he continues to feel significantly better. Denies any chest pain or shortness of breath. Remains in sinus rhythm, on room air. Labs reviewed, blood cultures from 05/15, 05/16, 05/17 preliminarily negative. Remains on ampicillin and gentamicin per infectious disease. CTA of the chest abdomen and pelvis reviewed with Dr. Herman and discussed this morning with the patient, no evidence of emboli or infection. No surgical intervention recommended currently although will continue to monitor clinical course. Objective - Vital Signs Vital signs: Vital Signs Temp 97.9 F 05/19/23 08:08 Pulse 90 05/19/23 08:08 Resp 18 05/19/23 08:08 BP 148/86 05/19/23 08:08 Pulse Ox 98 05/19/23 08:08 FiO2 21 05/18/23 08:48 Intake & Output 05/18/23 05/19/23 05/19/23 18:59 06:59 18:59 Intake Total 1440 250 240 Output Total 410 475 Balance 1030 -225 240 Intake: Intake, IV Titration 250 Amount Ampicillin 2,000 mg In 100 Sodium Chloride 0.9% 100 ml @ 200 mls/hr IVPB Q4HR [facility] Rx#:[id number] Gentamicin 100 mg In 100 Sodium Chloride 0.9% 100 ml @ 102.5 mls/hr IVPB Q8H [facility] Rx#:[id number] Sodium Chloride 0.9% 1, 50 000 ml @ 50 mls/hr IV . Q20H [facility] Rx#:[id number] Oral 1440 240 Output: Urine 410 475 Other: Voiding Method Urinal Urinal - Exam CONSTITUTIONAL: Appears comfortable, cooperative, no acute distress RESPIRATORY: Lungs sounds diminished bilaterally. Respirations even, nonlabored. Currently on room air with oxygen saturation 97% CARDIOVASCULAR: S1, S2 present. Regular rate and rhythm, sinus rhythm on telemetry. Sternum stable. Palpable peripheral pulses bilaterally. No edema present GASTROINTESTINAL: Abdomen soft, nontender, nondistended. Active bowel sounds present 4 quadrants. Tolerating diet GENITOURINARY: Continues to void INTEGUMENTARY: Skin is warm and dry NEUROLOGIC: Cranial nerves II through XII intact MUSKULOSKELETAL: Able to move all extremities, strength equal bilaterally, gait normal PSYCHIATRIC: Alert and oriented to person place and time, appropriate affect, intact judgment and insight - Labs CBC & Chem 7: 05/18/23 07:35 05/18/23 07:35 Labs: Abnormal Lab Results - Last 24 Hours (Table) 05/19/23 Range/Units 08:11 PT 31.8 H (9.0-12.0) sec INR 3.3 H (<1.2) Microbiology - Last 24 Hours (Table) 05/17/23 09:22 Blood Culture - Preliminary Blood 05/16/23 09:13 Blood Culture - Preliminary Blood 05/15/23 08:52 Blood Culture - Preliminary Blood - Imaging and Cardiology CT scan - chest: report reviewed, image reviewed CT Scan - head: report reviewed, image reviewed CT scan - pelvis: report reviewed, image reviewed Assessment and Plan Assessment: Bacteremia with enterococcus faecalis Sepsis with concern for infective endocarditis of the mechanical valve History of unicuspid aortic valve with severe aortic regurgitation status post On-X mechanical aortic valve replacement with ascending aortic replacement in February 2021 CVA 2 History of hypertension Hyperlipidemia Kidney stones with removal Previous tobacco dependence Plan: Continue antibiotics per infectious disease No emergent/immediate surgical intervention planned Medical management of other comorbidities per internal medicine More recommendations to follow
--- NOTE | 2023-05-19 16:23 | P.PN ---
Progress Note - Text Progress Note Date: 05/19/23 Chief Complaint: Feeling unwell This is a very pleasant 53-year-old patient follows with Dr. Shannon. Chronic stable medical conditions include hypertension, hyperlipidemia, cardiomyopathy EF of about 30-35%. 4 unicuspid aortic valve with severe aortic regurgitation. 03/04/21 underwent aortic valve replacement with a mechanical valve by Dr. Heaton. Cardiac catheterization - normal coronaries. Patient follows with Dr. Lezama note of Aysha Mason. Patient is doing well up to yesterday afternoon. Started feeling unwell. Chills. Decreased appetite. Some shortness of breath. Tired rundown. Given the ER. Started spiking fevers. Was given IV ceftriaxone and vancomycin the ER. ID was consulted. On night patient continued to spike fever. Denies any cough. No chest pain. No urinary symptoms. Chills and rigors. Accompanied by his at the bedside. Patient had 1 episode of diarrhea yesterday. No abdominal pain. Recently patient had a hematuria and passage of stone. May 15: Seen this morning. at the bedside. Weak tired. No fever since yesterday evening. Headache. Per cardiology for YOVANY tomorrow. On IV ampicillin and gentamicin. Blood cultures growing group D enterococcus. Repeat blood cultures ordered. May 16: Underwent YOVANY today. Questionable regurgitation. Versus artifact. Postprocedure patient is sleepy. Discussed with Dr. Boggs. We'll consult cardiothoracic for their opinion. No fever since overnight. Blood cultures growing enterococcus. Sensitive to penicillin. May 17: Discussed with the patient and . No evidence of UTI on this admission. Patient did have a UTI about 2 weeks ago. Discussed with ID Dr. Hernández. Strong suspicion surgery remains for infective endocarditis. Did discuss with Dr. Boggs from cardiology. Dr. Hernández to speak to Dr. Heaton from cardiothoracic surgery. Meantime patient is doing much better. No fever. Appetite improving. Total time spent today about 50 minutes with over 30 minutes of discussion. May 18: No fever. Eating well. Computed tomography scan abdomen and pelvis unremarkable. He followed by cardiogenic, cardiothoracic surgery, ID. Repeat blood cultures negative to rule out. May 19: Feeling well. Oral intake good. No further fever or white count. Her minutes and IV Unasyn and IV gentamicin. Discussed with ID. Suspicion for acute infective carditis still high. No other source of infection. Discussed with the patient about 4-6 weeks of IV antibiotic. Patient will be followed by cardiology and cardiothoracic surgery. No surgical intervention of the present time per surgery. ID is also following. Active Medications Acetaminophen (Acetaminophen Tab 325 Mg Tab) 650 mg PO Q6HR PRN PRN Reason: Mild Pain or Fever > 100.5 Last Admin: 05/17/23 05:19 Dose: 650 mg Alprazolam (Alprazolam 0.25 Mg Tab) 0.25 mg PO Q6HR PRN PRN Reason: Anxiety Last Admin: 05/18/23 23:40 Dose: 0.25 mg Aspirin (Aspirin 81 Mg) 81 mg PO DAILY [facility] Last Admin: 05/19/23 08:15 Dose: 81 mg Atorvastatin Calcium (Atorvastatin 10 Mg Tab) 10 mg PO DAILY [facility] Last Admin: 05/19/23 08:15 Dose: 10 mg Baclofen (Baclofen 10 Mg Tab) 5 mg PO TID PRN PRN Reason: Muscle Spasm Calcium Carbonate/Glycine (Calcium Carbonate 500 Mg Chewable) 1,000 mg PO Q4HR PRN PRN Reason: Dyspepsia Famotidine (Famotidine 20 Mg Tab) 20 mg PO BID [facility] Last Admin: 05/19/23 08:15 Dose: 20 mg Ampicillin Sodium 2,000 mg/ (Sodium Chloride) 100 mls @ 200 mls/hr IVPB Q4HR [facility]; Protocol Last Admin: 05/19/23 11:48 Dose: 200 mls/hr Gentamicin Sulfate 100 mg/ (Sodium Chloride) 102.5 mls @ 102.5 mls/hr IVPB Q8H [facility] Last Admin: 05/19/23 06:25 Dose: Not Given Sodium Chloride (Saline 0.9%) 1,000 mls @ 50 mls/hr IV .Q20H [facility] Last Admin: 05/18/23 04:28 Dose: 50 mls/hr Lactulose (Lactulose 20 Gm/30 Ml Cup) 20 gm PO DAILY PRN PRN Reason: Constipation Losartan Potassium (Losartan 25 Mg Tab) 25 mg PO DAILY [facility] Last Admin: 05/19/23 08:15 Dose: 25 mg Melatonin (Melatonin 3 Mg Tablet) 3 mg PO HS PRN PRN Reason: Insomnia Last Admin: 05/17/23 23:41 Dose: 3 mg Metoprolol Succinate (Metoprolol Succinate (Er) 25 Mg Tab.Er.24h) 25 mg PO BID [facility] Last Admin: 05/19/23 08:15 Dose: 25 mg Miscellaneous Information (Warfarin Per Pharmacy) 0 each MISCELLANE DIRECTED PRN PRN Reason: PER PROTOCOL Miscellaneous Information (Gentamicin Trough Due 1 Each Misc) 0 each MISCELLANE DIRECTED ONE Stop: 05/20/23 13:31 Miscellaneous Information (Gentamicin Peak Due 1 Each Misc) 0 each MISCELLANE DIRECTED ONE Stop: 05/20/23 16:01 Multivitamins (Multivitamins, Thera 1 Each Tab) 1 each PO DAILY [facility] Last Admin: 05/19/23 08:15 Dose: 1 each Naloxone HCl (Naloxone 0.4 Mg/Ml 1 Ml Vial) 0.2 mg IV Q2M PRN PRN Reason: Opioid Reversal Ondansetron HCl (Ondansetron 4 Mg/2 Ml Vial) 4 mg IVP Q8HR PRN PRN Reason: Nausea And Vomiting Last Admin: 05/13/23 22:15 Dose: 4 mg Pantoprazole Sodium (Pantoprazole 40 Mg Tablet) 40 mg PO AC-BRKFST [facility] Last Admin: 05/19/23 06:53 Dose: 40 mg Warfarin Sodium (Warfarin 7.5 Mg Tab) 7.5 mg PO ONCE@1800 ONE; Protocol Stop: 05/19/23 18:01 Past medical history to include: Unicuspid aortic valve and severe AR leading to Mechanical aortic valve on February 2021 on Coumadin, hypertension, hyperlipidemia, normal cardiac catheterization, EF 30-35% Social history: No alcohol. stopped smoking in August 2020. Breathing about half a pack per week. 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 . Physical examination: VITAL SIGNS: 97.9, 68, 18, 149/80, 98% room air GENERAL: Sitting of age of the bed comfortable EYES: Pupils equal. Conjunctiva normal. HEENT: External appearance of nose and ears normal, oral cavity grossly normal. NECK: JVD not raised; masses not palpable. HEART: Mechanical heart sound; no edema. LUNGS: Respiratory rate normal; clear to auscultation. ABDOMEN: Soft, nontender, liver spleen not palpable, no masses palpable. PSYCH: Sleepy answering some questions INVESTIGATIONS, reviewed in the clinical context: CT abdomen and chest dullness with contrast: Gallstones with contracted gallbladder. Aortic valve repair at [facility] off aortic root measuring 3.9 cm stable from previous exam. Hepatic steatosis. May 18: Obese 8.5 hemoglobin 15.6 platelets 288 INR 3.3 potassium 3.9 creatinine 0.7 to May 17: White count 7.1 hemoglobin 14.4 platelets 201 INR 3.2 potassium 3.3 creatinine 0.66. Procalcitonin 0.16 YOVANY: Questionable vegetation versus artifact. Blood culture [May 13]: Enterococcus faecalis. [May 15: Pending EKG tracing personally reviewed by me-sinus tachycardia. Rate 121. Some ST segment depression. May 13: White count 12.8 hemoglobin 15.7 platelets 211 INR 3.8 potassium 3.8 creatinine 0.92 Troponin I less than 0.012 UA: Negative for nitrite and leukoesterase Influenza type A, B, RSV, COVID-19: Not detected Chest x-ray film personally reviewed by me-no obvious infiltrate Assessment and plan: -Severe sepsis. Probable acute infective endocolitis of the mechanical valve.: Responding well. Blood cultures positive-Enterococcus faecalis.. IV ampicillin and IV gentamicin. YOVANY: Vegetation versus artifact. CT abdomen pelvis: No other source of infection Cardiothoracic surgery, cardiology, ID following. -Mechanical aortic valve on 03/04/2021, for unicuspid aortic valve and severe aortic regurgitation by Dr. Heaton. Continue with Coumadin. Cardiothoracic surgery following -Hepatic steatosis -Gallstones, asymptomatic -Coumadin monitoring Pharmacy to dose -Toxic cephalgia: Better Local measures discussed. Treat underlying condition. -Chronic insomnia for medical condition -Hyperlipidemia Rosuvastatin -Chronic nonischemic cardiomyopathy from aortic valve disorder, EF 30-35% -Essential hypertension Toprol-XL 25 mg twice a day, Cozaar 25 mg a day Discussed with patient. An ID. 4 PICC line for prolonged antibiotics. Discussed at length with the patient. He will follow up outpatient ID, surgery, cardiac thoracic team.
--- NOTE | 2023-05-19 16:26 | P.PN ---
Subjective Progress Note Date: 05/19/23 Principal diagnosis: Enterococcus bacteremia and concern for endocarditis Patient is a 53-year-old male with a past medical history significant for hypertension depression CVA TIA did have a aortic valve replacement with mechanical valve on 03/04/2021 patient now presenting to [facility] ER for evaluation of shortness of breath headache not feeling well and a fever , recently did have urinary problems with hematuria and passage of the stone. Patient is status post YOVANY completed on 05/16/2023 with evidence of mitral valve endocarditis On today's evaluation that is 05/19/2023, the patient denies any fever or any chills, the patient is breathing comfortably , the patient denies chest pain or cough, the patient denies nausea and vomiting no abdominal pain and no diarrhea has been reported Patient did have a white count of 8.5, creatinine 0.72 as of yesterday no CBC or BMP was done today, blood culture with enterococcus faecalis, blood culture repeat 05/15/2023, 05/16/2023 and 05/17/2023 on so far negative , patient did have CT of the chest abdominal pelvis did not mention any focus of infection Objective - Vital Signs Vital signs: Vital Signs Temp 97.9 F 05/19/23 08:08 Pulse 68 05/19/23 11:57 Resp 18 05/19/23 11:57 BP 149/80 05/19/23 11:57 Pulse Ox 98 05/19/23 11:57 FiO2 21 05/18/23 08:48 Intake & Output 05/18/23 05/19/23 05/19/23 18:59 06:59 18:59 Intake Total 1440 250 240 Output Total 410 475 400 Balance 1030 -225 -160 Intake: Intake, IV Titration 250 Amount Ampicillin 2,000 mg In 100 Sodium Chloride 0.9% 100 ml @ 200 mls/hr IVPB Q4HR [facility] Rx#:[id number] Gentamicin 100 mg In 100 Sodium Chloride 0.9% 100 ml @ 102.5 mls/hr IVPB Q8H [facility] Rx#:[id number] Sodium Chloride 0.9% 1, 50 000 ml @ 50 mls/hr IV . Q20H [facility] Rx#:[id number] Oral 1440 240 Output: Urine 410 475 400 Other: Voiding Method Urinal Urinal Urinal - Exam GENERAL DESCRIPTION: Middle-age male lying in bed in no distress RESPIRATORY SYSTEM: Unlabored breathing , decreased breath sounds at bases HEART: S1 S2 regular rate and rhythm , ABDOMEN: Soft , no tenderness EXTREMITIES: No edema feet - Labs CBC & Chem 7: 05/18/23 07:35 05/18/23 07:35 Labs: Abnormal Lab Results - Last 24 Hours (Table) 05/19/23 Range/Units 08:11 PT 31.8 H (9.0-12.0) sec INR 3.3 H (<1.2) Microbiology - Last 24 Hours (Table) 05/17/23 09:22 Blood Culture - Preliminary Blood 05/16/23 09:13 Blood Culture - Preliminary Blood 05/15/23 08:52 Blood Culture - Preliminary Blood Assessment and Plan (1) Bacteremia due to Enterococcus Current Visit: Yes Status: Acute Code(s): R78.81 - BACTEREMIA; B95.2 - ENTEROCOCCUS THE CAUSE OF DISEASES CLASSIFIED ELSEWHERE SNOMED Code(s): 8724594310 (2) Endocarditis Current Visit: Yes Status: Acute Code(s): I38 - ENDOCARDITIS, VALVE UNSPECIFIED SNOMED Code(s): 12314280 Plan: 1patient was in the hospital with sepsis in this patient with a fever tachycardia elevated white count now with evidence of Enterococcus faecalis bacteremia source likely prosthetic aortic valve endocarditis. 2Enterococcus faecalis bacteremia source likely endocarditis and the patient ab dominal soft rectal examination and UA is negative. 3patient is status post YOVANY not very conclusive for prosthetic valve endocarditis and cardiology recommending further workup, patient did have a CT of the chest abdominal pelvis did not show any focus of infection, clinically suspicious for endocarditis remains to be high as we do not have any other focus for this bacteremia this has been discussed in detail with the cardiology as well as with the CT surgeon on the phone as well as in person, CT surgery recommending medical treatment at this point and wanted to have a repeat echocardiogram in 2-3 weeks for surveillance to make sure no evidence of any perivalvular abscess 4patient has cleared his bacteremia plan is for PICC line and outpatient IV penicillin G continuous infusion to finish a total of 6 weeks along with gentamicin to finish a total of 2 weeks of antibiotics, one in the hospital the patient to continue with ampicillin 2 g every 4 along with gentamicin for synergistic, creatinine was 0.7 as of yesterday blood work to be repeated tomorrow Dictation was produced using [employer] software. please excuse any grammatical, word or spelling errors. Time with Patient: Greater than 30
[2023-05-19] MEDS ORDERED: WARFARIN 7.5 MG TAB PO ONE (18:00)
[2023-05-19] MEDS: SODIUM CHLORIDE 0.9% 1,000 ML IV SCH (18:03)
[2023-05-20] MEDS: AMPICILLIN 2,000 MG in SODIUM CHLORIDE 0.9% 100 ML IVPB SCH ×6 (03:35→23:27)
--- NOTE | 2023-05-20 05:48 | PN ---
PROGRESS NOTE Mr. Aguirre is in sinus rhythm. He is afebrile for the last 48 hours and cultures are negative for 72 hours. He is doing better. Feels well. I talked to Dr. Monzon. From my standpoint, the picture does not suggest that of endocarditis. The vegetation is very questionable and I do not believe it is his vegetation. It is probably a calcified thickened area. I do not believe any surgical intervention is necessary, but I will let the Cardiac Surgery decide. My recommendation is to continue antibiotics for next few weeks as suggested by Dr. Monzon and the patient can be discharged with a PICC line and follow up later by Dr. Monzon and Dr. Dunn. I discussed my thoughts in detail with the patient. I also spoke to Dr. Monzon. MMISSAL / IJN: [id number] /
[2023-05-20] MEDS: GENTAMICIN 100 MG in SODIUM CHLORIDE 0.9% 100 ML IVPB SCH ×3 (05:53→21:58)
[2023-05-20] MEDS: PANTOPRAZOLE 40 MG TABLET PO SCH (06:38)
[2023-05-20 08:17] LABS: HCT 43.9 % (39.0-53.0); HGB 14.6 gm/dL (13.0-17.5); MCH 28.2 pg (25.0-35.0); MCHC 33.4 g/dL (31.0-37.0); MCV 84.5 fL (80.0-100.0); Mean Platelet Volume 7.4; Platelet Count 283 k/uL (150-450); RBC 5.19 m/uL (4.30-5.90); RDW 13.9 % (11.5-15.5); WBC 10.5 k/uL (3.8-10.6)
[2023-05-20 08:21] LABS: INR 3.3 (<1.2); Prothrombin Time 32.6 sec (9.0-12.0)
[2023-05-20 08:30] LABS: African American GFR (CKD) >90 (>60 ml/min/1.73 sqM); Anion Gap 8 mmol/L; Blood Urea Nitrogen 15 mg/dL (9-20); Calcium 9.2 mg/dL (8.4-10.2); Carbon Dioxide 27 mmol/L (22-30); Chloride 104 mmol/L (98-107); Glucose 130 mg/dL (74-99); Non-African American GFR(CKD) >90 (>60 ml/min/1.73 sqM); Potassium 3.7 mmol/L (3.5-5.1); Sodium 139 mmol/L (137-145)
[2023-05-20] MEDS: LOSARTAN 25 MG TAB PO SCH (08:38)
[2023-05-20] MEDS: METOPROLOL SUCCINATE (ER) 25 MG TAB.ER.24H PO SCH ×2 (08:39→19:51)
[2023-05-20] MEDS: MULTIVITAMINS, THERA 1 EACH TAB PO SCH (08:39)
[2023-05-20] MEDS: ASPIRIN 81 MG PO SCH (08:39)
[2023-05-20] MEDS: ATORVASTATIN 10 MG TAB PO SCH (08:39)
[2023-05-20] MEDS: FAMOTIDINE 20 MG TAB PO SCH ×2 (08:39→19:51)
[2023-05-20 11:10] LABS: C Reactive Protein 1.9 mg/dL (<1.0)
[2023-05-20 11:30] LABS: Glucose,Whole Blood 83 mg/dL (70-110)
[2023-05-20] MEDS ORDERED: GENTAMICIN TROUGH DUE 1 EACH MISC MISCELLANE ONE (13:30)
--- NOTE | 2023-05-20 14:16 | P.PN ---
Subjective Progress Note Date: 05/20/23 Principal diagnosis: Bacteremia with enterococcus faecalis, sepsis with concern for infective endocarditis of the mechanical valve. History of unicuspid aortic valve with severe aortic regurgitation status post On-X mechanical aortic valve replacement with ascending aortic replacement in February 2021, CVA 2, hypertension, hyperlipidemia, kidney stones with removal, previous tobacco dependence The patient was seen and examined this afternoon sitting up in bed in no acute distress. States he continues to feel significantly better. Denies any chest pain or shortness of breath. Remains in sinus rhythm, on room air. Labs reviewed, blood cultures from 05/15, 05/16, 05/17 preliminarily negative. Remains on ampicillin and gentamicin per infectious disease. No surgical intervention recommended. Patient anticipates discharge to home tomorrow. Objective - Vital Signs Vital signs: Vital Signs Temp 97.9 F 05/20/23 11:48 Pulse 69 05/20/23 11:48 Resp 18 05/20/23 11:48 BP 161/81 05/20/23 11:48 Pulse Ox 96 05/20/23 11:48 FiO2 21 05/18/23 08:48 Intake & Output 05/19/23 05/20/23 05/20/23 18:59 06:59 18:59 Intake Total 600 360 Output Total 650 250 800 Balance -50 -250 -440 Intake: Oral 600 360 Output: Urine 650 250 800 Other: Voiding Method Urinal Urinal # Voids 400 - Exam CONSTITUTIONAL: Appears comfortable, cooperative, no acute distress RESPIRATORY: Lungs sounds diminished bilaterally. Respirations even, nonlabored. Currently on room air with oxygen saturation 96% CARDIOVASCULAR: S1, S2 present. Regular rate and rhythm, sinus rhythm on telemetry. Sternum stable. Palpable peripheral pulses bilaterally. No edema present GASTROINTESTINAL: Abdomen soft, nontender, nondistended. Active bowel sounds present 4 quadrants. Tolerating diet GENITOURINARY: Continues to void INTEGUMENTARY: Skin is warm and dry NEUROLOGIC: Cranial nerves II through XII intact MUSKULOSKELETAL: Able to move all extremities, strength equal bilaterally, gait normal PSYCHIATRIC: Alert and oriented to person place and time, appropriate affect, intact judgment and insight - Labs CBC & Chem 7: 05/20/23 07:42 05/20/23 07:42 Labs: Abnormal Lab Results - Last 24 Hours (Table) 05/20/23 05/20/23 Range/Units 07:42 07:42 PT 32.6 H (9.0-12.0) sec INR 3.3 H (<1.2) Glucose 130 H (74-99) mg/dL C-Reactive Protein 1.9 H (<1.0) mg/dL Microbiology - Last 24 Hours (Table) 05/17/23 09:22 Blood Culture - Preliminary Blood 05/16/23 09:13 Blood Culture - Preliminary Blood Assessment and Plan Assessment: Bacteremia with enterococcus faecalis, most recent blood cultures negative Sepsis with concern for infective endocarditis of the mechanical valve History of unicuspid aortic valve with severe aortic regurgitation status post On-X mechanical aortic valve replacement with ascending aortic replacement in February 2021 CVA 2 History of hypertension Hyperlipidemia Kidney stones with removal Previous tobacco dependence Plan: Continue antibiotics per infectious disease No surgical intervention planned Medical management of other comorbidities per internal medicine Recommend follow up surveillance echo, preferably YOVANY, in 2-3 weeks Patient cleared for discharge from CV surgery standpoint Will see on an as-needed basis
--- NOTE | 2023-05-20 14:25 | P.PN ---
Progress Note - Text Progress Note Date: 05/20/23 Chief Complaint: Feeling unwell This is a very pleasant 53-year-old patient follows with Dr. Shannon. Chronic stable medical conditions include hypertension, hyperlipidemia, cardiomyopathy EF of about 30-35%. 4 unicuspid aortic valve with severe aortic regurgitation. 03/04/21 underwent aortic valve replacement with a mechanical valve by Dr. Heaton. Cardiac catheterization - normal coronaries. Patient follows with Dr. Lezama note of A[facility] Mason. Patient is doing well up to yesterday afternoon. Started feeling unwell. Chills. Decreased appetite. Some shortness of breath. Tired rundown. Given the ER. Started spiking fevers. Was given IV ceftriaxone and vancomycin the ER. ID was consulted. On night patient continued to spike fever. Denies any cough. No chest pain. No urinary symptoms. Chills and rigors. Accompanied by his at the bedside. Patient had 1 episode of diarrhea yesterday. No abdominal pain. Recently patient had a hematuria and passage of stone. May 15: Seen this morning. at the bedside. Weak tired. No fever since yesterday evening. Headache. Per cardiology for YOVANY tomorrow. On IV ampicillin and gentamicin. Blood cultures growing group D enterococcus. Repeat blood cultures ordered. May 16: Underwent YOVANY today. Questionable regurgitation. Versus artifact. Postprocedure patient is sleepy. Discussed with Dr. Boggs. We'll consult cardiothoracic for their opinion. No fever since overnight. Blood cultures growing enterococcus. Sensitive to penicillin. May 17: Discussed with the patient and . No evidence of UTI on this admission. Patient did have a UTI about 2 weeks ago. Discussed with ID Dr. Hernández. Strong suspicion surgery remains for infective endocarditis. Did discuss with Dr. Boggs from cardiology. Dr. Hernández to speak to Dr. Heaton from cardiothoracic surgery. Meantime patient is doing much better. No fever. Appetite improving. Total time spent today about 50 minutes with over 30 minutes of discussion. May 18: No fever. Eating well. Computed tomography scan abdomen and pelvis unremarkable. He followed by cardiogenic, cardiothoracic surgery, ID. Repeat blood cultures negative to rule out. May 19: Feeling well. Oral intake good. No further fever or white count. Her minutes and IV Unasyn and IV gentamicin. Discussed with ID. Suspicion for acute infective carditis still high. No other source of infection. Discussed with the patient about 4-6 weeks of IV antibiotic. Patient will be followed by cardiology and cardiothoracic surgery. No surgical intervention of the present time per surgery. ID is also following. May 20: Today patient feeling a bit unwell. Having some shakes. No fever. Discussed with patient and ID. This could be from breakdown of bacteria from antibiotics or could be early manifestation of infection coming back. Repeat blood cultures today. Hold off discharge today. As discussed with ID. Active Medications Acetaminophen (Acetaminophen Tab 325 Mg Tab) 650 mg PO Q6HR PRN PRN Reason: Mild Pain or Fever > 100.5 Last Admin: 05/17/23 05:19 Dose: 650 mg Alprazolam (Alprazolam 0.25 Mg Tab) 0.25 mg PO Q6HR PRN PRN Reason: Anxiety Last Admin: 05/18/23 23:40 Dose: 0.25 mg Aspirin (Aspirin 81 Mg) 81 mg PO DAILY [facility] Last Admin: 05/20/23 08:39 Dose: 81 mg Atorvastatin Calcium (Atorvastatin 10 Mg Tab) 10 mg PO DAILY [facility] Last Admin: 05/20/23 08:39 Dose: 10 mg Baclofen (Baclofen 10 Mg Tab) 5 mg PO TID PRN PRN Reason: Muscle Spasm Calcium Carbonate/Glycine (Calcium Carbonate 500 Mg Chewable) 1,000 mg PO Q4HR PRN PRN Reason: Dyspepsia Famotidine (Famotidine 20 Mg Tab) 20 mg PO BID [facility] Last Admin: 05/20/23 08:39 Dose: 20 mg Ampicillin Sodium 2,000 mg/ (Sodium Chloride) 100 mls @ 200 mls/hr IVPB Q4HR [facility]; Protocol Last Admin: 05/20/23 12:20 Dose: 200 mls/hr Gentamicin Sulfate 100 mg/ (Sodium Chloride) 102.5 mls @ 102.5 mls/hr IVPB Q8H [facility] Last Admin: 05/20/23 05:53 Dose: 102.5 mls/hr Sodium Chloride (Saline 0.9%) 1,000 mls @ 50 mls/hr IV .Q20H [facility] Last Admin: 05/19/23 18:03 Dose: Not Given Lactulose (Lactulose 20 Gm/30 Ml Cup) 20 gm PO DAILY PRN PRN Reason: Constipation Losartan Potassium (Losartan 25 Mg Tab) 25 mg PO DAILY [facility] Last Admin: 05/20/23 08:38 Dose: 25 mg Melatonin (Melatonin 3 Mg Tablet) 3 mg PO HS PRN PRN Reason: Insomnia Last Admin: 05/17/23 23:41 Dose: 3 mg Metoprolol Succinate (Metoprolol Succinate (Er) 25 Mg Tab.Er.24h) 25 mg PO BID [facility] Last Admin: 05/20/23 08:39 Dose: 25 mg Miscellaneous Information (Warfarin Per Pharmacy) 0 each MISCELLANE DIRECTED PRN PRN Reason: PER PROTOCOL Miscellaneous Information (Gentamicin Peak Due 1 Each Misc) 0 each MISCELLANE DIRECTED ONE Stop: 05/20/23 16:01 Multivitamins (Multivitamins, Thera 1 Each Tab) 1 each PO DAILY [facility] Last Admin: 05/20/23 08:39 Dose: 1 each Naloxone HCl (Naloxone 0.4 Mg/Ml 1 Ml Vial) 0.2 mg IV Q2M PRN PRN Reason: Opioid Reversal Ondansetron HCl (Ondansetron 4 Mg/2 Ml Vial) 4 mg IVP Q8HR PRN PRN Reason: Nausea And Vomiting Last Admin: 05/13/23 22:15 Dose: 4 mg Pantoprazole Sodium (Pantoprazole 40 Mg Tablet) 40 mg PO AC-BRKFST [facility] Last Admin: 05/20/23 06:38 Dose: 40 mg Warfarin Sodium (Warfarin 7.5 Mg Tab) 7.5 mg PO ONCE@1800 ONE; Protocol Stop: 05/20/23 18:01 Past medical history to include: Unicuspid aortic valve and severe AR leading to Mechanical aortic valve on February 2021 on Coumadin, hypertension, hyperlipidemia, normal cardiac catheterization, EF 30-35% Social history: No alcohol. stopped smoking in August 2020. Breathing about half a pack per week. 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 . Physical examination: VITAL SIGNS: 97.9, 69, 18, 161/81, 96% room air GENERAL: Laying in bed, appearing a bit tired EYES: Pupils equal. Conjunctiva normal. HEENT: External appearance of nose and ears normal, oral cavity grossly normal. NECK: JVD not raised; masses not palpable. HEART: Mechanical heart sound; no edema. LUNGS: Respiratory rate normal; clear to auscultation. ABDOMEN: Soft, nontender, liver spleen not palpable, no masses palpable. PSYCH: Sleepy answering some questions INVESTIGATIONS, reviewed in the clinical context: May 20: White count 10.5. Procalcitonin 0.07 CT abdomen and chest dullness with contrast: Gallstones with contracted gallbladder. Aortic valve repair at bases off aortic root measuring 3.9 cm stable from previous exam. Hepatic steatosis. May 18: Obese 8.5 hemoglobin 15.6 platelets 288 INR 3.3 potassium 3.9 creatinine 0.7 to May 17: White count 7.1 hemoglobin 14.4 platelets 201 INR 3.2 potassium 3.3 creatinine 0.66. Procalcitonin 0.16 YOVANY: Questionable vegetation versus artifact. Blood culture [May 13]: Enterococcus faecalis. [May 15: Pending EKG tracing personally reviewed by me-sinus tachycardia. Rate 121. Some ST segment depression. May 13: White count 12.8 hemoglobin 15.7 platelets 211 INR 3.8 potassium 3.8 creatinine 0.92 Troponin I less than 0.012 UA: Negative for nitrite and leukoesterase Influenza type A, B, RSV, COVID-19: Not detected Chest x-ray film personally reviewed by me-no obvious infiltrate Assessment and plan: -Severe sepsis. Probable acute infective endocolitis of the mechanical valve.: Responding well. Blood cultures positive-Enterococcus faecalis.. IV ampicillin and IV gentamicin. YOVANY: Vegetation versus artifact. CT abdomen pelvis: No other source of infection Cardiothoracic surgery, cardiology, ID following. -Mechanical aortic valve on 03/04/2021, for unicuspid aortic valve and severe aortic regurgitation by Dr. Heaton. Continue with Coumadin. Cardiothoracic surgery following -Hepatic steatosis -Gallstones, asymptomatic -Coumadin monitoring Pharmacy to dose -Toxic cephalgia: Better Local measures discussed. Treat underlying condition. -Chronic insomnia for medical condition -Hyperlipidemia Rosuvastatin -Chronic nonischemic cardiomyopathy from aortic valve disorder, EF 30-35% -Essential hypertension Toprol-XL 25 mg twice a day, Cozaar 25 mg a day Today patient not feeling well. Some shaking. White count normal. No fever. Discussed with ID. Repeat blood culture ordered.
[2023-05-20] MEDS ORDERED: GENTAMICIN PEAK DUE 1 EACH MISC MISCELLANE ONE (17:00)
[2023-05-20] MEDS ORDERED: WARFARIN 7.5 MG TAB PO ONE (18:00)
[2023-05-20] MEDS: SODIUM CHLORIDE 0.9% 1,000 ML IV SCH (19:51)
[2023-05-21] MEDS: AMPICILLIN 2,000 MG in SODIUM CHLORIDE 0.9% 100 ML IVPB SCH ×6 (03:25→23:20)
[2023-05-21] MEDS: GENTAMICIN 100 MG in SODIUM CHLORIDE 0.9% 100 ML IVPB SCH ×3 (06:35→21:42)
[2023-05-21] MEDS: PANTOPRAZOLE 40 MG TABLET PO SCH (06:35)
--- NOTE | 2023-05-21 06:43 | P.PN ---
Subjective Progress Note Date: 05/20/23 Principal diagnosis: Enterococcus bacteremia and concern for endocarditis Patient is a 53-year-old male with a past medical history significant for hypertension depression CVA TIA did have a aortic valve replacement with mechanical valve on 03/04/2021 patient now presenting to [facility] ER for evaluation of shortness of breath headache not feeling well and a fever , recently did have urinary problems with hematuria and passage of the stone. Patient is status post YOVANY completed on 05/16/2023 with evidence of mitral valve endocarditis On today's evaluation that is 05/20/2023, the patient did have an episode of rigors this morning however no fever has been recorded, the patient is breathing comfortably, the patient denies having any chest pain shortness of breath or cough no nausea vomiting no abdominal pain or diarrhea. Patient did have a white count of 10.5 creatinine 0.79 gentamicin sulfate 0.9 blood culture repeat has been negative so far. Objective - Vital Signs Vital signs: Vital Signs Temp 98.7 F 05/20/23 08:00 Pulse 71 05/20/23 08:00 Resp 20 05/20/23 08:00 BP 141/78 05/20/23 08:00 Pulse Ox 96 05/20/23 08:00 FiO2 21 05/18/23 08:48 Intake & Output 05/19/23 05/20/23 05/20/23 18:59 06:59 18:59 Intake Total 600 180 Output Total 650 250 Balance -50 -250 180 Intake: Oral 600 180 Output: Urine 650 250 Other: Voiding Method Urinal Urinal # Voids 400 - Exam GENERAL DESCRIPTION: Middle-age male lying in bed in no distress RESPIRATORY SYSTEM: Unlabored breathing , decreased breath sounds at bases HEART: S1 S2 regular rate and rhythm , ABDOMEN: Soft , no tenderness EXTREMITIES: No edema feet - Labs CBC & Chem 7: 05/20/23 07:42 05/20/23 07:42 Labs: Abnormal Lab Results - Last 24 Hours (Table) 05/20/23 05/20/23 Range/Units 07:42 07:42 PT 32.6 H (9.0-12.0) sec INR 3.3 H (<1.2) Glucose 130 H (74-99) mg/dL Microbiology - Last 24 Hours (Table) 05/17/23 09:22 Blood Culture - Preliminary Blood 05/16/23 09:13 Blood Culture - Preliminary Blood Assessment and Plan (1) Bacteremia due to Enterococcus Current Visit: Yes Status: Acute Code(s): R78.81 - BACTEREMIA; B95.2 - ENTEROCOCCUS THE CAUSE OF DISEASES CLASSIFIED ELSEWHERE SNOMED Code(s): 3198535127 (2) Endocarditis Current Visit: Yes Status: Acute Code(s): I38 - ENDOCARDITIS, VALVE UNSPECIFIED SNOMED Code(s): 14607413 Plan: 1patient was in the hospital with sepsis in this patient with a fever tachycardia elevated white count now with evidence of Enterococcus faecalis bacteremia source likely prosthetic aortic valve endocarditis. 2Enterococcus faecalis bacteremia source likely endocarditis and the patient abdominal soft rectal examination and UA is negative. 3patient is status post YOVANY not very conclusive for prosthetic valve endocarditis and cardiology recommending further workup, patient did have a CT of the chest abdominal pelvis did not show any focus of infection, clinically suspicious for endocarditis remains to be high as we do not have any other focus for this bacteremia this has been discussed in detail with the cardiology as well as with the CT surgeon on the phone as well as in person 4patient did have episodes of rigors and chills this morning for which blood cultures has been repeated we will hold on placing a PICC line while waiting for these cultures to be finalized. 5we will continue the patient on ampicillin with gentamicin while watching his kidney function closely. Patient care was discussed in detail with the patient attending physician on the floor at the bedside questions concern answered Dictation was produced using [employer] dictation software. please excuse any grammatical, word or spelling errors.
[2023-05-21] MEDS: ATORVASTATIN 10 MG TAB PO SCH (08:10)
[2023-05-21] MEDS: METOPROLOL SUCCINATE (ER) 25 MG TAB.ER.24H PO SCH ×2 (08:10→19:49)
[2023-05-21] MEDS: LOSARTAN 25 MG TAB PO SCH (08:10)
[2023-05-21] MEDS: ASPIRIN 81 MG PO SCH (08:11)
[2023-05-21] MEDS: FAMOTIDINE 20 MG TAB PO SCH ×2 (08:11→19:49)
[2023-05-21 08:40] LABS: INR 3.3 (<1.2); Prothrombin Time 31.8 sec (9.0-12.0)
[2023-05-21 08:45] LABS: African American GFR (CKD) >90 (>60 ml/min/1.73 sqM); Non-African American GFR(CKD) >90 (>60 ml/min/1.73 sqM)
[2023-05-21] MEDS: MULTIVITAMINS, THERA 1 EACH TAB PO SCH (10:06)
[2023-05-21] MEDS: SODIUM CHLORIDE 0.9% 1,000 ML IV SCH (10:06)
--- NOTE | 2023-05-21 12:58 | P.PN ---
Progress Note - Text Progress Note Date: 05/21/23 Chief Complaint: Feeling unwell This is a very pleasant 53-year-old patient follows with Dr. Shannon. Chronic stable medical conditions include hypertension, hyperlipidemia, cardiomyopathy EF of about 30-35%. 4 unicuspid aortic valve with severe aortic regurgitation. 03/04/21 underwent aortic valve replacement with a mechanical valve by Dr. Heaton. Cardiac catheterization - normal coronaries. Patient follows with Dr. Lezama note of Ays[facility] Mason. Patient is doing well up to yesterday afternoon. Started feeling unwell. Chills. Decreased appetite. Some shortness of breath. Tired rundown. Given the ER. Started spiking fevers. Was given IV ceftriaxone and vancomycin the ER. ID was consulted. On night patient continued to spike fever. Denies any cough. No chest pain. No urinary symptoms. Chills and rigors. Accompanied by his at the bedside. Patient had 1 episode of diarrhea yesterday. No abdominal pain. Recently patient had a hematuria and passage of stone. May 15: Seen this morning. at the bedside. Weak tired. No fever since yesterday evening. Headache. Per cardiology for YOVNAY tomorrow. On IV ampicillin and gentamicin. Blood cultures growing group D enterococcus. Repeat blood cultures ordered. May 16: Underwent YOVANY today. Questionable regurgitation. Versus artifact. Postprocedure patient is sleepy. Discussed with Dr. Boggs. We'll consult cardiothoracic for their opinion. No fever since overnight. Blood cultures growing enterococcus. Sensitive to penicillin. May 17: Discussed with the patient and . No evidence of UTI on this admission. Patient did have a UTI about 2 weeks ago. Discussed with ID Dr. Hernández. Strong suspicion surgery remains for infective endocarditis. Did discuss with Dr. Boggs from cardiology. Dr. Hernández to speak to Dr. Heaton from cardiothoracic surgery. Meantime patient is doing much better. No fever. Appetite improving. Total time spent today about 50 minutes with over 30 minutes of discussion. May 18: No fever. Eating well. Computed tomography scan abdomen and pelvis unremarkable. He followed by cardiogenic, cardiothoracic surgery, ID. Repeat blood cultures negative to rule out. May 19: Feeling well. Oral intake good. No further fever or white count. Her minutes and IV Unasyn and IV gentamicin. Discussed with ID. Suspicion for acute infective carditis still high. No other source of infection. Discussed with the patient about 4-6 weeks of IV antibiotic. Patient will be followed by cardiology and cardiothoracic surgery. No surgical intervention of the present time per surgery. ID is also following. May 20: Today patient feeling a bit unwell. Having some shakes. No fever. Discussed with patient and ID. This could be from breakdown of bacteria from antibiotics or could be early manifestation of infection coming back. Repeat blood cultures today. Hold off discharge today. As discussed with ID. May 21: Patient feeling better today. No tremor no shakes. Repeat culture from yesterday pending. Continue IV antibiotic. Patient up in about Active Medications Acetaminophen (Acetaminophen Tab 325 Mg Tab) 650 mg PO Q6HR PRN PRN Reason: Mild Pain or Fever > 100.5 Last Admin: 05/17/23 05:19 Dose: 650 mg Alprazolam (Alprazolam 0.25 Mg Tab) 0.25 mg PO Q6HR PRN PRN Reason: Anxiety Last Admin: 05/18/23 23:40 Dose: 0.25 mg Aspirin (Aspirin 81 Mg) 81 mg PO DAILY [facility] Last Admin: 05/21/23 08:11 Dose: 81 mg Atorvastatin Calcium (Atorvastatin 10 Mg Tab) 10 mg PO DAILY [facility] Last Admin: 05/21/23 08:10 Dose: 10 mg Baclofen (Baclofen 10 Mg Tab) 5 mg PO TID PRN PRN Reason: Muscle Spasm Calcium Carbonate/Glycine (Calcium Carbonate 500 Mg Chewable) 1,000 mg PO Q4HR PRN PRN Reason: Dyspepsia Famotidine (Famotidine 20 Mg Tab) 20 mg PO BID [facility] Last Admin: 05/21/23 08:11 Dose: 20 mg Ampicillin Sodium 2,000 mg/ (Sodium Chloride) 100 mls @ 200 mls/hr IVPB Q4HR [facility]; Protocol Last Admin: 05/21/23 12:21 Dose: 200 mls/hr Gentamicin Sulfate 100 mg/ (Sodium Chloride) 102.5 mls @ 102.5 mls/hr IVPB Q8H [facility] Last Admin: 05/21/23 06:35 Dose: 102.5 mls/hr Sodium Chloride (Saline 0.9%) 1,000 mls @ 10 mls/hr IV .Q24H [facility] Last Admin: 05/21/23 10:06 Dose: Not Given Lactulose (Lactulose 20 Gm/30 Ml Cup) 20 gm PO DAILY PRN PRN Reason: Constipation Losartan Potassium (Losartan 25 Mg Tab) 25 mg PO DAILY [facility] Last Admin: 05/21/23 08:10 Dose: 25 mg Melatonin (Melatonin 3 Mg Tablet) 3 mg PO HS PRN PRN Reason: Insomnia Last Admin: 05/17/23 23:41 Dose: 3 mg Metoprolol Succinate (Metoprolol Succinate (Er) 25 Mg Tab.Er.24h) 25 mg PO BID [facility] Last Admin: 05/21/23 08:10 Dose: 25 mg Miscellaneous Information (Warfarin Per Pharmacy) 0 each MISCELLANE DIRECTED PRN PRN Reason: PER PROTOCOL Multivitamins (Multivitamins, Thera 1 Each Tab) 1 each PO DAILY [facility] Last Admin: 05/21/23 10:06 Dose: 1 each Naloxone HCl (Naloxone 0.4 Mg/Ml 1 Ml Vial) 0.2 mg IV Q2M PRN PRN Reason: Opioid Reversal Ondansetron HCl (Ondansetron 4 Mg/2 Ml Vial) 4 mg IVP Q8HR PRN PRN Reason: Nausea And Vomiting Last Admin: 05/13/23 22:15 Dose: 4 mg Pantoprazole Sodium (Pantoprazole 40 Mg Tablet) 40 mg PO AC-BRKFST [facility] Last Admin: 05/21/23 06:35 Dose: 40 mg Warfarin Sodium (Warfarin 7.5 Mg Tab) 7.5 mg PO DAILY@1800 [facility] Past medical history to include: Unicuspid aortic valve and severe AR leading to Mechanical aortic valve on February 2021 on Coumadin, hypertension, hyperlipidemia, normal cardiac catheterization, EF 30-35% Social history: No alcohol. stopped smoking in August 2020. Breathing about half a pack per week. 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 . Physical examination: VITAL SIGNS: 96.8, 77, 18, 151/78, 98% room air GENERAL: Laying in bed, comfortable EYES: Pupils equal. Conjunctiva normal. HEENT: External appearance of nose and ears normal, oral cavity grossly normal. NECK: JVD not raised; masses not palpable. HEART: Mechanical heart sound; no edema. LUNGS: Respiratory rate normal; clear to auscultation. ABDOMEN: Soft, nontender, liver spleen not palpable, no masses palpable. PSYCH: AO 3, mood affect normal INVESTIGATIONS, reviewed in the clinical context: May 20: White count 10.5. Procalcitonin 0.07 CT abdomen and chest dullness with contrast: Gallstones with contracted gallbladder. Aortic valve repair at bases off aortic root measuring 3.9 cm stable from previous exam. Hepatic steatosis. May 18: Obese 8.5 hemoglobin 15.6 platelets 288 INR 3.3 potassium 3.9 creatinine 0.7 to May 17: White count 7.1 hemoglobin 14.4 platelets 201 INR 3.2 potassium 3.3 creatinine 0.66. Procalcitonin 0.16 YOVANY: Questionable vegetation versus artifact. Blood culture [May 13]: Enterococcus faecalis. [May 15: Pending EKG tracing personally reviewed by me-sinus tachycardia. Rate 121. Some ST segment depression. May 13: White count 12.8 hemoglobin 15.7 platelets 211 INR 3.8 potassium 3.8 creatinine 0.92 Troponin I less than 0.012 UA: Negative for nitrite and leukoesterase Influenza type A, B, RSV, COVID-19: Not detected Chest x-ray film personally reviewed by me-no obvious infiltrate Assessment and plan: -Severe sepsis. Probable acute infective endocolitis of the mechanical valve.: Responding well. Blood cultures positive-Enterococcus faecalis.. IV ampicillin and IV gentamicin. YOVANY: Vegetation versus artifact. CT abdomen pelvis: No other source of infection Cardiothoracic surgery, cardiology, ID following. -Mechanical aortic valve on 03/04/2021, for unicuspid aortic valve and severe aortic regurgitation by Dr. Heaton. Continue with Coumadin. Cardiothoracic surgery following -Hepatic steatosis -Gallstones, asymptomatic -Coumadin monitoring Pharmacy to dose -Toxic cephalgia: [facility] measures discussed. Treat underlying condition. -Chronic insomnia for medical condition -Hyperlipidemia Rosuvastatin -Chronic nonischemic cardiomyopathy from aortic valve disorder, EF 30-35% -Essential hypertension Toprol-XL 25 mg twice a day, Cozaar 25 mg a day feeling well today. Repeat blood cultures done yesterday. Discharge when okay with ID. Discussed with patient.
--- NOTE | 2023-05-21 14:18 | P.PN ---
Subjective Progress Note Date: 05/21/23 Principal diagnosis: Enterococcus bacteremia and concern for endocarditis Patient is a 53-year-old male with a past medical history significant for hypertension depression CVA TIA did have a aortic valve replacement with mechanical valve on 03/04/2021 patient now presenting to [facility] ER for evaluation of shortness of breath headache not feeling well and a fever , recently did have urinary problems with hematuria and passage of the stone. Patient is status post YOVANY completed on 05/16/2023 with evidence of mitral valve endocarditis On today's evaluation that is 05/21/2023, the patient is afebrile today and denies having any further rigors or chills that was noticed yesterday, the patient is breathing comfortably , the patient denies chest pain and no significant cough, the patient denies nausea and vomiting no abdominal pain and no diarrhea,a. Patient did have a white count of 10.5 as of 06/06/2023, the patient creatinine 0.78, INR is 3.3, blood culture done on 05/15/2023, 05/16/2020 as well as 05/17/2023 negative blood culture from yesterday so far pending. Objective - Vital Signs Vital signs: Vital Signs Temp 98 F 05/21/23 08:00 Pulse 70 05/21/23 08:00 Resp 16 05/21/23 08:00 BP 156/82 05/21/23 08:00 Pulse Ox 95 05/21/23 08:00 FiO2 21 05/18/23 08:48 Intake & Output 05/20/23 05/21/23 05/21/23 18:59 06:59 18:59 Intake Total 1135 320 Output Total 2550 1200 350 Balance -1415 -1200 -30 Weight 113.398 kg Intake: Intake, IV Titration 775 Amount Ampicillin 2,000 mg In 300 Sodium Chloride 0.9% 100 ml @ 200 mls/hr IVPB Q4HR SWATI Rx#:[id number] Gentamicin 100 mg In 100 Sodium Chloride 0.9% 100 ml @ 102.5 mls/hr IVPB Q8H SWATI Rx#:[id number] Sodium Chloride 0.9% 1, 375 000 ml @ 50 mls/hr IV . Q20H SWATI Rx#:[id number] Oral 360 320 Output: Urine 2550 1200 350 Other: Voiding Method Urinal Urinal - Exam GENERAL DESCRIPTION: Middle-age male lying in bed in no distress RESPIRATORY SYSTEM: Unlabored breathing , decreased breath sounds at bases HEART: S1 S2 regular rate and rhythm , ABDOMEN: Soft , no tenderness EXTREMITIES: No edema feet - Labs CBC & Chem 7: 05/20/23 07:42 05/21/23 07:34 Labs: Abnormal Lab Results - Last 24 Hours (Table) 05/20/23 05/21/23 Range/Units 15:44 07:34 ESR 21 H (0-15) mm/hr PT 31.8 H (9.0-12.0) sec INR 3.3 H (<1.2) Microbiology - Last 24 Hours (Table) 05/17/23 09:22 Blood Culture - Preliminary Blood 05/15/23 08:52 Blood Culture - Final Blood Assessment and Plan (1) Bacteremia due to Enterococcus Current Visit: Yes Status: Acute Code(s): R78.81 - BACTEREMIA; B95.2 - ENTEROCOCCUS THE CAUSE OF DISEASES CLASSIFIED ELSEWHERE SNOMED Code(s): 2641404631 (2) Endocarditis Current Visit: Yes Status: Acute Code(s): I38 - ENDOCARDITIS, VALVE UNSPECIFIED SNOMED Code(s): 69512154 Plan: 1patient was in the hospital with sepsis in this patient with a fever tachycardia elevated white count now with evidence of Enterococcus faecalis bacteremia source likely prosthetic aortic valve endocarditis. 2Enterococcus faecalis bacteremia source likely endocarditis and the patient abdominal soft rectal examination and UA is negative. 3patient is status post YOVANY not very conclusive for prosthetic valve endocardit is and cardiology recommending further workup, patient did have a CT of the chest abdominal pelvis did not show any focus of infection, clinically suspicious for endocarditis remains to be high as we do not have any other focus for this bacteremia this has been discussed in detail with the cardiology as well as with the CT surgeon on the phone as well as in person 4patient did have episodes of rigors and chills morning after 06/06/2023 for which blood cultures has been repeated which are so for negative if the remains to be negative at 48 hours patient should be able to get a PICC line 5plan is for ampicillin 6 weeks with gentamicin 2 weeks total Questions concerned were answered Dictation was produced using [employer] software. please excuse any grammatical, word or spelling errors. Time with Patient: Less than 30
[2023-05-21 15:42] VITALS: BMI 31.2
[2023-05-21] MEDS: WARFARIN 7.5 MG TAB PO SCH (17:24)
[2023-05-22] MEDS: AMPICILLIN 2,000 MG in SODIUM CHLORIDE 0.9% 100 ML IVPB SCH ×4 (04:07→17:08)
[2023-05-22] MEDS: GENTAMICIN 100 MG in SODIUM CHLORIDE 0.9% 100 ML IVPB SCH ×2 (06:10→15:29)
[2023-05-22] MEDS: PANTOPRAZOLE 40 MG TABLET PO SCH (06:10)
[2023-05-22 07:41] LABS: INR 3.2 (<1.2); Prothrombin Time 31.3 sec (9.0-12.0)
[2023-05-22] MEDS: ATORVASTATIN 10 MG TAB PO SCH (09:00)
[2023-05-22] MEDS: FAMOTIDINE 20 MG TAB PO SCH (09:01)
[2023-05-22] MEDS: METOPROLOL SUCCINATE (ER) 25 MG TAB.ER.24H PO SCH (09:01)
[2023-05-22] MEDS: LOSARTAN 25 MG TAB PO SCH (09:01)
[2023-05-22] MEDS: MULTIVITAMINS, THERA 1 EACH TAB PO SCH (09:01)
[2023-05-22] MEDS: ASPIRIN 81 MG PO SCH (09:01)
[2023-05-22] MEDS: SODIUM CHLORIDE 0.9% 1,000 ML IV SCH (10:04)
[2023-05-22 12:14] LABS: African American GFR (CKD) >90 (>60 ml/min/1.73 sqM); Anion Gap 9 mmol/L; Blood Urea Nitrogen 12 mg/dL (9-20); Carbon Dioxide 25 mmol/L (22-30); Chloride 105 mmol/L (98-107); Glucose 98 mg/dL (74-99); Non-African American GFR(CKD) >90 (>60 ml/min/1.73 sqM); Potassium 4.1 mmol/L (3.5-5.1); Sodium 139 mmol/L (137-145)
--- NOTE | 2023-05-22 15:42 | P.PN ---
Subjective Progress Note Date: 05/22/23 Principal diagnosis: Enterococcus bacteremia and concern for endocarditis Patient is a 53-year-old male with a past medical history significant for hypertension depression CVA TIA did have a aortic valve replacement with mechanical valve on 03/04/2021 patient now presenting to [facility] ER for evaluation of shortness of breath headache not feeling well and a fever , recently did have urinary problems with hematuria and passage of the stone. Patient is status post YOVANY completed on 05/16/2023 with evidence of mitral valve endocarditis On today's evaluation that is 05/22/2023, the patient remains to be afebrile, the patient is breathing comfortably , the patient denies chest pain and no significant cough, the patient denies nausea and vomiting no abdominal pain and no diarrhea, Patient did have a white count of 10.5 as of 06/06/2023, the patient creatinine is 0.81 today, INR is 3.2, blood culture done on 05/15/2023, 05/16/2020 , 05/17/2023 along with blood culture drawn on 05/20/2023 so far negative Objective - Vital Signs Vital signs: Vital Signs Temp 98.5 F 05/22/23 09:13 Pulse 79 05/22/23 09:13 Resp 18 05/22/23 09:13 BP 128/75 05/22/23 09:13 Pulse Ox 95 05/22/23 09:13 FiO2 21 05/18/23 08:48 Intake & Output 05/21/23 05/22/23 05/22/23 18:59 06:59 18:59 Intake Total 740 240 Output Total 950 900 Balance -210 -900 240 Intake: Oral 740 240 Output: Urine 950 900 Other: Voiding Method Urinal Urinal Urinal - Exam GENERAL DESCRIPTION: Middle-age male lying in bed in no distress RESPIRATORY SYSTEM: Unlabored breathing , decreased breath sounds at bases HEART: S1 S2 regular rate and rhythm , ABDOMEN: Soft , no tenderness EXTREMITIES: No edema feet - Labs CBC & Chem 7: 05/20/23 07:42 05/22/23 06:53 Labs: Abnormal Lab Results - Last 24 Hours (Table) 05/22/23 Range/Units 06:53 PT 31.3 H (9.0-12.0) sec INR 3.2 H (<1.2) Microbiology - Last 24 Hours (Table) 05/20/23 11:55 Blood Culture - Preliminary Blood 05/16/23 09:13 Blood Culture - Final Blood Assessment and Plan (1) Bacteremia due to Enterococcus Current Visit: Yes Status: Acute Code(s): R78.81 - BACTEREMIA; B95.2 - ENTEROCOCCUS THE CAUSE OF DISEASES CLASSIFIED ELSEWHERE SNOMED Code(s): 3683071182 (2) Endocarditis Current Visit: Yes Status: Acute Code(s): I38 - ENDOCARDITIS, VALVE UNSPECIFIED SNOMED Code(s): 75377700 Plan: 1patient was in the hospital with sepsis in this patient with a fever tachycardia elevated white count now with evidence of Enterococcus faecalis bacteremia source likely prosthetic aortic valve endocarditis. 2Enterococcus faecalis bacteremia source likely endocarditis and the patient abdominal soft on clinical examination and UA is negative. 3patient is status post YOVANY not very conclusive for prosthetic valve endocarditis and cardiology recommending further workup, patient did have a CT of the chest abdominal pelvis did not show any focus of infection, clinically suspicious for endocarditis remains to be high as we do not have any other focus for this bacteremia this has been discussed in detail with the cardiology as well as with the CT surgeon on the phone as well as in person 4patient did have episodes of rigors and chills morning after 05/20/2023 for which blood cultures has been repeated which are so for negative so far, double lumen PICC line has been ordered for outpatient IV antibiotics 5plan is for penicillin G 24 hour infusion 5 weeks with gentamicin pharmacy to dose 3 weeks on discharge prescription was provided to the infusion company and also discuss with there pharmacist Patient will need close outpatient follow-up and careful monitoring of his kidney function, all his questions concerned were answered Dictation was produced using [employer] dictation software. please excuse any grammatical, word or spelling errors. Time with Patient: Less than 30
[2023-05-22 16:53] VITALS: BP 148/79; PULSE 72; RESP 16; TEMP 98.1
[2023-05-22] MEDS: WARFARIN 7.5 MG TAB PO SCH (17:07)
[2023-05-22] MEDS ORDERED: LIDOCAINE 1% INJ 10MG/ML (5 ML VIAL-PF) SQ ONE (17:43)
--- NOTE | 2023-05-22 17:52 | P.OP ---
Date of Procedure: 05/22/23 Description of Procedure: Preoperative Diagnosis: Need for long-term IV antibiotic access. Postoperative Diagnosis: Same. Procedure(s) Performed: Ultrasound-guided cannulation left basilic vein. Insertion of peripherally inserted central catheter under fluoroscopic guidance. Anesthesia: local 1% lidocaine lucio Surgeon: Radha Estimated Blood Loss (ml): 5 IV fluids (ml): 0 Urine output (ml): 0 Pathology: none sent Condition: stable Disposition: no change Indications for Procedure: Patient requires long-term IV antibiotics as an outpatient patient is offered a PICC line to allow for intravenous administration of antibiotics. Description of Procedure: Patient was brought to the special procedure suite. The left upper extremity sterilely prepped and draped in usual manner. Ultrasound was utilized to identify the basilic vein which was normally compressible free of visible thrombus. Permenant image was stored. 1% Xylocaine was utilized for local anesthesia tissues overlying the vein. Through this anesthetized area and with the aid of ultrasound a micropuncture needle was utilized to cannulate the vein. Once cannulated, Softip guidewire was advanced into the vein. The needle was withdrawn and a micropuncture sheath and dilator advanced over the guidewire. The guidewire was withdrawn and exchanged for the PICC guidewire and measured 48 cm to the cavoatrial junction. The catheter was cut to size and advanced into the cavoatrial junction without resistance. The sheath was peeled away. Blood was easily withdrawn through the catheter and the catheter was then flushed with heparinized saline solution and secured to the skin. Patient tolerated procedure well and was returned to their room in satisfactory and stable condition.
--- NOTE | 2023-05-23 13:43 | P.DS ---
Providers Date of admission: 05/13/23 20:42 Expected date of discharge: 05/22/23 Attending physician: Teodoro Almeida Consults: 05/13/23 20:42 Consult Physician Urgent Consulting Provider: Ellie Sigala Consult Reason/Comments: Fever of unknown origin Do you want consulting provider notified?: Yes 05/14/23 12:01 Consult Physician Routine Consulting Provider: Ambrose Hua Consult Reason/Comments: septic/mechanical valve Do you want consulting provider notified?: Yes 05/16/23 17:10 Consult Physician Routine Consulting Provider: Prasanna Davila Consult Reason/Comments: Possible endocarditis. Mechanical aortic valve Do you want consulting provider notified?: Yes Primary care physician: Sagar Shannon [facility] Course: Chief Complaint: Feeling unwell This is a very pleasant 53-year-old patient follows with Dr. Shannon. Chronic stable medical conditions include hypertension, hyperlipidemia, cardiomyopathy EF of about 30-35%. 4 unicuspid aortic valve with severe aortic regurgitation. 03/04/21 underwent aortic valve replacement with a mechanical valve by Dr. Heaton. Cardiac catheterization - normal coronaries. Patient follows with Dr. Lezama note of Aysha Mason. Patient is doing well up to yesterday afternoon. Started feeling unwell. Chills. Decreased appetite. Some shortness of breath. Tired rundown. Given t he ER. Started spiking fevers. Was given IV ceftriaxone and vancomycin the ER. ID was consulted. On night patient continued to spike fever. Denies any cough. No chest pain. No urinary symptoms. Chills and rigors. Accompanied by his at the bedside. Patient had 1 episode of diarrhea yesterday. No abdominal pain. Recently patient had a hematuria and passage of stone. May 15: Seen this morning. at the bedside. Weak tired. No fever since yesterday evening. Headache. Per cardiology for YOVANY tomorrow. On IV ampicillin and gentamicin. Blood cultures growing group D enterococcus. Repeat blood cultures ordered. May 16: Underwent YOVANY today. Questionable regurgitation. Versus artifact. Postprocedure patient is sleepy. Discussed with Dr. Boggs. We'll consult cardiothoracic for their opinion. No fever since overnight. Blood cultures growing enterococcus. Sensitive to penicillin. May 17: Discussed with the patient and . No evidence of UTI on this admission. Patient did have a UTI about 2 weeks ago. Discussed with ID Dr. Hernández. Strong suspicion surgery remains for infective endocarditis. Did discuss with Dr. Boggs from cardiology. Dr. Hernández to speak to Dr. Heaton from cardiothoracic surgery. Meantime patient is doing much better. No fever. Appetite improving. Total time spent today about 50 minutes with over 30 minutes of discussion. May 18: No fever. Eating well. Computed tomography scan abdomen and pelvis unremarkable. He followed by cardiogenic, cardiothoracic surgery, ID. Repeat blood cultures negative to rule out. May 19: Feeling well. Oral intake good. No further fever or white count. Her minutes and IV Unasyn and IV gentamicin. Discussed with ID. Suspicion for acute infective carditis still high. No other source of infection. Discussed with the patient about 4-6 weeks of IV antibiotic. Patient will be followed by cardiology and cardiothoracic surgery. No surgical intervention of the present time per surgery. ID is also following. May 20: Today patient feeling a bit unwell. Having some shakes. No fever. Discussed with patient and ID. This could be from breakdown of bacteria from antibiotics or could be early manifestation of infection coming back. Repeat blood cultures today. Hold off discharge today. As discussed with ID. May 21: Patient feeling better today. No tremor no shakes. Repeat culture from yesterday pending. Continue IV antibiotic. Patient up in about May 22: Doing well. No fever. PICC line was arranged. Dr. Garcia placed the same. I did discuss with ID. Home antibiotics. - arranged. Patient follow-up with cardiology, cardiothoracic surgery, ID. Questions answered. Discussion and discharge planning more than 35 minutes Past medical history to include: Unicuspid aortic valve and severe AR leading to Mechanical aortic valve on February 2021 on Coumadin, hypertension, hyperlipidemia, normal cardiac catheterization, EF 30-35% Social history: No alcohol. stopped smoking in August 2020. Breathing about half a pack per week. 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 . Physical examination: VITAL SIGNS: 98.1, 72, 16, 148/79, 97% room air GENERAL: Laying in bed, comfortable EYES: Pupils equal. Conjunctiva normal. HEENT: External appearance of nose and ears normal, oral cavity grossly normal. NECK: JVD not raised; masses not palpable. HEART: Mechanical heart sound; no edema. LUNGS: Respiratory rate normal; clear to auscultation. ABDOMEN: Soft, nontender, liver spleen not palpable, no masses palpable. PSYCH: AO 3, mood affect normal INVESTIGATIONS, reviewed in the clinical context: May 22: INR 3.2 potassium 4.1 creatinine 0.81 May 20: White count 10.5. Procalcitonin 0.07 CT abdomen and chest dullness with contrast: Gallstones with contracted gallbladder. Aortic valve repair at bases off aortic root measuring 3.9 cm stable from previous exam. Hepatic steatosis. May 18: Obese 8.5 hemoglobin 15.6 platelets 288 INR 3.3 potassium 3.9 creatinine 0.7 to May 17: White count 7.1 hemoglobin 14.4 platelets 201 INR 3.2 potassium 3.3 creatinine 0.66. Procalcitonin 0.16 YOVANY: Questionable vegetation versus artifact. Blood culture [May 13]: Enterococcus faecalis. [May 15: Negative EKG tracing personally reviewed by me-sinus tachycardia. Rate 121. Some ST seg ment depression. May 13: White count 12.8 hemoglobin 15.7 platelets 211 INR 3.8 potassium 3.8 creatinine 0.92 Troponin I less than 0.012 UA: Negative for nitrite and leukoesterase Influenza type A, B, RSV, COVID-19: Not detected Chest x-ray film personally reviewed by me-no obvious infiltrate Assessment and plan: -Severe sepsis. Probable acute infective endocolitis of the mechanical valve.: Responding well. Blood cultures positive-Enterococcus faecalis.. IV ampicillin and IV gentamicin. YOVANY: Vegetation versus artifact. CT abdomen pelvis: No other source of infection Cardiothoracic surgery, cardiology, ID following. Discharge orders: Penicillin G-five-week Gentamicin pharmacy to dose-3 weeks -Mechanical aortic valve on 03/04/2021, for unicuspid aortic valve and severe aortic regurgitation by Dr. Heaton. Continue with Coumadin. Cardiothoracic surgery following -Hepatic steatosis -Gallstones, asymptomatic -Coumadin monitoring Pharmacy to dose -Toxic cephalgia: Better Local measures discussed. Treat underlying condition. -Chronic insomnia for medical condition -Hyperlipidemia Rosuvastatin -Chronic nonischemic cardiomyopathy from aortic valve disorder, EF 30-35% -Essential hypertension Toprol-XL 25 mg twice a day, Cozaar 25 mg a day Disposition: Home Plan - Discharge Summary New Discharge Prescriptions: Continue Metoprolol Succinate (ER) [Toprol XL] 25 mg PO BID Losartan [Cozaar] 25 mg PO DAILY Multivitamins, Thera [Multivitamin (formulary)] 1 tab PO DAILY Aspirin 81 mg PO DAILY #0 Warfarin [Coumadin] 7.5 mg PO HS Pantoprazole [Protonix] 40 mg PO DAILY Rosuvastatin Calcium 5 mg PO DAILY Discontinued Potassium Gluconate 90mg 90 mg PO DAILY Discharge Medication List Aspirin 81 mg PO DAILY #0 03/10/21 [Rx] Losartan [Cozaar] 25 mg PO DAILY 04/13/21 [History] Metoprolol Succinate (ER) [Toprol XL] 25 mg PO BID 04/13/21 [History] Warfarin [Coumadin] 7.5 mg PO HS 04/13/21 [History] Multivitamins, Thera [Multivitamin (formulary)] 1 tab PO DAILY 05/13/23 [History] Pantoprazole [Protonix] 40 mg PO DAILY 05/13/23 [History] Rosuvastatin Calcium 5 mg PO DAILY 05/13/23 [History] Follow up Appointment(s)/Referral(s): Sagar Shannon DO [Primary Care Provider] - 1 Week (please call to schedule appt. ) Teena Herman MD [STAFF PHYSICIAN] - 1 Week (please call to schedule appt. ) [facility], [NON-STAFF] - 1 Week Ellie Sigala MD [STAFF PHYSICIAN] - 1 Week (please call to schedule appt. ) Ambulatory/Diagnostic Orders: Basic Metabolic Panel [LAB.AMB] Location: None Selected C Reactive Protein [LAB.AMB] Location: None Selected Complete Blood Count w/diff [LAB.AMB] Location: None Selected Erythrocyte Sedimentation Rate [LAB.AMB] Location: None Selected Patient Instructions/Handouts: PICC (Peripherally Inserted Central Catheter) (DC) Activity/Diet/Wound Care/Special Instructions: antibiotics to start tomorrow at 9am [facility] care will reach out to you. [facility] [address] [place] [address] [id number] Trotter office or some to [facility] outpatient for CBC, ESR, CRP BMP have them send RESULTS TO DR SIGALA . Discharge Disposition: HOME SELF-CARE
--- NOTE | 2023-05-26 10:56 | IR ---
EXAMINATION TYPE: IR cvc insert >=5 years DATE OF EXAM: 05/26/2023 COMPARISON: NONE HISTORY: Fluoroscopy time. Fluoroscopy was provided to the referring clinician.
== END 2023-05-22 18:59 | disposition home or self-care (01) | DRG 871 ==
LOC: EC 16:28 → 3SCARD 20:42
PROVIDERS: ADMIT Hospitalist; ATTEND Hospitalist
PROC: B24BZZ4 Ultrasonography of Heart with Aorta, Transesophageal (ICD-10-PCS; principal; 2023-05-16 09:00)
PROC: 02HV33Z Insertion of Infusion Device into Superior Vena Cava, Percutaneous Approach (ICD-10-PCS; 2023-05-22)
DX: A41.81 Sepsis due to Enterococcus (principal); I33.0 Acute and subacute infective endocarditis; I42.8 Other cardiomyopathies; I69.351 Hemiplegia and hemiparesis following cerebral infarction affecting right dominant side; K80.10 Calculus of gallbladder with chronic cholecystitis without obstruction; E78.5 Hyperlipidemia, unspecified; F41.9 Anxiety disorder, unspecified; F51.04 Psychophysiologic insomnia; I25.10 Atherosclerotic heart disease of native coronary artery without angina pectoris; I50.9 Heart failure, unspecified; F32.A Depression, unspecified; I11.0 Hypertensive heart disease with heart failure; K59.00 Constipation, unspecified; I08.0 Rheumatic disorders of both mitral and aortic valves; R65.20 Severe sepsis without septic shock; Z71.3 Dietary counseling and surveillance; G47.33 Obstructive sleep apnea (adult) (pediatric); Z95.2 Presence of prosthetic heart valve; K76.0 Fatty (change of) liver, not elsewhere classified; Z28.21 Immunization not carried out because of patient refusal; Z20.822 Contact with and (suspected) exposure to COVID-19; Z79.01 Long term (current) use of anticoagulants; Z79.82 Long term (current) use of aspirin; Z79.899 Other long term (current) drug therapy; Z87.442 Personal history of urinary calculi; Z95.1 Presence of aortocoronary bypass graft; Z91.041 Radiographic dye allergy status
CPT/HCPCS: 36415; 36573; 71046; 71260; 74177; 80048; 80053; 80170; 81001; 82565; 83605; 84145; 84484; 85025; 85027; 85610; 85652; 85730; 86140; 87040; 87077; 87186; 87636; 93005; 93306; 93312; 94760; 96374; 96375; 99285

== ENCOUNTER → 2023-07-03 | Outpatient (CLI) | payer BC | END | disposition home or self-care (01) | LOC: LABWHC1 11:02 | PROVIDERS: ATTEND Internal Medicine Infectious Disease | DX: I38 Endocarditis, valve unspecified (principal) | CPT/HCPCS: 87040 ==

== ENCOUNTER → 2023-07-08 | Outpatient (CLI) | payer BC ==
[2023-07-09 02:21] LABS: Basophils # (A) 0.07 X 10*3/uL (0.00-0.10); Basophils % (A) 0.9 %; Eosinophils # (A) 0.14 X 10*3/uL (0.04-0.35); Eosinophils % (A) 1.8 %; HGB 14.8 d/dL (13.0-17.0); Lymphocytes # (A) 2.26 X 10*3/uL (0.90-5.00); Lymphocytes % (A) 29.7 %; MCH 28.8 pg (27.0-32.0); MCHC 34.4 d/dL (32.0-37.0); MCV 83.7 FL (80.0-97.0); Mean Platelet Volume 10.7 FL (9.5-12.2); Monocytes # (A) 0.62 X 10*3/uL (0.20-1.00); Monocytes % (A) 8.1 %; NRBC Per 100 WBC 0 X 10*3/uL (0.00-0.01); Neutrophils # (A) 4.49 X 10*3/uL (1.80-7.70); Neutrophils % (A) 59.1 %; Platelet Count 209 X 10*3/uL (140-440); RBC 5.14 X 10*6/uL (4.40-5.60); RDW 13.8 % (11.5-14.5); WBC 7.61 X 10*3/uL (4.50-10.00)
[2023-07-09 02:36] LABS: ALT 26 U/L (10-49); AST 30 U/L (14-35); Albumin 4.5 d/dL (3.8-4.9); Albumin/Globulin Ratio 1.73 Ratio (1.60-3.17); Alkaline Phosphatase 87 U/L (41-126); Blood Urea Nitrogen 10.9 mg/dL (9.0-27.0); Calcium 9.4 mg/dL (8.7-10.3); Carbon Dioxide 22.8 mmol/L (21.6-31.8); Chloride 102 mmol/L (96-109); Globulin 2.6 d/dL (1.6-3.3); Glucose 109 mg/dL (70-110); Potassium 3.9 mmol/L (3.5-5.5); Sodium 139 mmol/L (135-145); Total Bilirubin 0.8 mg/dL (0.3-1.2); Total Protein 7.1 d/dL (6.2-8.2)
[2023-07-09 05:17] LABS: Erythrocyte Sedimentation Rate 23 mm/Hr (0-20)
== END | disposition home or self-care (01) ==
LOC: LABWHC1 15:36
PROVIDERS: ATTEND Internal Medicine Infectious Disease
DX: R19.7 Diarrhea, unspecified (principal); R78.81 Bacteremia
CPT/HCPCS: 36415; 80053; 85025; 85652; 86140; 87324

== ENCOUNTER 2024-02-09 02:47 | Observation (INO) | payer BC ==
--- NOTE | 2024-02-09 03:13 | ED ---
General Adult HPI - General Chief complaint: Chest Pain Stated complaint: Chest pain Time Seen by Provider: 02/09/24 02:57 Source: patient, family, RN notes reviewed, old records reviewed Mode of arrival: ambulatory Limitations: no limitations - History of Present Illness Initial comments: 54-year-old male history of mechanical aortic heart valve on Coumadin presenting with chest pain that woke the patient from sleep. Pain is in the left chest rating to his back. Pain is sharp in nature. He denies prior history of CAD. Denies prior history of aortic pathology. Pain is associated with nausea and diaphoresis. - Related Data Home Medications Medication Instructions Recorded Confirmed Losartan [Cozaar] 25 mg PO DAILY 04/13/21 05/13/23 Metoprolol Succinate (ER) [Toprol 25 mg PO BID 04/13/21 05/13/23 XL] Warfarin [Coumadin] 7.5 mg PO HS 04/13/21 05/13/23 Multivitamins, Thera [Multivitamin 1 tab PO DAILY 05/13/23 05/13/23 (formulary)] Pantoprazole [Protonix] 40 mg PO DAILY 05/13/23 05/13/23 Rosuvastatin Calcium 5 mg PO DAILY 05/13/23 05/13/23 Previous Rx's Medication Instructions Recorded Aspirin 81 mg PO DAILY #0 03/10/21 Allergies Allergy/AdvReac Type Severity Reaction Status Date / Time Iodinated Contrast Media AdvReac Severe Vomiting Verified 05/13/23 18:20 Review of Systems ROS Statement: Those systems with pertinent positive or pertinent negative responses have been documented in the HPI. ROS Other: All systems not noted in ROS Statement are negative. Past Medical History Past Medical History: Heart Failure, CVA/TIA, Hyperlipidemia, Hypertension Additional Past Medical History / Comment(s): kidney stones; possible CHRIS- patient was seen by pulmonology in 03/2019 but didn't follow up with testing for CHRIS History of Any Multi-Drug Resistant Organisms: None Reported Past Surgical History: Appendectomy, Heart Catheterization Additional Past Surgical History / Comment(s): kidney stones procedure,YOVANY, aortic valve/ascending aorta replaced on 03/04/21 with On-X mechanical valve and gel weave graft, aortic valve replaced Past Anesthesia/Blood Transfusion Reactions: Postoperative Nausea & Vomiting (PONV) Past Psychological History: Depression Smoking Status: Former smoker Past Alcohol Use History: None Reported Past Drug Use History: None Reported - Past Family History Mother Family Medical History: Cancer Additional Family Medical History / Comment(s): still alive at 78 y/o Father Family Medical History: CVA/TIA Additional Family Medical History / Comment(s): at 86 y/o General Exam Limitations: no limitations General appearance: alert, in distress Head exam: Present: atraumatic, normocephalic Eye exam: Present: normal appearance, PERRL Respiratory exam: Present: normal lung sounds bilaterally. Absent: respiratory distress, wheezes Cardiovascular Exam: Present: regular rate, normal rhythm, systolic murmur GI/Abdominal exam: Present: soft. Absent: distended, tenderness, guarding Extremities exam: Present: other (Symmetric radial and pedal pulses) Neurological exam: Present: alert, oriented X3, CN II-XII intact. Absent: motor sensory deficit Psychiatric exam: Present: anxious Skin exam: Present: warm, intact, cyanosis Course Vital Signs 02/09/24 02/09/24 02/09/24 02:49 04:00 04:17 Temperature 97.7 F Pulse Rate 71 65 65 Respiratory 20 14 14 Rate Blood Pressure 193/102 125/85 112/68 O2 Sat by Pulse 98 93 L 93 L Oximetry 02/09/24 02/09/24 05:00 06:00 Temperature Pulse Rate 60 59 L Respiratory 16 12 Rate Blood Pressure 113/68 102/65 O2 Sat by Pulse 95 95 Oximetry - Reevaluation(s) Reevaluation #1: 02/09/24 04:03 Patient's pain resolved, resting comfortably, blood pressure improved Medical Decision Making - Medical Decision Making Was pt. sent in by a medical professional or institution (, PA, MANAGER OF PURCHASING, urgent care, hospital, or assisted...) When possible be specific @ -No Did you speak to anyone other than the patient for history (EMS, parent, family, police, friend...)? What history was obtained from this source @ -No Did you review nursing and triage notes (agree or disagree)? Why? @ -I reviewed and agree with nursing and triage notes Were old charts reviewed (outside hosp., previous admission, EMS record, old EKG, old radiological studies, urgent care reports/EKG's, assisted records)? Report findings @ -No old charts were reviewed Differential Chest Pain: Stable Angina, Unstable Angina, STEMI, NSTEMI Aortic Dissection, Pneumothorax, Musculoskeletal, Esophageal Spasm GERD, Cholecystitis, Pancreatitis, Zoster, this is not meant to be an all-inclusive list. EKG interpreted by me (3pts min.). @ -EKG: Artifact limiting assessment, suspect sinus mechanism with rate of 78, [place] interval 142, QRS duration 110, QTc [address] segment elevation X-rays interpreted by me (1pt min.). @ -None done CT interpreted by me (1pt min.). @ -CT angiography negative for aortic pathology, no acute findings U/S interpreted by me (1pt. min.). @ -None done What testing was considered but not performed or refused? (CT, X-rays, U/S, labs)? Why? @ -None What meds were considered but not given or refused? Why? @ -None Did you discuss the management of the patient with other professionals (mayelin berrios i.e. , PA, MANAGER OF PURCHASING, lab, RT, psych nurse, social sciences department chair, diamond broker, teacher, seismology technical officer, window caser)? Give summary @ -EMH Was smoking cessation discussed for >3mins.? @ -No Was critical care preformed (if so, how long)? @ -No Were there social determinants of health that impacted care today? How? (Homelessness, low income, unemployed, alcoholism, drug addiction, transportation, low edu. Level, literacy, decrease access to med. care, fci, rehab)? @ -No Was there de-escalation of care discussed even if they declined (Discuss DNR or withdrawal of care, Hospice)? DNR status @ -No What co-morbidities impacted this encounter? (DM, HTN, Smoking, COPD, CAD, Cancer, CVA, ARF, Chemo, Hep., AIDS, mental health diagnosis, sleep apnea, morbid obesity)? @ -Aortic valve replacement Was patient admitted / discharged? Hospital course, mention meds given and route, prescriptions, significant lab abnormalities, going to OR and other pertinent info. @54-year-old male presenting with left-sided chest pain radiating into his back. Patient was initially hypertensive and there was concern for aortic pathology. He was taken immediately to CT which was negative for dissection. Patient received continued workup including laboratory testing which showed normal CBC, normal CMP, negative initial troponin. Patient had some improvement with initial treatment but will require telemetry, serial cardiac enzymes and cardiology consultation. INR is therapeutic Undiagnosed new problem with uncertain prognosis? @ -No Drug Therapy requiring intensive monitoring for toxicity (Heparin, Nitro, I nsulin, Cardizem)? @ -No Were any procedures done? @ -No Diagnosis/symptom? @ -Chest pain rule out Acute, or Chronic, or Acute on Chronic? @Acute Uncomplicated (without systemic symptoms) or Complicated (systemic symptoms)? @ -Default Side effects of treatment? @ -No Exacerbation, Progression, or Severe Exacerbation? @ -No Poses a threat to life or bodily function? How? (Chest pain, [place], [place], pneumonia, PE, COPD, DKA, ARF, appy, cholecystitis, CVA, Diverticulitis, Homicidal, Suicidal, threat to staff... and all critical care pts) @ -Yes, ACS - Lab Data Result diagrams: 02/09/24 03:00 02/09/24 03:00 Lab Results 02/09/24 02/09/24 02/09/24 Range/Units 03:00 03:00 03:00 WBC 8.9 (3.8-10.6) k/uL RBC 5.27 (4.30-5.90) m/uL Hgb 15.6 (13.0-17.5) gm/dL Hct 44.9 (39.0-53.0) % MCV 85.1 (80.0-100.0) fL MCH 29.7 (25.0-35.0) pg MCHC 34.9 (31.0-37.0) g/dL RDW 12.9 (11.5-15.5) % Plt Count 241 (150-450) k/uL MPV 7.2 Neutrophils % 62 % Lymphocytes % 27 % Monocytes % 7 % Eosinophils % 2 % Basophils % 1 % Neutrophils # 5.5 (1.3-7.7) k/uL Lymphocytes # 2.4 (1.0-4.8) k/uL Monocytes # 0.6 (0-1.0) k/uL Eosinophils # 0.2 (0-0.7) k/uL Basophils # 0.1 (0-0.2) k/uL PT 22.7 H (10.0-12.5) sec INR 2.3 H (<1.2) APTT 35.4 H (22.0-30.0) sec Sodium 140 (137-145) mmol/L Potassium 3.6 (3.5-5.1) mmol/L Chloride 107 (98-107) mmol/L Carbon Dioxide 23 (22-30) mmol/L Anion Gap 10 mmol/L BUN 14 (9-20) mg/dL Creatinine 0.84 (0.66-1.25) mg/dL Est GFR (CKD-EPI)AfAm >90 (>60 ml/min/1.73 sqM) Est GFR (CKD-EPI)NonAf >90 (>60 ml/min/1.73 sqM) Glucose 116 H (74-99) mg/dL Calcium 9.5 (8.4-10.2) mg/dL Magnesium 2.0 (1.6-2.3) mg/dL Total Bilirubin 1.1 (0.2-1.3) mg/dL AST 32 (17-59) U/L ALT 30 (4-49) U/L Alkaline Phosphatase 92 (38-126) U/L Troponin I (0.000-0.034) ng/mL Total Protein 7.6 (6.3-8.2) g/dL Albumin 4.7 (3.5-5.0) g/dL Lipase (23-300) U/L 02/09/24 02/09/24 Range/Units 03:00 06:00 WBC (3.8-10.6) k/uL RBC (4.30-5.90) m/uL Hgb (13.0-17.5) gm/dL Hct (39.0-53.0) % MCV (80.0-100.0) fL MCH (25.0-35.0) pg MCHC (31.0-37.0) g/dL RDW (11.5-15.5) % Plt Count (150-450) k/uL MPV Neutrophils % % Lymphocytes % % Monocytes % % Eosinophils % % Basophils % % Neutrophils # (1.3-7.7) k/uL Lymphocytes # (1.0-4.8) k/uL Monocytes # (0-1.0) k/uL Eosinophils # (0-0.7) k/uL Basophils # (0-0.2) k/uL PT (10.0-12.5) sec INR (<1.2) APTT (22.0-30.0) sec Sodium (137-145) mmol/L Potassium (3.5-5.1) mmol/L Chloride (98-107) mmol/L Carbon Dioxide (22-30) mmol/L Anion Gap mmol/L BUN (9-20) mg/dL Creatinine (0.66-1.25) mg/dL Est GFR (CKD-EPI)AfAm (>60 ml/min/1.73 sqM) Est GFR (CKD-EPI)NonAf (>60 ml/min/1.73 sqM) Glucose (74-99) mg/dL Calcium (8.4-10.2) mg/dL Magnesium (1.6-2.3) mg/dL Total Bilirubin (0.2-1.3) mg/dL AST (17-59) U/L ALT (4-49) U/L Alkaline Phosphatase (38-126) U/L Troponin I 0.014 (0.000-0.034) ng/mL Total Protein (6.3-8.2) g/dL Albumin (3.5-5.0) g/dL Lipase 428 H (23-300) U/L Disposition Clinical Impression: Chest pain Disposition: ADMITTED IP TO THIS HOSP Condition: Stable Is patient prescribed a controlled substance at d/c from ED?: No Time of Disposition: 06:18
[2024-02-09 03:14] LABS: Basophils # (A) 0.1 k/uL (0-0.2); Basophils % (A) 1 %; Eosinophils # (A) 0.2 k/uL (0-0.7); Eosinophils % (A) 2 %; HCT 44.9 % (39.0-53.0); HGB 15.6 gm/dL (13.0-17.5); Lymphocytes # (A) 2.4 k/uL (1.0-4.8); Lymphocytes % (A) 27 %; MCH 29.7 pg (25.0-35.0); MCHC 34.9 g/dL (31.0-37.0); MCV 85.1 fL (80.0-100.0); Mean Platelet Volume 7.2; Monocytes # (A) 0.6 k/uL (0-1.0); Monocytes % (A) 7 %; Neutrophils # (A) 5.5 k/uL (1.3-7.7); Neutrophils % (A) 62 %; Platelet Count 241 k/uL (150-450); RBC 5.27 m/uL (4.30-5.90); RDW 12.9 % (11.5-15.5); WBC 8.9 k/uL (3.8-10.6)
[2024-02-09] MEDS: diphenhydrAMINE 50 MG/ML 1 ML VIAL IVP STA (03:22)
[2024-02-09] MEDS: FAMOTIDINE 20 MG/2 ML VIAL IV STA (03:22)
[2024-02-09] MEDS: HYDROmorphone 1 MG/ML 1 ML SYRINGE IVP STA (03:23)
[2024-02-09] MEDS: methylPREDNISolone SOD SUCCI 125 MG/2 ML VIAL IV STA (03:23)
[2024-02-09 03:25] LABS: INR 2.3 (<1.2); Partial Thromboplastin Time 35.4 sec (22.0-30.0); Prothrombin Time 22.7 sec (10.0-12.5)
[2024-02-09 03:35] LABS: ALT 30 U/L (4-49); AST 32 U/L (17-59); African American GFR (CKD) >90 (>60 ml/min/1.73 sqM); Albumin 4.7 g/dL (3.5-5.0); Alkaline Phosphatase 92 U/L (38-126); Anion Gap 10 mmol/L; Blood Urea Nitrogen 14 mg/dL (9-20); Calcium 9.5 mg/dL (8.4-10.2); Carbon Dioxide 23 mmol/L (22-30); Chloride 107 mmol/L (98-107); Glucose 116 mg/dL (74-99); Non-African American GFR(CKD) >90 (>60 ml/min/1.73 sqM); Potassium 3.6 mmol/L (3.5-5.1); Sodium 140 mmol/L (137-145); Total Bilirubin 1.1 mg/dL (0.2-1.3); Total Protein 7.6 g/dL (6.3-8.2)
--- NOTE | 2024-02-09 05:54 | CT ---
EXAMINATION TYPE: CT angio thor/abd pel aorta DATE OF EXAM: 02/09/2024 COMPARISON: Prior CT chest May 18, 2023 HISTORY: chest pain rad to back tightness pain. +sob. pain woke pt up CT DLP: 2628.7 mGycm. Automated Exposure Control for Dose Reduction was Utilized. CONTRAST: CTA scan of the thorax, abdomen and pelvis is performed without and with IV Contrast, patient injecte d with 100 mL of Isovue 370. Three-D reconstructed images created on an independent workstation and r eviewed. FINDINGS: VASCULAR: Noncontrast images show no suspicious hyperdense material to suggest intramural hematoma. S atisfactory enhancement of the central pulmonary arteries. Bovine type arch which is normal variant. Aortic root measures up to 4.2 cm in diameter coronal image 75. Patent celiac artery, SMA, and ESTRELLA. P atent single bilateral renal arteries. Patent iliac and femoral vessels without significant stenosis. No AAA. No linear hypodensity to suggest dissection. LUNGS: The lungs are grossly clear, there is no concerning focal consolidation or suspicious mass yves ntified. Some motion artifact degradation. There is no pleural effusion or pneumothorax seen. The t racheobronchial tree is patent. MEDIASTINUM: Calcification and/or surgical change in level of the aortic valve is redemonstrated. Lef t atrial appendage clip again seen. Overlying sternal wires again seen. No cardiomegaly or pericardia l effusion is seen. OTHER: Small degree of bilateral subareolar gynecomastia is redemonstrated. LIVER/GB: Dependent small stones and/or gallbladder sludge. Liver is diffusely low dense consistent w ith fatty infiltrative hepatocellular disease. PANCREAS: No significant abnormality is seen. SPLEEN: No significant abnormality is seen. ADRENALS: No significant abnormality is seen. KIDNEYS: No significant abnormality is seen. BOWEL: No significant abnormality is seen. GENITAL ORGANS: No gross abnormality seen. LYMPH NODES: No greater than 1cm abdominal or pelvic lymph nodes are appreciated. OSSEOUS STRUCTURES: No significant abnormality is seen. OTHER: Stable small fat-containing left inguinal hernia. IMPRESSION: No aortic dissection. Postsurgical change to the aortic valve and root redemonstrated. S light aneurysmal change to the aortic root up to 4.2 cm. No acute findings seen to account for patien t symptoms.
[2024-02-09] MEDS ORDERED: HYDROmorphone 0.5 MG/0.5 ML SYRINGE IVP PRN (06:15)
[2024-02-09] MEDS ORDERED: ONDANSETRON 4 MG/2 ML VIAL IVP PRN (06:15)
[2024-02-09] MEDS ORDERED: ACETAMINOPHEN TAB 325 MG TAB PO PRN (06:15)
[2024-02-09] MEDS ORDERED: NALOXONE 0.4 MG/ML 1 ML VIAL IV PRN (06:15)
[2024-02-09 07:36] VITALS: RESP 18
[2024-02-09] MEDS ORDERED: DOBUTamine DRIP for NUC MED 500 MG/250 ML BAG IV ONE (08:00)
--- NOTE | 2024-02-09 10:18 | P.CRDCN ---
History of Present Illness History of present illness: HISTORY OF PRESENT ILLNESS: This is a 54-year-old male with a past medical history significant for hypertension, hyperlipidemia, CVA, mechanical aortic valve replacement in 2020, and endocarditis in 2022. Patient follows with a eligibility and occupancy interviewer out of town, Dr. Tabor. We have been asked to see the patient in consultation for chest pain. Patient examined at the bedside. Patient reports having an episode of chest pain yesterday that woke him up from sleep. Patient describes the pain as a sharp pain. He denies any shortness of breath. Patient states he has had not had discomfort like this in the past. Patient currently denies any chest pain or pressure. Patient's INR on admission was 2.3. Patient states he usually takes 7.5 mg of Coumadin Thursday and Thursday and 5 mg the remaining days. DIAGNOSTICS: - EKG reveals sinus mechanism with no signs of acute ischemia - CT angio thorax: No aortic dissection. Postsurgical changes to the aortic valve and root redemonstrated. Slight aneurysmal changes to the aortic root up to 4.2 cm. No acute findings seen to account for patient's symptoms. - Laboratory data: WBC 8.9. Hemoglobin 15.5. Platelet count 241. INR 2.3. S odium 140. Potassium 3.6. BUN 14. Creatinine 0.84. Magnesium 2.0. Troponin negative x 1. - Most recent echocardiogram obtained in May 2023 revealed ejection fraction 5055% -Patient underwent cardiac catheterization in December 2020 revealing normal coronary arteries REVIEW OF SYSTEMS: At the time of my exam: CONSTITUTIONAL: Denies fever or chills. HEENT: Denies blurred vision, vision changes, or eye pain. Denies hemoptysis CARDIOVASCULAR: Denies chest pain. Denies orthopnea. Denies PND. Denies palpitations RESPIRATORY: Denies shortness of breath. GASTROINTESTINAL: Denies abdominal pain. Denies nausea or vomiting. HEMATOLOGIC: Denies bleeding disorders. GENITOURINARY: Denies any blood in urine. SKIN: Denies pruitis. Denies rash. PHYSICAL EXAM: VITAL SIGNS: Reviewed. GENERAL: Well-developed in no acute distress. HEENT: Head is normocephalic. Pupils are equal, round. Sclerae anicteric. Mucous membranes of the mouth are moist. Neck supple. No JVD or thyromegaly LUNGS: Respirations even and unlabored. Lungs essentially clear to auscultation bilaterally. HEART: Regular rate and rhythm. S1 and S2 heard. ABDOMEN: Soft. Nondistended. Nontender. EXTREMITIES: Normal range of motion. No clubbing or cyanosis. Peripheral pulses intact. No lower extremity edema NEUROLOGIC: Awake and alert. Oriented x 3. 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 Monitor INR. Patient to undergo stress echocardiogram today If negative, he may be discharged home from a cardiac standpoint Patient instructed to increase his Coumadin dosing from 7.5 mg 3 times a week up to 4 times a week and to continue with 5 mg the additional days Further recommendations pending patient course Nurse practitioner note has been reviewed by physician. Signing provider agrees with the documented findings, assessment, and plan of care documented by [employer] CONSULTANT as a scribe. Past Medical History Past Medical History: Heart Failure, CVA/TIA, Hyperlipidemia, Hypertension Additional Past Medical History / Comment(s): kidney stones; possible CHRIS- patient was seen by pulmonology in 03/2019 but didn't follow up with testing for CHRIS History of Any Multi-Drug Resistant Organisms: None Reported Past Surgical History: Appendectomy, Heart Catheterization Additional Past Surgical History / Comment(s): kidney stones procedure,YOVANY, aortic valve/ascending aorta replaced on 03/04/21 with On-X mechanical valve and gel weave graft, aortic valve replaced Past Anesthesia/Blood Transfusion Reactions: Postoperative Nausea & Vomiting (PONV) Past Psychological History: Depression Smoking Status: Former smoker Past Alcohol Use History: None Reported Past Drug Use History: None Reported - Past Family History Mother Family Medical History: Cancer Additional Family Medical History / Comment(s): still alive at 78 y/o Father Family Medical History: CVA/TIA Additional Family Medical History / Comment(s): at 86 y/o Medications and Allergies Home Medications Medication Instructions Recorded Confirmed Type Aspirin 81 mg PO DAILY #0 03/10/21 05/13/23 Rx Losartan [Cozaar] 25 mg PO DAILY 04/13/21 05/13/23 History Metoprolol Succinate (ER) [Toprol 25 mg PO BID 04/13/21 05/13/23 History XL] Warfarin [Coumadin] 7.5 mg PO HS 04/13/21 05/13/23 History Multivitamins, Thera [Multivitamin 1 tab PO DAILY 05/13/23 05/13/23 History (formulary)] Pantoprazole [Protonix] 40 mg PO DAILY 05/13/23 05/13/23 History Rosuvastatin Calcium 5 mg PO DAILY 05/13/23 05/13/23 History Allergies Allergy/AdvReac Type Severity Reaction Status Date / Time Iodinated Contrast Media AdvReac Severe Vomiting Verified 02/09/24 09:59 Physical Exam Vitals: Vital Signs Temp Pulse Resp BP Pulse Ox 02/09/24 07:30 97.7 F 66 18 128/67 97 02/09/24 06:00 59 L 12 102/65 95 02/09/24 05:00 60 16 113/68 95 02/09/24 04:17 65 14 112/68 93 L 02/09/24 04:00 65 14 125/85 93 L 02/09/24 02:49 97.7 F 71 20 193/102 98 Intake and Output 02/08/24 02/09/24 02/09/24 22:59 06:59 14:59 Other: Weight 113.398 kg Results 02/09/24 03:00 02/09/24 03:00 Cardiac Enzymes 02/09/24 02/09/24 Range/Units 03:00 03:00 AST 32 (17-59) U/L Troponin I 0.014 (0.000-0.034) ng/mL Coagulation 02/09/24 Range/Units 03:00 PT 22.7 H (10.0-12.5) sec APTT 35.4 H (22.0-30.0) sec CBC 02/09/24 Range/Units 03:00 WBC 8.9 (3.8-10.6) k/uL RBC 5.27 (4.30-5.90) m/uL Hgb 15.6 (13.0-17.5) gm/dL Hct 44.9 (39.0-53.0) % Plt Count 241 (150-450) k/uL Comprehensive Metabolic Panel 02/09/24 Range/Units 03:00 Sodium 140 (137-145) mmol/L Potassium 3.6 (3.5-5.1) mmol/L Chloride 107 (98-107) mmol/L Carbon Dioxide 23 (22-30) mmol/L BUN 14 (9-20) mg/dL Creatinine 0.84 (0.66-1.25) mg/dL Glucose 116 H (74-99) mg/dL Calcium 9.5 (8.4-10.2) mg/dL AST 32 (17-59) U/L ALT 30 (4-49) U/L Alkaline Phosphatase 92 (38-126) U/L Total Protein 7.6 (6.3-8.2) g/dL Albumin 4.7 (3.5-5.0) g/dL Current Medications Generic Name Dose Route Start Last Admin Trade Name Freq PRN Reason Stop Dose Admin Acetaminophen 650 mg 02/09/24 06:15 Acetaminophen Tab 325 Mg Tab PO Q6HR PRN Mild Pain or Fever > 100.5 Hydromorphone HCl 0.5 mg 02/09/24 06:15 Hydromorphone 0.5 Mg/0.5 Ml Syringe IVP Q3HR PRN Moderate Pain (Scale 4 to 6) Miscellaneous Information 1 each 02/09/24 08:55 Warfarin Per Pharmacy MISCELLANE DIRECTED PRN Per Protocol Protocol Naloxone HCl 0.2 mg 02/09/24 06:15 Naloxone 0.4 Mg/Ml 1 Ml Vial IV Q2M PRN Opioid Reversal Ondansetron HCl 4 mg 02/09/24 06:15 Ondansetron 4 Mg/2 Ml Vial IVP Q8HR PRN Nausea And Vomiting Warfarin Sodium 7.5 mg 02/09/24 21:00 Warfarin 7.5 Mg Tab PO HS [facility] Protocol Intake and Output 02/08/24 02/09/24 02/09/24 22:59 06:59 14:59 Other: Weight 113.398 kg 02/09/24 03:00 02/09/24 03:00
--- NOTE | 2024-02-09 11:17 | US ---
EXAMINATION TYPE: US abdomen limited DATE OF EXAM: 02/09/2024 COMPARISON: NONE CLINICAL INDICATION: Male, 54 years old with history of Abdominal pain; GB stones seen in CT, chest p ain TECHNIQUE: Multiple sonographic images of the right upper quadrant are obtained. FINDINGS: EXAM MEASUREMENTS: Liver Length: 17.6 cm Gallbladder Wall: 0.2 cm CBD: 0.7 cm Right Kidney: 10.4 x 4.4 x 5.5 cm DIRECTOR OF PERIOPERATIVE SERVICES NOTES: bowel gas obscured images Pancreas: limited views appear wnl Liver: very difficult to penetrate, attenuating. Gallbladder: dependant stones seen, wall wnl. No abnormal distention. Evidence for sonographic Rolle's sign: no CBD: wnl Right Kidney: wnl IMPRESSION: 1. Borderline hepatomegaly at 17.6 cm with very severe hepatic steatosis. Appropriate clinical manage ment advised. 2. Cholelithiasis. No ancillary imaging findings of acute cholecystitis. 3. Bile duct borderline dilated at 7 mm. This may be chronic for the patient. Correlate with alkaline phosphatase and bilirubin levels.
--- NOTE | 2024-02-09 12:12 | P.HPIM ---
History of Present Illness H&P Date: 02/09/24 History of present illness; patient 54-year-old gentleman past medical history significant for hypertension, mechanical aortic valve presented to ER because of chest pain. Patient he was all right this morning when he was woken from sleep with chest pain that was left-sided, sharp, nonradiating, no aggravating or relieving factor associated chest pain. Patient was complaining of nausea and diaphoresis at the time. There was no complaint of lightheadedness or dizziness. There is no complaint of palpitation. Denied any shortness of breath. There was no complaint orthopnea or PND. Because of this chest pain, patient came to the ER Initial lab work done in the ER showed WBC 8.9, hemoglobin 15.6, INR 2.3, sodium 140, potassium 3.6, BUN 14, creatinine 0.84, glucose 116, troponin 0.014, lipase 428 EKG done in the ER showed heart rate of 78, no ST segment elevation or depression seen, no T-wave inversions seen. CT thoracic aorta done showed no aortic dissection, slight aneurysmal change of the aortic root up to 4.2 cm. Patient admitted to internal medicine service REVIEW OF SYSTEMS: CONSTITUTIONAL: No fever, no malaise, no fatigue. HEENT: No recent visual problems or hearing problems. Denied any sore throat. CARDIOVASCULAR: As mentioned above PULMONARY: As mentioned above GASTROINTESTINAL: No diarrhea, no nausea, no vomiting, no abdominal pain. NEUROLOGICAL: No headaches, no weakness, no numbness. HEMATOLOGICAL: Denies any bleeding or petechiae. GENITOURINARY: Denies any burning micturition, frequency, or urgency. MUSCULOSKELETAL/RHEUMATOLOGICAL: Denies any joint pain, swelling, or any muscle pain. ENDOCRINE: Denies any polyuria or polydipsia. The rest of the 14-point review of systems is negative. PHYSICAL EXAMINATION: GENERAL: The patient is alert and oriented x3, not in any acute distress. Well developed, well nourished. HEENT: Pupils are round and equally reacting to light. EOMI. No scleral icterus. No conjunctival pallor. Normocephalic, atraumatic. No pharyngeal erythema. No thyromegaly. CARDIOVASCULAR: S1 and S2 present. No murmurs, rubs, or gallops. PULMONARY: Chest is clear to auscultation, no wheezing or crackles. ABDOMEN: Soft, nontender, nondistended, normoactive bowel sounds. No palpable organomegaly. MUSCULOSKELETAL: No joint swelling or deformity. EXTREMITIES: No cyanosis, clubbing, or pedal edema. NEUROLOGICAL: Gross neurological examination did not reveal any focal deficits. SKIN: No rashes. 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 Ordered 2D echo Resume Coumadin Resume cardiac medication Consult cardiology Labs and medication were reviewed.. Continue same treatment. Continue with symptomatic treatment. Resume home medication. Monitor labs and vitals. DVT and GI prophylaxis. Further recommendations as per clinical course of the patient Dictation was produced using [employer] dictation software. please excuse any grammatical, word or spelling errors. Past Medical History Past Medical History: Heart Failure, CVA/TIA, Hyperlipidemia, Hypertension Additional Past Medical History / Comment(s): kidney stones; possible CHRIS- patient was seen by pulmonology in 03/2019 but didn't follow up with testing for CHRIS History of Any Multi-Drug Resistant Organisms: None Reported Past Surgical History: Appendectomy, Heart Catheterization Additional Past Surgical History / Comment(s): kidney stones procedure,YOVANY, aortic valve/ascending aorta replaced on 03/04/21 with On-X mechanical valve and gel weave graft, aortic valve replaced Past Anesthesia/Blood Transfusion Reactions: Postoperative Nausea & Vomiting (PONV) Past Psychological History: Depression Smoking Status: Former smoker Past Alcohol Use History: None Reported Past Drug Use History: None Reported - Past Family History Mother Family Medical History: Cancer Additional Family Medical History / Comment(s): still alive at 78 y/o Father Family Medical History: CVA/TIA Additional Family Medical History / Comment(s): at 86 y/o Medications and Allergies Home Medications Medication Instructions Recorded Confirmed Type Aspirin 81 mg PO DAILY #0 03/10/21 05/13/23 Rx Losartan [Cozaar] 25 mg PO DAILY 04/13/21 05/13/23 History Metoprolol Succinate (ER) [Toprol 25 mg PO BID 04/13/21 05/13/23 History XL] Warfarin [Coumadin] 7.5 mg PO HS 04/13/21 05/13/23 History Multivitamins, Thera [Multivitamin 1 tab PO DAILY 05/13/23 05/13/23 History (formulary)] Pantoprazole [Protonix] 40 mg PO DAILY 05/13/23 05/13/23 History Rosuvastatin Calcium 5 mg PO DAILY 05/13/23 05/13/23 History Allergies Allergy/AdvReac Type Severity Reaction Status Date / Time Iodinated Contrast Media AdvReac Severe Vomiting Verified 02/09/24 09:59 Physical Exam Vitals: Vital Signs Temp Pulse Resp BP Pulse Ox 02/09/24 07:30 97.7 F 66 18 128/67 97 02/09/24 06:00 59 L 12 102/65 95 02/09/24 05:00 60 16 113/68 95 02/09/24 04:17 65 14 112/68 93 L 02/09/24 04:00 65 14 125/85 93 L 02/09/24 02:49 97.7 F 71 20 193/102 98 Intake and Output 02/08/24 02/09/24 02/09/24 22:59 06:59 14:59 Other: Weight 113.398 kg Results CBC & Chem 7: 02/09/24 03:00 02/09/24 03:00 Labs: Abnormal Lab Results - Last 24 Hours (Table) 02/09/24 02/09/24 02/09/24 Range/Units 03:00 03:00 03:00 PT 22.7 H (10.0-12.5) sec INR 2.3 H (<1.2) APTT 35.4 H (22.0-30.0) sec Glucose 116 H (74-99) mg/dL Lipase 428 H (23-300) U/L
[2024-02-09] MEDS ORDERED: DOBUTamine DRIP for NUC MED 500 MG in DEXTROSE/WATER 1 250ML.BAG IV PRN (13:00)
[2024-02-09] MEDS: METOPROLOL SUCCINATE (ER) 25 MG TAB.ER.24H PO SCH (13:51)
[2024-02-09] MEDS: ATORVASTATIN 10 MG TAB PO SCH (13:51)
[2024-02-09] MEDS: ASPIRIN 81 MG PO SCH (13:51)
[2024-02-09] MEDS: LOSARTAN-HCTZ 50-12.5 MG 1 EACH TAB PO SCH (13:51)
--- NOTE | 2024-02-09 17:25 | CA ---
Dobutamine Stress Echocardiogram Report Bogdan Aguirre Age: 54 Gender: M : 1970 Exam Date: 02/09/2024 12:46 Exam Location: [facility] Ordering Physician: Katya Briscoe Referring Physician: [id number] Felipe Cabinet Worker: Maya Bautista RDCS Technologist: Ht (in): 75 Wt (lb): 350 Procedure CPT: Indication: CP ICD-9 Codes: Rhythm: Patient History: CP, CODY, PALP, HTN, CVA, FAMILY HX, CATH, TAVR Cardiac Medications: SEE CHART Medications in past 24 hours: Contrast: Definity Total Dose (mL): 3 Stress Results Protocol: Dobutamine Peak Dose (???g/kg/min): 30 Duration (min:sec): Atropine:(mg) None Target HR: 142 Double Product: [id number] Resting HR: 69 Resting BP: 135 / 84 Peak HR: 136 Peak BP: 196 / 64 Max Predicted HR: 167 81 % Max Predicted HR Stress Summary: BP Response: Reason for Termination: Developed significant angina Cardiac Symptoms: Chest pain ECG Analysis Resting EKG: Normal sinus rhythm normal axis normal intervals Stress EKG: Patient was given intravenous dobutamine as per protocol achieving 85% of predicted maximal heart rate without diagnostic ST segment depression Arrhythmia: Echo Analysis Base Echo Analysis: Normal left ventricle a size wall motion systolic function Low Echo Anaylsis: Normal Peak Echo Analysis: Hyperdynamic Recovery Echo: Normal MEASUREMENTS (Male/Female) Normal Values CONCLUSIONS This is a negative dobutamine stress echo Dr. Jose Carlos Dunn MD (Electronically Signed) Final Date: 09 February 2024 17:24
--- NOTE | 2024-02-09 17:27 | CA ---
Transthoracic Echo Report Name: Bogdan Aguirre Age: 54 Gender: M : 1970 Exam Date: 02/09/2024 12:30 Exam Location: [facility] Ht (in): 75 Wt (lb): 250 Ordering Physician: Katya Briscoe Attending/Referring Phys: [id number], Luis Felipe Clinical Study Manager Cecilia Nj, RDSURESH Procedure CPT: Indications: CP, LV function, AVR Cardiac Hx: Technical Quality: Poor Contrast 1: Total Dose (mL): Contrast 2: Total Dose (mL): MEASUREMENTS (Male / Female) Normal Values 2D ECHO LV Diastolic Diameter PLAX 5.5 cm 4.2 - 5.9 / 3.9 - 5.3 cm LV Systolic Diameter PLAX 3.5 cm IVS Diastolic Thickness 1.2 cm 0.6 - 1.0 / 0.6 - 0.9 cm LVPW Diastolic Thickness 1.2 cm 0.6 - 1.0 / 0.6 - 0.9 cm LV Relative Wall Thickness 0.4 RV Internal Dim ED PLAX 2.4 cm LVOT Diameter 2.1 cm LA Systolic Diameter LX 4.0 cm 3.0 - 4.0 / 2.7 - 3.8 cm LV Ejection Fraction MOD BP 55.0 % >= 55 % LV Diastolic Volume MOD 4C 112.2 cm??? LV Systolic Volume MOD 4C 63.9 cm??? LV Ejection Fraction MOD 4C 43.0 % LV Diastolic Length 4C 8.1 cm LV Systolic Length 4C 7.2 cm LV Diastolic Volume MOD 2C 69.7 cm??? LV Systolic Volume MOD 2C 39.8 cm??? LV Ejection Fraction MOD 2C 42.8 % LV Diastolic Length 2C 7.7 cm LV Systolic Length 2C 7.3 cm LA Volume 61.3 cm??? 18 - 58 / 22 - 52 cm??? LA Volume Index 24.8 cm???/m??? 16 - 28 cm???/m??? M-MODE Aortic Root Diameter MM 4.1 cm LA Systolic Diameter MM 4.1 cm LA Ao Ratio MM 1.0 DOPPLER AV Peak Velocity 178.0 cm/s AV Peak Gradient 12.7 mmHg AV Mean Velocity 131.1 cm/s AV Mean Gradient 7.5 mmHg AV Velocity Time Integral 38.1 cm MV Area PHT 2.7 cm??? Mitral E Point Velocity 77.8 cm/s Mitral A Point Velocity 65.0 cm/s Mitral E to A Ratio 1.2 MV Deceleration Time 285.7 ms TR Peak Velocity 187.9 cm/s TR Peak Gradient 14.1 mmHg FINDINGS Left Ventricle Left ventricular ejection fraction is estimated at 55-60 %. Mildly increased septal wall thickness. Left ventricular cavity size normal. No obvious regional wall motion abnormalities. Right Ventricle Normal right ventricular size and function. Right ventricular systolic pressure within normal limits. Right Atrium Normal right atrial size. Left Atrium Mildly increased left atrial volume. Mitral Valve Structurally normal mitral valve. Mild mitral regurgitation. Aortic Valve Normally functioning prosthetic aortic valve. No aortic stenosis. No aortic regurgitation. Tricuspid Valve Structurally normal tricuspid valve. Trace tricuspid regurgitation. Pulmonic Valve Structurally normal pulmonic valve. No pulmonic regurgitation. Trace pulmonic regurgitation. Pericardium No pericardial or pleural effusion. Aorta Mildly dilated aortic annulus. CONCLUSIONS Normal LV function Mild mitral regurgitation Normally functioning possibly valve in aortic position without significant stenosis or regurgitation Mildly dilated aortic annulus Previewed by: Dr. Jose Carlos Dunn MD (Electronically Signed) Final Date: 09 February 2024 17:27
[2024-02-09] MEDS: WARFARIN 7.5 MG TAB PO ONE (17:44)
[2024-02-10 07:42] LABS: INR 3.9 (<1.2); Prothrombin Time 38.1 sec (10.0-12.5)
[2024-02-10 08:56] VITALS: BP 136/70; PULSE 65; TEMP 97.8
--- NOTE | 2024-02-10 10:13 | P.PN ---
Subjective HISTORY OF PRESENT ILLNESS: This is a 54-year-old male with a past medical history significant for hypertension, hyperlipidemia, CVA, mechanical aortic valve replacement in 2020, and endocarditis in 2022. Patient follows with a lock technician out of town, Dr. Tabor. We have been asked to see the patient in consultation for chest pain. Patient examined at the bedside. Patient reports having an episode of chest pain yesterday that woke him up from sleep. Patient describes the pain as a sharp pain. He denies any shortness of breath. Patient states he has had not had discomfort like this in the past. Patient currently denies any chest pain or pressure. Patient's INR on admission was 2.3. Patient states he usually takes 7.5 mg of Coumadin Thursday and Thursday and 5 mg the remaining days. DIAGNOSTICS: - EKG reveals sinus mechanism with no signs of acute ischemia - CT angio thorax: No aortic dissection. Postsurgical changes to the aortic valve and root redemonstrated. Slight aneurysmal changes to the aortic root up to 4.2 cm. No acute findings seen to account for patient's symptoms. - Laboratory data: WBC 8.9. Hemoglobin 15.5. Platelet count 241. INR 2.3. Sodium 140. Potassium 3.6. BUN 14. Creatinine 0.84. Magnesium 2.0. Troponin negative x 1. - Most recent echocardiogram obtained in May 2023 revealed ejection fraction 5055% -Patient underwent cardiac catheterization in December 2020 revealing normal c oronary arteries 02/10/2024 Patient examined this morning at bedside. Patient denies chest pain or p ressure. He denies shortness of breath. Vital signs are stable. Patient underwent dobutamine stress test yesterday which was negative for ischemia. PHYSICAL EXAM: VITAL SIGNS: Reviewed. GENERAL: Well-developed in no acute distress. HEENT: Head is normocephalic. Pupils are equal, round. Sclerae anicteric. Mucous membranes of the mouth are moist. Neck supple. No JVD or thyromegaly LUNGS: Respirations even and unlabored. Lungs essentially clear to auscultation bilaterally. HEART: Regular rate and rhythm. S1 and S2 heard. ABDOMEN: Soft. Nondistended. Nontender. EXTREMITIES: Normal range of motion. No clubbing or cyanosis. Peripheral pulses intact. No lower extremity edema NEUROLOGIC: Awake and alert. Oriented x 3. 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 Please reconsult if needed. Nurse practitioner note has been reviewed by physician. Signing provider agrees with the documented findings, assessment, and plan of care documented by MACHINE CLIPPER as a scribe. Objective - Vital Signs Vital signs: Vital Signs Temp 97.8 F 02/10/24 07:00 Pulse 65 02/10/24 07:00 Resp 18 02/10/24 07:00 BP 136/70 02/10/24 07:00 Pulse Ox 98 02/10/24 08:50 FiO2 Intake & Output 02/09/24 02/10/24 02/10/24 18:59 06:59 18:59 Intake Total 240 Balance 240 Weight 113.398 kg Intake: Oral 240 Other: # Voids 1 2 - Labs CBC & Chem 7: 02/09/24 03:00 02/09/24 03:00 Labs: Abnormal Lab Results - Last 24 Hours (Table) 02/10/24 Range/Units 06:56 PT 38.1 H (10.0-12.5) sec INR 3.9 H (<1.2)
[2024-02-10] MEDS ORDERED: WARFARIN 0.5 MG TAB PO ONE (18:00)
--- NOTE | 2024-02-10 19:40 | P.DS ---
Providers Date of admission: 02/09/24 06:16 Expected date of discharge: 02/10/24 Attending physician: Teodoro Almeida Primary care physician: Sagar [place] Hospital Course: History of present illness; patient 54-year-old gentleman past medical history significant for hypertension, mechanical aortic valve presented to ER because of chest pain. Patient he was all right this morning when he was woken from sleep with chest pain that was left-sided, sharp, nonradiating, no aggravating or relieving factor associated chest pain. Patient was complaining of nausea and diaphoresis at the time. There was no complaint of lightheadedness or dizziness. There is no complaint of palpitation. Denied any shortness of breath. There was no complaint orthopnea or PND. Because of this chest pain, patient came to the ER Initial lab work done in the ER showed WBC 8.9, hemoglobin 15.6, INR 2.3, sodium 140, potassium 3.6, BUN 14, creatinine 0.84, glucose 116, troponin 0.014, lipase 428 EKG done in the ER showed heart rate of 78, no ST segment elevation or depression seen, no T-wave inversions seen. CT thoracic aorta done showed no aortic dissection, slight aneurysmal change of the aortic root up to 4.2 cm. Patient admitted to internal medicine service February 10, 2024: 2D echocardiogram and dobutamine stress echocardiogram was negative. Pain felt to be musculoskeletal and is rather sharp. Will follow-up with his section leader and machine setter. Discussed On examination: VITAL SIGNS: 97.8, 65, 18, 136/70, 98% room air GENERAL APPEARANCE: Up in chair, comfortable HEENT: Normal external appearance of nose and ear. Oral cavity normal EYES: Pupils equal. Conjunctiva normal. NECK: JVD not raised. Mass not palpable. RESPIRATORY: Respiratory effort normal. Lungs clear to auscultation. CARDIOVASCULAR: First and second sounds normal. No edema. ABDOMEN: Soft. Liver and spleen not palpable. No tenderness. No mass palpable. PSYCHIATRY: Alert and oriented x3. Mood and affect normal. PHYSICAL EXAMINATION: Vitals: 97.8, 65, 18, 136/70, 98% room air GENERAL: Up in chair comfortable HEENT: Pupils are round and equally reacting to light. EOMI. No scleral icterus. No conjunctival pallor. Normocephalic, atraumatic. No pharyngeal erythema. No thyromegaly. CARDIOVASCULAR: S1 and S2 present. No murmurs, rubs, or gallops. PULMONARY: Chest is clear to auscultation, no wheezing or crackles. ABDOMEN: Soft, nontender, nondistended, normoactive bowel sounds. No palpable organomegaly. MUSCULOSKELETAL: No joint swelling or deformity. EXTREMITIES: No cyanosis, clubbing, or pedal edema. NEUROLOGICAL: Gross neurological examination did not reveal any focal deficits. SKIN: No rashes. Investigations: Dobutamine stress echocardiogram: Unremarkable 2D echocardiogram: EF 55 to 60% Assessment and plan Chest pain, -likely musculoskeletal mechanical aortic valve replacement secondary to severe aortic insufficiency, 2020 History of CVA x 22021 with residual right-sided weakness and speech issues per patient Hypertension Hyperlipidemia History of aortic valve endocarditis, 2022 treated with IV antibiotics Disposition: Home Past Medical History Past Medical History: Heart Failure, CVA/TIA, Hyperlipidemia, Hypertension Additional Past Medical History / Comment(s): kidney stones; possible CHRIS- patient was seen by pulmonology in 03/2019 but didn't follow up with testing for CHRIS History of Any Multi-Drug Resistant Organisms: None Reported Past Surgical History: Appendectomy, Heart Catheterization Additional Past Surgical History / Comment(s): kidney stones procedure,YOVANY, aortic valve/ascending aorta replaced on 03/04/21 with On-X mechanical valve and gel weave graft, aortic valve replaced Past Anesthesia/Blood Transfusion Reactions: Postoperative Nausea & Vomiting (PONV) Past Psychological History: Depression Smoking Status: Former smoker Past Alcohol Use History: None Reported Past Drug Use History: None Reported Patient Condition at Discharge: Stable Plan - Discharge Summary New Discharge Prescriptions: Continue Metoprolol Succinate (ER) [Toprol XL] 25 mg PO BID Multivitamins, Thera [Multivitamin (formulary)] 1 tab PO DAILY Escitalopram Oxalate [Lexapro] 10 mg PO DAILY Calcium Carbonate [Calcium] 600 mg PO DAILY Aspirin 81 mg PO DAILY #0 Pantoprazole [Protonix] 40 mg PO DAILY Rosuvastatin Calcium 5 mg PO DAILY Olean-3/Dha/Epa/Fish Oil [Fish Oil 1,000 mg Softgel] 2 cap PO DAILY Losartan-Hctz 50-12.5 mg [Hyzaar 50-12.5] 1 tab PO DAILY Changed Warfarin [Coumadin] 7.5 mg PO MOWEFRSA@2100 #0 Warfarin [Coumadin] 5 mg PO SUTUTH@2100 #0 Discharge Medication List Aspirin 81 mg PO DAILY #0 03/10/21 [Rx] Metoprolol Succinate (ER) [Toprol XL] 25 mg PO BID 04/13/21 [History] Multivitamins, Thera [Multivitamin (formulary)] 1 tab PO DAILY 05/13/23 [History] Pantoprazole [Protonix] 40 mg PO DAILY 05/13/23 [History] Rosuvastatin Calcium 5 mg PO DAILY 05/13/23 [History] Calcium Carbonate [Calcium] 600 mg PO DAILY 02/09/24 [History] Escitalopram Oxalate [Lexapro] 10 mg PO DAILY 02/09/24 [History] Losartan-Hctz 50-12.5 mg [Hyzaar 50-12.5] 1 tab PO DAILY 02/09/24 [History] Olean-3/Dha/Epa/Fish Oil [Fish Oil 1,000 mg Softgel] 2 cap PO DAILY 02/09/24 [History] Warfarin [Coumadin] 5 mg PO SUTUTH@2100 #0 02/10/24 [Rx] Warfarin [Coumadin] 7.5 mg PO MOWEFRSA@2100 #0 02/10/24 [Rx] Follow up Appointment(s)/Referral(s): dr Luis [Other] - 1 Week Sagar Shannon DO [Primary Care Provider] - 1-2 days Discharge Disposition: HOME SELF-CARE
== END 2024-02-10 12:57 | disposition home or self-care (01) ==
LOC: EC 02:47 → 6NMEDSUR 06:16
PROVIDERS: ADMIT Hospitalist; ATTEND Hospitalist
DX: R07.89 Other chest pain (principal); I35.1 Nonrheumatic aortic (valve) insufficiency; Q25.43 Congenital aneurysm of aorta; E78.5 Hyperlipidemia, unspecified; I10 Essential (primary) hypertension; I69.351 Hemiplegia and hemiparesis following cerebral infarction affecting right dominant side; I69.328 Other speech and language deficits following cerebral infarction; R11.0 Nausea; R61 Generalized hyperhidrosis; M54.9 Dorsalgia, unspecified; Z79.01 Long term (current) use of anticoagulants; Z79.82 Long term (current) use of aspirin; Z79.899 Other long term (current) drug therapy; Z91.041 Radiographic dye allergy status; Z87.891 Personal history of nicotine dependence; Z86.79 Personal history of other diseases of the circulatory system; Z95.2 Presence of prosthetic heart valve
CPT/HCPCS: 96374; 96375; 99285; 36415; 94760; 93005; 93306; 93351; 80053; 83690; 83735; 84484; 85025; 85610 ×2; 85730; 76705; 71275; 74174; G0378 ×2; J1250; J1200; J3490; J1170; Q9967; J2919

== ENCOUNTER → 2024-09-26 | Outpatient (CLI) | payer BC ==
--- NOTE | 2024-09-26 12:41 | CT ---
EXAMINATION TYPE: CT abdomen pelvis w con DATE OF EXAM: 09/26/2024 COMPARISON: Prior CT February 09, 2024 CLINICAL INDICATION: Male, 54 years old with history of R10.84 ABD PAIN R10.2 PELVIC PAIN; PHH, blood in stool, abdominal and pelvic pain TECHNIQUE: Performed with Oral Contrast and with IV Contrast, patient injected with 100 mL of Isovue 300. CT DLP: 2125.30 mGycm Automated exposure control for dose reduction was used. FINDINGS: Lung bases: Surgical change to aortic valve is redemonstrated LIVER/GB: Dependent small stones and/or gallbladder sludge redemonstrated. Liver remains diffusely lo w dense consistent with fatty infiltrative hepatocellular disease. PANCREAS: No significant abnormality is seen. SPLEEN: No significant abnormality is seen. ADRENALS: No significant abnormality is seen. KIDNEYS: No significant abnormality is seen. BOWEL: Oral contrast reaches level of rectum. No abnormal small or large bowel dilatation. GENITAL ORGANS: No gross abnormality seen. LYMPH NODES: No greater than 1cm abdominal or pelvic lymph nodes are appreciated. OSSEOUS STRUCTURES: No significant abnormality is seen. OTHER: Stable small fat-containing left inguinal hernia. IMPRESSION: No suspicious new or acute findings identified. [facility] Bianka Munson, , 09/26/2024 12:38 PM
== END | disposition home or self-care (01) ==
LOC: RADCTMAIN 10:41
PROVIDERS: ATTEND Family Medicine
DX: R10.84 Generalized abdominal pain (principal); R10.2 Pelvic and perineal pain
CPT/HCPCS: 74177; Q9967

== ENCOUNTER 2024-11-19 19:32 | Inpatient (IN) | payer BC ==
--- NOTE | 2024-11-19 19:43 | ED ---
Dizziness HPI - General Chief Complaint: Dizziness Stated Complaint: dizziness Time Seen by Provider: 11/19/24 19:40 Source: patient, RN notes reviewed, old records reviewed Mode of arrival: ambulatory Limitations: no limitations - History of Present Illness Initial Comments: This is a 54 male presents with dizziness room spinning off-balance unable to drive event occurring around 2 PM and persistent. Patient has a strong history of CVA open cardiac surgery as well as stroke x 2. Right-sided permanent deficit. Patient is on blood thinners MD Complaint: dizziness, lightheadedness, near syncope -: hour(s) (6) Timing: sudden onset Description: sense of movement, "room spinning", lightheadedness, off-balance, difficulty walking, near-syncope History of Same: No Severity: moderate Improves With: nothing Worsens With: nothing Associated Symptoms: denies other symptoms - Related Data Home Medications Medication Instructions Recorded Confirmed Metoprolol Succinate (ER) [Toprol 25 mg PO BID 04/13/21 11/20/24 XL] Multivitamins, Thera [Multivitamin 1 tab PO DAILY 05/13/23 11/20/24 (formulary)] Pantoprazole [Protonix] 40 mg PO DAILY 05/13/23 11/20/24 Rosuvastatin Calcium 5 mg PO DAILY 05/13/23 11/20/24 Brady-3/Dha/Epa/Fish Oil [Fish Oil 1 cap PO DAILY 02/09/24 11/20/24 1,000 mg Softgel] Escitalopram [Lexapro] 20 mg PO DAILY 11/20/24 11/20/24 Losartan/Hydrochlorothiazide 1 tab PO DAILY 11/20/24 11/20/24 [Losartan-Hctz 100-25 mg Tab] Warfarin [Coumadin] 5 mg PO SUTUTHSA@209911/20/24 11/20/24 Warfarin [Coumadin] 7.5 mg PO MOWEFR@2100 11/20/24 11/20/24 Previous Rx's Medication Instructions Recorded Aspirin 81 mg PO DAILY #0 03/10/21 Allergies Allergy/AdvReac Type Severity Reaction Status Date / Time Iodinated Contrast Media AdvReac Severe Vomiting Verified 11/20/24 09:45 Review of Systems ROS Statement: Those systems with pertinent positive or pertinent negative responses have been documented in the HPI. ROS Other: All systems not noted in ROS Statement are negative. Past Medical History Past Medical History: Heart Failure, CVA/TIA, Hyperlipidemia, Hypertension Additional Past Medical History / Comment(s): kidney stones; possible CHRIS- patient was seen by pulmonology in 03/2019 but didn't follow up with testing for CHRIS History of Any Multi-Drug Resistant Organisms: None Reported Past Surgical History: Appendectomy, Heart Catheterization Additional Past Surgical History / Comment(s): kidney stones procedure,YOVANY, aortic valve/ascending aorta replaced on 03/04/21 with On-X mechanical valve and gel weave graft, aortic valve replaced Past Anesthesia/Blood Transfusion Reactions: Postoperative Nausea & Vomiting (PONV) Past Psychological History: Depression Smoking Status: Former smoker Past Alcohol Use History: None Reported Past Drug Use History: None Reported - Past Family History Mother Family Medical History: Cancer Additional Family Medical History / Comment(s): still alive at 78 y/o Father Family Medical History: CVA/TIA Additional Family Medical History / Comment(s): at 86 y/o General Exam - General Exam Comments Initial Comments: NIH of 1 Limitations: no limitations General appearance: alert, in no apparent distress Head exam: Present: atraumatic, normocephalic, normal inspection Eye exam: Present: normal appearance, PERRL, EOMI. Absent: scleral icterus, conjunctival injection, periorbital swelling ENT exam: Present: normal exam, mucous membranes moist Neck exam: Present: normal inspection. Absent: tenderness, meningismus, lymphadenopathy Respiratory exam: Present: normal lung sounds bilaterally. Absent: respiratory distress, wheezes, rales, rhonchi, stridor Cardiovascular Exam: Present: regular rate, normal rhythm, normal heart sounds. Absent: systolic murmur, diastolic murmur, rubs, gallop, clicks GI/Abdominal exam: Present: soft, normal bowel sounds. Absent: distended, tenderness, guarding, rebound, rigid Extremities exam: Present: normal inspection, full ROM, normal capillary refill. Absent: tenderness, pedal edema, joint swelling, calf tenderness Back exam: Present: normal inspection Neurological exam: Present: alert, oriented X3, CN II-XII intact Psychiatric exam: Present: normal affect, normal mood Skin exam: Present: warm, dry, intact, normal color. Absent: rash Course Vital Signs 11/19/24 11/19/24 11/19/24 19:34 22:00 23:00 Temperature 98.4 F Pulse Rate 84 85 92 Pulse Rate [ Child Protection Specialist ] Respiratory 18 18 16 Rate Blood Pressure 166/76 106/73 112/78 Blood Pressure [Left Arm] O2 Sat by Pulse 98 95 92 L Oximetry 11/20/24 11/20/24 11/20/24 00:00 01:15 05:20 Temperature Pulse Rate 82 78 89 Pulse Rate [ Child Protection Specialist ] Respiratory 18 18 18 Rate Blood Pressure 112/78 130/80 114/80 Blood Pressure [Left Arm] O2 Sat by Pulse 94 L 92 L 94 L Oximetry 11/20/24 11/20/24 11/20/24 08:20 13:30 16:53 Temperature 98.8 F Pulse Rate 102 H 95 98 Pulse Rate [ Child Protection Specialist ] Respiratory 18 16 20 Rate Blood Pressure 152/89 145/81 139/80 Blood Pressure [Left Arm] O2 Sat by Pulse 95 98 97 Oximetry 11/20/24 11/20/24 11/21/24 20:51 22:36 04:00 Temperature 97.7 F 97.7 F 98.0 F Pulse Rate 86 Pulse Rate [ 75 Child Protection Specialist ] Respiratory 18 18 16 Rate Blood Pressure 148/84 Blood Pressure 133/75 142/80 [Left Arm] O2 Sat by Pulse 98 97 97 Oximetry 11/21/24 11/21/24 11/21/24 09:17 13:48 16:02 Temperature Pulse Rate 69 68 84 Pulse Rate [ Child Protection Specialist ] Respiratory 18 18 18 Rate Blood Pressure 133/83 133/79 160/90 Blood Pressure [Left Arm] O2 Sat by Pulse 98 98 98 Oximetry 11/21/24 11/21/24 11/21/24 17:00 18:00 19:00 Temperature Pulse Rate 78 76 75 Pulse Rate [ Child Protection Specialist ] Respiratory 18 18 18 Rate Blood Pressure 128/85 144/90 150/85 Blood Pressure [Left Arm] O2 Sat by Pulse Oximetry 11/21/24 11/21/24 20:14 21:22 Temperature Pulse Rate 74 80 Pulse Rate [ Child Protection Specialist ] Respiratory 18 18 Rate Blood Pressure 160/92 154/90 Blood Pressure [Left Arm] O2 Sat by Pulse 97 94 L Oximetry - Reevaluation(s) Reevaluation #1: 11/19/24 21:07 Medical records reviewed Code stroke called on patient evaluation Reevaluation #2: 11/19/24 21:07 Patient has no improvement in symptoms here in the ER Reevaluation #3: 11/19/24 21:07 Patient informed of results questions answered Reevaluation #4: Was pt. sent in by a medical professional or institution ([facility], [employer], urgent care, hospital, or retirement...) When possible be specific @ -no Did you speak to anyone other than the patient for history (EMS, parent, family, police, friend...)? What history was obtained from this source @ -no Did you review nursing and triage notes (agree or disagree)? Why? @ -agree Are old charts reviewed (outside hosp., previous admission, EMS record, old EKG, old radiological studies, urgent care reports/EKG's, retirement records)? Report findings @ -yes Differential Diagnosis (chest pain, altered mental status, abdominal pain women, abdominal pain men, vaginal bleeding, weakness, fever, dyspnea, syncope, headache, dizziness, GI bleed, back pain, seizure, CVA, palpatations, mental health, musculoskeletal)? @ -prior EKG interpreted by me (3pts min.). @ -yes X-rays interpreted by me (1pt min.). @ -no CT interpreted by me (1pt min.). @ -yes positive for acute CVA U/S interpreted by me (1pt. min.). @ -no What testing was considered but not performed or refused? (CT, X-rays, U/S, labs)? Why? @ -none What meds were considered but not given or refused? Why? @ -none Did you discuss the management of the patient with other professionals (professionals i.e. [facility], [employer], lab, RT, psych nurse, nephrology social worker, x ray developing machine operator, teacher, global safety officer, disease case manager rn)? Give summary @ -no Was smoking cessation discussed for >3mins.? @ -no Was critical care preformed (if so, how long)? @ -no Were there social determinants of health that impacted care today? How? (Homelessness, low income, unemployed, alcoholism, drug addiction, transportation, low edu. Level, literacy, decrease access to med. care, alf, rehab)? @ -none Was there de-escalation of care discussed even if they declined (Discuss DNR or withdrawal of care, Hospice)? DNR status @ -no What co-morbidities impacted this encounter? (DM, HTN, Smoking, COPD, CAD, Cancer, CVA, ARF, Chemo, Hep., AIDS, mental health diagnosis, sleep apnea, morbid obesity)? @ -none Was patient admitted / discharged? Hospital course, mention meds given and route, prescriptions, significant lab abnormalities, going to OR and other pertinent info. @ - 54 male will be admitted for vertigo, acute CVA Admitted CVA with vertigo Undiagnosed new problem with uncertain prognosis? @ -no Drug Therapy requiring intensive monitoring for toxicity (Heparin, Nitro, Insulin, Cardizem)? @ -no Were any procedures done? @ -no Diagnosis/symptom? @ - Acute, or Chronic, or Acute on Chronic? @ -Acute Uncomplicated (without systemic symptoms) or Complicated (systemic symptoms)? @ -Complicated Side effects of treatment? @ -no Exacerbation, Progression, or Severe Exacerbation? @ -exacerbation Poses a threat to life or bodily function? How? (Chest pain, USA, VT, pneumonia, PE, COPD, DKA, ARF, appy, cholecystitis, CVA, Diverticulitis, Homicidal, Suicida l, threat to staff... and all critical care pts) @ -yes acute CVA Reevaluation #5: Differential CVA Ischemic stroke, hemorrhagic stroke, brain tumor, atypical migraine, Wernicke's encephalopathy, seizure, multiple sclerosis, meningitis, encephalitis, hypoglycemia, Guillain-Stewart, electrolytes disturbance, myasthenia gravis.... This is not meant to be an all-inclusive list - Consultations Consultation #1: Spoke with MAUREEN harris for admission EKG Findings - EKG Comments: EKG Findings:: EKG is sinus 82 WV 312 QRS 109 QTc 411 - EKG Results: EKG: interpreted by EDOUARDD Medical Decision Making - Medical Decision Making 54 male will be admitted for vertigo, acute CVA - Lab Data Result diagrams: 11/22/24 06:37 11/22/24 06:37 Lab Results 11/19/24 11/19/24 11/19/24 Range/Units 19:53 19:53 19:53 WBC 9.4 (3.8-10.6) k/uL RBC 4.99 (4.30-5.90) m/uL Hgb 14.6 (13.0-17.5) gm/dL Hct 41.4 (39.0-53.0) % MCV 82.9 (80.0-100.0) fL MCH 29.3 (25.0-35.0) pg MCHC 35.4 (31.0-37.0) g/dL RDW 13.4 (11.5-15.5) % Plt Count 286 (150-450) k/uL MPV 7.0 Neutrophils % 64 % Lymphocytes % 27 % Monocytes % 6 % Eosinophils % 2 % Basophils % 1 % Neutrophils # 5.9 (1.3-7.7) k/uL Lymphocytes # 2.5 (1.0-4.8) k/uL Monocytes # 0.6 (0-1.0) k/uL Eosinophils # 0.2 (0-0.7) k/uL Basophils # 0.1 (0-0.2) k/uL PT 18.5 H (10.0-12.5) sec INR 1.8 H (<1.2) APTT 29.5 (22.0-30.0) sec Sodium 139 (137-145) mmol/L Potassium 3.0 L (3.5-5.1) mmol/L Chloride 103 (98-107) mmol/L Carbon Dioxide 24 (22-30) mmol/L Anion Gap 12 mmol/L BUN 13 (9-20) mg/dL Creatinine 0.87 (0.66-1.25) mg/dL Est GFR (CKD-EPI)AfAm >90 (>60 ml/min/1.73 sqM) Est GFR (CKD-EPI)NonAf >90 (>60 ml/min/1.73 sqM) Glucose 104 H (74-99) mg/dL POC Glucose (mg/dL) (70-110) mg/dL POC Glu Freight Rate Analyst ID Lactic Ac Sepsis Rflx Plasma Lactic Acid Jhon (0.7-2.0) mmol/L Calcium 9.6 (8.4-10.2) mg/dL Phosphorus 3.5 (2.5-4.5) mg/dL Magnesium 1.8 (1.6-2.3) mg/dL Total Bilirubin 1.0 (0.2-1.3) mg/dL AST 37 (17-59) U/L ALT 31 (4-49) U/L Alkaline Phosphatase 105 (38-126) U/L Troponin I (0.000-0.034) ng/mL NT-Pro-B Natriuret Pep <20 pg/mL Total Protein 7.3 (6.3-8.2) g/dL Albumin 4.6 (3.5-5.0) g/dL 11/19/24 11/19/24 11/19/24 Range/Units 19:53 19:53 20:00 WBC (3.8-10.6) k/uL RBC (4.30-5.90) m/uL Hgb (13.0-17.5) gm/dL Hct (39.0-53.0) % MCV (80.0-100.0) fL MCH (25.0-35.0) pg MCHC (31.0-37.0) g/dL RDW (11.5-15.5) % Plt Count (150-450) k/uL MPV Neutrophils % % Lymphocytes % % Monocytes % % Eosinophils % % Basophils % % Neutrophils # (1.3-7.7) k/uL Lymphocytes # (1.0-4.8) k/uL Monocytes # (0-1.0) k/uL Eosinophils # (0-0.7) k/uL Basophils # (0-0.2) k/uL PT (10.0-12.5) sec INR (<1.2) APTT (22.0-30.0) sec Sodium (137-145) mmol/L Potassium (3.5-5.1) mmol/L Chloride (98-107) mmol/L Carbon Dioxide (22-30) mmol/L Anion Gap mmol/L BUN (9-20) mg/dL Creatinine (0.66-1.25) mg/dL Est GFR (CKD-EPI)AfAm (>60 ml/min/1.73 sqM) Est GFR (CKD-EPI)NonAf (>60 ml/min/1.73 sqM) Glucose (74-99) mg/dL POC Glucose (mg/dL) 107 (70-110) mg/dL POC Glu Freight Rate Analyst ID Gen Robledo Lactic Ac Sepsis Rflx Plasma Lactic Acid Jhon 2.2 H* (0.7-2.0) mmol/L Calcium (8.4-10.2) mg/dL Phosphorus (2.5-4.5) mg/dL Magnesium (1.6-2.3) mg/dL Total Bilirubin (0.2-1.3) mg/dL AST (17-59) U/L ALT (4-49) U/L Alkaline Phosphatase (38-126) U/L Troponin I 0.015 (0.000-0.034) ng/mL NT-Pro-B Natriuret Pep pg/mL Total Protein (6.3-8.2) g/dL Albumin (3.5-5.0) g/dL 11/19/24 Range/Units 20:37 WBC (3.8-10.6) k/uL RBC (4.30-5.90) m/uL Hgb (13.0-17.5) gm/dL Hct (39.0-53.0) % MCV (80.0-100.0) fL MCH (25.0-35.0) pg MCHC (31.0-37.0) g/dL RDW (11.5-15.5) % Plt Count (150-450) k/uL MPV Neutrophils % % Lymphocytes % % Monocytes % % Eosinophils % % Basophils % % Neutrophils # (1.3-7.7) k/uL Lymphocytes # (1.0-4.8) k/uL Monocytes # (0-1.0) k/uL Eosinophils # (0-0.7) k/uL Basophils # (0-0.2) k/uL PT (10.0-12.5) sec INR (<1.2) APTT (22.0-30.0) sec Sodium (137-145) mmol/L Potassium (3.5-5.1) mmol/L Chloride (98-107) mmol/L Carbon Dioxide (22-30) mmol/L Anion Gap mmol/L BUN (9-20) mg/dL Creatinine (0.66-1.25) mg/dL Est GFR (CKD-EPI)AfAm (>60 ml/min/1.73 sqM) Est GFR (CKD-EPI)NonAf (>60 ml/min/1.73 sqM) Glucose (74-99) mg/dL POC Glucose (mg/dL) (70-110) mg/dL POC Glu Freight Rate Analyst ID Lactic Ac Sepsis Rflx Y Plasma Lactic Acid Jhon (0.7-2.0) mmol/L Calcium (8.4-10.2) mg/dL Phosphorus (2.5-4.5) mg/dL Magnesium (1.6-2.3) mg/dL Total Bilirubin (0.2-1.3) mg/dL AST (17-59) U/L ALT (4-49) U/L Alkaline Phosphatase (38-126) U/L Troponin I (0.000-0.034) ng/mL NT-Pro-B Natriuret Pep pg/mL Total Protein (6.3-8.2) g/dL Albumin (3.5-5.0) g/dL - Radiology Data Radiology results: report reviewed (CT brain CTA head neck positive CVA), image reviewed Critical Care Time Critical Care Time: Yes Total Critical Care Time: 31 Disposition Clinical Impression: Cerebrovascular accident (CVA) Disposition: ADMITTED IP TO THIS [facility] Condition: Serious Is patient prescribed a controlled substance at d/c from ED?: No Time of Disposition: 21:00
[2024-11-19 20:02] LABS: Glucose,Whole Blood 107 mg/dL (70-110)
[2024-11-19] MEDS: SODIUM CHLORIDE 0.9% 1,000 ML IV ONE (20:02)
[2024-11-19 20:12] LABS: Basophils # (A) 0.1 k/uL (0-0.2); Basophils % (A) 1 %; Eosinophils # (A) 0.2 k/uL (0-0.7); Eosinophils % (A) 2 %; HCT 41.4 % (39.0-53.0); HGB 14.6 gm/dL (13.0-17.5); Lymphocytes # (A) 2.5 k/uL (1.0-4.8); Lymphocytes % (A) 27 %; MCH 29.3 pg (25.0-35.0); MCHC 35.4 g/dL (31.0-37.0); MCV 82.9 fL (80.0-100.0); Monocytes # (A) 0.6 k/uL (0-1.0); Monocytes % (A) 6 %; Neutrophils # (A) 5.9 k/uL (1.3-7.7); Neutrophils % (A) 64 %; Platelet Count 286 k/uL (150-450); RBC 4.99 m/uL (4.30-5.90); RDW 13.4 % (11.5-15.5); WBC 9.4 k/uL (3.8-10.6)
[2024-11-19 20:28] LABS: ALT 31 U/L (4-49); AST 37 U/L (17-59); African American GFR (CKD) >90 (>60 ml/min/1.73 sqM); Albumin 4.6 g/dL (3.5-5.0); Alkaline Phosphatase 105 U/L (38-126); Anion Gap 12 mmol/L; Blood Urea Nitrogen 13 mg/dL (9-20); Calcium 9.6 mg/dL (8.4-10.2); Carbon Dioxide 24 mmol/L (22-30); Chloride 103 mmol/L (98-107); Glucose 104 mg/dL (74-99); Magnesium 1.8 mg/dL (1.6-2.3); Non-African American GFR(CKD) >90 (>60 ml/min/1.73 sqM); Phosphorus 3.5 mg/dL (2.5-4.5); Sodium 139 mmol/L (137-145); Total Protein 7.3 g/dL (6.3-8.2)
[2024-11-19] MEDS: methylPREDNISolone SOD SUCCI 125 MG/2 ML VIAL IV STA (20:29)
[2024-11-19 20:34] LABS: NT-Pro-B-Type Natriuretic Pept <20 pg/mL
[2024-11-19] MEDS: diphenhydrAMINE 50 MG/ML 1 ML VIAL IVP STA (20:55)
[2024-11-19] MEDS: FAMOTIDINE 20 MG/2 ML VIAL IV STA (20:55)
[2024-11-19 20:57] LABS: INR 1.8 (<1.2); Partial Thromboplastin Time 29.5 sec (22.0-30.0); Prothrombin Time 18.5 sec (10.0-12.5)
[2024-11-19] MEDS: SODIUM CHLORIDE 0.9% 1,000 ML IV SCH (20:58)
--- NOTE | 2024-11-19 20:59 | CT ---
EXAMINATION TYPE: CODE STROKE: CT brain wo contr DATE OF EXAM: 11/19/2024 8:50 PM COMPARISON: None. CLINICAL INDICATION: Male, 54 years old with history of cva, CODE STROKE: Patient came to ER for dizz iness and ringing in head. States that this started an hour ago. Hx of stroke. Delay of CT due to kimmy ting on meds and nurse. TECHNIQUE: Brain: Axial CT images of the brain were obtained with coronal and sagittal reformats created and rev iewed. Contrast used: None. Oral contrast used: None. CT DLP: 1184.9 mGycm, Automated exposure control for dose reduction was used. FINDINGS: Brain: Extra-axial spaces: No abnormal extra-axial fluid collections. Ventricular system: Within normal limits Cerebral parenchyma: Loss of cohen-white matter differentiation involving the left parietal lobe serie s 2033 image 61. Encephalomalacia of the left temporal lobe, similar. No acute intraparenchymal hemor rhage or mass effect. The cohen-white junction is well differentiated. Cerebellum: Unremarkable. Mass effect: No evidence of midline shift. Intracranial vasculature: unremarkable Soft tissues: Normal. Calvarium/osseous structures: No depressed skull fracture. Paranasal sinuses and mastoid air cells: Mild scattered paranasal sinus disease. Visualized orbits: Orbital contents are intact. IMPRESSION: 1. Area of cohen-white matter loss of differentiation in the left parietal lobe concerning for acute CVA. 2. Remote injury to the left temporal lobe with encephalomalacia. Findings communicated to Sagar Loya DO on 11/19/2024 8:[address] Antonio Landin. [facility], , 11/19/2024 8:57 PM
--- NOTE | 2024-11-19 21:12 | CT ---
EXAMINATION TYPE: CT angio head neck DATE OF EXAM: 11/19/2024 9:00 PM COMPARISON: CT head same day. CLINICAL INDICATION: Male, 54 years old with history of cva; PHH, CODE STROKE: Patient came to ER for dizziness and ringing in head. States that this started an hour ago. Hx of stroke. Delay of CT due t o waiting on meds and nurse. TECHNIQUE: Axially acquired helical CT angiogram of the head and neck was obtained with contrast. Axi al images are supplemented with 3D reconstructions and MIP images which were post-processed at an in dependent workstation. NASCET criteria used. Contrast used:65ml mL of Isovue 370 with IV Contrast, Oral contrast used: None. CT DLP: 965.8 mGycm, Automated exposure control for dose reduction was used. FINDINGS: CTA HEAD: No evidence of acute intracranial hemorrhage, mass effect, or midline shift. The ventricles, sulci, a nd cisterns are unremarkable. Vertebral arteries: The vertebral arteries are patent. Vertebral artery dominance: Codominant Basilar artery: The basilar artery is intact. The basilar artery bifurcation is normal. Internal Carotid arteries: The cervical, petrous, cavernous and supraclinoid segments are normal. ALLI: Patent with no evidence of aneurysm. ACOM: Present without evidence of aneurysm. MCA: Patent with no evidence of aneurysm. TRAVELING SALES REPRESENTATIVE: Patent with no evidence of aneurysm. PCOM: Hypoplastic bilaterally. Dural sinuses: Patent. CTA NECK: Right Carotid System: The common carotid artery and external carotid artery are patent. The carotid bifurcation demonstrate s no evidence of hemodynamically significant stenosis. The remaining portions of the internal carotid artery demonstrate normal size without significant narrowing. Left Carotid System: The common carotid artery and external carotid artery are patent. The carotid bifurcation demonstrate s no evidence of hemodynamically significant stenosis. The remaining portions of the internal carotid artery demonstrate normal size without significant narrowing. Vertebral arteries are patent without evidence hemodynamically significant stenosis. There is a three-vessel aortic arch. The origins of the great vessels are patent. No evidence of hemo dynamically significant stenosis. IMPRESSION: 1. No evidence of dissection of the cervical internal carotid arteries or vertebral arteries. 2. No any evidence of significant stenosis at the carotid bifurcations. 3. No evidence of intracranial high-grade stenosis or intracranial aneurysm. [facility], , 11/19/2024 9:10 PM
[2024-11-19] MEDS ORDERED: NALOXONE 0.4 MG/ML 1 ML VIAL IV PRN (22:49)
[2024-11-20 02:32] LABS: Appearance,Urine Clear (Clear); Bilirubin,Urine Negative (Negative); Blood,Urine Negative (Negative); Color,Urine Light Yellow; Glucose,Urine (UA) Negative (Negative); Ketones,Urine Trace (Negative); Leukocyte Esterase,Urine Negative (Negative); Nitrite,Urine Negative (Negative); Protein,Urine Negative (Negative); Urobilinogen,Urine <2.0 mg/dL (<2.0)
[2024-11-20 02:50] LABS: Specific Gravity,Urine >1.050 (1.001-1.035)
[2024-11-20] MEDS ORDERED: IOPAMIDOL CONTRAST (ORAL USE) VIAL PO PRN (10:33)
[2024-11-20] MEDS: METOPROLOL SUCCINATE (ER) 25 MG TAB.ER.24H PO SCH (11:27)
[2024-11-20] MEDS: ATORVASTATIN 20 MG TAB PO SCH (11:27)
[2024-11-20] MEDS: traMADol 50 MG TAB PO PRN (11:27)
[2024-11-20] MEDS: ENOXAPARIN 120 MG/0.8 ML SYRINGE SQ SCH (11:33)
--- NOTE | 2024-11-20 11:42 | P.HPIM ---
History of Present Illness Patient came in with complaints of lightheadedness which is mostly room spinning. Patient believes he had a CVA. Patient history of cerebrovascular accident twice in the past. Patient has history of a Mechanical heart valve for which patient is on Coumadin did not receive his Coumadin yesterday his INR is 1.9 his recommended therapeutic ranges around 2.5-3.5. Patient had a CT of the head which showed areas of cohen-white matter loss differentiation in the parietal lobe concerning for acute cerebrovascular accident, there is also a encephalomalacia on the left temporal lobe from his previous strokes patient has some residual weakness very mild on the right side from his previous stroke patient is not sure whether he has increased weakness. Patient is admitted neurology was consulted patient is complaining of sharp pain across the lower abdominal quadrants urinalysis is within normal limits patient does not have any urinary retention. REVIEW OF SYSTEMS: All other systems are negative except those mentioned in the HPI PHYSICAL EXAMINATION: GENERAL: The patient is alert and oriented x3, not in any acute distress. Obese HEENT: Pupils are round and equally reacting to light. EOMI. No scleral icterus. No conjunctival pallor. Normocephalic, atraumatic. No pharyngeal erythema. No thyromegaly. CARDIOVASCULAR: S1 and S2 present. No murmurs, rubs, or gallops. PULMONARY: Chest is clear to auscultation, no wheezing or crackles. ABDOMEN: Soft, tenderness in the bilateral lower abdominal quadrants, nondistended, normoactive bowel sounds. No palpable organomegaly. MUSCULOSKELETAL: No joint swelling or deformity. EXTREMITIES: No cyanosis, clubbing, or pedal edema. NEUROLOGICAL: Minimal weakness on the right side from his previous stroke does not appear to have any new weakness SKIN: No rashes. Assessment and plan -Rule out cerebrovascular accident neurology was consulted CT is concerning for acute stroke patient may need an MRI continue with Coumadin we will give 10 mg of Coumadin today repeat INR tomorrow patient is also on aspirin which will be continued -Abdominal pain etiology is not clear will obtain a CT scan of the abdomen Dizziness patient is bit hypotensive patient is not clear whether it is vertigo or lightheadedness patient blood pressure is slightly lower we will hold off on lisinopril hydrochlorothiazide he is taking it at home -Mechanical heart valve for which patient is on Coumadin subtherapeutic on Coumadin we will bridge him with Lovenox Hypertension patient is hypotensive hold off antihypertensive medications -Hyperlipidemia -Depression DVT prophylaxis: On Coumadin Past Medical History Past Medical History: Heart Failure, CVA/TIA, Hyperlipidemia, Hypertension Additional Past Medical History / Comment(s): kidney stones; possible CHRIS- patient was seen by pulmonology in 03/2019 but didn't follow up with testing for CHRIS History of Any Multi-Drug Resistant Organisms: None Reported Past Surgical History: Appendectomy, Heart Catheterization Additional Past Surgical History / Comment(s): kidney stones procedure,YOVANY, aortic valve/ascending aorta replaced on 03/04/21 with On-X mechanical valve and gel weave graft, aortic valve replaced Past Anesthesia/Blood Transfusion Reactions: Postoperative Nausea & Vomiting (PONV) Past Psychological History: Depression Smoking Status: Former smoker Past Alcohol Use History: None Reported Past Drug Use History: None Reported - Past Family History Mother Family Medical History: Cancer Additional Family Medical History / Comment(s): still alive at 78 y/o Father Family Medical History: CVA/TIA Additional Family Medical History / Comment(s): at 86 y/o Medications and Allergies Home Medications Medication Instructions Recorded Confirmed Type Aspirin 81 mg PO DAILY #0 03/10/21 11/20/24 Rx Metoprolol Succinate (ER) [Toprol 25 mg PO BID 04/13/21 11/20/24 History XL] Multivitamins, Thera [Multivitamin 1 tab PO DAILY 05/13/23 11/20/24 History (formulary)] Pantoprazole [Protonix] 40 mg PO DAILY 05/13/23 11/20/24 History Rosuvastatin Calcium 5 mg PO DAILY 05/13/23 11/20/24 History [place]-3/Dha/Epa/Fish Oil [Fish Oil 1 cap PO DAILY 02/09/24 11/20/24 History 1,000 mg Softgel] Escitalopram [Lexapro] 20 mg PO DAILY 11/20/24 11/20/24 History Losartan/Hydrochlorothiazide 1 tab PO DAILY 11/20/24 11/20/24 History [Losartan-Hctz 100-25 mg Tab] Warfarin [Coumadin] 5 mg PO SUTUTHSA@209911/20/24 11/20/24 History Warfarin [Coumadin] 7.5 mg PO MOWEFR@209911/20/24 11/20/24 History Allergies Allergy/AdvReac Type Severity Reaction Status Date / Time Iodinated Contrast Media AdvReac Severe Vomiting Verified 11/20/24 09:45 Physical Exam Vitals: Vital Signs Temp Pulse Resp BP Pulse Ox 11/20/24 08:20 102 H 18 152/89 95 11/20/24 05:20 89 18 114/80 94 L 11/20/24 01:15 78 18 130/80 92 L 11/20/24 00:00 82 18 112/78 94 L 11/19/24 23:00 92 16 112/78 92 L 11/19/24 22:00 85 18 106/73 95 11/19/24 19:34 98.4 F 84 18 166/76 98 Intake and Output 11/19/24 11/20/24 11/20/24 22:59 06:59 14:59 Other: Weight 113.398 kg Results CBC & Chem 7: 11/19/24 19:53 11/19/24 19:53 Labs: Abnormal Lab Results - Last 24 Hours (Table) 11/19/24 11/19/24 11/19/24 Range/Units 19:53 19:53 19:53 PT 18.5 H (10.0-12.5) sec INR 1.8 H (<1.2) Potassium 3.0 L (3.5-5.1) mmol/L Glucose 104 H (74-99) mg/dL Plasma Lactic Acid Jhon 2.2 H* (0.7-2.0) mmol/L Ur Specific [place] (1.001-1.035) Urine Ketones (Negative) 11/19/24 11/20/24 11/20/24 Range/Units 23:45 01:35 05:27 PT (10.0-12.5) sec INR (<1.2) Potassium (3.5-5.1) mmol/L Glucose (74-99) mg/dL Plasma Lactic Acid Jhon 2.5 H* 3.4 H* (0.7-2.0) mmol/L Ur Specific [place] >1.050 H (1.001-1.035) Urine Ketones Trace H (Negative) 11/20/24 Range/Units 10:27 PT (10.0-12.5) sec INR (<1.2) Potassium (3.5-5.1) mmol/L Glucose (74-99) mg/dL Plasma Lactic Acid Jhon 2.5 H* (0.7-2.0) mmol/L Ur Specific [place] (1.001-1.035) Urine Ketones (Negative)
[2024-11-20 16:37] LABS: ALT 25 U/L (4-49); AST 27 U/L (17-59); African American GFR (CKD) >90 (>60 ml/min/1.73 sqM); Albumin 3.9 g/dL (3.5-5.0); Alkaline Phosphatase 68 U/L (38-126); Anion Gap 9 mmol/L; Blood Urea Nitrogen 17 mg/dL (9-20); Carbon Dioxide 24 mmol/L (22-30); Chloride 105 mmol/L (98-107); Glucose 157 mg/dL (74-99); Non-African American GFR(CKD) >90 (>60 ml/min/1.73 sqM); Potassium 3.7 mmol/L (3.5-5.1); Sodium 138 mmol/L (137-145); Total Bilirubin 1.2 mg/dL (0.2-1.3); Total Protein 6.4 g/dL (6.3-8.2)
[2024-11-20] MEDS: WARFARIN 10 MG TAB PO ONE (18:20)
[2024-11-20] MEDS: methylPREDNISolone SOD SUCCI 125 MG/2 ML VIAL IV ONE (20:53)
[2024-11-20] MEDS: diphenhydrAMINE 50 MG/ML 1 ML VIAL IVP ONE (20:54)
[2024-11-20] MEDS: FAMOTIDINE 20 MG/2 ML VIAL IV ONE (20:57)
--- NOTE | 2024-11-20 21:32 | CT ---
EXAMINATION TYPE: CT abdomen pelvis w con DATE OF EXAM: 11/20/2024 9:24 PM COMPARISON: CT abdomen pelvis most recent from 09/26/2024 CLINICAL INDICATION: Male, 54 years old with history of Lower abdominal pain; Lower abdominal pain. TECHNIQUE: Axial CT abdomen pelvis w con;Sagittal and coronal reformats were created on a separate w orkstation. Contrast used:100ml mL of Isovue 300 with IV Contrast, (none if empty) Oral contrast used: with Oral Contrast (none if empty) CT DLP: 2215.7 mGycm, Automated exposure control for dose reduction was used. FINDINGS: LOWER CHEST: Mitral valve annular calcifications. ABDOMEN LIVER: Diffusely hypoattenuating parenchyma. GALLBLADDER AND BILE DUCTS: Contracted gallbladder. Layering increased densities within the lumen con sistent with gallstones are present. PANCREAS: Unremarkable. SPLEEN: Unremarkable. ADRENAL GLANDS: Unremarkable. KIDNEYS AND URETERS: No evidence of hydronephrosis or renal calculus. The ureters are unremarkable. PELVIS BLADDER: No evidence for wall thickening or mass given limitations of exam. REPRODUCTIVE: Prostate is enlarged in size measuring 4.7 cm in transverse dimension. ABDOMEN & PELVIS STOMACH AND BOWEL: No evidence of bowel obstruction. Moderate amount stool in the colon. The appendix appears to be surgically absent. PERITONEUM/RETROPERITONEUM: No evidence of pneumoperitoneum or free fluid. VASCULATURE: No evidence of aortic aneurysm. MUSCULOSKELETAL: No acute osseous abnormalities. Mild disc degeneration changes are present throughou t the thoracolumbar spine. LYMPH NODES: No gross evidence for lymphadenopathy. SOFT TISSUE/ABDOMINAL WALL: Subcutaneous gas in the right lower abdomen likely secondary to medicine injection. Fatty changes to the inguinal canals bilaterally.r IMPRESSION: 1. No evidence for acute abdominal process. 2. Hepatic steatosis. 3. Cholelithiasis. 4. Large stool burden in the colon. [facility], , 11/20/2024 9:29 PM
[2024-11-21 03:47] LABS: INR 1.8 (<1.2); Prothrombin Time 18.8 sec (10.0-12.5)
[2024-11-21] MEDS: PANTOPRAZOLE 40 MG TABLET PO SCH (08:37)
[2024-11-21] MEDS: ASPIRIN 81 MG PO SCH (08:37)
[2024-11-21] MEDS: ESCITALOPRAM 20 MG TAB PO SCH (08:38)
[2024-11-21] MEDS: LACTULOSE 20 GM/30 ML CUP PO SCH (09:16)
[2024-11-21 09:18] LABS: Chol/HDL Ratio 5.14 Ratio; HDL Cholesterol 32.7 mg/dL (40.00-60.00); VLDL Calculation 126.6 mg/dL (5.00-40.00)
[2024-11-21 09:29] LABS: LDL Cholesterol,Direct Reflex 84.6 mg/dL (0.00-129.00)
[2024-11-21 14:15] LABS: T4, Free (Free Thyroxine) 0.98 ng/dL (0.78-2.19)
[2024-11-21 14:30] LABS: Influenza A Not Detected (Not Detectd); Influenza B Not Detected (Not Detectd); RSV Not Detected (Not Detectd)
--- NOTE | 2024-11-21 14:48 | P.CNNES ---
History of Present Illness Consult date: 11/20/24 Reason for Consult: Dizziness rule out stroke History of Present Illness: The patient is a 54-year-old male who was seen in neurologic consultation on November 20, 2024, in collaboration with Emilie Jhaveri, via teleneurology. History is obtained from the patient as well as review of the chart. The patient is somewhat tangential and difficult to follow at times. Patient reports he was driving his car and about 2:30 PM he became dizzy. He says that he pulled over off the road and waited for about 10 minutes. He then began to drive again. While driving he again became dizzy. He says he pulled over 1 more time and then was able to make it home. The patient reports blurred vision from his right eye and a feeling of shakiness on the right side of his body. He says that his speech is fine. He does report right-sided tinnitus. When asked if he could further describe this dizziness, the patient was unable to. He states he just felt "weird". He denies associated nausea and vomiting. The patient has a history of a left temporal lobe stroke. He states that with that stroke he had similar symptoms. He was however also unable to speak or swallow. The patient reports that "3 weeks ago, I had a second stroke". He states that his right-sided weakness has resolved and he was able to ambulate without difficulty, until this most recent episode which brought him into the hospital. The patient currently reports no difficulty with speech or swallowing. In the emergency department, CT scan of the brain was performed. There was reported evidence of the previous left temporal lobe infarct. There is also reported to be loss of cohen-white interface in the left parietal lobe, possibly consistent with an acute infarct. Laboratory evaluation reveals an elevated lactic acid of 3.4. INR is low at 1.4. The patient reportedly has a history of mechanical valve and is taking warfarin. Past Medical History Past Medical History: Heart Failure, CVA/TIA, Hyperlipidemia, Hypertension Additional Past Medical History / Comment(s): kidney stones; possible CHRIS-patient was seen by pulmonology in 03/2019 but didn't follow up with testing for CHRIS History of Any Multi-Drug Resistant Organisms: None Reported Past Surgical History: Appendectomy, Heart Catheterization Additional Past Surgical History / Comment(s): kidney stones procedure,YOVANY, aortic valve/ascending aorta replaced on 03/04/21 with On-X mechanical valve and gel weave graft, aortic valve replaced Past Anesthesia/Blood Transfusion Reactions: Postoperative Nausea & Vomiting (PONV) Past Psychological History: Depression Smoking Status: Former smoker Past Alcohol Use History: None Reported Past Drug Use History: None Reported - Past Family History Mother Family Medical History: Cancer Additional Family Medical History / Comment(s): still alive at 78 y/o Father Family Medical History: CVA/TIA Additional Family Medical History / Comment(s): at 86 y/o Medications and Allergies Home Medications Medication Instructions Recorded Confirmed Type Aspirin 81 mg PO DAILY #0 03/10/21 11/20/24 Rx Metoprolol Succinate (ER) [Toprol 25 mg PO BID 04/13/21 11/20/24 History XL] Multivitamins, Thera [Multivitamin 1 tab PO DAILY 05/13/23 11/20/24 History (formulary)] Pantoprazole [Protonix] 40 mg PO DAILY 05/13/23 11/20/24 History Rosuvastatin Calcium 5 mg PO DAILY 05/13/23 11/20/24 History [place]-3/Dha/Epa/Fish Oil [Fish Oil 1 cap PO DAILY 02/09/24 11/20/24 History 1,000 mg Softgel] Escitalopram [Lexapro] 20 mg PO DAILY 11/20/24 11/20/24 History Losartan/Hydrochlorothiazide 1 tab PO DAILY 11/20/24 11/20/24 History [Losartan-Hctz 100-25 mg Tab] Warfarin [Coumadin] 5 mg PO SUTUTHSA@209911/20/24 11/20/24 History Warfarin [Coumadin] 7.5 mg PO MOWEFR@2100 11/20/24 11/20/24 History Allergies Allergy/AdvReac Type Severity Reaction Status Date / Time Iodinated Contrast Media AdvReac Severe Vomiting Verified 11/20/24 09:45 Physical Examination - Vital Signs Vital Signs: Vital Signs Temp Pulse Resp BP Pulse Ox 11/20/24 08:20 102 H 18 152/89 95 11/20/24 05:20 89 18 114/80 94 L 11/20/24 01:15 78 18 130/80 92 L 11/20/24 00:00 82 18 112/78 94 L 11/19/24 23:00 92 16 112/78 92 L 11/19/24 22:00 85 18 106/73 95 11/19/24 19:34 98.4 F 84 18 166/76 98 Intake and Output 11/19/24 11/20/24 11/20/24 22:59 06:59 14:59 Other: Weight 113.398 kg General: The patient is reclining in the bed. Well-nourished, well-developed and in no acute distress. HEENT: Head is atraumatic, normocephalic. Fundus not visualized. There is no scleral icterus. Mucous membranes are moist. Neck: Supple without carotid bruits Heart: Regular rate and rhythm Lungs: Essentially clear to auscultation Extremities: Without edema Neurological examination Mental status: Patient is awake, alert and oriented x 3. His speech is clear. There is no dysarthria or aphasia. There is no a anomia. Cranial nerves: Pupils are equal at 2 mm and reactive to light. Visual gupta are full to confrontation. Extraocular movements are intact. There is no nystagmus. Ocular dysmetria is present. Facial sensation is intact. There is no facial asymmetry. Hearing is grossly intact. Uvula and palate are midline. Shoulder shrug is diminished on the right. Tongue protrudes midline. Motor: Strength is 5/5 in the left upper and lower extremities. Right polymer chemist, biceps and triceps strength 4/5. Right hip flexors 2-3/5. Right plantar flexor 5/5. Right ankle dorsiflexor 4/5.. Sensation: Intact to light touch throughout. There is no extinction with double simultaneous stimulation. Coordination: Erswje-sf-ghfy and rapid alternating movements are intact. There is no pronator drift. Deep tendon reflexes: 2+/4+ in the bilateral biceps, brachioradialis and right patellar reflexes left patellar reflex 3+/4+. Plantar responses are flexor bilaterally. Gait: Not assessed Results CT brain images have been personally viewed. I agree with the radiology report. - Laboratory Findings CBC and BMP: 11/19/24 19:53 11/20/24 16:02 Abnormal Lab Findings: Abnormal Labs 11/19/24 11/19/24 11/19/24 19:53 19:53 19:53 PT 18.5 H INR 1.8 H Potassium 3.0 L Glucose 104 H Plasma Lactic Acid Jhon 2.2 H* Ur Specific [place] Urine Ketones 11/19/24 11/20/24 11/20/24 23:45 01:35 05:27 PT INR Potassium Glucose Plasma Lactic Acid Jhon 2.5 H* 3.4 H* Ur Specific [place] >1.050 H Urine Ketones Trace H Assessment and Plan Assessment: 1. The patient is a 54-year-old male with a history of previous stroke involving the left temporal region. He presents to the emergency department with dizziness, blurred vision and right-sided weakness. CT scan of the brain reveals signs of possible left parietal acute ischemia. The patient's neurological examination is consistent with this. 2. Subtherapeutic INR 3. History of mechanical valve replacement 4. History of hypertension 5. History of hyperlipidemia Plan: 1. MRI of the brain has been ordered to further evaluate for cerebral ischemia 2. Stroke order set including, lipid panel, TSH, hemoglobin A1c, physical, occupational and speech therapies 3. 2D echocardiogram 4. Maintain therapeutic INR Time with Patient: Greater than 30 (65 minutes were spent caring for this patient today including obtaining history, examining the patient, reviewing imaging, chart documentation, labs, placing orders and creating this note)
--- NOTE | 2024-11-21 15:55 | P.PN ---
Subjective Progress Note Date: 11/21/24 Patient initially seen by Dr. Gardner. Please refer to her note for details. Patient is a 54-year-old male with history of left temporal infarct, comes with "dizziness". He had first episodes of dizziness while he was driving, has to cloth covered helmet puller. It lasted for about 10 minutes. He came back home. And had another episode that lasted for 5 minutes, but then noticed that his right side was we nadiya. Patient has new worsening of his pre-existing right-sided weakness. CT scan suspicious for new left parietal infarct. I reviewed CT head, and do not appear to have any new ischemia. MRI was ordered. Patient and his are present. Patient states he had a stroke on 11/15/2021, which affected his speech and swallow. About 3 weeks later, he had a second stroke, which affected his right side of the body. He required 6 months of therapy. He has some residual weakness of the right arm and right leg. 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 He was placed on IV antibiotics for 6 weeks. Patient states that his right side has got weaker since this current event. He believes that he cannot walk, requires a cane. He is also noticing tremulousness and shakiness of the right arm and hand. Vital signs on arrival blood pressure 166/76, pulse of 84 temperature 98.4. Blood test shows normal CBC, INR 1.8, PTT normal, basic metabolic panel normal. Hepatic panel normal, troponin negative. UA negative. Lactate 2.5. Hemoglobin A1c 5.6. EKG showed sinus rhythm with first-degree AV block. CT head revealed area of cohen-white matter loss of differentiation in the left parietal lobe, concerning for acute CVA. Remote injury to the left temporal lobe with encephalomalacia. I personally reviewed CT head, does not appear anything acute clearly. Agree with area of encephalomalacia. CT of abdomen pelvis showed no evidence for acute abdominal process. Hepatic steatosis. Cholelithiasis, large stool burden in the colon. Home medications include warfarin, aspirin 81 mg, losartan/HCTZ, Lexapro 20 mg, fish oil, Protonix 40 mg, Crestor 5 mg, multivitamin, and metoprolol. Patient's INR is 2.4. CRP less than 0.5. Free T4 normal. TSH is slightly low 0.296. Patient denies any tobacco use, no alcohol. Objective - Vital Signs Vital signs: Vital Signs Temp 98.0 F 11/21/24 04:00 Pulse 68 11/21/24 13:48 Resp 18 11/21/24 13:48 BP 133/79 11/21/24 13:48 Pulse Ox 98 11/21/24 13:48 FiO2 Intake & Output 11/20/24 11/21/24 11/21/24 18:59 06:59 18:59 Other: # Voids 1 - Exam On examination patient's mental status, cranial nerves are normal. Visual gupta are full. Face appears grossly symmetric, although may have mild right flattening of the nasolabial fold. On muscle strength testing, patient has right pronator drift about 30 degree. The strength is normal in the left arm and left leg. On the right side, deltoid 5-with giveaway weakness, normal biceps and triceps, try on baster is 4+. Ankle dorsiflexion 4+. Sensory to touch is equal. He is noticing some tremulousness of the right hand, stiffness. - Labs CBC & Chem 7: 11/19/24 19:53 11/20/24 16:02 Labs: Abnormal Lab Results - Last 24 Hours (Table) 11/20/24 11/20/24 11/20/24 Range/Units 16:02 16:02 16:02 PT (10.0-12.5) sec INR (<1.2) Glucose 157 H (74-99) mg/dL Plasma Lactic Acid Jhon 2.2 H* (0.7-2.0) mmol/L Triglycerides 633.00 H (0.00-149.00) mg/dL VLDL Cholesterol, Calc 126.60 H (5.00-40.00) mg/dL HDL Cholesterol 32.70 L (40.00-60.00) mg/dL TSH 0.296 L (0.465-4.680) mIU/L 11/20/24 11/21/24 11/21/24 Range/Units 20:22 00:02 03:01 PT 18.8 H (10.0-12.5) sec INR 1.8 H (<1.2) Glucose (74-99) mg/dL Plasma Lactic Acid Jhon 2.8 H* 2.1 H* (0.7-2.0) mmol/L Triglycerides (0.00-149.00) mg/dL VLDL Cholesterol, Calc (5.00-40.00) mg/dL HDL Cholesterol (40.00-60.00) mg/dL TSH (0.465-4.680) mIU/L 11/21/24 11/21/24 11/21/24 Range/Units 03:01 07:53 11:26 PT (10.0-12.5) sec INR (<1.2) Glucose (74-99) mg/dL Plasma Lactic Acid Jhon 3.1 H* 2.5 H* 2.4 H* (0.7-2.0) mmol/L Triglycerides (0.00-149.00) mg/dL VLDL Cholesterol, Calc (5.00-40.00) mg/dL HDL Cholesterol (40.00-60.00) mg/dL TSH (0.465-4.680) mIU/L Assessment and Plan Assessment: 1. The patient is a 54-year-old male with a history of previous stroke involving the left temporal region. He presents to the emergency department with dizziness, blurred vision and right-sided weakness. CT scan of the brain reported signs of possible left parietal acute ischemia. The patient's abraham rological examination is consistent with this. However MRI of the brain revealed no evidence of acute stroke. 2. Subtherapeutic INR 3. History of mechanical aortic valve replacement, due to bacterial endocarditis. 4. History of hypertension 5. History of hyperlipidemia 6. History of CVA 11/15/2021, with residual right-sided weakness. Plan: MRI of the brain without contrast just completed. On my review revealed no evidence of acute ischemic stroke. Reveals evidence of old left temporal/insular encephalomalacia. Also revealed evidence of some small vessel disease. Official radiology report pending. Await 2-D echo with bubble study to rule out PFO, rule out vegetation. Patient may need YOVANY. Cardiology consulted. CTA head and neck showed: No evidence of dissection of the cervical internal carotid arteries or vertebral arteries. No evidence of significant stenosis at the carotid bifurcation. No evidence of intracranial high-grade stenosis or intracranial aneurysm. Fasting a.m. lipid panel cholesterol 168, LDL 84, HDL 32 and triglycerides 633. Patient on Crestor 5 mg at home. Would recommend increasing to at least 10 mg. Target LDL <70. Recommend medical treatment for hypertriglyceridemia. Hemoglobin A1c 5.6 Optimize control of blood pressure. Continue warfarin. Keep INR at therapeutic range, as recommended by the cardiology. Patient also on aspirin 81 mg, which will be continued. Patient currently on full anticoagulant dose Lovenox. Neuro checks every 4 hours B12, folate. Check EEG. Telemetry monitoring rule out any arrhythmia PT, OT, speech therapy DVT prophylaxis: Patient currently on full dose Lovenox.
--- NOTE | 2024-11-21 16:34 | MR ---
EXAMINATION TYPE: MR brain wo con DATE OF EXAM: 11/21/2024 3:10 PM COMPARISON: CT head. CLINICAL INDICATION: Male, 54 years old with history of CVA; PHH, CVA, TECHNIQUE: Multi planar, multi sequence imaging was performed through the brain including: T1, T2, In version recovery, Diffusion weighted imaging, and gradient echo imaging. No gadolinium was given. FINDINGS: No restriction diffusion area of concern on prior CT. Remote injury in the left temporal, p arietal region including there is concern. Additional remote left basal ganglia injury. The coehn-white junctions, ventricular system, basal cisterns appear unremarkable. Scattered foci of high T2 signal intensity are seen within the periventricular white matter. Midline structures show n o abnormality. Diffusion-weighted imaging shows no evidence of restricted diffusion. The susceptibili ty weighted images do not reveal any evidence for micro-hemorrhage. The bone marrow signal is within normal limits. Paranasal sinuses and mastoid air cells: No significant paranasal sinus disease. Visualized orbits: Orbital contents are intact. IMPRESSION: 1. Area on CT has no evidence of acute CVA, correlate. Most compatible remote injury. Subtle malacia left frontal lobe also present. No evidence of intracranial mass or acute/subacute infarct. 2. Nonspecific white matter changes, likely secondary to small vessel ischemic disease. [facility], , 11/21/2024 4:32 PM
[2024-11-21] MEDS: WARFARIN 7.5 MG TAB PO ONE (19:15)
--- NOTE | 2024-11-21 22:11 | HP ---
HISTORY AND PHYSICAL CHIEF COMPLAINT: Dizziness and as well as off-balance and right leg weakness. HISTORY OF PRESENT ILLNESS: This is a 54-year-old gentleman with a past medical history of CVA, TIA, hypertension, hyperlipidemia, was complaining of dizziness and as well as off-balance and weakness of the right side. The patient is being evaluated for a stroke. No chest pain. No palpitations. No fever. Triglycerides are elevated. Lactic acid also elevated. PAST MEDICAL HISTORY: Reviewed include CVA, TIA. Rest of the history and rest of the chart are also reviewed. HOME MEDICATIONS: Reviewed include Coumadin, dose and rest of medications reviewed. ALLERGIES: Iodinated contrast dyes. FAMILY HISTORY: History of cancer in the family. SOCIAL HISTORY: Remote history of smoking. REVIEW OF SYSTEMS: A 14-point review of systems is negative except as mentioned earlier. PHYSICAL EXAMINATION: VITAL SIGNS: Pulse 69, blood pressure 130/80, respirations 18. CHEST: Clear to auscultation. CARDIOVASCULAR: S1, S2. ABDOMEN: Soft. NERVOUS SYSTEM: Nonfocal. LABORATORY DATA: INR 1.8. Rest of the labs are noted. UA unremarkable. ASSESSMENT: 1. Dizziness and right-sided weakness, rule out acute stroke. 2. Elevated lactic acid, rule out sepsis. 3. Elevated triglycerides, hypertriglyceridemia. 4. Rule out thyrotoxicosis. 5. Hypertension. 6. Hyperlipidemia. 7. History of obstructive sleep apnea. 8. History of ascending aorta replacement. RECOMMENDATIONS: Recommend to continue current management and continue symptomatic treatment. Also obtain Neurology consultation. Cardiology consultation. Full neurovascular workup. Prognosis guarded because of multiple complex medical issues. Further recommendations to follow. See orders for further details. MMODL / IJN: [id number] /
--- NOTE | 2024-11-21 23:09 | P.CONS ---
History of Present Illness - Reason for Consult Consult date: 11/21/24 Sepsis Requesting physician: Melvina Miller - Chief Complaint Dizziness and weakness x 1 day - History of Present Illness Patient is a 54-year-old male with a past medical history negative for heart failure with CVA TIA hypertension hyperlipidemia presenting to the hospital for evaluation of dizziness room spinning unable to drive event occurred the day of presentation to the hospital patient did have previous history of CVA and was concern for possible stroke for the patient presented to hospital patient on arrival to the ER was afebrile and no fever have been recorded subsequently patient was not tachycardic hypotensive or hypoxic no need for supplemental oxygen did have a white count of 9.4 creatinine 0.87 electrolytes has been normal did have elevated lactic acid subsequent normalized liver enzymes are normal CRP is less than 0.5 urine has been negative influenza RSV COVID testing was negative patient did have a CT of the brain that was negative for any bleed did have a abdominal pelvis CT no evidence of acute abdominal process hepatic steatosis cholelithiasis large stool burden in the colon infectious he was consulted today for possible sepsis because of his elevated lactic acid patient has been complaining of some abdominal pain mostly dull aching mild to moderate intensity anterior a bowel movement no nausea vomiting Review of Systems Positive point and negatives has been mentioned in the HPI, complete review of systems was performed and all other systems are negative Past Medical History Past Medical History: Heart Failure, CVA/TIA, Hyperlipidemia, Hypertension Additional Past Medical History / Comment(s): kidney stones; possible CHRIS-p atient was seen by pulmonology in 03/2019 but didn't follow up with testing for CHRIS History of Any Multi-Drug Resistant Organisms: None Reported Past Surgical History: Appendectomy, Heart Catheterization Additional Past Surgical History / Comment(s): kidney stones procedure,YOVANY, aortic valve/ascending aorta replaced on 03/04/21 with On-X mechanical valve and gel weave graft, aortic valve replaced Past Anesthesia/Blood Transfusion Reactions: Postoperative Nausea & Vomiting (PONV) Past Psychological History: Depression Smoking Status: Former smoker Past Alcohol Use History: None Reported Past Drug Use History: None Reported - Past Family History Mother Family Medical History: Cancer Additional Family Medical History / Comment(s): still alive at 78 y/o Father Family Medical History: CVA/TIA Additional Family Medical History / Comment(s): at 86 y/o Medications and Allergies Home Medications Medication Instructions Recorded Confirmed Type Aspirin 81 mg PO DAILY #0 03/10/21 11/20/24 Rx Metoprolol Succinate (ER) [Toprol 25 mg PO BID 04/13/21 11/20/24 History XL] Multivitamins, Thera [Multivitamin 1 tab PO DAILY 05/13/23 11/20/24 History (formulary)] Pantoprazole [Protonix] 40 mg PO DAILY 05/13/23 11/20/24 History Rosuvastatin Calcium 5 mg PO DAILY 05/13/23 11/20/24 History [place]-3/Dha/Epa/Fish Oil [Fish Oil 1 cap PO DAILY 02/09/24 11/20/24 History 1,000 mg Softgel] Escitalopram [Lexapro] 20 mg PO DAILY 11/20/24 11/20/24 History Losartan/Hydrochlorothiazide 1 tab PO DAILY 11/20/24 11/20/24 History [Losartan-Hctz 100-25 mg Tab] Warfarin [Coumadin] 5 mg PO SUTUTHSA@2100 11/20/24 11/20/24 History Warfarin [Coumadin] 7.5 mg PO MOWEFR@2100 11/20/24 11/20/24 History Allergies Allergy/AdvReac Type Severity Reaction Status Date / Time Iodinated Contrast Media AdvReac Severe Vomiting Verified 11/20/24 09:45 Physical Exam Vitals: Vital Signs Temp Pulse Pulse Resp BP BP Pulse Ox 11/21/24 13:48 68 18 133/79 98 11/21/24 09:17 69 18 133/83 98 11/21/24 04:00 98.0 F 75 16 142/80 97 11/20/24 22:36 97.7 F 18 133/75 97 11/20/24 20:51 97.7 F 86 18 148/84 98 11/20/24 16:53 98 20 139/80 97 Intake and Output 11/20/24 11/21/24 11/21/24 22:59 06:59 14:59 Other: # Voids 1 GENERAL DESCRIPTION: Middle-age male lying in bed, no distress. No tachypnea or accessory muscle of respiration use. HEENT: Shows Pallor , no scleral icterus. Oral mucous membrane is dry. No pharyngeal erythema or thrush NECK: Trachea central, no thyromegaly. LUNGS: Unlabored breathing. Clear to auscultation anteriorly. No wheeze or crackle. HEART: S1, S2, regular rate and rhythm. No loud murmur ABDOMEN: Soft, mild lower abdominal tenderness EXTREMITIES: No edema of feet. SKIN: No rash, no masses palpable. NEUROLOGICAL: The patient is awake, alert, oriented x3, mood and affect normal. Results CBC & Chem 7: 11/19/24 19:53 11/20/24 16:02 Labs: Abnormal Lab Results - Last 24 Hours (Table) 11/20/24 11/20/24 11/20/24 Range/Units 16:02 16:02 16:02 PT (10.0-12.5) sec INR (<1.2) Glucose 157 H (74-99) mg/dL Plasma Lactic Acid Jhon 2.2 H* (0.7-2.0) mmol/L Triglycerides 633.00 H (0.00-149.00) mg/dL VLDL Cholesterol, Calc 126.60 H (5.00-40.00) mg/dL HDL Cholesterol 32.70 L (40.00-60.00) mg/dL TSH 0.296 L (0.465-4.680) mIU/L 11/20/24 11/21/24 11/21/24 Range/Units 20:22 00:02 03:01 PT 18.8 H (10.0-12.5) sec INR 1.8 H (<1.2) Glucose (74-99) mg/dL Plasma Lactic Acid Jhon 2.8 H* 2.1 H* (0.7-2.0) mmol/L Triglycerides (0.00-149.00) mg/dL VLDL Cholesterol, Calc (5.00-40.00) mg/dL HDL Cholesterol (40.00-60.00) mg/dL TSH (0.465-4.680) mIU/L 11/21/24 11/21/24 11/21/24 Range/Units 03:01 07:53 11:26 PT (10.0-12.5) sec INR (<1.2) Glucose (74-99) mg/dL Plasma Lactic Acid Jhon 3.1 H* 2.5 H* 2.4 H* (0.7-2.0) mmol/L Triglycerides (0.00-149.00) mg/dL VLDL Cholesterol, Calc (5.00-40.00) mg/dL HDL Cholesterol (40.00-60.00) mg/dL TSH (0.465-4.680) mIU/L Assessment and Plan (1) Lactic acidosis Current Visit: Yes Status: Acute Code(s): E87.20 - ACIDOSIS, UNSPECIFIED SNOMED Code(s): 30107670 Plan: 1patient presented to hospital mostly with dizziness and weakness questionable prereanl and the patient also have elevated lactic acid but no other features supporting diagnosis of sepsis especially with normal CRP 2-patient also complaining of some abdominal discomfort coupled with elevated lactic acid may benefit from repeat CT with oral contrast as initial CT was done without any contrast which will be ordered for tomorrow after hydrating the patient 3-blood culture has been obtained results will be followed We will follow on clinical condition and cultures to further adjust medication if needed Thank you for this consultation we will follow the patient along with you Dictation was produced using [employer] dictation software. please excuse any grammatical, word or spelling errors. Time with Patient: Greater than 30
--- NOTE | 2024-11-22 07:46 | CA ---
Transthoracic Echo Report Name: Bogdan Aguirre Age: 54 Gender: M : 1970 Exam Date: 11/21/2024 14:08 Exam Location: [facility] Ht (in): 75 Wt (lb): 250 Ordering Physician: Kourtney Gardner DO Attending/Referring Phys: Packing Machine Tender Cecilia Nj RDCS Procedure CPT: Indications: mechanical valve, CVA Cardiac Hx: AV Replacement Technical Quality: Fair Contrast 1: Definity Total Dose (mL): 2 Contrast 2: Agitated Saline Total Dose (mL): 10 MEASUREMENTS (Male / Female) Normal Values 2D ECHO LV Diastolic Diameter PLAX 4.1 cm 4.2 - 5.9 / 3.9 - 5.3 cm LV Systolic Diameter PLAX 2.7 cm IVS Diastolic Thickness 1.5 cm 0.6 - 1.0 / 0.6 - 0.9 cm LVPW Diastolic Thickness 1.4 cm 0.6 - 1.0 / 0.6 - 0.9 cm LV Relative Wall Thickness 0.7 RV Internal Dim ED PLAX 2.6 cm LVOT Diameter 2.3 cm LA Systolic Diameter LX 3.8 cm 3.0 - 4.0 / 2.7 - 3.8 cm LA Volume 101.4 cm??? 18 - 58 / 22 - 52 cm??? LA Volume Index 40.9 cm???/m??? 16 - 28 cm???/m??? M-MODE Aortic Root Diameter MM 3.5 cm LA Systolic Diameter MM 3.9 cm LA Ao Ratio MM 1.1 DOPPLER AV Peak Velocity 223.6 cm/s AV Peak Gradient 20.0 mmHg AV Mean Velocity 164.7 cm/s AV Mean Gradient 12.1 mmHg AV Velocity Time Integral 50.1 cm LVOT Peak Velocity 171.6 cm/s LVOT Peak Gradient 11.8 mmHg LVOT Velocity Time Integral 36.5 cm LVOT Stroke Volume 157.1 cm??? LVOT Stroke Volume Index 65.1 ml/m??? LVOT Cardiac Index 4316.1 cm???/min???m??? AV Area Cont Eq vti 3.1 cm??? AV Area Cont Eq pk 3.3 cm??? MV Area PHT 2.5 cm??? Mitral E Point Velocity 114.3 cm/s Mitral A Point Velocity 74.6 cm/s Mitral E to A Ratio 1.5 MV Deceleration Time 299.0 ms TR Peak Velocity 204.3 cm/s TR Peak Gradient 16.7 mmHg FINDINGS Left Ventricle Left ventricular ejection fraction is estimated at 55-60 %. Moderately increased septal wall thickness. Normal left ventricular systolic function with no obvious regional wall motion abnormalities. Left ventricular cavity size normal. Right Ventricle Normal right ventricular size. Right ventricular systolic pressure within normal limits. Right Atrium Mild right atrial dilatation. Negative agitated saline bubble study for right to left shunt. Left Atrium Mildly increased left atrial area. Mitral Valve Structurally normal mitral valve. Mild mitral regurgitation. Aortic Valve Aortic valve not well visualized. Mechanical aortic valve. Otherwise prosthetic aortic valve appears to be functioning normally, with a peak gradient of 20 mmHg and a mean gradient of 12 mmHg. No paravalvular aortic regurgitation. No central aortic regurgitation. Tricuspid Valve Structurally normal tricuspid valve. Mild tricuspid regurgitation. No tricuspid stenosis. Pulmonic Valve Structurally normal pulmonic valve. Trace pulmonic regurgitation. No pulmonic stenosis. Pericardium No pericardial or pleural effusion. Aorta Aorta at upper limits of normal. CONCLUSIONS Normal LV size and systolic function. There is mild mitral annular calcification. There is mild mitral and tricuspid regurgitation noted. Mechanical aortic valve prosthesis noted stable no significant regurgitation. No pericardial effusion Previewed by: Dr. Kelby Elliott MD (Electronically Signed) Final Date: 22 November 2024 07:45
[2024-11-22] MEDS: BARIUM SULFATE 2% - 450 ML ORAL.SUSP BOTTLE PO PRN (08:00)
[2024-11-22 08:15] LABS: INR 2.4 (<1.2); Prothrombin Time 23.9 sec (10.0-12.5)
[2024-11-22 08:34] LABS: ALT 26 U/L (4-49); AST 27 U/L (17-59); African American GFR (CKD) >90 (>60 ml/min/1.73 sqM); Albumin 3.7 g/dL (3.5-5.0); Alkaline Phosphatase 51 U/L (38-126); Anion Gap 10 mmol/L; Blood Urea Nitrogen 16 mg/dL (9-20); Calcium 8.3 mg/dL (8.4-10.2); Carbon Dioxide 25 mmol/L (22-30); Chloride 103 mmol/L (98-107); Glucose 105 mg/dL (74-99); Non-African American GFR(CKD) >90 (>60 ml/min/1.73 sqM); Potassium 3.3 mmol/L (3.5-5.1); Sodium 138 mmol/L (137-145); Total Bilirubin 0.8 mg/dL (0.2-1.3)
[2024-11-22 09:02] LABS: Basophils # (A) 0.1 k/uL (0-0.2); Basophils % (A) 1 %; Eosinophils # (A) 0.1 k/uL (0-0.7); Eosinophils % (A) 1 %; HCT 39.7 % (39.0-53.0); HGB 13.1 gm/dL (13.0-17.5); Lymphocytes # (A) 2.5 k/uL (1.0-4.8); Lymphocytes % (A) 25 %; MCH 28.8 pg (25.0-35.0); MCHC 33.1 g/dL (31.0-37.0); MCV 86.9 fL (80.0-100.0); Mean Platelet Volume 8.1; Monocytes # (A) 0.6 k/uL (0-1.0); Monocytes % (A) 6 %; Neutrophils # (A) 6.9 k/uL (1.3-7.7); Neutrophils % (A) 68 %; Platelet Count 228 k/uL (150-450); RBC 4.56 m/uL (4.30-5.90); RDW 14.3 % (11.5-15.5); WBC 10.2 k/uL (3.8-10.6)
[2024-11-22 10:37] LABS: Glucose,Whole Blood 94 mg/dL (70-110)
[2024-11-22] MEDS ORDERED: MIDAZOLAM 2 MG/2 ML VIAL IV PRN (11:12)
[2024-11-22] MEDS ORDERED: fentaNYL (PF) 50 MCG/ML 5 ML AMP IVP PRN (11:12)
--- NOTE | 2024-11-22 11:30 | P.CRDCN ---
History of Present Illness History of present illness: HISTORY OF PRESENT ILLNESS: This is a 54-year-old male with a past medical history significant for unicuspid aortic valve status post mechanical aortic valve replacement and aortic root r eplacement, hypertension, hyperlipidemia, CVA, and cardiomyopathy. Patient used to follow in the office with Dr. Eastman 2021 but now follows with Dr. Moran out of [place]. We have been asked to see the patient in consultation for history of aortic valve replacement. Patient examined at the bedside. Patient presented to the hospital with a chief complaint of headache and a stiff neck. The patient does have a history of right sided weakness from a previous CVA in 2021. However, he also reports worsening right sided weakness and is now requiring a cane for ambulation. Patient states that he gets his INR checked every 2 weeks on an outpatient basis. He states his last INR was noted to be 2.2. Patient states he has been compliant with his Coumadin. INR on admission was noted to be 1.8. Patient was started on Lovenox and continued on Coumadin. Repeat INR today is 2.4. DIAGNOSTICS: - EKG reveals sinus mechanism with no signs of acute ischemia. - Laboratory data: WBC 10.2. Hemoglobin 13.1. Platelet count 228. INR 2.4. Sodium 138. Potassium 3.3. BUN 16. Creatinine 0.78. - Current home cardiac medications include warfarin 5 mg Thursday and Thursday and 7.5 mg Thursday, rosuvastatin 5 mg daily, metoprolol succinate 25 mg twice a day, aspirin 81 mg daily. -YOVANY performed in May 2023 revealed mechanical aortic valve with normal function. There is 1.9 x 0.8 mm echodensity on the aortic side of the aortic valve consistent with possible vegetation versus artifact. Lumason was used which appeared to move through echodensity more consistent with artifact. Mitral valve appears to be normal with mild MR, tricuspid valve normal with trace TR, intra-atrial septum is intact. No evidence of PFO. Left atrial appendage has been ligated and is free of clot. EF 55%. Ascending aortic root graft appears patent without vegetation or echodensity. -Echocardiogram obtained this admission reveals ejection fraction 55 to 60%, negative bubble study, normally functioning mechanical aortic valve with peak gradient 20 mmHg mean gradient 12 mmHg, no perivalvular aortic regurgitation. - Cardiac catheterization history: December 2020 revealing normal coronary arteries REVIEW OF SYSTEMS: At the time of my exam: CONSTITUTIONAL: Denies fever or chills. HEENT: Denies blurred vision, vision changes, or eye pain. Denies hemoptysis CARDIOVASCULAR: Denies chest pain. Denies orthopnea. Denies PND. Denies palpitations RESPIRATORY: Denies shortness of breath. GASTROINTESTINAL: Denies abdominal pain. Denies nausea or vomiting. HEMATOLOGIC: Denies bleeding disorders. GENITOURINARY: Denies any blood in urine. SKIN: Denies pruitis. Denies rash. PHYSICAL EXAM: VITAL SIGNS: Reviewed. GENERAL: Well-developed in no acute distress. HEENT: Head is normocephalic. Pupils are equal, round. Sclerae anicteric. Mucous membranes of the mouth are moist. Neck supple. No JVD or thyromegaly LUNGS: Respirations even and unlabored. Lungs essentially clear to auscultation bilaterally. HEART: Regular rate and rhythm. S1 and S2 heard. Mechanical click noted. ABDOMEN: Soft. Nondistended. Nontender. EXTREMITIES: Normal range of motion. No clubbing or cyanosis. Peripheral pulses intact. No lower extremity edema NEUROLOGIC: Awake and alert. Oriented x 3. ASSESSMENT: Headache, neck pain, and worsening right sided weakness, CT with possible signs of left parietal acute ischemia., MRI of the brain negative for CVA Subtherapeutic INR History of unicuspid aortic valve with severe aortic valve regurgitation, status post On-X mechanical aortic valve replacement, 2020 Moderate aortic root and ascending dilation, status post ascending aortic r eplacement with 32 mm Gelweave straight graft, 2020 Normal coronary arteries, per cath in 2020 Hypertension Hyperlipidemia History of CVA with residual right-sided weakness, 2021 History of nonischemic cardiomyopathy, EF 40%, with recovered EF now 55 to 60% PLAN: Continue current cardiac medications Discontinue Lovenox Continue Coumadin. Recommend patient keep his INR between 2.53. N.p.o. at midnight Patient to undergo YOVANY tomorrow with Dr. Melvin Further recommendations pending patient course Nurse practitioner note has been reviewed by physician. Signing provider agrees with the documented findings, assessment, and plan of care documented by [employer] as a scribe. Past Medical History Past Medical History: Heart Failure, CVA/TIA, Hyperlipidemia, Hypertension Additional Past Medical History / Comment(s): kidney stones; possible CHRIS- patient was seen by pulmonology in 03/2019 but didn't follow up with testing for CHRIS History of Any Multi-Drug Resistant Organisms: None Reported Past Surgical History: Appendectomy, Heart Catheterization Additional Past Surgical History / Comment(s): kidney stones procedure,YOVANY, aortic valve/ascending aorta replaced on 03/04/21 with On-X mechanical valve and gel weave graft, aortic valve replaced Past Anesthesia/Blood Transfusion Reactions: Postoperative Nausea & Vomiting (PONV) Past Psychological History: Depression Smoking Status: Former smoker Past Alcohol Use History: None Reported Past Drug Use History: None Reported - Past Family History Mother Family Medical History: Cancer Additional Family Medical History / Comment(s): still alive at 78 y/o Father Family Medical History: CVA/TIA Additional Family Medical History / Comment(s): at 86 y/o Medications and Allergies Home Medications Medication Instructions Recorded Confirmed Type Aspirin 81 mg PO DAILY #0 03/10/21 11/20/24 Rx Metoprolol Succinate (ER) [Toprol 25 mg PO BID 04/13/21 11/20/24 History XL] Multivitamins, Thera [Multivitamin 1 tab PO DAILY 05/13/23 11/20/24 History (formulary)] Pantoprazole [Protonix] 40 mg PO DAILY 05/13/23 11/20/24 History Rosuvastatin Calcium 5 mg PO DAILY 05/13/23 11/20/24 History [place]-3/Dha/Epa/Fish Oil [Fish Oil 1 cap PO DAILY 02/09/24 11/20/24 History 1,000 mg Softgel] Escitalopram [Lexapro] 20 mg PO DAILY 11/20/24 11/20/24 History Losartan/Hydrochlorothiazide 1 tab PO DAILY 11/20/24 11/20/24 History [Losartan-Hctz 100-25 mg Tab] Warfarin [Coumadin] 5 mg PO SUTUTHSA@209911/20/24 11/20/24 History Warfarin [Coumadin] 7.5 mg PO MOWEFR@2100 11/20/24 11/20/24 History Allergies Allergy/AdvReac Type Severity Reaction Status Date / Time Iodinated Contrast Media AdvReac Severe Vomiting Verified 11/20/24 09:45 Physical Exam Vitals: Vital Signs Temp Pulse Pulse Resp BP BP Pulse Ox 11/22/24 10:35 66 146/81 11/22/24 08:00 98.0 F 67 16 147/81 95 11/22/24 04:30 85 17 158/82 96 11/21/24 23:00 70 18 168/87 93 L 11/21/24 22:04 98.1 F 72 16 177/90 95 11/21/24 21:22 80 18 154/90 94 L 11/21/24 20:14 74 18 160/92 97 11/21/24 19:00 75 18 150/85 11/21/24 18:00 76 18 144/90 11/21/24 17:00 78 18 128/85 11/21/24 16:02 84 18 160/90 98 11/21/24 13:48 68 18 133/79 98 Intake and Output 11/21/24 11/22/24 11/22/24 22:59 06:59 14:59 Intake Total 10 Balance 10 Intake: IV 10 Invasive Line 2 10 Other: Voiding Method Toilet Toilet # Voids 1 1 # Bowel Movements 1 Weight 113.398 kg 120.7 kg Results 11/22/24 06:37 11/22/24 06:37 Cardiac Enzymes 11/22/24 Range/Units 06:37 AST 27 (17-59) U/L Coagulation 11/22/24 Range/Units 06:37 PT 23.9 H (10.0-12.5) sec CBC 11/22/24 Range/Units 06:37 WBC 10.2 (3.8-10.6) k/uL RBC 4.56 (4.30-5.90) m/uL Hgb 13.1 (13.0-17.5) gm/dL Hct 39.7 (39.0-53.0) % Plt Count 228 (150-450) k/uL Comprehensive Metabolic Panel 11/22/24 Range/Units 06:37 Sodium 138 (137-145) mmol/L Potassium 3.3 L (3.5-5.1) mmol/L Chloride 103 (98-107) mmol/L Carbon Dioxide 25 (22-30) mmol/L BUN 16 (9-20) mg/dL Creatinine 0.78 (0.66-1.25) mg/dL Glucose 105 H (74-99) mg/dL Calcium 8.3 L (8.4-10.2) mg/dL AST 27 (17-59) U/L ALT 26 (4-49) U/L Alkaline Phosphatase 51 (38-126) U/L Total Protein 6.0 L (6.3-8.2) g/dL Albumin 3.7 (3.5-5.0) g/dL Current Medications Generic Name Dose Route Start Last Admin Trade Name Freq PRN Reason Stop Dose Admin Aspirin 81 mg 11/21/24 09:00 11/22/24 08:56 Aspirin 81 Mg PO 81 mg DAILY SWATI Administration Atorvastatin Calcium 20 mg 11/20/24 11:30 11/22/24 08:56 Atorvastatin 20 Mg Tab PO 20 mg DAILY SWATI Administration Barium Sulfate 450 ml 11/21/24 23:09 11/22/24 08:00 Barium Sulfate 2% - 450 Ml Oral.Susp Bottle PO 11/22/24 23:10 450 ml Q3HR PRN Administration CT Scan Escitalopram Oxalate 20 mg 11/21/24 09:00 11/22/24 08:56 Escitalopram 20 Mg Tab PO 20 mg DAILY SWATI Administration Sodium Chloride 1,000 mls @ 100 mls/hr 11/19/24 19:45 11/22/24 10:51 Saline 0.9% IV Not Given .Q10H SWATI Lactulose 20 gm 11/21/24 09:15 11/22/24 08:57 Lactulose 20 Gm/30 Ml Cup PO Not Given BID SWATI Metoprolol Succinate 25 mg 11/20/24 10:45 11/22/24 08:57 Metoprolol Succinate (Er) 25 Mg Tab.Er.24h PO 25 mg BID SWATI Administration Miscellaneous Information 1 each 11/20/24 12:35 Warfarin Per Pharmacy MISCELLANE DIRECTED PRN Per Protocol Naloxone HCl 0.2 mg 11/19/24 22:49 Naloxone 0.4 Mg/Ml 1 Ml Vial IV Q2M PRN Opioid Reversal Pantoprazole Sodium 40 mg 11/21/24 09:00 11/22/24 08:56 Pantoprazole 40 Mg Tablet PO 40 mg DAILY SWATI Administration Tramadol HCl 50 mg 11/20/24 10:32 11/22/24 09:39 Tramadol 50 Mg Tab PO 50 mg QID PRN Administration Analgesia Warfarin Sodium 5 mg 11/22/24 18:00 Warfarin 5 Mg Tab PO 11/22/24 18:01 ONCE@1800 ONE Intake and Output 11/21/24 11/22/24 11/22/24 22:59 06:59 14:59 Intake Total 10 Balance 10 Intake: IV 10 Invasive Line 2 10 Other: Voiding Method Toilet Toilet # Voids 1 1 # Bowel Movements 1 Weight 113.398 kg 120.7 kg 11/22/24 06:37 11/22/24 06:37
--- NOTE | 2024-11-22 12:43 | CT ---
EXAMINATION TYPE: CT abdomen pelvis wo con DATE OF EXAM: 11/22/2024 12:35 PM COMPARISON: None. CLINICAL INDICATION: Male, 54 years old with history of Abdominal pain and elevated lactic acid, Abdo jackson pain and elevated lactic acid TECHNIQUE: Axial images with sagittal coronal reformats. Examination of the solid and hollow viscera is limited given the lack of contrast. CT DLP: 1494.4 mGycm, Automated exposure control for dose reduction was used. FINDINGS: LUNG BASES: No evidence for nodule. No evidence for infiltrate. LIVER/GB: Layering gallstones within the gallbladder lumen without wall thickening. No space-occupyin g hepatic lesion. Hepatic steatosis. PANCREAS: No pancreatic mass identified. No inflammatory process seen. SPLEEN: No evidence for splenomegaly. No intrasplenic lesions seen. ADRENALS: No adrenal nodules identified. No evidence for thickening. KIDNEYS: No evidence for renal mass. No nephrolithiasis. No hydronephrosis. BOWEL: Appendix has a normal appearance. No evidence of bowel obstruction. No inflammatory process. Lymph nodes: No evidence for adenopathy greater than 1 cm. Abdominal aorta: Atheromatous changes seen. No evidence for aneurysm. Genital organs: No significant abnormality. Other: No significant abnormality. IMPRESSION: 1. Uncomplicated cholelithiasis. 2. Improved stool burden. 3. Hepatic steatosis. [facility], , 11/22/2024 12:40 PM
--- NOTE | 2024-11-22 15:10 | XR ---
EXAMINATION TYPE: XR chest 1V portable DATE OF EXAM: 11/22/2024 2:55 PM COMPARISON: Chest radiographs from 05/13/2023 CLINICAL INDICATION: Male, 54 years old with history of chf; TECHNIQUE: XR chest 1V portable Frontal view of the chest. FINDINGS: Lungs/Pleura: There is no evidence of pleural effusion, focal consolidation, or pneumothorax. Pulmonary vascularity: Unremarkable. Heart/mediastinum: Cardiomediastinal silhouette is unremarkable. Left atrial appendage occlusion felix ce is present. Musculoskeletal: No acute osseous pathology. Midline sternotomy wires are noted. Other findings: None IMPRESSION: No evidence for congestive heart failure. No acute cardiopulmonary disease/process. [facility], , 11/22/2024 3:08 PM
--- NOTE | 2024-11-22 15:40 | P.PN ---
Subjective Progress Note Date: 11/22/24 Principal diagnosis: Reason for follow-up is lactic acidosis and question of sepsis Patient is a 54-year-old male with a past medical history negative for heart failure with CVA TIA hypertension hyperlipidemia presenting to the hospital for evaluation of dizziness room spinning unable to drive did have elevated lactic acid probably this consultation On today's evaluation that is 11/22/2024, Patient is afebrile this morning patient denies having any chest pain shortness of breath or cough, the patient is currently on room air, patient denies any abdominal pain no diarrhea no nausea no vomiting The patient white count is 10.2 creatinine 0.[address] abdominal pelvis improved stool burden uncomplicated cholelithiasis chest x-ray no evidence for CHF or acute cardiopulmonary disease Objective - Vital Signs Vital signs: Vital Signs Temp 98.0 F 11/22/24 08:00 Pulse 68 11/22/24 14:00 Resp 16 11/22/24 14:00 BP 132/75 11/22/24 12:00 Pulse Ox 98 11/22/24 12:00 FiO2 Intake & Output 11/21/24 11/22/24 11/22/24 18:59 06:59 18:59 Intake Total 10 900 Balance 10 900 Weight 120.7 kg Intake: IV 10 Invasive Line 2 10 Oral 900 Other: Voiding Method Toilet Toilet # Voids 1 # Bowel Movements 1 - Exam GENERAL DESCRIPTION: Middle-age male up in the chair in no distress RESPIRATORY SYSTEM: Unlabored breathing , decreased breath sounds at bases HEART: S1 S2 regular rate and rhythm , ABDOMEN: Soft , no tenderness EXTREMITIES: No edema feet - Labs CBC & Chem 7: 11/22/24 06:37 11/22/24 06:37 Labs: Abnormal Lab Results - Last 24 Hours (Table) 11/22/24 11/22/24 Range/Units 06:37 06:37 PT 23.9 H (10.0-12.5) sec INR 2.4 H (<1.2) Potassium 3.3 L (3.5-5.1) mmol/L Glucose 105 H (74-99) mg/dL Calcium 8.3 L (8.4-10.2) mg/dL Total Protein 6.0 L (6.3-8.2) g/dL Assessment and Plan (1) Lactic acidosis Current Visit: Yes Status: Acute Code(s): E87.20 - ACIDOSIS, UNSPECIFIED SNOMED Code(s): 86541298 Plan: 1patient presented to hospital mostly with dizziness and weakness questionable prereanl and the patient also have elevated lactic acid but no other features supporting diagnosis of sepsis especially with normal CRP 2-patient also complaining of some abdominal discomfort coupled with elevated lactic acid may benefit from repeat CT with oral contrast as initial CT was done without any contrast repeat CT did shows improving stool burden but did not show any acute process 3-patient needs to be afebrile white count is normal clinical suspicion low for infectious etiology and will monitor closely off antibiotics Dictation was produced using [employer] dictation software. please excuse any grammatical, word or spelling errors. Time with Patient: Less than 30
--- NOTE | 2024-11-22 17:28 | CT ---
EXAMINATION TYPE: CT chest wo con DATE OF EXAM: 11/22/2024 5:10 PM COMPARISON: Previous CT study 05/18/2023. CLINICAL INDICATION: Male, 54 years old with history of h/p aortic graft; PHH, h/p aortic graft TECHNIQUE: Multiple axial images were obtained through the chest. Sagittal and coronal reformats were created for review. MIP was performed on a separate workstation. CT DLP: 760.6 mGycm, Automated exposure control for dose reduction was used. FINDINGS: LUNGS/ PLEURA: The lung parenchyma appears unremarkable. No new suspicious or enlarging pulmonary no dule. AIRWAY: Patent and unremarkable. HEART: Mild cardiomegaly without significant pericardial effusion. Median sternotomy wires. Atrial ap pendage occlusion device. Postoperative changes of previous aortic valve replacement. MEDIASTINUM: No gross evidence of adenopathy. VASCULATURE: No aortic aneurysm. MUSCULOSKELETAL: No acute osseous abnormalities. Multilevel thoracic spine degenerative changes. SOFT TISSUES/LYMPH NODES: Unremarkable. LOWER NECK: No significant findings. UPPER ABDOMEN: Cholelithiasis. Hepatic steatosis. Mild splenomegaly. IMPRESSION: 1. No acute abnormality in the chest. 2. Cardiomegaly and postoperative changes of previous aortic valve replacement as above. 3. Hepatic steatosis and mild spinal megaly. 4. Cholelithiasis. [facility], , 11/22/2024 5:25 PM
[2024-11-22] MEDS: BENZOCAINE SPRAY 1 EACH MM SCH (17:29)
[2024-11-22] MEDS: CYANOCOBALAMIN 500 MCG TAB PO SCH (17:31)
[2024-11-22] MEDS: WARFARIN 5 MG TAB PO ONE (17:31)
--- NOTE | 2024-11-22 17:44 | P.PN ---
Subjective Progress Note Date: 11/22/24 11/22/2024: Patient was seen for a follow-up. Patient had an episode of dizziness, lasting for about 3 to 4 minutes. Patient is sitting comfortably in the recliner. He believes his right side is still slightly weak although getting better. No new concerns. 11/21/2024: Patient initially seen by Dr. Gardner. Please refer to her note for details. Patient is a 54-year-old male with history of left temporal infarct, comes with "dizziness". 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 It lasted for about 10 minutes. He came back home. And had another episode that lasted for 5 minutes, but then noticed that his right side was weaker. Patient has new worsening of his pre-existing right- sided weakness. CT scan suspicious for new left parietal infarct. I reviewed CT head, and do not appear to have any new ischemia. MRI was ordered. Patient and his are present. Patient states he had a stroke on 11/15/2021, which affected his speech and swallow. About 3 weeks later, he had a second stroke, which affected his right side of the body. He required 6 months of therapy. He has some residual weakness of the right arm and right leg. 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 He was placed on IV antibiotics for 6 weeks. Patient states that his right side has got weaker since this current event. He believes that he cannot walk, requires a cane. He is also noticing tremulousness and shakiness of the right arm and hand. Vital signs on arrival blood pressure 166/76, pulse of 84 temperature 98.4. Blood test shows normal CBC, INR 1.8, PTT normal, basic metabolic panel normal. Hepatic panel normal, troponin negative. UA negative. Lactate 2.5. Hemoglobin A1c 5.6. EKG showed sinus rhythm with first-degree AV block. CT head revealed area of cohen-white matter loss of differentiation in the left parietal lobe, concerning for acute CVA. Remote injury to the left temporal lobe with encephalomalacia. I personally reviewed CT head, does not appear anything acute clearly. Agree with area of encephalomalacia. CT of abdomen pelvis showed no evidence for acute abdominal process. Hepatic steatosis. Cholelithiasis, large stool burden in the colon. Home medications include warfarin, aspirin 81 mg, losartan/HCTZ, Lexapro 20 mg, fish oil, Protonix 40 mg, Crestor 5 mg, multivitamin, and metoprolol. Patient's INR is 2.4. CRP less than 0.5. Free T4 normal. TSH is slightly low 0.296. Patient denies any tobacco use, no alcohol. Objective - Vital Signs Vital signs: Vital Signs Temp 98.0 F 11/22/24 08:00 Pulse 68 11/22/24 12:00 Resp 16 11/22/24 08:00 BP 132/75 11/22/24 12:00 Pulse Ox 98 11/22/24 12:00 FiO2 Intake & Output 11/21/24 11/22/24 11/22/24 18:59 06:59 18:59 Intake Total 10 900 Balance 10 900 Weight 120.7 kg Intake: IV 10 Invasive Line 2 10 Oral 900 Other: Voiding Method Toilet Toilet # Voids 1 # Bowel Movements 1 - Exam On examination patient's mental status, cranial nerves are normal. Visual gupta are full. Face has mild right flattening of the right nasolabial fold. On muscle strength testing, patient has right pronator drift about 30 degree. The strength is normal in the left arm and left leg. On the right side, deltoid 5-with giveaway weakness due to pain, normal biceps and triceps, daycare assistant is 4+5-. Ankle dorsiflexion 5-, hip flexion 5-. Sensory to touch is equal. He is noticing some tremulousness of the right hand, stiffness. - Labs CBC & Chem 7: 11/22/24 06:37 11/22/24 06:37 Labs: Abnormal Lab Results - Last 24 Hours (Table) 11/22/24 11/22/24 Range/Units 06:37 06:37 PT 23.9 H (10.0-12.5) sec INR 2.4 H (<1.2) Potassium 3.3 L (3.5-5.1) mmol/L Glucose 105 H (74-99) mg/dL Calcium 8.3 L (8.4-10.2) mg/dL Total Protein 6.0 L (6.3-8.2) g/dL Assessment and Plan Assessment: 1. The patient is a 54-year-old male with a history of previous stroke involving the left temporal region. He presents to the emergency department with dizziness, blurred vision and right-sided weakness. CT scan of the brain reported signs of possible left parietal acute ischemia. The patient's neurological examination is consistent with this. However MRI of the brain revealed no evidence of acute stroke. 2. Subtherapeutic INR 3. History of mechanical aortic valve replacement, due to bacterial endocarditis. 4. History of hypertension 5. History of hyperlipidemia 6. History of CVA 11/15/2021, with residual right-sided weakness. Plan: Patient's strength of the right side of the body is improving. Almost back to baseline. MRI of the brain without contrast just completed. On my review revealed no evidence of acute ischemic stroke. Reveals evidence of old left temporal/insular encephalomalacia. Also revealed evidence of some small vessel disease. Radiology report agreeing with no acute stroke. 2D echo revealed normal LV size and systolic function. LVEF 55 to 60%. Moderately increased septal wall thickness. Mild right atrial dilation. Negative agitated saline bubble study for [id number] shunt. Aortic valve not well-visualized. Otherwise prosthetic aortic valve appears to be functioning normally with a peak gradient of 20 mmHg. No paravalvular aortic regurgitation. No central aortic regurgitation. Patient undergoing YOVANY in the morning. CTA head and neck showed: No evidence of dissection of the cervical internal carotid arteries or vertebral arteries. No evidence of significant stenosis at the carotid bifurcation. No evidence of intracranial high-grade stenosis or intracranial aneurysm. Fasting a.m. lipid panel cholesterol 168, LDL 84, HDL 32 and triglycerides 633. Patient on Crestor 5 mg at home. Would recommend increasing to at least 10 mg. Target LDL <70. Recommend medical treatment for hypertriglyceridemia. Hemoglobin A1c 5.6 Optimize control of blood pressure. Continue warfarin. Keep INR at therapeutic range, as recommended by the cardiology to be maintained between 2.5-3.0. Today INR is 2.4. Patient also on aspirin 81 mg, which will be continued. Patient off Lovenox. Neuro checks every 4 hours B12 314, folate 13.10 we will start oral B12 replacement for borderline B12 level.. EEG was normal during wakefulness, drowsiness and stage II sleep. No focal, lateralized or epileptiform activity was seen. Telemetry monitoring rule out any arrhythmia PT, OT, speech therapy DVT prophylaxis: Patient on warfarin.
[2024-11-22] MEDS ORDERED: Potassium Replacement Protocol 1 EACH MISC MISCELLANE PRN (20:01)
[2024-11-22] MEDS: POTASSIUM CHLORIDE ER 20 MEQ TAB.ER PO SCH (20:17)
--- NOTE | 2024-11-22 21:01 | PN ---
PROGRESS NOTE DATE OF SERVICE: 11/22/2024 SUBJECTIVE: This 54-year-old gentleman with dizziness and weakness of the right side is being evaluated for acute stroke. The abdomen and pelvis CAT scan showed uncomplicated cholelithiasis. The brain MRI showed subtle malacia of the left frontal lobe. The YOVANY has been requested by Dr. Tinoco. PAST MEDICAL HISTORY: Reviewed. REVIEW OF SYSTEMS: Fourteen-point review of systems negative except as mentioned earlier. CURRENT MEDICATIONS: Reviewed. PHYSICAL EXAMINATION: VITAL SIGNS: Pulse is 68, blood pressure 138/75, respirations 16. HEENT: Conjunctivae normal. NECK: No JVD. CARDIOVASCULAR: S1, S2. RESPIRATIONS: Breath sounds diminished at the bases. No rhonchi. No crackles. ABDOMEN: Soft. LEGS: No edema. NERVOUS SYSTEM: Right-sided weakness. LABORATORY DATA: Noted. ASSESSMENT: 1. Right-sided weakness and dizziness with possible left frontal lobe stroke versus acute transient ischemic attack. 2. Elevated lactic acid, rule out sepsis. 3. Elevated triglycerides, hypertriglyceridemia. 4. Hypertension. 5. Hyperlipidemia. 6. History of sleep apnea. 7. History of aortic ascending aorta replacement. RECOMMENDATIONS: Recommended to continue current management and continue symptomatic treatment. YOVANY. Otherwise, cultures are negative so far. ESR is only 4. Closely follow with multiple consultants and further recommendations to follow. I recommend procal evaluations also. KARIN / CATRACHITON: [id number] /
[2024-11-23 06:49] LABS: Basophils # (A) 0.1 k/uL (0-0.2); Basophils % (A) 1 %; Eosinophils # (A) 0.2 k/uL (0-0.7); Eosinophils % (A) 2 %; HCT 39.9 % (39.0-53.0); Lymphocytes # (A) 1.8 k/uL (1.0-4.8); Lymphocytes % (A) 20 %; MCH 29.3 pg (25.0-35.0); MCHC 35.1 g/dL (31.0-37.0); MCV 83.5 fL (80.0-100.0); Mean Platelet Volume 6.8; Monocytes # (A) 0.6 k/uL (0-1.0); Monocytes % (A) 7 %; Neutrophils % (A) 69 %; Platelet Count 225 k/uL (150-450); RBC 4.78 m/uL (4.30-5.90); RDW 13.6 % (11.5-15.5); WBC 8.7 k/uL (3.8-10.6)
[2024-11-23 07:10] LABS: ALT 31 U/L (4-49); AST 27 U/L (17-59); African American GFR (CKD) >90 (>60 ml/min/1.73 sqM); Albumin 3.9 g/dL (3.5-5.0); Alkaline Phosphatase 53 U/L (38-126); Anion Gap 6 mmol/L; Blood Urea Nitrogen 12 mg/dL (9-20); Calcium 8.8 mg/dL (8.4-10.2); Carbon Dioxide 30 mmol/L (22-30); Chloride 101 mmol/L (98-107); Glucose 106 mg/dL (74-99); Non-African American GFR(CKD) >90 (>60 ml/min/1.73 sqM); Potassium 3.2 mmol/L (3.5-5.1); Sodium 137 mmol/L (137-145); Total Bilirubin 1.2 mg/dL (0.2-1.3); Total Protein 6.5 g/dL (6.3-8.2)
[2024-11-23 07:12] LABS: INR 1.9 (<1.2); Prothrombin Time 19.4 sec (10.0-12.5)
[2024-11-23 09:03] LABS: Basophils # (A) 0.1 k/uL (0-0.2); Basophils % (A) 1 %; Eosinophils # (A) 0.2 k/uL (0-0.7); Eosinophils % (A) 3 %; HCT 41.8 % (39.0-53.0); HGB 14.8 gm/dL (13.0-17.5); Lymphocytes # (A) 1.6 k/uL (1.0-4.8); Lymphocytes % (A) 18 %; MCH 29.3 pg (25.0-35.0); MCHC 35.3 g/dL (31.0-37.0); MCV 82.9 fL (80.0-100.0); Mean Platelet Volume 6.8; Monocytes # (A) 0.6 k/uL (0-1.0); Monocytes % (A) 6 %; Neutrophils # (A) 6.3 k/uL (1.3-7.7); Neutrophils % (A) 71 %; Platelet Count 248 k/uL (150-450); RBC 5.04 m/uL (4.30-5.90); RDW 13.5 % (11.5-15.5); WBC 8.8 k/uL (3.8-10.6)
[2024-11-23] MEDS: EZETIMIBE 10 MG TAB PO SCH (09:15)
[2024-11-23] MEDS: HEPARIN SOD,PORK IN 0.45% NACL 25,000 UNIT in 0.45% NACL 1 250ML.BAG IV SCH (09:15)
[2024-11-23] MEDS: HEPARIN SODIUM 1,000 UN/ML (10ML VL) IV ONE (09:17)
[2024-11-23 09:19] LABS: Partial Thromboplastin Time 28.6 sec (22.0-30.0)
[2024-11-23] MEDS: BENZOCAINE SPRAY 1 EACH MM ONE ×3 (12:05→12:25)
[2024-11-23] MEDS: SODIUM CHLORIDE 0.9% 500 ML 500 ML IV ONE (12:15)
[2024-11-23] MEDS: fentaNYL (PF) 50 MCG/ML 2 ML AMP IVP ONE (12:27)
[2024-11-23] MEDS: MIDAZOLAM 2 MG/2 ML VIAL IVP ONE ×2 (12:27→12:29)
--- NOTE | 2024-11-23 12:46 | P.PN ---
Subjective HISTORY OF PRESENT ILLNESS: This is a 54-year-old male with a past medical history significant for unicuspid aortic valve status post mechanical aortic valve replacement and aortic root replacement, hypertension, hyperlipidemia, CVA, and cardiomyopathy. Patient used to follow in the office with Dr. Eastman 2021 but now follows with Dr. Moran out of [place]. We have been asked to see the patient in consultation for history of aortic valve replacement. Patient examined at the bedside. Patient presented to the hospital with a chief complaint of headache and a stiff neck. The patient does have a history of right sided weakness from a previous CVA in 2021. However, he also reports worsening right sided weakness and is now requiring a cane for ambulation. Patient states that he gets his INR checked every 2 weeks on an outpatient basis. He states his last INR was noted to be 2.2. Patient states he has been compliant with his Coumadin. INR on admission was noted to be 1.8. Patient was started on Lovenox and continued on Coumadin. Repeat INR today is 2.4. DIAGNOSTICS: - EKG reveals sinus mechanism with no signs of acute ischemia. - Laboratory data: WBC 10.2. Hemoglobin 13.1. Platelet count 228. INR 2.4. Sodium 138. Potassium 3.3. BUN 16. Creatinine 0.78. - Current home cardiac medications include warfarin 5 mg Thursday and Thursday and 7.5 mg Thursday, rosuvastatin 5 mg daily, metoprolol succinate 25 mg twice a day, aspirin 81 mg daily. -YOVANY performed in May 2023 revealed mechanical aortic valve with normal function. There is 1.9 x 0.8 mm echodensity on the aortic side of the aortic valve consistent with possible vegetation versus artifact. Lumason was used which appeared to move through echodensity more consistent with artifact. Mitral valve appears to be normal with mild MR, tricuspid valve normal with trace TR, intra-atrial septum is intact. No evidence of PFO. Left atrial appendage has been ligated and is free of clot. EF 55%. Ascending aortic root graft appears patent without vegetation or echodensity. -Echocardiogram obtained this admission reveals ejection fraction 55 to 60%, negative bubble study, normally functioning mechanical aortic valve with peak gradient 20 mmHg mean gradient 12 mmHg, no perivalvular aortic regurgitation. - Cardiac catheterization history: December 2020 revealing normal coronary arteries 11/23/2024 Patient examined this morning at the bedside. Patient currently denies chest pain or pressure. He denies shortness of breath. He continues to have right sided weakness. INR today 1.9. Patient is maintained on Coumadin. He is scheduled to undergo YOVANY today with Dr. Melvin. PHYSICAL EXAM: VITAL SIGNS: Reviewed. GENERAL: Well-developed in no acute distress. HEENT: Head is normocephalic. Pupils are equal, round. Sclerae anicteric. Mucous membranes of the mouth are moist. Neck supple. No JVD or thyromegaly LUNGS: Respirations even and unlabored. Lungs essentially clear to auscultation bilaterally. HEART: Regular rate and rhythm. S1 and S2 heard. Mechanical click noted. ABDOMEN: Soft. Nondistended. Nontender. EXTREMITIES: Normal range of motion. No clubbing or cyanosis. Peripheral pulses intact. No lower extremity edema NEUROLOGIC: Awake and alert. Oriented x 3. ASSESSMENT: Headache, neck pain, and worsening right sided weakness, CT with possible signs of left parietal acute ischemia., MRI of the brain negative for CVA Subtherapeutic INR History of unicuspid aortic valve with severe aortic valve regurgitation, status post On-X mechanical aortic valve replacement, 2020 Moderate aortic root and ascending dilation, status post ascending aortic replacement with 32 mm Gelweave straight graft, 2020 Normal coronary arteries, per cath in 2020 Hypertension Hyperlipidemia History of CVA with residual right-sided weakness, 2021 History of nonischemic cardiomyopathy, EF 40%, with recovered EF now 55 to 60% PLAN: Continue current cardiac medications Continue Coumadin. Recommend patient keep his INR between 2.53. Continue IV heparin as INR today is only 1.9. Patient to undergo YOVANY today with Dr. Melvin Further recommendations pending patient course Nurse practitioner note has been reviewed by physician. Signing provider agrees with the documented findings, assessment, and plan of care documented by PRECIPITATOR as a scribe. Objective - Vital Signs Vital signs: Vital Signs Temp 98.1 F 11/23/24 10:34 Pulse 66 11/23/24 11:20 Resp 16 11/23/24 11:20 BP 150/88 11/23/24 11:20 Pulse Ox 92 L 11/23/24 11:20 FiO2 Intake & Output 11/22/24 11/23/24 11/23/24 18:59 06:59 18:59 Intake Total 900 500 160 Balance 900 500 160 Weight 116.7 kg Intake: IV 20 160 Invasive Line 2 20 10 Oral 900 480 Other: Voiding Method Toilet Toilet Toilet # Voids 2 - Labs CBC & Chem 7: 11/23/24 08:46 11/23/24 06:21 Labs: Abnormal Lab Results - Last 24 Hours (Table) 11/23/24 11/23/24 11/23/24 Range/Units 06:21 06:21 08:46 PT 19.4 H 20.0 H (10.0-12.5) sec INR 1.9 H 2.0 H (<1.2) Potassium 3.2 L (3.5-5.1) mmol/L Glucose 106 H (74-99) mg/dL Microbiology - Last 24 Hours (Table) 11/21/24 13:20 Blood Culture - Preliminary Blood
--- NOTE | 2024-11-23 12:49 | P.PCN ---
Date of Procedure: 11/23/24 Description of Procedure: Indication: CVA Procedure Description: After explaining the procedure to the patient, it's risk and complications, blood pressure, heart rate and O2 saturation were monitored. The throat was sprayed with Cetacaine. Patient received 3 mg intravenous Versed, 50 mcg intravenous fentanyl. The probe was introduced into the esophagus without difficulty. Images were obtained. Following that, the probe was removed. There was no immediate complication. Findings: Left atrial size is mildly dilated, left atrial appendage has been ligated with no evidence of thrombus. Left ventricular size and systolic function are normal. The mitral valve appears to be normal. Tricuspid valve is normal. The aortic valve is a prosthetic aortic valve, On-X valve with normal appearance. Descending thoracic aorta appears to be normal. No pericardial effusion was noted. Contrast bubble study revealed no shunting across the interatrial septum with Valsalva maneuver. Doppler: Pulse wave and color Doppler were obtained, and revealed mild to moderate mitral regurgitation with multiple jets, there was trace to mild perivalvular aortic regurgitation. Trace to mild tricuspid regurgitation was noted. No shunting across the interatrial septum with color Doppler study. Conclusion: 1. Mildly dilated left atrium with evidence of closure of the left atrial appendage and no evidence of flow by color study 2. Normal left ventricular size and systolic function 3. Prosthetic aortic valve, On-x with normal appearance with trace to mild perivalvular aortic regurgitation. 4. Mild to moderate multiple jets mitral regurgitation 5. No shunting across the interatrial septum 6. Normal appearance of the descending thoracic aorta Duration of sedation 15 minutes.
[2024-11-23] MEDS: POTASSIUM CHLORIDE ER 20 MEQ TAB.ER PO SCH (13:58)
--- NOTE | 2024-11-23 16:56 | P.PN ---
Subjective Progress Note Date: 11/23/24 11/23/2024: Patient was seen for follow-up. Patient is doing better. Patient is currently on heparin because INR is subtherapeutic. Patient had undergone YOVANY today. No new concerns. 11/22/2024: Patient was seen for a follow-up. Patient had an episode of dizziness, lasting for about 3 to 4 minutes. Patient is sitting comfortably in the recliner. He believes his right side is still slightly weak although getting better. No new concerns. 11/21/2024: Patient initially seen by Dr. Gardner. Please refer to her note for details. Patient is a 54-year-old male with history of left temporal infarct, comes with "dizziness". 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 It lasted for about 10 minutes. He came back home. And had another episode that lasted for 5 minutes, but then noticed that his right side was weaker. Patient has new worsening of his pre-existing right- sided weakness. CT scan suspicious for new left parietal infarct. I reviewed CT head, and do not appear to have any new ischemia. MRI was ordered. Patient and his are present. Patient states he had a stroke on 11/15/2021, which affected his speech and swallow. About 3 weeks later, he had a second stroke, which affected his right side of the body. He required 6 months of therapy. He has some residual weakness of the right arm and right leg. 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 He was placed on IV antibiotics for 6 weeks. Patient states that his right side has got weaker since this current event. He believes that he cannot walk, requires a cane. He is also noticing tremulousness and shakiness of the right arm and hand. Vital signs on arrival blood pressure 166/76, pulse of 84 temperature 98.4. Blood test shows normal CBC, INR 1.8, PTT normal, basic metabolic panel normal. Hepatic panel normal, troponin negative. UA negative. Lactate 2.5. Hemoglobin A1c 5.6. EKG showed sinus rhythm with first-degree AV block. CT head revealed area of cohen-white matter loss of differentiation in the left parietal lobe, concerning for acute CVA. Remote injury to the left temporal lobe with encephalomalacia. I personally reviewed CT head, does not appear anything acute clearly. Agree with area of encephalomalacia. CT of abdomen pelvis showed no evidence for acute abdominal process. Hepatic steatosis. Cholelithiasis, large stool burden in the colon. Home medications include warfarin, aspirin 81 mg, losartan/HCTZ, Lexapro 20 mg, fish oil, Protonix 40 mg, Crestor 5 mg, multivitamin, and metoprolol. Patient's INR is 2.4. CRP less than 0.5. Free T4 normal. TSH is slightly low 0.296. Patient denies any tobacco use, no alcohol. Objective - Vital Signs Vital signs: Vital Signs Temp 98.2 F 11/23/24 13:06 Pulse 72 11/23/24 13:46 Resp 16 11/23/24 13:46 BP 136/84 11/23/24 13:46 Pulse Ox 96 11/23/24 13:46 FiO2 Intake & Output 11/22/24 11/23/24 11/23/24 18:59 06:59 18:59 Intake Total 900 500 160 Balance 900 500 160 Weight 116.7 kg Intake: IV 20 160 Invasive Line 2 20 10 Oral 900 480 Other: Voiding Method Toilet Toilet Toilet # Voids 2 3 - Exam On examination patient's mental status, cranial nerves are normal. Visual gupta are full. Face has mild right flattening of the right nasolabial fold. On muscle strength testing, patient has right pronator drift about 30 degree. The strength is normal in the left arm and left leg. 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 Ankle dorsiflexion 5-, hip flexion 5-. Sensory to touch is equal. He is noticing some tremulousness of the right hand, stiffness. - Labs CBC & Chem 7: 11/23/24 08:46 11/23/24 06:21 Labs: Abnormal Lab Results - Last 24 Hours (Table) 11/23/24 11/23/24 11/23/24 Range/Units 06:21 06:21 08:46 PT 19.4 H 20.0 H (10.0-12.5) sec INR 1.9 H 2.0 H (<1.2) Potassium 3.2 L (3.5-5.1) mmol/L Glucose 106 H (74-99) mg/dL Microbiology - Last 24 Hours (Table) 11/21/24 13:20 Blood Culture - Preliminary Blood Assessment and Plan Assessment: 1. The patient is a 54-year-old male with a history of previous stroke involving the left temporal region. He presents to the emergency department with dizziness, blurred vision and right-sided weakness. CT scan of the brain reported signs of possible left parietal acute ischemia. The patient's neurological examination is consistent with this. However MRI of the brain revealed no evidence of acute stroke. 2. Subtherapeutic INR 3. History of mechanical aortic valve replacement, due to bacterial endocarditis. 4. History of hypertension 5. History of hyperlipidemia 6. History of CVA 11/15/2021, with residual right-sided weakness. Plan: Patient's strength of the right side of the body is improving. Almost back to baseline. MRI of the brain without contrast just completed. On my review revealed no evidence of acute ischemic stroke. Reveals evidence of old left temporal/insular encephalomalacia. Also revealed evidence of some small vessel disease. Radiology report agreeing with no acute stroke. 2D echo revealed normal LV size and systolic function. LVEF 55 to 60%. Moderat bebe increased septal wall thickness. Mild right atrial dilation. Negative agitated saline bubble study for [id number] shunt. Aortic valve not well- visualized. Otherwise prosthetic aortic valve appears to be functioning normally with a peak gradient of 20 mmHg. No paravalvular aortic regurgitation. No central aortic regurgitation. Transesophageal echocardiography performed today: 1. Mildly dilated left atrium with evidence of closure of the left atrial appendage and no evidence of flow by color study 2. Normal left ventricular size and systolic function 3. Prosthetic aortic valve, On-x with normal appearance with trace to mild perivalvular aortic regurgitation. 4. Mild to moderate multiple jets mitral regurgitation 5. No shunting across the interatrial septum 6. Normal appearance of the descending thoracic aorta We will defer to cardiology regarding mild to moderate multiple jets MR. CTA head and neck showed: No evidence of dissection of the cervical internal carotid arteries or vertebral arteries. No evidence of significant stenosis at the carotid bifurcation. No evidence of intracranial high-grade stenosis or intracranial aneurysm. Fasting a.m. lipid panel cholesterol 168, LDL 84, HDL 32 and triglycerides 633. Patient on Crestor 5 mg at home. Would recommend increasing to at least 10 mg. Target LDL <70. Recommend medical treatment for hypertriglyceridemia. Hemoglobin A1c 5.6 Optimize control of blood pressure. Continue warfarin. Keep INR at therapeutic range, as recommended by the cardiology to be maintained between 2.5-3.0. Today INR is 2.0. Patient also on aspirin 81 mg, which will be continued. Patient on heparin drip for bridging before INR becomes therapeutic. Neuro checks every 4 hours B12 314, folate 13.10 we will start oral B12 replacement for borderline B12 level.. EEG was normal during wakefulness, drowsiness and stage II sleep. No focal, lateralized or epileptiform activity was seen. Telemetry monitoring rule out any arrhythmia PT, OT, speech therapy DVT prophylaxis: Patient on warfarin. Patient clear from neurology point, when cleared by cardiology.
--- NOTE | 2024-11-23 17:16 | P.PN ---
Subjective Progress Note Date: 11/23/24 Principal diagnosis: Reason for follow-up is lactic acidosis and question of sepsis Patient is a 54-year-old male with a past medical history negative for heart failure with CVA TIA hypertension hyperlipidemia presenting to the hospital for evaluation of dizziness room spinning unable to drive did have elevated lactic acid probably this consultation On today's evaluation that is 11/23/2024,the patient remains to be afebrile the patient is currently breathing comfortably on room air the patient is status post YOVANY completed this afternoon patient is slightly sleepy however overall doing well as reported by the at the bedside. The patient white count is 8.8 YOVANY did not show any vegetation blood culture has been negative Objective - Vital Signs Vital signs: Vital Signs Temp 98.1 F 11/23/24 10:34 Pulse 66 11/23/24 11:20 Resp 16 11/23/24 11:20 BP 150/88 11/23/24 11:20 Pulse Ox 92 L 11/23/24 11:20 FiO2 Intake & Output 11/22/24 11/23/24 11/23/24 18:59 06:59 18:59 Intake Total 900 500 160 Balance 900 500 160 Weight 116.7 kg Intake: IV 20 160 Invasive Line 2 20 10 Oral 900 480 Other: Voiding Method Toilet Toilet Toilet # Voids 2 - Exam GENERAL DESCRIPTION: Middle-age male up in the chair in no distress RESPIRATORY SYSTEM: Unlabored breathing , decreased breath sounds at bases HEART: S1 S2 regular rate and rhythm , ABDOMEN: Soft , no tenderness EXTREMITIES: No edema feet - Labs CBC & Chem 7: 11/23/24 08:46 11/23/24 06:21 Labs: Abnormal Lab Results - Last 24 Hours (Table) 11/23/24 11/23/24 11/23/24 Range/Units 06:21 06:21 08:46 PT 19.4 H 20.0 H (10.0-12.5) sec INR 1.9 H 2.0 H (<1.2) Potassium 3.2 L (3.5-5.1) mmol/L Glucose 106 H (74-99) mg/dL Microbiology - Last 24 Hours (Table) 11/21/24 13:20 Blood Culture - Preliminary Blood Assessment and Plan (1) Lactic acidosis Current Visit: Yes Status: Acute Code(s): E87.20 - ACIDOSIS, UNSPECIFIED SNOMED Code(s): 81228919 Plan: 1patient presented to hospital mostly with dizziness and weakness questionable prereanl and the patient also have elevated lactic acid but no other features supporting diagnosis of sepsis especially with normal CRP 2-patient also complaining of some abdominal discomfort coupled with elevated lactic acid may benefit from repeat CT with oral contrast as initial CT was done without any contrast repeat CT did shows improving stool burden but did not show any acute process 3-patient remains to be afebrile did have a YOVANY that was negative for any vegetation blood culture have been negative will monitor closely off antibiotic Dictation was produced using [employer] dictation software. please excuse any grammatical, word or spelling errors. Time with Patient: Less than 30
[2024-11-23] MEDS: WARFARIN 7.5 MG TAB PO ONE (17:32)
[2024-11-23] MEDS: SODIUM CHLORIDE 0.9% 1,000 ML IV SCH (17:33)
[2024-11-23] MEDS: HEPARIN SODIUM 1,000 UN/ML (10ML VL) IV PRN (21:26)
[2024-11-24 04:09] LABS: INR 1.8 (<1.2)
[2024-11-24 04:11] LABS: Basophils # (A) 0.1 k/uL (0-0.2); Basophils % (A) 1 %; Eosinophils # (A) 0.2 k/uL (0-0.7); Eosinophils % (A) 2 %; HCT 42.6 % (39.0-53.0); HGB 14.8 gm/dL (13.0-17.5); Lymphocytes # (A) 2.4 k/uL (1.0-4.8); Lymphocytes % (A) 25 %; MCH 29.2 pg (25.0-35.0); MCHC 34.7 g/dL (31.0-37.0); MCV 84.1 fL (80.0-100.0); Mean Platelet Volume 7.1; Monocytes # (A) 0.6 k/uL (0-1.0); Monocytes % (A) 6 %; Neutrophils # (A) 6.2 k/uL (1.3-7.7); Neutrophils % (A) 65 %; Platelet Count 243 k/uL (150-450); RBC 5.07 m/uL (4.30-5.90); RDW 13.9 % (11.5-15.5); WBC 9.6 k/uL (3.8-10.6)
[2024-11-24 07:47] LABS: African American GFR (CKD) >90 (>60 ml/min/1.73 sqM); Anion Gap 12 mmol/L; Blood Urea Nitrogen 19 mg/dL (9-20); Calcium 8.8 mg/dL (8.4-10.2); Carbon Dioxide 22 mmol/L (22-30); Chloride 103 mmol/L (98-107); Glucose 116 mg/dL (74-99); Non-African American GFR(CKD) >90 (>60 ml/min/1.73 sqM); Potassium 3.5 mmol/L (3.5-5.1); Sodium 137 mmol/L (137-145)
--- NOTE | 2024-11-24 09:52 | P.PN ---
Subjective Progress Note Date: 11/23/24 This is a pleasant 54-year-old who came in with weakness and generalized difficulty in ambulating with history of stroke in the past undergoing thorough neurological evaluation including MRI of the brain which was negative for acute stroke. Patient is being followed by cardiology scheduled to undergo YOVANY today and is maintained on IV heparin as well as Coumadin as patient is subtherapeutic. INR is 2.0 and cardiology following making adjustments to medications recommending continue on IV heparin. Patient did work with physical therapy and reports is at baseline and would not qualify for rehab. Patient is currently n.p.o. awaiting YOVANY and will await official report. Review of systems: Constitutional: No reports of fatigue, fever, or chills Cardiovascular: No reports of chest pain or palpitations Respiratory: No reports of shortness of breath or cough GI: reports of nausea, no reports of of vomiting, : No reports of dysuria or retention Neurovascular: reports of generalized weakness, although appears to be at baseline PHYSICAL EXAMINATION: GENERAL: The patient is alert and oriented x4, Well developed, well nourished. Obese HEENT: Pupils are round and equally reacting to light. EOMI. no scleral icterus. No conjunctival pallor. Normocephalic, atraumatic. No pharyngeal erythema. No thyromegaly. CARDIOVASCULAR: S1 and S2 muffled PULMONARY: diminished breath sounds bilaterally with no wheezing or rhonchi noted. ABDOMEN: soft. Nontender on exam. obese. non-distended, normoactive bowel sounds. No palpable organomegaly. MUSCULOSKELETAL: No joint swelling or deformity. EXTREMITIES: No cyanosis, clubbing, or pedal edema. NEUROLOGICAL: Gross neurological examination did not reveal any focal deficits. Diffuse weakness SKIN: No rashes. Assessment: Right sided weakness and dizziness with possible left frontal lobe stroke versus acute TIA, MRI was negative for stroke Elevated lactic acid, rule out sepsis Elevated triglycerides hypertriglyceridemia Hypertension Hyperlipidemia History of CVA/TIA History of nonischemic cardiomyopathy, EF 40% and recovered at 55 to 60% History of depression Obesity with a BMI of 32.0 History of sleep apnea History of ascending unicuspid aortic valve with severe aortic valve regurgitation replacement status post mechanical aortic valve replacement and aortic root replacement GI prophylaxis DVT prophylaxis Full code Plan: Recommend to continue with current medications and management with cardiology and neurology following undergoing extensive workup. Patient is scheduled to undergo YOVANY today and currently n.p.o. Will await cardiology report Continue IV heparin with pharmacy to dose Coumadin and continue bridging until INR is at least 2.7-3 per cardiology. Discussed with cardiology regarding possible bridging with Lovenox although it is not indicated in someone with previous mechanical valve. Per cardiology patient is not to discharge until INR is 2.5 Infectious diseases following and patient is being monitored off antibiotics as patient does not appear septic or infectious at all. Follow-up on repeat labs in the a.m. Encouraged increase activity as tolerated with getting up out of the bed more often as patient is mostly laying in bed all day Patient was evaluated by physical therapy and will be going home on discharge The impression and plan of care has been dictated by Keli Edmonds, nurse practitioner as directed. Dr. Paul MD I have performed a history and examination and MDM of this patient, discussed the same with the dictator, and agree with the dictator's assessment and plan as written ,documented as a scribe. Based on total visit time, I have performed more than 50% of the visit. Any additional findings or plans will be noted. Objective - Vital Signs Vital signs: Vital Signs Temp 98.2 F 11/23/24 13:06 Pulse 66 11/23/24 14:01 Resp 16 11/23/24 14:01 BP 146/85 11/23/24 14:01 Pulse Ox 95 11/23/24 14:01 FiO2 Intake & Output 11/22/24 11/23/24 11/23/24 18:59 06:59 18:59 Intake Total 900 500 170 Balance 900 500 170 Weight 116.7 kg Intake: IV 20 170 Invasive Line 2 20 20 Oral 900 480 Other: Voiding Method Toilet Toilet Toilet # Voids 2 3 - Labs CBC & Chem 7: 11/24/24 03:28 11/24/24 06:22 Labs: Abnormal Lab Results - Last 24 Hours (Table) 11/23/24 11/23/24 11/23/24 Range/Units 06:21 06:21 08:46 PT 19.4 H 20.0 H (10.0-12.5) sec INR 1.9 H 2.0 H (<1.2) Potassium 3.2 L (3.5-5.1) mmol/L Glucose 106 H (74-99) mg/dL Microbiology - Last 24 Hours (Table) 11/21/24 13:20 Blood Culture - Preliminary Blood
[2024-11-24] MEDS: FENOFIBRATE 54 MG TAB PO SCH (10:47)
--- NOTE | 2024-11-24 11:24 | P.PN ---
Subjective HISTORY OF PRESENT ILLNESS: This is a 54-year-old male with a past medical history significant for unicuspid aortic valve status post mechanical aortic valve replacement and aortic root replacement, hypertension, hyperlipidemia, CVA, and cardiomyopathy. Patient used to follow in the office with Dr. Eastman 2021 but now follows with Dr. Moran out of [place]. We have been asked to see the patient in consultation for history of aortic valve replacement. Patient examined at the bedside. Patient presented to the hospital with a chief complaint of headache and a stiff neck. The patient does have a history of right sided weakness from a previous CVA in 2021. However, he also reports worsening right sided weakness and is now requiring a cane for ambulation. Patient states that he gets his INR checked every 2 weeks on an outpatient basis. He states his last INR was noted to be 2.2. Patient states he has been compliant with his Coumadin. INR on admission was noted to be 1.8. Patient was started on Lovenox and continued on Coumadin. Repeat INR today is 2.4. DIAGNOSTICS: - EKG reveals sinus mechanism with no signs of acute ischemia. - Laboratory data: WBC 10.2. Hemoglobin 13.1. Platelet count 228. INR 2.4. Sodium 138. Potassium 3.3. BUN 16. Creatinine 0.78. - Current home cardiac medications include warfarin 5 mg Thursday and Thursday and 7.5 mg Thursday, rosuvastatin 5 mg daily, metoprolol succinate 25 mg twice a day, aspirin 81 mg daily. -YOVANY performed in May 2023 revealed mechanical aortic valve with normal function. There is 1.9 x 0.8 mm echodensity on the aortic side of the aortic valve consistent with possible vegetation versus artifact. Lumason was used which appeared to move through echodensity more consistent with artifact. Mitral valve appears to be normal with mild MR, tricuspid valve normal with trace TR, intra-atrial septum is intact. No evidence of PFO. Left atrial appendage has been ligated and is free of clot. EF 55%. Ascending aortic root graft appears patent without vegetation or echodensity. -Echocardiogram obtained this admission reveals ejection fraction 55 to 60%, negative bubble study, normally functioning mechanical aortic valve with peak gradient 20 mmHg mean gradient 12 mmHg, no perivalvular aortic regurgitation. - Cardiac catheterization history: December 2020 revealing normal coronary arteries 11/23/2024 Patient examined this morning at the bedside. Patient currently denies chest pain or pressure. He denies shortness of breath. He continues to have right sided weakness. INR today 1.9. Patient is maintained on Coumadin. He is scheduled to undergo YOVANY today with Dr. Melvin. 11/24/2024 Patient examined this morning at the bedside. He underwent YOVANY yesterday with no evidence of thrombus or vegetation. Patient currently denies chest pain or pressure. He denies shortness of breath. INR today 1.8. He remains on Coumadin and IV Heparin. PHYSICAL EXAM: VITAL SIGNS: Reviewed. GENERAL: Well-developed in no acute distress. HEENT: Head is normocephalic. Pupils are equal, round. Sclerae anicteric. Mucous membranes of the mouth are moist. Neck supple. No JVD or thyromegaly LUNGS: Respirations even and unlabored. Lungs essentially clear to auscultation bilaterally. HEART: Regular rate and rhythm. S1 and S2 heard. Mechanical click noted. ABDOMEN: Soft. Nondistended. Nontender. EXTREMITIES: Normal range of motion. No clubbing or cyanosis. Peripheral pulses intact. No lower extremity edema NEUROLOGIC: Awake and alert. Oriented x 3. ASSESSMENT: Headache, neck pain, and worsening right sided weakness, CT with possible signs of left parietal acute ischemia., MRI of the brain negative for CVA Subtherapeutic INR History of unicuspid aortic valve with severe aortic valve regurgitation, status post On-X mechanical aortic valve replacement, 2020 Moderate aortic root and ascending dilation, status post ascending aortic replacement with 32 mm Gelweave straight graft, 2020 Normal coronary arteries, per cath in 2020 Hypertension Hyperlipidemia History of CVA with residual right-sided weakness, 2021 History of nonischemic cardiomyopathy, EF 40%, with recovered EF now 55 to 60% PLAN: Continue current cardiac medications Continue Coumadin. Recommend patient keep his INR between 2.53 due to hx of CVA and continued neurologic symptoms. Continue IV heparin as INR today is 1.8 Further recommendations pending patient course Nurse practitioner note has been reviewed by physician. Signing provider agrees with the documented findings, assessment, and plan of care documented by WEIGHT RECORDER as a scribe. Objective - Vital Signs Vital signs: Vital Signs Temp 98.4 F 11/24/24 08:28 Pulse 78 11/24/24 08:30 Resp 18 11/24/24 08:30 BP 144/85 11/24/24 08:28 Pulse Ox 95 11/24/24 08:28 FiO2 Intake & Output 11/23/24 11/24/24 11/24/24 18:59 06:59 18:59 Intake Total 468.839 703.283 Balance 468.839 703.283 Weight 116 kg Intake: IV 170 Invasive Line 2 20 Intake, IV Titration 58.839 163.283 Amount Heparin Sod,Pork in 0.45% 58.839 163.283 NaCl 25,000 unit In 0.45 % NaCl 1 250ml.bag @ 8.57 UNITS/KG/HR 10.001 mls/ hr IV .Q24H [facility] Rx#: [id number] Oral 240 540 Other: Voiding Method Toilet Toilet Toilet # Voids 3 2 - Labs CBC & Chem 7: 11/24/24 03:28 11/24/24 06:22 Labs: Abnormal Lab Results - Last 24 Hours (Table) 11/23/24 11/23/24 11/24/24 Range/Units 14:38 20:39 03:28 PT 18.0 H (10.0-12.5) sec INR 1.8 H (<1.2) APTT 33.7 H 30.9 H (22.0-30.0) sec Glucose (74-99) mg/dL 11/24/24 11/24/24 Range/Units 03:28 06:22 PT (10.0-12.5) sec INR (<1.2) APTT 40.8 H (22.0-30.0) sec Glucose 116 H (74-99) mg/dL Microbiology - Last 24 Hours (Table) 11/21/24 13:20 Blood Culture - Preliminary Blood
--- NOTE | 2024-11-24 14:05 | XR ---
EXAMINATION TYPE: XR mandible limited <4V DATE OF EXAM: 11/24/2024 1:39 PM COMPARISON: None CLINICAL INDICATION: Male, 54 years old with history of right lower jaw pain; [facility] TECHNIQUE: : XR mandible limited <4V views of the mandible were obtained. FINDINGS: Dental work noted bilaterally. The mandible is intact. Dental work noted. Radiographic evaluation of the orbits fail to demonstrate evidence of an orbital fracture. The adjacent paranasal sinuses are well aerated an without evidence of intra-cavitary fluid accumulation. The nasal bridge appears intact. The mandible appears intact. M astoid air cells are well aerated. The frontal sinus and maxillary sinuses are well aerated. IMPRESSION: Intact mandible. No evidence of fracture. [facility], , 11/24/2024 2:03 PM
[2024-11-24 14:27] LABS: C-ANCA <1:20 Titer (<1:20)
[2024-11-24] MEDS: HYDROcodone/APAP 5-325MG 1 EACH TAB PO PRN (15:03)
--- NOTE | 2024-11-24 15:33 | P.PN ---
Subjective Progress Note Date: 11/24/24 Principal diagnosis: Reason for follow-up is lactic acidosis and question of sepsis Patient is a 54-year-old male with a past medical history negative for heart failure with CVA TIA hypertension hyperlipidemia presenting to the hospital for evaluation of dizziness room spinning unable to drive did have elevated lactic acid probably this consultation On today's evaluation that is 11/24/2024,the patient remains to be afebrile, patient is on room air not requiring supplemental oxygen and denies any shortness of breath no chest pain or cough.Patient denies having any nausea or vomiting, no abdominal pain and no diarrhea, no new symptoms. Patient white count is 9.6 creatinine 0.79 Objective - Vital Signs Vital signs: Vital Signs Temp 98.4 F 11/24/24 08:28 Pulse 66 11/24/24 11:30 Resp 18 11/24/24 11:30 BP 132/83 11/24/24 11:30 Pulse Ox 94 L 11/24/24 11:30 FiO2 Intake & Output 11/23/24 11/24/24 11/24/24 18:59 06:59 18:59 Intake Total 468.839 703.283 480 Balance 468.839 703.283 480 Weight 116 kg Intake: IV 170 Invasive Line 2 20 Intake, IV Titration 58.839 163.283 Amount Heparin Sod,Pork in 0.45% 58.839 163.283 NaCl 25,000 unit In 0.45 % NaCl 1 250ml.bag @ 8.57 UNITS/KG/HR 10.001 mls/ hr IV .Q24H [facility] Rx#: [id number] Oral 240 540 480 Other: Voiding Method Toilet Toilet Toilet # Voids 3 2 - Exam GENERAL DESCRIPTION: Middle-age male up in the chair in no distress RESPIRATORY SYSTEM: Unlabored breathing , decreased breath sounds at bases HEART: S1 S2 regular rate and rhythm , ABDOMEN: Soft , no tenderness EXTREMITIES: No edema feet - Labs CBC & Chem 7: 11/24/24 03:28 11/24/24 06:22 Labs: Abnormal Lab Results - Last 24 Hours (Table) 11/23/24 11/23/24 11/24/24 Range/Units 14:38 20:39 03: PT 18.0 H (10.0-12.5) sec INR 1.8 H (<1.2) APTT 33.7 H 30.9 H (22.0-30.0) sec Glucose (74-99) mg/dL 11/24/24 11/24/24 Range/Units 03:28 06:22 PT (10.0-12.5) sec INR (<1.2) APTT 40.8 H (22.0-30.0) sec Glucose 116 H (74-99) mg/dL Microbiology - Last 24 Hours (Table) 11/21/24 13:20 Blood Culture - Preliminary Blood Assessment and Plan (1) Lactic acidosis Current Visit: Yes Status: Acute Code(s): E87.20 - ACIDOSIS, UNSPECIFIED SNOMED Code(s): 44238496 Plan: 1patient presented to hospital mostly with dizziness and weakness questionable prereanl and the patient also have elevated lactic acid but no other features supporting diagnosis of sepsis especially with normal CRP 2-patient also complaining of some abdominal discomfort coupled with elevated lactic acid may benefit from repeat CT with oral contrast as initial CT was done without any contrast repeat CT did shows improving stool burden but did not show any acute process 3-patient remains to be afebrile, the patient did have a YOVANY that was negative for any vegetation blood culture have been negative, this was explained to the patient in layman terms and no need for antibiotic therapy at this point Dictation was produced using [employer] dictation software. please excuse any grammatical, word or spelling errors. Time with Patient: Less than 30
[2024-11-24] MEDS: WARFARIN 5 MG TAB PO ONE (17:17)
--- NOTE | 2024-11-25 06:36 | P.PN ---
Subjective Progress Note Date: 11/24/24 This is a pleasant 54-year-old who came in with weakness and generalized difficulty in ambulating with history of stroke in the past undergoing thorough neurological evaluation including MRI of the brain which was negative for acute stroke. Patient is being followed by cardiology scheduled to undergo YOVANY today and is maintained on IV heparin as well as Coumadin as patient is subtherapeutic. INR is 2.0 and cardiology following making adjustments to medications recommending continue on IV heparin. Patient did work with physical therapy and reports is at baseline and would not qualify for rehab. Patient is currently n.p.o. awaiting YOVANY and will await official report. 11/24/2024 Patient is seen in follow-up today with no acute overnight issues noted other than patient is reporting some right-sided jaw pain and difficulty opening his mouth. Patient is status post YOVANY and was intubated, possible cause of jaw pain. Will obtain an x-ray. Cardiology following and patient is maintained on IV heparin and INR is subtherapeutic at 1.8 hide cardiology strongly recommending continuing to be hospitalized until INR is 2.5 given history. Lovenox bridging is contraindicated per Dr. Eastman and will continue with Coumadin with pharmacy to dose. Neurology has cleared the patient once cleared by cardiology. Recommend PT/OT therapy daily. Review of systems: Constitutional: No reports of fatigue, fever, or chills Cardiovascular: No reports of chest pain or palpitations Respiratory: No reports of shortness of breath or cough GI: reports of nausea, no reports of of vomiting, : No reports of dysuria or retention Neurovascular: reports of generalized weakness, although appears to be at b aseline PHYSICAL EXAMINATION: GENERAL: The patient is alert and oriented x4, Well developed, well nourished. Obese HEENT: Pupils are round and equally reacting to light. EOMI. no scleral icterus. No conjunctival pallor. Normocephalic, atraumatic. No pharyngeal erythema. No thyromegaly. Jaw tenderness on the right and difficulty opening mouth completely, no obvious deformity noted CARDIOVASCULAR: S1 and S2 muffled PULMONARY: diminished breath sounds bilaterally with no wheezing or rhonchi noted. ABDOMEN: soft. Nontender on exam. obese. non-distended, normoactive bowel sounds. No palpable organomegaly. MUSCULOSKELETAL: No joint swelling or deformity. EXTREMITIES: No cyanosis, clubbing, or pedal edema. NEUROLOGICAL: Gross neurological examination did not reveal any focal deficits. Diffuse weakness SKIN: No rashes. Assessment: Right sided weakness and dizziness with possible left frontal lobe stroke versus acute TIA, MRI was negative for stroke Elevated lactic acid, ruled out sepsis Elevated triglycerides hypertriglyceridemia Jaw pain, possibly secondary to recent intubation for YOVANY, x-ray imaging was negative Subtherapeutic INR, currently 1.8 and per cardiology needs to be 2.5 before discharge Hypertension Hyperlipidemia History of CVA/TIA History of nonischemic cardiomyopathy, EF 40% and recovered at 55 to 60% History of depression Obesity with a BMI of 32.0 History of sleep apnea History of ascending unicuspid aortic valve with severe aortic valve regurgitat ion replacement status post mechanical aortic valve replacement and aortic root replacement GI prophylaxis DVT prophylaxis Full code Plan: Recommend to continue with current medications and management with cardiology and neurology following undergoing extensive workup. Patient is status post YOVANY with cardiology following recommending to Continue IV heparin with pharmacy to dose Coumadin and continue bridging until INR is at least 2.7-3 Discussed with cardiology regarding possible bridging with Lovenox although it is not indicated in someone with previous mechanical valve. Per cardiology patient is not to discharge until INR is 2.5 Infectious diseases following and patient is being monitored off antibiotics as patient does not appear septic or infectious at all. Follow-up on repeat labs in the a.m. Patient was reporting some right-sided jaw pain and difficulty opening mouth, will add some pain management and obtain imaging with no deformity noted. Likely something related to recent intubation for YOVANY Encouraged increase activity as tolerated with getting up out of the bed more o ften as patient is mostly laying in bed all day Patient was evaluated by physical therapy and will be going home on discharge The impression and plan of care has been dictated by Keli Edmonds, nurse practitioner as directed. Dr. Paul MD I have performed a history and examination and MDM of this patient, discussed the same with the dictator, and agree with the dictator's assessment and plan as written ,documented as a scribe. Based on total visit time, I have performed more than 50% of the visit. Any additional findings or plans will be noted. Objective - Vital Signs Vital signs: Vital Signs Temp 98.4 F 11/24/24 08:28 Pulse 66 11/24/24 11:30 Resp 18 11/24/24 11:30 BP 132/83 11/24/24 11:30 Pulse Ox 94 L 11/24/24 11:30 FiO2 Intake & Output 11/23/24 11/24/24 11/24/24 18:59 06:59 18:59 Intake Total 468.839 703.283 480 Balance 468.839 703.283 480 Weight 116 kg Intake: IV 170 Invasive Line 2 20 Intake, IV Titration 58.839 163.283 Amount Heparin Sod,Pork in 0.45% 58.839 163.283 NaCl 25,000 unit In 0.45 % NaCl 1 250ml.bag @ 8.57 UNITS/KG/HR 10.001 mls/ hr IV .Q24H [facility] Rx#: [id number] Oral 240 540 480 Other: Voiding Method Toilet Toilet Toilet # Voids 3 2 - Labs CBC & Chem 7: 11/24/24 03:28 11/24/24 06:22 Labs: Abnormal Lab Results - Last 24 Hours (Table) 11/23/24 11/23/24 11/24/24 Range/Units 14:38 20:39 03:28 PT 18.0 H (10.0-12.5) sec INR 1.8 H (<1.2) APTT 33.7 H 30.9 H (22.0-30.0) sec Glucose (74-99) mg/dL 11/24/24 11/24/24 Range/Units 03:28 06:22 PT (10.0-12.5) sec INR (<1.2) APTT 40.8 H (22.0-30.0) sec Glucose 116 H (74-99) mg/dL Microbiology - Last 24 Hours (Table) 11/21/24 13:20 Blood Culture - Preliminary Blood
[2024-11-25 07:13] LABS: Prothrombin Time 20.7 sec (10.0-12.5)
[2024-11-25 10:00] VITALS: BMI 32.1
--- NOTE | 2024-11-25 13:20 | P.PN ---
Subjective HISTORY OF PRESENT ILLNESS: This is a 54-year-old male with a past medical history significant for unicuspid aortic valve status post mechanical aortic valve replacement and aortic root replacement, hypertension, hyperlipidemia, CVA, and cardiomyopathy. Patient used to follow in the office with Dr. Eastman 2021 but now follows with Dr. Moran out of [place]. We have been asked to see the patient in consultation for history of aortic valve replacement. Patient examined at the bedside. Patient presented to the hospital with a chief complaint of headache and a stiff neck. The patient does have a history of right sided weakness from a previous CVA in 2021. However, he also reports worsening right sided weakness and is now requiring a cane for ambulation. Patient states that he gets his INR checked every 2 weeks on an outpatient basis. He states his last INR was noted to be 2.2. Patient states he has been compliant with his Coumadin. INR on admission was noted to be 1.8. Patient was started on Lovenox and continued on Coumadin. Repeat INR today is 2.4. DIAGNOSTICS: - EKG reveals sinus mechanism with no signs of acute ischemia. - Laboratory data: WBC 10.2. Hemoglobin 13.1. Platelet count 228. INR 2.4. Sodium 138. Potassium 3.3. BUN 16. Creatinine 0.78. - Current home cardiac medications include warfarin 5 mg Thursday and Thursday and 7.5 mg Thursday, rosuvastatin 5 mg daily, metoprolol succinate 25 mg twice a day, aspirin 81 mg daily. -YOVANY performed in May 2023 revealed mechanical aortic valve with normal function. There is 1.9 x 0.8 mm echodensity on the aortic side of the aortic valve consistent with possible vegetation versus artifact. Lumason was used which appeared to move through echodensity more consistent with artifact. Mitral valve appears to be normal with mild MR, tricuspid valve normal with trace TR, intra-atrial septum is intact. No evidence of PFO. Left atrial appendage has been ligated and is free of clot. EF 55%. Ascending aortic root graft appears patent without vegetation or echodensity. -Echocardiogram obtained this admission reveals ejection fraction 55 to 60%, negative bubble study, normally functioning mechanical aortic valve with peak gradient 20 mmHg mean gradient 12 mmHg, no perivalvular aortic regurgitation. - Cardiac catheterization history: December 2020 revealing normal coronary arteries 11/23/2024 Patient examined this morning at the bedside. Patient currently denies chest pain or pressure. He denies shortness of breath. He continues to have right sided weakness. INR today 1.9. Patient is maintained on Coumadin. He is scheduled to undergo YOVANY today with Dr. Melvin. 11/24/2024 Patient examined this morning at the bedside. He underwent YOVANY yesterday with no evidence of thrombus or vegetation. Patient currently denies chest pain or pressure. He denies shortness of breath. INR today 1.8. He remains on Coumadin and IV Heparin. 11/25/2024 Patient examined this morning at the bedside. Denies chest pain or SOB. Vitals stable. INR 2.0. Remains on IV heparin. PHYSICAL EXAM: VITAL SIGNS: Reviewed. GENERAL: Well-developed in no acute distress. HEENT: Head is normocephalic. Pupils are equal, round. Sclerae anicteric. Mucous membranes of the mouth are moist. Neck supple. No JVD or thyromegaly LUNGS: Respirations even and unlabored. Lungs essentially clear to auscultation bilaterally. HEART: Regular rate and rhythm. S1 and S2 heard. Mechanical click noted. ABDOMEN: Soft. Nondistended. Nontender. EXTREMITIES: Normal range of motion. No clubbing or cyanosis. Peripheral pulses intact. No lower extremity edema NEUROLOGIC: Awake and alert. Oriented x 3. ASSESSMENT: Headache, neck pain, and worsening right sided weakness, CT with possible signs of left parietal acute ischemia., MRI of the brain negative for CVA Subtherapeutic INR History of unicuspid aortic valve with severe aortic valve regurgitation, status post On-X mechanical aortic valve replacement, 2020 Moderate aortic root and ascending dilation, status post ascending aortic replacement with 32 mm Gelweave straight graft, 2020 Normal coronary arteries, per cath in 2020 Hypertension Hyperlipidemia History of CVA with residual right-sided weakness, 2021 History of nonischemic cardiomyopathy, EF 40%, with recovered EF now 55 to 60% PLAN: Continue current cardiac medications Continue Coumadin. Patient with On-X with usually can have lower INR due to lower profile valve. However, Recommend patient keep his INR between 2.53 due to hx of CVA and continued neurologic symptoms. Continue IV heparin as INR today is 2.0 No bridging with Lovenox due to mechanical valve Patient can be discharged home once INR is 2.5 No further inpatient recommendations from a cardiac standpoint We will sign off. Please reconsult if needed. Nurse practitioner note has been reviewed by physician. Signing provider agrees with the documented findings, assessment, and plan of care documented by [employer] MANAGER as a scribe. Objective - Vital Signs Vital signs: Vital Signs Temp 98.2 F 11/25/24 11:00 Pulse 69 11/25/24 11:00 Resp 16 11/25/24 11:00 BP 146/82 11/25/24 11:00 Pulse Ox 97 11/25/24 11:00 FiO2 Intake & Output 11/24/24 11/25/24 11/25/24 18:59 06:59 18:59 Intake Total 1270 446.132 Output Total 3 Balance 1270 -3 446.132 Weight 116.6 kg 116.6 kg Intake: Intake, IV Titration 250 206.132 Amount Heparin Sod,Pork in 0.45% 250 206.132 NaCl 25,000 unit In 0.45 % NaCl 1 250ml.bag @ 8.57 UNITS/KG/HR 10.001 mls/ hr IV .Q24H [facility] Rx#: [id number] Oral 1020 240 Output: Urine 3 Other: Voiding Method Toilet Toilet Toilet # Voids 3 - Labs CBC & Chem 7: 11/24/24 03:28 11/24/24 06:22 Labs: Abnormal Lab Results - Last 24 Hours (Table) 11/25/24 11/25/24 Range/Units 06:26 07:59 PT 20.7 H (10.0-12.5) sec INR 2.0 H (<1.2) APTT 39.5 H (22.0-30.0) sec Microbiology - Last 24 Hours (Table) 11/21/24 13:20 Blood Culture - Preliminary Blood
--- NOTE | 2024-11-25 15:03 | P.PN ---
Subjective Progress Note Date: 11/25/24 Principal diagnosis: Reason for follow-up is lactic acidosis and question of sepsis Patient is a 54-year-old male with a past medical history negative for heart failure with CVA TIA hypertension hyperlipidemia presenting to the hospital for evaluation of dizziness room spinning unable to drive did have elevated lactic acid probably this consultation On today's evaluation that is 11/25/2024, the patient continues to be afebrile, the patient is on room air and breathing comfortably, the Pt denies having any chest pain or cough, the patient denies having any abdominal pain no vomiting or any diarrhea mention feeling better. INR is 2.0 white count normal blood culture negative Objective - Vital Signs Vital signs: Vital Signs Temp 98.2 F 11/25/24 11:00 Pulse 69 11/25/24 11:00 Resp 16 11/25/24 11:00 BP 146/82 11/25/24 11:00 Pulse Ox 97 11/25/24 11:00 FiO2 Intake & Output 11/24/24 11/25/24 11/25/24 18:59 06:59 18:59 Intake Total 1270 446.132 Output Total 3 Balance 1270 -3 446.132 Weight 116.6 kg 116.6 kg Intake: Intake, IV Titration 250 206.132 Amount Heparin Sod,Pork in 0.45% 250 206.132 NaCl 25,000 unit In 0.45 % NaCl 1 250ml.bag @ 8.57 UNITS/KG/HR 10.001 mls/ hr IV .Q24H [facility] Rx#: [id number] Oral 1020 240 Output: Urine 3 Other: Voiding Method Toilet Toilet Toilet # Voids 3 - Exam GENERAL DESCRIPTION: Middle-age male up in the chair in no distress RESPIRATORY SYSTEM: Unlabored breathing , decreased breath sounds at bases HEART: S1 S2 regular rate and rhythm , ABDOMEN: Soft , no tenderness EXTREMITIES: No edema feet - Labs CBC & Chem 7: 11/24/24 03:28 11/24/24 06:22 Labs: Abnormal Lab Results - Last 24 Hours (Table) 11/25/24 11/25/24 Range/Units 06:26 07:59 PT 20.7 H (10.0-12.5) sec INR 2.0 H (<1.2) APTT 39.5 H (22.0-30.0) sec Microbiology - Last 24 Hours (Table) 11/21/24 13:20 Blood Culture - Preliminary Blood Assessment and Plan (1) Lactic acidosis Current Visit: Yes Status: Acute Code(s): E87.20 - ACIDOSIS, UNSPECIFIED SNOMED Code(s): 12221086 Plan: 1patient presented to hospital mostly with dizziness and weakness questionable prereanl and the patient also have elevated lactic acid but no other features supporting diagnosis of sepsis especially with normal CRP 2-patient also complaining of some abdominal discomfort coupled with elevated lactic acid may benefit from repeat CT with oral contrast as initial CT was done without any contrast repeat CT did shows improving stool burden but did not show any acute process 3-patient remains to be afebrile, the patient did have a YOVANY that was negative for any vegetation blood culture have been negative 4patient did have overall improvement in symptoms without antibiotic therapy hence recommended no antibiotic on discharge Dictation was produced using [email or web address] dictation software. please excuse any grammatical, word or spelling errors. Time with Patient: Less than 30
[2024-11-25] MEDS: WARFARIN 7.5 MG TAB PO ONE (17:05)
[2024-11-25] MEDS: WARFARIN 5 MG TAB PO ONE (20:40)
[2024-11-26 07:25] LABS: INR 2.5 (<1.2); Partial Thromboplastin Time 42.6 sec (22.0-30.0); Prothrombin Time 24.7 sec (10.0-12.5)
[2024-11-26 07:33] LABS: Basophils # (A) 0.1 k/uL (0-0.2); Basophils % (A) 1 %; Eosinophils # (A) 0.2 k/uL (0-0.7); Eosinophils % (A) 2 %; HCT 41.8 % (39.0-53.0); Lymphocytes # (A) 2.4 k/uL (1.0-4.8); Lymphocytes % (A) 24 %; MCH 28.3 pg (25.0-35.0); MCHC 33.4 g/dL (31.0-37.0); MCV 84.7 fL (80.0-100.0); Mean Platelet Volume 7.3; Monocytes # (A) 0.5 k/uL (0-1.0); Monocytes % (A) 5 %; Neutrophils # (A) 6.6 k/uL (1.3-7.7); Neutrophils % (A) 67 %; Platelet Count 229 k/uL (150-450); RBC 4.94 m/uL (4.30-5.90); RDW 13.8 % (11.5-15.5); WBC 9.9 k/uL (3.8-10.6)
[2024-11-26 07:46] LABS: African American GFR (CKD) >90 (>60 ml/min/1.73 sqM); Anion Gap 8 mmol/L; Blood Urea Nitrogen 16 mg/dL (9-20); Calcium 9.1 mg/dL (8.4-10.2); Carbon Dioxide 25 mmol/L (22-30); Chloride 104 mmol/L (98-107); Glucose 105 mg/dL (74-99); Non-African American GFR(CKD) >90 (>60 ml/min/1.73 sqM); Potassium 4.4 mmol/L (3.5-5.1); Sodium 137 mmol/L (137-145)
--- NOTE | 2024-11-26 07:48 | P.PN ---
Subjective Progress Note Date: 11/25/24 This is a pleasant 54-year-old who came in with weakness and generalized difficulty in ambulating with history of stroke in the past undergoing thorough neurological evaluation including MRI of the brain which was negative for acute stroke. Patient is being followed by cardiology scheduled to undergo YOVANY today and is maintained on IV heparin as well as Coumadin as patient is subtherapeutic. INR is 2.0 and cardiology following making adjustments to medications recommending continue on IV heparin. Patient did work with physical therapy and reports is at baseline and would not qualify for rehab. Patient is currently n.p.o. awaiting YOVANY and will await official report. 11/24/2024 Patient is seen in follow-up today with no acute overnight issues noted other than patient is reporting some right-sided jaw pain and difficulty opening his mouth. Patient is status post YOVANY and was intubated, possible cause of jaw pain. Will obtain an x-ray. Cardiology following and patient is maintained on IV heparin and INR is subtherapeutic at 1.8 hide cardiology strongly recommending continuing to be hospitalized until INR is 2.5 given history. Lovenox bridging is contraindicated per Dr. Eastman and will continue with Coumadin with pharmacy to dose. Neurology has cleared the patient once cleared by cardiology. Recommend PT/OT therapy daily. 11/25/2024 Patient is seen in follow-up today doing relatively well asking when he can go home. INR is 2.0 and maintained on heparin along with Coumadin with pharmacy to dose. Will adjust and give an additional dose of 5 mg Coumadin including the already scheduled 7.5 per pharmacy. Patient is afebrile with no reports of chest pain or shortness of breath. Patient reports has been up and walking multiple times. Patient would like to go home. Awaiting cardiology clearance at this time. Patient has also been instructed to follow-up with his primary county engineer in [place] Dr. Rogers regarding his INR monitoring. Review of systems: Constitutional: No reports of fatigue, fever, or chills Cardiovascular: No reports of chest pain or palpitations Respiratory: No reports of shortness of breath or cough GI: reports of nausea, no reports of of vomiting : No reports of dysuria or retention Neurovascular: reports of generalized weakness, and reports to feeling at baseline PHYSICAL EXAMINATION: GENERAL: The patient is alert and oriented x4, Well developed, well nourished. Obese HEENT: Pupils are round and equally reacting to light. EOMI. no scleral icterus. No conjunctival pallor. Normocephalic, atraumatic. No pharyngeal erythema. No thyromegaly. Jaw tenderness on the right has improved and able to open mouth , no obvious deformity noted CARDIOVASCULAR: S1 and S2 muffled PULMONARY: diminished breath sounds bilaterally with no wheezing or rhonchi noted. ABDOMEN: soft. Nontender on exam. obese. non-distended, normoactive bowel sounds. No palpable organomegaly. MUSCULOSKELETAL: No joint swelling or deformity. EXTREMITIES: No cyanosis, clubbing, or pedal edema. NEUROLOGICAL: Gross neurological examination did not reveal any focal deficits. Diffuse weakness SKIN: No rashes. Assessment: Right sided weakness and dizziness with possible left frontal lobe stroke versus acute TIA, MRI was negative for stroke Elevated lactic acid, ruled out sepsis hypertriglyceridemia Jaw pain, most likely secondary to recent intubation for YOVANY, x-ray imaging was negative, improved Subtherapeutic INR, currently 2.0 and per cardiology needs to be 2.5 before discharge Hypertension Hyperlipidemia History of CVA/TIA History of nonischemic cardiomyopathy, EF 40% and recovered at 55 to 60% History of depression Obesity with a BMI of 32.0 History of sleep apnea History of ascending unicuspid aortic valve with severe aortic valve regurgitation replacement status post mechanical aortic valve replacement and aortic root replacement GI prophylaxis DVT prophylaxis Full code Plan: Recommend to continue with current medications and management with cardiology and neurology following undergoing extensive workup. Patient is status post YOVANY with cardiology following recommending to Continue IV heparin with pharmacy to dose Coumadin and continue bridging until INR is at least 2.7-3 Discussed with cardiology regarding possible bridging with Lovenox although it is not indicated in someone with previous mechanical valve. Per cardiology patient is not to discharge until INR is 2.5 Infectious diseases following and patient is being monitored off antibiotics as patient does not appear septic or infectious at all. Follow-up on repeat labs in the a.m. Patient was reporting some right-sided jaw pain and difficulty opening mouth, continue pain medications. Imaging was negative likely something related to recent intubation for YOVANY. Pain has improved per patient report Encouraged increase activity as tolerated with getting up out of the bed more often as patient is mostly laying in bed all day Patient was evaluated by physical therapy and will be going home on discharge Awaiting INR level to be at least 2.5-3 per cardiology prior to discharge. Patient will continue on IV heparin along with Coumadin with pharmacy to dose. Patient was scheduled for 7.5 mg of warfarin today and will give an additional 5 mg. Await repeat labs in AM. Patient to contact his primary county engineer in [place] to arrange for INR testing outpatient The impression and plan of care has been dictated by Keli Edmonds, nurse practitioner as directed. Dr. Paul MD I have performed a history and examination and MDM of this patient, discussed the same with the dictator, and agree with the dictator's assessment and plan as written ,documented as a scribe. Based on total visit time, I have performed more than 50% of the visit. Any additional findings or plans will be noted. Objective - Vital Signs Vital signs: Vital Signs Temp 98.6 F 11/25/24 08:49 Pulse 76 11/25/24 08:49 Resp 16 11/25/24 08:49 BP 153/80 11/25/24 08:49 Pulse Ox 97 11/25/24 08:49 FiO2 Intake & Output 11/24/24 11/25/24 11/25/24 18:59 06:59 18:59 Intake Total 1270 446.132 Output Total 3 Balance 1270 -3 446.132 Weight 116.6 kg 116.6 kg Intake: Intake, IV Titration 250 206.132 Amount Heparin Sod,Pork in 0.45% 250 206.132 NaCl 25,000 unit In 0.45 % NaCl 1 250ml.bag @ 8.57 UNITS/KG/HR 10.001 mls/ hr IV .Q24H [facility] Rx#: [id number] Oral 1020 240 Output: Urine 3 Other: Voiding Method Toilet Toilet Toilet # Voids 3 - Labs CBC & Chem 7: 11/26/24 06:57 11/24/24 06:22 Labs: Abnormal Lab Results - Last 24 Hours (Table) 11/25/24 11/25/24 Range/Units 06:26 07:59 PT 20.7 H (10.0-12.5) sec INR 2.0 H (<1.2) APTT 39.5 H (22.0-30.0) sec Microbiology - Last 24 Hours (Table) 11/21/24 13:20 Blood Culture - Preliminary Blood
--- NOTE | 2024-11-26 09:31 | P.PN ---
Subjective Progress Note Date: 11/25/24 11/25/2024: Patient was seen for follow-up. Patient is sitting comfortably in the chair. Patient is awaiting INR to be therapeutic. The dose of warfarin has been increased. Today the INR is 2.0. No new concerns. 11/23/2024: Patient was seen for follow-up. Patient is doing better. Patient is currently on heparin because INR is subtherapeutic. Patient had undergone YOVANY today. No new concerns. 11/22/2024: Patient was seen for a follow-up. Patient had an episode of dizziness, lasting for about 3 to 4 minutes. Patient is sitting comfortably in the recliner. He believes his right side is still slightly weak although getting better. No new concerns. 11/21/2024: Patient initially seen by Dr. Gardner. Please refer to her note for details. Patient is a 54-year-old male with history of left temporal infarct, comes with "dizziness". 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 It lasted for about 10 minutes. He came back home. And had another episode that lasted for 5 minutes, but then noticed that his right side was weaker. Patient has new worsening of his pre-existing right-aileen ed weakness. CT scan suspicious for new left parietal infarct. I reviewed CT head, and do not appear to have any new ischemia. MRI was ordered. Patient and his are present. Patient states he had a stroke on 11/15/2021, which affected his speech and swallow. About 3 weeks later, he had a second stroke, which affected his right side of the body. He required 6 months of therapy. He has some residual weakness of the right arm and right leg. 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 He was placed on IV antibiotics for 6 weeks. Patient states that his right side has got weaker since this current event. He believes that he cannot walk, requires a cane. He is also noticing tremulousness and shakiness of the right arm and hand. Vital signs on arrival blood pressure 166/76, pulse of 84 temperature 98.4. Blood test shows normal CBC, INR 1.8, PTT normal, basic metabolic panel normal. Hepatic panel normal, troponin negative. UA negative. Lactate 2.5. Hemoglobin A1c 5.6. EKG showed sinus rhythm with first-degree AV block. CT head revealed area of cohen-white matter loss of differentiation in the left parietal lobe, concerning for acute CVA. Remote injury to the left temporal lobe with e ncephalomalacia. I personally reviewed CT head, does not appear anything acute clearly. Agree with area of encephalomalacia. CT of abdomen pelvis showed no evidence for acute abdominal process. Hepatic steatosis. Cholelithiasis, large stool burden in the colon. Home medications include warfarin, aspirin 81 mg, losartan/HCTZ, Lexapro 20 mg, fish oil, Protonix 40 mg, Crestor 5 mg, multivitamin, and metoprolol. Patient's INR is 2.4. CRP less than 0.5. Free T4 normal. TSH is slightly low 0.296. Patient denies any tobacco use, no alcohol. Objective - Vital Signs Vital signs: Vital Signs Temp 97.7 F 11/26/24 04:00 Pulse 75 11/26/24 04:00 Resp 16 11/26/24 04:00 BP 128/77 11/26/24 04:00 Pulse Ox 97 11/26/24 04:00 FiO2 Intake & Output 11/25/24 11/26/24 11/26/24 18:59 06:59 18:59 Intake Total 806.132 820.443 Balance 806.132 820.443 Weight 116.6 kg 117.3 kg Intake: Intake, IV Titration 206.132 240.443 Amount Heparin Sod,Pork in 0.45% 206.132 240.443 NaCl 25,000 unit In 0.45 % NaCl 1 250ml.bag @ 8.57 UNITS/KG/HR 10.001 mls/ hr IV .Q24H ON LICENSE OF [facility] Rx#: [id number] Oral 600 580 Other: Voiding Method Toilet # Voids 1 2 - Exam On examination patient's mental status, cranial nerves are normal. Visual gupta are full. Face has mild right flattening of the right nasolabial fold. On muscle strength testing, patient has right pronator drift about 30 degree. The strength is normal in the left arm and left leg. On the right side, deltoid 5-with giveaway weakness due to pain, normal biceps and triceps, net developer is 4+5-. Ankle dorsiflexion 5-, hip flexion 5-. Sensory to touch is equal. - Labs CBC & Chem 7: 11/26/24 06:57 11/26/24 06:57 Labs: Abnormal Lab Results - Last 24 Hours (Table) 11/26/24 11/26/24 Range/Units 06:57 06:57 PT 24.7 H (10.0-12.5) sec INR 2.5 H (<1.2) APTT 42.6 H (22.0-30.0) sec Glucose 105 H (74-99) mg/dL Assessment and Plan Assessment: 1. The patient is a 54-year-old male with a history of previous stroke involving the left temporal region. He presents to the emergency department with dizziness, blurred vision and right-sided weakness. CT scan of the brain reported signs of possible left parietal acute ischemia. The patient's neurological examination is consistent with this. However MRI of the brain revealed no evidence of acute stroke. 2. Subtherapeutic INR 3. History of mechanical aortic valve replacement, due to bacterial endoca rditis. 4. History of hypertension 5. History of hyperlipidemia 6. History of CVA 11/15/2021, with residual right-sided weakness. Plan: Patient's strength of the right side of the body is back to baseline. MRI of the brain without contrast just completed. On my review revealed no evidence of acute ischemic stroke. Reveals evidence of old left temporal/i nsular encephalomalacia. Also revealed evidence of some small vessel disease. Radiology report agreeing with no acute stroke. 2D echo revealed normal LV size and systolic function. LVEF 55 to 60%. Moderately increased septal wall thickness. Mild right atrial dilation. Negative agitated saline bubble study for [id number] shunt. Aortic valve not well-visualized. Otherwise prosthetic aortic valve appears to be functioning normally with a peak gradient of 20 mmHg. No paravalvular aortic regurgitation. No central aortic regurgitation. Transesophageal echocardiography performed today: 1. Mildly dilated left atrium with evidence of closure of the left atrial appendage and no evidence of flow by color study 2. Normal left ventricular size and systolic function 3. Prosthetic aortic valve, On-x with normal appearance with trace to mild perivalvular aortic regurgitation. 4. Mild to moderate multiple jets mitral regurgitation 5. No shunting across the interatrial septum 6. Normal appearance of the descending thoracic aorta We will defer to cardiology regarding mild to moderate multiple jets MR. CTA head and neck showed: No evidence of dissection of the cervical internal carotid arteries or vertebral arteries. No evidence of significant stenosis at the carotid bifurcation. No evidence of intracranial high-grade stenosis or intracranial aneurysm. Fasting a.m. lipid panel cholesterol 168, LDL 84, HDL 32 and triglycerides 633. Patient on Crestor 5 mg at home. Would recommend increasing to at least 10 mg. Target LDL <70. Recommend medical treatment for hypertriglyceridemia. Hemoglobin A1c 5.6 Optimize control of blood pressure. Continue warfarin. Keep INR at therapeutic range, as recommended by the cardiology to be maintained between 2.5-3.0. Today INR is 2.0. Patient also on aspirin 81 mg, which will be continued. Patient on heparin drip for bridging before INR becomes therapeutic. Neuro checks every 4 hours B12 314, folate 13.10 we will start oral B12 replacement for borderline B12 level.. EEG was normal during wakefulness, drowsiness and stage II sleep. No focal, lateralized or epileptiform activity was seen. Telemetry monitoring rule out any arrhythmia PT, OT, speech therapy DVT prophylaxis: Patient on warfarin. Patient clear from neurology point, when cleared by cardiology Neurology will sign off. Please reconsult if any other concerns.
[2024-11-26 10:40] LABS: Glucose,Whole Blood 79 mg/dL (70-110)
[2024-11-26] MEDS: WARFARIN 7.5 MG TAB PO ONE (11:30)
--- NOTE | 2024-11-26 11:51 | XR ---
EXAMINATION TYPE: XR chest 1V DATE OF EXAM: 11/26/2024 CLINICAL INDICATION: Male, 54 years old with history of unk, progress study. CHF TECHNIQUE: Single AP portable upright view of the chest is obtained. COMPARISON: Chest CT from 4 days earlier FINDINGS: Overlying sternal wires are redemonstrated. Surgical changes at the aortic valve and left atrial appendage clip are better seen on CT versus x-ray. Some new increased interstitial markings in the left lung. No pleural effusion or pneumothorax seen bilaterally. Cardiac silhouette size remains upper limits of normal. IMPRESSION: New mild left-sided interstitial edema felt present. [facility], , 11/26/2024 11:48 AM
--- NOTE | 2024-11-26 12:15 | XR ---
EXAMINATION TYPE: XR mandible complete DATE OF EXAM: 11/26/2024 12:06 PM COMPARISON: Prior mandible x-ray 2 days earlier. CLINICAL INDICATION: Male, 54 years old with history of TMJ disfunction/ R.O partial dislocation; [facility] TECHNIQUE: : XR mandible complete views of the mandible were obtained. FINDINGS: The mandible is intact. Dental work redemonstrated bilaterally. No obvious acute displaced fracture o f the mandible. Temporomandibular joints are likely satisfactory in position. Overlying soft tissue i s unremarkable. IMPRESSION: As above. No significant change from most recent study. [facility], , 11/26/2024 12:13 PM
[2024-11-26 12:29] LABS: Influenza A Not Detected (Not Detectd); Influenza B Not Detected (Not Detectd); RSV Not Detected (Not Detectd)
[2024-11-26 12:30] LABS: Appearance,Urine Clear (Clear); Bilirubin,Urine Negative (Negative); Blood,Urine Trace (Negative); Color,Urine Yellow; Glucose,Urine (UA) Negative (Negative); Ketones,Urine Negative (Negative); Leukocyte Esterase,Urine Negative (Negative); Mucus,Urine Occasional /hpf; Nitrite,Urine Negative (Negative); RBC,Urine 3 /hpf (0-5); Specific Gravity,Urine 1.022 (1.001-1.035); Urobilinogen,Urine <2.0 mg/dL (<2.0); WBC,Urine 2 /hpf (0-5)
[2024-11-26 12:32] LABS: Protein,Urine 1+ (Negative)
--- NOTE | 2024-11-26 15:02 | P.PN ---
Subjective Progress Note Date: 11/26/24 Principal diagnosis: Reason for follow-up is lactic acidosis and question of sepsis Patient is a 54-year-old male with a past medical history negative for heart failure with CVA TIA hypertension hyperlipidemia presenting to the hospital for evaluation of dizziness room spinning unable to drive did have elevated lactic acid probably this consultation On today's evaluation that is 11/26/2024, patient did not have any fever and seem to be breathing comfortably on room air in no distress patient was sleepy did not answer any question no vomiting diarrhea or any other changes reported. Patient white count is 9.8, creatinine is 0.81 INR is 2.5 influenza RSV COVID testing negative UA is negative Objective - Vital Signs Vital signs: Vital Signs Temp 98.4 F 11/26/24 11:20 Pulse 68 11/26/24 11:20 Resp 18 11/26/24 11:20 BP 137/83 11/26/24 11:20 Pulse Ox 97 11/26/24 11:20 FiO2 Intake & Output 11/25/24 11/26/24 11/26/24 18:59 06:59 18:59 Intake Total 806.132 820.443 480 Balance 806.132 820.443 480 Weight 116.6 kg 117.3 kg Intake: Intake, IV Titration 206.132 240.443 Amount Heparin Sod,Pork in 0.45% 206.132 240.443 NaCl 25,000 unit In 0.45 % NaCl 1 250ml.bag @ 8.57 UNITS/KG/HR 10.001 mls/ hr IV .Q24H [facility] Rx#: [id number] Oral 600 580 480 Other: Voiding Method Toilet Toilet # Voids 1 2 - Labs CBC & Chem 7: 11/26/24 06:57 11/26/24 06:57 Labs: Abnormal Lab Results - Last 24 Hours (Table) 11/26/24 11/26/24 11/26/24 Range/Units 06:57 06:57 11:50 PT 24.7 H (10.0-12.5) sec INR 2.5 H (<1.2) APTT 42.6 H (22.0-30.0) sec Glucose 105 H (74-99) mg/dL Urine Protein 1+ H (Negative) Urine Blood Trace H (Negative) Urine Mucus Occasional H (None) /hpf Assessment and Plan (1) Lactic acidosis Current Visit: Yes Status: Acute Code(s): E87.20 - ACIDOSIS, UNSPECIFIED SNOMED Code(s): 39044265 Plan: 1patient presented to hospital mostly with dizziness and weakness questionable prereanl and the patient also have elevated lactic acid but no other features supporting diagnosis of sepsis especially with normal CRP 2-patient also complaining of some abdominal discomfort coupled with elevated lactic acid may benefit from repeat CT with oral contrast as initial CT was done without any contrast repeat CT did shows improving stool burden but did not show any acute process 3-patient remains to be afebrile, the patient did have a YOVANY that was negative for any vegetation blood culture have been negative 4patient white count has been normal, influenza RSV COVID testing has been negative no need for any systemic antibiotic therapy at this point Dictation was produced using [employer] dictation software. please excuse any grammatical, word or spelling errors. Time with Patient: Less than 30
--- NOTE | 2024-11-26 20:12 | PN ---
PROGRESS NOTE DATE OF SERVICE: 11/24/2024 SUBJECTIVE: This 54-year-old gentleman admitted with possible stroke, he had a previous frontal lesion also. The patient also had some abnormal movements of possible seizures. Neurology is following the patient closely. The patient also had difficulty in opening the jaw for the YOVANY. No dislocation is visible in the mandible x-ray. PAST MEDICAL HISTORY: Reviewed. REVIEW OF SYSTEMS: Fourteen-point review of systems negative except as mentioned earlier. CURRENT MEDICATIONS: Reviewed. PHYSICAL EXAMINATION: VITAL SIGNS: Pulse is 68, blood pressure 137/83. CHEST: He has few scattered rhonchi. ABDOMEN: Soft. NERVOUS SYSTEM: Mild diffuse weakness on the right side. LABORATORY DATA: Reviewed. ASSESSMENT: 1. Right-sided weakness and dizziness, possible acute stroke versus transient ischemic attack. 2. Hold left frontal stroke. 3. Difficulty in opening the jaw, possible mandibular subluxation. 4. Abnormal movements, possible seizure. 5. Hypertension. 6. Hyperlipidemia. 7. Multiple complex medical issues. RECOMMENDATIONS: I recommend to continue current management, repeat labs. Neurology consultation. I would also recommend surgical evaluation. Pain management. Symptomatic treatment. Antiplatelet agents. Guarded prognosis because of multiple complex medical issues. Further recommendations to follow. MMODL / IJN: [id number] /
[2024-11-26] MEDS: WARFARIN 5 MG TAB PO SCH (21:26)
[2024-11-27 00:14] VITALS: TEMP 98.1
[2024-11-27 07:34] LABS: Basophils # (A) 0.1 k/uL (0-0.2); Basophils % (A) 1 %; Eosinophils # (A) 0.2 k/uL (0-0.7); Eosinophils % (A) 2 %; HGB 14.7 gm/dL (13.0-17.5); Lymphocytes % (A) 20 %; MCH 29.1 pg (25.0-35.0); MCHC 34.2 g/dL (31.0-37.0); MCV 85.2 fL (80.0-100.0); Mean Platelet Volume 7.2; Monocytes # (A) 0.6 k/uL (0-1.0); Monocytes % (A) 6 %; Neutrophils # (A) 7.1 k/uL (1.3-7.7); Neutrophils % (A) 71 %; Platelet Count 234 k/uL (150-450); RBC 5.05 m/uL (4.30-5.90); RDW 13.8 % (11.5-15.5); WBC 10.1 k/uL (3.8-10.6)
[2024-11-27 07:48] LABS: African American GFR (CKD) >90 (>60 ml/min/1.73 sqM); Anion Gap 7 mmol/L; Blood Urea Nitrogen 15 mg/dL (9-20); Calcium 9.3 mg/dL (8.4-10.2); Carbon Dioxide 25 mmol/L (22-30); Chloride 106 mmol/L (98-107); Glucose 114 mg/dL (74-99); Non-African American GFR(CKD) >90 (>60 ml/min/1.73 sqM); Potassium 4.1 mmol/L (3.5-5.1); Sodium 138 mmol/L (137-145)
--- NOTE | 2024-11-27 08:53 | P.PN ---
Subjective Progress Note Date: 11/26/24 11/26/2024: Neurology was reconsulted because of some episode of shaking. I was informed at 10:58 AM the patient had just an episode of tremors of bilateral arms and legs, he was awake and alert and tremors lasted about 5 minutes, maybe more. Blood glucose was 79, blood pressure 146/82, temperature 98.4. Patient apparently has been trending higher blood sugars in the hospital, and 79 may be relatively lower for him. Patient states that he had gone to the bathroom and started shaking, it lasted for an hour. He was "out of it". He denies any history of anxiety. No cough, no chest pain. At present he is sitting comfortably in his recliner. No tremors. 11/25/2024: Patient was seen for follow-up. Patient is sitting comfortably in the chair. Patient is awaiting INR to be therapeutic. The dose of warfarin has been increased. Today the INR is 2.0. No new concerns. 11/23/2024: Patient was seen for follow-up. Patient is doing better. Patient is currently on heparin because INR is subtherapeutic. Patient had undergone YOVANY today. No new concerns. 11/22/2024: Patient was seen for a follow-up. Patient had an episode of dizziness, lasting for about 3 to 4 minutes. Patient is sitting comfortably in the recliner. He believes his right side is still slightly weak although getting better. No new concerns. 11/21/2024: Patient initially seen by Dr. Gardner. Please refer to her note for details. Patient is a 54-year-old male with history of left temporal infarct, comes with "dizziness". He had first episodes of dizziness while he was driving, has to picker/puller. It lasted for about 10 minutes. He came back home. And had another episode that lasted for 5 minutes, but then noticed that his right side was weaker. Patient has new worsening of his pre-existing right- sided weakness. CT scan suspicious for new left parietal infarct. I reviewed CT head, and do not appear to have any new ischemia. MRI was ordered. Patient and his are present. Patient states he had a stroke on 11/15/2021, which affected his speech and swallow. About 3 weeks later, he had a second stroke, which affected his right side of the body. He required 6 months of therapy. He has some residual weakness of the right arm and right leg. 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 He was placed on IV antibiotics for 6 weeks. Patient states that his right side has got weaker since this current event. He believes that he cannot walk, requires a cane. He is also noticing tremulousness and shakiness of the right arm and hand. Vital signs on arrival blood pressure 166/76, pulse of 84 temperature 98.4. Blood test shows normal CBC, INR 1.8, PTT normal, basic metabolic panel normal. Hepatic panel normal, troponin negative. UA negative. Lactate 2.5. Hemoglobin A1c 5.6. EKG showed sinus rhythm with first-degree AV block. CT head revealed area of cohen-white matter loss of differentiation in the left parietal lobe, concerning for acute CVA. Remote injury to the left temporal lobe with encephalomalacia. I personally reviewed CT head, does not appear anything acute clearly. Agree with area of encephalomalacia. CT of abdomen pelvis showed no evidence for acute abdominal process. Hepatic steatosis. Cholelithiasis, large stool burden in the colon. Home medications include warfarin, aspirin 81 mg, losartan/HCTZ, Lexapro 20 mg, fish oil, Protonix 40 mg, Crestor 5 mg, multivitamin, and metoprolol. Patient's INR is 2.4. CRP less than 0.5. Free T4 normal. TSH is slightly low 0.296. Patient denies any tobacco use, no alcohol. Objective - Vital Signs Vital signs: Vital Signs Temp 98.4 F 11/26/24 11:20 Pulse 68 11/26/24 16:00 Resp 17 11/26/24 16:00 BP 151/81 11/26/24 16:00 Pulse Ox 96 11/26/24 16:00 FiO2 Intake & Output 11/25/24 11/26/24 11/26/24 18:59 06:59 18:59 Intake Total 806.132 820.443 480 Balance 806.132 820.443 480 Weight 116.6 kg 117.3 kg Intake: Intake, IV Titration 206.132 240.443 Amount Heparin Sod,Pork in 0.45% 206.132 240.443 NaCl 25,000 unit In 0.45 % NaCl 1 250ml.bag @ 8.57 UNITS/KG/HR 10.001 mls/ hr IV .Q24H [facility] Rx#: [id number] Oral 600 580 480 Other: Voiding Method Toilet Toilet # Voids 1 2 - Exam On examination patient's mental status, cranial nerves are normal. Visual gupta are full. Face has mild right flattening of the right nasolabial fold. On muscle strength testing, patient has right pronator drift about 30 degree. The strength is normal in the left arm and left leg. On the right side, deltoid 5-with giveaway weakness due to pain, normal biceps and triceps, machine erector is 4+5-. Ankle dorsiflexion 5-, hip flexion 5-. Sensory to touch is equal. - Labs CBC & Chem 7: 11/27/24 07:09 11/27/24 07:09 Labs: Abnormal Lab Results - Last 24 Hours (Table) 11/26/24 11/26/24 11/26/24 Range/Units 06:57 06:57 11:50 PT 24.7 H (10.0-12.5) sec INR 2.5 H (<1.2) APTT 42.6 H (22.0-30.0) sec Glucose 105 H (74-99) mg/dL Urine Protein 1+ H (Negative) Urine Blood Trace H (Negative) Urine Mucus Occasional H (None) /hpf Assessment and Plan Assessment: 1. The patient is a 54-year-old male with a history of previous stroke involving the left temporal region. He presents to the emergency department with dizziness, blurred vision and right-sided weakness. MRI of the brain revealed no evidence of acute stroke. 2. Subtherapeutic INR 3. History of mechanical aortic valve replacement, due to bacterial endocarditis. 4. History of hypertension 5. History of hyperlipidemia 6. History of CVA 11/15/2021, with residual right-sided weakness. 7. Episode of shaking, likely due to relative hypoglycemia. His blood sugar was 79, although it has been running and 100s range in the hospital. Plan: Patient's strength of the right side of the body is back to baseline. Patient's episode of tremors most likely due to relative hypoglycemia. Examination is essentially unchanged. MRI of the brain without contrast just completed. On my review revealed no evidence of acute ischemic stroke. Reveals evidence of old left temporal/insular encephalomalacia. Also revealed evidence of some small vessel disease. Radiology report agreeing with no acute stroke. 2D echo revealed normal LV size and systolic function. LVEF 55 to 60%. Moderately increased septal wall thickness. Mild right atrial dilation. Negative agitated saline bubble study for [id number]-[id number]-yjth shunt. Aortic valve not well-visualized. Otherwise prosthetic aortic valve appears to be functioning normally with a peak gradient of 20 mmHg. No paravalvular aortic regurgitation. No central aortic regurgitation. Transesophageal echocardiography performed today: 1. Mildly dilated left atrium with evidence of closure of the left atrial appendage and no evidence of flow by color study 2. Normal left ventricular size and systolic function 3. Prosthetic aortic valve, On-x with normal appearance with trace to mild perivalvular aortic regurgitation. 4. Mild to moderate multiple jets mitral regurgitation 5. No shunting across the interatrial septum 6. Normal appearance of the descending thoracic aorta We will defer to cardiology regarding mild to moderate multiple jets MR. CTA head and neck showed: No evidence of dissection of the cervical internal carotid arteries or vertebral arteries. No evidence of significant stenosis at the carotid bifurcation. No evidence of intracranial high-grade stenosis or intracranial aneurysm. Fasting a.m. lipid panel cholesterol 168, LDL 84, HDL 32 and triglycerides 633. Patient on Crestor 5 mg at home. Would recommend increasing to at least 10 mg. Target LDL <70. Recommend medical treatment for hypertriglyceridemia. Hemoglobin A1c 5.6 Optimize control of blood pressure. Continue warfarin. Keep INR at therapeutic range, as recommended by the cardiology to be maintained between 2.5-3.0. Today INR is 2.5. Patient also on aspirin 81 mg, which will be continued. Neuro checks every 4 hours B12 314, folate 13.10 we will start oral B12 replacement for borderline B12 level.. EEG was normal during wakefulness, drowsiness and stage II sleep. No focal, lateralized or epileptiform activity was seen. Telemetry monitoring rule out any arrhythmia PT, OT, speech therapy DVT prophylaxis: Patient on warfarin. Patient clear from neurology point, when cleared by cardiology Neurology will sign off. Please reconsult if any other concerns.
[2024-11-27 12:15] VITALS: BP 142/79; PULSE 67; RESP 18
[2024-11-27 13:28] LABS: INR 3.4 (<1.2); Prothrombin Time 33.7 sec (10.0-12.5)
--- NOTE | 2024-11-27 15:23 | P.PN ---
Subjective Progress Note Date: 11/27/24 Principal diagnosis: Reason for follow-up is lactic acidosis and question of sepsis Patient is a 54-year-old male with a past medical history negative for heart failure with CVA TIA hypertension hyperlipidemia presenting to the hospital for evaluation of dizziness room spinning unable to drive did have elevated lactic acid probably this consultation On today's evaluation that is 11/27/2024, Patient is afebrile patient is currently on room air and denies having any shortness of breath, the patient denies any chest pain or cough, the patient denies any nausea vomiting did not have any abdominal pain and no diarrhea mention feeling better. Patient white count is 10.1 creatinine 0.87 INR is 3.4 blood culture has been negative Objective - Vital Signs Vital signs: Vital Signs Temp 98.1 F 11/27/24 08:50 Pulse 67 11/27/24 12:00 Resp 18 11/27/24 12:00 BP 142/79 11/27/24 12:00 Pulse Ox 98 11/27/24 12:00 FiO2 21 11/27/24 08:44 Intake & Output 11/26/24 11/27/24 11/27/24 18:59 06:59 18:59 Intake Total 480 480 Balance 480 480 Weight 117.5 kg Intake: Oral 480 480 Other: Voiding Method Toilet Toilet # Voids 2 2 - Exam GENERAL DESCRIPTION: Middle-age male up in the chair in no distress RESPIRATORY SYSTEM: Unlabored breathing , decreased breath sounds at bases HEART: S1 S2 regular rate and rhythm , ABDOMEN: Soft , no tenderness EXTREMITIES: No edema feet - Labs CBC & Chem 7: 11/27/24 07:09 11/27/24 07:09 Labs: Abnormal Lab Results - Last 24 Hours (Table) 11/27/24 11/27/24 Range/Units 07:09 13:07 PT 33.7 H (10.0-12.5) sec INR 3.4 H (<1.2) Glucose 114 H (74-99) mg/dL Microbiology - Last 24 Hours (Table) 11/21/24 13:20 Blood Culture - Final Blood Assessment and Plan (1) Lactic acidosis Status: Acute Code(s): E87.20 - ACIDOSIS, UNSPECIFIED SNOMED Code(s): 04094088 Plan: 1patient presented to hospital mostly with dizziness and weakness questionable prereanl and the patient also have elevated lactic acid but no other features supporting diagnosis of sepsis especially with normal CRP 2-patient also complaining of some abdominal discomfort coupled with elevated lactic acid may benefit from repeat CT with oral contrast as initial CT was done without any contrast repeat CT did shows improving stool burden but did not show any acute process 3-patient remains to be afebrile, the patient did have a YOVANY that was negative for any vegetation blood culture have been negative 4patient white count has been normal, influenza RSV COVID testing has been negative, UA has been negative, there is no need for any antibiotics on discharge Dictation was produced using [employer] dictation software. please excuse any gr ammatical, word or spelling errors. Time with Patient: Less than 30
--- NOTE | 2024-11-27 21:09 | DS ---
DISCHARGE SUMMARY FINAL DIAGNOSES: 1. Right-sided weakness and dizziness, possible acute stroke versus acute transient ischemic attack. 2. Old left frontal stroke. 3. Abnormal movements to the right side, rule out focal seizures. 4. Difficulty in opening the jaw, possibly mandibular subluxation or pain. 5. Hypertension. 6. Hyperlipidemia. 7. Multiple complex medical issues. DISCHARGE DISPOSITION: The patient will be discharged in stable condition and guarded prognosis. HISTORY OF PRESENT ILLNESS: This is a 54-year-old gentleman with a past medical history of multiple medical problems, admitted with weakness of the right side. The patient also had multiple other medical problems. Evaluations are negative. Neurology recommended to continue the recommendations. Triglycerides are elevated. Cardiology saw the patient. The patient will be discharged in a stable condition with guarded prognosis. Please refer to the medication reconciliation for list for medications. PHYSICAL EXAMINATION: The patient had minimal weakness on the right side. Otherwise, no focal deficits. Recommended to add vitamin B12, Lipitor, Lofibra, and Zetia, and follow up with Primary Physician as well as Neurology. Once again stable, but prognosis guarded. Monitor PT/INR closely. The dose of the Coumadin has been changed. MMODL / IJN: [id number] /
== END 2024-11-27 14:48 | disposition home or self-care (01) | DRG 149 ==
LOC: EC 19:32 → SUPCPDRO 19:32 → 3SCARD 22:49
PROVIDERS: ADMIT Hospitalist; ATTEND Hospitalist
PROC: B246ZZ4 Ultrasonography of Right and Left Heart, Transesophageal (ICD-10-PCS; principal; 2024-11-23 11:30)
DX: R42 Dizziness and giddiness (principal); E87.20 Acidosis, unspecified; E87.21 Acute metabolic acidosis; I69.351 Hemiplegia and hemiparesis following cerebral infarction affecting right dominant side; I11.0 Hypertensive heart disease with heart failure; Z95.2 Presence of prosthetic heart valve; E66.9 Obesity, unspecified; F32.A Depression, unspecified; K76.0 Fatty (change of) liver, not elsewhere classified; G93.89 Other specified disorders of brain; I42.8 Other cardiomyopathies; I50.9 Heart failure, unspecified; Z11.52 Encounter for screening for COVID-19; Z87.891 Personal history of nicotine dependence; K80.20 Calculus of gallbladder without cholecystitis without obstruction; M43.6 Torticollis; H93.19 Tinnitus, unspecified ear; I08.1 Rheumatic disorders of both mitral and tricuspid valves; H53.8 Other visual disturbances; G47.33 Obstructive sleep apnea (adult) (pediatric); E78.1 Pure hyperglyceridemia; I44.0 Atrioventricular block, first degree; R79.1 Abnormal coagulation profile; Z68.32 Body mass index [BMI] 32.0-32.9, adult; Z79.01 Long term (current) use of anticoagulants; Z79.82 Long term (current) use of aspirin; Z79.899 Other long term (current) drug therapy; Z87.442 Personal history of urinary calculi; I08.0 Rheumatic disorders of both mitral and aortic valves
CPT/HCPCS: 36415; 70100; 70110; 70450; 70496; 70498; 70551; 71045; 71250; 74176; 74177; 80048; 80053; 80061; 81001; 81003; 82607; 82746; 83036; 83605; 83721; 83735; 83880; 84100; 84145; 84439; 84443; 84481; 84484; 85025; 85379; 85610; 85652; 85730; 86140; 86255; 87040; 87636; 93005; 93306; 93312; 93320; 93325; 94760; 96361; 96372; 96374; 96375; 96376; 99291

== ENCOUNTER → 2024-11-30 | Outpatient (CLI) | payer BC ==
[2024-11-30 09:17] LABS: Prothrombin Time 24.9 sec (10.0-12.5)
[2024-11-30 14:56] LABS: Basophils # (A) 0.12 X 10*3/uL (0.00-0.10); Basophils % (A) 1.3 %; Eosinophils # (A) 0.15 X 10*3/uL (0.04-0.35); Eosinophils % (A) 1.7 %; HCT 43.1 % (39.6-50.0); HGB 14.6 g/dL (13.0-17.0); Lymphocytes # (A) 1.88 X 10*3/uL (0.90-5.00); Lymphocytes % (A) 20.7 %; MCH 29.3 pg (27.0-32.0); MCHC 33.9 g/dL (32.0-37.0); MCV 86.5 FL (80.0-97.0); Mean Platelet Volume 10.7 FL (9.5-12.2); Monocytes # (A) 0.64 X 10*3/uL (0.20-1.00); NRBC Per 100 WBC 0 X 10*3/uL (0.00-0.01); Neutrophils # (A) 6.21 X 10*3/uL (1.80-7.70); Neutrophils % (A) 68.4 %; Platelet Count 249 X 10*3/uL (140-440); RBC 4.98 X 10*6/uL (4.40-5.60); RDW 13.4 % (11.5-14.5); WBC 9.08 X 10*3/uL (4.50-10.00)
[2024-11-30 15:32] LABS: Blood Urea Nitrogen 14.9 mg/dL (9.0-27.0); Calcium 9.4 mg/dL (8.7-10.3); Carbon Dioxide 24.3 mmol/L (21.6-31.8); Chloride 107 mmol/L (96-109); Glucose 124 mg/dL (70-110); Potassium 4.5 mmol/L (3.5-5.5); Sodium 141 mmol/L (135-145)
[2024-11-30 18:02] LABS: INR 2.5 (<1.2)
== END | disposition home or self-care (01) ==
LOC: LABWHC1 08:36
PROVIDERS: ATTEND Hospitalist
DX: D64.9 Anemia, unspecified (principal)
CPT/HCPCS: 36415; 80048; 85025; 85610